=== PATIENT | male | born 1955 | race Caucasian/White ===

== ENCOUNTER → 2018-05-28 08:18 | Outpatient (BNVA) | payer OTHER, MEDICARE, SELFPAY | PROVIDERS: PCP Family Medicine; Visit Provider Urology | DX: N40.1 Benign prostatic hyperplasia with lower urinary tract symptoms (principal); I10 Essential (primary) hypertension; R35.0 Frequency of micturition; R39.15 Urgency of urination | CPT/HCPCS: 99213 ==

== ENCOUNTER → 2019-05-30 09:13 | Outpatient (BNVA) | payer OTHER, MEDICARE, SELFPAY | PROVIDERS: PCP Family Medicine; Referring Provider Family Medicine; Visit Provider Urology | DX: N40.1 Benign prostatic hyperplasia with lower urinary tract symptoms (principal); I10 Essential (primary) hypertension | CPT/HCPCS: 99213 ==

== ENCOUNTER 2024-08-01 15:19 | Outpatient (CLI) | payer OTHER, MEDICARE, SELFPAY ==
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
--- OUTSIDE RECORDS SUMMARY | 2024-08-01 15:24 | XMS_ITS | Clinical Summary ---
Author Organization [facility] Address [facility] Javier stephens [address] Care Team Providers Care Network Relations Consultant Name Role Phone Melvin Alarcon MD Primary Care Provider [phone] Allergies No known active allergies Medications Medication Sig Dispensed Refills Start Date End Date Status amlodipine-benazepr il (LOTREL) 5-10 mg per capsule Take 1 capsule by mouth daily. Active levothyroxine (Synthroid) 150 mcg tabletIndications:h ypothyroidism Take 150 mcg by mouth daily. Indications: hypothyroidism Active celecoxib (CELEBREX) 100 mg capsule Take 100 mg by mouth every other day. prn Active rosuvastatin (Crestor) 10 mg Tablet Take 10 mg by mouth daily. Active tamsulosin (FLOMAX) 0.4 mg Capsule, Sust. Release 24 hr Take 0.4 mg by mouth daily. Active betamethasone dipropionate (DIPROLENE) 0.05 % Ointment Apply topically 2 times daily. Prn Active tadalafiL (Cialis) 5 mg tablet Take 5 mg by mouth. Twice a week 03/28/2022 Active ixekizumab (Taltz Autoinjector, 3 Pack,) 80 mg/mL Auto-InjectorIndica tions:moderate to severe plaque psoriasis,psoriatic arthritis,L40.9, L40.50 Inject the contents of 2 pens (160mg) subcutaneously on week 0, then inject 1 pen (80mg) subcutaneously every 2 weeks on weeks 2, 4, 6, 8, 10, and 12, then inject 1 pen (80mg) subcutaneously every 28 days thereafter. Indications: moderate to severe plaque psoriasis, psoriasis associated with arthritis, L40.9, L40.50 3 mL 10/07/2023 Active ixekizumab (Taltz Autoinjector, 2 Pack,) 80 mg/mL Auto-InjectorIndica tions:moderate to severe plaque psoriasis,psoriatic arthritis,L40.9, L40.50 After first prescription, Inject 1 pen (80 mg) subcutaneously on weeks 4, 6, 8, 10 and 12, then move to prescription #3 for maintenance dosing. Indications: moderate to severe plaque psoriasis, psoriasis associated with arthritis, L40.9, L40.50 2 mL 1 10/07/2023 Active ixekizumab (Taltz Autoinjector) 80 mg/mL Auto-Injector INJECT 80 MG UNDER THE SKIN ON WEEK 12, THEN EVERY 4 WEEKS THEREAFTER 1 mL 12 07/20/2024 Active Hospital, Clinic, or Other Facility Administered Medication Ordered Dose Route Frequency Start Date End Date Status lidocaine (Xylocaine) 4 % (40 mg/mL) solution Top EVERY 4 HOURS PRN 06/19/2021 Active lidocaine (Xylocaine) 4 % (40 mg/mL) solution Top ONCE PRN 07/02/2022 Active lidocaine (Xylocaine) 4 % (40 mg/mL) solution Top EVERY 4 HOURS PRN 07/22/2023 Active Active Problems Problem Noted Date Diagnosed Date Benign prostatic hyperplasia with lower urinary tract symptoms 01/27/2019 Depression 01/27/2019 AAA (abdominal aortic aneurysm) without rupture 01/09/2017 Congenital nevus 02/25/2013 Dysphagia, unspecified(787.20) 02/03/2012 DIFFICULT AIRWAY 12/22/2011 Claustrophobia 12/17/2011 Overview (12/17/2011): Needs sedation for scans Ulnar neuropathy 12/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 1 PPD x 38 yrs. Quit 08/2011. Developed odynophagia early 11/2011, abx did not improve, . Referred to ENT. He does note some coughing in the morning ove the past year. Stagin12/09/11 CT H&N with contrast ([facility]): Mixed attenuation mass with lare low density areas suggesting necrotic change present deep to anterior aspect L SCM. Mass smoothly marginated, max 3.3 x 5.2 cm. 11/27/11 PET-[place] Despite premedication, severe claustrophobia allowed this can only to be performed from the lower chest to the mid thighs. The CT portion of the examination was performed from the top of the head to the mid thighs: This study is of limited diagnostic value. Due to claustrophobia no scanning of the head, neck or upper chest was performed. No distant metastases are identified in this study. 12/12/11 EUA with triple endoscopy and biospy: Findings: LPR changes to the mucosa. Difficult to visualize the larynx. Left tonsil is firm. Ulcerative area at the left tongue base also suspicious for primary. BOT and tonsil seem to be discontiguous. Path: A - Cyst, left vallecula: Benign squamous lined cyst B - Left tongue base: Invasive squamous cell carcinoma, intermediate grade C - Left tonsil: negative for malignancy Positive for HPV genotype p16 Therapy: Enrolled on RTOG 1016, randomized to cetuximab arm. Received 70 Gy completed 04/06/12 Resolved Problems Problem Noted Date Diagnosed Date Resolved Date Cigarette smoker 12/12/2011 12/16/2012 Thalassemia 12/12/2011 12/12/2011 Encounters Date Type Department Care Team Description 07/23/2024 [place] [phone] Tanner Frost MD 07/22/2024 9:30 AM EST Office [place] [address] Brandon Gregorio MD 07/22/2024 Travel 07/19/2024 [place] [address] Tanner Frost MD 07/12/2024 8:55 AM EST Ancillary Procedure Radiology Library at [facility] [place] [address] Unknown 07/12/2024 Interpretation Only Radiology Library at [facility] [place] [address] Unknown 06/16/2024 Specialty Pharmacy Pharmacy at [place] [phone] Yasmin Pedroza, JABIER 06/15/2024 Telephone Vascular Surgery at [place] [phone] Sky Beckman 06/10/2024 Orders [place] [address] Irene Iyer, [facility] Status post endovascular aneurysm repair (EVAR); Abdominal aortic aneurysm (AAA) without rupture, unspecified part 06/08/2024 Telephone [place] [address] Sky Beckman 06/07/2024 7:38 AM EST Anesthesia [place] [address] Marion Dunn MD 06/07/2024 7:30 AM EST - 06/07/2024 11:43 AM EST [place] [address] Brandon Gregorio MD VASCULAR EMBOLIZATION/OCCLUS ION,ARTERY,OTHER THAN [employer] S&I (WRVU 9.8) 06/07/2024 7:10 AM EST Ancillary Procedure Radiology Library at [facility] [place] [address] 06/07/2024 5:54 AM EST - 06/07/2024 3:45 PM EST Hospital Encounter [place] [address] Brandon Gregorio MD Status post endovascular aneurysm repair (EVAR); Abdominal aortic aneurysm (AAA) without rupture, unspecified part Discharge Disposition: Home 06/01/2024 10:00 AM EDT Office Visit Radiation Oncology at [address] [phone] Jesse Mcmahan MD Cancer of base of tongue 06/01/2024 Travel 05/16/2024 Tele[place] [address] Dianne Gilman 05/09/2024 Orders [place] [address] Lashawn Alves, RN Status post endovascular aneurysm repair (EVAR); Abdominal aortic aneurysm (AAA) without rupture, unspecified part from Last 3 Months Family History Medical History Relation Comments Diabetes Father Heart Failure Father Abdominal Aortic Aneurysm Maternal Grandfather Abdominal Aortic Aneurysm Maternal Uncle Diabetes Mother Heart Failure Mother Thyroid Disease Mother hypothyroidism Diabetes Other Thyroid Disease Sister 2 hypothyroidism Relation Status Comments Father Alive Maternal Grandfather Maternal Grandmother Maternal Uncle Mother Alive Other Paternal Grandfather Paternal Grandmother Sister 1 Alive Sister 2 Social History Tobacco Use Types Packs/Day Years Used Date Smoking Tobacco: Former Cigarettes 1 38 0 08/06/1973 - 08/06/2011 Smokeless Tobacco: Never Tobacco Cessation:Counseling Given: Not Answered Alcohol Use Standard Drinks/Week Comments Yes 2 (1 standard drink = 0.6 oz pure alcohol) rarely one glass of wine occasionally, one every other day [facility] Inpatient Questions Answer Date Recorded Does Anyone [...] on file Sexual Orientation Not on file Last Filed Vital Signs Vital Sign Reading Time Taken Comments Blood Pressure 140/91 07/22/2024 9:31 AM EST Pulse 73 07/22/2024 9:31 AM EST Temperature 37.5 ??C (99.5 ??F) 06/07/2024 12:[address] Respiratory Rate 14 06/07/2024 3:26 PM EST Oxygen Saturation 99% 06/07/2024 3:26 PM EST Inhaled Oxygen Concentration - - Weight 94.3 kg (208 lb) 07/22/2024 9:31 AM EST Height 175.3 cm (5' 9) 07/22/2024 9:31 AM EST Body Mass Index 30.72 07/22/2024 9:31 AM EST Plan of Treatment Upcoming Encounters Date Type Department Care Team (Late st Contact Info) Description 05/24/2025 11:00 AM EDT Office Visit Radiation Oncology at [address] [phone] Jesse Mcmahan MD [facility] [place] [address] Health Maintenance Due Date Last Done Comments CT Colonography 1956 Colonoscopy 1956 Colorectal Cancer Screening 1956 FIT DNA 1956 FIT 1956 Sigmoidoscopy (10 year) with FIT yearly 1956 Sigmoidoscopy 1956 Tetanus/Diphtheria/Pertussis Vaccines (1 - Tdap) 1975 Pneumoccocal Vaccine: 65+ (1 of 1 - PCV) 2006 Zoster vaccine (1 of 2) 2006 Advance Directive 2011 RSV Vaccine (1 - Risk 60-74 years 1-dose series) 2016 Covid-19 Vaccine (4 - 2023-2 5 season) 2024 03/26/2021, 09/14/2020, 08/17/2020 Influenza (Flu) vaccine (1 o f 1 - Influenza standard series) 2024 Diabetes Screening (HgbA1C o r Glucose) 01/02/2026 01/02/2023, 01/29/2019, 01/28/2019, Additional history exists AAA Screen Completed 03/04/2019, 12/21/2018 Hepatitis C Screening Completed 01/02/2023 Medical Devices Implanted Type Area Globe Cleaner Device Identifier Shelf Expiration Date Model / Serial / Lot Embold Fibered [id number] Implanted:Qty: 2 on 06/07/2024 by Brandon Gregorio MD at [facility] Coil N/A: Arterial [employer] 03/31/2026 [id number] / / [id number] Description:Lumbar Embold Fibered [id number] Implanted:Qty: 3 on 06/07/2024 by Brandon Gregorio MD at [facility] Coil N/A: Arterial [employer] 03/30/2026 [id number] / / [id number] Description:Lumbar Embold Fibered [id number] Implanted:Qty: 1 on 06/07/2024 by Brandon Gregorio MD at [facility] Coil N/A: Arterial [employer] 03/15/2026 [id number] / / [id number] Description:lumbar Fibered Embold Implanted:Qty: 1 on 06/07/2024 by Brandon Gregorio MD at [facility] Coil Arterial [employer] 03/18/2026 [id number] / / [id number] Description:lumbar Embold Fibered [id number] Implanted:Qty: 2 on 06/07/2024 by Brandon Gregorio MD at [facility] Coil Right: Arterial [employer] [id number] 03/31/2026 [id number] / / [id number] Description:RIGHT hypogastri c artery Graft,Endp,26m m,14.5mm,16cm ([id number]) ([employer]oreq) - [id number] Implanted:Qty: 1 on 01/28/2019 by Brandon Gregorio MD at [facility] IMPLANTS N/A: Aorta [employer] 09/26/2021 [id number] / Description:[place] Cap Pricing item Closu,Vsl,Prcl ,Prgld,Smc,6fr ([id number]) - [id number] Implanted:Qty: 3 on 01/28/2019 by Brandon Gregorio MD at [facility] IMPLANTS N/A: Aorta [employer] 09/30/2020 [id number] / [id number] / Description:2 left groin, 1 right groin Graft,Excl,14. [id number] ([id number]) ([employer]) - [id number] Implanted:Qty: 1 on 01/28/2019 by Brandon Gregorio MD at [facility] IMPLANTS N/A: Arterial [employer] 11/01/2021 [id number] / [id number] / Description:Right Iliac Dorina ry. [place] Cap Pricing item Graft,Excl,16m [id number] ([id number]) ([employer]) - [id number] Implanted:Qty: 1 on 01/28/2019 by Brandon Gregorio MD at [facility] IMPLANTS N/A: Arterial [employer] 06/17/2021 [id number] / [id number] / Description:Left Iliac Arter y. 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 [employer] Poly ([id number]) - [id number] Implanted:Qty: 1 on 06/07/2024 by Brandon Gregorio MD at [facility] IMPLANTS Right: Arterial [employer] [id number] 10/31/2025 [id number] / / [id number] Description:femoral artery Device Vascular Closure [id number] 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 [employer] ([id number]) - [id number] Implanted:Qty: 1 on 06/07/2024 by Brandon Gregorio MD at [facility] IMPLANTS Left: Arterial [employer] 10/31/2025 [id number] / / [id number] Description:femoral artery Procedures Procedure Name Priority Date/Time Associated Diagnosis Comments FILM LIBRARY STORAGE ONLY CT ABDOMEN AND PELVIS Routine 07/12/2024 8:[address] SCAN (SCAN) 07/12/2024 12:00 AM EST BLOOD GAS ARTERIAL POC Routine 06/07/2024 12:18 PM EST BLOOD GAS ARTERIAL POC Routine 06/07/2024 12:11 PM EST BLOOD GAS ARTERIAL POC Routine 06/07/2024 8:48 AM EST Vascular Embolization Or Occlusion Arterial Rad S&I(41340) 06/07/2024 7:37 AM EST Status post endovascular aneurysm repair (EVAR) Abdominal aortic aneurysm (AAA) without rupture, unspecified part IR OR VASC ANGIOGRAM IMAGE STORAGE ONLY Routine 06/07/2024 7:06 AM EST CREATININE STAT 06/07/2024 6:37 AM EST Status post endovascular aneurysm repair (EVAR) Abdominal aortic aneurysm (AAA) without rupture, unspecified part VASCULAR EMBOLIZATION/OCCLUSIO N,ARTERY,OTHER THAN HEMORRHAGE, INC. S&I Routine 06/07/2024 5:58 AM EST Status post endovascular aneurysm repair (EVAR) Abdominal aortic aneurysm (AAA) without rupture, unspecified part IMPLANTABLE DEVICES SCAN 06/07/2024 12:00 AM EST HEPATITIS C ANTIBODY Routine 01/02/2023 11:45 AM EDT Psoriasis with arthropathy COMPREHENSIVE METABOLIC PANEL Routine 01/02/2023 11:45 AM EDT Psoriasis with arthropathy CT ANGIOGRAM ABDOMEN AND PELVIS W CONTRAST Routine 03/04/2019 1:00 PM EDT AAA (abdominal aortic aneurysm) without rupture from Last 3 Months or Most Recently Relevant to Health Maintenance Results * Film Library- Storage Only CT Abdomen & Pelvis (07/12/2024 8:55 AM EST) 07/12/2024 10:2 6 AM EST Narrative [facility] - 07/12/2024 10:26 AM EST This exam is auto-finalizing. It's purpose is for storage only. Unknown IMG FILM LIBRARY ORD ERABLES ED Ferreira * Scan Doc: CT Scan (07/12/2024 12:00 AM EST) Anatomical Region Laterality Modality Other Narrative 07/12/2024 12:00 AM EST Ordered by an unspecified provider. Scanning Provider MEDIA MGR SCAN EXT O RDR/RSLT * (ABNORMAL) Blood Gas, Arterial POC (06/07/2024 12:18 PM EST) Only the most recent of3 resultswithin the time period is included. pH, Arterial 7.40 7.35 - 7.45 06/07/2024 12:19 PM [facility] PH Corrected, Arterial 7.41 7.35 - 7.45 06/07/2024 12:19 PM [facility] PCO2, Arterial 38 35 - 45 mmHg 06/07/2024 12:19 PM [facility] PCO2 Corrected, Arterial 38 35 - 45 mmHg 06/07/2024 12:19 PM [facility] PO2, Arterial 150(H) 85 - 104 mmHg 06/07/2024 12:19 PM [facility] PO2 Corrected, Arterial 148.5(H) 85 - 104 mmHg 06/07/2024 12:19 PM [facility] Bicarbonate, Arterial 23.2 20.0 - 26.0 mmol/L 06/07/2024 12:19 PM [facility] Base Excess, Arterial -1.5 -3.0 - 3.0 mmol/L 06/07/2024 12:19 PM [facility] Hemoglobin, Arterial 12.7(L) 13.7 - 16.5 g/dL 06/07/2024 12:19 PM [facility] Oxyhemoglobin, Arterial 97.9(H) 94.0 - 97.0 % 06/07/2024 12:19 PM [facility] Carboxyhemoglobin , Arterial 0.4 % 06/07/2024 12:19 PM [facility] Comment: Nonsmokers: 0.5-1.5% COHB ?? Smokers: Variable ??but usually less than 10% ?? Toxic: 20-30% COHB ?? Lethal: Greater than 60% COHB Methemoglobin, Arterial 0.5 <=1.5 % 06/07/2024 12:19 PM [facility] Sodium, Arterial 136 135 - 145 mmol/L 06/07/2024 12:19 PM [facility] Potassium, Arterial 4.4 3.5 - 5.0 mmol/L 06/07/2024 12:19 PM [facility] Chloride, Arterial 104 98 - 107 mmol/L 06/07/2024 12:19 PM [facility] Lactate, Arterial 3.0(H) 0.5 - 2.2 mmol/L 06/07/2024 12:19 PM [facility] Fraction of Inspired Oxygen 59 % 06/07/2024 12:19 PM [facility] Flow Rate 0.6 L/min 06/07/2024 12:19 PM [facility] PF Ratio 254 Ratio 06/07/2024 12:19 PM [facility] Comment:PF ratio calculated using the non-temperature corrected pO2 result. Patient Temperature 36.7 C 06/07/2024 12:19 PM [facility] IONIZED CALCIUM, ARTERIAL 1.15 1.15 - 1.33 mmol/L 06/07/2024 12:19 PM [facility] Glucose, Arterial 107 65 - 199 mg/dL 06/07/2024 12:19 PM [facility] Comment:Glucose Concentratio n >=200 mg/dL plus symptoms is consistent with Diabetes Mellitus. Blood ARTERIAL BLOOD / Unknown 06/07/2024 12:18 PM EST 06/07/2024 12:19 PM EST Brandon Gregorio MD POINT OF CARE TEST O RDERABLES Performing Organization Address City/[facility]/ZIP Co de Phone Number [facility] [place] [address] * IR OR VASC Aniogram Image Storage Only (06/07/2024 7:06 AM EST) Narrative [facility] - 06/07/2024 7:06 AM EST This exam is auto-finalizing. It's purpose is for storage only. Brandon Gregorio MD IMG FILM LIBRARY ORD ERABLES Performing Organization Address City/[facility]/ZIP Co de Phone Number [place], [place] * Creatinine (06/07/2024 6:37 AM EST) Creatinine 0.89 0.80 - 1.50 mg/dL 06/07/2024 7:14 AM EST [facility] Est Glomerular Filtration Rate - Male 93 mL/min/1. 73 m?? 06/07/2024 7:14 AM EST [facility] Comment: This patient's estimated GFR was calculated using the 2020 CKD-EPI equation. The estimated GFR can vary from the measured GFR by up to 30% in the absence of rapidly changing kidney function. Assessment of the estimated GFR is not appropriate when creatinine concentrations are rapidly changing. For clinical situations in which a more precise estimate of GFR is necessary, consider alternative methods of GFR estimation such as a 24-hour urine creatinine clearance. Assignment of CKD stage 1 - 5 for patients with an eGFR near the transition point between stages may be based on clinical assessment of muscle mass and symptoms in addition to eGFR. Link: eGFR Calculator [employer] Blood VENOUS BLOOD SPECIMEN / Unknown Venipuncture / Unknown 06/07/2024 6:37 AM EST 06/07/2024 6:43 AM EST Dhara Prabhakar [employer]DEL [employer]GRAPH[employer]' CHEMISTRY ORDERABLES Performing Organization Address [facility]/ZIP Co de Phone Number [facility] [place] [address] * Scan Doc: Implantable Devices (06/07/2024 12:00 AM EST) Narrative 06/07/2024 12:00 AM EST Ordered by an unspecified provider. Scanning Provider MEDIA MGR SCAN EXT O RDR/RSLT * Hepatitis C Antibody (01/02/2023 11:45 AM EDT) Hepatitis C Antibody Negative Negative [facility] Blood 01/02/2023 11:4 5 AM EDT 01/02/2023 12:05 PM EDT Narrative Resulting Agency Comment Spec In Lab Tanner Frost MD CHEMISTRY ORDERABLES [facility] [place] [address] * Comprehensive metabolic panel (non-fasting) (01/02/2023 11:45 AM EDT) Glucose 105 65 - 199 mg/dL [facility] Comment:Diabetes: >=200 mg/d L plus symptoms Blood Urea Nitrogen 15 10 - 20 mg/dL [facility] Creatinine 0.91 0.80 - 1.50 mg/dL [facility] Sodium 140 135 - 145 mmol/L [facility] Potassium 4.0 3.5 - 5.0 mmol/L [facility] Comment: Please note: ??Patients with WBC >100,000 may have falsely elevated Potassium levels. ??For accurate Potassium quantification in these patients send serum separator tube (gold top) for subsequent determinations. ??Contact the Clinical Chemistry Laboratory if there are any questions. Chloride 104 98 - 107 mmol/L [facility] Carbon Dioxide 26 22 - 31 mmol/L [facility] Anion Gap 10 5 - 15 mmol/L [facility] Calcium 9.6 8.5 - 10.5 mg/dL [facility] Protein, Total 6.8 6.1 - 8.0 g/dL [facility] Albumin 4.2 3.2 - 5.2 g/dL [facility] Aspartate Aminotransferase 19 0 - 39 unit/L [facility] Alanine Aminotransferase 14 0 - 55 unit/L [facility] Alkaline Phosphatase 90 40 - 130 unit/L [facility] Bilirubin, Total 0.6 0.2 - 1.3 mg/dL [facility] Est Glomerular Filtration Rate 93 >=60 mL/min/1. 73 m?? [facility] Comment: This patient's estimated GFR was calculated using the 2020 CKD-EPI equation. The estimated GFR can vary from the measured GFR by up to 30% in the absence of rapidly changing kidney function. Assessment of the estimated GFR is not appropriate when creatinine concentrations are rapidly changing. For clinical situations in which a more precise estimate of GFR is necessary, consider alternative methods of GFR estimation such as a 24-hour urine creatinine clearance. Assignment of CKD stage 1-5 for patients with an eGFR near the transition point between stages may be based on clinical assessment of muscle mass and symptoms in addition to eGFR. Blood 01/02/2023 11:4 5 AM EDT 01/02/2023 12:05 PM EDT Narrative Resulting Agency Comment Spec In Lab Tanner Frost MD CHEMISTRY ORDERABLES [facility] [place] [address] * CT Angiogram Abdomen & Pelvis w Contrast (Generic) (03/04/2019 1:00 PM EDT) Anatomical Region Laterality Modality Abdomen, Pelvis Computed Tomogra phy Impressions 03/04/2019 2:37 PM EDT Status post endovascular repair of infrarenal abdominal aortic aneurysm with bifurcated aortoiliac stent graft. Possible small endoleak (type II) noted as described above. ?? I have personally reviewed the image(s) and the residents interpretation and agree with the findings, Bernardino Roberts at 03/04/2019 2:37 PM Thank you for letting us participate in the care of this patient. For questions regarding this report, please contact the number below. ? Electronically signed by: Bernardino Roberts [facility] ([phone]), at 03/04/2019 2:37 PM Narrative 03/04/2019 2:37 PM EDT EXAMINATION: CT ANGIOGRAM ABDOMEN AND PELVIS W CONTRAST (GENERIC) CLINICAL HISTORY: AAA s/p EVAR, interval f/u TECHNIQUE: Helical CT angiogram of the abdomen and pelvis was performed following intravenous administration of contrast. Administered 76.0 ml of OMNIPAQUE 350.00 mg/ml. MPRs were performed. Multiplanar images were reviewed and 3-D images were generated on an independent workstation. COMPARISON: CTA abdomen and pelvis 12/21/2018. FINDINGS: VASCULAR FINDINGS Abdominal aorta: There has been previous endovascular repair of infrarenal abdominal aortic aneurysm with bifurcated aortoiliac stent graft. [place] sac now measures 58 x 50 mm in maximum dimension on centerline reformatted images (in the axial plane it measures 55 x 59 mm). On the arterial phase images a small blush of enhancement is seen external to the endograft in the [place] aneurysm sac in the location of the origin of the inferior mesenteric artery (series 4, image 267). This is not visualized on the delayed postcontrast images.. Celiac: Widely patent. SMA: Widely patent. Right renal artery: Widely patent. Left renal artery: Widely patent. Accessory left renal artery is present and is also widely patent. CHAU: Widely patent. Right: Common iliac artery: Widely patent. External iliac artery: Widely patent. Internal iliac artery: Widely patent. Common femoral artery: Widely patent. Superficial femoral artery: The visualized aspects are widely patent. Profundus femoral artery: The visualized aspects are widely patent. Left: Common iliac artery: Widely patent. External iliac artery: Widely patent. Internal iliac artery: Widely patent. Common femoral artery: Widely patent. Superficial femoral artery: The visualized aspects are widely patent. Profundus femoral artery: The visualized aspects are widely patent. NON-VASCULAR FINDINGS Lower chest: Normal. Liver: Enlarged with mild steatosis. Bile ducts: Nondilated. Gallbladder: No calcified gallstones. Normal caliber wall. Pancreas: Normal attenuation without ductal dilatation. Spleen: Normal. Kidneys/adrenals: 13 mm left upper pole renal cyst is unchanged. Urinary Bladder: Normal. Lymph Nodes: No enlarged lymph nodes. Bowel: Nondilated, no wall thickening. Sigmoid diverticulosis without evidence of diverticulitis. Peritoneum and mesentery: No ascites, free air, or loculated fluid collection. No mesenteric inflammation. Osseous structures: No suspicious findings. Procedure Note Bernardino Roberts MD - 03/04/2019 EXAMINATION: CT ANGIOGRAM ABDOMEN AND PELVIS W CONTRAST (GENERIC) CLINICAL HISTORY: AAA s/p EVAR, interval f/u TECHNIQUE: Helical CT angiogram of the abdomen and pelvis was performed following intravenous administration of contrast. Administered 76.0 mlof OMNIPAQUE 350.00 mg/ml. MPRs were performed. Multiplanar images werereviewed and 3-D images were generated on an independent workstation. COMPARISON: CTA abdomen and pelvis 12/21/2018. FINDINGS: VASCULAR FINDINGS Abdominal aorta: There has been previous endovascular repair ofinfrarenal abdominal aortic aneurysm with bifurcated aortoiliac stent graft. Nativesac now measures 58 x 50 mm in maximum dimension on centerline reformatted images(in the axial plane it measures 55 x 59 mm). On the arterial phase images asmall blush of enhancement is seen external to the endograft in the nativeaneurysm sac in the location of the origin of the inferior mesenteric artery(series 4, image 267). This is not visualized on the delayed postcontrast images.. Celiac: Widely patent. SMA: Widely patent. Right renal artery: Widely patent. Left renal artery: Widely patent. Accessory left renal artery is presentand is also widely patent. CHAU: Widely patent. Right: Common iliac artery: Widely patent. External iliac artery: Widely patent. Internal iliac artery: Widely patent. Common femoral artery: Widely patent. Superficial femoral artery: The visualized aspects are widely patent. Profundus femoral artery: The visualized aspects are widely patent. Left: Common iliac artery: Widely patent. External iliac artery: Widely patent. Internal iliac artery: Widely patent. Common femoral artery: Widely patent. Superficial femoral artery: The visualized aspects are widely patent. Profundus femoral artery: The visualized aspects are widely patent. NON-VASCULAR FINDINGS Lower chest: Normal. Liver: Enlarged with mild steatosis. Bile ducts: Nondilated. Gallbladder: No calcified gallstones. Normal caliber wall. Pancreas: Normal attenuation without ductal dilatation. Spleen: Normal. Kidneys/adrenals: 13 mm left upper pole renal cyst is unchanged. Urinary Bladder: Normal. Lymph Nodes: No enlarged lymph nodes. Bowel: Nondilated, no wall thickening. Sigmoid diverticulosis withoutevidence of diverticulitis. Peritoneum and mesentery: No ascites, free air, or loculated fluidcollection. No mesenteric inflammation. Osseous structures: No suspicious findings. IMPRESSION Status post endovascular repair of infrarenal abdominal aortic aneurysmwith bifurcated aortoiliac stent graft. Possible small endoleak (type II) notedas described above. I have personally reviewed the image(s) and the residents interpretationand agree with the findings, Bernardino Roberts at 03/04/2019 2:37 PM Thank you for letting us participate in the care of this patient. Forquestions regarding this report, please contact the number below. Electronically signed by: Beranrdino Roberts [facility]([phone]), at 03/04/2019 2:37 PM Brandon Gregorio MD IMG CT ORDERABLES from Last 3 Months or Most Recently Relevant to Health Maintenance Advance Directives Documents on File Type Date Recorded Patient It Quality Analyst Expl anation Personal It Quality Analyst 04/15/2024 10:42 AM Personal It Quality Analyst * Full Code (Latest Code Status on File) Date Activated Date Inactivated Comments 01/28/2019 7:55 AM 01/29/2019 2:53 PM Question Answer Comments Does patient have capacity to make decision: Yes Care Teams Network Relations Consultant Relationship Specialty Start Date End Date Melvin Alarcon MD [address] [place] [address] PCP - General Internal Medicine 07/22/23
--- OUTSIDE RECORDS SUMMARY | 2024-08-01 15:24 | XMS_ITS | Encounter Summary ---
Author Organization [facility] [place] [place] [address] Care Team Providers Care Stallion Keeper Name Role Phone Melvin Alarcon MD Primary Care Provider [phone] Reason for Visit * Reason Comments Medication Refill Encounter Details Date Type Department Care Team (Late st Contact Info) Description 07/19/2024 [place] [address] Tanner Frost MD [facility] [place] [address] Social History Tobacco Use Types Packs/Day Years Used Date Smoking Tobacco: Former Cigarettes 1 38 0 08/06/1973 - 08/06/2011 Smokeless Tobacco: Never Alcohol Use Standard Drinks/Week Comments Yes 2 (1 standard drink = 0.6 oz pure alcohol) rarely one glass of wine occasionally, one every other day [facility] Inpatient Questions Answer Date Recorded Does Anyone [...] on file documented as of this encounter Plan of Treatment Upcoming Encounters Date Type Department Care Team (Late Contact Info) Description 05/24/2025 11:00 AM EDT Office Visit Radiation Oncology at [address] [phone] Jesse Mcmahan MD [facility] [place] [address] documented as of this encounter Visit Diagnoses Not on filedocumented in this encounter Care Teams Stallion Keeper Relationship Specialty Start Date End Date Melvin Alarcon MD [address] [place] [address] PCP - General Internal Medicine 07/22/23 documented as of this encounter
--- OUTSIDE RECORDS SUMMARY | 2024-08-01 15:24 | XMS_ITS | Encounter Summary ---
Author Organization [facility] [place] [address] Care Team Providers Care Product Representative Name Role Phone Melvin Alarcon MD Primary Care Provider Encounter Details Date Type Department Care Team (Latest Contact Info) Description 07/22/2024 Travel Social History Tobacco Use Types Packs/Day Years Used Date Smoking Tobacco: Former Cigarettes 1 38 0 08/06/1973 - 08/06/2011 Smokeless Tobacco: Never Alcohol Use Standard Drinks/Week Comments Yes 2 (1 standard drink = 0.6 oz pure alcohol) rarely one glass of wine occasionally, one every other day [facility] Inpatient Questions Answer Date Recorded Does Anyone [...] AM EDT Office Visit Radiation Oncology at [address] [phone] Jesse Mcmahan MD [facility] [place] [address] documented as of this encounter Visit Diagnoses Not on filedocumented in this encounter Care Teams Product Representative Relationship Specialty Start Date End Date Melvin Alarcon MD [address] [place] [address] PCP - General Internal Medicine 07/22/23 documented as of this encounter
--- OUTSIDE RECORDS SUMMARY | 2024-08-01 15:24 | XMS_ITS | Encounter Summary ---
Author Organization [facility] [address] [place] [address] Care Team Providers Care Regional Tanker Truck Driver Name Role Phone Melvin Alarcon MD Primary Care Provider [phone] Reason for Visit * Reason Comments Medication Refill Encounter Details Date Type Department Care Team (Late st Contact Info) Description 07/23/2024 Refill [place] [address] Tanner Frost MD [facility] [place] [address] Social History Tobacco Use Types Packs/Day Years Used Date Smoking Tobacco: Former Cigarettes 1 38 0 08/06/1973 - 08/06/2011 Smokeless Tobacco: Never Alcohol Use Standard Drinks/Week Comments Yes 2 (1 standard drink = 0.6 oz pure alcohol) rarely one glass of wine occasionally, one every other day [facility] Inpatient Questions Answer Date Recorded [...] AM EDT Office Visit Radiation Oncology at [address] [address] Jesse Mcmahan MD [facility] [place] [address] documented as of this encounter Visit Diagnoses Not on filedocumented in this encounter Care Teams Regional Tanker Truck Driver Relationship Specialty Start Date End Date Melvin Alarcon MD [address] [place] [address] PCP - General Internal Medicine 07/22/23 documented as of this encounter
--- OUTSIDE RECORDS SUMMARY | 2024-08-01 15:25 | XMS_ITS | Encounter Summary ---
[place] [address] Care Team Providers Care Microsoft Dynamics Developer Name Role Phone Melvin Alarcon MD Primary Care Provider [phone] Encounter Details Date Type Department Care Team (Latest Contact Info) Description 12/25/2023 Specialty [place] [phone] Maxi Cartagena [facility] Intervention - Manual (ixekizumab) for Rheumatology Social History Tobacco Use Types Packs/Day Years Used Date Smoking Tobacco: Former Cigarettes 1 38 0 08/06/1973 - 08/06/2011 Smokeless Tobacco: Never Alcohol Use Standard Drinks/Week Comments Yes 1 (1 standard drink = 0.6 oz pure alcohol) rarely one glass of wine occasionally Sex and Gender Information Value Date Recorded Sex Assigned at Not on file Gender Identity Not on file Sexual Orientation Not on file documented as of this encounter Progress Notes * Maxi Cartagen[facility] - 12/25/2023 3:02 PM EDT Specialty Pharmacy Consultation; Maxi Cartagena RPH Comprehensive Medication Management (CMM): Specialty Consult, Intervention Sebastian Del Cidal 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 Sebastian Wyatt is a 68 y.o. (1955) male who was contacted in regard to specialty medication intervention. Spoke with Lula regarding Taltz. Recommendation: Clinic received a fax requesting new prescription for Taltz, however prescriptions to cover the whole year were sent to [facility] on 10/08/23. Outcome: Called [facility] and spoke with Lula. She was able to confirm that the pharmacy had received all 3 prescriptions to cover his loading and maintenance doses. No further action needed at this time. Specialty Pharmacy Intervention: Intervention Category (Nature of Intervention): Other Other Interventions: Coordinate non-financial specialty medication issues (eg, sites of care, discharge counseling, infusion coordination) Maxi Cartagena RPH 12/25/23 3:08 PM documented in this encounter Plan of Treatment Upcoming Encounters Date Type Department Care Team (Late st Contact Info) Description 05/24/2025 11:00 AM EDT Office Visit Radiation Oncology at [address] [phone] Jesse Mcmahan MD [facility] [place] [address] documented as of this encounter Visit Diagnoses Diagnosis Psoriasis with arthropathy Psoriatic arthropathy documented in this encounter Care Teams Microsoft Dynamics Developer Relationship Specialty Start Date End Date Melvin Alarcon MD [address] [place] [address] PCP - General Internal Medicine 07/22/23 documented as of this encounter
--- OUTSIDE RECORDS SUMMARY | 2024-08-01 15:25 | XMS_ITS | Encounter Summary ---
Author Organization [facility] [place] [address] Care Team Providers Care Research Compliance Specialist Name Role Phone Melvin Alarcon MD Primary Care Provider [phone] Encounter Details Date Type Department Care Team (Late st Contact Info) Description 06/15/2024 Telephone [place] [phone] Sky Beckman Social History Tobacco Use Types Packs/Day Years Used Date Smoking Tobacco: Former Cigarettes 1 38 0 08/06/1973 - 08/06/2011 Smokeless Tobacco: Never Alcohol Use Standard Drinks/Week Comments Yes 2 (1 standard drink = 0.6 oz pure alcohol) rarely one glass of wine occasionally, one every other day [facility] Inpatient Questions Answer Date Recorded Does [...] on file documented as of this encounter Miscellaneous Notes * Telephone Encounter - Sky Beckman - 06/15/2024 8:[address] order for prior authorization, patient would like this completed at [facility]. documented in this encounter Plan of Treatment Upcoming Encounters Date Type Department Care Team (Late st Contact Info) Description 05/24/2025 11:00 AM EDT Office Visit Radiation Oncology at [address] [address] Jesse Mcmahan MD [facility] [place] [address] documented as of this encounter Visit Diagnoses Not on filedocumented in this encounter Care Teams Research Compliance Specialist Relationship Specialty Start Date End Date Melvin Alarcon MD [address] [place] [address] PCP - General Internal Medicine 07/22/23 documented as of this encounter
--- OUTSIDE RECORDS SUMMARY | 2024-08-01 15:25 | XMS_ITS | Encounter Summary ---
Author Organization [facility] [address] [place] [address] Care Team Providers Care Security Rover Name Role Phone Melvin Alarcon MD Primary Care Provider [phone] Encounter Details Date Type Department Care Team (Late Contact Info) Description 03/02/2024 Interpretation Only Radiology Library at [facility] [place] [phone] Unknown None Social History Tobacco Use Types Packs/Day Years [...] AM EDT Office Visit Radiation Oncology at [address] [address] Jesse Mcmahan MD [facility] [place] [address] documented as of this encounter Procedures Procedure Name Priority Date/Time Associated Diagnosis Comments FILM LIBRARY STORAGE ONLY CT ABDOMEN Routine 03/02/2024 8:30 AM EDT documented in this encounter Results * Film Library- Storage Only CT Abdomen (03/02/2024 8:30 AM EDT) 03/02/2024 10:2 1 AM EDT Narrative RAD - 03/02/2024 10:21 AM EDT This exam is auto-finalizing. It's purpose is for storage only. Unknown IMG FILM LIBRARY ORD ERABLES [place], [place] documented in this encounter Visit Diagnoses Not on filedocumented in this encounter Care Teams Security Rover Relationship Specialty Start Date End Date Melvin Alarcon MD [address] [place] [address] PCP - General Internal Medicine 07/22/23 documented as of this encounter
--- OUTSIDE RECORDS SUMMARY | 2024-08-01 15:25 | XMS_ITS | Encounter Summary ---
[place] [address] Care Team Providers Care Publishing Systems Analyst Name Role Phone Melvin Alarcon MD Primary Care Provider [phone] Reason for Visit * Reason Comments Prior Authorization Taltz 80mg/ml SOAJ Encounter Details Date Type Department Care Team (Late st Contact Info) Description 10/07/2023 Specialty [place] [phone] Yasmin Pedroza, [facility] Social History Tobacco Use Types Packs/Day Years [...] as of this encounter Progress Notes * Yasmin Myers - 10/07/2023 11:58 AM EST [facility], Medication Prior Authorization Submission Patient: Sebastian Wyatt Patient : 1955 Patient Address: [address] [address] (home) Medication Name: TALTZ AUTOINJECTOR (3 PACK) 80 MG/ML SUBCUTANEOUS Medication ID: Subscriber Insurance: [employer] ([facility]) Subscriber Insurance Comment: Fax: Physician: KALLIE GIL Physician Comment: Sent Via: [facility] L[place]: [id number] Ref/Case/PA#: Medication Strength Frequency Requested: Taltz 80mg/ml SOAJ INJECT THE CONTENTS OF 2 PENS (160MG) SUBCUTANEOUSLY ON WEEK 0, THEN INJECT 1 PEN (80MG) SUBCUTANEOUSLY EVERY 2 WEEKS ON WEEKS 2, 4, 6, 8, 10, AND 12, THEN INJECT 1 PEN (80MG) SUBCUTANEOUSLY EVERY 28 DAYS THEREAFTER Qty/Day Supply: 10/28 New Start: New to Therapy Diagnosis & ICD-10 Code: Psorisis L40.9, Psoriatic Arthritis L40.50 Patient Notified: Yes Submission Notes: - New Medication Yasmin Myers 10/07/23 12:00 PM * Yasmin Myers - 10/07/2023 11:58 AM EST [facility], Prior Authorization Approval Medication Name: TALTZ AUTOINJECTOR (3 PACK) 80 MG/ML SUBCUTANEOUS Medication ID: Approval Dates: 09/07/2023 to 01/05/2024 Insurance requirements/notes: - Patient must fill with [facility]. Other Notes: - customer relations representative confirmed that all dosing schedules are covered under the prior authorization. Their plan has a maximum quantity limit of 3 pens per 28 days, so as long as the quantity is 3 or less, they do not require an additional prior authorization. Case/Reference #: [id number] Approval notification Received via: Fax Copay: Unknown - patient must fill with outside pharmacy Copay assistance: None Copay Notes: NA Insurance mandated Pharmacy: [facility] Fillable at [facility]: No Patient Notified: Left Voicemessage Pharmacy staff will be reaching out to the patient to inform them of their medication's approval bytheir insurance. If applicable, a pharmacist will speak with the patient to offer our specialty pharmacy services and to arrange delivery of their medication. Yasmin Myers 10/08/23 10:56 AM * Ama Martin [facility] - 10/07/2023 11:58 AM EST Specialty Pharmacy Consultation; Ama Martin [facility] Comprehensive Medication Management (CMM): Specialty Consult, Intervention Sebastian Wyatt Diagnosis: PsA Contact in person or via telephone: via telephone (LVM) Mr. Sebastian Wyatt is a 68 y.o. (1955) male who was contacted in regard to specialty medication intervention. LVM with patient regarding Taltz. Recommendation: Sebastian Wyatt was contacted to discuss Taltz and to make sure he signs up for the co-pay card. Outcome: I will follow up in a few days. Specialty Pharmacy Intervention: Intervention Category (Nature of Intervention): Other Other Interventions: Other Other: To discuss Taltz (new therapy) Prescriber accepted response (Prescriber accept Intervention): Accepted Ama Martin Brandan 10/08/23 2:46 PM documented in this encounter Plan of Treatment Upcoming Encounters Date Type Department Care Team (Late st Contact Info) Description 05/24/2025 11:00 AM EDT Office Visit Radiation Oncology at [address] [phone] Jesse Mcmahan MD [facility] [place] [address] documented as of this encounter Visit Diagnoses Not on filedocumented in this encounter Care Teams Publishing Systems Analyst Relationship Specialty Start Date End Date Melvin Alarcon MD [address] [place] [address] PCP - General Internal Medicine 07/22/23 documented as of this encounter
--- OUTSIDE RECORDS SUMMARY | 2024-08-01 15:25 | XMS_ITS | Encounter Summary ---
Author Organization [facility] [place] [address] Care Team Providers Care Cell Maker Name Role Phone Melvin Alarcon MD Primary Care Provider [phone] Encounter Details Date Type Department Care Team (Late Contact Info) Description 07/12/2024 Interpretation Only Radiology Library at [facility] [place] [phone] Unknown None Social History Tobacco Use Types Packs/Day Years Used Date Smoking Tobacco: Former Cigarettes 1 38 0 08/06/1973 - 08/06/2011 Smokeless Tobacco: Never Alcohol Use Standard Drinks/Week Comments Yes 2 (1 standard drink = 0.6 oz pure alcohol) rarely one glass of wine occasionally, one every other day [facility] Inpatient Questions Answer Date Recorded Does Anyone [...] AM EDT Office Visit Radiation Oncology at [address] [phone] Jesse Mcmahan MD [facility] [place] [address] documented as of this encounter Procedures Procedure Name Priority Date/Time Associated Diagnosis Comments FILM LIBRARY STORAGE ONLY CT ABDOMEN AND PELVIS Routine 07/12/2024 8:55 AM EST documented in this encounter Results * Film Library- Storage Only CT Abdomen & Pelvis (07/12/2024 8:55 AM EST) 07/12/2024 10:2 6 AM EST Narrative [facility] - 07/12/2024 10:26 AM EST This exam is auto-finalizing. It's purpose is for storage only. Unknown IMG FILM LIBRARY ORD ERABLES [place], [place] documented in this encounter Visit Diagnoses Not on filedocumented in this encounter Care Teams Cell Maker Relationship Specialty Start Date End Date Melvin Alarcon MD [address] [place] [address] PCP - General Internal Medicine 07/22/23 documented as of this encounter
--- OUTSIDE RECORDS SUMMARY | 2024-08-01 15:25 | XMS_ITS | Encounter Summary ---
Author Organization [facility] Address [facility] [place] [address] Care Team Providers Care Design Engineer Name Role Phone Melvin Alarcon MD Primary Care Provider [phone] Encounter Details Date Type Department Care Team (Latest Contact Info) Description 02/24/2024 Transcribe Orders eDH Incoming Referrals [phone] Melvin Alarcon MD [address] [place] [address] Screening for AAA (abdominal aortic aneurysm) (Primary Dx) Social History Tobacco Use Types Packs/Day Years [...] AM EDT Office Visit Radiation Oncology at [address] [phone] Jesse Mcmahan MD [facility] [place] [address] documented as of this encounter Visit Diagnoses Diagnosis Screening for AAA (abdominal aortic aneurysm)- Primary Screening for other and unspecified cardiovascular conditions documented in this encounter Care Teams Design Engineer Relationship Specialty Start Date End Date Melvin Alarcon MD [address] [place] [address] PCP - General Internal Medicine 07/22/23 documented as of this encounter
--- OUTSIDE RECORDS SUMMARY | 2024-08-01 15:25 | XMS_ITS | Encounter Summary ---
Author Organization [facility] [place] [address] Care Team Providers Care Medium Cycle Salesperson Name Role Phone Melvin Alarcon MD Primary Care Provider [phone] Encounter Details Date Type Department Care Team (Late Contact Info) Description 03/02/2024 8:30 AM EDT Ancillary Procedure Radiology Library at [place] [address] Unknown None Social History Tobacco Use Types [...] AM EDT Office Visit Radiation Oncology at [address] [phone] Jesse Mcmahan MD [facility] [place] [address] documented as of this encounter Procedures Procedure Name Priority Date/Time Associated Diagnosis Comments FILM LIBRARY STORAGE ONLY CT ABDOMEN Routine 03/02/2024 8:30 AM EDT documented in this encounter Results * Film Library- Storage Only CT Abdomen (03/02/2024 8:30 AM EDT) 03/02/2024 10:2 1 AM EDT Narrative [facility] - 03/02/2024 10:21 AM EDT This exam is auto-finalizing. It's purpose is for storage only. Unknown IMG FILM LIBRARY ORD ERABLES [place], [place] documented in this encounter Visit Diagnoses Not on filedocumented in this encounter Care Teams Medium Cycle Salesperson Relationship Specialty Start Date End Date Melvin Alarcon MD [address] [place] [address] PCP - General Internal Medicine 07/22/23 documented as of this encounter
--- OUTSIDE RECORDS SUMMARY | 2024-08-01 15:25 | XMS_ITS | Encounter Summary ---
[place] [address] Care Team Providers Care Field Associate Name Role Phone Melvin Alarcon MD Primary Care Provider [phone] Reason for Visit * Reason Onset Date Comments Medication Refill 08/28/2023 Encounter Details Date Type Department Care Team (Late Contact Info) Description 08/28/2023 [place] [id number] Trey David RN Psoriasis with arthropathy Social History Tobacco Use Types Packs/Day Years [...] encounter Miscellaneous Notes * Telephone Encounter - Trey David RN - 08/28/2023 10:37 AM EST Images from the original note were not included. Media Information Document Information Other: External Correspondence - non [facility] 08/27/2023 00:00 Attached To: scans only on 08/27/23 with Provider, Scanning Source Information Provider, Scanning documented in this encounter Plan of Treatment Upcoming Encounters Date Type Department Care Team (Late Contact Info) Description 05/24/2025 11:00 AM EDT Office Visit Radiation Oncology at [address] [phone] [facility] [place] [address] documented as of this encounter Visit Diagnoses Diagnosis Psoriasis with arthropathy Psoriatic arthropathy documented in this encounter Care Teams Field Associate Relationship Specialty Start Date End Date Melvin Alarcon MD [address] [place] [address] PCP - General Internal Medicine 07/22/23 documented as of this encounter
--- OUTSIDE RECORDS SUMMARY | 2024-08-01 15:25 | XMS_ITS | Encounter Summary ---
Author Organization [facility] Address [facility] [place] [address] Care Team Providers Care Thermal Engineer Name Role Phone Melvin Alarcon MD Primary Care Provider [phone] Reason for Visit * Consultation (Urgent) - Closed Specialty Diagnoses / Procedures Referred By Contac t Referred To Contact Vascular Surgery Diagnoses Abdominal aortic aneurysm (AAA) without rupture, unspecified part Procedures Triage 02/24 Melvin Alarcon MD [address] [place] [address] [facility] Vascular Surg [address] [place] [address] Referral ID Status Reason Start Date Expiration Date V isits Requested Visits Authorized [id number] Closed Consult, Test & Treat 02/25/2024 02/24/2025 1 1 Encounter Details Date Type Department Care Team (Late st Contact Info) Description 03/11/2024 10:45 AM EDT Office Visit [place] [address] Brandon Gregorio MD [facility] [place] [address] Abdominal aortic aneurysm (AAA) without rupture, unspecified part Social History Tobacco Use Types Packs/Day Years [...] Sign Reading Time Taken Comments Blood Pressure 154/80 03/11/2024 10:27 AM EDT Pulse 73 03/11/2024 10:27 AM EDT Temperature - - Respiratory Rate - - Oxygen Saturation 99% 03/11/2024 10:27 AM EDT Inhaled Oxygen Concentration - - Weight 95.3 kg (210 lb) 03/11/2024 10:27 AM EDT Height 177.8 cm (5' 10) 03/11/2024 10:27 AM EDT Body Mass Index 30.13 03/11/2024 10:27 AM EDT documented in this encounter Progress Notes * Brandon Gregorio MD - 03/11/2024 10:45 AM EDT The patient is status post an endovascular abdominal aortic aneurysm repair with a Ver[place] Excluder graft which was performed in January 2019. Following the procedure the patient is done well. It was performed percutaneously. The patient has return to his usual activities. He has not been seen in clinic since 2019 Current Outpatient Medications: ixekizumab (Taltz Autoinjector) 80 mg/mL Auto-Injector, Inject the contents of 1 pen (80mg) subcutaneously on week 12, then every 4 weeks thereafter. Indications: moderate to severe plaque psoriasis,psoriasis associated with arthritis, L40.50, L40.9, Disp: 1 mL, Rfl: 3 ixekizumab (Taltz Autoinjector, 3 Pack,) 80 mg/mL Auto-Injector, Inject the contents of 2 pens (160mg) subcutaneously on week 0, then inject 1 pen (80mg) subcutaneously every 2 weeks on weeks 2, 4, 6, 8, 10, and 12, then inject 1 pen (80mg) subcutaneously every 28 days thereafter. Indications: moderate to severe plaque psoriasis, psoriasis associated with arthritis, L40.9, L40.50, Disp: 3 mL, Rfl: 0 ixekizumab (Taltz Autoinjector, 2 Pack,) 80 mg/mL Auto-Injector, After first prescription, Inject 1pen (80 mg) subcutaneously on weeks 4, 6, 8, 10 and 12, then move to prescription #3 for maintenance dosing. Indications: moderate to severe plaque psoriasis, psoriasis associated with arthritis, L40.9, L40.50, Disp: 2 mL, Rfl: 1 abatacept (Orencia ClickJect) 125 mg/mL Auto-Injector, Inject 1 mL subcutaneously once a week. Indications: psoriasis associated with arthritis, L40.50, Disp: 4 mL, Rfl: 5 tadalafiL (Cialis) 5 mg tablet, Take 5 mg by mouth., Disp: , Rfl: rosuvastatin (Crestor) 10 mg Tablet, Take 10 mg by mouth daily., Disp: , Rfl: tamsulosin (FLOMAX) 0.4 mg Capsule, Sust. Release 24 hr, Take 0.4 mg by mouth daily., Disp: , Rfl: celecoxib (CELEBREX) 100 mg capsule, Take 100 mg by mouth every other day. prn, Disp: , Rfl: levothyroxine (Synthroid) 150 mcg tablet, Take 150 mcg by mouth daily. Indications: hypothyroidism,Disp: , Rfl: amlodipine-benazepril (LOTREL) 5-10 mg per capsule, Take 1 capsule by mouth daily. , Disp: , Rfl: methylPREDNISolone (MedroL) 4 mg tablet, Take 3 tablets by mouth daily (after breakfast)., Disp: 45tablet, Rfl: 2 betamethasone dipropionate (DIPROLENE) 0.05 % Ointment, Apply topically 2 times daily. Prn, Disp: ,Rfl: Current Facility-Administered Medications: lidocaine (Xylocaine) 4 % (40 mg/mL) solution, , Topical (Top), Q4H PRN, Scarlett Costa MD lidocaine (Xylocaine) 4 % (40 mg/mL) solution, , Topical (Top), Once PRN, Jesse Mcmahan MD lidocaine (Xylocaine) 4 % (40 mg/mL) solution, , Topical (Top), Q4H PRN, Scarlett Costa MD Patient Active Problem List Diagnosis Code Cancer of base of tongue C01 Obesity (BMI 30.0-34.9) E66.9 Hyperlipidemia E78.5 Hypertension I10 Glucose intolerance (impaired glucose tolerance) R73.02 Hypothyroidism E03.9 GERD (gastroesophageal reflux disease) K21.9 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 LIBERTY on CPAP G47.33 Anxiety F41.9 Back pain, chronic M54.9, G89.29 Thalassemia minor Claustrophobia F40.240 Ulnar neuropathy G56.20 DIFFICULT AIRWAY T88.4XXA Dysphagia, unspecified(787.20) R13.10 Congenital nevus Q82.5 AAA (abdominal aortic aneurysm) without rupture I71.40 Benign prostatic hyperplasia with lower urinary tract symptoms N40.1 Depression F32.A There were no vitals taken for this visit. Pt will need angio with attempt at coil embolization of type II leak. I discussed the risks and benefits with the patient for 30 min. He understands and would like to proceed. documented in this encounter Plan of Treatment Upcoming Encounters Date Type Department Care Team (Late st Contact Info) Description 05/24/2025 11:00 AM EDT Office Visit Radiation Oncology at [address] [address] Jesse Mcmahan MD [facility] [place] [address] Scheduled Referrals Name Type Priority Associated Diagnoses Orde r Schedule Referral to Vascular Surgery Outpatient Referral Urgent Abdominal aortic aneurysm (AAA) without rupture, unspecified part Ordered: 02/25/2024 documented as of this encounter Visit Diagnoses Diagnosis Abdominal aortic aneurysm (AAA) without rupture, unspecified part documented in this encounter Care Teams Thermal Engineer Relationship Specialty Start Date End Date Melvin Alarcon MD [address] [place] [address] PCP - General Internal Medicine 07/22/23 documented as of this encounter
--- OUTSIDE RECORDS SUMMARY | 2024-08-01 15:25 | XMS_ITS | Encounter Summary ---
Author Organization [facility] [place] [address] Care Team Providers Care Division Order Analyst Name Role Phone Melvin Alarcon MD Primary Care Provider [phone] Reason for Visit * Reason Comments Specialty Pharmacy Review Ixekizumab (Ta ltz) 80mg/mL Auto-Injector Encounter Details Date Type Department Care Team (Late st Contact Info) Description 10/07/2023 Specialty [place] [address] Xiomara Goodman, [facility] Social History Tobacco Use Types Packs/Day Years [...] as of this encounter Progress Notes * Xiomara Goodman - 10/07/2023 3:18 PM EST [facility] has completed a benefits investigation for Sebastian Wyatt to review their eligibility to fill at [facility]. Per patient's medication list they are prescribed Taltz and the medication is not able to be filled at the [facility]. At this time insurance mandates this medication must be filled through [facility]. documented in this encounter Plan of Treatment Upcoming Encounters Date Type Department Care Team (Late st Contact Info) Description 05/24/2025 11:00 AM EDT Office Visit Radiation Oncology at [address] [phone] [facility] [place] [address] documented as of this encounter Visit Diagnoses Not on filedocumented in this encounter Care Teams Division Order Analyst Relationship Specialty Start Date End Date Melvin Alarcon MD [address] [place] [address] PCP - General Internal Medicine 07/22/23 documented as of this encounter
--- OUTSIDE RECORDS SUMMARY | 2024-08-01 15:25 | XMS_ITS | Encounter Summary ---
Author Organization [facility] [place] [address] Care Team Providers Care Publishing Editor Name Role Phone Melvin Alarcon MD Primary Care Provider [phone] Encounter Details Date Type Department Care Team (Latest Contact Info) Description 07/22/2023 Travel Social History Tobacco Use Types Packs/Day [...] AM EDT Office Visit Radiation Oncology at [address] [phone] Jesse Mcmahan MD [facility] [place] [address] documented as of this encounter Visit Diagnoses Not on filedocumented in this encounter Care Teams Publishing Editor Relationship Specialty Start Date End Date Melvin Alarcon MD [address] [place] [address] PCP - General Internal Medicine 07/22/23 documented as of this encounter
--- OUTSIDE RECORDS SUMMARY | 2024-08-01 15:25 | XMS_ITS | Encounter Summary ---
Author Organization [facility] [place] [address] Care Team Providers Care Batch Analyst Name Role Phone Melvin Alarcon MD Primary Care Provider [phone] Encounter Details Date Type Department Care Team (Latest Contact Info) Description 06/01/2024 Travel Social History Tobacco Use Types Packs/Day [...] AM EDT Office Visit Radiation Oncology at [address] [phone] Jesse Mcmahan MD [facility] [place] [address] documented as of this encounter Visit Diagnoses Not on filedocumented in this encounter Care Teams Batch Analyst Relationship Specialty Start Date End Date Melvin Alarcon MD [address] [place] [address] PCP - General Internal Medicine 07/22/23 documented as of this encounter
--- OUTSIDE RECORDS SUMMARY | 2024-08-01 15:25 | XMS_ITS | Encounter Summary ---
Author Organization [facility] [place] [address] Care Team Providers Care Linker Up Name Role Phone Melvin Alarcon MD Primary Care Provider [phone] Reason for Visit * Reason Comments Follow-up Psoriatic Arthritis Encounter Details Date Type Department Care Team (Latest Contact Info) Description 04/29/2024 12:00 PM EDT TH Visit (TeleHealth) [place] [address] Tanner Frost MD [facility] [place] [address] Psoriasis with arthropathy Social History Tobacco Use [...] on file documented as of this encounter Patient Instructions * Patient Instructions* Tanner Frost MD - 04/29/2024 12:00 PM EDT Continue Toltz for psoriatic arthritis documented in this encounter Progress Notes * Tanner Frost MD - 04/29/2024 12:00 PM EDT Referred here for psoriatic arthritis.Reports bilat ankle pain,continuous flare.Keeps getting worse.unable to tolerate Otezla due to depressive symptoms. Tried MTX,not helping so stopped.Followed by oncology as recovering throat CA.Taking Celebrex with good results I originally saw him as a new patient evaluation at [facility] for evaluation of psoriatic arthritis. He had been referred by his Primary Care Provider Bj Alves for evaluation of possible psoriatic arthritis. He was being treated with Otezla as monotherapy. Articular painhad been treated with Celebrex and methotrexate which proved to be ineffective. Referral was in part to determine if he may be a candidate for a biologic agent. Previously cared for by Dr. Garcia. 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 Reason for referral was uncontrolled psoriatic arthritis on Otezla. This is a telemedicine visit that was performed with the originating site at that patients home address (please see electronic health record for applicable address) and the distant site at my [facility] office. Verbal consent to participate in video visit was obtained by Tanner Frost MD or the rooming animal assistant as documented in their note. I discussed with the patient the nature of our telemedicine visits, that: I would evaluate the patient and recommend diagnostics and treatments based on my assessment Our sessions are not being recorded and that personal health information is protected Our team would provide follow up care in person if/when the patient needs it The concept of ???Telemedicine?? has been described to the patient. Patient has been informed of the anticipated benefitsand possible risks. Patient understands the information provided regarding telemedicine, has had the opportunity to ask questions about this information, and all questions have been answered to patien t's satisfaction. Patient consents for the use of telemedicine in his/her medical care and authorizes the transmission of any relevant medical information to providers and their staff involved in patient's medical or mental health care. 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 He was diagnosed with psoriasis 15 to 20 years ago and for quite some time was type treated effectively with topical therapy alone. Diagnosis was made by his Primary Care Provider. He was evaluated by Dr. Lua in 2012 who confirmed the diagnosis of psoriasis. He was diagnosed with throat cancer 2011. He had radiation therapy and chemotherapy. He finished his last treatment in 2012. He is quite active in practicing [employer]. He attributed joint pains in ankles and feet to his martial art training. Flareups which appeared more inflammatory were attributed to gout. To my knowledge no crystal identification was made. He has had more severe flares in both ankles, heels, great toes and the MTPjoints. Rarely experiences similar inflammatory articular symptoms in his hands. He has noted some right hand proximal interphalangeal joint swelling. He was referred to Dr. Garcia in [place] and was seeing her approximately every 3 months. He was started on methotrexate and was up to 0.4 cc weekly. He was then switched to Otezla. This did okay with his skin yet not so great on his joints. He was treated with combination therapy with Otezla and methotrexate for approximately 6 months. Radiation Oncology recommended stopping methotrexate as the combination was not working. Biologic DMARD treatment was last discussed with Radiation Oncology last May. Current Outpatient Medications Medication amlodipine (NORVASC) 10 mg tablet apremilast (OTEZLA) 30 mg tablet betamethasone dipropionate (DIPROLENE) 0.05 % ointment celecoxib (CELEBREX) 100 mg capsule Fenofibrate 54 mg Tab fluticasone (FLONASE) 50 mcg/Actuation nasal spray Multivitamins with Minerals Tab Allergies include: Patient has no known allergies. 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 Tobacco use 1 pack/day for 38 years quit in August 2011. Developed pain with swallowingApril 2011. 12/09/[address] scan head and neck with contrast. Mixed attenuation mass with low-density areas suggesting necrotic change present deep to anterior aspect left sternocleidomastoid. Mass smoothly marginating maximum 3.3 x 5.2 cm. 11/27/[address] [facility]. Due to severe claustrophobia only performed from the lower chest to mid thighs. No distant metastases identified. 12/12/2011 EUA with triple endoscopy and biopsy. Enrolled on RTOG 1016 randomized to cetuximab arm. Received 70 Gy completed 04/06/2012. Follow-up with Dr. Mcmahan at [facility] 06/08/2019. Addressed the following ongoing symptoms: Dysphagia, rare or done aphasia, stable trismus, moderate dysgeusia and moderate xerostomia, painful neck and shoulder pain left more than right associated with activity, ulnar neuropathy, intermittent tinnitus. 02/21/2021 interval events: He states that he was on combination of Otezla/apremilast and methotrexate up until approximately 5weeks ago. I had recommended adding back methotrexate. He noted that after his subcutaneous injections of the methotrexate he developed flares in his feet and ankles he will great toe and the top of the feet. Would go away couple days after the injection but these joints are always felt painful. He states that he felt better with a combination of Otezla and Celebrex. These joints have been painful in the morning. He is found that Medrol can mitigate the flares. Everything else doing well. He does have some plaques on his elbows. 09-19-2021 Interval events: Stopped apremilast several months ago. Had run out and realized that apremilast was causing psychological issues-emotionality. He has not noticed any worsening of his psoriasis since stopping apremilast On MTX 0.8 mg SC. He finds that the psoriasis is doing fairly well on methotrexate monotherapy. He does note that he has some increasing arthritic symptoms that are moving into his right hand what sounds like the proximal interphalangeal joints. No interval health events. No new medications. 04-09-2022 Interval events: On MTX 1.0 mg SC. He finds that the psoriasis is doing fairly well on methotrexate monotherapy. Remission for the last 7 months. Celecoxib 200 mg QOD No interval health events. No new medications. No recent lab testing. Gets then at [facility]. Most recent labs 09-20-2021. Reviewed at the time of the appointment Problems with the 1 CC syringe. 01-02-2023 Interval events: Stopped MTX about 5 weeks ago. Post injection pain in the ankles and the feet and the knees and in the fingers of his right hand. Also noted swelling. Would last for about 5 days. Taking celecoxib 100 mg daily. Has used Medrol once since stopping MTX. Will use 12-16 mg up to 3 days. Constant pain in the ankles and in the knees. 10-02-2023 Interval events: Flare ups and plaque psoriasis. Taking prednisone every 3 weeks ago. MTX worked better than Humira. Better than Orencia. Depressive sxs on Otezla Achilles tendon pain bilateral. No interval health changes. 04-29-2024 Interval events: He is on Taltz and can tell the difference. Only one flare-up. Had to take prednisone for one day. Less AM stiffness. Skin is doing well. Very happy with his therapeutic response. Has a Type II aneurysmal leak after repair. He is considering his options. Coil embolization has been recommended. May need to go to open repair. He would like to avoid radiation exposure due to the amount that he has received so far No new medications. Has follow-up with Dr. Gregorio Review of Systems: Constitutional: No fevers. Good energy no night sweats. Weight is stable. HEENT: No previously diagnosed inflammatory eye condition. He does have eye dryness. No vision loss. No hearing loss. He does have tinnitus. He has dry mouth. Recent oral examination without evidenceof disease recurrence. He has had issues with dental extractions and gum recession and post radiation changes. Cardiovascular: No chest pain or palpitations. Pulmonary: No dyspnea cough or wheezing. Gastrointestinal: Occasional dysgeusia. Occasional dysphagia. Some difficulty with chunkier foods. He does have gastroesophageal reflux. No nausea or vomiting. No abdominal pain or cramping. No bloodin the stools. No diarrhea or constipation. Dermatologic: He has psoriasis. He has been treated with topical therapy and with Otezla and methotrexate. He has previously been evaluated by Dr. Lua. He does have fingernail changes. Vascular: No vasomotor changes in the distal upper or lower extremities in response to cold weather. No history of blood clots. No easy bruising. Musculoskeletal joint pain as in HPI. He does have myalgias as well. Morning stiffness can last throughout the day. No muscle weakness. Has had history of back pain. Having some increased inflammation in the PIPs of the right hand Neurologic: He does have trismus. No difficulty with cognition. 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 Genitourinary: No dysuria or hematuria. He has been diagnosed with BPH. Psychiatric: Denies anxiety or depression. He has insomnia. Quit smoking. 1 alcoholic beverage per week. No illicit or recreational drug use. Activities of daily living: He reports that he sometimes has difficulty walking, ascending or descending stairs, getting up from a chair. Family history: Mother age 90 has been diagnosed with psoriasis and spondylitis. Father 87. One sister. No rheumatologic issues. Social history: He is . He has a daughter who has psoriasis and is being treated with topical therapy. He lives in [place] with his who is a PA at the [employer]. 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 Hobbies and interests: Archery-traditional, competitive/shooting. Hiking. Likes to workout. Exercise: Very active. No recent travel. Toxic exposures: Radiation therapy and chemotherapy and prior tobacco use. No new medications. No known arthropod contact ECM rash. Physical Examination: No vital signs due to the telemedicine nature of this appointment. General: Alert. Oriented. No distress. Appropriate speech thought and content. Pleasant and interactive. Labs: 11/08/2019: TSH 15.30, previously 23.20 August 29, 2019 06/14/2019 WBC 7.4 hemoglobin 13.2 platelet count 260. MCV 66.3, MCH 20.3. Comprehensive metabolic profile creatinine 1.0. BUN 19. Calcium 9.9. Sodium 140. Potassium 4.0. Chloride 102. CO2 28.0. Total protein 7.4. Albumin 4.1. Total bilirubin 0.3 alkaline phosphatase 98 ALT 25 AST 35. 01/19/2019 prealbumin 25 normal 01/17/2019 hemoglobin A1c 5.5. 09/06/2018 ESR 6. Uric acid 8.9. CRP 0.61. Diagnostic imaging: Labs: Lab Requisition on 03/23/2020 Component Date Value COVID-19 Result 03/23/2020 NEGATIVE Performing Lab 03/23/2020 [facility] COVID-19 Result 03/23/2020 NEGATIVE Lab Requisition on 01/25/2020 Component Date Value COVID-19 Result 01/25/2020 NEGATIVE Performing Lab 01/25/2020 [facility] COVID-19 Result 01/25/2020 NEGATIVE Diagnosis / Assessment: 1. Psoriasis with arthropathy ([facility]) Psoriatic arthritis. He had been started on Orencia subcutaneously administered weekly yet this did not have a therapeutic response. He had recurrence of plaque psoriasis and i was having episodes of peripheral enthesial inflammation. He needed to use corticosteroid therapy up to every 3 weeks for control of symptoms.. He also uses Celebrex on occasion. He has been on 1 TNF alpha inhibitor which did not work at all. He had depressive symptoms with Otezla.He had a paradoxical increase in pain with methotrexate injections at 25 mg weekly. He interestingly had in addition to no clinical response on peripheral articular symptoms a paradoxical increase inpain after the Orencia injections. We discussed other potential options for peripheral psoriatic arthritis. Bio DMARD labs have been done and reviewed. He has been started on and continues to tolerate Taltz. No change in therapeutic plan. 32 minutes total spent on this visit including precharting, review of laboratory, imaging data, consulting other providers, telephone communication and documentation. documented in this encounter Plan of Treatment Upcoming Encounters Date Type Department Care Team (Late st Contact Info) Description 05/24/2025 11:00 AM EDT Office Visit Radiation Oncology at [address] [address] Jesse Mcmahan MD [facility] [place] [address] documented as of this encounter Visit Diagnoses Diagnosis Psoriasis with arthropathy Psoriatic arthropathy documented in this encounter Care Teams Linker Up Relationship Specialty Start Date End Date Melvin Alarcon MD [address] [place] [address] PCP - General Internal Medicine 07/22/23 documented as of this encounter
--- OUTSIDE RECORDS SUMMARY | 2024-08-01 15:25 | XMS_ITS | Encounter Summary ---
Author Organization [place] [address] Care Team Providers Care Commercial Credit Lead Name Role Phone Melvin Alarcon MD Primary Care Provider [phone] Encounter Details Date Type Department Care Team (Latest Contact Info) Description 03/10/2024 Travel Social History Tobacco Use Types Packs/Day [...] EDT Office Visit Radiation Oncology at [address] [address] Jesse Mcmahan MD [facility] DR RADIATION [place] [address] documented as of this encounter Visit Diagnoses Not on filedocumented in this encounter Care Teams Commercial Credit Lead Relationship Specialty Start Date End Date Melvin Alarcon MD [address] [place] [address] PCP - General Internal Medicine 07/22/23 documented as of this encounter
--- OUTSIDE RECORDS SUMMARY | 2024-08-01 15:25 | XMS_ITS | Encounter Summary ---
Author Organization [facility] [place] [address] Care Team Providers Care Manager Materials Management Name Role Phone Unknown Primary Care Provider Unavailabl e Reason for Visit * Reason Onset Date Comments Other 07/16/2023 Encounter Details Date Type Department Care Team (Late st Contact Info) Description 07/16/2023 Telephone [place] [phone] Bree Mantilla RN Other Social History Tobacco Use Types Packs/Day Years [...] encounter Miscellaneous Notes * Telephone Encounter - Bree Mantilla RN - 07/16/2023 2:01 PM EST Copied from [facility] #[id number]. Topic: Specialty Dept CRMs - Generic Call >> Jul 16, 2023 1:55 PM Martir Felder wrote: Specialist: Tanner Frost MD Relationship (if other than patient-full name): Sebastian Wyatt, self Reason for Call: Patient called to give an update regarding abatacept (Orencia ClickJect) 125 mg/mLAuto-Injector. He reports he was been taking for 2 months and has seen zero benefits. Please contact patient with any questions. documented in this encounter Plan of Treatment Upcoming Encounters Date Type Department Care Team (Late st Contact Info) Description 05/24/2025 11:00 AM EDT Office Visit Radiation Oncology at [address] [address] Jesse Mcmahan MD [facility] [place] [address] documented as of this encounter Visit Diagnoses Not on filedocumented in this encounter Care Teams Manager Materials Management Relationship Specialty Start Date End Date Unknown None PCP - General 04/03/23 07/21/23 documented as of this encounter
--- OUTSIDE RECORDS SUMMARY | 2024-08-01 15:25 | XMS_ITS | Encounter Summary ---
Author Organization [facility] [place] [address] Care Team Providers Care Marina Dry Dock Manager Name Role Phone Melvin Alarcon MD Primary Care Provider [phone] Encounter Details Date Type Department Care Team (Latest Contact Info) Description 10/02/2023 12:00 PM EST TH Visit (TeleHealth) [place] [address] Tanner Frost MD [facility] [place] [address] Psoriasis with arthropathy Social History Tobacco Use [...] * Patient Instructions* Tanner Frost MD - 10/02/2023 12:00 PM EST Stop Orencia. Start leflunomide 10 mg daily for 2 weeks and then increase to 20 mg daily. Laboratory tests with CBC and comprehensive metabolic panel 4 weeks after starting leflunomide documented in this encounter Progress Notes * Tanner Frost MD - 10/02/2023 12:00 PM EST Referred here for psoriatic arthritis.Reports bilat ankle pain,continuous flare.Keeps getting worse.Takes Otezla.Tried MTX,not helping so stopped.Followed by onco as recovering throat CA.Taking Celebrex with good results I originally saw him as a new patient evaluation at [facility] for evaluation of psoriatic arthritis. He had [...] address) and the distant site at my [facility] office. Verbal consent to participate in video visit was obtained by Tanner Frost MD or the rooming pathologist assistant as documented in their note. I [...] 2012. He is quite active in practicing [employer]. He attributed joint pains in ankles and [...] He was referred to Dr. Garcia in [place] and was seeing her approximately every 3 [...] allergies. Past Medical History: Diagnosis Date Cancer ([facility] 2012 Throat tx with chemo and radiation [...] 3.3 x 5.2 cm. 11/27/[address] [facility]. Due to severe claustrophobia only performed from the lower chest to mid thighs. No distant metastases identified. 12/12/2011 EUA with triple endoscopy and biopsy. Enrolled on RTOG 1016 randomized to cetuximab arm. Received 70 Gy completed 04/06/2012. Follow-up with Dr. Mcmahan at [facility] 06/08/2019. Addressed the following ongoing symptoms: Dysphagia, [...] No recent lab testing. Gets then at [facility]. Most recent labs 09-20-2021. Reviewed at the [...] tendon pain bilateral. No interval health changes. Review of Systems: Constitutional: No fevers. Good [...] treated with topical therapy. He lives in [place] with his who is a PA at the [employer]. 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 Hobbies and interests: Archery-traditional, competitive/shooting. Hiking. [...] Result 03/23/2020 NEGATIVE Performing Lab 03/23/2020 [facility] COVID-19 Result 03/23/2020 NEGATIVE Lab Requisition on 01/25/2020 Component Date Value COVID-19 Result 01/25/2020 NEGATIVE Performing Lab 01/25/2020 [facility] COVID-19 Result 01/25/2020 NEGATIVE Diagnosis / Assessment: 1. Psoriasis with arthropathy ([facility]) Psoriatic arthritis. He had been started on Orencia subcutaneously administered weekly yet this did not have a therapeutic response. He is having recurrence ofplaque psoriasis and is having episodes of peripheral enthesial inflammation. He is needing to use c orticosteroid therapy up to every 3 weeks. He also uses Celebrex on occasion. He has been on 1 TNF alpha inhibitor which did not work at all. He had depressive symptoms with Otezla. He had a paradoxical increase in pain with methotrexate injections at 25 mg weekly. He interestingly had in addition to no clinical response on peripheral articular symptoms a paradoxical increase in pain after the Orencia injections. We discussed other potential options for peripheral psoriatic arthritis. I would like to switch him to secukinumab self injections. I will be in contact with specialty pharmacy aboutthis. Bio DMARD labs have been done and reviewed. 41 minutes total spent on this visit including precharting, review of laboratory, imaging data, consulting other providers, telephone communication and documentation. documented in this encounter Plan of Treatment Upcoming Encounters Date Type Department Care Team ([facility] st Contact Info) Description 05/24/2025 11:00 AM EDT Office Visit Radiation Oncology at [address] [phone] Jesse Mcmahan MD [facility] [place] [address] Scheduled Orders Name Type Priority Associated Diagnoses Orde r Schedule CBC (with Diff) Lab Routine Psoriasis with arthropathy Every 3 months for 4 Occurrences starting 10/02/2023 until 10/01/2024 Comprehensive metabolic panel (non-fasting) Lab Routine Psoriasis with arthropathy Every 12 Weeks for 4 Occurrences starting 10/02/2023 until 10/01/2024 documented as of this encounter Visit Diagnoses Diagnosis Psoriasis with arthropathy Psoriatic arthropathy documented in this encounter Care Teams Marina Dry Dock Manager Relationship Specialty Start Date End Date Melvin Alarcon MD [address] [place] [address] PCP - General Internal Medicine 07/22/23 documented as of this encounter
--- OUTSIDE RECORDS SUMMARY | 2024-08-01 15:25 | XMS_ITS | Encounter Summary ---
Author Organization Formerly [facility] [place] [address] Care Team Providers Care Information Technology Data Analyst Name Role Phone Melvin Alarcon MD Primary Care Provider [phone] Encounter Details Date Type Department Care Team (Late st Contact Info) Description 04/12/2024 Telephone [place] [id number] Xavier Rizzo Social History Tobacco Use Types Packs/Day Years [...] encounter Miscellaneous Notes * Telephone Encounter - Shruthi Limon - 04/12/2024 9:22 AM EDT Patient called this morning stating had not received return call from yesterday. Looking to set up phone call with Dr. Gregorio on questions he has regarding upcoming surgery. Patient has been scheduled twice but has not received phone call on schedule day. Patient states has reached out to Patient Relations. Email sent to Dr. Gregorio, Jenni Espinosa and Khloe Tierney to see if can schedule phone call for April 15 at 9:15 a.m. documented in this encounter Plan of Treatment Upcoming Encounters Date Type Department Care Team (Late st Contact Info) Description 05/24/2025 11:00 AM EDT Office Visit Radiation Oncology at [address] [address] Jesse Mcmahan MD [facility] [place] [address] documented as of this encounter Visit Diagnoses Not on filedocumented in this encounter Care Teams Information Technology Data Analyst Relationship Specialty Start Date End Date Melvin Alarcon MD [address] [place] [address] PCP - General Internal Medicine 07/22/23 documented as of this encounter
--- OUTSIDE RECORDS SUMMARY | 2024-08-01 15:25 | XMS_ITS | Encounter Summary ---
Author Organization [facility] [place] [address] Care Team Providers Care Reiki Practitioner Name Role Phone Melvin Alarcon MD Primary Care Provider [phone] Encounter Details Date Type Department Care Team (Late Contact Info) Description 02/24/2024 8:30 AM EDT Ancillary Procedure Radiology Library at [place] [address] Unknown None Social History Tobacco Use Types [...] EDT Office Visit Radiation Oncology at [address] [phone] Jesse Mcmahan MD [facility] [place] [address] documented as of this encounter Procedures Procedure Name Priority Date/Time Associated Diagnosis Comments FILM LIBRARY STORAGE ONLY ULTRASOUND STUDY Routine 02/24/2024 8:30 AM EDT documented in this encounter Results * Film Library- Storage Only Ultrasound Study (02/24/2024 8:30 AM EDT) 02/25/2024 6:03 AM EDT Narrative RAD - 02/25/2024 6:03 AM EDT This exam is auto-finalizing. It's purpose is for storage only. Unknown IMG FILM LIBRARY ORD ERABLES [place], [place] documented in this encounter Visit Diagnoses Not on filedocumented in this encounter Care Teams Reiki Practitioner Relationship Specialty Start Date End Date Melvin Alarcon MD [address] [place] [address] PCP - General Internal Medicine 07/22/23 documented as of this encounter
--- OUTSIDE RECORDS SUMMARY | 2024-08-01 15:25 | XMS_ITS | Encounter Summary ---
[place] [address] Care Team Providers Care Air Grinder Name Role Phone Melvin Alarcon MD Primary Care Provider [phone] Reason for Visit * Reason Comments Prior Authorization Taltz 80mg/ml SOAJ Encounter Details Date Type Department Care Team (Late st Contact Info) Description 01/07/2024 Specialty [place] [phone] Yasmin Pedroza, JABIER Social History Tobacco Use Types Packs/Day Years Used Date Smoking Tobacco: Former Cigarettes 1 38 0 08/06/1973 - 08/06/2011 Smokeless Tobacco: Never Alcohol Use Standard Drinks/Week Comments Yes 1 (1 standard drink = 0.6 oz pure alcohol) rarely one glass of wine occasionally [facility] Inpatient Questions Answer Date Recorded Does [...] this encounter Progress Notes * Yasmin Myers CPHT - 01/07/2024 1:59 PM EDT [facility], Medication Prior Authorization Submission Patient: Sebastian Wyatt Patient : [id number] Patient Address: [address] [address] (home) Medication Name: TALTZ AUTOINJECTOR 80 MG/ML SUBCUTANEOUS Medication ID: Subscriber Insurance: [employer] ([facility]) Subscriber Insurance Comment: Phone: [phone] Fax: Physician: KALLIE GIL Physician Comment: Sent Via: [facility] Linares: Linares: [id number] Ref/Case/PA#: Medication Strength Frequency Requested: Inject the contents of two pens subcutaneously every 28 days Qty/Day Supply: 09/30 New Start: Renewal Diagnosis & ICD-10 Code: Psoriatic Arthritis L40.50 Patient Notified: Yes Submission Notes: - Reauthorization Yasmin Myers CPHT 01/07/24 2:03 PM * Yasmin Myers CPHT - 01/07/2024 1:59 PM EDT [facility], Prior Authorization Approval Medication Name: TALTZ AUTOINJECTOR 80 MG/ML SUBCUTANEOUS Medication ID: Approval Dates: 12/08/2023 to 07/05/2024 Insurance requirements/notes: - Patient fills with [facility] Other Notes: None Case/Reference #: [id number] Approval notification Received via: [facility] Copay: Unknown - must fill with outside pharmacy Copay assistance: None Copay Notes: NA Insurance mandated Pharmacy: [facility] Fillable at [facility]: Yes Patient Notified: Left Voicemessage Pharmacy staff will be reaching out to the patient to inform them of their medication's approval bytheir insurance. If applicable, a pharmacist will speak with the patient to offer our specialty pharmacy services and to arrange delivery of their medication. Yasmin Myers CPHT 01/08/24 8:53 AM documented in this encounter Plan of Treatment Upcoming Encounters Date Type Department Care Team (Late st Contact Info) Description 05/24/2025 11:00 AM EDT Office Visit Radiation Oncology at [address] [phone] Jesse Mcmahan MD [facility] [place] [address] documented as of this encounter Visit Diagnoses Not on filedocumented in this encounter Care Teams Air Grinder Relationship Specialty Start Date End Date Melvin Alarcon MD [address] [place] [address] PCP - General Internal Medicine 07/22/23 documented as of this encounter
--- OUTSIDE RECORDS SUMMARY | 2024-08-01 15:25 | XMS_ITS | Encounter Summary ---
Author Organization [facility] [place] [address] Care Team Providers Care Meter Attendant Name Role Phone Melvin Alarcon MD Primary Care Provider [phone] Reason for Visit * Auth/Cert (Routine) Specialty Diagnoses / Procedures Referred By Contstephanie t Referred To Contact Diagnoses Status post endovascular aneurysm repair (EVAR) Abdominal aortic aneurysm (AAA) without rupture, unspecified part Endo leak Procedures PRO VASCULAR EMBOLIZATION OR OCCLUSION ARTERIAL RAD S&I VASCULAR EMBOLIZATION/OCCLUSION,ARTER Y,OTHER THAN HEMORRHAGE[employer] INC. S&I (WRVU 9.8) Brandon Rojo MD [facility] [place] [address] [facility] Referral ID Status Reason Start Date Expiration Date Visits Re quested Visits Authorized [id number] 1 1 Encounter Details Date Type Department Care Team (Late st Contact Info) Description 06/07/2024 7:30 AM EST - 06/07/2024 11:43 AM EST Surgery [place] [address] Brandon Rojo MD [facility] [place] [address] VASCULAR EMBOLIZATION/OCCLUSION ,ARTERY,OTHER THAN HEMORRHAGE, INC. S&I (WRVU 9.8) Social History Tobacco Use Types Packs/Day Years [...] Sign Reading Time Taken Comments Blood Pressure 185/104 06/07/2024 6:09 AM EST Pulse 76 06/07/2024 6:09 AM EST Temperature 36.4 ??C (97.5 ??F) 06/07/2024 6:09 AM ES T Respiratory Rate 18 06/07/2024 6:09 AM EST Oxygen Saturation 99% 06/07/2024 6:09 AM EST Inhaled Oxygen Concentration - - Weight 95.2 kg (209 lb 14.4 oz) 06/07/2024 6:09 AM EST Height 177.8 cm (5' 10) 06/07/2024 6:09 AM EST Body Mass Index 30.12 06/07/2024 6:09 AM EST documented in this encounter Discharge Instructions * Patient Instructions* Amari Reilly MD - 06/07/2024 12:49 PM EST You underwent aortogram, bilateral hypogastric and SMA angiogram, and coil embolization of a lumbarartery in your via bilateral groin access. This procedure was uncomplicated and you recovered well. Wound: You may remove your dressings tomorrow Shower/Bath: OK to shower, wash with soap and water, and pat dry; avoid bathing or swimming for 1 week until incisions well healed Diet: resume regular diet Activity: As tolerated, OK to walk. No heavy lifting >10 lbs or deep bending for 1 week Driving: none while on narcotic pain meds; may resume when leg feeling well. Meds: continue your prior medications including aspirin and pletal We will see you in clinic in [address] Rojo with a CT angiogram of your abdomen and pelvisto evaluate your endo-graft; an appointment will be mailed to you but if you do not receive it, or have other questions please call [phone] as your followup is very important to us. documented in this encounter Medications at Time of Discharge Medication Sig Dispensed Refills Start Date End Date ixekizumab (Taltz Autoinjector, 3 Pack,) 80 mg/mL Auto-InjectorIndicatio ns:moderate to severe plaque psoriasis,psoriatic arthritis,L40.9, L40.50 Inject the contents of 2 pens (160mg) subcutaneously on week 0, then inject 1 pen (80mg) subcutaneously every 2 weeks on weeks 2, 4, 6, 8, 10, and 12, then inject 1 pen (80mg) subcutaneously every 28 days thereafter. Indications: moderate to severe plaque psoriasis, psoriasis associated with arthritis, L40.9, L40.50 3 mL 10/07/2023 ixekizumab (Taltz Autoinjector, 2 Pack,) 80 mg/mL Auto-InjectorIndicatio ns:moderate to severe plaque psoriasis,psoriatic arthritis,L40.9, L40.50 After first prescription, Inject 1 pen (80 mg) subcutaneously on weeks 4, 6, 8, 10 and 12, then move to prescription #3 for maintenance dosing. Indications: moderate to severe plaque psoriasis, psoriasis associated with arthritis, L40.9, L40.50 2 mL 1 10/07/2023 tadalafiL (Cialis) 5 mg tablet Take 5 mg by mouth. Twice a week 03/28/2022 rosuvastatin (Crestor) 10 mg Tablet Take 10 mg by mouth daily. tamsulosin (FLOMAX) 0.4 mg Capsule, Sust. Release 24 hr Take 0.4 mg by mouth daily. betamethasone dipropionate (DIPROLENE) 0.05 % Ointment Apply topically 2 times daily. Prn celecoxib (CELEBREX) 100 mg capsule Take 100 mg by mouth every other day. prn levothyroxine (Synthroid) 150 mcg tabletIndications:hypo thyroidism Take 150 mcg by mouth daily. Indications: hypothyroidism amlodipine-benazepril (LOTREL) 5-10 mg per capsule Take 1 capsule by mouth daily. ixekizumab (Taltz Autoinjector) 80 mg/mL Auto-InjectorIndicatio ns:moderate to severe plaque psoriasis,psoriatic arthritis,L40.50, L40.9 Inject the contents of 1 pen (80mg) subcutaneously on week 12, then every 4 weeks thereafter. Indications: moderate to severe plaque psoriasis, psoriasis associated with arthritis, L40.50, L40.9 1 mL 3 03/10/2024 07/20/2024 documented as of this encounter Progress Notes * Xavier Garcia RN - 06/07/2024 3:41 PM EST Sebastian was alert and oriented, vital signs stable. He was able to drink prior to discharge without signs of nausea. He was also able to void 680 ml prior to discharge. Reviewed discharge instructions; Sebastian and his Laura, both, verbalized understanding. Copy of instruction sheet with contact numbers for questions/concerns with them both. Pain assessment documented 0/10. Sebastian was escorted out of department via wheelchair with RN. documented in this encounter H&P Notes * Erich Pinzon MD - 06/07/2024 7:12 AM EST H&P 24hr interval update/Pre-operative note Please see Dr. Rojo's note from clinic on 03/11/24 for further information. ID: Sebastian Wyatt is a 69 y.o. male with a hx of infrarenal AAA s/p EVAR ( [place] excluder, 2019). He was been lost to follow up until recently. Surviellence CTA demonstrated interval growth of aneurysm sac from 5.4 cm to 6.8 cm. [place] [facility] [place] and attempted coil embolization of his type II endoleak S: Sebastian Wyatt endorses no recent change in health. Denies any fever, chills, cough, congestion, change in bowel habits. Prior to arrival today, Sebastian Wyatt was in a normal state of health. Past Medical History: Diagnosis Date Acid reflux Arthritis Injury of left knee 2014 fall at work Psoriasis Psoriatic arthritis Thyroid dysfunction Past Surgical History: Procedure Laterality Date CARPAL TUNNEL RELEASE rt PET SCAN (SCAN) 01/16/2012 PET SCAN performed by RESOURCE, ANESTHESIA-IRIS at [facility] PET SCAN (SCAN) 07/06/2012 PET SCAN performed by Anesthesia-Iris Resource at [facility] IRIS PRO ENDOVASC REPAIR DEPLOYMENT [id number] ENDOGRAFT N/A 01/28/2019 @EVG, AORTA/ILIAC ART RPR [id number] ENDOGRAFT; ANEURX performed by Brandon Rojo MD at [facility] MAIN OR PRO LARYNGOSCOPY, DIRCT, OP SCOP, EXC TUMR 12/12/2011 LARYNGOSCOPY, DIRECT, EXCISION OF TUMOR, CORD STRIPPING, MICRO performed by BECKY GANN at [facility] MAIN OR PRO LARYNGOSCOPY, DIRCT, OP SCOPE, BIOPSY 12/12/2011 LARYNGOSCOPY, MICROSCOPE, WITH BIOPSY performed by BECKY GANN at [facility] MAIN OR PRO PERQ ACCESS & CLOSURE FEM ART FOR DELIVERY NDGFT Bilateral 01/28/2019 PERC ACCESS & CLOSURE OF FEMORAL ARTER FOR DELIVERY OF ENDOGRAFT THROUGH LARGE SHEATH performedby Brandon Rojo MD at [facility] MAIN OR Social History Socioeconomic History Marital status: Spouse name: Not on file Number of children: Not on file Years of education: Not on file Highest education level: Not on file Occupational History Not on file Tobacco Use Smoking status: Former Current packs/day: 0.00 Average packs/day: 1 pack/day for 38.0 years (38.0 ttl pk-yrs) Types: Cigarettes Start date: 08/06/1973 Quit date: 08/06/2011 Years since quittin.8 Smokeless tobacco: Never Vaping Use Vaping status: Never Used Substance and Sexual Activity Alcohol use: Yes Alcohol/week: 2.0 standard drinks of alcohol Types: 1 Glasses of wine, 1 Cans of beer per week Comment: rarely one glass of wine occasionally, one every other day Drug use: Not Currently Sexual activity: Not on file Other Topics Concern Not on file Social History Narrative 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 Lives near [facility] with , 13yo daughter, 2 horses, 2 dogs. Social Determinants of Health Financial Resource Strain: Not on file Food Insecurity: Not on file Transportation Needs: Not on file Physical Activity: Not on file Intimate Partner Violence: Patient Unable To Answer (06/07/2024) [facility] Inpatient Questions Prevent Contact with Others: unable to answer (comment required) Feels Threatened by Someone: unable to answer (comment required) Feels Unsafe at Home: unable to answer (comment required) Physical Signs of Abuse Present: Not on file Housing Stability: Not on file Family History Problem Relation Age of Onset Heart Failure Mother Diabetes Mother Thyroid Disease Mother hypothyroidism Heart Failure Father Diabetes Father Abdominal Aortic Aneurysm Maternal Grandfather Diabetes Other Thyroid Disease Sister hypothyroidism Abdominal Aortic Aneurysm Maternal Uncle ROS: otherwise negative O: Physical Exam: Patient Vitals for the past 24 hrs: Temp Pulse Resp BP SpO2 O2 Device 06/07/24 0609 36.4 ??C (97.5 ??F) 76 18 (!) 185/104 99 % RA Gen: NAD, AOx3 HEENT: NC/AT CVS: RRR Pulm: Comfortable on RA Abd: soft, nt/nd Ext: WWP, palpable femoral pulses bilaterally A/P: Sebastian Wyatt is a 69 y.o. male who presents for planned procedure as above. Will proceedwith planned operation. Erich Pinzon MD 06/07/2024 Vascular Surgery p. [phone] documented in this encounter Miscellaneous Notes * Op Note - Erich Pinzon MD - 06/07/2024 8:42 AM EST [facility] [place] Patient Name: Sebastian Wyatt : [id number] MR#: [id number] Case Date: 06/07/2024 Surgeon: Surgeons and Role: * Brandon Rojo MD - Primary * Erich Pinzon MD - Resident - Assisting Preoperative diagnosis: Endo leak Postoperative diagnosis: Endo leak PROCEDURES: Bilateral percutaneous ultrasound and fluoroscopic femoral artery access Diagnostic aortogram Selective SMA angiogram Left and right hypogastric arteriogram Coil embolization of right hypogastric arterial branches Completion right hypogastric arteriogram Mynx closure Findings: Bilateral percutaneous 5 Fr sheath access in bilateral groins. Aortogram demonstrated no concern for Type I or Type III endoleak. Selective SMA arteriogram demonstrated no delayed sac filling concerning for SMA-CHAU retrograde filling Left hypogastric artery selected with no evidence of lumbar collaterals filling sac Right hypogastric artery selected with evidence of type II endoleak for lumbar collateral to right hypogastric. Coil embolization of distal right hypogastric arterial branches [employer] Embold coils 2x6 cm, 3mmx12 cm( x2), 3mm x16 cm (x2), [id number] (x2), 5 mx15 cm(x3), 5mmx8 cm. Completion right hypogastric angiogram without evidence of further type II endoleak Mynx closure, 15 minutes of pressure held on either groin. Anesthesia: General Estimated Blood Loss: 21 mL Heparin: none Protamine: none Fluoro time: 78 m mGy: 1103 Dye: 114 mL Specimens removed during surgery: None Drains: none Surgical Closure: Primary Closure - skin incision is completely closed without any wires, tova, drains or other devices Disposition: awakened from anesthesia, extubated and taken to the recovery room in a stable condition, having suffered no apparent untoward event. Condition: doing well without problems (Please see the Surgical Encounter Summary for any Implant and Specimen details pertinent to this patient.) HPI/Surgical Indications: Sebastian Wyatt is a 69 y.o. male with a hx of infrarenal AAA s/p EVAR ( [place] excluder, 2019). He was been lost to follow up until recently. Surviellence CTA demonstrated interval growth of aneurysm sac from 5.4 cm to 6.8 cm. He [place] [facility] [place] and attempted coil embolization of his type II endoleak Procedure Description: After informed consent was obtained, the patient was brought to the operating room, and placed on the operating room table in the supine position. General endotracheal anesthesia was induced. The patient's bilateral groins were prepped and draped in the usual sterile fashion. A timeout was performed. We began the operation by making percutaneous arterial access the bilateral femoral arteries using both ultrasound and fluoroscopic guidance via a micropuncture technique. These were then upsized to 5 [place] sheaths. A floppy glide catheter was advanced up to the level of the descending aorta over which a SOS catheter was advanced and reformed. Diagnostic aortogram demonstrated no evidence of a type I or type III endoleak. The sauce catheter was then attempted to cannulate the SMA, however thiswas unsuccessful. We were however able to cannulate the SMA using a Rinaldi catheter. Diagnostic SMA angiography demonstrated no delayed filling of the aneurysm sac consistent with SMA to CHAU perfusion. Next, the left hypogastric artery was then selected with a rim catheter over which a lio wire and 014 renegade catheter were advanced. Diagnostic left hypogastric angiogram demonstrated a robust collateral to a lumbar artery, however there was no evidence of blush consistent with a type II endoleak from this location. Next, we advanced a rim catheter over a floppy Glidewire up the right iliofemoral system, selectingthe right hypogastric artery. In a similar fashion, a lio and renegade catheter Were used to selectively cannulate the distal right hypogastric artery. Diagnostic right hypogastric arteriogram did not demonstrate a robust collateral to the lumbar artery which was indeed filling into the aneurysm sac, consistent with a type II endoleak. Next, using multiple [employer] and bold coils as designated above, the inflow branches supplying the lumbar artery were coil embolized back to the distal right hypogastric artery. A completion angiogram demonstrated no further filling or evidence of type II endoleak. Satisfied with the result, the wires and catheters were then removed and the 5 [place] sheaths were removed with the assistance of a Mynx closure devices. Pressure was held for over 20 minutes with excellent hemostasis and distal pulses intact. Dermabond glue and dry dressings were placed over the puncture wounds. At the end of the case, all needle, sponge, and instrument counts were correct. The patient was awakened from general anesthesia and taken to the postanesthesia care unit in good condition. Dr. Rojo was present for the entirety of the operation. Surgical Infection Prevention Bundle Used? N/A Erich Pinzon MD Associated attestation - Brandon Rojo MD - 06/27/2024 8:47 PM EST Attestation: Case Date: 06/07/2024 I was present and I participated during the entire procedure (does not need to include opening and closing). BRANDON ROJO MD 06/27/2024 documented in this encounter Plan of Treatment Upcoming Encounters Date Type Department Care Team (Late st Contact Info) Description 05/24/2025 11:00 AM EDT Office Visit Radiation Oncology at [address] [phone] Jesse Mcmahan MD [facility] [place] [address] Scheduled Orders Name Type Priority Associated Diagnoses Orde r Schedule CT Angiogram Abdomen & Pelvis w Contrast (Generic) Imaging Routine Abdominal aortic aneurysm (AAA) without rupture, unspecified part Expected: 07/07/2024, Expires: 08/07/2024 documented as of this encounter Procedures Procedure Name Priority Date/Time Associated Diagnosis Comments BLOOD GAS ARTERIAL POC Routine 06/07/2024 12:18 PM EST BLOOD GAS ARTERIAL POC Routine 06/07/2024 12:11 PM EST BLOOD GAS ARTERIAL POC Routine 06/07/2024 8:48 AM EST Vascular Embolization Or Occlusion Arterial Rad S&I([id number]) 06/07/2024 7:37 AM EST Status post endovascular [...] IMPLANTABLE DEVICES SCAN 06/07/2024 12:00 AM EST documented in this encounter Results * (ABNORMAL) Blood Gas, Arterial POC (06/07/2024 12:18 PM EST) pH, Arterial 7.40 7.35 - 7.45 06/07/2024 12:19 PM [facility] PH Corrected, Arterial 7.41 7.35 - 7.45 06/07/2024 12:19 PM [facility] PCO2, Arterial 38 35 - 45 mmHg 06/07/2024 12:19 PM [facility] PCO2 Corrected, Arterial 38 35 - 45 mmHg 06/07/2024 12:19 PM [facility] PO2, Arterial 150(H) 85 - 104 mmHg 06/07/2024 12:19 PM [facility] PO2 Corrected, Arterial 148.5(H) 85 - 104 mmHg 06/07/2024 12:19 PM [facility] Bicarbonate, Arterial 23.2 20.0 - 26.0 mmol/L 06/07/2024 12:19 PM [facility] Base Excess, Arterial -1.5 -3.0 - 3.0 mmol/L 06/07/2024 12:19 PM [facility] Hemoglobin, Arterial 12.7(L) 13.7 - 16.5 g/dL 06/07/2024 12:19 PM [facility] Oxyhemoglobin, Arterial 97.9(H) 94.0 - 97.0 % 06/07/2024 12:19 PM [facility] Carboxyhemoglobin , Arterial 0.4 % 06/07/2024 12:19 PM [facility] Comment: Nonsmokers: 0.5-1.5% COHB ?? Smokers: Variable ??but usually less than 10% ?? Toxic: 20-30% COHB ?? Lethal: Greater than 60% COHB Methemoglobin, Arterial 0.5 <=1.5 % 06/07/2024 12:19 PM [facility] Sodium, Arterial 136 135 - 145 mmol/L 06/07/2024 12:19 PM [facility] Potassium, Arterial 4.4 3.5 - 5.0 mmol/L 06/07/2024 12:19 PM [facility] Chloride, Arterial 104 98 - 107 mmol/L 06/07/2024 12:19 PM [facility] Lactate, Arterial 3.0(H) 0.5 - 2.2 mmol/L 06/07/2024 12:19 PM [facility] Fraction of Inspired Oxygen 59 % 06/07/2024 12:19 PM [facility] Flow Rate 0.6 L/min 06/07/2024 12:19 PM [facility] PF Ratio 254 Ratio 06/07/2024 12:19 PM [facility] Comment:PF ratio calculated using the non-temperature corrected pO2 result. Patient Temperature 36.7 C 06/07/2024 12:19 PM [facility] IONIZED CALCIUM, ARTERIAL 1.15 1.15 - 1.33 mmol/L 06/07/2024 12:19 PM [facility] Glucose, Arterial 107 65 - 199 mg/dL 06/07/2024 12:19 PM [facility] Comment:Glucose Concentratio n >=200 mg/dL plus symptoms is consistent with Diabetes Mellitus. Blood ARTERIAL BLOOD / Unknown 06/07/2024 12:18 PM EST 06/07/2024 12:19 PM EST Brandon Rojo MD POINT OF CARE TEST O RDERABLES [facility] [place] [address] * (ABNORMAL) Blood Gas, Arterial POC (06/07/2024 12:11 PM EST) pH, Arterial 7.40 7.35 - 7.45 06/07/2024 12:13 PM [facility] PH Corrected, Arterial 7.41 7.35 - 7.45 06/07/2024 12:13 PM [facility] PCO2, Arterial 38 35 - 45 mmHg 06/07/2024 12:13 PM [facility] PCO2 Corrected, Arterial 37 35 - 45 mmHg 06/07/2024 12:13 PM [facility] PO2, Arterial 169(H) 85 - 104 mmHg 06/07/2024 12:13 PM [facility] PO2 Corrected, Arterial 162.4(H) 85 - 104 mmHg 06/07/2024 12:13 PM [facility] Bicarbonate, Arterial 23.0 20.0 - 26.0 mmol/L 06/07/2024 12:13 PM [facility] Base Excess, Arterial -1.8 -3.0 - 3.0 mmol/L 06/07/2024 12:13 PM [facility] Hemoglobin, Arterial 12.3(L) 13.7 - 16.5 g/dL 06/07/2024 12:13 PM [facility] Oxyhemoglobin, Arterial 98.2(H) 94.0 - 97.0 % 06/07/2024 12:13 PM [facility] Carboxyhemoglobin , Arterial 0.4 % 06/07/2024 12:13 PM [facility] Comment: Nonsmokers: 0.5-1.5% COHB ?? Smokers: Variable ??but usually less than 10% ?? Toxic: 20-30% COHB ?? Lethal: Greater than 60% COHB Methemoglobin, Arterial 0.4 <=1.5 % 06/07/2024 12:13 PM [facility] Sodium, Arterial 138 135 - 145 mmol/L 06/07/2024 12:13 PM [facility] Potassium, Arterial 4.2 3.5 - 5.0 mmol/L 06/07/2024 12:13 PM [facility] Chloride, Arterial 106 98 - 107 mmol/L 06/07/2024 12:13 PM [facility] Lactate, Arterial 3.0(H) 0.5 - 2.2 mmol/L 06/07/2024 12:13 PM [facility] Fraction of Inspired Oxygen 59 % 06/07/2024 12:13 PM [facility] Flow Rate 0.5 L/min 06/07/2024 12:13 PM [facility] PF Ratio 286 Ratio 06/07/2024 12:13 PM [facility] Comment:PF ratio calculated using the non-temperature corrected pO2 result. Patient Temperature 35.9 C 06/07/2024 12:13 PM [facility] IONIZED CALCIUM, ARTERIAL 1.13(L) 1.15 - 1.33 mmol/L 06/07/2024 12:13 PM [facility] Glucose, Arterial 104 65 - 199 mg/dL 06/07/2024 12:13 PM [facility] Comment:Glucose Concentratio n >=200 mg/dL plus symptoms is consistent with Diabetes Mellitus. Blood ARTERIAL BLOOD / Unknown 06/07/2024 12:11 PM EST 06/07/2024 12:13 PM EST Brandon Rojo MD POINT OF CARE TEST O RDERABLES [facility] [place] [address] * (ABNORMAL) Blood Gas, Arterial POC (06/07/2024 8:48 AM EST) pH, Arterial 7.38 7.35 - 7.45 06/07/2024 8:49 AM [facility] PH Corrected, Arterial 7.43 7.35 - 7.45 06/07/2024 8:49 AM [facility] PCO2, Arterial 37 35 - 45 mmHg 06/07/2024 8:49 AM [facility] PCO2 Corrected, Arterial 32(L) 35 - 45 mmHg 06/07/2024 8:49 AM [facility] PO2, Arterial 199(H) 85 - 104 mmHg 06/07/2024 8:49 AM [facility] PO2 Corrected, Arterial 184.1(H) 85 - 104 mmHg 06/07/2024 8:49 AM [facility] Bicarbonate, Arterial 21.2 20.0 - 26.0 mmol/L 06/07/2024 8:49 AM [facility] Base Excess, Arterial -4.0(L) -3.0 - 3.0 mmol/L 06/07/2024 8:49 AM [facility] Hemoglobin, Arterial 13.1(L) 13.7 - 16.5 g/dL 06/07/2024 8:49 AM [facility] Oxyhemoglobin, Arterial 98.3(H) 94.0 - 97.0 % 06/07/2024 8:49 AM [facility] Carboxyhemoglobin , Arterial 0.4 % 06/07/2024 8:49 AM [facility] Comment: Nonsmokers: 0.5-1.5% COHB ?? Smokers: Variable ??but usually less than 10% ?? Toxic: 20-30% COHB ?? Lethal: Greater than 60% COHB Methemoglobin, Arterial 0.5 <=1.5 % 06/07/2024 8:49 AM [facility] Sodium, Arterial 139 135 - 145 mmol/L 06/07/2024 8:49 AM [facility] Potassium, Arterial 3.8 3.5 - 5.0 mmol/L 06/07/2024 8:49 AM [facility] Chloride, Arterial 103 98 - 107 mmol/L 06/07/2024 8:49 AM [facility] Lactate, Arterial 2.1 0.5 - 2.2 mmol/L 06/07/2024 8:49 AM [facility] Fraction of Inspired Oxygen 59 % 06/07/2024 8:49 AM [facility] Flow Rate 0.3 L/min 06/07/2024 8:49 AM [facility] PF Ratio 337 Ratio 06/07/2024 8:49 AM [facility] Comment:PF ratio calculated using the non-temperature corrected pO2 result. Patient Temperature 33.9 C 06/07/2024 8:49 AM EST [facility] IONIZED CALCIUM, ARTERIAL 1.18 1.15 - 1.33 mmol/L 06/07/2024 8:49 AM EST [facility] Glucose, Arterial 86 65 - 199 mg/dL 06/07/2024 8:49 AM EST [facility] Comment:Glucose Concentratio n >=200 mg/dL plus symptoms is consistent with Diabetes Mellitus. Blood ARTERIAL BLOOD / Unknown 06/07/2024 8:48 AM EST 06/07/2024 8:49 AM EST Brandon Rojo MD POINT OF CARE TEST O RDERABLES [facility] [place] [place] [address] * IR OR VASC Aniogram Image Storage Only (06/07/2024 7:06 AM EST) Narrative [facility] - 06/07/2024 7:06 AM EST This exam is auto-finalizing. It's purpose is for storage only. Brandon Rojo MD IMG FILM LIBRARY ORD ERABLES Performing Organization Address City/[facility]/ZIP Co de Phone Number [place], [place] * Creatinine (06/07/2024 6:37 AM EST) Creatinine 0.89 0.80 - 1.50 mg/dL 06/07/2024 7:14 AM EST [facility] Est Glomerular Filtration Rate - Male 93 mL/min/1. 73 m?? 06/07/2024 7:14 AM EST [facility] Comment: This patient's estimated [...] EST 06/07/2024 6:43 AM EST Dhara Prabhakar APRN CHEMISTRY ORDERABLES [facility] [place] [address] * Scan Doc: Implantable Devices (06/07/2024 12:00 AM EST) Narrative 06/07/2024 12:00 AM EST Ordered by an unspecified provider. Scanning Provider MEDIA MGR SCAN EXT O RDR/RSLT documented in this encounter Visit Diagnoses Diagnosis Status post endovascular aneurysm repair (EVAR) Abdominal aortic aneurysm (AAA) without rupture, unspecified part Status post endovascular aneurysm repair (EVAR) Abdominal aortic aneurysm (AAA) without rupture, unspecified part documented in this encounter Active and Recently Administered Medications Due to Daylight Saving Time, this section may contain times in both EDT and EST. Scheduled Medication Order 06/05/2024 06/06/2024 06/07/2024 ceFAZolin (Ancef) 2 g vial attach to sodium chloride 0.9% 100 mL Mini-Bag Plus (COMPLETED) 2 g, Intravenous, INFORMATION SECURITY SYSTEMS INSTRUCTOR TO O.R., 1 dose, On Thu06/07/24 at 0630, Administer over 30 Minutes, Redose after 4 hours., Day of Surgery (Day of Procedure), Indication for (Active or Suspected): Prophylaxis 0757 (New Bag - Prov ider: Nomi Ramos CRNA)1157 (Bolus - Provider: Nomi Ramos CRNA) documented in this encounter Care Teams Meter Attendant Relationship Specialty Start Date End Date Melvin Alarcon MD [address] [place] [address] PCP - General Internal Medicine 07/22/23 documented as of this encounter
--- OUTSIDE RECORDS SUMMARY | 2024-08-01 15:25 | XMS_ITS | Encounter Summary ---
Author Organization [facility] Address [facility] [place] [address] Care Team Providers Care Silk Screen Printer Machine Name Role Phone Melvin Alarcon MD Primary Care Provider [phone] Reason for Referral * Diagnostic Test (Routine) - Pending Review Specialty Diagnoses / Procedures Referred By Sheila colvin Referred To Contact Radiology Diagnoses Status post endovascular aneurysm repair (EVAR) Abdominal aortic aneurysm (AAA) without rupture, unspecified part Procedures CT Angiogram Abdomen & Pelvis w Contrast (Generic) Georgette Rocha APRN [facility] [place] [address] Referral ID Status Reason Start Date Expiration Date Visits Requested Visits Authorized [id number] Pending Review Specialty Service Requested 4 12/08/2025 1 1 Encounter Details Date Type Department Care Team (Late st Contact Info) Description 06/10/2024 Orders [place] [address] Irene Iyer, LIANA Status post endovascular aneurysm repair (EVAR); Abdominal aortic aneurysm (AAA) without rupture, unspecified part Social History Tobacco Use Types Packs/Day Years Used Date Smoking Tobacco: Former Cigarettes 1 38 0 08/06/1973 - 08/06/2011 Smokeless Tobacco: Never Alcohol Use Standard Drinks/Week Comments Yes 2 (1 standard drink = 0.6 oz pure alcohol) rarely one glass of wine occasionally, one every other day [facility] Inpatient Questions Answer Date Recorded Does Anyone [...] AM EDT Office Visit Radiation Oncology at [address] [phone] Jesse Mcmahan MD [facility] [place] [address] Scheduled Orders Name Type Priority Associated Diagnoses Orde r Schedule Creatinine Lab STAT Status post endovascular aneurysm repair (EVAR) Abdominal aortic aneurysm (AAA) without rupture, unspecified part Expected: 06/24/2024 (Approximate), Expires: 06/10/2025 CT Angiogram Abdomen & Pelvis w Contrast (Generic) Imaging Routine Status post endovascular aneurysm repair (EVAR) Abdominal aortic aneurysm (AAA) without rupture, unspecified part Expected: 06/17/2024 (Approximate), Expires: 06/10/2025 documented as of this encounter Visit Diagnoses Diagnosis Status post endovascular aneurysm repair (EVAR) Abdominal aortic aneurysm (AAA) without rupture, unspecified part documented in this encounter Care Teams Silk Screen Printer Machine Relationship Specialty Start Date End Date Melvin Alarcon MD [address] [place] [address] PCP - General Internal Medicine 07/22/23 documented as of this encounter
--- OUTSIDE RECORDS SUMMARY | 2024-08-01 15:25 | XMS_ITS | Encounter Summary ---
[place] [address] Care Team Providers Care Sawmilling Operator Name Role Phone Melvin Alarcon MD Primary Care Provider [phone] Reason for Visit * Reason Onset Date Comments Medication Refill 08/28/2023 Encounter Details Date Type Department Care Team (Late Contact Info) Description 08/28/2023 [place] [phone] Trey David, RN Social History Tobacco Use Types Packs/Day Years [...] Encounter - Trey David RN - 08/28/2023 10:34 AM EST Images from the original note were not included. Media Information Document Information Other: External Correspondence - non [facility] 08/27/2023 00:00 Attached To: scans only on 08/27/23 with Provider, Scanning Source Information Provider, Scanning documented in this encounter Plan of Treatment Upcoming Encounters Date Type Department Care Team (Late Contact Info) Description 05/24/2025 11:00 AM EDT Office Visit Radiation Oncology at [address] [phone] Jesse Mcmahan MD [facility] [place] [address] documented as of this encounter Visit Diagnoses Not on filedocumented in this encounter Care Teams Sawmilling Operator Relationship Specialty Start Date End Date Melvin Alarcon MD [address] [place] [address] PCP - General Internal Medicine 07/22/23 documented as of this encounter
--- OUTSIDE RECORDS SUMMARY | 2024-08-01 15:25 | XMS_ITS | Encounter Summary ---
Author [place] [address] Care Team Providers Care Nitrocellulose Operator Name Role Phone Melvin Alarcon MD Primary Care Provider Reason for Referral * Diagnostic Test (Routine) - Authorized Specialty Diagnoses / Procedures Referred By Sheila colvin Referred To Contact Radiology Diagnoses Abdominal aortic aneurysm (AAA) without rupture, unspecified part Procedures CT Angiogram Abdomen & Pelvis w Contrast (Generic) Amari Reilly MD [facility] [place] [address] [facility] [place] [address] Referral ID Status Reason Start Date Expiration Date Visits Requested Visits Authorized [id number] Authorized Specialty Service Requested 06/07/2024 12/05/2025 1 1 Reason for Visit * Auth/Cert (Routine) Specialty Diagnoses / Procedures Referred By Sheila colvin Referred To Contact Diagnoses Status post endovascular aneurysm repair (EVAR) Abdominal aortic aneurysm (AAA) without rupture, unspecified part Endo leak Procedures PRO VASCULAR EMBOLIZATION OR OCCLUSION ARTERIAL RAD S&I VASCULAR EMBOLIZATION/OCCLUSION,ARTER Y,OTHER [employer]AN [employer]. S&I (WRVU 9.8) Brandon Rojo MD [facility] [address] [facility] Referral ID Status Reason Start Date Expiration Date Visits Re quested Visits Authorized [id number] 1 1 Encounter Details Date Type Department Care Team (Latest Contact Info) Description 06/07/2024 5:54 AM EST - 06/07/2024 3:45 PM EST Hospital Encounter [place] [address] Brandon Rojo MD [facility] [place] [address] Status post endovascular aneurysm repair (EVAR); Abdominal aortic aneurysm (AAA) without rupture, unspecified part Discharge Disposition: Home Social History Tobacco Use Types Packs/Day Years [...] Sign Reading Time Taken Comments Blood Pressure 148/88 06/07/2024 3:26 PM EST Pulse 70 06/07/2024 3:26 PM EST Temperature 37.5 ??C (99.5 ??F) 06/07/2024 1 2:56 PM EST Respiratory Rate 14 06/07/2024 3:26 PM EST [...] it, or have other questions please call [phone] as your followup is very important to [...] questions/concerns with them both. Pain assessment documented . Sebastian was escorted out of department via wheelchair with RN. documented in this encounter H&P Notes * Erich Pinzon MD - 06/07/2024 7:12 AM EST H&P 24hr interval update/Pre-operative note Please see Dr. Rojo's note from clinic on 03/11/24 for further information. ID: Sebastian Wyatt is a 69 y.o. male with a hx of infrarenal AAA s/p EVAR ( Camp excluder, 2019). He was been lost to follow up until recently. Surviellence CTA demonstrated interval growth of aneurysm sac from 5.4 cm to 6.8 cm. He presents to [facility] for aortogram and attempted coil embolization of [...] PET SCAN performed by RESOURCE, ANESTHESIA-IRIS at [facility] IRIS PET SCAN (SCAN) 07/06/2012 PET SCAN performed by Anesthesia-Iris Resource at [facility] PRO ENDOVASC REPAIR DEPLOYMENT [id number] ENDOGRAFT N/A 01/28/2019 @EVG, AORTA/ILIAC ART RPR [id number] ENDOGRAFT; ANEURX performed by Brandon Rojo MD at [facility] MAIN OR PRO LARYNGOSCOPY, DIRCT, OP SCOP, EXC TUMR 12/12/2011 LARYNGOSCOPY, DIRECT, EXCISION OF TUMOR, CORD STRIPPING, MICRO performed by BECKY GANN at [facility] MAIN OR PRO LARYNGOSCOPY, DIRCT, OP SCOPE, BIOPSY 12/12/2011 LARYNGOSCOPY, MICROSCOPE, WITH BIOPSY performed by BECKY GANN at [facility] MAIN OR PRO PERQ ACCESS & CLOSURE FEM ART FOR DELIVERY NDGFT Bilateral 01/28/2019 PERC ACCESS & CLOSURE OF FEMORAL ARTER FOR DELIVERY OF ENDOGRAFT THROUGH LARGE SHEATH performedby Brandon Rojo MD at [facility] MAIN OR Social History Socioeconomic History Marital [...] Not on file Social History Narrative 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 Lives near [facility] with , 13yo daughter, 2 horses, 2 dogs. Social Determinants of Health Financial Resource Strain: Not on file Food Insecurity: Not on file Transportation Needs: Not on file Physical Activity: Not on file Intimate Partner Violence: Patient Unable To Answer (06/07/2024) IPV Inpatient Questions Prevent Contact with Others: unable [...] Pinzon MD - 06/07/2024 8:42 AM EST [facility] Operative Note Patient Name: Sebastian Wyatt : [id number] MR#: [id number] Case Date: 06/07/2024 Surgeon: Surgeons and Role: [...] embolization of distal right hypogastric arterial branches [employer] Embold coils 2x6 cm, 3mmx12 cm( x2), 3mm x16 cm (x2), [id number] (x2), 5 mx15 cm(x3), 5mmx8 cm. Completion [...] hx of infrarenal AAA s/p EVAR ( Camp excluder, 2019). He was been lost to follow up until recently. Surviellence CTA demonstrated interval growth of aneurysm sac from 5.4 cm to 6.8 cm. He presents to [facility] for aortogram and attempted coil embolization of [...] technique. These were then upsized to 5 [place] Islander sheaths. A floppy glide catheter was advanced [...] a type II endoleak. Next, using multiple [employer] and bold coils as designated above, the inflow branches supplying the lumbar artery were coil embolized back to the distal right hypogastric artery. A completion angiogram demonstrated no further filling or evidence of type II endoleak. Satisfied with the result, the wires and catheters were then removed and the 5 [place] Islander sheaths were removed with the assistance of [...] AM EDT Office Visit Radiation Oncology at [address] [phone] Jesse Mcmahan MD [facility] [place] [address] Scheduled Orders Name Type Priority Associated Diagnoses [...] EST Vascular Embolization Or Occlusion Arterial Rad S&I(73098) 06/07/2024 7:37 AM EST Status post endovascular [...] 7.40 7.35 - 7.45 06/07/2024 12:19 PM [facility] PH Corrected, Arterial 7.41 7.35 - 7.45 06/07/2024 12:19 PM [facility] PCO2, Arterial 38 35 - 45 mmHg 06/07/2024 12:19 PM [facility] PCO2 Corrected, Arterial 38 35 - 45 mmHg 06/07/2024 12:19 PM [facility] PO2, Arterial 150(H) 85 - 104 mmHg 06/07/2024 12:19 PM [facility] PO2 Corrected, Arterial 148.5(H) 85 - 104 mmHg 06/07/2024 12:19 PM [facility] Bicarbonate, Arterial 23.2 20.0 - 26.0 mmol/L 06/07/2024 12:19 PM [facility] Base Excess, Arterial -1.5 -3.0 - 3.0 mmol/L 06/07/2024 12:19 PM [facility] Hemoglobin, Arterial 12.7(L) 13.7 - 16.5 g/dL 06/07/2024 12:19 PM [facility] Oxyhemoglobin, Arterial 97.9(H) 94.0 - 97.0 % 06/07/2024 12:19 PM [facility] Carboxyhemoglobin , Arterial 0.4 % 06/07/2024 12:19 PM [facility] Comment: Nonsmokers: 0.5-1.5% COHB ?? Smokers: Variable ??but usually less than 10% ?? Toxic: 20-30% COHB ?? Lethal: Greater than 60% COHB Methemoglobin, Arterial 0.5 <=1.5 % 06/07/2024 12:19 PM [facility] Sodium, Arterial 136 135 - 145 mmol/L 06/07/2024 12:19 PM [facility] Potassium, Arterial 4.4 3.5 - 5.0 mmol/L 06/07/2024 12:19 PM [facility] Chloride, Arterial 104 98 - 107 mmol/L 06/07/2024 12:19 PM [facility] Lactate, Arterial 3.0(H) 0.5 - 2.2 mmol/L 06/07/2024 12:19 PM [facility] Fraction of Inspired Oxygen 59 % 06/07/2024 12:19 PM [facility] Flow Rate 0.6 L/min 06/07/2024 12:19 PM [facility] PF Ratio 254 Ratio 06/07/2024 12:19 PM [facility] Comment:PF ratio calculated using the non-temperature corrected pO2 result. Patient Temperature 36.7 C 06/07/2024 12:19 PM [facility] IONIZED CALCIUM, ARTERIAL 1.15 1.15 - 1.33 mmol/L 06/07/2024 12:19 PM [facility] Glucose, Arterial 107 65 - 199 mg/dL 06/07/2024 12:19 PM [facility] Comment:Glucose Concentratio n >=200 mg/dL plus symptoms is consistent with Diabetes Mellitus. Blood ARTERIAL BLOOD / Unknown 06/07/2024 12:18 PM EST 06/07/2024 12:19 PM EST Brandon Rojo MD POINT OF CARE TEST O RDERABLES [facility] [place] [address] * (ABNORMAL) Blood Gas, Arterial POC (06/07/2024 12:11 PM EST) pH, Arterial 7.40 7.35 - 7.45 06/07/2024 12:13 PM EST [facility] PH Corrected, Arterial 7.41 7.35 - 7.45 06/07/2024 12:13 PM EST [facility] PCO2, Arterial 38 35 - 45 mmHg 06/07/2024 12:13 PM [facility] PCO2 Corrected, Arterial 37 35 - 45 mmHg 06/07/2024 12:13 PM [facility] PO2, Arterial 169(H) 85 - 104 mmHg 06/07/2024 12:13 PM [facility] PO2 Corrected, Arterial 162.4(H) 85 - 104 mmHg 06/07/2024 12:13 PM [facility] Bicarbonate, Arterial 23.0 20.0 - 26.0 mmol/L 06/07/2024 12:13 PM [facility] Base Excess, Arterial -1.8 -3.0 - 3.0 mmol/L 06/07/2024 12:13 PM [facility] Hemoglobin, Arterial 12.3(L) 13.7 - 16.5 g/dL 06/07/2024 12:13 PM [facility] Oxyhemoglobin, Arterial 98.2(H) 94.0 - 97.0 % 06/07/2024 12:13 PM [facility] Carboxyhemoglobin , Arterial 0.4 % 06/07/2024 12:13 PM [facility] Comment: Nonsmokers: 0.5-1.5% COHB ?? Smokers: Variable ??but usually less than 10% ?? Toxic: 20-30% COHB ?? Lethal: Greater than 60% COHB Methemoglobin, Arterial 0.4 <=1.5 % 06/07/2024 12:13 PM [facility] Sodium, Arterial 138 135 - 145 mmol/L 06/07/2024 12:13 PM [facility] Potassium, Arterial 4.2 3.5 - 5.0 mmol/L 06/07/2024 12:13 PM [facility] Chloride, Arterial 106 98 - 107 mmol/L 06/07/2024 12:13 PM [facility] Lactate, Arterial 3.0(H) 0.5 - 2.2 mmol/L 06/07/2024 12:13 PM [facility] Fraction of Inspired Oxygen 59 % 06/07/2024 12:13 PM [facility] Flow Rate 0.5 L/min 06/07/2024 12:13 PM [facility] PF Ratio 286 Ratio 06/07/2024 12:13 PM [facility] Comment:PF ratio calculated using the non-temperature corrected pO2 result. Patient Temperature 35.9 C 06/07/2024 12:13 PM [facility] IONIZED CALCIUM, ARTERIAL 1.13(L) 1.15 - 1.33 mmol/L 06/07/2024 12:13 PM [facility] Glucose, Arterial 104 65 - 199 mg/dL 06/07/2024 12:13 PM [facility] Comment:Glucose Concentratio n >=200 mg/dL plus symptoms is consistent with Diabetes Mellitus. Blood ARTERIAL BLOOD / Unknown 06/07/2024 12:11 PM EST 06/07/2024 12:13 PM EST Brandon Rojo MD POINT OF CARE TEST O RDERABLES [facility] [place] [address] * (ABNORMAL) Blood Gas, Arterial POC (06/07/2024 8:48 AM EST) [facility] pH, Arterial 7.38 7.35 - 7.45 06/07/2024 8:49 AM [facility] PH Corrected, Arterial 7.43 7.35 - 7.45 06/07/2024 8:49 AM [facility] PCO2, Arterial 37 35 - 45 mmHg 06/07/2024 8:49 AM [facility] PCO2 Corrected, Arterial 32(L) 35 - 45 mmHg 06/07/2024 8:49 AM [facility] PO2, Arterial 199(H) 85 - 104 mmHg 06/07/2024 8:49 AM [facility] PO2 Corrected, Arterial 184.1(H) 85 - 104 mmHg 06/07/2024 8:49 AM [facility] Bicarbonate, Arterial 21.2 20.0 - 26.0 mmol/L 06/07/2024 8:49 AM [facility] Base Excess, Arterial -4.0(L) -3.0 - 3.0 mmol/L 06/07/2024 8:49 AM [facility] Hemoglobin, Arterial 13.1(L) 13.7 - 16.5 g/dL 06/07/2024 8:49 AM [facility] Oxyhemoglobin, Arterial 98.3(H) 94.0 - 97.0 % 06/07/2024 8:49 AM [facility] Carboxyhemoglobin , Arterial 0.4 % 06/07/2024 8:49 AM [facility] Comment: Nonsmokers: 0.5-1.5% COHB ?? Smokers: Variable ??but usually less than 10% ?? Toxic: 20-30% COHB ?? Lethal: Greater than 60% COHB Methemoglobin, Arterial 0.5 <=1.5 % 06/07/2024 8:49 AM [facility] Sodium, Arterial 139 135 - 145 mmol/L 06/07/2024 8:49 AM [facility] Potassium, Arterial 3.8 3.5 - 5.0 mmol/L 06/07/2024 8:49 AM [facility] Chloride, Arterial 103 98 - 107 mmol/L 06/07/2024 8:49 AM [facility] Lactate, Arterial 2.1 0.5 - 2.2 mmol/L 06/07/2024 8:49 AM [facility] Fraction of Inspired Oxygen 59 % 06/07/2024 8:49 AM [facility] Flow Rate 0.3 L/min 06/07/2024 8:49 AM [facility] PF Ratio 337 Ratio 06/07/2024 8:49 AM [facility] Comment:PF ratio calculated using the non-temperature corrected pO2 result. Patient Temperature 33.9 C 06/07/2024 8:49 AM [facility] IONIZED CALCIUM, ARTERIAL 1.18 1.15 - 1.33 mmol/L 06/07/2024 8:49 AM [facility] Glucose, Arterial 86 65 - 199 mg/dL 06/07/2024 8:49 AM [facility] Comment:Glucose Concentratio n >=200 mg/dL plus symptoms is consistent with Diabetes Mellitus. Blood ARTERIAL BLOOD / Unknown 06/07/2024 8:48 AM EST 06/07/2024 8:49 AM EST Brandon Rojo MD POINT OF CARE TEST O RDERABLES Performing Organization Address City/[facility]/ZIP Co de Phone Number [facility] [place] [address] * IR OR VASC Aniogram Image Storage Only (06/07/2024 7:06 AM EST) Narrative [facility] - 06/07/2024 7:06 AM EST This exam is auto-finalizing. It's purpose is for storage only. Brandon Rojo MD [facility] FILM LIBRARY ORD ERABLES [place], [place] * Creatinine (06/07/2024 6:37 AM EST) Creatinine 0.89 0.80 - 1.50 mg/dL 06/07/2024 7:14 AM EST [facility] Est Glomerular Filtration Rate - Male 93 mL/min/1. 73 m?? 06/07/2024 7:14 AM EST [facility] Comment: This patient's [...] AM EST Dhara Prabhakar APRN CHEMISTRY ORDERABLES [facility] [place] [address] * Scan Doc: Implantable Devices (06/07/2024 12:00 [...] mL Mini-Bag Plus (COMPLETED) 2 g, Intravenous, MOTOR COACH TOUR OPERATOR TO O.R., 1 dose, On Thu06/07/24 at 0630, Administer over 30 Minutes, Redose after 4 hours., Day of Surgery (Day of Procedure), Indication for (Active or Suspected): Prophylaxis 0757 (New Bag - Prov ider: Nomi Ramos CRNA)1157 (Bolus - Provider: Nomi Ramos CRNA) documented in this encounter Care Teams Nitrocellulose Operator Relationship Specialty Start Date End Date Melvin Alarcon MD [address] [place] [address] PCP - General Internal Medicine 07/22/23 documented as of this encounter
--- OUTSIDE RECORDS SUMMARY | 2024-08-01 15:25 | XMS_ITS | Encounter Summary ---
Author Organization [facility] [address] Care Team Providers Care Photographic Supervisor Name Role Phone Melvin Alarcon MD Primary Care Provider [phone] Reason for Referral * Consultation (Urgent) - Closed Specialty Diagnoses / Procedures Referred By Contstephanie t Referred To Contact Vascular Surgery Diagnoses Abdominal aortic aneurysm (AAA) without rupture, unspecified part Procedures Triage 02/24 Melvin Alarcon MD [address] [place] [address] [facility] [address] [place] [address] Referral ID Status Reason Start Date Expiration Date V isits Requested Visits Authorized [id number] Closed Consult, Test & Treat 02/25/2024 02/24/2025 1 1 Encounter Details Date Type Department Care Team (Latest Contact Info) Description 02/25/2024 Transcribe Orders eDH Incoming Referrals [phone] Melvin Alarcon MD [address] [place] [address] Abdominal aortic aneurysm (AAA) without rupture, unspecified [...] EDT Office Visit Radiation Oncology at [address] [phone] Jesse Mcmahan MD [facility] [place] [address] Scheduled Referrals Name Type Priority Associated Diagnoses Orde r Schedule Referral to Vascular Surgery Outpatient Referral Urgent Abdominal aortic aneurysm (AAA) without rupture, unspecified part Ordered: 02/25/2024 documented as of this encounter Visit Diagnoses Diagnosis Abdominal aortic aneurysm (AAA) without rupture, unspecified part documented in this encounter Care Teams Photographic Supervisor Relationship Specialty Start Date End Date Melvin Alarcon MD [address] [place] [address] PCP - General Internal Medicine 07/22/23 documented as of this encounter
--- OUTSIDE RECORDS SUMMARY | 2024-08-01 15:25 | XMS_ITS | Encounter Summary ---
Author Organization [facility] [place] [address] Care Team Providers Care Loading Dock Hand Name Role Phone Melvin Alarcon MD Primary Care Provider [phone] Encounter Details Date Type Department Care Team (Late st Contact Info) Description 07/22/2023 9:00 AM EST Office Visit Radiation Oncology at [address] [phone] Jesse Mcmahan MD [facility] [place] [address] Cancer of base of tongue Social History Tobacco Use Types Packs/Day Years [...] Sign Reading Time Taken Comments Blood Pressure 152/89 07/22/2023 9:08 AM EST Pulse 77 07/22/2023 9:08 AM EST Temperature 37.1 ??C (98.7 ??F) 07/22/2023 9 :08 AM EST Respiratory Rate 20 07/22/2023 9:08 AM EST Oxygen Saturation 98% 07/22/2023 9:0 8 AM EST Inhaled Oxygen Concentration - - Weight 97.2 kg (214 lb 3.2 oz) 07/22/20 9:08 AM EST with shoes Height - - Body Mass Index 30.73 07/11/2020 9:32 AM EST documented in this encounter Progress Notes * Scarlett Costa MD - 07/22/2023 9:00 AM EST Radiation Oncology Follow Up Note Patient Name: Sebastian Wyatt Primary MD: Melvin Alarcon MD Referring MD: Unknown Other Involved Physicians: Butch Catalan Oncologic History: Squamous cell carcinoma of L BOT, 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 1 PPD x 38 yrs. Quit 08/2011. Developed odynophagia early 11/2011, abx did not improve, . Referred to ENT. He does note some coughing in the morning ove the past year. Stagin12/09/11 CT H&N with contrast ([facility]): Mixed attenuation mass with lare low density areas suggesting necrotic change present deep to anterior aspect L SCM. Mass smoothly marginated, max 3.3 x 5.2 cm. 11/27/11 PET-CT ([facility] [place] [place]): Despite premedication, severe claustrophobia allowed this can only to be performed from the lower chest to the mid thighs. The CT portion of the examination was performed from the top of the head to the mid thighs: This study is of limited diagnostic value. Due to claustrophobia no scanning of the head, neck or upper chest was performed. No distant metastases are identifiedin this study. 12/12/11 EUA with triple endoscopy [...] cetuximab arm. Received 70 Gy completed 04/06/12 Interval History: Sebastian Wyatt returns for 11 year follow-up appointment. Pain: No pain in head and neck. 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 Neck sx: Continues to feels left neck tightness but he continues to work with ROM exercises. Deniesnew lumps or bumps. Mouth: Reports some numbness along his left lateral tongue for the past year with some increased difficulty with articulation. Saw ENT who believes it might be nerve damage. Scope normal 3 months ago. Xerostomia: Reports thick spit for the past year and xerostomia, needs to wash down with water. Denies dysgeusia. Swallowing: Occasionally has difficulty swallowing pills. Sensory deficits: Previously noted left hand numbness/tingling has improved but denies today. Dental: Had 4 mandibular teeth pulled since completing treatment, now has a dental plate. Physical Examination: Vitals: 07/22/23 0908 BP: 152/89 Patient Position: Sitting Pulse: 77 Resp: 20 Temp: 37.1 ??C (98.7 ??F) TempSrc: Temporal SpO2: 98% Weight: 97.2 kg (214 lb 3.2 oz) Physical Exam Constitutional: He is oriented to person, place, and time. He appears well- developed and well-nourished. HEENT: Visual inspection of OC and OP revealed no evidence of suspicious masses or lesions. Palpation reveals posterior aspect of oral tongue soft without masses or lesions. Oral tongue appears foreshortened and tethered posteriorly with limited mobility; some fullness and altered sensation left lateral tongue. No atrophy. Good dentition. Moisture moderate. Neck: No tracheal deviation present. Palpation reveals no adenopathy in cervical, SCLV, ICLV chance basins. He has fibrosis of the left neck that is significant, less so on the right neck. He has very mild tenderness to palpation along the SCLV on the left. Neurological: He is alert and oriented to person, place, and time. No cranial nerve deficit. Skin: Skin is warm and dry. Psychiatric: He has a normal mood and affect. His behavior is normal. Procedure: NPL: Deferred; per patient he had a normal scope [address] Parrish of [facility] ECO Interval Imaging/Labs: CT Neck performed at [place], we do not have these records. Assessment/Plan: Squamous cell carcinoma of the BOT. MARCO. He has developed left lateral tongue numbness, foreshortening of the tongue, increased difficulty with managing saliva and food over the past year, although he notes that symptoms have been stable over the past 3- months or so. He denies pain. Differential includes radiation neuritis, fibrosis, or potential second malignancy. He was evaluated by Dr. Parrish3 months ago with NPL and CT scan which did not demonstrate any evidence of disease. He continues to have stable fibrosis in his neck; his thyroid is followed by his PCP. He continues to see a dentist regularly and we encouraged use of supplemental fluoride. FU: Will obtain records from [facility] ENT and CT scan images and then consider role of MRI to explore his new symptoms (tongue numbness, foreshortening, etc). Scarlett Costa MD PGY5 Attending Statement: I saw the patient with Dr. Costa and agree with the history, physical, assessment, and plan as stated. -Jesse Mcmahan MD, PhD documented in this encounter Plan of Treatment Upcoming Encounters Date Type Department Care Team (Late st Contact Info) Description 05/24/2025 11:00 AM EDT Office Visit Radiation Oncology at [address] [phone] Jesse Mcmahan MD [facility] [place] [address] documented as of this encounter Visit Diagnoses Diagnosis Cancer of base of tongue Malignant neoplasm of base of tongue documented in this encounter Care Teams Loading Dock Hand Relationship Specialty Start Date End Date Melvin Alarcon MD [address] [place] [id number] PCP - General Internal Medicine 07/22/23 documented as of this encounter
--- OUTSIDE RECORDS SUMMARY | 2024-08-01 15:25 | XMS_ITS | Encounter Summary ---
Author Organization [facility] [place] [address] Care Team Providers Care Fiscal Economist Name Role Phone Melvin Alarcon MD Primary Care Provider [phone] Encounter Details Date Type Department Care Team (Late Contact Info) Description 07/12/2024 8:55 AM EST Ancillary Procedure Radiology Library at [facility] [place] [phone] Unknown None Social History Tobacco Use Types Packs/Day Years Used Date Smoking Tobacco: Former Cigarettes 1 38 0 08/06/1973 - 08/06/2011 Smokeless Tobacco: Never Alcohol Use Standard Drinks/Week Comments Yes 2 (1 standard drink = 0.6 oz pure alcohol) rarely one glass of wine occasionally, one every other day [facility] Inpatient Questions Answer Date Recorded Does [...] AM EDT Office Visit Radiation Oncology at [address] [phone] Jesse Mcmahan MD [facility] [address] documented as of this encounter Procedures Procedure Name Priority Date/Time Associated Diagnosis Comments FILM LIBRARY STORAGE ONLY CT ABDOMEN AND PELVIS Routine 07/12/2024 8:55 AM EST documented in this encounter Results * Film Library- Storage Only CT Abdomen & Pelvis (07/12/2024 8:55 AM EST) 07/12/2024 10:2 6 AM EST Narrative [facility] - 07/12/2024 10:26 AM EST This exam is auto-finalizing. It's purpose is for storage only. Unknown IMG FILM LIBRARY ORD ERABLES [place], [place] documented in this encounter Visit Diagnoses Not on filedocumented in this encounter Care Teams Fiscal Economist Relationship Specialty Start Date End Date Melvin Alarcon MD [address] [place] [address] PCP - General Internal Medicine 07/22/23 documented as of this encounter
--- OUTSIDE RECORDS SUMMARY | 2024-08-01 15:25 | XMS_ITS | Encounter Summary ---
Author Organization [facility] [place] [address] Care Team Providers Care [place] Marshal Name Role Phone Melvin Alarcon MD Primary Care Provider [phone] Reason for Visit * Auth/Cert (Routine) Specialty Diagnoses / Procedures Referred By Contac t Referred To Contact Diagnoses Status post endovascular aneurysm repair (EVAR) Abdominal aortic aneurysm (AAA) without rupture, unspecified part Endo leak Procedures PRO VASCULAR EMBOLIZATION OR OCCLUSION ARTERIAL RAD S&I VASCULAR EMBOLIZATION/OCCLUSION,ARTER Y,OTHER THAN HEMORRHAGE, INC. S&I (WRVU 9.8) Brandon Gregorio MD [facility] [place] [address] [facility] Referral ID Status Reason Start Date Expiration Date Visits Re quested Visits Authorized [id number] 1 1 Encounter Details Date Type Department Care Team (Late st Contact Info) Description 06/07/2024 7:38 AM EST Anesthesia Event [place] [address] Marion Dunn MD [facility] [place] [address] Anesthesia Record Procedure Summary Procedure Name Responsible Anesthesiologist Anesthesia Start Time Anesthesia Stop Time VASCULAR EMBOLIZATION/OCCLUS ION,ARTERY,OTHER THAN HEMORRHAGE, INC. S&I (WRVU 9.8) (Left: Trunk) Marion Dunn MD 06/07/24 0738 11/05/24 1300 Events Date Time Event Comment 06/07/2024 0720 0737 AN Verify 0738 Start 0738 An Start Data 0748 An Induction 0755 An Intubation 0808 Anesthesia Ready 0848 ABG Data Arterial Blood Gas result: pH 7.426 pCO2 31.9 pO2 184 %O2 Sat 99 FiO2 59 HCO3 21.2 BE -4.0 Hb 13.1 K 3.82 Glucose 86 Lactate 2.07 1020 Quick Note CO2 absorber ch anged - Inquired about heparin - No heparin- PSR 1104 Handoff Intra-procedure anesthesia care was transferred after review of the patient's history, current anesthetic/surgical status and procedural plan, anticipated issues and expected post-operative course (including disposition.) Marion Dunn MD 1116 Quick Note - Inquired abou t heparin - No heparin- PSR 1155 Handoff Intra-procedure anesthesia care was transferred after review of the patient's history, current anesthetic/surgical status and procedural plan, anticipated issues and expected post-operative course (including disposition.) Marion Dunn MD 1218 ABG Data Arterial Blood Gas result: pH 7.406 pCO2 37.7 pO2 148.5 %O2 Sat 99 FiO2- 59 HCO3 BE -1.5 Hb 12.7 K 4.43 Glucose 107 Lactate 2.95 1236 Extubation/LMA Out Extubatio n criteria met including SpO2 > 92%, spontaneous Vt > 5 mL/kg, spontaneous RR > 7 bpm, ETCO2 < 50 mmHg, ETCO2 downtrending towards baseline, full reversal of muscle relaxation, temperature > 35.5 C, and following verbal commands. Oropharynx suctioned and patient extubated to 8 L of oxygen via facemask. Hemodynamically stable and spontaneous ventilation maintained. 1253 an stop data 1259 Recovery or ICU Handoff Rachel ent care was transferred to the destination unit staff after review of the patient's medical history, current anesthetic/surgical status and plan, according to the Provider Handoff Checklist. 1300 Stop Meds Name Total midazolam 2 mg fentaNYL 100 mcg lidocaine IV 100 mg propofoL 220 mg propofol INF 960.28 mg rocuronium 110 mg sugammadex 200 mg PHENYLephrine 240 mcg dexAMETHasone 4 mg ondansetron 4 mg ceFAZolin (Ancef) 2 g vial a ttach to sodium chloride 0.9% 100 mL Mini-Bag Plus 4 g PHENYLephrine INF 5,875 mcg dexmedeTOMIDine 4 mcg/mL 8 mcg niCARdipine 0.6 mg lactated ringers 1,800 mL * Agents Name O2 Air N2O Sevoflurane (et) Isoflurane (et) O2 Auxiliary Flowmeter 2 * Blood No blood administrations on file. Lines, Drains, and Airways Type Details Placement Removal (RETIRED) Port A Cath 01/09/12; Chest 01/09/12 0 000 by Zaira Sheikh APRN (RETIRED) Power Port 01/09/12; 1035; Evelia st; Right; 8F LP D[address] CT Port lot# [id number] 01/09/12 1035 by Marion Huerta RN Urethral Catheter 06/07/24; 0800; Physician order; indwelling double lumen catheter; hydrophilic coated, latex; 14; 1; 10; none; drainage bag 06/07/24 0800 by Ingrid Kauffman RN Incision 06/07/24; 0859; Left , anterior; groin; non-laparascopic puncture 06/07/24 0859 by Ingrid Kauffman RN Incision 06/07/24; 1120; Righ t, anterior; groin; non-laparascopic puncture 06/07/24 1120 by Ingrid Kauffman RN PIV 06/07/24; 0632; 20 gauge; metacarpal vein (top of hand), right; PRASANTH Barrera; distraction, tolerated well, appears comfortable; 06/07/24; 1532 06/07/24 0632 by Khloe Chin RN 06/07/24 1532 by Xavier Garcia, RN ETT Mask Ventilation: Adjunct (2); ETT Type: Cuffed, Oral; ETT Size: 7.5 mm; Indirect: Video; Notes: Asleep, Pre-O2, Cricoid Pressure, Stylette; Attempts: 1; Laryngoscopy Grade: 1; ETT Placement Verified By: Auscultation, Capnometry, Visual; Secured at Teeth: 23 cm; Inserted by: WALI Sepulveda; Removal Date: 06/07/24; Removal Time: 1236 06/07/24 0755 by Nomi Ramos CRNA 06/07/24 1236 by Nomi Ramos CRNA PIV 06/07/24; 0806; [id number] catheter system; 18 gauge; cephalic vein (lateral side of arm), left; Anatomical Landmarks; MD Shaun; no longer indicated; 06/07/24; 1532 06/07/24 0806 by Nomi Ramos CRNA 06/07/24 1532 by Xavier Garcia, RN Arterial Line 06/07/24; 0808; radi al artery, right; 20 gauge; Anatomical Landmarks, Guidewire, Introducer Needle, Ultrasound Guidance; continuous blood pressure monitoring, frequent blood gas measurement; MD Shaun; Sterile Prep, Sterile Gloves; 1; radial artery, right; 06/07/24; 1246 06/07/24 0808 by Nomi Ramos CRNA 06/07/24 1246 by Nomi Ramos CRNA documented in this encounter Social History Tobacco Use Types Packs/Day Years [...] on file documented as of this encounter OR Notes * Anesthesia Postprocedure Evaluation - Marion Dunn MD - 06/07/2024 1:30 PM EST Department of Anesthesiology Post-procedure Note Patient: Sebastian Wyatt Procedure Summary Date: 06/07/24 Room / Location: [facility] OR [address] [place] [address] MAIN OR Anesthesia Start: 0738 Anesthesia Stop: 1300 Procedure: VASCULAR EMBOLIZATION/OCCLUSION,ARTERY,OTHER THAN HEMORRHAGE, INC. S&I (WRVU 9.8) (Left: Trunk) Diagnosis: Status post endovascular aneurysm repair (EVAR) Abdominal aortic aneurysm (AAA) without rupture, unspecified part (Endo leak) Surgeons: Brandon Gregorio MD Responsible Provider: Marion Dunn MD Anesthesia Type: general ASA Status: 3 All Anesthesia Providers: Anesthesiologist: Colin Waldrop MD; Marion Dunn MD SERVICE CAR DRIVER: Nomi Ramos CRNA Vitals Value Taken Time BP 148/88 06/07/24 1526 Temp 37.5 ??C (99.5 ??F) 06/07/24 1256 Pulse 70 06/07/24 1526 Resp 14 06/07/24 1526 SpO2 99 % 06/07/24 1526 Pain Level 0 06/07/24 1526 Patient Location: PACU/[facility] Level of Consciousness: Awake and Alert Pain Management: Satisfactory Analgesia PONV: None Cardiovascular Status: At Baseline and Hemodynamically Stable Respiratory Status: Supplemental O2 (NC or FM) and Stable Respiratory Status Postoperative Fluid Status: Intravascular EUvolemia Possible Anesthetic Complications: NONE apparent at time of evaluation Final Primary Anesthesia Type: General (The anesthetic type performed was the same as planned.) Comments: Marion Dunn MD * Anesthesia Preprocedure Evaluation - Marion Dunn MD - 06/06/2024 4:13 PM EST Pre-Anesthesia Evaluation for: Sebastian Wyatt a 69 y.o. male. Procedure(s): VASCULAR EMBOLIZATION/OCCLUSION,ARTERY,OTHER THAN HEMORRHAGE, INC. S&I (WRVU 9.8) Patient Active Problem List Diagnosis Date Noted ??? Cancer of base of tongue 12/04/2011 ??? Benign prostatic hyperplasia with lower urinary tract symptoms 01/27/2019 ??? Depression 01/27/2019 ??? AAA (abdominal aortic aneurysm) without rupture 01/09/2017 ??? 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 Dysphagia, unspecified(787.20) 02/03/2012 ??? DIFFICULT AIRWAY 12/22/2011 ??? Claustrophobia 12/17/2011 ??? 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 Obesity (BMI 30.0-34.9) 12/12/2011 ??? Hyperlipidemia 12/12/2011 ??? Hypertension 12/12/2011 ??? Glucose intolerance (impaired glucose tolerance) 12/12/2011 ??? Hypothyroidism 12/12/2011 ??? GERD (gastroesophageal reflux disease) 12/12/2011 ??? Psoriasis with arthropathy 12/12/2011 ??? LIBERTY on CPAP 12/12/2011 ??? Anxiety 12/12/2011 ??? Back pain, chronic 12/12/2011 ??? Thalassemia minor 12/12/2011 Past Medical History: Diagnosis Date ??? Acid reflux ??? Arthritis ??? Injury of left knee 2014 fall at work ??? Psoriasis ??? Psoriatic arthritis ??? Thyroid dysfunction Past Surgical History: Procedure Laterality Date ??? CARPAL TUNNEL RELEASE rt ??? PET SCAN (SCAN) 01/16/2012 PET SCAN performed by RESOURCE, ANESTHESIA-IRIS at [facility] ??? PET SCAN (SCAN) 07/06/2012 PET SCAN performed by Anesthesia-Iris Resource at [facility] ??? PRO ENDOVASC REPAIR DEPLOYMENT [id number] ENDOGRAFT N/A 01/28/2019 @EVG, AORTA/ILIAC ART RPR [id number] ENDOGRAFT; ANEURX performed by Brandon Gregorio MD at [facility] OR ??? PRO LARYNGOSCOPY, DIRCT, OP SCOP, EXC TUMR 12/12/2011 LARYNGOSCOPY, DIRECT, EXCISION OF TUMOR, CORD STRIPPING, MICRO performed by BECKY GANN at [facility] OR ??? PRO LARYNGOSCOPY, DIRCT, OP SCOPE, BIOPSY 12/12/2011 LARYNGOSCOPY, MICROSCOPE, WITH BIOPSY performed by BECKY GANN at [facility] OR ? ? PRO PERQ ACCESS & CLOSURE FEM ART FOR DELIVERY NDGFT Bilateral 01/28/2019 PERC ACCESS & CLOSURE OF FEMORAL ARTER FOR DELIVERY OF ENDOGRAFT THROUGH LARGE SHEATH performedby Brandon Gregorio MD at [facility] OR Social History Tobacco Use ??? Smoking status: Former Current packs/day: 0.00 Average packs/day: 1 pack/day for 38.0 years (38.0 ttl pk-yrs) Types: Cigarettes Start date: 08/06/1973 Quit date: 08/06/2011 Years since quittin.8 ??? Smokeless tobacco: Never Substance Use Topics ??? Alcohol use: Yes Alcohol/week: 1.0 standard drink of alcohol Types: 1 Glasses of wine per week Comment: rarely one glass of wine occasionally Social History Substance and Sexual Activity Drug Use Not Currently No Known Allergies Medications: MAR and/or home medications have been reviewed. Physical Exam: Preprocedure Vitals Current as of 06/06/24 1613 No BP, pulse, respiration, SpO2, or temperature recorded. Height: Weight: BMI: IBW: Airway Assessment: Mallampati: IV TM distance: >3 FB Neck ROM: limited Extremely limited mouth opening Cardiovascular Assessment: system normal Pulmonary Assessment: pulmonary exam normal Dental Assessment: - normal exam Misc Assessment: IV access: Peripheral line Last Filed Perioperative Cognitive Screening None Anesthesia Plan: ASA 3 general, with a(n) intravenous induction 69yoM with PMHx of HTN, HLD, hypothyroidism, GERD, thalassemia minor, anxiety/depression, former smoker, SCC/tongue cancer s/p chemotherapy/radiation, and AAA s/p prior endovascular repair, now with endo leak, currently s/f vascular embolization and repair of endo leak with Dr. Gregorio. AnesHx: Previous GA without complication. Difficult airway designation in problem list is without details. Most recent airway record 2019: MV with oral airway. It appears from most recent note: MAC 4gave grade 3 view, CMAC grade 1 view--bronchial isis was used. During recent Hem/onc visit 06/01/24 laryngoscopy was performed. Per note: Procedure: NPL: Flexible laryngoscopy was performed. The left naris was anesthetized with aerosolized lidocaine, and the laryngoscope was passed without difficulty. The nasopharynx was visualized and was without masses or lesions. The oropharynx, larynx, and piriform sinuses were visualized and notable for benign post radiation changes but were without masses or lesions. The vocal cords fully apposed. CVHx: None documented. Will discuss functional status. Plan: GA w/ ETT with CMAC and advance airway equipment available Standard ASA monitors + arterial line Adequate PIV access Phenylephrine/Nicardipine infusions Region - [facility] Informed Consent: Anesthetic plan and risks discussed with patient and spouse. Use of blood products discussed with patient who. Plan discussed with SERVICE CAR DRIVER and attending. Anesthesia Screening documented in this encounter Plan of Treatment Upcoming Encounters Date Type Department Care Team (Late st Contact Info) Description 05/24/2025 11:00 AM EDT Office Visit Radiation Oncology at [address] [phone] Jesse Mcmahan MD [facility] DR [place] [address] documented as of this encounter Visit Diagnoses Not on filedocumented in this encounter Administered Medications Inactive Administered Medications - up to 3 most recent administrations Medication Order MAR Action Action Date Dose Rate Site ceFAZolin (Ancef) 2 g vial attach to sodium chloride 0.9% 100 mL Mini-Bag Plus 2 g, Intravenous, FIRE BATTALION CHIEF TO O.R., 1 dose, On Thu06/07/24 at 0630, Administer over 30 Minutes, Redose after 4 hours., Day of Surgery (Day of Procedure), Indication for (Active or Suspected): Prophylaxis Bolus 06/07/2024 11:57 AM EST 2 g New Bag 06/07/2024 7:57 AM EST 2 g dexAMETHasone (Decadron) injection Intravenous, PRN, Starting on Thu06/07/24 at 0800, Until Thu06/07/24 at 1302, Anesthesia Intra-op, Routine Given 06/07/2024 8:00 AM EST 4 mg dexmedeTOMIDine (Precedex) (4 mcg/mL) bolus injection (Anesthsia) Intravenous, PRN, Starting on Thu06/07/24 at 1114, Until Thu06/07/24 at 1302, Anesthesia Intra-op, Routine Given 06/07/2024 11:32 AM EST 4 mcg Given 06/07/2024 11:14 AM EST 4 mcg fentaNYL (pf) (50 mcg/mL) multi-dose injection Intravenous, PRN, Starting on Thu06/07/24 at 0748, Until Thu06/07/24 at 1302, Anesthesia Intra-op, Routine Given 06/07/2024 7:48 AM EST 100 mcg lactated ringers infusion Intravenous, CONTINUOUS PRN, Starting on Thu06/07/24 at 0737, Until Thu06/07/24 at 1302, Anesthesia Intra-op New Bag 06/07/2024 10:22 AM EST New Bag 06/07/2024 7:37 AM EST lidocaine (pf) (Xylocaine) (20 mg/mL) 2% injection syringe Intravenous, PRN, Starting on Thu06/07/24 at 0748, Until Thu06/07/24 at 1302, Anesthesia Intra-op, Routine Given 06/07/2024 7:48 AM EST 100 mg midazolam (pf) (Versed) (1 mg/mL) multi-dose injection Intravenous, PRN, Starting on Thu06/07/24 at 0739, Until Thu06/07/24 at 1302, Anesthesia Intra-op, Routine Given 06/07/2024 7:39 AM EST 2 mg niCARdipine (Cardene) injection Intravenous, PRN, Starting on Thu06/07/24 at 1236, Until Thu06/07/24 at 1302, Anesthesia Intra-op, Routine Given 06/07/2024 12:47 PM EST 0.2 mg Given 06/07/2024 12:38 PM EST 0.2 mg Given 06/07/2024 12:36 PM EST 0.2 mg ondansetron (pf) (Zofran) (2 mg/mL) injection Intravenous, PRN, Starting on Thu06/07/24 at 1209, Until Thu06/07/24 at 1302, Anesthesia Intra-op, Routine Given 06/07/2024 12:09 PM EST 4 mg PHENYLephrine (Laurent-Synephrine) (80 mcg/mL) in sodium chloride 0.9% 250 mL infusion Intravenous, CONTINUOUS PRN, Starting on Thu06/07/24 at 0749, Until Thu06/07/24 at 1302, Anesthesia Intra-op, Routine Rate/Dose Change 06/07/2024 12:07 PM EST 20 mcg/min 15 mL/hr Rate/Dose Change 06/07/2024 11:55 AM EST 10 mcg/min 7.5 mL /hr Rate/Dose Change 06/07/2024 11:48 AM EST 15 mcg/min 11.25 mL/hr PHENYLephrine in NS (PF) (LAURENT-SYNEPHRINE) 0.8 mg/10 mL (80 mcg/mL) multi-dose injection Syringe Intravenous, PRN, Starting on Thu06/07/24 at 0820, Until Thu06/07/24 at 1302, Anesthesia Intra-op, Routine Given 06/07/2024 10:29 AM EST 80 mcg Given 06/07/2024 9:15 AM EST 80 mcg Given 06/07/2024 8:20 AM EST 80 mcg propofoL (Diprivan) (10 mg/mL) infusion Intravenous, CONTINUOUS PRN, Starting on Thu06/07/24 at 0749, Until Thu06/07/24 at 1302, Anesthesia Intra-op, Routine Rate/Dose Change 06/07/2024 11:32 AM EST 40 mcg/kg/min 19.656 mL/hr Rate/Dose Change 06/07/2024 11:07 AM EST 35 mcg/kg/min 17. 199 mL/hr Rate/Dose Change 06/07/2024 10:38 AM EST 40 mcg/kg/min 19. 656 mL/hr propofoL (Diprivan) 10 mg/mL bolus injection (Anesthesia) Intravenous, PRN, Starting on Thu06/07/24 at 0748, Until Thu06/07/24 at 1302, Anesthesia Intra-op Given 06/07/2024 11:40 AM EST 30 mg Given 06/07/2024 10:24 AM EST 20 mg Given 06/07/2024 10:21 AM EST 20 mg rocuronium (Zemuron) (10 mg/mL) multi-dose injection Intravenous, PRN, Starting on Thu06/07/24 at 0748, Until Thu06/07/24 at 1302, Anesthesia Intra-op, Routine Given 06/07/2024 11:09 AM EST 10 mg Given 06/07/2024 9:51 AM EST 20 mg Given 06/07/2024 8:39 AM EST 10 mg sugammadex (Bridion) 100 mg/mL injection Intravenous, PRN, Starting on Thu06/07/24 at 1231, Until Thu06/07/24 at 1302, Anesthesia Intra-op, Routine Given 06/07/2024 12:31 PM EST 200 mg documented in this encounter Care Teams United [place] Marshal Relationship Specialty Start Date End Date Melvin Alarcon MD [address] [place] [address] PCP - General Internal Medicine 07/22/23 documented as of this encounter
--- OUTSIDE RECORDS SUMMARY | 2024-08-01 15:25 | XMS_ITS | Encounter Summary ---
Author Organization [facility] [place] [address] Care Team Providers Care Artists' Booking Representative Name Role Phone Melvin Alarcon MD Primary Care Provider [phone] Encounter Details Date Type Department Care Team (Late st Contact Info) Description 02/25/2024 Orders Only [place] [address] Georgette Rocha APRN [facility] [place] [address] Abdominal aortic aneurysm (AAA) without rupture, unspecified part; Status post endovascular aneurysm repair (EVAR) Social History Tobacco Use Types Packs/Day Years [...] AM EDT Office Visit Radiation Oncology at [address] [phone] Jesse Mcmahan MD [facility] [place] [address] documented as of this encounter Visit Diagnoses Diagnosis Abdominal aortic aneurysm (AAA) without rupture, unspecified part Status post endovascular aneurysm repair (EVAR) documented in this encounter Care Teams Artists' Booking Representative Relationship Specialty Start Date End Date Melvin Alarcon MD [address] [place] [address] PCP - General Internal Medicine 07/22/23 documented as of this encounter
--- OUTSIDE RECORDS SUMMARY | 2024-08-01 15:25 | XMS_ITS | Encounter Summary ---
Author Organization [facility] [place] [address] Care Team Providers Care U.S. Revenue Officer Name Role Phone Melvin Alarcon MD Primary Care Provider [phone] Reason for Visit * Reason Onset Date Comments Questions 01/15/2024 Encounter Details Date Type Department Care Team (Late st Contact Info) Description 01/15/2024 Telephone [place] [address] Bree Mantilla RN Questions Social History Tobacco Use Types Packs/Day Years [...] Telephone Encounter - Bree Mantilla RN - 01/15/2024 3:43 PM EDT Call returned to pt regarding message left with the call center. Pt was informed that per Dr. Frost, Yes, he can stop as a trial. Please contact if flaring. Pt verbalized understanding and wanted to let Dr. Frost know that when he was just on leflunomide he did not notice any improvement in his symptoms. He has noticed improvement since starting Taltz. * Telephone Encounter - Bree Mantilla RN - 01/15/2024 3:28 PM EDT Copied from [facility] #[id number]. Topic: Specialty Dept CRMs - Generic Call >> Jan 15, 2024 3:10 PM Martir Felder wrote: Specialist: Tanner Frost MD Relationship (if other than patient-full name): Sebastian Wyatt, self Reason for Call: Patient called back to check on his request to stop Leflunamide (see signed Telephone encounter of 12/30/23). He reports his thinks it might be causing him stomach issues, diarrhea, and cough. Patient's cell is [phone] in case he does not answer his home phone. documented in this encounter Plan of Treatment Upcoming Encounters Date Type Department Care Team (Late st Contact Info) Description 05/24/2025 11:00 AM EDT Office Visit Radiation Oncology at [address] [phone] Jesse Mcmahan MD [facility] [place] [address] documented as of this encounter Visit Diagnoses Not on filedocumented in this encounter Care Teams U.S. Revenue Officer Relationship Specialty Start Date End Date Melvin Alarcon MD [address] [place] [address] PCP - General Internal Medicine 07/22/23 documented as of this encounter
--- OUTSIDE RECORDS SUMMARY | 2024-08-01 15:25 | XMS_ITS | Encounter Summary ---
Author Organization [facility] [place] [address] Care Team Providers Care Gun Club Manager Name Role Phone Melvin Alarcon MD Primary Care Provider [phone] Encounter Details Date Type Department Care Team (Late st Contact Info) Description 03/21/2024 Telephone [place] [phone] Sky Beckman Social History Tobacco Use Types [...] * Telephone Encounter - Sky Beckman - 03/21/2024 9:12 AM EDT Patient called with questions about upcoming plan for surgery, scheduled telehealth appointment forpatient. documented in this encounter Plan of Treatment Upcoming Encounters Date Type Department Care Team (Late st Contact Info) Description 05/24/2025 11:00 AM EDT Office Visit Radiation Oncology at [address] [phone] Jesse Mcmahan MD [facility] DR [place] [address] documented as of this encounter Visit Diagnoses Not on filedocumented in this encounter Care Teams Gun Club Manager Relationship Specialty Start Date End Date Melvin Alarcon MD [address] [place] [address] PCP - General Internal Medicine 07/22/23 documented as of this encounter
--- OUTSIDE RECORDS SUMMARY | 2024-08-01 15:25 | XMS_ITS | Encounter Summary ---
Author Organization [facility] [place] [address] Care Team Providers Care Owner Professional Engineer Name Role Phone Melvin Alarcon MD Primary Care Provider [phone] Encounter Details Date Type Department Care Team (Late st Contact Info) Description 12/30/2023 Tele[place] [address] Radha Reese RN Social History Tobacco Use Types Packs/Day [...] encounter Miscellaneous Notes * Telephone Encounter - Radha Reese RN - 12/30/2023 12:00 PM EDT RTC to the patient,spoke to spouse Laura. The message was for Dr Margot MD. To inform him that patient was advised by his Primary to stop the Leflunamide. This was due to Thyroid, increased BP. And not sure this was working. Ever since he has been on Taltz he is well, feels very successful. Message sent to the Provider to update. * Telephone Encounter - Radha Reese RN - 12/30/2023 11:55 AM EDT Copied from [facility] #[id number]. Topic: Specialty Dept CRMs - Generic Call >> December 30, 2023 9:36 AM Jamal Regalado wrote: Specialist: Tanner Frost MD Relationship (if other than patient-full name): Patient Reason for Call: Patient calling in regards to his leflunomide. He was advised by his other specialist to discuss stopping this medication due to issues with thyroid and blood pressure. Please call to advise documented in this encounter Plan of Treatment Upcoming Encounters Date Type Department Care Team (Late st Contact Info) Description 05/24/2025 11:00 AM EDT Office Visit Radiation Oncology at [address] [phone] Jesse Mcmahan MD [facility] [address] [place] [address] [place] [address] documented as of this encounter Visit Diagnoses Not on filedocumented in this encounter Care Teams Owner Professional Engineer Relationship Specialty Start Date End Date Melvin Alarcon MD [address] [place] [address] PCP - General Internal Medicine 07/22/23 documented as of this encounter
--- OUTSIDE RECORDS SUMMARY | 2024-08-01 15:25 | XMS_ITS | Encounter Summary ---
Author Organization [facility] [place] [address] Care Team Providers Care Reliability Technicians Name Role Phone Melvin Alarcon MD Primary Care Provider [phone] Reason for Visit * Reason Onset Date Comments Follow-up 10/21/2023 Encounter Details Date Type Department Care Team (Late st Contact Info) Description 10/21/2023 Telephone [place] [phone] Trey David, RN Follow-up Social History Tobacco Use Types Packs/Day Years [...] encounter Miscellaneous Notes * Telephone Encounter - Maxi Badillo - 10/30/2023 11:50 AM EDT Patient called in looking to speak with a nurse - stated that there was misscomunication when his called in for him. Patient stated that he wants to take the ixekizumab medication, but [facility] Patient stated that he just got the shipment for these m edications today, and would like to start taking them. Patient wanted to speak with a nurse first, as he has not had any medication for about a month while waiting for this delivery. Please call patient to assist I spoke with Salvador and he has received first part of Taltz loading dose. We discussed issue with [facility] and Salvador advised he called and threatened to marko [facility] and then he received a call right back from [facility]. Salvador will call [facility] back to make sure they get him the second part of the Taltz and then maintenance dose on time. He will start the Taltz today. * Telephone Encounter - Trey David RN - 10/23/2023 3:40 PM EDT Ama Martin, [facility] sent to Trey David RN; Tanner Frost MD Cc: Xiomara Goodman Caller: Unspecified (3 days ago, 4:47 PM) Laura is going to call on this! We haven't heard from Salvador about this issue, but we'll reach out to him when we get to the bottom of this. Ama Philippe * Telephone Encounter - Trey David RN - 10/23/2023 12:51 PM EDT Copied from [facility] #[id number]. Topic: Specialty Dept CRMs - Generic Call >> Oct 23, 2023 10:52 AM Paloma Regalado wrote: Specialist: Tanner Frost MD Relationship (if other than patient-full name): laura Reason for Call: Laura of patient calling to state that the patient no longer wants to take ixekizumab (Taltz Autoinjector, 3 Pack,) 80 mg/mL Auto- Injector or leflunomide (Arava) 10 mg tablet. Laura stated that the patient would like to go back on methotrexate. Please call to advise. ++++++++++++++++++++++++++++++++++++++++++++++++++++++++++++++++++++++++++++++++ ++++++++++++++++++++ ++++++++++++++++++++++++++++++++++++++++++++++++++++++++++++++++++++++++++++++++ ++++++++++++++++++++++++++++++++++ RTC to Sebastian, he reports that he has still not received the Taltz, states he has had multiple conversations with [facility] and he can no longer continue to fill Taltz there. States he spoke with Specialty Pharmacy and there is nothing they can do but offered to stay on phone with him when he called [facility]. States he is done with [facility]. Sebastian wants to go back to the Methotrexate and wonders if he can continue the Arava when taking the Methotrexate? Sebastian just started taking 2 tabs daily of the Arava today. I advised Sebastian that I will check with Specialty Pharmacy and his provider on moving forward with returning to MTX or see if Specialty pharmacy can help him any further? Advised I will call back when I know more. * Telephone Encounter - Trey David RN - 10/21/2023 8:34 AM EDT Copied from [facility] #[id number]. Topic: Specialty Dept CRMs - Generic Call >> Oct 20, 2023 4:47 PM Aneudy Regalado wrote: Specialist: Dr. Frost Relationship (if other than patient-full name): Rowena - [employer] Reason for Call: calling to verify the dispense quantity and the dosage for the Taltz injector. RefNumber [id number] documented in this encounter Plan of Treatment Upcoming Encounters Date Type Department Care Team (Late st Contact Info) Description 05/24/2025 11:00 AM EDT Office Visit Radiation Oncology at [address] [phone] [facility] [place] [address] documented as of this encounter Visit Diagnoses Not on filedocumented in this encounter Care Teams Reliability Technicians Relationship Specialty Start Date End Date Melvin Alarcon MD [address] [place] [address] PCP - General Internal Medicine 07/22/23 documented as of this encounter
--- OUTSIDE RECORDS SUMMARY | 2024-08-01 15:25 | XMS_ITS | Encounter Summary ---
Author Organization [facility] [place] [address] Care Team Providers Care Fruit Express Agent Name Role Phone Melvin Alarcon MD Primary Care Provider [phone] Encounter Details Date Type Department Care Team (Late Contact Info) Description 10/07/2023 [place] [address] Tanner Frost MD [facility] [address] Social History Tobacco Use Types Packs/Day Years [...] AM EDT Office Visit Radiation Oncology at [address] [phone] Jesse Mcmahan MD [facility] [place] [address] documented as of this encounter Visit Diagnoses Not on filedocumented in this encounter Care Teams Fruit Express Agent Relationship Specialty Start Date End Date Melvin Alarcon MD [address] [place] [address] PCP - General Internal Medicine 07/22/23 documented as of this encounter
--- OUTSIDE RECORDS SUMMARY | 2024-08-01 15:25 | XMS_ITS | Encounter Summary ---
Author Organization [facility] Address [facility] [place] [address] Care Team Providers Care Manager Of Applications Development Name Role Phone Melvin Alarcon MD Primary Care Provider Encounter Details Date Type Department Care Team (Late Contact Info) Description 08/12/2023 Telephone Radiation Oncology at [address] [phone] Jerrica López Social History Tobacco Use Types Packs/Day Years [...] encounter Miscellaneous Notes * Telephone Encounter - Jerrica López - 08/12/2023 11:36 AM EST I called [facility] to see if they could push the images of his ct/scan. I had to leave a message. The report is in the file documented in this encounter Plan of Treatment Upcoming Encounters Date Type Department Care Team (Late Contact Info) Description 05/24/2025 11:00 AM EDT Office Visit Radiation Oncology at [address] [phone] Jesse Mcmahan MD [facility] [place] [address] documented as of this encounter Visit Diagnoses Not on filedocumented in this encounter Care Teams Manager Of Applications Development Relationship Specialty Start Date End Date Melvin Alarcon MD [address] [place] [address] PCP - General Internal Medicine 07/22/23 documented as of this encounter
--- OUTSIDE RECORDS SUMMARY | 2024-08-01 15:25 | XMS_ITS | Encounter Summary ---
[place] [address] Care Team Providers Care Bight Maker Name Role Phone Melvin Alarcon MD Primary Care Provider [phone] Reason for Visit * Reason Comments Prior Authorization Taltz 80mg/ml Autoin jector Encounter Details Date Type Department Care Team (Late st Contact Info) Description 06/16/2024 Specialty [place] [phone] Yasmin Pedroza, JABIER Social History Tobacco Use Types Packs/Day Years Used Date Smoking Tobacco: Former Cigarettes 1 38 0 08/06/1973 - 08/06/2011 Smokeless Tobacco: Never Alcohol Use Standard Drinks/Week Comments Yes 2 (1 standard drink = 0.6 oz pure alcohol) rarely one glass of wine occasionally, one every other day [facility] Inpatient Questions Answer Date Recorded Does [...] of this encounter Progress Notes * Yasmin Pedroza CPHT - 06/16/2024 10:51 AM EST [facility], Medication Prior Authorization Submission Patient: Sebastian Wyatt Patient : [id number] Patient Address: [address] [address] (home) Medication Name: TALTZ AUTOINJECTOR 80 MG/ML SUBCUTANEOUS Medication ID: Subscriber Insurance: [id number] ([facility]) Subscriber Insurance Comment: Fax: Physician: KALLIE GIL Physician Comment: Sent Via: [facility] Linares: Linares: [id number] Ref/Case/PA#: Medication Strength Frequency Requested: Inject the contents of one pen subcutaneously every 28 days Qty/Day Supply: 08/30 New Start: Renewal Diagnosis & ICD-10 Code: Psoriatic Arthritis L40.50 Patient Notified: Yes Submission Notes: - Reauthorization Yasmin Pedroza CPHT 06/16/24 10:52 AM * Yasmin Pedroza CPHT - 06/16/2024 10:51 AM EST [facility], Prior Authorization Approval Medication Name: TALTZ AUTOINJECTOR 80 MG/ML SUBCUTANEOUS Medication ID: Approval Dates: 05/16/2024 to 06/16/2025 Insurance requirements/notes: - Patient fills with [facility]. Other Notes: None Case/Reference #: [id number] Approval notification Received via: [facility] Copay: Unknown - must fill with outside pharmacy Copay assistance: None Copay Notes: NA Insurance mandated Pharmacy: [facility] Fillable at D Specialty Pharmacy: No Patient Notified: Yes Pharmacy staff will be reaching out to the patient to inform them of their medication's approval bytheir insurance. If applicable, a pharmacist will speak with the patient to offer our specialty pharmacy services and to arrange delivery of their medication. Yasmin Pedroza CPHT 06/17/24 9:53 AM documented in this encounter Plan of Treatment Upcoming Encounters Date Type Department Care Team (Late st Contact Info) Description 05/24/2025 11:00 AM EDT Office Visit Radiation Oncology at [address] [phone] Jesse Mcmahan MD [facility] [place] [address] documented as of this encounter Visit Diagnoses Not on filedocumented in this encounter Care Teams Bight Maker Relationship Specialty Start Date End Date Melvin Alarcon MD [address] [place] [address] PCP - General Internal Medicine 07/22/23 documented as of this encounter
--- OUTSIDE RECORDS SUMMARY | 2024-08-01 15:25 | XMS_ITS | Encounter Summary ---
Author Organization [facility] [place] [address] Care Team Providers Care Office Bookkeeper Name Role Phone Melvin Alarcon MD Primary Care Provider [phone] Encounter Details Date Type Department Care Team (Late st Contact Info) Description 06/01/2024 10:00 AM EDT Office Visit Radiation Oncology at [address] [phone] Jesse Mcmahan MD [facility] [place] [address] Cancer of base of tongue Social History [...] Sign Reading Time Taken Comments Blood Pressure 136/86 06/01/2024 10:22 AM EDT Pulse 78 06/01/2024 10:22 AM EDT Temperature 37 ??C (98.6 ??F) 06/01/2024 10: 22 AM EDT Respiratory Rate 18 06/01/2024 10:2 2 AM EDT Oxygen Saturation 98% 06/01/2024 10: 22 AM EDT Inhaled Oxygen Concentration - - Weight 94.6 kg (208 lb 9.6 oz) 06/01/20 10:22 AM EDT with shoes Height - - Body Mass Index 29.93 03/11/2024 10:27 AM EDT documented in this encounter Progress Notes * Norma Duff MD - 06/01/2024 1:30 PM EDT Radiation Oncology Follow Up Note Patient Name: Sebastian Wyatt Primary MD: Melvin Alarcon MD Referring MD: Melvin Alarcon Other Involved Physicians: Butch Catalan Oncologic History: Squamous cell carcinoma of L BOT, 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 1 PPD x 38 yrs. Quit 08/2011. Developed odynophagia early 11/2011, abx did not improve, . Referred to ENT. He does note some coughing in the morning ove the past year. Stagin12/09/11 CT H&N with contrast ([facility]): Mixed attenuation mass with lare low density areas suggesting necrotic change present deep to anterior aspect L SCM. Mass smoothly marginated, max 3.3 x 5.2 cm. 11/27/11 PET-CT ([facility]): Despite premedication, severe claustrophobia allowed this can [...] 04/06/12 Interval History: Sebastian Wyatt returns for 12 year follow-up appointment. Pain: No pain in head and neck. 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 Neck sx: Continues to feels left neck tightness but he continues to work with ROM exercises. Deniesnew lymphadenopathy. Mouth: Reports numbness along his left lateral tongue, unchanged. Significant tethering of tongue, limiting mobility. Xerostomia: Over the last 6 month, improve saliva production. Denies dysgeusia. Swallowing: Worsening swallowing function, sometimes food gets stuck in throat. Worse when his mouth is dry. Sensory deficits: Previously noted left hand numbness/tingling has improved but denies today. Dental: denies changes Physical Examination: Vitals: 06/01/24 1022 BP: 136/86 Patient Position: Sitting Pulse: 78 Resp: 18 Temp: 37 ??C (98.6 ??F) SpO2: 98% Weight: 94.6 kg (208 lb 9.6 oz) Physical Exam Constitutional: He is oriented [...] affect. His behavior is normal. Procedure: NPL: Flexible laryngoscopy was performed. The left naris was anesthetized with aerosolized lidocaine, and the laryngoscope was passed without difficulty. The nasopharynx was visualized and was without masses or lesions. The oropharynx, larynx, and piriform sinuses were visualized and notable for benign post radiation changes but were without masses or lesions. The vocal cords fully apposed. ECO Interval Imaging/Labs: no new imaging. Assessment/Plan: Squamous cell carcinoma of the BOT. MARCO. No new symptoms. He is having slowly worsening swallowing function. We discussed possible swallowing study if it continues to worsen and/or becomes more bothersome. 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 He continues to seea dentist regularly and we encouraged use of supplemental fluoride. Sebastian quit smoking ~13 years ago. We discussed a lung cancer screening LDCT per screening recommendations. Sebastian would be interested in getting this scan, unless he would already get chest imaging in the setting if endovascular abdominal aortic aneurysm. We will reach out to Dr. Gregorio to determine if we should order a LDCT. FU: follow up with radiation oncology per [facility] algorithm Could consider swallowing study if swallowing continues to worsen Consider LDCT for lung cancer screening. Will discuss with Dr. Gregorio prior to ordering. Monse Duff MD, MS PGY5 Attending Statement: I saw the patient with Dr. Duff and agree with the history, physical, assessment, and plan as stated. -Jesse Mcmahan MD, PhD documented in this encounter Plan of Treatment Upcoming Encounters Date Type Department Care Team (Late st Contact Info) Description 05/24/2025 11:00 AM EDT Office Visit Radiation Oncology at [address] [phone] Jesse Mcmahan MD [facility] [place] [address] documented as of this encounter Visit Diagnoses Diagnosis Cancer of base of tongue Malignant neoplasm of base of tongue documented in this encounter Care Teams Office Bookkeeper Relationship Specialty Start Date End Date Melvin Alarcon MD [address] [place] [address] PCP - General Internal Medicine 07/22/23 documented as of this encounter
--- OUTSIDE RECORDS SUMMARY | 2024-08-01 15:25 | XMS_ITS | Encounter Summary ---
Author [facility] [address] Care Team Providers Care Glass Breaker Name Role Phone Melvin Alarcon MD Primary Care Provider [phone] Encounter Details Date Type Department Care Team (Late st Contact Info) Description 06/08/2024 Telephone [place] [phone] Sky Beckman Social History Tobacco Use Types Packs/Day Years Used Date Smoking Tobacco: Former Cigarettes 1 38 0 08/06/1973 - 08/06/2011 Smokeless Tobacco: Never Alcohol Use Standard Drinks/Week Comments Yes 2 (1 standard drink = 0.6 oz pure alcohol) rarely one glass of wine occasionally, one every other day [facility] Inpatient Questions Answer Date Recorded Does [...] * Telephone Encounter - Sky Beckman - 06/08/2024 11:03 AM EST LVM to schedule per [employer]: CTA A/P - 4 week f/u (DARREL) Needs CT screening questions answered. documented in this encounter Plan of Treatment Upcoming Encounters Date Type Department Care Team (Late st Contact Info) Description 05/24/2025 11:00 AM EDT Office Visit Radiation Oncology at [address] [phone] Jesse Mcmahan MD [facility] [place] [address] documented as of this encounter Visit Diagnoses Not on filedocumented in this encounter Care Teams Glass Breaker Relationship Specialty Start Date End Date Melvin Alarcon MD [address] [place] [address] PCP - General Internal Medicine 07/22/23 documented as of this encounter
--- OUTSIDE RECORDS SUMMARY | 2024-08-01 15:25 | XMS_ITS | Encounter Summary ---
Author Organization [facility] Address [facility] [place] [address] Care Team Providers Care Live In Housekeeper Name Role Phone Melvin Alarcon MD Primary Care Provider [phone] Encounter Details Date Type Department Care Team (Late Contact Info) Description 06/07/2024 7:10 AM EST Ancillary Procedure Radiology Library at [facility] [place] [phone] Social History Tobacco Use Types Packs/Day Years Used Date Smoking Tobacco: Former Cigarettes 1 38 0 08/06/1973 - 08/06/2011 Smokeless Tobacco: Never Alcohol Use Standard Drinks/Week Comments Yes 2 (1 standard drink = 0.6 oz pure alcohol) rarely one glass of wine occasionally, one every other day [facility] Inpatient Questions Answer Date Recorded Does [...] AM EDT Office Visit Radiation Oncology at [address] [phone] Jesse Mcmahan MD [facility] [place] [address] documented as of this encounter Procedures Procedure Name Priority Date/Time Associated Diagnosis Comments IR OR VASC ANGIOGRAM IMAGE STORAGE ONLY Routine 06/07/2024 7:06 AM EST documented in this encounter Results * IR OR VASC Aniogram Image Storage Only (06/07/2024 7:06 AM EST) Narrative [facility] - 06/07/2024 7:06 AM EST This exam is auto-finalizing. It's purpose is for storage only. Brandon Gregorio MD IM FILM LIBRARY ORD ERABLES [place], [place] documented in this encounter Visit Diagnoses Not on filedocumented in this encounter Care Teams Live In Housekeeper Relationship Specialty Start Date End Date Melvin Alarcon MD [address] [place] [address] PCP - General Internal Medicine 07/22/23 documented as of this encounter
--- OUTSIDE RECORDS SUMMARY | 2024-08-01 15:25 | XMS_ITS | Encounter Summary ---
Author Organization [facility] Javier [place]izabethм[address] [address] Care Team Providers Care Extra Hand Name Role Phone Melvin Alarcon MD Primary Care Provider [phone] Reason for Visit * Reason Comments Medication Refill Encounter Details Date Type Department Care Team (Late st Contact Info) Description 04/12/2024 Refill [place] [address] Tanner Frost MD [facility] [place] [address] Social History Tobacco Use Types Packs/Day Years [...] encounter Miscellaneous Notes * Telephone Encounter - Sydnee Kidd RN - 04/12/2024 10:59 AM EDT Refill request received for ixekizumab (Taltz autoinjector), 80mg/ml, last ordered 03/10/24 inj 1 pen(80mg) SC on week 12, then Q 4 weeks there after, disp 1ml, RF 3 Refill request denies d/t requested too soon, there are refills. documented in this encounter Plan of Treatment Upcoming Encounters Date Type Department Care Team (Late st Contact Info) Description 05/24/2025 11:00 AM EDT Office Visit Radiation Oncology at [address] [phone] Jesse Mcmahan MD [facility] DR [place] [address] documented as of this encounter Visit Diagnoses Not on filedocumented in this encounter Care Teams Extra Hand Relationship Specialty Start Date End Date Melvin Alarcon MD [address] [place] [address] PCP - General Internal Medicine 07/22/23 documented as of this encounter
--- OUTSIDE RECORDS SUMMARY | 2024-08-01 15:25 | XMS_ITS | Encounter Summary ---
Author Organization [facility] [place] [address] Care Team Providers Care Base Wad Operator Adjuster Name Role Phone Mlevin Alarcon MD Primary Care Provider [phone] Encounter Details Date Type Department Care Team (Late Contact Info) Description 04/12/2024 Telephone [place] [address] Xavier Rizzo Social History Tobacco Use Types [...] AM EDT Office Visit Radiation Oncology at [address] [phone] Jesse Mcmahan MD [facility] [place] [address] documented as of this encounter Visit Diagnoses Not on filedocumented in this encounter Care Teams Base Wad Operator Adjuster Relationship Specialty Start Date End Date Melvin Alarcon MD [address] [place], [place] [address] PCP - General Internal Medicine 12/20/23 documented as of this encounter
--- OUTSIDE RECORDS SUMMARY | 2024-08-01 15:25 | XMS_ITS | Encounter Summary ---
Author Organization [facility] [address]avier johnson[address] [place] [address] Care Team Providers Care Montessori Toddler Teacher Name Role Phone Melvin Alarcon MD Primary Care Provider [phone] Encounter Details Date Type Department Care Team (Late Contact Info) Description 02/24/2024 Interpretation Only Radiology Library at [facility] [place] [address] Unknown None Social History Tobacco Use Types [...] AM EDT Office Visit Radiation Oncology at [address] [phone] Jesse Mcmahan MD [facility] [place] [address] documented as of this encounter Procedures Procedure [...] only. Unknown IMG FILM LIBRARY ORD ERABLES [place], [place] documented in this encounter Visit Diagnoses Not on filedocumented in this encounter Care Teams Montessori Toddler Teacher Relationship Specialty Start Date End Date Melvin Alarcon MD [address] [place] [address] PCP - General Internal Medicine 07/22/23 documented as of this encounter
--- OUTSIDE RECORDS SUMMARY | 2024-08-01 15:25 | XMS_ITS | Encounter Summary ---
Author Organization [facility] [place] [address] Care Team Providers Care Packaging Operator Name Role Phone Melvin Alarcon MD Primary Care Provider [phone] Encounter Details Date Type Department Care Team (Late Contact Info) Description 05/09/2024 Orders [place] [phone] Lashawn Alves RN Status post endovascular aneurysm repair (EVAR); [...] EDT Office Visit Radiation Oncology at [address] [phone] Jesse Mcmahan MD [facility] [place] [address] documented as of this encounter Results * Creatinine (06/07/2024 6:37 AM EST) Creatinine 0.89 0.80 - 1.50 mg/dL 06/07/2024 7:14 AM EST [facility] Est Glomerular Filtration Rate - Male 93 mL/min/1. 73 m?? 06/07/2024 7:14 AM EST [facility] Comment: This patient's estimated GFR [...] AM EST Dhara Prabhakar APRN CHEMISTRY ORDERABLES [facility] [place] [address] documented in this encounter Visit Diagnoses Diagnosis Status post endovascular aneurysm repair (EVAR) Abdominal aortic aneurysm (AAA) without rupture, unspecified part documented in this encounter Care Teams Packaging Operator Relationship Specialty Start Date End Date Melvin Alarcon MD [address] [place] [address] PCP - General Internal Medicine 07/22/23 documented as of this encounter
--- OUTSIDE RECORDS SUMMARY | 2024-08-01 15:25 | XMS_ITS | Encounter Summary ---
Author Organization [facility] [place] [address] Care Team Providers Care Nuclear Plant Technical Advisor Name Role Phone Melvin Alarcon MD Primary Care Provider [phone] Reason for Visit * Reason Onset Date Comments Medication Refill 03/10/2024 Encounter Details Date Type Department Care Team (Late st Contact Info) Description 03/10/2024 [place] [phone] Tanner Frost MD [facility] [place] [address] Social History Tobacco Use Types Packs/Day Years [...] Telephone Encounter - Radha Reese RN - 03/10/2024 11:04 AM EDT Taltz refill pended to the provider. * Telephone Encounter - Patience Alvarado - 03/10/2024 9:39 AM EDT MEDICATION: ixekizumab (Taltz Autoinjector) 80 mg/mL Auto-Injector DOSE: nject the contents of 1 pen (80mg) subcutaneously on week 12, then every 4 weeks thereafter. PHARMACY: [address] PHONE: [phone] documented in this encounter Plan of Treatment Upcoming Encounters Date Type Department Care Team (Late st Contact Info) Description 05/24/2025 11:00 AM EDT Office Visit Radiation Oncology at [address] [phone] Jesse Mcmahan MD [facility] [place] [address] documented as of this encounter Visit Diagnoses Not on filedocumented in this encounter Care Teams Nuclear Plant Technical Advisor Relationship Specialty Start Date End Date Melvin Alarcon MD [address] [place] [phone] PCP - General Internal Medicine 07/22/23 documented as of this encounter
--- OUTSIDE RECORDS SUMMARY | 2024-08-01 15:25 | XMS_ITS | Encounter Summary ---
[place] [address] Care Team Providers Care Cinder Pitman Name Role Phone Melvin Alarcon MD Primary Care Provider [phone] Encounter Details Date Type Department Care Team (Late Contact Info) Description 12/25/2023 Telephone [place] [phone] Radha Reese RN Social History Tobacco Use [...] Telephone Encounter - Radha Reese RN - 12/25/2023 11:02 AM EDT Images from the original note were not included. Scanned Document from [facility] requesting a new prescription for Taltz. Will copy in the encounter and pend to the Provider to review. documented in this encounter Plan of Treatment Upcoming Encounters Date Type Department Care Team (Late st Contact Info) Description 05/24/2025 11:00 AM EDT Office Visit Radiation Oncology at [address] [phone] Jesse Mcmahan MD [facility] [place] [address] documented as of this encounter Visit Diagnoses Not on filedocumented in this encounter Care Teams Cinder Pitman Relationship Specialty Start Date End Date Melvin Alarcon MD [address] [place] [address] PCP - General Internal Medicine 07/22/23 documented as of this encounter
--- OUTSIDE RECORDS SUMMARY | 2024-08-01 15:25 | XMS_ITS | Encounter Summary ---
Author Organization [facility] Address [facility] [place] [address] Care Team Providers Care Metal Handler Name Role Phone Unknown Primary Care Provider Quinn e Encounter Details Date Type Department Care Team (Late Contact Info) Description 07/07/2023 Telephone Radiation Oncology at [address] [phone] Jerrica López Social History Tobacco Use Types [...] * Telephone Encounter - Jerrica López - 07/07/2023 3:52 PM EST Patient called and need to cancel appt for 07/08/23 as he is having transportation issue's. He alsoneeds a morning appt. He is changed to 07/22/23 at 9am documented in this encounter Plan of Treatment Upcoming Encounters Date Type Department Care Team (Late Contact Info) Description 05/24/2025 11:00 AM EDT Office Visit Radiation Oncology at [address] [phone] Jesse Mcmahan MD [facility] [place] [address] documented as of this encounter Visit Diagnoses Not on filedocumented in this encounter Care Teams Metal Handler Relationship Specialty Start Date End Date Unknown None PCP - General 04/03/23 07/21/23 documented as of this encounter
--- OUTSIDE RECORDS SUMMARY | 2024-08-01 15:25 | XMS_ITS | Encounter Summary ---
Author Organization [facility] [place] [address] Care Team Providers Care Zoology Technical Officer Name Role Phone Melvin Alarcon MD Primary Care Provider [phone] Encounter Details Date Type Department Care Team (Late Contact Info) Description 05/16/2024 Telephone [place] [phone] Dianne Gilman Social History Tobacco Use Types Packs/Day Years [...] encounter Miscellaneous Notes * Telephone Encounter - Dianne Gilman - 05/16/2024 9:30 AM EDT I spoke with Mr. Wyatt - we have scheduled his surgery with Dr. Gregorio to be on 06/07/24. Letter sent. documented in this encounter Plan of Treatment Upcoming Encounters Date Type Department Care Team (Late st Contact Info) Description 05/24/2025 11:00 AM EDT Office Visit Radiation Oncology at [address] [phone] Jesse Mcmahan MD [facility] [place] [address] documented as of this encounter Visit Diagnoses Not on filedocumented in this encounter Care Teams Zoology Technical Officer Relationship Specialty Start Date End Date Melvin Alarcon MD [address] [place] [address] PCP - General Internal Medicine 07/22/23 documented as of this encounter
--- OUTSIDE RECORDS SUMMARY | 2024-08-01 15:26 | XMS_ITS | Encounter Summary ---
Author Organization [facility] [place] [address] Care Team Providers Care Street Inspector Name Role Phone Unknown Primary Care Provider Quinn e Encounter Details Date Type Department Care Team (Late Contact Info) Description 05/29/2023 Notes [place] [phone] Brandon Gregorio MD [facility] [place] [place] [address] Social History Tobacco Use Types Packs/Day Years [...] AM EDT Office Visit Radiation Oncology at [address] [phone] Jesse Mcmahan MD [facility] [place] [address] documented as of this encounter Visit Diagnoses Not on filedocumented in this encounter Care Teams Street Inspector Relationship Specialty Start Date End Date Unknown None PCP - General 04/03/23 07/21/23 documented as of this encounter
--- OUTSIDE RECORDS SUMMARY | 2024-08-01 15:26 | XMS_ITS | Encounter Summary ---
Author Organization [facility] [place] [address] Care Team Providers Care Plasterer Spray Gun Name Role Phone Bj Alves MD Primary Care Provider Encounter Details Date Type Department Care Team (Late Contact Info) Description 04/12/2021 2:15 PM EDT Ancillary Procedure Radiology Library at [facility] [place] [phone] Bj Alves MD [address] [place] [phone] Social History Tobacco Use Types Packs/Day Years [...] AM EDT Office Visit Radiation Oncology at [address] [phone] Jesse Mcmahan MD [facility] [place] [address] documented as of this encounter Procedures Procedure Name Priority Date/Time Associated Diagnosis Comments FILM LIBRARY STORAGE ONLY ULTRASOUND STUDY Routine 04/12/2021 2:10 PM EDT documented in this encounter Results * Film Library- Storage Only Ultrasound Study (04/12/2021 2:10 PM EDT) Narrative DEXTER LEZAMA - 04/12/2021 2:10 PM EDT This exam is auto-finalizing. It's purpose is for storage only. Bj Alves MD [facility] FILM LIBRARY ORD ERABLES Performing Organization Address City/State/[facility] Co de Phone Number [place], [place] documented in this encounter Visit Diagnoses Not on filedocumented in this encounter Care Teams Plasterer Spray Gun Relationship Specialty Start Date End Date Bj Alves MD [address] [place] [phone] PCP - General 06/25/10 04/02/23 documented as of this encounter
--- OUTSIDE RECORDS SUMMARY | 2024-08-01 15:26 | XMS_ITS | Encounter Summary ---
Author Organization [facility] [place] [address] Care Team Providers Care Indirect Sales Representative Name Role Phone Bj Alves MD Primary Care Provider [phone] Reason for Visit * Reason Comments Follow-up Psoriatic Arthritis Encounter Details Date Type Department Care Team (Latest Contact Info) Description 04/10/2022 1:00 PM EDT TH Visit (TeleHealth) [place] [phone] Tanner Frost MD [facility] [place] [address] Psoriasis with arthropathy Social History Tobacco Use [...] * Patient Instructions* Tanner Frost MD - 04/10/2022 1:00 PM EDT Continue MTX SC 1.0 cc Folic acid 1 mg daily Labs [facility] Continue celebrex QOD documented in this encounter Progress Notes * Tanner Frost MD - 04/10/2022 1:00 PM EDT This is a telemedicine visit that was performed with the originating site at that patients home address (please see electronic health record for applicable address) and the distant site at my [facility] office. Verbal consent to participate in telephone visit was obtained by Tanner Frost MD or the edieingassistant as documented in their note. This visit occurred during the Coronavirus (COVID-19) PublicHealth Emergency. I discussed with the patient the nature of our telemedicine visits, that: ??? I would evaluate the patient and recommend diagnostics and treatments based on my assessment ??? Our sessions are not being recorded and that personal health information is protected ??? Our team would provide follow up care in person if/when the patient needs it The concept of ???Telemedicine?? has been described to the patient. Patient has been informed of the anticipated benefits and possible risks. Patient understands the information provided regarding telemedicine, has had the opportunity to ask questions about this information, and all questions have been answered to patient's satisfaction. Patient consents for the use of telemedicine in his/her medical care and authorizes the transmission of any relevant medical information to providers and their staff involved inpatient's medical or mental health care. Referred here for psoriatic arthritis.Reports bilat ankle pain,continuous flare.Keeps getting worse.Takes Otezla.Tried MTX,not helping so stopped.Followed by onco as recovering throat CA.Taking Celebrex with good results I originally saw him as a new patient evaluation at [facility] for evaluation of psoriatic arthritis. He [...] referral was uncontrolled psoriatic arthritis on Otezla. Chief complaint: Psoriatic arthritis HPI: Salvador is a 67-year-old with complex past medical history including malignant [...] 2012. He is quite active in practicing [employer]. He attributed joint pains in ankles and [...] He was referred to Dr. Garcia in [place] and was seeing her approximately every 3 [...] Oncology last May. Current Outpatient Medications Medication ??? amlodipine (NORVASC) 10 mg tablet ??? apremilast (OTEZLA) 30 mg tablet ??? betamethasone dipropionate (DIPROLENE) 0.05 % ointment ??? celecoxib (CELEBREX) 100 mg capsule ??? Fenofibrate 54 mg Tab ??? fluticasone (FLONASE) 50 mcg/Actuation nasal spray ??? Multivitamins with Minerals Tab Allergies include: Patient has no known allergies. Past Medical History: Diagnosis Date ??? Cancer ([facility]) 2012 Throat tx with chemo and radiation [...] 3.3 x 5.2 cm. 11/27/[address] [facility]. Due to severe claustrophobia only performed from the lower chest to mid thighs. No distant metastases identified. 12/12/2011 EUA with triple endoscopy and biopsy. Enrolled on RTOG 1016 randomized to cetuximab arm. Received 70 Gy completed 04/06/2012. Follow-up with Dr. Mcmahan at [facility] 06/08/2019. Addressed the following ongoing symptoms: Dysphagia, [...] No recent lab testing. Gets then at [facility]. Most recent labs 09-20-2021. Reviewed at the time of the appointment Problems with the 1 CC syringe. Review of Systems: Constitutional: No fevers. Good [...] treated with topical therapy. He lives in [place] with his who is a PA at the [employer]. 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 Hobbies and interests: Mod[employer]-traditional, competitive/shooting. Hiking. Likes to workout. Exercise: Very active. No recent travel. Toxic exposures: Radiation therapy and chemotherapy and prior tobacco use. No new medications. No known arthropod contact ECM rash. Physical Examination: No vital signs due to the telemedicine nature of this appointment. General: Alert. Oriented. Sounds very energetic and upbeat. No distress. Appropriate speech thought and content Labs: 11/08/2019: TSH 15.30, previously 23.20 August [...] Lab Requisition on 03/23/2020 Component Date Value ??? COVID-19 Result 03/23/2020 NEGATIVE ??? Performing Lab 03/23/2020 [facility] ??? COVID-19 Result 03/23/2020 NEGATIVE Lab Requisition on 01/25/2020 Component Date Value ??? COVID-19 Result 01/25/2020 NEGATIVE ??? Performing Lab 01/25/2020 [facility] ??? COVID-19 Result 01/25/2020 NEGATIVE Diagnosis / Assessment: 1. Psoriasis with arthropathy ([facility]) Psoriatic arthritis. He continues to do well off of apremilast. He is currently on methotrexate subcutaneously administered 25 mg. Methotrexate monitoring labsare due. I again placed standing lab orders to be sent to [facility]. He will be getting his laboratory test done tomorrow. Due to the fact that the methotrexate as monotherapy appears to be working fairly well yet he does have some what sound to be inflammatory manifestations in the right hand small joints in his second and third fingers I would like to increase him to 25 mg or 1.0 cc SC. he had been evaluated for possibility of gout given the location of the infl ammatory manifestations. He was treated acutely for gout without much response. He was additionallyon allopurinol for period of time. His uric acid at one point was 9.5. Most recently 8.9. I do not know the full history of his gout evaluation. Both Rheumatology and Radiation Oncology have been reluctant to consider augmenting therapy with a biologic DMARD. By his report Radiation Oncology has seemed to be more receptive to this idea. I have considered starting sulfasalazine. I contacted Dr. Mcmahan who did not have a problem with this step. Plan: Continue methotrexate 1.0 cc subcutaneously administered. Get methotrexate monitoring labs tomorrow. Then every 3 months. Check uric acid level locally 42 minutes total spent on this visit including precharting, review of laboratory, imaging data, consulting other providers, telephone communication and documentation. documented in this encounter Plan of Treatment Upcoming Encounters Date Type Department Care Team (Late st Contact Info) Description 05/24/2025 11:00 AM EDT Office Visit Radiation Oncology at [address] [phone] Jesse Mcmahan MD [facility] [place] [address] documented as of this encounter Results * CRP, acute inflammation (01/02/2023 11:45 AM EDT) C-Reactive Protein 4.7 <=4.9 mg/L [facility] Blood 01/02/2023 11:4 5 AM EDT 01/02/2023 12:05 PM EDT Narrative Resulting Agency Comment Spec In Lab Tanner Frost MD CHEMISTRY ORDERABLES [facility] [place] [address] documented in this encounter Visit Diagnoses Diagnosis Psoriasis with arthropathy Psoriatic arthropathy documented in this encounter Care Teams Indirect Sales Representative Relationship Specialty Start Date End Date Bj Alves MD [address] [place] [phone] PCP - General 06/25/10 04/02/23 documented as of this encounter
--- OUTSIDE RECORDS SUMMARY | 2024-08-01 15:26 | XMS_ITS | Encounter Summary ---
Author Organization [facility] [address] Care Team Providers Care Mine Safety Director Name Role Phone Unknown Primary Care Provider Unavailabl e Encounter Details Date Type Department Care Team (Late st Contact Info) Description 04/30/2023 Telephone Vascular Surgery at [facility] [place] [phone] Zoe Salcedo Social History Tobacco Use Types Packs/Day Years [...] encounter Miscellaneous Notes * Telephone Encounter - Zoe Salcedo - 04/30/2023 3:56 PM EDT Salvador Daly has called today and wanted to know when his next apt would be with some testing of an ultrasound, I told him that you had not seen him since 03-04-2019. I offered him an apt for consult with youand he declined didn't want to drive 2 hours with doing any testing on the same day. Please call or email [email or web address] 04-30-23 sg documented in this encounter Plan of Treatment Upcoming Encounters Date Type Department Care Team (Late st Contact Info) Description 05/24/2025 11:00 AM EDT Office Visit Radiation Oncology at [address] [phone] Jesse Mcmahan MD [facility] [place] [address] documented as of this encounter Visit Diagnoses Not on filedocumented in this encounter Care Teams Mine Safety Director Relationship Specialty Start Date End Date Unknown None PCP - General 04/03/23 07/21/23 documented as of this encounter
--- OUTSIDE RECORDS SUMMARY | 2024-08-01 15:26 | XMS_ITS | Encounter Summary ---
Author Organization [facility] [place] [address] Care Team Providers Care Fruit Bar Maker Name Role Phone Bj Alves MD Primary Care Provider Encounter Details Date Type Department Care Team (Late st Contact Info) Description 04/05/2021 Telephone [place] [phone] Salud Kenny, RN Social History Tobacco Use Types Packs/Day [...] encounter Miscellaneous Notes * Telephone Encounter - Salud Kenny RN - 04/05/2021 11:54 AM EDT This telegraphic typewriter operator chief fielded phone call from patient who is asking if it's acceptable to have an ultrasound done at [facility] (closer to where he lives) on 04/12/21. Last 3V appt was 03/04/19 with RTC in 6 months with repeat CTA (neither done). Patient states he does not want to have any more tests that involve radiation and prefers to have an ultrasound. Also does not feel there is a need at this time for a clinic appt with Dr. Gregorio. This telegraphic typewriter operator chief relayed info with Dr. Gregorio who states an ultrasound at [facility] will be fine. Patient informed of the above, and to make sure the ultrasound report and images are sent to [facility] for review by Dr. Gregorio. documented in this encounter Plan of Treatment Upcoming Encounters Date Type Department Care Team (Late st Contact Info) Description 05/24/2025 11:00 AM EDT Office Visit Radiation Oncology at [address] [phone] Jesse Mcmahan MD [facility] [place] [address] documented as of this encounter Visit Diagnoses Not on filedocumented in this encounter Care Teams Fruit Bar Maker Relationship Specialty Start Date End Date Bj Alves MD [address] [place] [phone] PCP - General 06/25/10 04/02/23 documented as of this encounter
--- OUTSIDE RECORDS SUMMARY | 2024-08-01 15:26 | XMS_ITS | Encounter Summary ---
Author Organization [facility] Address [facility] [place] [address] Care Team Providers Care Shot Blast Equipment Operator Name Role Phone Bj Alves MD Primary Care Provider [phone] Encounter Details Date Type Department Care Team (Late st Contact Info) Description 07/03/2020 Telephone Radiation Oncology at [address] [phone] Gayle Lara RN Social History Tobacco Use Types Packs/Day [...] encounter Miscellaneous Notes * Telephone Encounter - Gayle Lara RN - 07/03/2020 4:05 PM EST Background: Patient called and spoke with medical unit secretary reporting that he was having pain where the cancer was and requested appointment. Appointment made for 07/11/20. Telephone call to patient to assess pain. He reports that it is throat pain even with and just to the left of his quinones apple. It started about a week ago and was very mild. Today by the end of eating lunch it flared up to a 7/10. He describes it as sharp pain which is not typical of what it had been like prior. Since earlier afternoon it has settled down and he now rates it at level 2/10 with swallowing. He has not done anything to try to help this pain. I let him know that I will update with my note and will call back with any new recommendations prior to visit. In the meantime instructed him to call back with any worsening symptoms. He is in agreement with this plan and assures me that he will call back if anything changes. documented in this encounter Plan of Treatment Upcoming Encounters Date Type Department Care Team (Late st Contact Info) Description 05/24/2025 11:00 AM EDT Office Visit Radiation Oncology at [address] [phone] Jesse Mcmahan MD [facility] [place] [address] documented as of this encounter Visit Diagnoses Not on filedocumented in this encounter Care Teams Shot Blast Equipment Operator Relationship Specialty Start Date End Date Bj Alves MD [address] [place] [phone] PCP - General 06/25/10 04/02/23 documented as of this encounter
--- OUTSIDE RECORDS SUMMARY | 2024-08-01 15:26 | XMS_ITS | Encounter Summary ---
Author Organization [facility] [place] [address] Care Team Providers Care Perforator Typist Name Role Phone Bj Alves MD Primary Care Provider [phone] Encounter Details Date Type Department Care Team (Late Contact Info) Description 06/08/2020 Telephone [place] [phone] Samy Butler Social History Tobacco Use Types Packs/Day Years [...] encounter Miscellaneous Notes * Telephone Encounter - Samy Butler - 06/08/2020 8:28 AM EST Left a to schedule a new patient appointment. documented in this encounter Plan of Treatment Upcoming Encounters Date Type Department Care Team (Late st Contact Info) Description 05/24/2025 11:00 AM EDT Office Visit Radiation Oncology at [address] [phone] Jesse Mcmahan MD [facility] [place] [address] documented as of this encounter Visit Diagnoses Not on filedocumented in this encounter Care Teams Perforator Typist Relationship Specialty Start Date End Date Bj Alves MD [address] [place] [phone] PCP - General 06/25/10 04/02/23 documented as of this encounter
--- OUTSIDE RECORDS SUMMARY | 2024-08-01 15:26 | XMS_ITS | Encounter Summary ---
Author Organization [facility] [place] [address] Care Team Providers Care Manager Systems Name Role Phone Unknown Primary Care Provider Unavailabl e Encounter Details Date Type Department Care Team (Late st Contact Info) Description 06/02/2023 Refill [place] [address] Tanner Frost MD [facility] [place] [address] Social History Tobacco Use Types Packs/Day Years [...] as of this encounter Progress Notes * Ama Martin [facility] - 06/02/2023 8:40 AM EDT Clinical Management Plan: Transfer of Care Specialty Pharmacy Consultation; Ama Martin RPH Comprehensive Medication Management (CMM) Sebastian Wyatt [address] [facility] [address] Telephone Information: Work Phone Not on file. Is the patient transferring services to a different Specialty Pharmacy, discontinuing the medication, or modifying current Specialty services? Transferring Services (Optional) If modifying Specialty services, patient unenrolls from: Medication: Orencia Reason for discontinuation or transfer of services: Insurance mandate Approximate date of discontinuation, modification, or transfer of services: 06/02/2023 Patient's response to therapy: too soon to tell Summary of services provided by [facility]: Benefits investigation, medication access assistance, initial clinical assessment, follow up clinical assessment(s), refill management, care plan reviewprior to dispensing, and 23/02 access to an on-call specialty pharmacist Summary of on-going needs: None at this time Referral for additional services (if applicable): n/a Is patient aware of referral? no Instructions provided to patient about discharge/transfer: yes - patient aware he needs to fill with [facility] going forward Provider aware of discontinuation or transfer: Yes Patient understands no changes to current drug regimen were made at the appointment and that [facility] isproviding recommendations (summary located at top of note) for provider review and follow up. Of note, if transferring to another specialty pharmacy, a copy of patient's medication profile was offered to accepting pharmacy. Ama Martin RPH 06/02/23 8:41 AM documented in this encounter Miscellaneous Notes * Telephone Encounter - Tanner Frost MD - 06/02/2023 8:46 AM EDT Thank you! documented in this encounter Plan of Treatment Upcoming Encounters Date Type Department Care Team (Late st Contact Info) Description 05/24/2025 11:00 AM EDT Office Visit Radiation Oncology at [address] [phone] Jesse Mcmahan MD [facility] [place] [place] [address] documented as of this encounter Visit Diagnoses Not on filedocumented in this encounter Care Teams Manager Systems Relationship Specialty Start Date End Date Unknown None PCP - General 04/03/23 07/21/23 documented as of this encounter
--- OUTSIDE RECORDS SUMMARY | 2024-08-01 15:26 | XMS_ITS | Encounter Summary ---
Author Organization [facility] [place] [address] Care Team Providers Care Parts Counterperson Name Role Phone Unknown Primary Care Provider Juan Diegoabl e Encounter Details Date Type Department Care Team (Late st Contact Info) Description 05/29/2023 Refill [place] [address] Tanner Frost MD [facility] [place] [address] Social History Tobacco Use Types Packs/Day Years [...] EDT Office Visit Radiation Oncology at [address] [phone] Jesse Mcmahan MD [facility] [place] [address] documented as of this encounter Visit Diagnoses Not on filedocumented in this encounter Care Teams Parts Counterperson Relationship Specialty Start Date End Date Unknown None PCP - General 04/03/23 07/21/23 documented as of this encounter
--- OUTSIDE RECORDS SUMMARY | 2024-08-01 15:26 | XMS_ITS | Encounter Summary ---
Author Organization [facility] [place] [address] Care Team Providers Care Architectural Model Maker Name Role Phone Bj Alves MD Primary Care Provider [phone] Encounter Details Date Type Department Care Team (Late st Contact Info) Description 02/13/2022 [place] [phone] Radha Reese RN Social History Tobacco Use [...] Telephone Encounter - Radha Reese RN - 02/13/2022 9:10 AM EDT Patient calls to report needing a new prescription for the Methotrexate reflecting the current dose. Patient states Dr Frost has change him from 0.8 mL to 1.0 mL. This will need to go to the [facility] Last office note: Plan: ?? Continue off of apremilast ?? Continue methotrexate 0.8 cc subcutaneously administered. ?? Get methotrexate monitoring labs tomorrow. ?? Consider increasing to 1.0 cc methotrexate Message sent to the Provider to review. ?? documented in this encounter Plan of Treatment Upcoming Encounters Date Type Department Care Team (Late st Contact Info) Description 05/24/2025 11:00 AM EDT Office Visit Radiation Oncology at [address] [phone] Jesse Mcmahan MD [facility] [place] [address] documented as of this encounter Visit Diagnoses Not on filedocumented in this encounter Care Teams Architectural Model Maker Relationship Specialty Start Date End Date Bj Alves MD [address] [place] [phone] PCP - General 06/25/10 04/02/23 documented as of this encounter
--- OUTSIDE RECORDS SUMMARY | 2024-08-01 15:26 | XMS_ITS | Encounter Summary ---
Author Organization [facility] [place] [address] Care Team Providers Care Auto Detailer Name Role Phone Unknown Primary Care Provider Unavailabl e Reason for Visit * Reason Comments Specialty Pharmacy Review Adalimumab (Hu gloria) Pen 40mg/0.4mL Encounter Details Date Type Department Care Team (Late st Contact Info) Description 04/23/2023 Specialty [place] [phone] Xiomara Goodman, [facility] Social History Tobacco Use Types Packs/Day Years [...] encounter Progress Notes * Xiomara Goodman - 04/23/2023 9:43 AM EDT The - Specialty Pharmacy has completed a benefits investigation for Sebastian Wyatt to review their eligibility to fill at - Specialty Pharmacy. Per patient's medication list they are prescribed Humira and the medication is not able to be filled at the - Specialty Pharmacy. At this time insurance mandates this medication must be filled through [facility]. documented in this encounter Plan of Treatment Upcoming Encounters Date Type Department Care Team (Late st Contact Info) Description 05/24/2025 11:00 AM EDT Office Visit Radiation Oncology at [address] [phone] Jesse Mcmahan MD [facility] [place] [address] documented as of this encounter Visit Diagnoses Not on filedocumented in this encounter Care Teams Auto Detailer Relationship Specialty Start Date End Date Unknown None PCP - General 04/03/23 07/21/23 documented as of this encounter
--- OUTSIDE RECORDS SUMMARY | 2024-08-01 15:26 | XMS_ITS | Encounter Summary ---
Author Organization [facility] [address] Care Team Providers Care Fine Dining Server Name Role Phone Bj Alves MD Primary Care Provider [phone] Encounter Details Date Type Department Care Team (Late st Contact Info) Description 07/30/2020 Telephone [place] [phone] Sunita Chung Social History Tobacco Use Types Packs/Day Years [...] encounter Miscellaneous Notes * Telephone Encounter - Sunita Chung - 07/30/2020 2:34 PM EST Contacted [facility] to obtain authorization for patient to have a CTA at [facility]. This was approved: Authorization number # [id number] Valid 07/30-01/26/21 I have informed Laura, the Vascular corporate legal secretary who will work on scheduling. documented in this encounter Plan of Treatment Upcoming Encounters Date Type Department Care Team (Late st Contact Info) Description 05/24/2025 11:00 AM EDT Office Visit Radiation Oncology at [address] [phone] Jesse Mcmahan MD [facility] [place] [address] documented as of this encounter Visit Diagnoses Not on filedocumented in this encounter Care Teams Fine Dining Server Relationship Specialty Start Date End Date Bj Alves MD [address] [place] [phone] PCP - General 06/25/10 04/02/23 documented as of this encounter
--- OUTSIDE RECORDS SUMMARY | 2024-08-01 15:26 | XMS_ITS | Encounter Summary ---
Author Organization [facility] Javier johnsonмарина [place] [address] Care Team Providers Care Pipelayer Name Role Phone Bj Alves MD Primary Care Provider [phone] Encounter Details Date Type Department Care Team (Late Contact Info) Description 05/01/2021 Orders Only Radiation Oncology at [address] [phone] Marcelina Edwards RN Hypothyroidism, unspecified type; Psoriasis with arthropathy Social History Tobacco Use [...] EDT Office Visit Radiation Oncology at [address] [phone] Jesse Mcmahan MD [facility] [place] [address] documented as of this encounter Visit Diagnoses Diagnosis Hypothyroidism, unspecified type Psoriasis with arthropathy Psoriatic arthropathy documented in this encounter Care Teams Pipelayer Relationship Specialty Start Date End Date Bj Alves MD [address] [place] [phone] PCP - General 06/25/10 04/02/23 documented as of this encounter
--- OUTSIDE RECORDS SUMMARY | 2024-08-01 15:26 | XMS_ITS | Encounter Summary ---
Author Organization [facility] [place] [address] Care Team Providers Care Electrical Worker Name Role Phone Bj Alves MD Primary Care Provider [phone] Encounter Details Date Type Department Care Team (Late Contact Info) Description 09/05/2022 Ancillary Procedure Radiology Library at [facility] [place] [phone] Bj Alves MD [address] [place] [phone] Social History Tobacco Use Types Packs/Day Years [...] AM EDT Office Visit Radiation Oncology at [address] [phone] Jesse Mcmahan MD [facility] [place] [address] documented as of this encounter Procedures Procedure Name Priority Date/Time Associated Diagnosis Comments FILM LIBRARY STORAGE ONLY ULTRASOUND STUDY Routine 09/05/2022 12:00 AM EST documented in this encounter Results * Film Library- Storage Only Ultrasound Study (09/05/2022 12:00 AM EST) Narrative [facility] - 01/09/2023 5:50 AM EDT This exam is auto-finalizing. It's purpose is for storage only. Bj Alves MD [facility] FILM LIBRARY ORD ERABLES Performing Organization Address City/State/[facility] Co de Phone Number [place], [place] documented in this encounter Visit Diagnoses Not on filedocumented in this encounter Care Teams Electrical Worker Relationship Specialty Start Date End Date Bj Alves MD [address] [place] [phone] PCP - General 06/25/10 04/02/23 documented as of this encounter
--- OUTSIDE RECORDS SUMMARY | 2024-08-01 15:26 | XMS_ITS | Encounter Summary ---
Author Organization [facility] [place] [address] Care Team Providers Care Chair Car Driver Name Role Phone Unknown Primary Care Provider Unavailabl e Reason for Visit * Reason Comments Medication Management Patient Education Abatacept (Orencia) 125mg/mL SOAJ Encounter Details Date Type Department Care Team (Late st Contact Info) Description 05/29/2023 Specialty [place] [phone] Ama Martin, [facility] Social History Tobacco Use Types [...] this encounter Progress Notes * Ama Martin [facility] - 05/29/2023 3:30 PM EDT Specialty Pharmacy Consultation; Ama Martin [facility] Comprehensive Medication Management (CMM): Specialty Consult, Opt Out Sebastian Wyatt Diagnosis: PsA Therapy Start Date: TBD Contact in person or via telephone: via telephone Mr. Sebastian Wyatt is a 68 y.o. (1955) male who was contacted in regard to specialty medication. Spoke with patient regarding Orencia. A review of the medication therapy was performed. The medication was refilled as scheduled, and all medication related questions and concerns were addressed. The specialty pharmacy staff will pend a new prescription to be sent to [facility] since he can only fill with us once. Is the patient willing to proceed with the Clinical Assessment? No Summary and Recommendations: Sebastian Wyatt was contacted to fill a prescription for Orencia. Allannicole was not working for himand Dr. Frost would like to switch to Orencia. We discussed Orencia back in January before the insurance denial, so he did not have many questions. We discussed Orencia is injected once every 7 days. Itdoes take a little while to work (3 to 4 months). I advised the patient to keep a journal of how he's feeling on a daily basis. He can still take celebrex and tylenol as needed to take the edge off. He does not want to take prednisone. He is aware that he can only fill Orencia once with Specialty pharmacy and we will send a new prescription to [facility] once we mail this out to him. No other questions at this time. Economic Assessment: Patient is agreeable to medication copay: Yes Copay Amount: $0 Day Supply: 28 Date Needed: nilay Therapy Assessment: Appropriate Therapy: Yes Current Medication Dosing/Route/Frequency: Orencia Clickject 125mg/mL sOAJ inject the contents of 1pen subcutaneously every 7 days. Additional equipment/supplies required: no Care Plan Reviewed and Approved by Pharmacist : Yes Problem List: Patient Active Problem List Diagnosis Code Cancer [...] lower urinary tract symptoms N40.1 Depression F32.A Medications Reviewed: Yes Medications reconciled: No Allergies Reviewed:Yes Allergies reconciled: No Pharmacist follow-up needed: Yes Informed patient of specialty pharmacy services: Yes (Optional) Patient unenrolls from routine specialty pharmacy services (Y/N): No (Optional) If yes, services unenrolled from: Welcome Packet and Rights and Responsibilities: Patient provided welcome packet/rights and responsibilities: Yes -Patient is aware a licensed pharmacist is available 24 hours a day, 7 days a week to discuss medication-related questions or concerns: Yes -Patient verbalizes understanding of the common side effect profile of their medication. The patient is able to call 911 or seek urgent care if signs/symptoms of allergy or harmful adverse reactions occur: Yes Patient understands no changes to current drug regimen were made at the appointment and that the pharmacist is providing recommendations (summary located at top of note) for provider review and follow up. Ama Martin RPH 05/29/23 3:34 PM documented in this encounter Plan of Treatment Upcoming Encounters Date Type Department Care Team (Late st Contact Info) Description 05/24/2025 11:00 AM EDT Office Visit Radiation Oncology at [address] [phone] Jesse Mcmahan MD [facility] [place] [address] documented as of this encounter Visit Diagnoses Not on filedocumented in this encounter Care Teams Chair Car Driver Relationship Specialty Start Date End Date Unknown None PCP - General 04/03/23 07/21/23 documented as of this encounter
--- OUTSIDE RECORDS SUMMARY | 2024-08-01 15:26 | XMS_ITS | Encounter Summary ---
Author [facility] [place] [address] Care Team Providers Care Dry Kiln Feeder Name Role Phone Bj Alves MD Primary Care Provider [phone] Reason for Visit * Reason Comments Specialty Pharmacy Review Apremilast (Ot ezla) 30mg Tablet Encounter Details Date Type Department Care Team (Late st Contact Info) Description 12/17/2021 Specialty [place] [phone] Xiomara Goodman, [facility] Social History Tobacco Use Types Packs/Day Years [...] encounter Progress Notes * Xiomara Goodman - 12/17/2021 11:59 PM EDT The - Specialty Pharmacy has completed a benefits investigation for Sebastian Wyatt to review their eligibility to fill at - Specialty Pharmacy. Per patient's medication list they are prescribed Apremilast (Otezla) and the medication is not able to be filled at the [facility] Specialty Pharmacy. The patient is not currently on Otezla. documented in this encounter Plan of Treatment Upcoming Encounters Date Type Department Care Team (Late st Contact Info) Description 05/24/2025 11:00 AM EDT Office Visit Radiation Oncology at [address] [phone] Jesse Mcmahan MD [facility] [place] [address] documented as of this encounter Visit Diagnoses Not on filedocumented in this encounter Care Teams Dry Kiln Feeder Relationship Specialty Start Date End Date Bj Alves MD [address] [place] [phone] PCP - General 06/25/10 04/02/23 documented as of this encounter
--- OUTSIDE RECORDS SUMMARY | 2024-08-01 15:26 | XMS_ITS | Encounter Summary ---
Author Organization [facility] [place] [address] Care Team Providers Care Inspector Sheet Metal Parts Name Role Phone Unknown Primary Care Provider Unavailabl e Reason for Visit * Reason Onset Date Comments Triage 05/27/2023 Encounter Details Date Type Department Care Team (Late st Contact Info) Description 05/27/2023 Telephone [place] [phone] Bree Mantilla RN Triage Social History Tobacco Use Types Packs/Day Years [...] Telephone Encounter - Bree Mantilla RN - 05/28/2023 4:44 PM EDT Call returned to pt to inform him that per Dr. Frost, Prednisone 10 mg daily is an option. I will reach out to specialty pharmacy to see if we can try Orencia since Humira did not work. Pt verbalized understanding. Pt would not like to start prednisone at this time as he reacts poorlyto steroids (mood/behavior barrientos). Pt reported that he still has methylprednisolone left and if things become unbearable he will use the methylprednisolone he has on hand. * Telephone Encounter - Bree Mantilla RN - 05/28/2023 9:47 AM EDT Call returned to pt to inform him that per Dr. Frost, Please ask him to stop Humira. Not working. Orencia denied. Manny contraindicated with potential MACE. I would like to try him on Enbrel 50 mg weekly for PsA. Pt verbalized understanding. Pt would like to know if it would be possible to appeal his insurance's decision regarding Orencia now that he has tried Humira and it did not work for him.Pt does not want to do 3 months of Enbrel only for it also not to work. Pt is also wondering what he can do in the meantime while he is waiting for a new medication to be approved. PT is also requesting information regarding Enbrel. * Telephone Encounter - Bree Mantilla RN - 05/27/2023 3:39 PM EDT Call returned to pt regarding message left with the call center. Pt reported that he has been taking Humira Q2 weeks for about 3.5 months. Pt reported that he is having pain in the fingers and the knuckles of his right hand and it is spreading to his left hand a bit. Pt reported that he is also having pain in his heels, achilles tendons and a little bit in his knees. Pt reported that he has not gotten any relief from just Humira. Pt reported that to get any relief he also has to take Celebrex. Pt reported that his pain was bad enough last week that he had to take methylprednisolone as well. Pt is wondering if he should continue ion Humira for a bit longer or discontinue it? Pt was informed that his report will be forwarded to Dr. Frost for review and input. When this is available pt will be called back. Pt is agreeable to plan. * Telephone Encounter - Bree Mantilla RN - 05/27/2023 3:32 PM EDT Copied from [facility] #[id number]. Topic: Specialty Dept CRMs - Triage >> May 27, 2023 3:09 PM Mira Brandan wrote: Triage Message Specialist: Dr. Frost Relationship (if other than patient-full name): self Symptom: Pain in shoulder and fingers Has patient experienced symptom before yes If patient has experienced symptom before, when was the last time this occurred chronic conditiion Is patient currently having symptom yes When did symptom begin Additional Comments: patient states he's been taking humira in place of methotrexate to no effect. Patient states it is not helping his pain in his extremities and is now having pain in new locations. Please call to discuss. Patient calling back, please see encounter from 05/11/23 documented in this encounter Plan of Treatment Upcoming Encounters Date Type Department Care Team (Late st Contact Info) Description 05/24/2025 11:00 AM EDT Office Visit Radiation Oncology at [address] [phone] Jesse Mcmahan MD [facility] [place] [address] documented as of this encounter Visit Diagnoses Not on filedocumented in this encounter Care Teams Inspector Sheet Metal Parts Relationship Specialty Start Date End Date Unknown None PCP - General 04/03/23 07/21/23 documented as of this encounter
--- OUTSIDE RECORDS SUMMARY | 2024-08-01 15:26 | XMS_ITS | Encounter Summary ---
[place] [address] Care Team Providers Care Central Station Operator Name Role Phone Bj Alves MD Primary Care Provider [phone] Reason for Visit * Reason Comments Prior Authorization Orencia Clickject 12 5mg/ml SOAJ Encounter Details Date Type Department Care Team (Late st Contact Info) Description 01/05/2023 Specialty [place] [phone] Iman Banuelos, [facility] Social History Tobacco Use Types Packs/Day Years [...] as of this encounter Progress Notes * Iman Banuelos - 01/05/2023 10:03 AM EDT [facility], Medication Prior Authorization Submission Patient: Sebastian Wyatt Patient : [id number] Patient Address: [address] [address] (home) Medication Name: ORENCIA CLICKJECT 125 MG/ML SUBCUTANEOUS AUTO-INJECTOR Medication ID: [id number] Subscriber Insurance: [employer] ([facility]) Subscriber Insurance Comment: Phone: Fax: Physician: KALLIE GIL Physician Comment: Sent Via: [facility] L[place]res: Linares: [id number] Ref/Case/PA#: Medication Strength Frequency Requested: Inject the contents of one pen(125mg) subcutaneoulsy every7 days Qty/Day Supply: 11/28 New Start: New to Therapy Diagnosis & ICD-10 Code: 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 Adalimumab Product (Amjevita or Humira); B. Enbrel; C. Otezla; Javier. Rinvoq; Franky Porter SC; Betsy Lima [place]; Ana Wilson; Angelica Parada; I. Xeljanz/XR Abatacept (Orencia) subcutaneous is considered medically necessary for psoriatic arthritis when allthe following are met (A, B, C, and D): A. Individual is 18 years of age or older; B. Documentationof one of the following (i, ii, or ii): i. For non-axial disease, failure to one disease-modifying anti rheumatic drug (DMARD), unless contraindicated or intolerant; ii. For axial disease, failure to one disease-modifying anti-rheumatic drug (DMARD) or a nonsteroidal anti- inflammatory drug (NSAID),unless contraindicated or intolerant; or iii. Individual has already tried a biologic or targeted synthetic DMARD (tsDMARD) for psoriatic arthritis; C. Medication is being prescribed by, or in consult ation with a outsole tacker or reconditioner; and D. There is documentation the individual has had failure, contraindication, or intolerance to two of the following [all require prior authorization]:A. Adalimumab Product (Amjevita or Humira); B. Enbrel; C. Otezla; D. Rinvoq; E. Skyrizi SC; F. Stelara SC; G. Taltz; H. Tremfya; I. Xeljanz/XR. Continuation of abatacept (Orencia) subcutaneous is considered medically necessary for all covered diagnoses when initial criteria are met and beneficial response is demonstrated. Any other use is considered experimental, investigational or unproven, including the following (this list may not be all inclusive): 1. Ankylosing spondylitis; 2. Concurrent use with a biologic or with a targeted synthetic DMARD; 3.Inflammatory bowel disease (Crohn's disease, ulcerative colitis); and/or 4. Psoriasis. Patient Notified of Denial: Additional Information from insurance carrier. Please see below: None For any questions relating to this denial please reach out directly to your section's specialty pharmacist, or the specialty pharmacy team at [facility] Iman Banuelos 01/12/23 10:55 AM documented in this encounter Plan of Treatment Upcoming Encounters Date Type Department Care Team (Late st Contact Info) Description 05/24/2025 11:00 AM EDT Office Visit Radiation Oncology at [address] [phone] Jesse Mcmahan MD [facility] [place] [address] documented as of this encounter Visit Diagnoses Not on filedocumented in this encounter Care Teams Central Station Operator Relationship Specialty Start Date End Date Bj Alves MD [address] [place] [phone] PCP - General 06/25/10 04/02/23 documented as of this encounter
--- OUTSIDE RECORDS SUMMARY | 2024-08-01 15:26 | XMS_ITS | Encounter Summary ---
Author Organization [facility] [place] [address] Care Team Providers Care Telephone Clerk Name Role Phone Bj Alves MD Primary Care Provider [phone] Encounter Details Date Type Department Care Team (Late Contact Info) Description 09/01/2022 Orders [place] [address] Tamie Gordon LNA Abdominal aortic aneurysm (AAA) without rupture, unspecified [...] EDT Office Visit Radiation Oncology at [address] [phone] Jesse Mcmahan MD [facility] [place] [address] documented as of this encounter Visit Diagnoses Diagnosis Abdominal aortic aneurysm (AAA) without rupture, unspecified part Status post endovascular aneurysm repair (EVAR) documented in this encounter Care Teams Telephone Clerk Relationship Specialty Start Date End Date Bj Alves MD [address] [place] [phone] PCP - General 06/25/10 04/02/23 documented as of this encounter
--- OUTSIDE RECORDS SUMMARY | 2024-08-01 15:26 | XMS_ITS | Encounter Summary ---
Author Organization [facility] [address] Care Team Providers Care Punch Press Operator Helper Name Role Phone Bj Alves MD Primary Care Provider [phone] Encounter Details Date Type Department Care Team (Latest Contact Info) Description 01/02/2023 Travel Social History Tobacco Use Types Packs/Day [...] AM EDT Office Visit Radiation Oncology at [address] [phone] Jesse Mcmahan MD [facility] [place] [address] documented as of this encounter Visit Diagnoses Not on filedocumented in this encounter Care Teams Punch Press Operator Helper Relationship Specialty Start Date End Date Bj Alves MD [address] [place] [phone] PCP - General 06/25/10 04/02/23 documented as of this encounter
--- OUTSIDE RECORDS SUMMARY | 2024-08-01 15:26 | XMS_ITS | Encounter Summary ---
Author Organization [facility] [address] Care Team Providers Care Grey Goods Marker Name Role Phone Bj Alves MD Primary Care Provider [phone] Encounter Details Date Type Department Care Team (Late Contact Info) Description 07/10/2020 Orders Only [place] [address] Jesse Mcmahan MD [facility] [place] [address] Cancer of base of tongue Social History [...] AM EDT Office Visit Radiation Oncology at [address] [phone] Jesse Mcmahan MD [facility] [place] [address] documented as of this encounter Visit Diagnoses Diagnosis 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
--- OUTSIDE RECORDS SUMMARY | 2024-08-01 15:26 | XMS_ITS | Encounter Summary ---
Author Organization [facility] [place] [address] Care Team Providers Care Regulatory Affairs Internship Name Role Phone Unknown Primary Care Provider Unavailabl e Reason for Visit * Reason Comments Specialty Pharmacy Review Abatacept (Ore ncia) Clickject 125mg/mL Encounter Details Date Type Department Care Team (Late st Contact Info) Description 05/28/2023 Specialty [place] [phone] Xiomara Goodman, [facility] Social History Tobacco Use Types Packs/Day [...] encounter Progress Notes * Xiomara Goodman - 05/28/2023 2:18 PM EDT The [facility] has completed a benefits investigation for Sebastian Wyatt to review their eligibility to fill at [facility]. Per patient's medication list they are prescribed Orencia and the medication is limited to one time fill at the [facility]. documented in this encounter Plan of Treatment Upcoming Encounters Date Type Department Care Team (Late st Contact Info) Description 05/24/2025 11:00 AM EDT Office Visit Radiation Oncology at [address] [phone] [facility] [place] [address] documented as of this encounter Visit Diagnoses Not on filedocumented in this encounter Care Teams Regulatory Affairs Internship Relationship Specialty Start Date End Date Unknown None PCP - General 04/03/23 07/21/23 documented as of this encounter
--- OUTSIDE RECORDS SUMMARY | 2024-08-01 15:26 | XMS_ITS | Encounter Summary ---
Author Organization [facility] [place] [address] Care Team Providers Care Industrial Waste Treatment Technician Name Role Phone Bj Alves MD Primary Care Provider [phone] Reason for Visit * Reason Comments Specialty Pharmacy Review Apremilast (Ot ezla) 30 mg Tablet Encounter Details Date Type Department Care Team (Late st Contact Info) Description 04/10/2022 Specialty [place] [phone] Xiomara Goodman, [employer]AIL [employer] MERCHANDIS[employer] Social History Tobacco Use Types Packs/Day Years [...] encounter Progress Notes * Xiomara Goodman - 04/10/2022 10:20 AM EDT The - Specialty Pharmacy has completed a benefits investigation for Sebastian Wyatt to review their eligibility to fill at - Specialty Pharmacy. Per patient's medication list they are prescribed Apremilast (Otezla) and the medication is not able to be filled at the [facility]. Sebastian Wyatt is not currently on Otezla. documented in this encounter Plan of Treatment Upcoming Encounters Date Type Department Care Team (Late st Contact Info) Description 05/24/2025 11:00 AM EDT Office Visit Radiation Oncology at [address] [phone] Jesse Mcmahan MD [facility] [place] [address] documented as of this encounter Visit Diagnoses Not on filedocumented in this encounter Care Teams Industrial Waste Treatment Technician Relationship Specialty Start Date End Date Bj Alves MD [address] [place] [phone] PCP - General 06/25/10 04/02/23 documented as of this encounter
--- OUTSIDE RECORDS SUMMARY | 2024-08-01 15:26 | XMS_ITS | Encounter Summary ---
[place] [address] Care Team Providers Care Annual Greenhouse Manager Name Role Phone Bj Alves MD Primary Care Provider [phone] Reason for Visit * Reason Comments Medication Management Patient Education Abatacept (Orencia) 125mg/mL SOAJ Encounter Details Date Type Department Care Team (Late st Contact Info) Description 01/02/2023 Specialty Pharmacy [place] [address] Ama Martin, [facility] Social History Tobacco Use Types Packs/Day [...] this encounter Progress Notes * Ama Martin RPH - 01/02/2023 11:20 AM EDT Images from the original note were not included. Specialty Pharmacy Initial Consultation; Ama Martin RPH Comprehensive Medication Management (CMM) Sebastian Wyatt Diagnosis: Psoriatic Arthritis Therapy Start Date: TBD-pending insurance authorization Contact in person or via telephone: in person Mr. Sebastian Wyatt is a 67 y.o. (1955) male who was contacted in regard to specialty medication. Spoke with patient regarding Orencia. A review of the medication therapy was performed. The medication was pended to pursue prior authorization as scheduled, and all medication related questionsand concerns were addressed. We will send the prescription to the preferred pharmacy. Is the patient willing to proceed with the Clinical Assessment? Yes Summary and Recommendations: Sebastian Wyatt was seen in clinic for a review of Orencia for the treatment of psoriatic arthritis. Patient is aware of the prior authorization process and timeline and was given [facility] contact information for any questions. Patient was educated on the Orencia warnings and precautions including the risk of serious infections, hypersensitivity, and malignancy. Patient was educated on the importance of infection preventionincluding best practices for hand hygiene and the annual flu vaccine. Discussed the need to avoid live vaccines during treatment. Dose hold parameters were reviewed including suspected/known infection, prescribed antibiotic therapy, or scheduled surgery. Patient agrees to contact the clinic to review dose hold in these settings. Educated patient on the potential side effects of Orencia including injection site reaction, headache, nausea, rash, and infections such as URTI/sinusitis. Discussed with patient that it may take 3-4 months to experience the full benefit of Orencia. A review of dosing, storage, and administration was completed. Patient was educated on the dosing schedule, 125 mg subcutaneously once weekly. Patient was made aware that Orencia must be stored in the refrigerator and remains stable at room temperature for 8 hours. Demonstration of injection technique was performed using [facility] training kit. Patient was advised on proper site rotation, site sterilization, and allowing the medication to reach room temperature prior to injection. Patient was able to demonstrate appropriate injection technique and required no remedial counseling. Patient was encouraged to schedule an injection teaching appointment if they prefer to have first injection completed with medical oversight and was directed to view additional online video resources if needed. Patient will be provided with a sharps container and disposal of pens was discussed. I gave the patient the phone number to call [facility] to sign up for the co-pay card. Clinic follow-up needed: yes - in [address] Frost Allergies and Drug intolerance: No Known Allergies Problem List: Patient Active Problem List Diagnosis Code ??? Cancer of base of tongue C01 ??? Obesity (BMI 30.0-34.9) E66.9 ??? Hyperlipidemia E78.5 ??? Hypertension I10 ??? Glucose intolerance (impaired glucose tolerance) R73.02 ??? Hypothyroidism E03.9 ??? GERD (gastroesophageal reflux disease) K21.9 ??? 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 LIBERTY on CPAP G47.33, Z99.89 ??? Anxiety F41.9 ??? Back pain, chronic M54.9, G89.29 ??? Thalassemia minor ??? Claustrophobia F40.240 ??? 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 DIFFICULT AIRWAY T88.4XXA ??? Dysphagia, unspecified(787.20) R13.10 ??? 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 AAA (abdominal aortic aneurysm) without rupture I71.40 ??? Benign prostatic hyperplasia with lower urinary tract symptoms N40.1 ??? Depression F32.A Special Dietary or Hydration Requirements: no Medication Reconciliation Discrepancies (compared to [facility] med list) -none Medication List: Current Outpatient Medications Medication Sig Note Dispense Refill ??? docusate sodium (Colace) 100 mg capsule Take 1 capsule every day by oral route as needed. ??? tadalafiL (Cialis) 5 mg tablet Take 5 mg by mouth. ??? metHOTREXate 25 mg/mL Solution Inject 1 mL subcutaneously once a week for 90 days. (Patient nottaking: Reported on 01/02/2023) 10 mL 1 ??? methylPREDNISolone (MedroL) 4 mg tablet Take 3 tablets by mouth daily (after breakfast). 45 tablet 2 ??? Syringe-Needle, Safety,Disp Un 1 mL 27 gauge x 1/2 [address] [facility].(Non-Drug; Combo Route) route every 7 days. (Patient not taking: Reported on 01/02/2023) 25 each 1 ??? Syringe with Needle, Disp, 1 mL 27 x 1/2 Syringe Inject 1 Syringe subcutaneously once a week. (Patient not taking: Reported on 01/02/2023) 25 each 3 ??? apremilast (OTEZLA) 30 mg Tablet Take 30 mg by mouth 2 times daily. (Patient not taking: Reported on 04/10/2022) 60 tablet 0 ??? dextrose 5% SolP 500 mL with metHOTREXate (PF) 25 mg/mL Soln Inject into the vein once. 07/02/2022: Taking .10ml ??? rosuvastatin (Crestor) 10 mg Tablet Take 10 mg by mouth daily. 01/27/2019: Every other day ??? tamsulosin (FLOMAX) 0.4 mg Capsule, Sust. Release 24 hr Take 0.4 mg by mouth daily. ??? betamethasone dipropionate (DIPROLENE) 0.05 % Ointment Apply topically 2 times daily. 01/27/2019: daily ??? celecoxib (CELEBREX) 100 mg capsule Take 100 mg by mouth every other day. ??? levothyroxine (SYNTHROID) 100 mcg tablet Take 175 mcg by mouth daily. Indications: Hypothyroidism 06/19/2021: 175mcg x 5 days/week, 200 mcg 2x/week ??? amlodipine-benazepril (LOTREL) 5-10 mg per capsule Take 1 capsule by mouth daily. 02/22/2015: . Current Facility-Administered Medications Medication Dose Route Frequency Provider Last Rate Last Admin ??? lidocaine (Xylocaine) 4 % (40 mg/mL) solution Topical (Top) Once PRN Jesse Mcmahan MD ??? lidocaine (Xylocaine) 4 % (40 mg/mL) solution Topical (Top) Q4H PRN Scarlett Costa MD Most Recent Vitals: Ht Readings from Last 1 Encounters: 07/11/20 177.8 cm (5' 10) Wt Readings from Last 3 Encounters: 01/02/23 96.5 kg (212 lb 12.8 oz) 07/02/22 98.2 kg (216 lb 6.4 oz) 06/19/21 98 kg (216 lb) Temp Readings from Last 3 Encounters: 01/02/23 36.3 ??C (97.3 ??F) (Temporal) 07/02/22 36.7 ??C (98.1 ??F) (Temporal) 06/19/21 36.5 ??C (97.7 ??F) (Temporal) BP Readings from Last 3 Encounters: 01/02/23 143/88 07/02/22 141/88 06/19/21 132/75 Pulse Readings from Last 3 Encounters: 01/02/23 69 07/02/22 75 06/19/21 73 There is no height or weight on file to calculate BMI. Pertinent Lab values: Lab Results Component Value Date NA 141 01/29/2019 K 3.8 01/29/2019 CL 104 01/29/2019 CO2 24 01/29/2019 BUN 14 01/29/2019 CREATININE 0.96 01/29/2019 GLUCOSE 115 01/29/2019 CALCIUM 9.5 01/29/2019 Lab Results Component Value Date ALT 18 07/06/2012 AST 18 07/06/2012 ALKPHOS 88 07/06/2012 BILITOT 0.6 07/06/2012 BILIDIR 0.1 07/06/2012 ALBUMIN 4.5 07/06/2012 PROT 8.0 07/06/2012 Lab Results Component Value Date WBC 13.0 (H) 01/29/2019 HGB 12.5 (L) 01/29/2019 HCT 40.2 (L) 01/29/2019 MCV 65.5 (L) 01/29/2019 PLATELET 205 01/29/2019 No results found for: HA1C There is no immunization history on file for this patient. Assessment and Recommendations: Patient Counseling Patient informed of specialty services: Yes Patient accepted offer to high school guidance counselor: select all, adherence/missed doses, cost of medications/cost implications, doses and administration, possible drug/OTC drug and food interactions, possible adverse side effects and management, pharmacy contact information, lab monitoring/follow up, possible drug/Rx drug interactions, safe handling, storage, and disposal, therapeutic rationale Medication Management Summary Topics discussed: reviewed medication changes since last visit, medication safety precautions education provided, drug interaction education provided to patient, safe handling, storage, and disposal discussed, possible adverse effects and management discussed, lab monitoring and follow-up discussed, cost of medications and cost implications discussed, adherence and missed doses discussed, effects of medication in patients over 65 years of age discussed, health goals discussed, monitoring medication discussed, over the counter products discussed, preventative care discussed, recommendations to doctor discussed, reminder to refill or bean picker medication discussed, self-monitoring discussed, start medication discussed, stop medication discussed, timing of medications discussed, vaccination discussed, lifestyle modification education, referral needs discussed Time spent: 16-30 min Treatment Outcomes 01/02/2023 1124 Disease progression: Moderate Reviewed in detail with patient: Dose appropriateness based on recommended standard dosing Current medication list including OTC medications Medication and disease problems Allergies Comorbid conditions/ Problem List Past adverse events if any Special needs of the patient including physical and cognitive limitations Goals of therapy and management strategies Warnings, precautions, and contraindications Side effects Drug-drug and drug-food interactions Administration instructions including dose, frequency and method Handling, storage, and disposal Verifying expiration dates on products before use Rotating medication inventory to use oldest product first Relevant lab data Treatments impact on disease Dose appropriateness based on recommended standard dosing schedule, including any variations from FDA approved dosing Patient verbalizes understanding and is able to read-back instructions on self-administration/injection, proper storage, drug stability, importance of adherence and management strategies, side effect avoidance and mitigation strategies, and interruptions in therapy: Yes Patient is aware a licensed pharmacist is available 24 hours a day, 7 days a week to discuss medication-related questions or concerns: Yes Patient verbalizes understanding of the common side effect profile of their medication. The patient is able to call 911 or seek urgent care if signs/symptoms of allergy or harmful adverse reactions occur: Yes Additional care/services needed: Yes If yes, explain: Orencia co-pay card number given Additional equipment/supplies required: Yes If yes, explain: sharps container Patient satisfied with care/services provided: Yes Specialty Assessment: Physical and Cognitive Assessment: Functional limitations identified: No Cognitive limitations identified: No Concern regarding orientation/memory: No Concern with reasoning/judgement: No Is patient a fall risk: No Social Assessment: Does patient have a primary rn homecare: No Does patient have an emergency contact on file: Yes Does patient need referral to social media intern: No Does patient need referral to advocacy group: No Home Health Assessment: Is the patient in a safe home environment?: Yes Is the patient able to store their medication as directed?: Yes Does the patient have a support network at home?: Yes Reviewed potential home safety hazards with patient: Yes Economic Assessment: Patient is agreeable to medication copay: Yes Actual Copay: $: 5 Days Supply: 28 Welcome Packet and Rights and Responsibilities: Patient provided welcome packet/rights and responsibilities: Yes Specialty Med Adherence Therapy Assessment: View : No data to display. Current Medication Dosing/Route/Frequency: Orencia Clickject 125mg/mL SOAJ Inject the contents of 1pen subcutaneously every 7 days. Appropriate Therapy: Yes Current joints affected: ankles, feet Current pain rating (1-10): 4/10 Estimated duration of morning joint stiffness: 40 min Estimated number of recent flares: yes - 2-3 over the last month Recent systemic corticosteroid use: yes - for 1 day to help with flare Patient's Problems/Needs: PsA/controlling symptoms Expected Outcome: decrease in pain/increase mobility Treatment Outcome: Therapy initiated Patient's goals: Patient's specific desired goal: Sebastian Wyatt is hoping to see a decrease in pain levels by 50% and hopefully a decrease in morning stiffness as well. Measured by: pain scale, morning stiffness, # of flares per month Time-frame to meet goal: 3 to 6 months On a scale of 1-10, what is the patient's overall confidence level with administering this medication? 05/12 Monitoring requirements for prescribed medication: Signs and symptoms of infection, signs and symptoms of hypersensitivity reaction; hepatitis and TB screening prior to therapy initiation On a scale of 1-10 the patient rates their quality of life: not rated Care Plan Reviewed and Approved by both Pharmacist and Patient: Yes Interventions (if applicable): No Pharmacist follow-up needed: Yes Delivery Method: Delivery Patient understands no changes to current drug regimen were made at the appointment and that [facility] is[facility] recommendations (summary located at top of note) for provider review and follow up. Ama Martin RPH 01/02/23 11:24 AM documented in this encounter Plan of Treatment Upcoming Encounters Date Type Department Care Team (Late st Contact Info) Description 05/24/2025 11:00 AM EDT Office Visit Radiation Oncology at [address] [phone] Jesse Mcmahan MD [facility] [place] [address] documented as of this encounter Visit Diagnoses Not on filedocumented in this encounter Care Teams Annual Greenhouse Manager Relationship Specialty Start Date End Date Bj Alves MD [address] [place] [phone] PCP - General 06/25/10 04/02/23 documented as of this encounter
--- OUTSIDE RECORDS SUMMARY | 2024-08-01 15:26 | XMS_ITS | Encounter Summary ---
Author Organization [facility] [place] [address] Care Team Providers Care Electric Screw Driver Operator Name Role Phone Bj Alves MD Primary Care Provider [phone] Encounter Details Date Type Department Care Team (Late st Contact Info) Description 01/26/2023 [place]ill [place] [address] Tanner Frost MD [facility] [place] [address] Social History Tobacco Use Types Packs/Day Years [...] as of this encounter Miscellaneous Notes * Addendum Note - Ama Martini [facility] - 01/30/2023 11:07 AM EDTAddended by: AMA MARTINI on: 01/30/2023 11:07 AM Modules accepted: Orders documented in this encounter Plan of Treatment Upcoming Encounters Date Type Department Care Team (Late st Contact Info) Description 05/24/2025 11:00 AM EDT Office Visit Radiation Oncology at [address] [phone] Jesse Mcmahan MD [facility] [place] [address] documented as of this encounter Visit Diagnoses Not on filedocumented in this encounter Care Teams Electric Screw Driver Operator Relationship Specialty Start Date End Date Bj Alves MD [address] [place] [phone] PCP - General 06/25/10 04/02/23 documented as of this encounter
--- OUTSIDE RECORDS SUMMARY | 2024-08-01 15:26 | XMS_ITS | Encounter Summary ---
Author Organization [facility] Address [facility] [address] Care Team Providers Care Road Consultant Name Role Phone Bj Alves MD Primary Care Provider [phone] Reason for Visit * Reason Onset Date Comments Appointment 03/18/2023 CT Angio Abd/Pel vis ordered 09/01/22 Encounter Details Date Type Department Care Team ([facility] Contact Info) Description 03/18/2023 [place] [phone] Cade Flores, RN Appointment (CT Angio Abd/Pelvis ordered 09/01/22) Social History Tobacco Use Types Packs/Day Years [...] encounter Miscellaneous Notes * Telephone Encounter - Cade Flores RN - 03/18/2023 3:14 PM EDT Left message for pt to call Dr. Gregorio's clinic to schedule CT Angio Abd/Pelvis ordered 09/01/22 along with a follow up appointment documented in this encounter Plan of Treatment Upcoming Encounters Date Type Department Care Team ([facility] Contact Info) Description 05/24/2025 11:00 AM EDT Office Visit Radiation Oncology at [address] [phone] Jesse Mcmahan MD [facility] [place] [address] documented as of this encounter Visit Diagnoses Not on filedocumented in this encounter Care Teams Road Consultant Relationship Specialty Start Date End Date Bj Alves MD [address] [place] [phone] PCP - General 06/25/10 04/02/23 documented as of this encounter
--- OUTSIDE RECORDS SUMMARY | 2024-08-01 15:26 | XMS_ITS | Encounter Summary ---
Author Organization [facility] [place] [address] Care Team Providers Care Animal Husbandman Name Role Phone Bj Alves MD Primary Care Provider [phone] Reason for Visit * Reason Comments Specialty Pharmacy Review Adalimumab (Hu gloria) Pen 40mg/0.4mL Encounter Details Date Type Department Care Team (Late st Contact Info) Description 02/17/2023 Specialty [place] [address] Xiomara Goodman, MANAGER PUBLISHING Social History Tobacco Use Types Packs/Day Years [...] encounter Progress Notes * Xiomara Goodman - 02/17/2023 3:57 PM EDT The - Specialty Pharmacy has completed a benefits investigation for Sebastian Wyatt to review their eligibility to fill at - Specialty Pharmacy. Per patient's medication list they are prescribed Humira and the medication is not able to be filled at the [facility]. Sebastian Wyatt must fill with [facility] under current insurance plan's mandate. documented in this encounter Plan of Treatment Upcoming Encounters Date Type Department Care Team (Late st Contact Info) Description 05/24/2025 11:00 AM EDT Office Visit Radiation Oncology at [address] [phone] Jesse Mcmahan MD [facility] [place] [address] documented as of this encounter Visit Diagnoses Not on filedocumented in this encounter Care Teams Animal Husbandman Relationship Specialty Start Date End Date Bj Alves MD [address] [place] [phone] PCP - General 06/25/10 04/02/23 documented as of this encounter
--- OUTSIDE RECORDS SUMMARY | 2024-08-01 15:26 | XMS_ITS | Encounter Summary ---
Author Organization [facility] [place] [address] Care Team Providers Care Property Custodian Name Role Phone Bj Alves MD Primary Care Provider [phone] Encounter Details Date Type Department Care Team (Late Contact Info) Description 07/25/2020 Orders [place] [address] Irene Iyer CMA AAA (abdominal aortic aneurysm) without rupture Social History Tobacco Use Types Packs/Day Years [...] AM EDT Office Visit Radiation Oncology at [address] [phone] Jesse Mcmahan MD [facility] [place] [address] documented as of this encounter Visit Diagnoses Diagnosis AAA (abdominal aortic aneurysm) without rupture Abdominal aneurysm without mention of rupture documented in this encounter Care Teams Property Custodian Relationship Specialty Start Date End Date Bj Alves MD [address] [place] [phone] PCP - General 06/25/10 04/02/23 documented as of this encounter
--- OUTSIDE RECORDS SUMMARY | 2024-08-01 15:26 | XMS_ITS | Encounter Summary ---
Author Organization [facility] [place] [address] Care Team Providers Care Server Cashier Name Role Phone Bj Alves MD Primary Care Provider [phone] Encounter Details Date Type Department Care Team (Late Contact Info) Description 08/18/2022 Ancillary Procedure Radiology Library at [facility] [place] [phone] Melvin Alarcon MD [address] [place] [phone] Social History Tobacco Use Types Packs/Day Years [...] EDT Office Visit Radiation Oncology at [address] [phone] Jesse Mcmahan MD [facility] [place] [address] documented as of this encounter Procedures Procedure Name Priority Date/Time Associated Diagnosis Comments FILM LIBRARY - STORAGE ONLY CT NECK Routine 08/18/2022 12:00 AM EST documented in this encounter Results * Film Library- Storage Only CT Neck (08/18/2022 12:00 AM EST) Narrative [facility] - 07/23/2023 8:47 AM EST This exam is auto-finalizing. It's purpose is for storage only. Melvin Alarcon MD IMG FILM LIBRARY ORD ERABLES Performing Organization Address City/State/[facility] Co de Phone Number [place], [place] documented in this encounter Visit Diagnoses Not on filedocumented in this encounter Care Teams Server Cashier Relationship Specialty Start Date End Date Bj Alves MD [address] [place] [phone] PCP - General 06/25/10 04/02/23 documented as of this encounter
--- OUTSIDE RECORDS SUMMARY | 2024-08-01 15:26 | XMS_ITS | Encounter Summary ---
Author Organization [facility] Address [facility] [place] [address] Care Team Providers Care Navy Diver Name Role Phone Bj Alves MD Primary Care Provider [phone] Encounter Details Date Type Department Care Team (Latest Contact Info) Description 07/02/2022 Travel Social History Tobacco Use Types Packs/Day [...] AM EDT Office Visit Radiation Oncology at [address] [phone] Jesse Mcmahan MD [facility] [place] [address] documented as of this encounter Visit Diagnoses Not on filedocumented in this encounter Care Teams Navy Diver Relationship Specialty Start Date End Date Bj Alves MD [address] [place] [phone] PCP - General 06/25/10 04/02/23 documented as of this encounter
--- OUTSIDE RECORDS SUMMARY | 2024-08-01 15:26 | XMS_ITS | Encounter Summary ---
Author Organization [facility] [place] [address] Care Team Providers Care Exhibitions And Collections Manager Name Role Phone Bj Alves MD Primary Care Provider [phone] Encounter Details Date Type Department Care Team (Late Contact Info) Description 06/12/2020 Telephone [place] [phone] Selina Bell Social History Tobacco Use Types Packs/Day Years [...] EDT Office Visit Radiation Oncology at [address] [phone] Jesse Mcmahan MD [facility] [place] [address] documented as of this encounter Visit Diagnoses Not on filedocumented in this encounter Care Teams Exhibitions And Collections Manager Relationship Specialty Start Date End Date Bj Alves MD [address] [place] [phone] PCP - General 06/25/10 04/02/23 documented as of this encounter
--- OUTSIDE RECORDS SUMMARY | 2024-08-01 15:26 | XMS_ITS | Encounter Summary ---
[place] [address] Care Team Providers Care Fork Lift Mechanic Name Role Phone Bj Alves MD Primary Care Provider [phone] Reason for Visit * Reason Comments Specialty Pharmacy Review Adalimumab (Hu gloria) 40mg/0.4mL PNKT Encounter Details Date Type Department Care Team (Late st Contact Info) Description 01/02/2023 Specialty [place] [phone] Xiomara [place], [facility] Social History Tobacco Use Types Packs/Day Years [...] this encounter Progress Notes * Ama Martin RP - 01/02/2023 10:55 AM EDT The [facility] has completed a benefits investigation for Sebastian Wyatt to review their eligibility to fill at [facility]. Per patient's medication list they are prescribed Humira and the medication is not able to be filled at the [facility]. Sebastian Wyatt can fill Humira once with Specialty Pharmacy and then must fill with [facility] going forward. documented in this encounter Plan of Treatment Upcoming Encounters Date Type Department Care Team (Late st Contact Info) Description 05/24/2025 11:00 AM EDT Office Visit Radiation Oncology at [address] [phone] Jesse Mcmahan MD [facility] [place] [address] documented as of this encounter Visit Diagnoses Not on filedocumented in this encounter Care Teams Fork Lift Mechanic Relationship Specialty Start Date End Date Bj Alves MD [address] [place] [phone] PCP - General 06/25/10 04/02/23 documented as of this encounter
--- OUTSIDE RECORDS SUMMARY | 2024-08-01 15:26 | XMS_ITS | Encounter Summary ---
[place] [address] Care Team Providers Care Licensed Club Manager Name Role Phone Bj Alves MD Primary Care Provider [phone] Reason for Visit * Reason Comments Prior Authorization Humira Pen 40mg/0.4m l PNKT Encounter Details Date Type Department Care Team (Late st Contact Info) Description 01/27/2023 Specialty [place] [phone] Iman Banuelos, [facility] Social History Tobacco Use Types Packs/Day Years [...] encounter Progress Notes * Iman Banuelos - 01/27/2023 10:50 AM EDT [facility], Medication Prior Authorization Submission Patient: Sebastian Wyatt Patient : 1955 Patient Address: [address] [address] (home) Medication Name: HUMIRA(CF) PEN 40 MG/0.4 ML SUBCUTANEOUS KIT Medication ID: [id number] Subscriber Insurance: B-Obvious ([facility]) Subscriber Insurance Comment: Phone: Fax: Physician: KALLIE GIL Physician Comment: Sent Via: [facility] Linares: Linares: [id number] Ref/Case/PA#: Medication Strength Frequency Requested: Inject the contents of one pen(40mg) subcutaneously every 14 days Qty/Day Supply: 09/30 New Start: New to Therapy Diagnosis & ICD-10 Code: 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 Patient Notified: Yes Submission Notes: None Iman Banuelos 01/27/23 10:54 AM * Iman Banuelos - 01/27/2023 10:50 AM EDT [facility], Prior Authorization Approval Medication Name: HUMIRA(CF) PEN 40 MG/0.4 ML SUBCUTANEOUS KIT Medication ID: [id number] Approval Dates: 01/27/2023 to 01/27/2024 Insurance requirements/notes: None Other Notes: None Case/Reference #: [id number] Approval notification Received via: Telephone Copay: $5.00 Copay assistance: None Copay Notes: Insurance mandated Pharmacy: [facility] Fillable at [facility]: One time Fill Patient Notified: To be contacted by [facility] for consult Pharmacy staff will be reaching out to the patient to inform them of their medication[facility]. If applicable, a pharmacist will speak with the patient to offer our specialty pharmacy services and to arrange delivery of their medication. Iman Banuelos 01/27/23 12:18 PM documented in this encounter Plan of Treatment Upcoming Encounters Date Type Department Care Team (Late st Contact Info) Description 05/24/2025 11:00 AM EDT Office Visit Radiation Oncology at [address] [phone] Jesse Mcmahan MD [facility] [place] [address] documented as of this encounter Visit Diagnoses Not on filedocumented in this encounter Care Teams Licensed Club Manager Relationship Specialty Start Date End Date Bj Alves MD [address] [place] [phone] PCP - General 06/25/10 04/02/23 documented as of this encounter
--- OUTSIDE RECORDS SUMMARY | 2024-08-01 15:26 | XMS_ITS | Encounter Summary ---
Author Organization [facility] [place] [address] Care Team Providers Care Solaris Administrator Name Role Phone Bj Alves MD Primary Care Provider [phone] Reason for Visit * Reason Onset Date Comments Medication Problem 05/03/2021 Encounter Details Date Type Department Care Team (Late st Contact Info) Description 05/03/2021 [place] [phone] Trey David, retail management trainee Problem Social History Tobacco Use Types Packs/Day Years [...] Telephone Encounter - Trey David RN - 05/03/2021 10:54 AM EDT Salvador calls today to discuss the SSZ. RTC and Salvador states he has had no relief of his flares while on the SSZ for the last 2 months and wishes to stop the Sulfasalazine. Reports about 3 weeks after starting the Sulfasalazine he started having blurred vision that clearsduring the day but returns with next dose. Salvador would like to know if Dr. Frost thinks he should restart the Methotrexate at a higher dose (was at 12.5 mg) or should he just move onto a Biologic at this time. Regardless Salvador advises he wants to stop the Sulfasalazine. Tanner Frost MD sent to Trey David RN Caller: Unspecified (Today, ??8:40 AM) I think we should restart the methotrexate at a higher dose. 15 mg to start. And increase by 2.5 mgweekly until at 20 mg. ??I will write for 20 mg weekly. Order placed for MTX and folic acid. ?? Called Salvador to advise of POC from Dr. Margot LM on VM at his request and asked for a RTC to state he understands the directions. Salvador calls back to confirm and we went over the directions together and he verbalizes understanding. Will call if not noticing a slip box changer the next few weeks. documented in this encounter Plan of Treatment Upcoming Encounters Date Type Department Care Team (Late st Contact Info) Description 05/24/2025 11:00 AM EDT Office Visit Radiation Oncology at [address] [phone] Jesse Mcmahan MD [facility] [place] [address] documented as of this encounter Visit Diagnoses Not on filedocumented in this encounter Care Teams Solaris Administrator Relationship Specialty Start Date End Date Bj Alves MD [address] [place] [phone] PCP - General 06/25/10 04/02/23 documented as of this encounter
--- OUTSIDE RECORDS SUMMARY | 2024-08-01 15:26 | XMS_ITS | Encounter Summary ---
Author Organization [facility] [place] [address] Care Team Providers Care Client Retention Specialist Name Role Phone Bj Alves MD Primary Care Provider [phone] Encounter Details Date Type Department Care Team (Late st Contact Info) Description 07/11/2020 9:30 AM EST Office Visit Radiation Oncology at [address] [phone] Jesse Mcmahan MD [facility] [place] [address] Cancer of base of tongue Social History [...] Sign Reading Time Taken Comments Blood Pressure 126/67 07/11/2020 9:32 AM EST Pulse 71 07/11/2020 9:32 AM EST Temperature 36.6 ??C (97.9 ??F) 07/11/2020 9:32 AM ES T Respiratory Rate 20 07/11/2020 9:32 AM EST Oxygen Saturation 98% 07/11/2020 9:32 AM EST Inhaled Oxygen Concentration - - Weight 96.9 kg (213 lb 9.6 oz) 07/11/2020 9:32 A M EST Height 177.8 cm (5' 10) 07/11/2020 9:32 AM EST Body Mass Index 30.65 07/11/2020 9:32 AM EST documented in this encounter Progress Notes * Jesse Mcmahan MD - 07/11/2020 9:30 AM EST Radiation Oncology Follow Up Note Patient Name: Sebastian Wyatt Primary MD: Bj Alves MD Referring MD: Bj Alves Other Involved Physicians: Butch Catalan Patient Active Problem List Diagnoses Code ? 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 Presentation: ?? Hx. 1 PPD x 38 yrs. Quit 08/2011. Developed odynophagia early 11/2011, abx did not improve, . Referred to ENT. He does note some coughing in the morning ove the past year. ?? Staging: ?? 12/09/11 CT H&N with contrast ([facility]): Mixed attenuation mass with lare low density areas suggesting necrotic change present deep to anterior aspect L SCM. Mass smoothly marginated, max 3.3 x 5.2 cm. ?? 11/27/11 PET-CT ([facility]): Despite premedication, severe claustrophobia allowed this can [...] distant metastases are identified in this study. ?? 12/12/11 EUA with triple endoscopy and biospy: ?? Findings: LPR changes to the mucosa. Difficult to visualize the larynx. Left tonsil is firm. Ulcerative area at the left tongue base also suspicious for primary. BOT and tonsil seem to be discontiguous. ?? Path: ?? A - Cyst, left vallecula: Benign squamous lined cyst ?? B - Left tongue base: Invasive squamous cell carcinoma, intermediate grade ?? C - Left tonsil: negative for malignancy ?? Positive for HPV genotype p16 ?? Therapy: ?? Enrolled on RTOG 1016, randomized to cetuximab arm. Received 70 Gy completed 04/06/12 141.0 ??? Obesity 278.00 ??? Hyperlipidemia 272.4 ??? Hypertension 401.9 ??? Glucose intolerance (impaired glucose tolerance) 790.22 ??? Cigarette smoker 305.1 ??? Hypothyroidism 244.9 ??? GERD (gastroesophageal reflux disease) 530.81 ??? Psoriasis 696.1 ??? Sleep apnea 780.57 ??? Anxiety 300.00 ??? Back pain, chronic 724.5 ??? Thalassemia minor 282.49 ??? Claustrophobia 300.29 ??? 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 DIFFICULT AIRWAY [id number] ??? Dysphagia, unspecified 787.20 Interval History: Sebastian Wyatt returns for an off grid follow up having completed radiotherapy approximately 8 years 2 months prior. He had an episode of severe pain after he ate a cracker, localized to the left, which persisted. He grew concerned and called us to be evaluated. The pain grew to encompass the right side. However, it resolved over the course of the next two days. He also notes an allergy to almond flower that has developed over the past few days. Currently he has no pain ornew symptoms relative to his visit last month. Physical Examination: Vitals: 07/11/20 0932 BP: 126/67 Patient Position: Sitting Pulse: 71 Resp: 20 Temp: 36.6 ??C (97.9 ??F) TempSrc: Temporal SpO2: 98% Weight: 96.9 kg (213 lb 9.6 oz) Height: 177.8 cm (5' 10) Physical Exam Constitutional: He is oriented to person, place, and time. He appears well- developed and well-nourished. HENT: Visual inspection of OC and OP revealed no evidence of suspicious masses or lesions. Palpation reveals posterior aspect of oral tongue soft without masses or lesions. Oral tongue slightly deviates mildly to left on extrusion; altered sensation left lateral tongue. Good dentition. Moisture moderate.No thrush. Eyes: Pupils are equal, round, and reactive to light. EOM are normal. Neck: No tracheal deviation present. Palpation reveals no adenopathy in cervical, SCLV, ICLV chance basins. He has fibrosis of the left neck that is significant, less so on the right neck. He has tenderness to palpation along the SCLV onthe left. Neurological: He is alert and oriented to person, place, and time. No cranial nerve deficit. Skin: Skin is warm and dry. Psychiatric: He has a normal mood and affect. His behavior is normal. Procedure: Interval Imaging/Labs: Assessment/Plan: Squamous cell carcinoma of the BOT. His symptoms have resolved and there was no need to see him today, likely minor irritation or trauma, DL last month with MARCO. No concerning findings. He knows to call if his symptoms return. ?? FU: follow up with radiation oncology per [facility] algorithm documented in this encounter Plan of Treatment Upcoming Encounters Date Type Department Care Team (Late st Contact Info) Description 05/24/2025 11:00 AM EDT Office Visit Radiation Oncology at [address] [phone] Jesse Mcmahan MD [facility] [place] [address] documented as of this encounter Visit Diagnoses Diagnosis Cancer of base of tongue Malignant neoplasm of base of tongue documented in this encounter Care Teams Client Retention Specialist Relationship Specialty Start Date End Date Bj Alves MD [address] [place] [phone] PCP - General 06/25/10 04/02/23 documented as of this encounter
--- OUTSIDE RECORDS SUMMARY | 2024-08-01 15:26 | XMS_ITS | Encounter Summary ---
Author Organization [facility] [place] [address] Care Team Providers Care Email Administrator Name Role Phone Bj Alves MD Primary Care Provider [phone] Reason for Visit * Reason Onset Date Comments Other 01/02/2023 CT Angio Abd/Pel vis ordered 09/22/22 Encounter Details Date Type Department Care Team ([facility] Contact Info) Description 01/02/2023 [place] [phone] Cade Flores RN Other (CT Angio Abd/Pelvis ordered 09/22/22) Social History Tobacco Use Types Packs/Day Years [...] Telephone Encounter - Cade Flores RN - 01/02/2023 10:08 AM EDT LM for pt to call CT to schedule imaging or contact Dr. Gregorio's clinic with any questions. documented in this encounter Plan of Treatment Upcoming Encounters Date Type Department Care Team ([facility] Contact Info) Description 05/24/2025 11:00 AM EDT Office Visit Radiation Oncology at [address] [phone] Jesse Mcmahan MD [facility] [place] [address] documented as of this encounter Visit Diagnoses Not on filedocumented in this encounter Care Teams Email Administrator Relationship Specialty Start Date End Date Bj Alves MD [address] [place] [phone] PCP - General 06/25/10 04/02/23 documented as of this encounter
--- OUTSIDE RECORDS SUMMARY | 2024-08-01 15:26 | XMS_ITS | Encounter Summary ---
Author [facility] [address] Care Team Providers Care Home Theater Specialist Name Role Phone Bj Alves MD Primary Care Provider Reason for Visit * Reason Onset Date Comments Other 02/22/2021 Encounter Details Date Type Department Care Team (Late st Contact Info) Description 02/22/2021 [place] [phone] Jefry Mcclellan RN Other Social History Tobacco Use Types [...] encounter Miscellaneous Notes * Telephone Encounter - Jefry Mcclellan RN - 02/22/2021 9:29 AM EDT Patient updated on response from provider. Lab order faxed to [facility]. * Telephone Encounter - Jefry Mcclellan RN - 02/22/2021 9:27 AM EDT ----- Message from Tnaner Frost MD sent at 02/21/2021 6:56 PM EDT ----- Regarding: Starting new medication Please let Ama know that I spoke with radiation oncology. Dr. Mcmahan did not have any problem with starting sulfasalazine. I would like to have him start 1 tablet daily for 7 days and then increase to 1 tablet twice daily. Each tablet is 500 mg. He should also continue to take Otezla.Also I wanted to have him get uric acid testing locally up at [facility]. Can we please have this order set up to [facility], thank you documented in this encounter Plan of Treatment Upcoming Encounters Date Type Department Care Team (Late st Contact Info) Description 05/24/2025 11:00 AM EDT Office Visit Radiation Oncology at [address] [phone] Jesse Mcmahan MD [facility] [place] [address] documented as of this encounter Visit Diagnoses Not on filedocumented in this encounter Care Teams Home Theater Specialist Relationship Specialty Start Date End Date Bj Alves MD [address] [place] [phone] PCP - General 06/25/10 04/02/23 documented as of this encounter
--- OUTSIDE RECORDS SUMMARY | 2024-08-01 15:26 | XMS_ITS | Encounter Summary ---
Author Organization [facility] [place] [address] Care Team Providers Care Curb Supervisor Name Role Phone Bj Alves MD Primary Care Provider [phone] Encounter Details Date Type Department Care Team (Late st Contact Info) Description 06/19/2021 3:00 PM EST Office Visit Radiation Oncology at [address] [phone] Jesse Mcmahan MD [facility] [place] [address] Cancer of base of tongue Social History [...] Sign Reading Time Taken Comments Blood Pressure 132/75 06/19/2021 3:20 PM EST Pulse 73 06/19/2021 3:20 PM EST Temperature 36.5 ??C (97.7 ??F) 06/19/2021 3:20 PM ES T Respiratory Rate 20 06/19/2021 3:20 PM EST Oxygen Saturation 99% 06/19/2021 3:20 PM EST Inhaled Oxygen Concentration - - Weight 98 kg (216 lb) 06/19/2021 3:20 PM EST wit h shoes Height - - Body Mass Index 30.99 07/11/2020 9:32 AM EST documented in this encounter Progress Notes * Scarlett Costa MD - 06/19/2021 3:00 PM EST Radiation Oncology Follow Up Note Patient [...] Staging: ?? 12/09/11 CT H&N with contrast ([facility]): Mixed attenuation mass with lare low density areas suggesting necrotic change present deep to anterior aspect L SCM. Mass smoothly marginated, max 3.3 x 5.2 cm. ?? 11/27/11 PET-CT ([facility]): Despite premedication, severe claustrophobia allowed this can [...] ??? 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 DIFFICULT AIRWAY [address] ??? Dysphagia, unspecified 787.20 Interval History: Sebastian Wyatt returns for an off grid follow up having completed radiotherapy approximately 9 years 2 months prior. Pain: Occasional painful/sore throat which occurs several times a year but resolves after a few days. This has been present for some time. He has recently had progression of his psoriatic arthritis in achilles tendon and knuckles. Had a cortisone shot in first toe this morning. He is taking methotrexate, Otezla, and celebrex. Neck sx: Occasionally feels neck tightness but he continues to work with ROM exercises and sharp scarring pain. Xerostomia: Mild xerostomia, needs to wash down with water. Sensory deficits: Previously noted left hand numbness/tingling has improved but still occurs very rarely. Left anterior tongue numbness has progressed from sporadic to constant. Physical Examination: Vitals: 06/19/21 1520 BP: 132/75 Pulse: 73 Resp: 20 Temp: 36.5 ??C (97.7 ??F) TempSrc: Temporal SpO2: 99% Weight: 98 kg (216 lb) Physical Exam Constitutional: He is oriented to [...] Procedure: NPL: Flexible laryngoscopy was performed. The right naris was anesthetized with aerosolized lidocaine, and the laryngoscope was passed without difficulty. The nasopharynx was visualized and was without masses or lesions. The oropharynx, larynx, and piriform sinuses were visualized and notable for benign post radiation changes but were without masses or lesions. The vocal cords fully apposed. ECO Interval Imaging/Labs: n/a Assessment/Plan: Squamous cell carcinoma of the BOT. MARCO. 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 These symptoms are likely related to long term care administrator changes associated with radiotherapy. He knows to call if his symptoms progress, but at this time wishes to observe as opposed to further investigations. He continues tohave stable fibrosis; his thyroid is followed by his PCP. He continues to see a dentist regularly and uses supplemental fluoride. ?? FU: follow up with radiation oncology per [facility] algorithm Attending Statement: I saw the patient with Dr. Costa and agree with the history, physical, assessment, and plan as stated. -Jesse Mcmahan MD, PhD documented in this encounter Plan of Treatment Upcoming Encounters Date Type Department Care Team (Late st Contact Info) Description 05/24/2025 11:00 AM EDT Office Visit Radiation Oncology at [address] [phone] Jesse Mcmahan MD [facility] [place] [address] documented as of this encounter Visit Diagnoses Diagnosis Cancer of base of tongue Malignant neoplasm of base of tongue documented in this encounter Care Teams Curb Supervisor Relationship Specialty Start Date End Date Bj Alves MD [address] [place] [phone] PCP - General 06/25/10 04/02/23 documented as of this encounter
--- OUTSIDE RECORDS SUMMARY | 2024-08-01 15:26 | XMS_ITS | Encounter Summary ---
Author Organization [facility] [place] [address] Care Team Providers Care Steam Cleaner Name Role Phone Bj Alves MD Primary Care Provider [phone] Reason for Visit * Reason Onset Date Comments Medication Refill 11/10/2022 Encounter Details Date Type Department Care Team (Late Contact Info) Description 11/10/2022 [place] [phone] Radha Reese RN Psoriasis with arthropathy Social History Tobacco [...] Telephone Encounter - Radha Reese RN - 11/10/2022 9:33 AM EDT Methylprednisolone and Methotrexate documented in this encounter Plan of Treatment Upcoming Encounters Date Type Department Care Team (Late Contact Info) Description 05/24/2025 11:00 AM EDT Office Visit Radiation Oncology at [address] [phone] Jesse Mcmahan MD [facility] [place] [address] documented as of this encounter Visit Diagnoses Diagnosis Psoriasis with arthropathy Psoriatic arthropathy documented in this encounter Care Teams Steam Cleaner Relationship Specialty Start Date End Date Bj Alves MD [address] [place] [phone] PCP - General 06/25/10 04/02/23 documented as of this encounter
--- OUTSIDE RECORDS SUMMARY | 2024-08-01 15:26 | XMS_ITS | Encounter Summary ---
[place] [address] Care Team Providers Care Flight Crew Scheduler Name Role Phone Bj Alves MD Primary Care Provider [phone] Reason for Visit * Reason Comments Medication Management Patient Education Adalimumab (Humira) 40mg/0.4mL PNKT Encounter Details Date Type Department Care Team (Late st Contact Info) Description 01/30/2023 Specialty [place] [address] Ama Martin, [facility] Social History Tobacco Use Types Packs/Day Years [...] Progress Notes * Ama Martin RPH - 01/30/2023 11:10 AM EDT Images from the original note were not included. Specialty Pharmacy Initial Consultation; Ama Martin RPH Comprehensive Medication Management (CMM) Sebastian Wyatt Diagnosis: Psoriatic Arthritis Therapy Start Date: TBD Contact in person or via telephone: via telephone Mr. Sebastian Wyatt is a 67 y.o. (1955) male who was contacted in regard to specialty medication. Spoke with patient regarding Humira . A review of the medication therapy was performed. The medication was Filled as scheduled, and all medication related questions and concerns were addressed. The specialty pharmacy staff will follow up with the patient 5-7 days prior to next refill. Is the patient willing to proceed with the Clinical Assessment? Yes Summary and Recommendations: Sebastian Wyatt was contacted via telephone for a review of Humira for the treatment of psoriatic arthritis. Patient is aware of the prior authorization process and timeline and was given [facility] contact information for any questions. Patient was educated on the Humira labeled black box warnings regarding the risk of serious infections including tuberculosis and malignancies. Discussed other precautions with Humira including anaphylaxis/hypersensitivity and hepatitis B reactivation. Patient denies personal history of demyelinating disease or heart failure and was made aware of these precautions as well. Patient was educated on the importance of infection prevention including best practices for hand hygiene and the annual fluvaccine. Discussed the need to avoid live vaccines during treatment. Dose hold parameters were reviewed including suspected/known infection, prescribed antibiotic therapy, or scheduled surgery. Patient agrees to contact the clinic to review dose hold in these settings. Educated patient on the potential side effects of Humira including injection site reaction, headache, rash, and infections such as URTI/sinusitis. Discussed with patient that it may take 3-4 months to experience the full benefit of Humira. A review of dosing, storage, and administration was completed. Patient was educated on the dosing schedule, 40 mg subcutaneously every 2 weeks. Patient was made aware that Humira must be stored in the refrigerator and remains stable at room temperature for 14 days. Demonstration of injection technique was performed using Humira training kit. Patient was advised on proper site rotation, site sterilization, and allowing the medication to reach room temperature prior to injection. Patient was ableto demonstrate appropriate injection technique and required no remedial counseling. Patient was encouraged to schedule an injection teaching appointment if they prefer to have first injection completed with medical oversight and was directed to view additional online video resources if needed. Patient will be provided with a sharps container and disposal of pens was discussed. Clinic follow-up needed: yes - with Dr. Frost in a few months Allergies and Drug intolerance: No Known Allergies Problem List: Patient Active Problem List Diagnosis Code Cancer of base of tongue C01 Obesity (BMI 30.0-34.9) E66.9 Hyperlipidemia E78.5 Hypertension I10 Glucose intolerance (impaired glucose tolerance) R73.02 Hypothyroidism E03.9 GERD (gastroesophageal reflux disease) K21.9 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 LIBERTY on CPAP G47.33, Z99.89 Anxiety F41.9 Back pain, chronic M54.9, G89.29 Thalassemia minor Claustrophobia F40.240 Ulnar neuropathy G56.20 DIFFICULT AIRWAY T88.4XXA Dysphagia, unspecified(787.20) R13.10 Congenital nevus Q82.5 AAA (abdominal aortic aneurysm) without rupture I71.40 Benign prostatic hyperplasia with lower urinary tract symptoms N40.1 Depression F32.A Special Dietary or Hydration Requirements: no Medication Reconciliation Discrepancies (compared to [facility] med list) -none Medication List: Current Outpatient Medications Medication Sig Note Dispense Refill adalimumab (Humira,CF, Pen) 40 mg/0.4 mL Pen Injector Kit Inject 0.4 mLs subcutaneously every 14 days. Indications: psoriasis associated with arthritis, L40.50 1 kit 5 docusate sodium (Colace) 100 mg capsule Take 1 capsule every day by oral route as needed. tadalafiL (Cialis) 5 mg tablet Take 5 mg by mouth. metHOTREXate 25 mg/mL Solution Inject 1 mL subcutaneously once a week for 90 days. (Patient not taking: Reported on 01/02/2023) 10 mL 1 methylPREDNISolone (MedroL) 4 mg tablet Take 3 tablets by mouth daily (after breakfast). 45 tablet 2 Syringe-Needle, Safety,Disp Un 1 mL 27 gauge x 1/2 Syringe 1 each by [facility].(Non- Drug; Combo Route) route every 7 days. (Patient not taking: Reported on 01/02/2023) 25 each 1 Syringe with Needle, Disp, 1 mL 27 x 1/2 Syringe Inject 1 Syringe subcutaneously once a week. (Patient not taking: Reported on 01/02/2023) 25 each 3 dextrose 5% SolP 500 mL with metHOTREXate (PF) 25 mg/mL Soln Inject into the vein once. 07/02/2022:Taking .10ml rosuvastatin (Crestor) 10 mg Tablet Take 10 mg by mouth daily. 01/27/2019: Every other day tamsulosin (FLOMAX) 0.4 mg Capsule, Sust. Release 24 hr Take 0.4 mg by mouth daily. betamethasone dipropionate (DIPROLENE) 0.05 % Ointment Apply topically 2 times daily. 01/27/2019: daily celecoxib (CELEBREX) 100 mg capsule Take 100 mg by mouth every other day. levothyroxine (SYNTHROID) 100 mcg tablet Take 175 mcg by mouth daily. Indications: Hypothyroidism 06/19/2021: 175mcg x 5 days/week, 200 mcg 2x/week amlodipine-benazepril (LOTREL) 5-10 mg per capsule Take 1 capsule by mouth daily. 02/22/2015: . Current Facility-Administered Medications Medication Dose Route Frequency Provider Last Rate Last Admin lidocaine (Xylocaine) 4 % (40 mg/mL) solution Topical (Top) Once PRN Jesse Mcmahan MD lidocaine (Xylocaine) 4 % (40 mg/mL) solution [...] values: Lab Results Component Value Date NA 140 01/02/2023 K 4.0 01/02/2023 CL 104 01/02/2023 CO2 26 01/02/2023 BUN 15 01/02/2023 CREATININE 0.91 01/02/2023 GLUCOSE 105 01/02/2023 CALCIUM 9.6 01/02/2023 Lab Results Component Value Date ALT 14 01/02/2023 AST 19 01/02/2023 ALKPHOS 90 01/02/2023 BILITOT 0.6 01/02/2023 BILIDIR 0.1 07/06/2012 ALBUMIN 4.2 01/02/2023 PROT 6.8 01/02/2023 Lab Results Component Value Date WBC 8.7 01/02/2023 HGB 13.3 (L) 01/02/2023 HCT 41.8 01/02/2023 MCV 65.6 (L) 01/02/2023 PLATELET 185 01/02/2023 No results found for: HA1C There is no immunization history on file for this patient. Assessment and Recommendations: Patient Counseling Patient informed of specialty services: Yes Patient accepted offer to pastoral counselor: select all, adherence/missed doses, cost of [...] discussed, health goals discussed, monitoring medication discussed, preventative care discussed, recommendations to doctor discussed, reminder to refill or nut picker medication discussed, self-monitoring discussed, start medication discussed, stop medication discussed, timing of medications discussed, vaccination discussed, lifestyle modification education, referral needs discussed Time spent: 16-30 min Treatment Outcomes 01/30/2023 1112 Disease progression: Moderate Reviewed in detail with [...] Additional care/services needed: Yes If yes, explain: will need to fill with [facility] going forward Additional equipment/supplies required: Yes If yes, explain: sharps container Patient satisfied with care/services provided: Yes Specialty Assessment: Physical and Cognitive Assessment: Social Assessment: Does patient have a primary career development specialist: No Does patient have an emergency contact on file: Yes Does patient need referral to social worker assistant: No Does patient need referral to advocacy [...] responsibilities: Yes Specialty Med Adherence Therapy Assessment: No data to display Current Medication Dosing/Route/Frequency: Humira 40mg/0.4mL PNkT Inject the contents of 1 pen subcutaneously every 14 days. Appropriate Therapy: Yes Current joints affected: ankles, feet Current pain rating (1-10): 4/10 Estimated duration of morning joint stiffness: 40 min Estimated number of recent flares: yes - 2 to 3 Recent systemic corticosteroid use: no Patient's Problems/Needs: PsA/ controlling symptoms Expected Outcome: decr Treatment Outcome: Therapy initiated Patient's goals: Patient's specific desired goal: Sebastian Wyatt is hoping to have a decrease in joint pain by 50% and morning stiffness. Measured by: pain scale, morning stiffness Time-frame to meet goal: 3 to 6 months On a scale of 1-10, what is the patient's overall confidence level with administering this medication? 05/12 Monitoring requirements for prescribed medication: Improvement of symptoms,TB screening, HBV screening, CBC, signs/symptoms of active infections, heart failure, hypersensitivity, and malignancy On a scale of 1-10 the patient rates their quality of life: not rated Care Plan Reviewed and Approved by both Pharmacist and Patient: Yes Interventions (if applicable): No Pharmacist follow-up needed: Yes Delivery Method: Delivery (patient will need to fill with [facility] going forward) Patient understands no changes to current drug regimen were made at the appointment and that [facility] is[facility] recommendations (summary located at top of note) for provider review and follow up. Ama Martin RPH 01/30/23 11:12 AM documented in this encounter Plan of Treatment Upcoming Encounters Date Type Department Care Team (Late st Contact Info) Description 05/24/2025 11:00 AM EDT Office Visit Radiation Oncology at [address] [phone] Jesse Mcmahan MD [facility] [place] [address] documented as of this encounter Visit Diagnoses Not on filedocumented in this encounter Care Teams Flight Crew Scheduler Relationship Specialty Start Date End Date Bj Alves MD [address] [place] [phone] PCP - General 06/25/10 04/02/23 documented as of this encounter
--- OUTSIDE RECORDS SUMMARY | 2024-08-01 15:26 | XMS_ITS | Encounter Summary ---
[place] [address] Care Team Providers Care Manager Infusion Name Role Phone Bj Alves MD Primary Care Provider [phone] Reason for Visit * Reason Comments Medication Management Encounter Details Date Type Department Care Team (Late st Contact Info) Description 01/27/2023 Specialty [place] [phone] Ama Martin, [facility] Social History Tobacco Use Types [...] this encounter Progress Notes * Ama Martin [facility] - 01/27/2023 3:20 PM EDT Clinical Management Plan: Specialty Pharmacy Phone Call Specialty Pharmacy Consultation; Ama Martin [facility] Comprehensive Medication Management (CMM) Sebastian J Yoselin Mr. Sebastian Wyatt is a 67 y.o. (1955) male who was [facility] in medication from Orencia to Humira. Summary: Medication Currently On: methotrexate (not currently on biologic therapy) Questions for the pharmacy/provider?: would like to address any questions the patient may have in regards to Humira LVM for patient on 01/27/23 at 1520. Follow up needed? yes - set follow up to call him tomorrow 01/28. Ama Martin RPH 01/27/23 3:20 PM * Ama Martin [facility] - 01/27/2023 3:20 PM EDT Lvm to go over Jennifer (01/29/23 @1031) documented in this encounter Plan of Treatment Upcoming Encounters Date Type Department Care Team (Late st Contact Info) Description 05/24/2025 11:00 AM EDT Office Visit Radiation Oncology at [address] [phone] Jesse Mcmahan MD [facility] [place] [address] documented as of this encounter Visit Diagnoses Not on filedocumented in this encounter Care Teams Manager Infusion Relationship Specialty Start Date End Date Bj Alves MD [address] [place] [phone] PCP - General 06/25/10 04/02/23 documented as of this encounter
--- OUTSIDE RECORDS SUMMARY | 2024-08-01 15:26 | XMS_ITS | Encounter Summary ---
[place] [address] Care Team Providers Care Consolidation Accountant Name Role Phone Melvin Alarcon MD Primary Care Provider [phone] Reason for Visit * Reason Comments Prior Authorization Orencia Clickject 12 5mg/ml SOAJ Encounter Details Date Type Department Care Team (Late st Contact Info) Description 05/29/2023 Specialty [place] [phone] Iman Banuelos, [facility] Social History Tobacco Use Types Packs/Day Years [...] encounter Progress Notes * Iman Banuelos - 05/29/2023 9:48 AM EDT [facility], Medication Prior Authorization Submission Patient: Sebastian Wyatt Patient : 1955 Patient Address: [address] [address] (home) Medication Name: ORENCIA CLICKJECT 125 MG/ML SUBCUTANEOUS AUTO-INJECTOR Medication ID: Subscriber Insurance: [employer]via [employer] ([facility]) Subscriber Insurance Comment: Phone: Fax: Physician: KALLIE GIL Physician Comment: Sent Via: [facility] Linares: Linares: [id number] Ref/Case/PA#: Medication Strength Frequency Requested: Inject the contents of one pen(125mg) subcutaneously every7 days Qty/Day Supply: 11/28 New Start: New to Therapy Diagnosis & ICD-10 Code: psoriatic arthritis L40.50 Patient Notified: Yes Submission Notes: None Iman Banuelos 05/29/23 9:50 AM * Iman Banuelos - 05/29/2023 9:48 AM EDT [facility], Prior Authorization Approval Medication Name: ORENCIA CLICKJECT 125 MG/ML SUBCUTANEOUS AUTO-INJECTOR Medication ID: Approval Dates: 05/29/2023 to 05/28/2024 Insurance requirements/notes: None Other Notes: None Case/Reference #: [id number] Approval notification Received via: [facility] Copay: $0.00 Copay assistance: None Copay Notes: Insurance mandated Pharmacy: [facility] Fillable at [facility] Specialty Pharmacy: Yes One time fill Patient Notified: To be contacted by [facility] for consult Pharmacy staff will be reaching out to the patient to inform them of their medication's approval [facility] insurance. If applicable, a pharmacist will speak with the patient to offer our specialty pharmacy services and to arrange delivery of their medication. Iman Banuelos 05/29/23 2:05 PM documented in this encounter Plan of Treatment Upcoming Encounters Date Type Department Care Team (Late st Contact Info) Description 05/24/2025 11:00 AM EDT Office Visit Radiation Oncology at [address] [phone] Jesse Mcmahan MD [facility] [address] [place] [address] documented as of this encounter Visit Diagnoses Not on filedocumented in this encounter Care Teams Consolidation Accountant Relationship Specialty Start Date End Date Melvin Alarcon MD [address] [place] [address] PCP - General Internal Medicine 07/22/23 documented as of this encounter
--- OUTSIDE RECORDS SUMMARY | 2024-08-01 15:26 | XMS_ITS | Encounter Summary ---
Author Organization [facility] [place] [address] Care Team Providers Care Reading Efficiency Course Director Name Role Phone Bj Alves MD Primary Care Provider [phone] Reason for Visit * Reason Comments Specialty Pharmacy Review apremilast (OT EZLA) 30 mg Tablet Encounter Details Date Type Department Care Team (Late st Contact Info) Description 02/21/2021 Specialty [place] [phone] Shun Pollack Social History Tobacco Use Types Packs/Day Years [...] as of this encounter Progress Notes * Shun Pollack - 02/21/2021 11:59 PM EDT The [facility] has completed a benefits investigation for Sebastian Wyatt to review their eligibility to fill at [facility]. Per patient's medication list they are prescribed apremilast (OTEZLA) 30 mg Tablet and the medication is not able to be filled at the [facility]; patient must fill with [facility] under current insurance plan's mandate. documented in this encounter Plan of Treatment Upcoming Encounters Date Type Department Care Team (Late st Contact Info) Description 05/24/2025 11:00 AM EDT Office Visit Radiation Oncology at [address] [phone] Jesse Mcmahan MD [facility] [place] [address] documented as of this encounter Visit Diagnoses Not on filedocumented in this encounter Care Teams Reading Efficiency Course Director Relationship Specialty Start Date End Date Bj Alves MD [address] [place] [phone] PCP - General 06/25/10 04/02/23 documented as of this encounter
--- OUTSIDE RECORDS SUMMARY | 2024-08-01 15:26 | XMS_ITS | Encounter Summary ---
Author Organization [facility] [place] [address] Care Team Providers Care Towel Sewer Name Role Phone Bj Alves MD Primary Care Provider [phone] Encounter Details Date Type Department Care Team (Late st Contact Info) Description 02/05/2023 [place]ill [place] [address] Tanner Frost MD [facility] [place] [address] Social History Tobacco Use Types Packs/Day Years [...] this encounter Progress Notes * Ama Martin [facility] - 02/05/2023 8:04 AM EDT Clinical Management Plan: Transfer of Care Specialty Pharmacy Consultation; Ama Martin RPH Comprehensive Medication Management (CMM) Sebastian Wyatt [address] [facility] [address] Telephone Information: Work Phone Not on file. Is the patient transferring services to a different Specialty Pharmacy, discontinuing the medication, or modifying current Specialty services? Transferring Services (Optional) If modifying Specialty services, patient unenrolls from: Medication: Humira 40mg/0.4mL PNKT Reason for discontinuation or transfer of services: Insurance mandate Approximate date of discontinuation, modification, or transfer of services: 02/05/23 Patient's response to therapy: unknown yet Summary of services provided by [facility]: Benefits investigation, medication access assistance, initial clinical assessment, follow up clinical assessment(s), refill management, care plan reviewprior to dispensing, and 23/02 access to an on-call specialty pharmacist Summary of on-going needs: None at this time Referral for additional services (if applicable): n/a Is patient aware of referral? no Instructions provided to patient about discharge/transfer: yes - pt aware he needs to fill with [facility] specialty pharmacy going forward Provider aware of discontinuation or transfer: Yes Patient understands no changes to current drug regimen were made at the appointment and that [facility] isproviding recommendations (summary located at top of note) for provider review and follow up. Of note, if transferring to another specialty pharmacy, a copy of patient's medication profile was offered to accepting pharmacy. Ama Martin RPH 02/05/23 8:04 AM documented in this encounter Plan of Treatment Upcoming Encounters Date Type Department Care Team (Late st Contact Info) Description 05/24/2025 11:00 AM EDT Office Visit Radiation Oncology at [address] [phone] Jesse Mcmahan MD [facility] [place] [address] documented as of this encounter Visit Diagnoses Not on filedocumented in this encounter Care Teams Towel Sewer Relationship Specialty Start Date End Date Bj Alves MD [address] [place] [phone] PCP - General 06/25/10 04/02/23 documented as of this encounter
--- OUTSIDE RECORDS SUMMARY | 2024-08-01 15:26 | XMS_ITS | Encounter Summary ---
Author Organization [facility] [place] [address] Care Team Providers Care Linen Supply Load Builder Name Role Phone Bj Alves MD Primary Care Provider [phone] Encounter Details Date Type Department Care Team (Late Contact Info) Description 08/10/2020 11:40 AM EST Ancillary Procedure Radiology Library [place] [phone] Bj Alves MD [address] [place] [phone] Social History Tobacco Use Types Packs/Day Years [...] EDT Office Visit Radiation Oncology at [address] [phone] Jesse Mcmahan MD [facility] [place] [address] documented as of this encounter Procedures Procedure Name Priority Date/Time Associated Diagnosis Comments FILM LIBRARY STORAGE ONLY CT ABDOMEN AND PELVIS Routine 08/10/2020 11:35 AM EST documented in this encounter Results * Film Library- Storage Only CT Abdomen & Pelvis (08/10/2020 11:35 AM EST) Narrative DEXTER LEZAMA - 08/10/2020 11:35 AM EST This exam is auto-finalizing. It's purpose is for storage only. Bj Alves MD [facility] FILM LIBRARY ORD ERABLES Performing Organization Address City/State/[facility] Co de Phone Number [place], [place] documented in this encounter Visit Diagnoses Not on filedocumented in this encounter Care Teams Linen Supply Load Builder Relationship Specialty Start Date End Date Bj Alves MD [address] [place] [phone] PCP - General 06/25/10 04/02/23 documented as of this encounter
--- OUTSIDE RECORDS SUMMARY | 2024-08-01 15:26 | XMS_ITS | Encounter Summary ---
Author Organization [facility], Located Within [facility] [place] [address] Care Team Providers Care Bioinformaticist Name Role Phone Bj Alves MD Primary Care Provider [phone] Encounter Details Date Type Department Care Team (Late st Contact Info) Description 01/02/2023 10:00 AM EDT Office [place] [address] Tanner Frost MD [facility] [place] [address] Psoriasis with arthropathy Social History Tobacco Use [...] Sign Reading Time Taken Comments Blood Pressure 143/88 01/02/2023 9:40 AM EDT Pulse 69 01/02/2023 9:40 AM EDT Temperature 36.3 ??C (97.3 ??F) 01/02/2023 9:40 AM ED T Respiratory Rate 20 01/02/2023 9:40 AM EDT Oxygen Saturation 98% 01/02/2023 9:40 AM EDT Inhaled Oxygen Concentration - - Weight 96.5 kg (212 lb 12.8 oz) 01/02/2023 9:40 AM EDT Height - - Body Mass Index 30.53 07/11/2020 9:32 AM EST documented in this encounter Patient Instructions * Patient Instructions* Tanner Frost MD - 01/02/2023 10:00 AM EDT BioDMARD labs today at 3L Discuss Orencia/abatacept with Dr. 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 He [...] 2012. He is quite active in practicing [employer]. He attributed joint pains in ankles and [...] He was referred to Dr. Garcia in [place] and was seeing her approximately every 3 [...] Past Medical History: Diagnosis Date ??? Cancer ([facility]) 2013 Throat tx with chemo and radiation He [...] 3.3 x 5.2 cm. 11/27/[address] [facility]. Due to severe claustrophobia only performed from the lower chest to mid thighs. No distant metastases identified. 12/12/2011 EUA with triple endoscopy and biopsy. Enrolled on RTOG 1016 randomized to cetuximab arm. Received 70 Gy completed 04/06/2012. Follow-up with Dr. Mcmahan at [facility] 06/08/2019. Addressed the [...] No recent lab testing. Gets then at [facility]. Most recent labs 09-20-2021. Reviewed at [...] in the ankles and in the knees. Review of Systems: Constitutional: No fevers. Good [...] treated with topical therapy. He lives in [place] with his who is a PA at the [employer]. 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 Hobbies and interests: Archery-traditional, competitive/shooting. Hiking. Likes to workout. Exercise: Very active. No recent travel. Toxic exposures: Radiation therapy and chemotherapy and prior tobacco use. No new medications. No known arthropod contact ECM rash. Physical Examination: No vital signs due to the telemedicine nature of this appointment. Physical exam: General appearance and movement: alert, nontoxic, no distress, healthy appearing. Gets out of chaireasily without stiffness or pain. Accompanied by HEENT: anicteric sclerae, conjunctivae clear Heart: regular rate and rhythm no extra sounds, no rubs Lungs: clear to auscultation, no rales, rubs, or wheezes Skin: Psoriatic plaques over elbows and left upper leg Vascular: 2+ pulses in all 4 extremities Neurologic: Normal mental status, speech fluent, comprehension and language intact, alert and oriented Normal muscle bulk No abnormal movements, tremors, or fasciculations 5/5 strength in B/L UE/LE Normal Gait. Musculoskeletal: Posture: erect posture Hands: No nail pitting yet there is onycholysis of several nails especially thumbs, OA changes in the PIPs and DIPs no synovial swelling or tenderness in MCPs or PIPs, neurovascular intact, no thenaratrophy; no dactylitis; no triggering of flexor tendons; no tendon friction rubs; good claw and fist Wrists: no synovial swelling or tenderness, normal flexion and extension Elbows: no effusions or nodules, full flexion/extension, pronation and supination Shoulders: full range of motion in flexion, extension, internal and external rotation Knees: Knees without inflammation Ankles: Both ankles slightly swollen and uncomfortable with palpation of the left more than the right Feet: tenderness to palpation along MTP rows bilaterally Labs: 11/08/2019: TSH 15.30, previously 23.20 August [...] 03/23/2020 NEGATIVE ??? Performing Lab 03/23/2020 [facility] ??? COVID-19 Result 03/23/2020 NEGATIVE Lab Requisition on 01/25/2020 Component Date Value ??? COVID-19 Result 01/25/2020 NEGATIVE ??? Performing Lab 01/25/2020 [facility] ??? COVID-19 Result 01/25/2020 NEGATIVE Diagnosis / Assessment: 1. Psoriasis with arthropathy ([facility]) Psoriatic arthritis. He has stopped methotrexate which was being taken at 25 mg weekly. He was having atypical inflammatory reactions after his injections. We had a long discussion about the risks of solid tumor recurrence with biologic therapies. After review with specialty pharmacy and reviewing package inserts decision was made to start abatacept 125 mg weekly self injection. Laboratory tests will be done today to look for hepatitis B and hepatitis C serologies as well as QuantiFERON TB testing. BioDMARD labs today at 3L Discuss Orencia/abatacept with Dr. Bravo 42 minutes total spent on this visit including precharting, review of laboratory, imaging data, consulting other providers, telephone communication and documentation. documented in this encounter Plan of Treatment Upcoming Encounters Date Type Department Care Team (Late st Contact Info) Description 05/24/2025 11:00 AM EDT Office Visit Radiation Oncology at [address] [phone] Jesse Mcmahan MD [facility] [place] [address] documented as of this encounter Procedures Procedure Name Priority Date/Time Associated Diagnosis Comments CRP, ACUTE INFLAMMATION Routine 01/02/2023 11:45 AM EDT Psoriasis with arthropathy SCAN, PERIPHERAL BLOOD Routine 3 11:45 AM EDT QUANTIFERON-TB GOLD Routine 01/02/2023 1 1:45 AM EDT Psoriasis with arthropathy HEMOGRAM Routine 01/02/2023 11:45 AM EDT Psoriasis with arthropathy DIFFERENTIAL, AUTOMATED Routine 01/02/2023 11:45 AM EDT Psoriasis with arthropathy HEPATITIS C ANTIBODY Routine 01/02/2023 11:45 AM EDT Psoriasis with arthropathy HEPATITIS B CORE ANTIBODY, TOTAL Routine 01/02/2023 11:45 AM EDT Psoriasis with arthropathy HEPATITIS B SURFACE ANTIBODY Routine 01/02/2023 11:45 AM EDT Psoriasis with arthropathy HEPATITIS B SURFACE ANTIGEN Routine 01/02/2023 11:45 AM EDT Psoriasis with arthropathy CBC (WITH DIFF) Routine 01/02/2023 11:45 AM EDT Psoriasis with arthropathy COMPREHENSIVE METABOLIC PANEL Routine 01/02/2023 11:45 AM EDT Psoriasis with arthropathy documented in this encounter Results * Scan, Peripheral Blood (01/02/2023 11:45 AM EDT) Pathologist [facility] Plat estimate Normal [facility] RBC Morphology Abnormal [facility] Microcyte 6-10 /HPF [facility] Ovalocytes 6-10 /HPF [facility] Tear Cell 1-5 /HPF [facility] Blood 01/02/2023 11:4 5 AM EDT 01/02/2023 12:05 PM EDT Narrative Resulting Agency Comment Spec In Lab Tanner Frost MD HEMATOLOGY ORDERABLE S [facility] [place] [address] * Differential, Automated (01/02/2023 11:45 AM EDT) Neutrophil % 67.3 % [facility] Neutrophil Absolute 5.88 1.70 - 6.10 x10(3)/[facility] Lymph % 22.2 % [facility] Lymphocytes Abs 1.9 0.9 - 3.2 x10(3)/[facility] Monocyte % 7.4 % [facility] Monocyte Abs 0.6 0.3 - 0.9 x10(3)/[facility] Eos % 1.5 % [facility] Eosinophils Abs 0.1 0.0 - 0.4 x10(3)/[facility] Basophil % 1.3 % [facility] Baso Absolute 0.1 0.0 - 0.1 x10(3)/[facility] Immature Gran % 0.30 % [facility] Comment: Immature granulocytes(IG's)percentage and absolute count will include metamyelocytes, myelocytes, and promyelocytes. Blood smears from CBCs yielding IG's will be scanned manually for concordance. If this scan disagrees with the automated IG or if promyelocytes are noted, a manual differential will be performed. Immature Gran Absolute 0.03 0.00 - 0.04 x10(3)/[facility] Blood 01/02/2023 11:4 5 AM EDT 01/02/2023 12:05 PM EDT Narrative Resulting Agency Comment Spec In Lab Tanner Frost MD HEMATOLOGY ORDERABLE S Performing Organization Address City/State/[facility] Co de Phone Number [facility] [place] [address] * (ABNORMAL) Hemogram (01/02/2023 11:45 AM EDT) White Blood Cell 8.7 4.0 - 9.5 x10(3)/mc L [facility] Red Blood Cell 6.37(H) 4.58 - 5.54 x10(6)/mc L [facility] Hemoglobin 13.3(L) 13.7 - 16.5 g/dL [facility] Hematocrit 41.8 40.5 - 48.5 % [facility] Mean Cell Volume 65.6(L) 82.9 - 93.1 fL [facility] Mean Cell Hemoglobin 20.9(L) 27.5 - 32.1 pg [facility] Mean Cell Hemoglobin Concentration 31.8(L) 32.0 - 35.7 g/dL [facility] Platelet 185 145 - 357 x10(3)/mc L [facility] RDW Standard Deviation 33.6(L) 36.0 - 45.0 fL [facility] RDW coefficient of variation 15.4(H) 11.4 - 13.8 % [facility] Mean Platelet Volume 10.0 7.6 - 12.9 fL [facility] NRBC% auto 0.0 % [facility] NRBC Absolute 0.000 0.000 - 0.000 x10(3)/mc L [facility] Blood 01/02/2023 11:4 5 AM EDT 01/02/2023 12:05 PM EDT Narrative Resulting Agency Comment Spec In Lab Tanner Frost MD HEMATOLOGY ORDERABLE S [facility] [place] [address] * Comprehensive metabolic panel (non-fasting) (01/02/2023 11:45 AM EDT) Glucose 105 65 - 199 mg/dL [facility] Comment:Diabetes: >=200 mg/d L plus symptoms Blood Urea Nitrogen 15 10 - 20 mg/dL [facility] Creatinine 0.91 0.80 - 1.50 mg/dL [facility] Sodium 140 135 - 145 mmol/L [facility] Potassium 4.0 3.5 - 5.0 mmol/L [facility] Comment: Please note: ??Patients with WBC >100,000 may have falsely elevated Potassium levels. ??For accurate Potassium quantification in these patients send serum separator tube (gold top) for subsequent determinations. ??Contact the Clinical Chemistry Laboratory if there are any questions. Chloride 104 98 - 107 mmol/L [facility] Carbon Dioxide 26 22 - 31 mmol/L [facility] Anion Gap 10 5 - 15 mmol/L [facility] Calcium 9.6 8.5 - 10.5 mg/dL [facility] Protein, Total 6.8 6.1 - 8.0 g/dL [facility] Albumin 4.2 3.2 - 5.2 g/dL [facility] Aspartate Aminotransferase 19 0 - 39 unit/L [facility] Alanine Aminotransferase 14 0 - 55 unit/L [facility] Alkaline Phosphatase 90 40 - 130 unit/L [facility] Bilirubin, Total 0.6 0.2 - 1.3 mg/dL [facility] Est Glomerular Filtration Rate 93 >=60 mL/min/1. 73 m?? [facility] Comment: This patient's estimated GFR [...] In Lab Tanner Frost MD CHEMISTRY ORDERABLES Performing Organization Address [facility] Co de Phone Number [facility] [place] [address] * CRP, acute inflammation (01/02/2023 11:45 AM EDT) C-Reactive Protein 4.7 <=4.9 mg/L [facility] Blood 01/02/2023 11:4 5 AM EDT 01/02/2023 12:05 PM EDT Narrative Resulting Agency Comment Spec In Lab Tanner Frost MD CHEMISTRY ORDERABLES Performing Organization Address City/[facility] Co de Phone Number [facility] [place] [address] * QuantiFERON-TB Gold (01/02/2023 11:45 AM EDT) Quantiferon Nil 0.145 IU/mL [facility] QFT TB Ag1-Nil -0.079 IU/mL [facility] QFT TB Ag2-Nil -0.029 IU/mL [facility] Quantiferon Mitogen-Nil 9.855 IU/mL [facility] Quantiferon-TB Gold Negative Negative [facility] Quantiferon Tb Interp M. tuberculosis infection NOT likely A negative specimen should have a TB1 Ag minus Nil value and TB2 Ag minus Nil value of less than 0.35 IU/mL OR a TB1 Ag minus Nil or TB2 Ag minus Nil value greater than or equal to 0.35 IU/mL AND a TB Ag minus Nil value from the same tube of less than 25% of the Nil value. A negative specimen must also have a mitogen minus Nil value greater than or equal to 0.5 IU/mL. A negative QFT-Plus result does not preclude the possibility of M. tuberculosis infection. False negative results can occur due to stage of infection (specimen obtained prior to the development of immune response), co-morbid conditions which affect immune function, or other immunological factors. [facility] Blood 01/02/2023 11:4 5 AM EDT 01/05/2023 7:36 AM EDT Narrative Resulting Agency Comment Spec In Lab Tanner Frost MD CHEMISTRY ORDERABLES Performing Organization Address [facility] Co de Phone Number [facility] [place] [address] * Hepatitis C Antibody (01/02/2023 11:45 AM EDT) Hepatitis C Antibody Negative Negative [facility] Blood 01/02/2023 11:4 5 AM EDT 01/02/2023 12:05 PM EDT Narrative Resulting Agency Comment Spec In Lab Tanner Frost MD CHEMISTRY ORDERABLES Performing Organization Address [facility] Co de Phone Number [facility] [place] [address] * Hepatitis B Surface Antibody (01/02/2023 11:45 AM EDT) Hepatitis B Surface Antibody, Quantitative <3.5 IU/L [facility] Comment: HepB Surface Ab Quant: Unvaccinated: < 8.5 IU/L Vaccinated: >= 11.5 IU/L Hepatitis B Surface Antibody Negative [facility] Comment: Patient is presumed to be not vaccinated or immune to HBV infection. Expected Results: Vaccinated: Positive Unvaccinated: Negative Blood 01/02/2023 11:4 5 AM EDT 01/02/2023 12:05 PM EDT Narrative Resulting Agency Comment Spec In Lab Tanner Frost MD CHEMISTRY ORDERABLES [facility] [place] [address] * Hepatitis B Surface Antigen (01/02/2023 11:45 AM EDT) Hepatitis B Surface Antigen Negative Negative [facility] Blood 01/02/2023 11:4 5 AM EDT 01/02/2023 12:05 PM EDT Narrative Resulting Agency Comment Spec In Lab Tanner Frost MD CHEMISTRY ORDERABLES Performing Organization Address City/[facility] Co de Phone Number [facility] [place] [address] * Hepatitis B Core Antibody, Total (01/02/2023 11:45 AM EDT) Hepatitis B Core Antibody Negative Negative [facility] Blood 01/02/2023 11:4 5 AM EDT 01/02/2023 12:05 PM EDT Narrative Resulting Agency Comment Spec In Lab Tanner Frost MD CHEMISTRY ORDERABLES Performing Organization Address City/[facility] Co de Phone Number [facility] [place] [address] documented in this encounter Visit Diagnoses Diagnosis Psoriasis with arthropathy Psoriatic arthropathy documented in this encounter Care Teams Bioinformaticist Relationship Specialty Start Date End Date Bj Alves MD [address] [place] [phone] PCP - General 06/25/10 04/02/23 documented as of this encounter
--- OUTSIDE RECORDS SUMMARY | 2024-08-01 15:26 | XMS_ITS | Encounter Summary ---
Author Organization [facility] [place] [address] Care Team Providers Care Contact Acid Plant Operator Helper Name Role Phone Bj Alves MD Primary Care Provider [phone] Encounter Details Date Type Department Care Team (Late st Contact Info) Description 07/03/2022 Telephone Radiation Oncology at [address] [phone] Marcelina Edwards RN Social History Tobacco Use Types Packs/Day [...] encounter Miscellaneous Notes * Telephone Encounter - Marcelina Edwards RN - 07/03/2022 1:53 PM EST Research Nurse Telephone Note [facility] [place] [place] RTOG 1016 : Phase III 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 Randomized to arm 2 with cetuximab Telephone call to patient to review plan for his 10 year dental evaluation required for the study. He states that he recently had 1 tooth removed, front right side. He is wearing a temporary partialplate for this. He plans to go back soon for cement casting for this. His dentist is Dr Jonathan Randle at [facility]. He gave me permission to contact them to arrange for this. I called this office at [phone]. The call went to voice mail stating they are closed and to leave a message. I left message stating I wish to speak to them regarding a pt that needs a dental evaluation and I need their fax number or email address to send the evaluation sheet to them that needs to be filled out. * Telephone Encounter - Marcelina Edwards RN - 07/03/2022 1:36 PM EST documented in this encounter Plan of Treatment Upcoming Encounters Date Type Department Care Team (Late st Contact Info) Description 05/24/2025 11:00 AM EDT Office Visit Radiation Oncology at [address] [phone] Jesse Mcmahan MD [facility] [place] [address] documented as of this encounter Visit Diagnoses Not on filedocumented in this encounter Care Teams Contact Acid Plant Operator Helper Relationship Specialty Start Date End Date Bj Alves MD [address] [place] [phone] PCP - General 06/25/10 04/02/23 documented as of this encounter
--- OUTSIDE RECORDS SUMMARY | 2024-08-01 15:26 | XMS_ITS | Encounter Summary ---
Author Organization [facility] [place] [address] Care Team Providers Care Piece Marker Small Arms Name Role Phone Bj Alves MD Primary Care Provider [phone] Encounter Details Date Type Department Care Team (Late st Contact Info) Description 07/02/2022 10:00 AM EST Office Visit Radiation Oncology at [address] [phone] Jesse Mcmahan MD [facility] [address] Cancer of base of tongue Social History [...] Sign Reading Time Taken Comments Blood Pressure 141/88 07/02/2022 10:05 AM EST Pulse 75 07/02/2022 10:05 AM EST Temperature 36.7 ??C (98.1 ??F) 07/02/2022 10:[address] Respiratory Rate 18 07/02/2022 10:05 AM EST Oxygen Saturation 99% 07/02/2022 10:05 AM EST Inhaled Oxygen Concentration - - Weight 98.2 kg (216 lb 6.4 oz) 07/02/2022 10:05 AM EST Height - - Body Mass Index 31.05 07/11/2020 9:32 AM EST documented in this encounter Progress Notes * Norma Duff MD - 07/02/2022 10:00 AM EST Radiation Oncology Follow Up Note [...] Staging: ?? 12/09/11 CT H&N with contrast ([facility]): Mixed attenuation mass with lare low density areas suggesting necrotic change present deep to anterior aspect L SCM. Mass smoothly marginated, max 3.3 x 5.2 cm. ?? 11/27/11 PET-CT ([facility]): Despite premedication, severe claustrophobia allowed [...] ??? 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 DIFFICULT [employer]WAY [address] ??? Dysphagia, unspecified 787.20 Interval History: Sebastian Wyatt returns for 10 year follow-up appointment. Pain: No pain in head and neck. Some shooting pain from left neck to hand, noted occasionally. He discussed possible surgical intervention for concern for impinged nerve, but declined at that time. Psoriatic arthritis in achilles tendon and knuckles, on methotrexate. Consider changing to biologic agent. Neck sx: Continues to feels left neck tightness but he continues to work with ROM exercises. Deniesnew lumps or bumps. Mouth: Recent thrush in the last month- almost completely resolved with nystatin and fluconazole. Xerostomia: Mild xerostomia, needs to wash down with water. Denies dysgeusia/ Sensory deficits: Previously noted left hand numbness/tingling has improved but denies today. Dental: Notes requiring tooth extraction 3 months ago- post currently in place. Physical Examination: Vitals: 07/02/22 1005 BP: 141/88 Patient Position: Sitting Pulse: 75 Resp: 18 Temp: 36.7 ??C (98.1 ??F) TempSrc: Temporal SpO2: 99% Weight: 98.2 kg (216 lb 6.4 oz) Physical Exam Constitutional: He is oriented to person, place, and time. He appears well- developed and well-nourished. HENT: Visual inspection of OC and OP revealed no evidence of suspicious masses or lesions. Palpation reveals posterior aspect of oral tongue soft without masses or lesions. Oral tongue slightly deviates mildly to left on extrusion; altered sensation left lateral tongue. Good dentition. Moisture moderate. Neck: No tracheal [...] carcinoma of the BOT. MARCO. No new symptoms or changes noted. 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 He continues to see a dentist regularly and we encouraged use of supplemental fluoride. ?? FU: follow up with radiation oncology per [facility] algorithm Monse Duff MD PGY3 Attending Statement: I saw the patient with Dr. Duff and agree with the history, physical, assessment, and plan as stated. 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
--- OUTSIDE RECORDS SUMMARY | 2024-08-01 15:26 | XMS_ITS | Encounter Summary ---
Author Organization [facility] [place] [address] Care Team Providers Care Director Of People Name Role Phone Bj Alves MD Primary Care Provider [phone] Reason for Visit * Reason Comments Follow-up Psoriatic arthritis * Consultation (Routine) - Closed Specialty Diagnoses / Procedures Referred By Contac t Referred To Contact Rheumatology Diagnoses arthritis Procedures consult and treat Jes Brown APRN [address] [place] [phone] [facility] Rheumatology [address] [place] [phone] Referral ID Status Reason Start Date Expiration Date Visits Re quested Visits Authorized [id number] Closed 02/06/2021 02/06/2022 1 1 Encounter Details Date Type Department Care Team (Latest Contact Info) Description 02/21/2021 1:00 PM EDT TH Visit (TeleHealth) [place] [phone] Tanner Frost MD [facility] [place] [address] Psoriasis with arthropathy Social History Tobacco Use [...] * Patient Instructions* Tanner Frost MD - 02/21/2021 1:00 PM EDT Start sulfasalazine 500 mg daily for 1 week and then increase to 500 mg twice daily Laboratory monitoring tests in 1 month. documented in this encounter Progress Notes * Tanenr Frost MD - 02/21/2021 1:00 PM EDT This is a telemedicine visit that was performed with the originating site at that patients home address (please see electronic health record for applicable address) and the distant site at my [facility] office. Verbal consent to participate in telephone visit was obtained by Tanner Frost MD or the roomingassistant as documented in their note. This visit [...] recovering throat CA.Taking Celebrex with good results This is Salvador's first visit to [facility] Rheumatology. I saw him as a new patient evaluation at [facility] for evaluation of psoriatic arthritis. He had been referred by his Primary Care Provider Bj Alves for evaluation of possible psoriatic arthritis. He was being treated with Otezla as monotherapy. Articular pain has been treated with Celebrex and methotrexate which provedto be ineffective. Referral is in part to determine if he may be a candidate for a biologic agent. Previously cared for by Dr. Garcia. 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 Reason for referral is uncontrolled psoriatic arthritis on Otezla. 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 He was diagnosed with psoriasis 15 [...] 2012. He is quite active in practicing [employer]. He attributed joint pains in ankles and [...] He was referred to Dr. Garcia in [place] and was seeing her approximately every 3 [...] Past Medical History: Diagnosis Date ??? Cancer ([facility]) 2012 Throat tx with chemo and radiation [...] 3.3 x 5.2 cm. 11/27/[address] [facility]. Due to severe claustrophobia only performed from the lower chest to mid thighs. No distant metastases identified. 12/12/2011 EUA with triple endoscopy and biopsy. Enrolled on RTOG 1016 randomized to cetuximab arm. Received 70 Gy completed 04/06/2012. Follow-up with Dr. Mcmahan at [facility] 06/08/2019. Addressed the following ongoing symptoms: Dysphagia, [...] does have some plaques on his elbows. Review of Systems: Constitutional: No fevers. Good [...] He has previously been evaluated by Dr. Lau. He does have fingernail changes. Vascular: No vasomotor changes in the distal upper or lower extremities in response to cold weather. No history of blood clots. No easy bruising. Musculoskeletal joint pain as in HPI. He does have myalgias as well. Morning stiffness can last throughout the day. No muscle weakness. Has had history of back pain. Neurologic: He does have trismus. No difficulty [...] treated with topical therapy. He lives in [place] with his who is a PA at the [employer] access hospital. 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 Hobbies and interests: Archery-traditional, competitive/shooting. Hiking. [...] 03/23/2020 NEGATIVE ??? Performing Lab 03/23/2020 [facility] ??? COVID-19 Result 03/23/2020 NEGATIVE Lab Requisition on 01/25/2020 Component Date Value ??? COVID-19 Result 01/25/2020 NEGATIVE ??? Performing Lab 01/25/2020 [facility] ??? COVID-19 Result 01/25/2020 NEGATIVE Diagnosis / Assessment: 1. Psoriasis with arthropathy ([facility]) Clinical presentation is consistent with psoriatic arthritis. He initially presented to me on Otezla which was not addressing his plaque psoriasis on the elbows or the left upper leg and is not really doing anything for the inflammation he is experiencing in both ankles and MTPs. I opted to try a combination therapy with Otezla and methotrexate at a higher dose to try to improve therapeutic effect on psoriatic arthritis.. He had been evaluated for possibility of gout given the location of the inflammatory manifestations. He was treated acutely for gout without much response. He was additionally on allopurinol for period of time. His uric [...] a problem with this step. Plan: Continue Otezla. Start sulfasalazine 500 mg daily for 1 week and then increase to 500 mg twice daily Check uric acid level locally Please note that this note was completed with the assistance of voice recognition software. As result unintentional escrow officer errors and/or typographical mistakes are possible. If you notice errors please bring them to my attention. If any area requires explanation or clarification please do not hesitate to contact me. 45 minutes total spent on this visit including precharting, review of laboratory, imaging data, consulting other providers, telephone communication and documentation. documented in this encounter Plan of Treatment Upcoming Encounters Date Type Department Care Team (Late st Contact Info) Description 05/24/2025 11:00 AM EDT Office Visit Radiation Oncology at [address] [phone] Jesse Mcmahan MD [facility] [place] [address] documented as of this encounter Visit Diagnoses Diagnosis Psoriasis with arthropathy Psoriatic arthropathy documented in this encounter Care Teams Director Of People Relationship Specialty Start Date End Date Bj Alves MD [address] [place] [phone] PCP - General 06/25/10 04/02/23 documented as of this encounter
--- OUTSIDE RECORDS SUMMARY | 2024-08-01 15:26 | XMS_ITS | Encounter Summary ---
Author Organization [facility] [place] [address] Care Team Providers Care Ux Design Manager Name Role Phone Bj Alves MD Primary Care Provider [phone] Encounter Details Date Type Department Care Team (Late st Contact Info) Description 02/25/2023 Telephone [place] [phone] Radha Reese RN Social History Tobacco Use [...] Telephone Encounter - Radha Reese RN - 02/25/2023 2:45 PM EDT RTC to the [facility],Spoke to the pharmacist regarding Humira, talked to Kerri to verify the Provider is aware/actively monitoring. * Telephone Encounter - Chapis Pang - 02/25/2023 2:26 PM EDT [facility] calling stating that there is a drug disease interaction with the Humira and is requesting to speak to a nurse and to chava this as urgent. Please call to assist. Thank you * Telephone Encounter - Radha Reese RN - 02/25/2023 10:27 AM EDT Copied from CRM #[id number]. Topic: Specialty Dept CRMs - Generic Call >> Feb 25, 2023 9:59 AM Natividad Neal wrote: Specialist: Tanner Frost Relationship (if other than patient-full name): Reason for Call: Patient is calling regarding his Rx adalimumab (Humira,CF, Pen) 40 mg/0.4 mL Pen Injector Kit, patient stated the pharmacy had sent a fax requesting additional information. Patient stated he is due for his medication on 03/05/2023 and is asking if we can get the information to the pharmacy [address] Sent to specialty pharmacy Ama Martin RPh/Laura Goodman CPhT. documented in this encounter Plan of Treatment Upcoming Encounters Date Type Department Care Team (Late st Contact Info) Description 05/24/2025 11:00 AM EDT Office Visit Radiation Oncology at [address] [phone] Jesse Mcmahan MD [facility] [place] [address] documented as of this encounter Visit Diagnoses Not on filedocumented in this encounter Care Teams Ux Design Manager Relationship Specialty Start Date End Date Bj Alves MD [address] [place] [phone] PCP - General 06/25/10 04/02/23 documented as of this encounter
--- OUTSIDE RECORDS SUMMARY | 2024-08-01 15:26 | XMS_ITS | Encounter Summary ---
Author Organization [facility] [address] Care Team Providers Care Copy Manager Name Role Phone Unknown Primary Care Provider Unavailabl e Encounter Details Date Type Department Care Team (Late st Contact Info) Description 05/11/2023 Telephone [place] [address] Radha Reese RN Social History Tobacco Use [...] Telephone Encounter - Radha Reese RN - 05/11/2023 5:36 PM EDT RTC to patient, no answer. Left message on secure voicemail asking patient to call nurse back to discuss his concerns/pain. * Telephone Encounter - Radha Reese RN - 05/11/2023 5:27 PM EDT Copied from [facility] #[id number]. Topic: Specialty Dept CRMs - Triage >> May 11, 2023 4:33 PM Jabari Sebastian wrote: Triage Message Specialist: Dr. Frost Relationship [...] in new locations. Please call to discuss. documented in this encounter Plan of Treatment Upcoming Encounters Date Type Department Care Team (Late st Contact Info) Description 05/24/2025 11:00 AM EDT Office Visit Radiation Oncology at [address] [phone] Jesse Mcmahan MD [facility] [place] [address] documented as of this encounter Visit Diagnoses Not on filedocumented in this encounter Care Teams Copy Manager Relationship Specialty Start Date End Date Unknown None PCP - General 04/03/23 07/21/23 documented as of this encounter
--- OUTSIDE RECORDS SUMMARY | 2024-08-01 15:26 | XMS_ITS | Encounter Summary ---
Author Organization [facility] [place] [address] Care Team Providers Care Ceramic Worker Name Role Phone Unknown Primary Care Provider Quinn e Encounter Details Date Type Department Care Team (Late st Contact Info) Description 04/22/2023 [place] [address] Tanner Frost MD [facility] [place] [address] Social History Tobacco Use Types Packs/Day Years [...] Telephone Encounter - Tanner Frost MD - 04/23/2023 12:46 PM EDT Thank you. documented in this encounter Plan of Treatment Upcoming Encounters Date Type Department Care Team (Late st Contact Info) Description 05/24/2025 11:00 AM EDT Office Visit Radiation Oncology at [address] [phone] Jesse Mcmahan MD [facility] [address] documented as of this encounter Visit Diagnoses Not on filedocumented in this encounter Care Teams Ceramic Worker Relationship Specialty Start Date End Date Unknown None PCP - General 04/03/23 07/21/23 documented as of this encounter
--- OUTSIDE RECORDS SUMMARY | 2024-08-01 15:26 | XMS_ITS | Encounter Summary ---
Author Organization [facility] [place] [address] Care Team Providers Care Production Dispatcher Name Role Phone Unknown Primary Care Provider Unavailabl e Reason for Visit * Reason Onset Date Comments Prior Authorization 05/29/2023 Encounter Details Date Type Department Care Team (Late st Contact Info) Description 05/29/2023 Telephone Rheumatology at [facility] [place] [phone] Bree Mantilla RNmolder wax ball Social History Tobacco Use Types Packs/Day Years [...] Telephone Encounter - Bree Mantilla RN - 05/29/2023 11:20 AM EDT Copied from [facility] #[id number]. Topic: Specialty Dept CRMs - Generic Call >> May 29, 2023 11:03 AM Paloma Regalado wrote: Specialist: Tanner Frost MD Relationship (if other than patient-full name): self Reason for Call: Patient calling to state that the insurance called and stated that the Orencia is approved and would like to know when it will be called in. Please call to advise. documented in this encounter Plan of Treatment Upcoming Encounters Date Type Department Care Team (Late st Contact Info) Description 05/24/2025 11:00 AM EDT Office Visit Radiation Oncology at [address] [phone] Jesse Mcmahan MD [facility] [address] documented as of this encounter Visit Diagnoses Not on filedocumented in this encounter Care Teams Production Dispatcher Relationship Specialty Start Date End Date Unknown None PCP - General 04/03/23 07/21/23 documented as of this encounter
--- OUTSIDE RECORDS SUMMARY | 2024-08-01 15:26 | XMS_ITS | Encounter Summary ---
Author Organization [facility] [place] [address] Care Team Providers Care Dependency Program Director Name Role Phone Bj Alves MD Primary Care Provider [phone] Reason for Visit * Reason Comments Follow-up Psoriatic arthritis Encounter Details Date Type Department Care Team (Latest Contact Info) Description 09/19/2021 2:30 PM EST TH Visit (TeleHealth) [place] [phone] Tanner Frost MD [facility] [place] [address] Psoriasis with arthropathy Social History Tobacco Use [...] * Patient Instructions* Tanner Frost MD - 09/19/2021 3:03 PM EST Methotrexate monitoring labs to be done today. Standing lab orders to be sent to [facility] in [facility]. Next appointment to be in person in 3 months. If methotrexate monitoring labs are normal will plan on increasing subcutaneously administered methotrexate to 1.0 or 25 mg weekly. documented in this encounter Progress Notes * Tanner Frost MD - 09/19/2021 2:30 PM EST This is a telemedicine visit that was performed with the originating site at that patients home address (please see electronic health record for applicable address) and the distant site at my [facility] office. Verbal consent to participate in telephone [...] results This is Salvador's first visit to [facility] Rheumatology. I saw him as a new patient evaluation at [facility] for evaluation of psoriatic arthritis. He [...] 2012. He is quite active in practicing [employer]. He attributed joint pains in ankles and [...] He was referred to Dr. Garcia in [place] and was seeing her approximately every 3 [...] Past Medical History: Diagnosis Date ??? Cancer ([facility]) 2012 Throat tx with chemo and [...] 5.2 cm. 11/27/[address] [facility]. Due to severe claustrophobia only performed from the lower chest to mid thighs. No distant metastases identified. 12/12/2011 EUA with triple endoscopy and biopsy. Enrolled on RTOG 1016 randomized to cetuximab arm. Received 70 Gy completed 04/06/2012. Follow-up with Dr. Mcmahan at [facility] 06/08/2019. Addressed the following ongoing symptoms: Dysphagia, [...] No interval health events. No new medications. Review of Systems: Constitutional: No fevers. Good [...] treated with topical therapy. He lives in [place] with his who is a PA at the [employer]. 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 Hobbies and interests: Archery-traditional, competitive/shooting. Hiking. [...] 03/23/2020 NEGATIVE ??? Performing Lab 03/23/2020 [facility] ??? COVID-19 Result 03/23/2020 NEGATIVE Lab Requisition on 01/25/2020 Component Date Value ??? COVID-19 Result 01/25/2020 NEGATIVE ??? Performing Lab 01/25/2020 [facility] ??? COVID-19 Result 01/25/2020 NEGATIVE Diagnosis / Assessment: 1. Psoriasis with arthropathy ([facility]) Clinical presentation is consistent with psoriatic arthritis. He has stopped Otezla and has not noted any worsening of his psoriasis. He is currently on methotrexate subcutaneously administered 20 mg. He has not had methotrexate monitoring labs for quite sometime. I placed standing lab orders to be sent to [facility] in [facility]. He willbe getting his laboratory test done tomorrow. Due to the fact that the methotrexate as monotherapy appears to be working fairly well yet he does have some what sound to be inflammatory manifestationsin the right hand small joints in his second and third fingers I would like to increase him to 25 mg or 1.0 cc SC. he had been evaluated for possibility of gout given the location of the inflammatorymanifestations. He was treated acutely for gout without [...] considered starting sulfasalazine. I contacted Dr. Mcmahan whodid not have a problem with this step. Plan: Continue off of apremilast Continue methotrexate 0.8 cc subcutaneously administered. Get methotrexate monitoring labs tomorrow. Consider increasing to 1.0 cc methotrexate Check uric acid level locally Please note that this note was completed with the assistance of voice recognition software. As result unintentional software engineer web services errors and/or typographical mistakes are possible. If you notice errors please bring them to my attention. If any area requires explanation or clarification please do not hesitate to contact me. 38 minutes total spent on this visit including precharting, review of laboratory, imaging data, consulting other providers, telephone communication and documentation. documented in this encounter Plan of Treatment Upcoming Encounters Date Type Department Care Team (Late st Contact Info) Description 05/24/2025 11:00 AM EDT Office Visit Radiation Oncology at [address] [phone] Jesse Mcmahan MD [facility] [place] [address] documented as of this encounter Visit Diagnoses Diagnosis Psoriasis with arthropathy Psoriatic arthropathy documented in this encounter Care Teams Dependency Program Director Relationship Specialty Start Date End Date Bj Alves MD [address] [place] [phone] PCP - General 06/25/10 04/02/23 documented as of this encounter
--- OUTSIDE RECORDS SUMMARY | 2024-08-01 15:27 | XMS_ITS | Encounter Summary ---
Author Organization [facility] [place] [address] Care Team Providers Care Lead Software Test Engineer Name Role Phone Bj Alves MD Primary Care Provider [phone] Encounter Details Date Type Department Care Team (Late Contact Info) Description 04/21/2019 Specialty [place] [phone] Vasyl Poole Social History Tobacco Use Types Packs/Day Years [...] as of this encounter Progress Notes * Vasyl Poole - 04/21/2019 12:57 PM EDT A user error has taken place: encounter opened in error, closed for administrative reasons. documented in this encounter Plan of Treatment Upcoming Encounters Date Type Department Care Team (Late st Contact Info) Description 05/24/2025 11:00 AM EDT Office Visit Radiation Oncology at [address] [phone] Jesse Mcmahan MD [facility] [place] [address] documented as of this encounter Visit Diagnoses Not on filedocumented in this encounter Care Teams Lead Software Test Engineer Relationship Specialty Start Date End Date Bj Alves MD [address] [place] [phone] PCP - General 06/25/10 04/02/23 documented as of this encounter
--- OUTSIDE RECORDS SUMMARY | 2024-08-01 15:27 | XMS_ITS | Encounter Summary ---
[place] [address] Care Team Providers Care Hvac Technician Residential Name Role Phone Bj Alves MD Primary Care Provider [phone] Reason for Visit * Auth/Cert Specialty Diagnoses / Procedures Referred By Sheila colvin Referred To Contact Diagnoses AAA Procedures PRO ENDOVASC REPAIR DEPLOYMENT [id number] ENDOGRAFT @EVG, AORTA/ILIAC ART RPR [id number] ENDOGRAFT; ANEURX Referral ID Status Reason Start Date Expiration Date Visits Re quested Visits Authorized [id number] 1 1 Encounter Details Date Type Department Care Team (Late st Contact Info) Description 01/28/2019 8:26 AM EDT Anesthesia [place] [id number] Elia Jacobo MD Cobb, Janet L, CLAIMS SERVICE REPRESENTATIVE [address] [facility], -1 [place] [address] Anesthesia Record Procedure Summary Procedure Name Responsible Anesthesiologist Anesthesia Start Time Anesthesia Stop Time @EVG, AORTA/ILIAC ART RPR [id number] ENDOGRAFT; ANEURX (WRVU 29.58) (Abdomen) Elia Jacobo MD 01/28/19 0826 01/28/19 1107 Events Date Time Event Comment 01/28/2019 0758 0826 AN Verify 0826 Start 0826 An Start Data 0830 An Induction 0835 An Intubation 0843 Anesthesia Ready 0858 ABG Data Arterial Blood Gas result: pH 7.357 pCO2 42 pO2 214.6 %O2 Sat 100 FiO2 55 HCO3 23 BE -2.5 Hb 12.6 K 3.82 Glucose 126 Lactate 2.76 0917 Procedure Start 1054 Extubation/LMA Out 1058 an stop data 1102 Recovery or ICU Handoff Rachel ent care was transferred to the destination unit staff after review of the patient's medical history, current anesthetic/surgical status and plan, according to the Provider Handoff Checklist. 1107 Stop Meds Name Total Midazolam 2 mg fentaNYL 200 mcg IV Lidocaine 180 mg Propofol 270 mg Rocuronium 50 mg Heparin 13,000 Units Protamine 50 mg Dexamethasone 4 mg Ondansetron 4 mg clindamycin (CLEOCIN) 900mg in dextrose 5% 50mL 900 mg PHENYLephrine INF 1,860 mcg Esmolol 10 mg Labetalol 20 mg lactated ringers infusion 500 mL Sodium Chloride 0.9% 1,000 mL * Agents Name O2 Air N2O Sevoflurane (et) * Blood No blood administrations on file. Lines, Drains, and Airways Type Details Placement Removal (RETIRED) Port A Cath 01/09/12; Chest 01/09/12 0 000 by Zaira Sheikh APRN (RETIRED) Power Port 01/09/12; 1035; [facility] st; Right; 8F LP D[address] CT Port lot# [id number] 01/09/12 1035 by Marion Huerta RN Incision 12/12/11; other (see comments) (oropharynx - biopsies); 03/31/22 ([employer] cleanup utility RA#[id number]); 1715 ([employer] cleanup utility RA#[id number]) 12/12/11 0000 by Tara Cabrera RN 03/31/22 1715 by Sathish Burkett (RETIRED) Peripheral IV Line - Single Lumen 01/28/19; 0745; metacarpal vein (top of hand), left; wjob-rry-bdsarc catheter system; 18 gauge; 05/08/21 ([employer] Cleanup utility RA#[id number]); 1650 ([employer] Cleanup utility RA#[id number]) 01/28/19 0745 by Jennifer Gordon RN 05/08/21 1650 by Cade Brown ETT Mask Ventilation: Adjunct (2); ETT Type: Cuffed, Oral; ETT Size: 7.5 mm; Bronchial Karishma: 7 Fr; Mac Blade: 4; Indirect: Video; Notes: Asleep, Pre-O2, Stylette; Attempts: 1; Laryngoscopy Grade: 1; ETT Placement Verified By: Auscultation, Capnometry; Secured at Teeth: 23 cm; Inserted by: Ree; Removal Date: 01/28/19; Removal Time: 1054 01/28/19 0840 by Tyson Keenan MD 01/28/19 1054 by Tyson Keenan MD Urethral Catheter 01/28/19; 0840; Surg adrián longer than 2 hours, Physician order; indwelling double lumen catheter; hydrophilic coated, latex; 14; inserted at this facility; 1; 5; 10; none; drainage bag to dependent drainage; 01/28/19; 1821 01/28/19 0840 by Unique Santana RN 01/28/19 1821 by Pat Robertson LNA (RETIRED) Peripheral IV Line - Single Lumen 01/28/19; 0851; metacarpal vein (top of hand), right; 18 gauge; 01/29/19; 0559 01/28/19 0851 by Tyson Keenan MD 01/29/19 0559 by Ivis Meeks RN Arterial Line 01/28/19; 0851; radi al artery, left; 20 gauge; Ree; Sterile Prep, Sterile Gloves; 01/28/19; 1540 01/28/19 0851 by Tyson Keenan MD 01/28/19 1540 by Sapna Valadez RN Incision 01/28/19; 0917; groi n; other (see comments) (puncture sites); 03/31/22 ([employer] cleanup utility RA#[id number]); 1715 ([employer] cleanup utility RA#[id number]) 01/28/19 0917 by Unique Santana RN 03/31/22 1715 by Sathish Burkett documented in this encounter Social History Tobacco [...] OR Notes * Anesthesia Postprocedure Evaluation - Tyson Keenan MD - 01/28/2019 11:07 AM EDT Department of Anesthesiology Post-procedure Note Patient: Sebastian Wyatt Procedure Summary Date: 01/28/19 Room / Location: [address] MAIN OR Anesthesia Start: 825 Anesthesia Stop: 1106 Procedures: @EVG, AORTA/ILIAC ART RPR [id number] ENDOGRAFT; ANEURX (N/A Abdomen) PERC ACCESS & CLOSURE OF FEMORAL ARTER FOR DELIVERY OF ENDOGRAFT THROUGH LARGE SHEATH (Bilateral Groin) Diagnosis: (AAA) Surgeon: Brandon Gregorio MD Responsible Provider: Elia Jacobo MD Anesthesia Type: general ASA Status: 3 All Anesthesia Providers: Anesthesiologist: Elia Jacobo MD [place] Singer: Tyson Keenan MD Vitals Value Taken Time BP 149/87 01/28/2019 11:02 AM Temp Pulse 68 01/28/2019 11:06 AM Resp 19 01/28/2019 11:06 AM SpO2 98 % 01/28/2019 11:06 AM Pain Level Vitals shown include unvalidated device data. Patient Location: PACU/[facility] Level of Consciousness: Awake and Alert Pain Management: Satisfactory Analgesia PONV: None Cardiovascular Status: Hemodynamically Stable Respiratory Status: Stable Respiratory Status Postoperative Fluid Status: Intravascular EUvolemia Possible Anesthetic Complications: NONE apparent at time of evaluation Final Primary Anesthesia Type: General (The anesthetic type performed was the same as planned.) Comments: * Anesthesia Preprocedure Evaluation - Elia Jacobo MD - 01/27/2019 1:21 PM EDT Pre-Anesthesia Evaluation for: Sebastian Wyatt a 63 y.o. male. Procedure(s): @EVG, AORTA/ILIAC ART RPR [id number] ENDOGRAFT; ANEURX Patient Active Problem List Diagnosis ??? Benign prostatic hyperplasia with lower urinary tract symptoms ??? Depression ??? AAA (abdominal aortic aneurysm) without rupture ??? Congenital nevus ??? Dysphagia, unspecified(787.20) ??? DIFFICULT AIRWAY ??? Claustrophobia Needs sedation for scans ??? 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 Obesity (BMI 30.0-34.9) ??? Hyperlipidemia ??? Hypertension ??? Glucose intolerance (impaired glucose tolerance) ??? Hypothyroidism ??? GERD (gastroesophageal reflux disease) ??? Psoriasis with arthropathy ??? LIBERTY on CPAP ??? Anxiety ??? Back pain, chronic ??? Thalassemia minor ??? 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 1 PPD x 38 yrs. Quit 08/2011. Developed odynophagia early 11/2011, abx did not improve, . Referred to ENT. He does note some coughing in the morning ove the past year. Stagin12/09/11 CT H&N with contrast (NCH): Mixed attenuation mass with lare low density areas suggesting necrotic change present deep to anterior aspect L SCM. Mass smoothly marginated, max 3.3 x 5.2 cm. 11/27/11 [place] Despite premedication, severe claustrophobia allowed this can [...] cetuximab arm. Received 70 Gy completed 04/06/12 Past Medical History: Diagnosis Date ??? Acid reflux ??? Arthritis ??? Injury of left knee 2014 fall at work ??? Psoriasis ??? Psoriatic arthritis ??? Thyroid dysfunction Past Surgical History: Procedure Laterality Date ??? CARPAL TUNNEL RELEASE rt ??? PET SCAN (SCAN) 01/16/2012 PET SCAN performed by RESOURCE, ANESTHESIA-IRIS at [facility] ??? PET SCAN (SCAN) 07/06/2012 PET SCAN performed by Anesthesia-Iris Resource at [facility] ??? PRO LARYNGOSCOPY, DIRCT, OP SCOP, EXC TUMR 12/12/2011 LARYNGOSCOPY, DIRECT, EXCISION OF TUMOR, CORD STRIPPING, MICRO performed by BECKY GANN at [facility] MAIN OR ??? PRO LARYNGOSCOPY, DIRCT, OP SCOPE, BIOPSY 12/12/2011 LARYNGOSCOPY, MICROSCOPE, WITH BIOPSY performed by BECKY GANN at [facility] MAIN OR Social History Tobacco Use ??? Smoking status: Former Smoker Packs/day: 1.00 Years: 38.00 Pack years: 38.00 Last attempt to quit: 08/06/2011 Years since quittin.4 ??? Smokeless tobacco: Never Used Substance Use Topics ??? Alcohol use: Yes Alcohol/week: 0.6 oz Types: 1 Glasses of wine per week Comment: rarely one glass of wine occasionally Social History Substance and Sexual Activity Drug Use Not on file No Known Allergies Medications: MAR and/or home medications have been reviewed. Physical Exam: There were no vitals filed for this visit. There is no height or weight on file to calculate BMI. Airway Assessment: Mallampati: IV TM distance: >3 FB Neck ROM: full Cardiovascular Assessment: cardiovascular exam normal Pulmonary Assessment: pulmonary exam normal Dental Assessment: - normal exam Misc Assessment: Anesthesia Plan: ASA 3 general, with a(n) intravenous induction PRELIMINARY NOTE PER CHART REVIEW (Prior to Patient Exam): Sebastian Wyatt is a 63 y.o. male with a 5.2 x 5.5 cm infrarenal AAA presenting for the following procedure(s): Procedure(s): @EVG, AORTA/ILIAC ART RPR [id number] ENDOGRAFT; ANEURX Allergies: No Known Allergies NPO status: adequate Pt activity level prior to surgery/admission to hospital: METs > 4 EKG 01/18/19: NSR No ECHO on file in [facility] Labs: No results for input(s): WBC, HGB, HCT, PLATELET in the last 7068 hours. No results for input(s): NA, K, CL, CO2, BUN, CREATININE in the last 7068 hours. No results for input(s): AST, ALT, ALKPHOS, BILITOT, BILIDIR in the last 7068 hours. No results for input(s): PT, INR, PTT in the last 168 hours. No results found for: ABORH Plan is for GA with ETT, cmac with fiberoptic in room, arterial line, T&S, standard ASA monitors, and adequate IV access. Tyson Keenan MD PGY4 (CA-3), Screen Making Technician Pager #[phone] Pt seen chart reviewed Agree with above NPO -URI Airway: Marked scarring and fullness in left Swallows easily Good bedside FVC Likely impaired visualization with direct laryngoscopy Plan look to confirm Video blade and FOB backup Region - [facility] Informed Consent: Anesthetic plan and risks discussed with patient and spouse. Use of blood products discussed with patient who consented to blood products. Plan discussed with resident. DEXTER BORJAS PAT Clinic Note: Date and Time of Entry: 01/27/2019 10:00 AM Entered By: Georgina Yost APRN Reason for Evaluation: Decision Support/Risk Assessment Hx of Anesthesia Problem: Difficult airway 2011 ([facility]). PAT Visit Type: Workup Review Only (NO interview) Additional/Outside Records Requested? Did not request medical information from outside organization. Findings, Assessment and Plan: Mr. Wyatt is a 63 y.o. year old male whose pertinent medical records were reviewed prior to vascular surgery with Dr. Brandon Gregorio. Relevant PMH includes: tongue cancer (s/p chemo/XRT 2011); HTN (treated); GERD; LIBERTY (?CPAP now); hypothyroidism; obesity (BMI 33); psoriasis with arthropathy; depression/anxiety. Per recent Radiation Oncology note: stable trismus; fibrosis of neck. Anesthesia record 12/12/2011: Gr 4 view with Mac 4, 6.5 mm, #2 attempts, MV with OA. DL x 1 with noview with Mac 4 for attempted nasal intubation. DL x 2 with passage of Bougie and grade 4 view. Slight chip to left front incisor. Georgina L. Yost, CLAIMS SERVICE REPRESENTATIVE Pre-Admission Testing [phone] documented in this encounter Plan of Treatment Upcoming Encounters Date Type Department Care Team (Late st Contact Info) Description 05/24/2025 11:00 AM EDT Office Visit Radiation Oncology at [address] [phone] Jesse Mcmahan MD [facility] [place] [address] documented as of this encounter Visit Diagnoses Not on filedocumented in this encounter Administered Medications Inactive Administered Medications - up to 3 most recent administrations Medication Order MAR Action Action Date Dose Rate Site clindamycin (CLEOCIN) 900mg in dextrose 5% 50mL 900 mg, Intravenous, ONCE, 1 dose, On Thu01/28/19 at 0800, Administer over 30 Minutes, Give over 30-60 minutes. Do not exceed 30mg/minute. Redose every 6 hours if CrCl is greater than 20. Redose every 6 hours if CrCl is less than 20., Day of Surgery (Day of Procedure), Indication for (Active or Suspected): Prophylaxis Given 01/28/2019 8:45 AM EDT 900 mg dexamethasone (DECADRON) injection PRN, Starting on Thu01/28/19 at 0901, Until Thu01/28/19 at 1107, Anesthesia Intra-op, Routine Given 01/28/2019 9:01 AM EDT 4 mg esmolol (BREVIBLOC) injection PRN, Starting on Thu01/28/19 at 1049, Until Thu01/28/19 at 1107, Anesthesia Intra-op, Routine Given 01/28/2019 10:49 AM EDT 10 mg fentaNYL 50 mcg/mL multi-dose injection PRN, Starting on Thu01/28/19 at 0849, Until Thu01/28/19 at 1107, Anesthesia Intra-op, Routine Given 01/28/2019 10:50 AM EDT 25 mcg Given 01/28/2019 10:49 AM EDT 25 mcg Given 01/28/2019 10:34 AM EDT 50 mcg heparin (porcine) injection PRN, Starting on Thu01/28/19 at 0927, Until Thu01/28/19 at 1107, Anesthesia Intra-op, Routine Given 01/28/2019 9:59 AM EDT 1,000 Units Given 01/28/2019 9:48 AM EDT 2,000 Units Given 01/28/2019 9:35 AM EDT 3,000 Units labetalol (NORMODYNE,TRANDATE) multi-dose injection PRN, Starting on Thu01/28/19 at 1051, Until Thu01/28/19 at 1107, Anesthesia Intra-op, Routine Given 01/28/2019 11:05 AM EDT 5 mg Given 01/28/2019 10:58 AM EDT 5 mg Given 01/28/2019 10:55 AM EDT 5 mg lactated ringers infusion 1,000 mL, at 100 mL/hr, Intravenous, CONTINUOUS, Starting on Thu01/28/19 at 0800, Until Thu01/28/19 at 1701, Day of Surgery (Day of Procedure) New Bag 01/28/2019 8:26 AM EDT New Bag 01/28/2019 8:00 AM EDT 1,000 mLs 100 mL/hr lidocaine (PF) (XYLOCAINE) 100 mg/5 mL (2 %) injection PRN, Starting on Thu01/28/19 at 0830, Until Thu01/28/19 at 1107, Anesthesia Intra-op, Routine Given 01/28/2019 10:47 AM EDT 80 mg Given 01/28/2019 8:30 AM EDT 100 mg midazolam (PF) (VERSED) multi-dose injection PRN, Starting on Thu01/28/19 at 0826, Until Thu01/28/19 at 1107, Anesthesia Intra-op, Routine Given 01/28/2019 8:26 AM EDT 2 mg ondansetron (ZOFRAN) injection PRN, Starting on Thu01/28/19 at 1033, Until Thu01/28/19 at 1107, Anesthesia Intra-op, Routine Given 01/28/2019 10:33 AM EDT 4 mg PHENYLephrine (BRENDA-SYNEPHRINE) 20 mg in sodium chloride 250 mL (standard ADULT & Pedi greater than 20kg) infusion CONTINUOUS PRN, Starting on Thu01/28/19 at 0858, Until Thu01/28/19 at 1107, Anesthesia Intra-op, Routine Rate/Dose Change 01/28/2019 10:10 AM EDT 15 mcg/min 11.3 mL/hr Rate/Dose Change 01/28/2019 9:22 AM EDT 20 mcg/min 15 mL/h r Rate/Dose Change 01/28/2019 9:18 AM EDT 30 mcg/min 22.5 mL /hr propofol (DIPRIVAN) 10 mg/mL bolus injection (Anesthesia) PRN, Starting on Thu01/28/19 at 0845, Until Thu01/28/19 at 1107, Anesthesia Intra-op Given 01/28/2019 10:33 AM EDT 20 mg Given 01/28/2019 8:45 AM EDT 50 mg Given 01/28/2019 8:30 AM EDT 200 mg protamine injection PRN, Starting on Thu01/28/19 at 1035, Until Thu01/28/19 at 1107, Anesthesia Intra-op, Routine Given 01/28/2019 10:35 AM EDT 50 mg rocuronium (ZEMURON) multi-dose injection PRN, Starting on Thu01/28/19 at 0830, Until Thu01/28/19 at 1107, Anesthesia Intra-op, Routine Given 01/28/2019 8:30 AM EDT 50 mg sodium chloride 0.9% infusion CONTINUOUS PRN, Starting on Thu01/28/19 at 0843, Until Thu01/28/19 at 1107, Anesthesia Intra-op New Bag 01/28/2019 8:43 AM EDT documented in this encounter Care Teams Hvac Technician Residential Relationship Specialty Start Date End Date Bj Alves MD [address] [place] [phone] PCP - General 06/25/10 04/02/23 documented as of this encounter
--- OUTSIDE RECORDS SUMMARY | 2024-08-01 15:27 | XMS_ITS | Encounter Summary ---
[place] [address] Care Team Providers Care Paper Machine Tender Name Role Phone Bj Alves MD Primary Care Provider [phone] Reason for Referral * Diagnostic Test (Routine) - Specialty Diagnoses / Procedures Referred By Contac t Referred To Contact Radiology Diagnoses AAA (abdominal aortic aneurysm) without rupture Procedures CT Angiogram Abdomen & Pelvis w Contrast (Generic) CT Angiogram Abdomen & Pelvis w Contrast (Generic) Angel Gordillo MD [facility] VASCULAR SURGERY [address] [place] [address] Referral ID Status Reason Start Date Expiration Date Visits Requested Visits Authorized [id number] Specialty Service Requested 01/29/2019 01/29/2020 1 1 Reason for Visit * Diagnostic Test (Routine) - Specialty Diagnoses / Procedures Referred By Contac t Referred To Contact Radiology Diagnoses AAA (abdominal aortic aneurysm) without rupture Procedures CT Angiogram Abdomen & Pelvis w Contrast (Generic) CT Angiogram Abdomen & Pelvis w Contrast (Generic) Angel Gordillo MD [facility] [place] [address] [facility] [place] [address] Referral ID Status Reason Start Date Expiration Date Visits Requested Visits Authorized [id number] Specialty Service Requested 01/29/2019 01/29/2020 1 1 Encounter Details Date Type Department Care Team (Latest Contact Info) Description 03/04/2019 11:30 AM EDT - 03/04/2019 11:59 PM EDT Hospital [place] [address] Brandon Gregorio MD [facility] [place] [address] AAA (abdominal aortic aneurysm) without rupture Discharge Disposition: Home Social History Tobacco Use [...] on file documented as of this encounter Medications at Time of Discharge Medication Sig Dispensed Refills Start Date End Date rosuvastatin (Crestor) 10 mg Tablet Take 10 [...] capsule Take 1 capsule by mouth daily. metHOTREXate 2.5 mg Tablet Take by mouth once a week. 06/08/2019 apremilast (OTEZLA) 30 mg Tablet Take 30 mg by mouth 2 times daily. 04/12/2019 folic acid (FOLVITE) 1 mg Tablet Take 5 mg by mouth daily. 06/19/2021 dextrose 5% SolP 500 mL with metHOTREXate (PF) 25 mg/mL Soln Inject into the vein once. 07/22/2023 documented as of this encounter Plan of Treatment Upcoming Encounters Date Type Department Care Team (Late st Contact Info) Description 05/24/2025 11:00 AM EDT Office Visit Radiation Oncology at [address] [phone] Jesse Mcmahan MD [facility] [place] [address] documented as of this encounter Procedures Procedure Name Priority Date/Time Associated Diagnosis Comments CT ANGIOGRAM ABDOMEN AND PELVIS W CONTRAST Routine 03/04/2019 1:00 PM EDT AAA (abdominal aortic aneurysm) without rupture documented in this encounter Results * CT Angiogram Abdomen & Pelvis w [...] report, please contact the number below. ? Narrative 03/04/2019 2:37 PM EDT EXAMINATION: CT [...] aortic aneurysm with bifurcated aortoiliac stent graft. [place] sac now measures 58 x 50 mm in maximum dimension on centerline reformatted images (in the axial plane it measures 55 x 59 mm). On the arterial phase images a small blush of enhancement is seen external to the endograft in the [place] aneurysm sac in the location of the [...] this report, please contact the number below. Brandon Gregorio MD IMG CT ORDERABLES documented in this encounter Visit Diagnoses Diagnosis AAA (abdominal aortic aneurysm) without rupture Abdominal aneurysm without mention of rupture documented in this encounter Administered Medications Inactive Administered Medications - up to 3 most recent administrations Medication Order MAR Action Action Date Dose Rate Site iohexol (OMNIPAQUE) 350 mg/mL solution 0-200 mL 0-200 mL, Intravenous, ONCE PRN, 1 dose, Starting on Thu03/04/19 at 1302, Until Thu03/04/19 at 1302, Per Protocol, Warning Vesicant/Irritant Medication , Radiology Contrast, Routine Given 03/04/2019 1:02 PM EDT 76 mLs documented in this encounter Care Teams Paper Machine Tender Relationship Specialty Start Date End Date Bj Alves MD [address] [place] [phone] PCP - General 06/25/10 04/02/23 documented as of this encounter
--- OUTSIDE RECORDS SUMMARY | 2024-08-01 15:27 | XMS_ITS | Encounter Summary ---
Author Organization [facility] [place] [address] Care Team Providers Care Facepiece Line Supervisor Name Role Phone Bj Alves MD Primary Care Provider [phone] Encounter Details Date Type Department Care Team (Late st Contact Info) Description 11/26/2018 2:30 PM EDT Office Visit Radiation Oncology at [address] [phone] Jesse Mcmahan MD [facility] [place] [address] Cancer of base of tongue Social History [...] Sign Reading Time Taken Comments Blood Pressure 137/71 11/26/2018 2:00 PM EDT Pulse 76 11/26/2018 2:00 PM EDT Temperature 36.7 ??C (98.1 ??F) 11/26/2018 2:00 PM ED T Respiratory Rate 16 11/26/2018 2:00 PM EDT Oxygen Saturation 98% 11/26/2018 2:00 PM EDT Inhaled Oxygen Concentration - - Weight 104.1 kg (229 lb 6.4 oz) 11/26/2018 2:00 PM EDT Height - - Body Mass Index 33.86 04/17/2017 2:16 PM EDT documented in this encounter Progress Notes * Jesse Mcmahan MD - 11/26/2018 2:30 PM EDT Radiation Oncology Follow Up Note [...] Staging: ?? 12/09/11 CT H&N with contrast ([facility]): Mixed attenuation mass with lare low density areas suggesting necrotic change present deep to anterior aspect L SCM. Mass smoothly marginated, max 3.3 x 5.2 cm. ?? 11/27/11 PET-[place] ([facility] Despite premedication, severe claustrophobia allowed this can [...] ??? 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 DIFFICULT AIRWAY 139294 ??? Dysphagia, unspecified 787.20 Interval History: Sebastian Wyatt returns for an off grid follow up having completed radiotherapy approximately 6 years 6 months prior. He had an episode of rapid neck swelling and severe pain on the left about three weeks prior, at which time he contacted our office and we made an appointment. However, his symptoms spontaneously resolved over the course of the next week. In retrospect he may have been doing some heavy physical labor in the day prior to his symptoms, when he noticed a tearing sound he associated with breaking up scar tissue. Currently he notes the following symptoms: Symptom Description Ongoing Intervention Dysphagia Most foods tolerable, difficulty with chunkier foods, soap drier tender foods. However, food tends tofeel as though it is stuck in the mid-chest. Stable. Not seeing SUPERVISOR DATA PROCESSING at this time. Odynophagia Rare Trismus Stable limitation, doing exercises. PT exercises Weight Loss Gain weight secondary to hypothyroidism, now resolved Diet Modifications Eating most foods, with moderate dysgeusia and moderate xerostomia Neck Symptoms Stable, painful neck & shoulder pain, L > R, stabbing sensation, associated with activity. No improvement. Exacerbated by activity such as driving. He also has stable mild weakness of his left hand, sensation of ulnar nerve numbness, waxing/waning. Neurosurgical evaluation and MRI indicated no good surgical options. Neurology: EMG indicates neuropathy. He had nerve block of right / left neck with minor improvement. Altered strength/sensation In early 2018 that he had developed weakness of the lateral left tongue associated with altered sensation. CT 12/2017 showed no concerning findings. His symptoms are stable. Dental Issues Good dental care. He had has some dental extractions without difficulty. Following with dentistry, using [place] toothpaste Otalgia/Referred Pain Intermittent tinnitus. Xerostomia Moderate to severe xerostomia, dysgeusia still moderate. Other Pain Pain associated knees, ankles and shoulders due to psoriatic arthritis. Stable. Otezla, MTX No Known Allergies Current Outpatient Medications on File Prior to Visit Medication Sig Dispense Refill ??? LORazepam (ATIVAN) 1 mg Tablet Take 1 mg by mouth every 6 hours as needed (insomnia). ??? aspirin 81 mg Tablet, Delayed Release (E.C.) Take 81 mg by mouth daily. ??? apremilast (OTEZLA ORAL) Take by mouth 2 times daily. ??? rosuvastatin (CRESTOR) 10 mg Tablet Take 10 mg by mouth daily. ??? tamsulosin (FLOMAX) 0.4 mg Capsule, Sust. Release 24 hr Take 0.4 mg by mouth daily. ??? betamethasone dipropionate (DIPROLENE) 0.05 % Ointment Apply topically 2 times daily. ??? Calcitriol 3 mcg/gram Ointment Apply 1 Film topically 2 times daily. ??? celecoxib (CELEBREX) 100 mg capsule Take 100 mg by mouth daily as needed. ??? levothyroxine (SYNTHROID) 100 mcg tablet Take 175 mcg by mouth daily. Indications: Hypothyroidism ??? amlodipine-benazepril (LOTREL) 5-10 mg per capsule Take 1 capsule by mouth daily. No current facility-administered medications on file prior to visit. Past Medical History: Diagnosis Date ??? Acid reflux ??? Arthritis ??? Injury of left knee 2014 fall at work ??? Psoriasis ??? Psoriatic arthritis ??? Thyroid dysfunction Past Surgical History: Procedure Laterality Date ??? CARPAL TUNNEL RELEASE rt ??? PET SCAN (SCAN) 01/16/2012 PET SCAN performed by RESOURCE, ANESTHESIA-IRIS at [facility] ??? PET SCAN (SCAN) 07/06/2012 PET SCAN performed by Anesthesia-Iris Resource at [facility] ??? PRO LARYNGOSCOPY, DIRCT, OP SCOP, EXC TUMR 12/12/2011 LARYNGOSCOPY, DIRECT, EXCISION OF TUMOR, CORD STRIPPING, MICRO performed by BECKY GANN at [facility] ??? PRO LARYNGOSCOPY, DIRCT, OP SCOPE, BIOPSY 12/12/2011 LARYNGOSCOPY, MICROSCOPE, WITH BIOPSY performed by BECKY GANN at [facility] Physical Examination: Vitals: 11/26/18 1400 BP: 137/71 Pulse: 76 Resp: 16 Temp: 36.7 ??C (98.1 ??F) SpO2: 98% Weight: 104.1 kg (229 lb 6.4 oz) Physical Exam Constitutional: He is oriented to person, place, and time. He appears well- developed and well-nourished. HENT: Visual inspection of OC and OP revealed no evidence of suspicious masses or lesions. Palpation reveals posterior aspect of oral tongue soft without masses or lesions. Oral tongue deviates to left on extrusion; altered sensation left lateral tongue. Good dentition. Moisture moderate. No thrush. Eyes: Pupils are equal, round, and [...] and affect. His behavior is normal. Procedure: Flexible laryngoscopy deferred as no concerning clinical findins are noted. Interval Imaging: None Assessment/Plan: ?? Squamous cell carcinoma of the BOT ?? Disease Status: MARCO ?? KPS: 80% ?? Radiation toxicity: no changes - his acute symptoms have resolved ?? Xerostomia: Moderate, using water/biotene to assist ?? Dysphagia: denies gary dysphagia. Tolerating most foods, primary limitation is xerostomia. ?? Pain: Resolved ?? Fibrosis/Edema: significant and bothersome along left neck and now right neck. Right neck pain severe, minimal benefit with nerve block. Still doing exercises, has had PT to modest effect. Pent/Vit E not helpful. Discussed Botox with ENT, wants to defer at this time. ?? Shoulder pain/arm parethesias/LUE weakness: Stable. He has a prior injury of that shoulder that was associated with weakness and altered sensation, and has been evaluated by Neurology/Neurosurgeryand EMG demonstrated neuropathy ?? 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 ?? Thyroid: TSH checked and managed by Dr. Alves. ?? Dental: RTOG dental Grade 1, good dental care, using Fluoride ?? Summary: at this point he is MARCO. He likely had some acute trauma to his left neck, resulting inhis symptoms, that have now resolved. 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 I will see him in 6 months. ?? Arthritis: psoriatic arthritis, managed by Rheumatology. ?? Left Knee Pain: continuing PT and steroid injections ?? FU: follow up with radiation oncology per [facility] algorithm Botox ENT documented in this encounter Plan of Treatment Upcoming Encounters Date Type Department Care Team (Late st Contact Info) Description 05/24/2025 11:00 AM EDT Office Visit Radiation Oncology at [address] [phone] Jesse Mcmahan MD [facility] [place] [address] documented as of this encounter Visit Diagnoses Diagnosis Cancer of base of tongue Malignant neoplasm of base of tongue documented in this encounter Care Teams Facepiece Line Supervisor Relationship Specialty Start Date End Date Bj Alves MD [address] [place] [phone] PCP - General 06/25/10 04/02/23 documented as of this encounter
--- OUTSIDE RECORDS SUMMARY | 2024-08-01 15:27 | XMS_ITS | Encounter Summary ---
Author Organization [facility] [place] [address] Care Team Providers Care Senior Dentist Name Role Phone Bj Alves MD Primary Care Provider [phone] Encounter Details Date Type Department Care Team (Late st Contact Info) Description 07/28/2018 [place] [phone] Brianda Huynh Social History Tobacco Use Types Packs/Day Years [...] encounter Miscellaneous Notes * Telephone Encounter - Brianda Huynh - 07/07/2018 5:32 PM EST Happy to try it. ??Brianda, can you get him an appointment in my clinic for botox injection. ----- Message ----- From: Jesse Mcmahan MD Sent: 06/20/2018 ?? 7:30 PM To: [place] Graves MD Do you think it is worth trying? He would be game, it's very bothersome to him. ----- Message ----- From: [place] Graves MD Sent: 06/17/2018 ?? 6:52 PM To: Jesse Mcmahan MD Never used botox for this but have considered it. ??Are the spasms in the SCM? ----- Message ----- From: Jesse Mcmahan MD Sent: 06/08/2018 ??10:40 AM To: MD Mian Antoine/Roldan - I have a patient with severe neck spasm ~ 6 years after radiotherapy. Have you ever treated these with Botox and if so has it been useful? Thanks. OTONIEL - please have him see me in 6 months for follow up documented in this encounter Plan of Treatment Upcoming Encounters Date Type Department Care Team (Late st Contact Info) Description 05/24/2025 11:00 AM EDT Office Visit Radiation Oncology at [address] [phone] Jesse Mcmahan MD [facility] [place] [address] documented as of this encounter Visit Diagnoses Not on filedocumented in this encounter Care Teams Senior Dentist Relationship Specialty Start Date End Date Bj Alves MD [address] [place] [phone] PCP - General 06/25/10 04/02/23 documented as of this encounter
--- OUTSIDE RECORDS SUMMARY | 2024-08-01 15:27 | XMS_ITS | Encounter Summary ---
Author Organization [facility] [place] [address] Care Team Providers Care Cloth Bleaching Range Operator Chief Name Role Phone Bj Alves MD Primary Care Provider [phone] Encounter Details Date Type Department Care Team (Late Contact Info) Description 12/29/2018 Orders [place] [phone] Galilea Perez RN AAA (abdominal aortic aneurysm) without rupture Social [...] encounter Miscellaneous Notes * Addendum Note - Galilea Perez RN - 12/29/2018 4:05 PM EDTAddended by: GALILEA PEREZ on: 12/30/2018 08:18 AM Modules accepted: Orders, SmartSet documented in this encounter Plan of Treatment Upcoming Encounters Date Type Department Care Team (Late st Contact Info) Description 05/24/2025 11:00 AM EDT Office Visit Radiation Oncology at [address] [phone] Jesse Mcmahan MD [facility] [place] [address] Scheduled Orders Name Type Priority Associated Diagnoses Orde r Schedule EVG, AORTA/ILIAC ART RPR [id number] ENDOGRAFT; ANEURX Procedures Routine One Time for 1 Occurrences starting 12/29/2018 until 12/29/2018 documented as of this encounter Visit Diagnoses Diagnosis AAA (abdominal aortic aneurysm) without rupture Abdominal aneurysm without mention of rupture documented in this encounter Care Teams Cloth Bleaching Range Operator Chief Relationship Specialty Start Date End Date Bj Alves MD [address] [place] [phone] PCP - General 06/25/10 04/02/23 documented as of this encounter
--- OUTSIDE RECORDS SUMMARY | 2024-08-01 15:27 | XMS_ITS | Encounter Summary ---
Author Organization [facility] [place] [address] Care Team Providers Care Intelligence Chief Name Role Phone Bj Alves MD Primary Care Provider [phone] Encounter Details Date Type Department Care Team (Late Contact Info) Description 06/20/2019 Ancillary Procedure Radiology Library at [facility] [place] [phone] Bj Alves MD [address] [place] [phone] Social History Tobacco Use Types Packs/Day Years [...] EDT Office Visit Radiation Oncology at [address] [phone] Jesse Mcmahan MD [facility] RAD[place] [address] documented as of this encounter Procedures Procedure Name Priority Date/Time Associated Diagnosis Comments FILM LIBRARY STORAGE ONLY DX UPPER EXTREMITY Routine 06/20/2019 12:00 AM EST documented in this encounter Results * Film Library- Storage Only DX Upper Extremity (06/20/2019 12:00 AM EST) Narrative [facility] - 06/21/2019 10:56 AM EST This exam is auto-finalizing. It's purpose is for storage only. Bj Alves MD [facility] FILM LIBRARY ORD ERABLES Performing Organization Address City/State/[facility] Co de Phone Number [place], [place] documented in this encounter Visit Diagnoses Not on filedocumented in this encounter Care Teams Intelligence Chief Relationship Specialty Start Date End Date Bj Alves MD [address] [place] [phone] PCP - General 06/25/10 04/02/23 documented as of this encounter
--- OUTSIDE RECORDS SUMMARY | 2024-08-01 15:27 | XMS_ITS | Encounter Summary ---
Author Organization [facility] [place] [address] Care Team Providers Care Scientific Publications Editor Name Role Phone Bj Alves MD Primary Care Provider [phone] Reason for Referral * Diagnostic Test (Routine) - Specialty Diagnoses / Procedures Referred By Sheila colvin Referred To Contact Radiology Diagnoses AAA (abdominal aortic aneurysm) without rupture Procedures CT Angiogram Abdomen & Pelvis w Contrast (Generic) CT Angiogram Abdomen & Pelvis w Contrast (Generic) Angel Gordillo MD [facility] [place] [address] [facility] [place] [address] Referral ID Status Reason Start Date Expiration Date Visits Requested Visits Authorized [id number] Specialty Service Requested 01/29/2019 01/29/2020 1 1 Reason for Visit * Auth/Cert Specialty Diagnoses / Procedures Referred By Sheila colvin Referred To Contact Diagnoses AAA Procedures PRO ENDOVASC REPAIR DEPLOYMENT [id number] ENDOGRAFT @EVG, AORTA/ILIAC ART RPR [id number] ENDOGRAFT; ANEURX Referral ID Status Reason Start Date Expiration Date Visits Re quested Visits Authorized [id number] 1 1 Encounter Details Date Type Department Care Team (Latest Contact Info) Description 01/28/2019 6:53 AM EDT - 01/29/2019 12:48 PM EDT Hospital Encounter [address] [place] [address] Brandon Gregorio MD [facility] [place] [address] AAA (abdominal aortic aneurysm) without rupture Discharge [...] Sign Reading Time Taken Comments Blood Pressure 158/86 01/29/2019 7:35 AM EDT BP medications give this AM Pulse 78 01/28/2019 8:30 PM EDT Temperature 37.1 ??C (98.8 ??F) 01/29/2019 7 :35 AM EDT Respiratory Rate 16 01/29/2019 7:35 AM EDT Oxygen Saturation 97% 01/29/2019 7:3 5 AM EDT Inhaled Oxygen Concentration - - Weight 100.7 kg (222 lb) 01/28/2019 7:3 4 AM EDT Height 175.3 cm (5' 9) 01/28/2019 7:34 AM EDT Body Mass Index 32.78 01/28/2019 7:34 AM EDT documented in this encounter Discharge Summaries * Angel Gordillo MD - 01/29/2019 11:13 AM EDT Inpatient - Discharge Summary Patient Name: Sebastian Wyatt Patient Age: 63 y.o. Birthdate: 1955 Admit date: 01/28/2019 Discharge date and time: 01/29/19 Attending Physician: Brandon Gregorio MD Discharge Diagnoses (Hospital Problems) and Secondary Diagnoses (Chronic Problems): Active Hospital Problems Diagnosis ??? AAA (abdominal aortic aneurysm) without rupture Resolved Hospital Problems No resolved problems to display. Active Non-Hospital Problems Diagnosis ??? 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 1 PPD x 38 yrs. Quit 08/2011. Developed odynophagia early 11/2011, abx did not improve, . Referred to ENT. He does note some coughing in the morning ove the past year. Stagin12/09/11 CT H&N with contrast ([facility]): Mixed attenuation mass with lare low density areas suggesting necrotic change present deep to anterior aspect L SCM. Mass smoothly marginated, max 3.3 x 5.2 cm. 11/27/11 PET-CT ([facility]): Despite premedication, severe claustrophobia allowed this can [...] cetuximab arm. Received 70 Gy completed 04/06/12 ??? Benign prostatic hyperplasia with lower urinary tract symptoms ??? Depression ??? Congenital nevus ??? Dysphagia, unspecified(787.20) ??? DIFFICULT AIRWAY ??? Claustrophobia Needs sedation for scans ??? 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 Obesity (BMI 30.0-34.9) ??? Hyperlipidemia ??? Hypertension ??? Glucose intolerance (impaired glucose tolerance) ??? Hypothyroidism ??? GERD (gastroesophageal reflux disease) ??? Psoriasis with arthropathy ??? LIBERTY on CPAP ??? Anxiety ??? Back pain, chronic ??? Thalassemia minor Operations/Major Procedures: 01/28: EVAR History of Presentation: Mr. Wyatt is a 63 year-old man with a 5.7cm infrarenal AAA who presents today for endovascular repair. Hospital Course: In OR, anatomy consistent with pre-operative imaging. Bilateral percutaneous femoral arterial access (16Fr left, 12Fr right).??Successful repair of infrarenal abdominal aortic??aneurysm with Monroe Excluder bifurcated device, main body via left side (26x14.5o086an), contralateral right limb (14.8v927vu) and ipsilateral iliac extension (14.7x70mm). All devices had excellent endpoints,??deployed in desired location. Initial completion angiogram with type IA endoleak, angioplasty of the proximal main body was performed with resolution of the endoleak. Completion angiogram demonstrated good position of stent grafts, no??attachment or junction endoleak, stenosis or other problems. Internal iliacs preserved bilaterally. Good hemostasis with bilateral pre- close technique (1 R, 2 L). 2+ palpable pedal pulses (DP bilaterally). Neuro intact at completion. Patient admitted to floor post-operatively for monitoring. Patient's post-op course was unremarkable. On POD1 he was afebrile, ambulatory, and voiding spontaneously. He was deemed medically appropriate for discharge to home. Important Studies and Lab Data: Labs: Lab Results Component Value Date Sodium 141 01/29/2019 Potassium 3.8 01/29/2019 Chloride 104 01/29/2019 CO2 24 01/29/2019 BUN 14 01/29/2019 Creatinine 0.96 01/29/2019 Glucose Lvl 115 01/29/2019 Day of Discharge Physical Exam NAD NC/AT Regular rate nonlabored resp on RA Groin access sites c/d/i bilaterally, no hematoma 2+ pedal pulses bilaterally Nonfocal Discharge Conditions/Prognosis: Good Discharge to: Home Discharge Medications: Your Medications Continued medications, unchanged Dose Details amLODIPine-benazepril 5-10 mg Cap Commonly known as: LOTREL Take 1 capsule by mouth daily. 1 capsule Refills: 0 betamethasone dipropionate 0.05 % Oint Commonly known as: DIPROLENE Apply topically 2 times daily. Refills: 0 celecoxib 100 mg Cap Commonly known as: CeleBREX Take 100 mg by mouth daily as needed. 100 mg Refills: 0 CRESTOR 10 mg Tab Take 10 mg by mouth daily. Generic drug: rosuvastatin 10 mg Refills: 0 dextrose 5% SolP 500 mL with metHOTREXate (PF) 25 mg/mL Soln Inject into the vein once. Refills: 0 folic acid 1 mg Tab Commonly known as: FOLVITE Take 5 mg by mouth daily. 5 mg Refills: 0 levothyroxine 100 mcg Tab Commonly known as: SYNTHROID Take 175 mcg by mouth daily. Indications: Hypothyroidism 175 mcg Refills: 0 metoprolol succinate 25 mg Tablet sr Commonly known as: TOPROL-XL Take 25 mg by mouth daily. 25 mg Refills: 0 OTEZLA 30 mg Tab Take 30 mg by mouth 2 times daily. Generic drug: apremilast 30 mg Refills: 0 tamsulosin 0.4 mg Cap Commonly known as: FLOMAX Take 0.4 mg by mouth daily. 0.4 mg Refills: 0 Updated Allergies/ADRs: No Known Allergies Follow-up Recommendations for Providers: N/A Instructions Given to Patient at Discharge: Patient Instructions You were admitted to [facility] after having your aortic aneurysm repaired with an endograft. This all went very well and your postoperative course was uncomplicated. Dr. Gregorio will want you to be seen inapproximately one month with a CT scan. This will be scheduled and sent to you in the mail. Please call our office at the number below if you don't receive this appointment in a week as your follow up is very important. Call your doctor if: Any abdominal or back pain, any issue of redness, swelling or separation of the puncture sites in your groin, any nausea or vomiting or any fever. Activity level: up as tolerated but take it easy for a week or so. Diet: regular Driving: ok in a week or so if driving before and you feel perfect. NONE if requiring any pain medication Shower/Bath: showering is fine Wound Care: wash in a shower with soap and water, pat dry. Remove any dressings if they remain 1-2 days after your operation, then no need to cover. For any problems or questions please call [phone] MAXIM ChavezN, traveling storekeeper Nurse Clinician For issues on weeknights after 5pm and weekends please call [phone] and ask for the Vascular Fellow salesperson books. General Instructions None Future Appointments and Orders Future Appointments and Orders Future Appointments Provider Department Dept Phone 04/22/2019 10:00 AM Galilea Dominique, DO Rheumatology at [place] Arrive at: Er[facility] Project Manager Area [phone] Future Orders Complete By Expires CT Angiogram Abdomen & Pelvis w Contrast (Generic) [PFX271 Custom] 02/28/2019 (Approximate) 08/30/2019 Process Instructions: Scheduling Instructions: Questions: Where will study be performed?: [facility] Radiology Reason for exam and clinical history: AAA s/p EVAR interval f/u Other pertinent information: Stat read required?: Does patient require sedation?: GA rationale: Date of injury if applicable: Requested Time: Discharge References/Attachments: Discharge References/Attachments None Electronically Signed By: Angel Gordillo MD 01/29/2019 documented in this encounter Discharge Instructions * Patient Instructions* Georgette Rocha RN - 01/28/2019 8:41 PM EDT You were admitted to [facility] after having your aortic aneurysm repaired with an endograft. This all went very well and your postoperative course was uncomplicated. Dr. Gregorio will want you to be seen inapproximately one month with a CT scan. This will be scheduled and sent to you in the mail. Please call our office at the number below if you don't receive this appointment in a week as your follow up is very important. Call your doctor if: Any abdominal or back pain, any issue of redness, swelling or separation of the puncture sites in your groin, any nausea or vomiting or any fever. Activity level: up as tolerated but take it easy for a week or so. Diet: regular Driving: ok in a week or so if driving before and you feel perfect. NONE if requiring any pain medication Shower/Bath: showering is fine Wound Care: wash in a shower with soap and water, pat dry. Remove any dressings if they remain 1-2 days after your operation, then no need to cover. For any problems or questions please call [phone] RAJNI Chavez, traveling storekeeper Nurse Clinician For issues on weeknights after 5pm and weekends please call [phone] and ask for the Vascular Fellow salesperson books. documented in this encounter Medications at Time [...] capsule Take 1 capsule by mouth daily. apremilast (OTEZLA) 30 mg Tablet Take 30 mg by mouth 2 times daily. 04/12/2019 folic acid (FOLVITE) 1 mg Tablet Take 5 mg by mouth daily. 06/19/2021 dextrose 5% SolP 500 mL with metHOTREXate (PF) 25 mg/mL Soln Inject into the vein once. 07/22/2023 documented as of this encounter Progress Notes * Sabina Sharma RN - 01/29/2019 12:48 PM EDT Pt discharged at this time. Discharge instructions given with verbal understanding. IV removed. No further questions. Pt left the unit with . R/f wheelchair. * Sabina Sharma RN - 01/28/2019 5:36 PM EDT Pt arrived to [facility] at 1715 from the PACU. Report received from Alexandra RADER. Pt has no c/o pain, sob, orchest pain. Palpable pedal pulses, denies numbness and tingling. Pt ordering dinner at this time. * Leslie Mike RN - 01/28/2019 12:56 PM EDT Break coverage, VSS, no c/o pain. Pt flat, no groin bleeding. Palpable pedal pulses documented in this encounter H&P Notes * Sunita Arellano MD - 01/28/2019 7:51 AM EDT Vascular Surgery History and Physical HPI: Mr. Wyatt is a 63 year-old man with a 5.7cm infrarenal AAA who presents today for endovascular repair. Denies any changes to health history since he was seen in clinic. Denies chest pain/shortness of breath. Denies fevers/chills. Review of Systems: A full review encompassing at least 10 organ systems including general, neuro, pulm, cardiac, GI, , MSK, Endo, and psych was negative other than that listed in the HPI Past Medical History: Past Medical History: Diagnosis Date ??? Acid reflux ??? Arthritis ??? Injury of left knee 2014 fall at work ??? Psoriasis ??? Psoriatic arthritis ??? Thyroid dysfunction Past Surgical History: Past Surgical History: Procedure Laterality Date ??? [...] STRIPPING, MICRO performed by BECKY GANN at [facility] MAIN OR ??? PRO LARYNGOSCOPY, DIRCT, OP SCOPE, BIOPSY 12/12/2011 LARYNGOSCOPY, MICROSCOPE, WITH BIOPSY performed by BECKY GANN at [facility] MAIN OR Functional Status/Social Hx: Social History Socioeconomic History ??? Marital status: Spouse name: Not on file ??? Number of children: Not on file ??? Years of education: Not on file ??? Highest education level: Not on file Occupational History ??? Not on file Social Needs ??? Financial resource strain: Not on file ??? Food insecurity: Worry: Not on file Inability: Not on file ??? Transportation needs: Medical: Not on file Non-medical: Not on file Tobacco Use ??? Smoking status: Former Smoker Packs/day: 1.00 Years: 38.00 Pack years: 38.00 Last attempt to quit: 08/06/2011 Years since quittin.4 ??? Smokeless tobacco: Never Used Substance and Sexual Activity ??? Alcohol use: Yes Alcohol/week: 0.6 oz Types: 1 Glasses of wine per week Comment: rarely one glass of wine occasionally ??? Drug use: Not on file ??? Sexual activity: Not on file Lifestyle ??? Physical activity: Days per week: Not on file Minutes per session: Not on file ??? Stress: Not on file Relationships ??? Social connections: Talks on phone: Not on file Gets together: Not on file Attends pentecostal service: Not on file Active member of club or organization: Not on file Attends meetings of clubs or organizations: Not on file Relationship status: Not on file ??? Intimate partner violence: Fear of current or ex partner: Not on file Emotionally abused: Not on file Physically abused: Not on file Forced sexual activity: Not on file Other Topics Concern ??? 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 Lives near [facility] with , 13yo daughter, 2 horses, 2 dogs. Medications: No current facility-administered medications on file prior to encounter. Current Outpatient Medications on File Prior to Encounter Medication Sig Dispense Refill ??? apremilast (OTEZLA) 30 mg Tablet Take 30 mg by mouth 2 times daily. ??? folic acid (FOLVITE) 1 mg Tablet Take 5 mg by mouth daily. ??? dextrose 5% SolP 500 mL with metHOTREXate (PF) 25 mg/mL Soln Inject into the vein once. ??? metoprolol succinate (TOPROL-XL) 25 mg Tablet Sustained Release 24 hr Take 25 mg by mouth daily. ??? rosuvastatin (CRESTOR) 10 mg Tablet Take 10 mg by mouth daily. ??? tamsulosin (FLOMAX) 0.4 mg Capsule, Sust. Release 24 hr Take 0.4 mg by mouth daily. ??? betamethasone dipropionate (DIPROLENE) 0.05 % Ointment Apply topically 2 times daily. ??? levothyroxine (SYNTHROID) 100 mcg tablet Take 175 mcg by mouth daily. Indications: Hypothyroidism ??? amlodipine-benazepril (LOTREL) 5-10 mg per capsule Take 1 capsule by mouth daily. ??? celecoxib (CELEBREX) 100 mg capsule Take 100 mg by mouth daily as needed. Allergies: Patient has no known allergies. Physical Exam: Temp: [36.4 ??C (97.5 ??F)] Heart Rate: [64] Resp: [14] BP: (155)/(80) SpO2: [99 %] Heart Rate from SpO2: -- General: NAD, resting comfortably HEENT: PERRL, anicteric sclerae CVS: regular rate Pulm: non-labored breathing Abd: soft, non tender, non distended Ext: Groins free of rashes, no LE ulcerations RLE: No edema. Skin warm and pink. No tissue loss. Brisk capillary refill LLE: No edema. Skin warm and pink. No tissue loss. Brisk capillary refill Neuro: Grossly nonfocal, moving all extremities. Labs: Last 3 wbc, hgb, hct plt No results for input(s): WBC, HGB, HCT, PLATELET in the last 7068 hours. Last 3 Lytes Recent Labs 01/28/19 0721 NA 140 K 4.7 CL 103 CO2 27 BUN 19 CREATININE 1.08 Assessment and Plan: 63 y.o. man with a 5.7cm AAA who presents for EVAR. Risks of surgery reviewed with patient who agrees to proceed. [facility] Vascular Fellow, [id number] documented in this encounter Nursing Notes * Alexandra Hernandez RN - 01/28/2019 11:07 AM EDT Pt arrived to PACU. Alert and appropriate. Benitez in place and draining, bilateral groin sites cleanand dry. Pt denies pain/nausea. 12:39 Resident paged for PRN BP med as SBP sustaining 150-160, PRN labetalol given. documented in this encounter Miscellaneous Notes * Med Student Progress Note - AnuelcolinEzekield S - 01/29/2019 8:00 AM EDT INPATIENT DAILY PROGRESS NOTE Patient Name: Sebastian Wyatt Patient Age: 63 y.o. Birthdate: 1955 Admit date: 01/28/2019 Attending Physician: Lisseth att. providers found ID: Sebastian Wyatt is a 63 y.o. male with h/o HTN, HLD, SCC of tongue, and a 5.7 cm asymptomatic infrarenal AAA POD1 s/p EVAR with Monroe Excluder graft. Recent events/symptoms: - ONE: 0545 - Elevated SBP at 154/90, given labetalol per protocol (if SBP >150). BP continued to increase to BP 177, hydralazine given. - Tolerating regular diet well overnight - Patient denies nausea, CP, SOB, or abdominal pain - Voiding freely into bedpan; insists on ambulating and using restroom O: Last value Range last 24hrs Temperature Temp: 37.1 ??C (98.8 ??F) Temp: [36.8 ??C (98.2 ??F)-37.1 ??C (98.8 ??F)] Heart Rate Heart Rate: 78 Heart Rate: -- Blood Pressure BP: 158/86(BP medications give this AM) BP: (144-178)/(62-92) Respiratory Rate Resp: 16 Resp: [16] SpO2 SpO2: 97 % SpO2: [96 %-97 %] Body mass index is 32.78 kg/m??. 01/28 0701 - 01/29 0700 In: 3343.7 [P.O.:540; I.V.:2603.7] Out: 3435 [Urine:3385] No diet orders on file Intake/Output Summary (Last 24 hours) at 01/29/20192034 Last data filed at 01/29/2019 0730 Gross per 24 hour Intake 3243 ml Output 3235 ml Net 8.7 ml Physical Exam: General: NAD, A&Ox3, resting in bed, pleasant, cooperative HEENT: NC/AT CVS: RRR, no m/r/g Pulm: CTAB, no wheezes or rhonchi, breathing comfortably on RA Abd: soft, non-tender, non-distended, no guarding, bilateral groin sites c/d/i, no hematoma Ext: warm and well perfused, no edema. 2+ DP and PT palpable bilaterally Neuro: Grossly intact, nonfocal, moving all four extremities spontaneously. Wiggles toes b/l and sensation intact. Recent Labs 01/29/19 0645 01/28/19 1525 01/28/19 1125 01/28/19 0721 WBC 13.0* 11.0* 8.0 9.9* HGB 12.5* 11.8* 11.5* 12.8* HCT 40.2* 38.5* 38.6* 42.6 PLATELET 205 194 190 227 Recent Labs 01/29/19 0645 01/28/19 1125 01/28/19 0721 NA 141 140 140 K 3.8 4.5 4.7 CL 104 105 103 CO2 24 24 27 BUN 14 16 19 CREATININE 0.96 0.89 1.08 GLUCOSE 115 183 112 CALCIUM 9.5 8.7 9.5 ASSESSMENT: Sebastian Wyatt is a 63 y.o. male with h/o HTN, GERD, and a 5.7 cm asymptomatic infrarenal AAA 1 Day Post-Op s/p EVAR with Monroe Excluder graft. Absence of hematoma and clean groin dressings confirms hemostasis, and ability to wiggle toes and retained sensation argues against spinal cord ischemia. At this time, his urine output is >3L in the past 24 hours and there is no concern for urinary retention. He is tolerating oral intake and his pain is also controlled without need foroxycodone. Problem List: - HTN - HLD - Impaired glucose tolerance - Hypothyroidism - GERD - LIBERTY on CPAP PLAN BY SYSTEM N: Continue pain control with acetaminophen q6h prn and oxycodone 5-15 mg q4h prn CV: Continue amlodipine 5 mg qd, lisinopril 10 mg qd, metoprolol 25 mg qd, and rosuvastatin 10 mg qhs Pulm: ROSA GI: Regular diet as tolerated /FE: Patient can now ambulate to bathroom ID: ROSA Heme: SCDs Endo: Continue levothyroxine 175 mcg qam DISPO: Plan to discharge home today before noon. Encourage OOB as tolerated Code status: Full Amari Reilly 01/29/2019 Vascular Surgery * Plan of Care - Ivis Meeks RN - 01/29/2019 5:59 AM EDT Problem: Patient Care Overview Goal: Plan of Care Review Outcome: Ongoing (Interventions Implemented as Appropriate) 01/29/19 0549 Coping/Psychosocial Plan Of Care Reviewed With patient Plan of Care Review Progress progress toward functional goals as expected OUTCOME EVALUATION NOTE: OUTCOME SUMMARY: He had an okay night. Pt slept in between care. AAOx4. SBP elevated 154, PRN labetalol given. BP recheck 164, paged and assessed pt and requested to recheck BP in half hour. SBP recheck 177, hydralazine given. Afebrile. Pt denies nausea. Pt c/o back pain, tylenol given. Pt voiding adequate amounts with low PVR's. No BMs this shift. Incisions CDI. Pulses dopperable. IV antibiotics given. Pt remains on bedrest and very anxious to be able to move around and go home. Will continue to monitor. PLAN MOVING FORWARD: Ambulation Control BP D/C to home INDIVIDUALIZED FALL PREVENTION INTERVENTIONS: Patient-specific fall risk factors per assessment: [current deficits]: IV pole Assistance [level of assistance required for transfers and ambulation]: indep Supervision [direct monitoring required during toileting and ADLs]: Arms reach Surveillance [continuous indirect monitoring]: Ta, purposeful rounding, call santizo in reach Patient-specific fall prevention interventions for sensory deficits provided, if applicable: [X] Yes, environmental modifications, lights adjusted to task, non- skid socks CPG GOAL OUTCOME EVALUATION: Ongoing Goal: Fall Prevention-Safe Patient Handling Outcome: Ongoing (Interventions Implemented as Appropriate) 01/28/19 1628 01/28/19 1945 01/29/19 0400 Zuñiga Fall Risk History of Falling -- 0 -- Secondary Diagnosis -- 15 -- Ambulatory Aids -- 0 -- Intravenous Therapy/Heparin/Saline Lock -- 20 -- Gait/Transferring -- 0 -- Mental Status -- 0 -- Score -- 35 -- OTHER Zuñiga Fall Risk -- Med -- Restraint Interventions Safety Promotion/Fall Prevention -- -- safety round/check completed Positioning Body Position -- independent -- Activity Activity Type -- bedrest -- Assistive Device Utilized none -- -- Goal: Infection Control Outcome: Ongoing (Interventions Implemented as Appropriate) 01/28/19194401/28/192199 Safety Interventions Isolation Precautions -- standard precautions maintained Infection Prevention -- equipment surfaces disinfected;environmental surveillance performed;personal protective equipment utilized;rest/sleep promoted;single patient room provided Coping Strategies Supportive Measures active listening utilized;verbalization of feelings encouraged -- Goal: Discharge Needs Assessment Outcome: Ongoing (Interventions Implemented as Appropriate) 01/29/19 0549 Discharge Needs Assessment Readmission Within The Last 30 Days no previous admission in last 30 days Discharge Disposition still a patient Living Environment Transportation Available family or friend will provide Goal: Interdisciplinary Rounds/Family Conf Outcome: Ongoing (Interventions Implemented as Appropriate) 01/29/19 0549 Interdisciplinary Rounds/Family Conf Participants nursing;physician;patient * Op Note - Sunita Arellano MD - 01/28/2019 11:01 AM EDT [facility] Operative Note Patient Name: Sebastian Wyatt : [id number] MR#: [id number] Case Date: 01/28/2019 Surgeon: Surgeon(s) and Role: * Brandon Gregorio MD - Primary * Sunita Arellano MD - Fellow Preoperative diagnosis: asymptomatic infrarenal AAA Postoperative diagnosis: asymptomatic infrarenal AAA Procedure: endovascular repair of abdominal aortic aneurysm (Monroe Excluder), bilateral percutaneousfemoral artery access Findings: Anatomy consistent with pre-operative imaging. Bilateral percutaneous femoral arterial access (16Fr left, 12Fr right).??Successful repair of infrarenal abdominal aortic aneurysm with Monroe Excluder bifurcated device, main body via left side (26x14.1x115ip), contralateral right limb (14.3e863yo) and ipsilateral iliac extension (14.7x70mm). All devices had excellent endpoints,??deployed indesired location. Initial completion angiogram with type IA endoleak, angioplasty of the proximal main body was performed with resolution of the endoleak. Completion angiogram demonstrated good position of stent grafts, no attachment or junction endoleak, stenosis or other problems. Internal iliacspreserved bilaterally. Good hemostasis with bilateral pre-close technique (1 R, 2 L). 2+ palpablepedal pulses (DP bilaterally). Neuro intact at completion Anesthesia: General IV fluids: 1400cc Blood products: none Urine output: 750cc Estimated blood loss: 50cc Heparin: 13,000 units Protamine: 50mg Fluoro time: 21.8cc Contrast dye: 77cc Specimens removed during surgery: None Drains: None Surgical Closure: Primary Closure - skin incision is completely closed without any wires, tova, drains or other devices Disposition: awakened from anesthesia, extubated and taken to the recovery room in a stable condition, having suffered no apparent untoward event. Condition: doing well without problems (Please see the Surgical Encounter Summary for any Implant and Specimen details pertinent to this patient.) HPI/Surgical Indications: Mr. Wyatt is a 63 year-old man with an asymptomatic 5.7cm infrarenal AAA who presents today for endovascular repair. Risks of surgery reviewed with patient who agrees to proceed. Procedure Description: After informed consent was obtained the patient was brought back to the operating room and placed supine on the OR table. General anesthesia was induced and the patient was intubated with an ETT. Additional support lines (benitez, arterial line, PIVs) were placed. Preoperative antibiotics were given. A timeout was performed. Attention was then turned to the patient's bilateral groins which were prepped and draped in the standard sterile fashion. Retrograde percutanoues access of bilateral common femoral arteries was achieved using micropuncture technique under ultrasound and fluoroscopic guidance. Each micropuncture sheath was upsized to 10cm 5Fr sheaths over jwires. Onthe left, two Perclose devices were placed and secured to the drapes for use at the end of the case. One the right, a single Perclose was placed in a similar pre-close fashion. Following Perclose placement bilateral 10cm 8Fr sheaths were placed. Next, from the left, a KMP catheter was advanced over the jwire into the descending aorta. The jwire was exchanged for an Amplatz and the 8Fr sheath was exchanged for a 16Fr Dryseal, advanced to the level of the renal arteries. Systemic heparin was given. On the right, a pigtail catheter was placed over the jwire, to the level of the renal arteries.Next, the main body of the device (Monroe Excluder C3 [id number]) was advanced over the Amplatz tothe level of the renals. Arteriography was performed and the renal arteries were marked. The Dryseal sheath was backed out to uncover the Monroe Excluder which was then partially deployed until the contralateral gate was opened. From the right groin, a glidewire and KMP catheter were used to attempt to cannulate the contralateral limb, but we were unsuccessful due to the contralateral gate position. The wire was exchanged for an Amplatz wire and the sheath was exchanged for a Tourguide sheath. The contralateral gate was cannulated with the Tourguide, KMP and glidewire. The KMP was then advancedto the top of the endograft spun and injected with contrast to confirm position. Satisfied with ourcannulation, the glidewire was exchanged from an Amplatz through the KMP and the Tourguide sheath in the right groin was exchanged for a 12Fr Dryseal sheath. We advanced the contralateral limb ([id number]) from the right and positioned with adequate overlap into the main body proximally. Angiogram was performed to localize the right iliac bifurcation, after which the device was deployed. Next, wecompleted deployment of the main body and the ipsilateral limb. A MOB balloon was then used to gently appose the stentgrafts at the the proximal, distal and overlap positions. From the left, using a pigtail catheter, completion angiogram was performed. This showed evidence of a type IA endoleak. The MOB balloon was advanced from the right and used to angioplasty the proximal aspect of the main body. Repeat angiogram demonstrated resolution of the type IB endoleak. Angiogram of the left iliac bifurcation was then performed. The decision was made to extend the left iliac limb. A 14.5x70mm iliacextender was advanced from the left, positioned with adequate proximal overlap and deployed proximal to the iliac bifurcation. ?? Satisfied with our results the decision was made to close. The Dryseal sheaths were removed from each groin, leaving the wire in place. Perclose sutures were cinched down with satisfactory hemostasisbilaterally. Wires were then removed and the Perclose devices were secured. Direct pressure was held on each groin for 15 minutes. Protamine was given. Hemostasis was satisfactory following this. Thestab incisions in each groin were close with dermabond and dressed with gauze and tegaderm. ?? The patient was awoken, extubated and taken to PACU in stable condition. All counts were correct. Dr. Gregorio was present and scrubbed for the entire procedure. Associated attestation - Brandon Gregorio MD - 01/28/2019 4:17 PM EDT Attestation: Case Date: 01/28/2019 I was present and I participated during the entire procedure (does not need to include opening and closing). BRANDON GREGORIO MD 01/28/2019 documented in this encounter Plan of Treatment Upcoming Encounters Date Type Department Care Team (Late st Contact Info) Description 05/24/2025 11:00 AM EDT Office Visit Radiation Oncology at [address] [phone] Jesse Mcmahan MD [facility] [place] [address] Scheduled Orders Name Type Priority Associated Diagnoses Orde r Schedule IR OR VASC Aniogram Image Storage Only Imaging Storage Only Routine Once PRN (for Radian t use) for 1 Occurrences starting 01/28/2019 until 01/28/2019, 1 completed documented as of this encounter Procedures Procedure Name Priority Date/Time Associated Diagnosis Comments IMPLANTABLE DEVICES SCAN 01/31/2019 12:00 AM EDT HEMOGRAM Routine 01/29/2019 6:45 AM EDT DIFFERENTIAL, AUTOMATED Routine 01/29/2019 6:45 AM EDT CBC (WITH DIFF) Routine 01/29/2019 6:45 AM EDT BASIC METABOLIC PANEL Routine 01/29/2019 6:45 AM EDT HEMOGRAM Routine 01/28/2019 3:25 PM EDT DIFFERENTIAL, AUTOMATED Routine 01/28/2019 3:25 PM EDT CBC (WITH DIFF) Routine 01/28/2019 3:25 PM EDT HEMOGRAM Routine 01/28/2019 11:25 AM EDT DIFFERENTIAL, AUTOMATED Routine 01/28/2019 11:25 AM EDT CBC (WITH DIFF) Routine 01/28/2019 11:25 AM EDT BASIC METABOLIC PANEL Routine 01/28/2019 11:25 AM EDT IR OR VASC ANGIOGRAM IMAGE STORAGE ONLY Routine 01/28/2019 11:05 AM EDT BLOOD GAS ARTERIAL POC Routine 01/28/2019 9:00 AM EDT PERC ACCESS & CLOSURE OF FEMORAL ARTER FOR DELIVERY OF ENDOGRAFT THROUGH LARGE SHEATH (WRVU 2.5) Yes 01/28/2019 8:26 AM EDT AAA @EVG, AORTA/ILIAC ART RPR [id number] ENDOGRAFT; ANEURX (WRVU 29.58) Yes 01/28/2019 8:26 AM EDT AAA ABORH RECHECK STATUS STAT 01/28/2019 7:21 AM EDT SCAN, PERIPHERAL BLOOD STAT 01/28/2019 7:21 AM EDT HEMOGRAM STAT 01/28/2019 7:21 AM EDT DIFFERENTIAL, AUTOMATED STAT 01/28/2019 7:21 AM EDT ABO/RH TYPING STAT 01/28/2019 7:21 AM EDT CBC (WITH DIFF) STAT 01/28/2019 7:21 AM EDT ANTIBODY SCREEN STAT 01/28/2019 7:21 AM EDT TYPE AND SCREEN ([facility] [place]KELVIN) STAT 01/28/2019 7:21 AM EDT BASIC METABOLIC PANEL STAT 01/28/2019 7:21 AM EDT EVG, AORTA/ILIAC ART RPR [id number] ENDOGRAFT; ANEURX Routine 01/28/2019 6:52 AM EDT documented in this encounter Results * CT [...] number below. ? Electronically signed by: Bernardino Roberts, [facility] ([phone]), at 03/04/2019 2:37 PM Narrative 03/04/2019 2:37 [...] aortic aneurysm with bifurcated aortoiliac stent graft. [place] sac now measures 58 x 50 mm in maximum dimension on centerline reformatted images (in the axial plane it measures 55 x 59 mm). On the arterial phase images a small blush of enhancement is seen external to the endograft in the yurok aneurysm sac in the location of the [...] contact the number below. Electronically signed by: Bernardino Roberts [facility]([phone]), at 03/04/2019 2:37 PM Brandon Gregorio MD IMG CT ORDERABLES * SCAN DOC: IMPLANTABLE DEVICES (01/31/2019 12:00 AM EDT) Narrative 01/31/2019 12:00 AM EDT Ordered by an unspecified provider. Scanning Provider MEDIA MGR SCAN EXT O RDR/RSLT * (ABNORMAL) Differential, Automated (01/29/2019 6:45 AM EDT) Neutrophil % 79.7 % [facility] Neutrophil Absolute 10.34(H) 1.70 - 6.10 x10(3)/mc L [facility] Lymph % 11.3 % [facility] Lymphocytes Abs 1.5 0.9 - 3.2 x10(3)/mc L [facility] Monocyte % 7.2 % [facility] Monocyte Abs 0.9 0.3 - 0.9 x10(3)/mc L [facility] Eos % 0.3 % [facility] Eosinophils Abs 0.0 0.0 - 0.4 x10(3)/mc L [facility] Basophil % 0.4 % [facility] Baso Absolute 0.0 0.0 - 0.1 x10(3)/mc L [facility] Immature Gran % 1.10 % [facility] Comment: Immature granulocytes(IG's)percentage and absolute count will include metamyelocytes, myelocytes, and promyelocytes. Blood smears from CBCs yielding IG's will be scanned manually for concordance. If this scan disagrees with the automated IG or if promyelocytes are noted, a manual differential will be performed. Immature Gran Absolute 0.14(H) 0.00 - 0.04 x10(3)/[facility] Blood specimen (specimen) 01/29/2019 6:45 AM EDT 01/29/2019 7:04 AM EDT Narrative Resulting Agency Comment Spec In Lab Ysabel Santana MD HEMATOLOGY ORDERABL ES [facility] [place] [address] * (ABNORMAL) Hemogram (01/29/2019 6:45 AM EDT) White Blood Cell 13.0(H) 4.0 - 9.5 x10(3)/[facility] Red Blood Cell 6.14(H) 4.58 - 5.54 x10(6)/[facility] Hemoglobin 12.5(L) 13.7 - 16.5 gm/dL [facility] Hematocrit 40.2(L) 40.5 - 48.5 % [facility] Mean Cell Volume 65.5(L) 82.9 - 93.1 [facility] Mean Cell Hemoglobin 20.4(L) 27.5 - 32.1 pg [facility] Mean Cell Hemoglobin Concentration 31.1(L) 32.0 - 35.7 gm/dL [facility] Platelet 205 145 - 357 x10(3)/[facility] RDW Standard Deviation 33.8(L) 36.0 - 45.0 [facility] RDW coefficient of variation 15.9(H) 11.4 - 13.8 % [facility] Mean Platelet Volume 10.4 7.6 - 12.9 [facility] NRBC% auto 0.0 % [facility] NRBC Absolute 0.000 0.000 - 0.000 x10(3)/[facility] Blood specimen (specimen) 01/29/2019 6:45 AM EDT 01/29/2019 7:04 AM EDT Narrative Resulting Agency Comment Spec In Lab Ysabel Santana MD HEMATOLOGY ORDERABL ES [facility] [place] [address] * Basic Metabolic Panel (non-fasting) (01/29/2019 6:45 AM EDT) Glucose 115 65 - 199 mg/dL [facility] Comment:Diabetes: >=200 mg/d L plus symptoms Blood Urea Nitrogen 14 10 - 20 mg/dL [facility] Creatinine 0.96 0.80 - 1.50 mg/dL [facility] Sodium 141 135 - 145 mmol/L [facility] Potassium 3.8 3.5 - 5.0 mmol/L [facility] Comment: Please note: ??Patients with WBC >100,000 may have falsely elevated Potassium levels. ??For accurate Potassium quantification in these patients send serum separator tube (gold top) for subsequent determinations. ??Contact the Clinical Chemistry Laboratory if there are any questions. Chloride 104 98 - 107 mmol/L [facility] Carbon Dioxide 24 22 - 31 mmol/L [facility] Anion Gap 13 5 - 15 mmol/L [facility] Calcium 9.5 8.5 - 10.5 mg/dL [facility] Est Glomerular Filtration Rate 84 >=60 mL/min/1. 73 m?? [facility] Comment: The eGFR was calculated using the CKD-EPI equation. As with all creatinine based estimates of kidney function, eGFR values calculated with the CKD-EPI equation are not accurate in patients with acute kidney failure, extremes of body mass or the acutely ill. [email or web address] eGFR 98 >=60 mL/min/1. 73 m?? [facility] Comment: The eGFR was calculated using the CKD-EPI equation. As with all creatinine based estimates of kidney function, eGFR values calculated with the CKD-EPI equation are not accurate in patients with acute kidney failure, extremes of body mass or the acutely ill. [email or web address] Blood specimen (specimen) 01/29/2019 6:45 AM EDT 01/29/2019 7:04 AM EDT Narrative Resulting Agency Comment Spec In Lab Brandon Gregorio MD CHEMISTRY ORDERABLES [facility] [place] [address] * (ABNORMAL) Differential, Automated (01/28/2019 3:25 PM EDT) Neutrophil % 90.3 % [facility] Neutrophil Absolute 9.90(H) 1.70 - 6.10 x10(3)/mc L [facility] Lymph % 4.7 % [facility] Lymphocytes Abs 0.5(L) 0.9 - 3.2 x10(3)/ L [facility] Monocyte % 2.8 % [facility] Monocyte Abs 0.3 0.3 - 0.9 x10(3)/mc L [facility] Eos % 0.1 % [facility] Eosinophils Abs 0.0 0.0 - 0.4 x10(3)/ L [facility] Basophil % 0.5 % [facility] Baso Absolute 0.0 0.0 - 0.1 x10(3)/ L [facility] Immature Gran % 1.60 % [facility] Comment: Immature granulocytes(IG's)percentage and absolute count will include metamyelocytes, myelocytes, and promyelocytes. Blood smears from CBCs yielding IG's will be scanned manually for concordance. If this scan disagrees with the automated IG or if promyelocytes are noted, a manual differential will be performed. Immature Gran Absolute 0.18(H) 0.00 - 0.04 x10(3)/mc L [facility] Blood specimen (specimen) 01/28/2019 3:25 PM EDT 01/28/2019 3:52 PM EDT Narrative Resulting Agency Comment Spec In Lab Sunita Arellano MD HEMATOLOGY O RDERABLES [facility] [place] [address] * (ABNORMAL) Hemogram (01/28/2019 3:25 PM EDT) White Blood Cell 11.0(H) 4.0 - 9.5 x10(3)/[facility] Red Blood Cell 5.85(H) 4.58 - 5.54 x10(6)/[facility] Hemoglobin 11.8(L) 13.7 - 16.5 gm/dL [facility] Hematocrit 38.5(L) 40.5 - 48.5 % [facility] Mean Cell Volume 65.8(L) 82.9 - 93.1 [facility] Mean Cell Hemoglobin 20.2(L) 27.5 - 32.1 pg [facility] Mean Cell Hemoglobin Concentration 30.6(L) 32.0 - 35.7 gm/dL [facility] Platelet 194 145 - 357 x10(3)/[facility] RDW Standard Deviation 34.1(L) 36.0 - 45.0 [facility] RDW coefficient of variation 14.8(H) 11.4 - 13.8 % [facility] Mean Platelet Volume 9.5 7.6 - 12.9 [facility] NRBC% auto 0.0 % [facility] NRBC Absolute 0.000 0.000 - 0.000 x10(3)/[facility] Blood specimen (specimen) 01/28/2019 3:25 PM EDT 01/28/2019 3:52 PM EDT Narrative Resulting Agency Comment Spec In Lab Sunita Arellano MD HEMATOLOGY O RDERABLES Performing Organization Address City/[facility]/ZIP Co de Phone Number [facility] [address] * (ABNORMAL) Differential, Automated (01/28/2019 11:25 AM EDT) Neutrophil % 73.4 % [facility] Neutrophil Absolute 5.87 1.70 - 6.10 x10(3)/mc L [facility] Lymph % 17.9 % [facility] Lymphocytes Abs 1.4 0.9 - 3.2 x10(3)/ L [facility] Monocyte % 4.0 % [facility] Monocyte Abs 0.3 0.3 - 0.9 x10(3)/ L [facility] Eos % 1.1 % [facility] Eosinophils Abs 0.1 0.0 - 0.4 x10(3)/[facility] Basophil % 1.0 % [facility] Baso Absolute 0.1 0.0 - 0.1 x10(3)/ L [facility] Immature Gran % 2.60 % [facility] Comment: Immature granulocytes(IG's)percentage and absolute count will include metamyelocytes, myelocytes, and promyelocytes. Blood smears from CBCs yielding IG's will be scanned manually for concordance. If this scan disagrees with the automated IG or if promyelocytes are noted, a manual differential will be performed. Immature Gran Absolute 0.21(H) 0.00 - 0.04 x10(3)/mc L [facility] Blood specimen (specimen) 01/28/2019 11:25 AM EDT 01/28/2019 12:00 PM EDT Narrative Resulting Agency Comment Spec In Lab Sunita Arellano MD HEMATOLOGY O RDERABLES Performing Organization Address City/[facility]/ZIP Co de Phone Number [facility] [address] * (ABNORMAL) Hemogram (01/28/2019 11:25 AM EDT) Pathologist [facility] White Blood Cell 8.0 4.0 - 9.5 x10(3)/[facility] Red Blood Cell 5.76(H) 4.58 - 5.54 x10(6)/[facility] Hemoglobin 11.5(L) 13.7 - 16.5 gm/dL [facility] Hematocrit 38.6(L) 40.5 - 48.5 % [facility] Mean Cell Volume 67.0(L) 82.9 - 93.1 [facility] Mean Cell Hemoglobin 20.0(L) 27.5 - 32.1 pg [facility] Mean Cell Hemoglobin Concentration 29.8(L) 32.0 - 35.7 gm/dL [facility] Platelet 190 145 - 357 x10(3)/[facility] RDW Standard Deviation 34.6(L) 36.0 - 45.0 [facility] RDW coefficient of variation 14.9(H) 11.4 - 13.8 % [facility] Mean Platelet Volume 10.4 7.6 - 12.9 [facility] NRBC% auto 0.0 % [facility] NRBC Absolute 0.000 0.000 - 0.000 x10(3)/[facility] Blood specimen (specimen) 01/28/2019 11:25 AM EDT 01/28/2019 12:00 PM EDT Narrative Resulting Agency Comment Spec In Lab Sunita Arellano MD HEMATOLOGY O RDERABLES [facility] [place] [address] * Basic Metabolic Panel (non-fasting) (01/28/2019 11:25 AM EDT) Glucose 183 65 - 199 mg/dL [facility] Comment:Diabetes: >=200 mg/d L plus symptoms Blood Urea Nitrogen 16 10 - 20 mg/dL [facility] Creatinine 0.89 0.80 - 1.50 mg/dL [facility] Sodium 140 135 - 145 mmol/L [facility] Potassium 4.5 3.5 - 5.0 mmol/L [facility] Comment: Please note: ??Patients with WBC >100,000 may have falsely elevated Potassium levels. ??For accurate Potassium quantification in these patients send serum separator tube (gold top) for subsequent determinations. ??Contact the Clinical Chemistry Laboratory if there are any questions. Chloride 105 98 - 107 mmol/L [facility] Carbon Dioxide 24 22 - 31 mmol/L [facility] Anion Gap 11 5 - 15 mmol/L [facility] Calcium 8.7 8.5 - 10.5 mg/dL [facility] Est Glomerular Filtration Rate 92 >=60 mL/min/1. 73 m?? [facility] Comment: The eGFR was calculated using the CKD-EPI equation. As with all creatinine based estimates of kidney function, eGFR values calculated with the CKD-EPI equation are not accurate in patients with acute kidney failure, extremes of body mass or the acutely ill. [email or web address] eGFR 106 >=60 mL/min/1. 73 m?? [facility] Comment: The eGFR was calculated using the CKD-EPI equation. As with all creatinine based estimates of kidney function, eGFR values calculated with the CKD-EPI equation are not accurate in patients with acute kidney failure, extremes of body mass or the acutely ill. [email or web address] Blood specimen (specimen) 01/28/2019 11:25 AM EDT 01/28/2019 12:00 PM EDT Narrative Resulting Agency Comment Spec In Lab Brandon Gregorio MD CHEMISTRY ORDERABLES [facility] [place] [address] * IR OR VASC Aniogram Image Storage Only (01/28/2019 11:05 AM EDT) Narrative DEXTER LEZAMA - 01/28/2019 11:05 AM EDT This exam is auto-finalizing. It's purpose is for storage only. Brandon Gregorio MD IMG FILM LIBRARY ORD ERABLES [place], [place] * (ABNORMAL) BLOOD GAS 2 ARTERIAL (01/28/2019 9:00 AM EDT) pH, Arterial 7.39 7.35 - 7.45 [facility] PCO2, Arterial 38 35 - 45 mmHg [facility] PO2, Arterial 204(H) 85 - 104 mmHg [facility] Bicarbonate, Arterial 23.0 20.0 - 26.0 mmol/L [facility] Base Excess, Arterial -2.5 -3.0 - 3.0 mmol/L [facility] Hgb Blood Gas 12.6(L) 13.7 - 16.5 gm/dL [facility] Oxyhemoglobin, Arterial 98.3(H) 94.0 - 97.0 % [facility] Carboxyhemoglob in, Arterial 0.7 % [facility] Comment: Nonsmokers: 0.5-1.5% COHB Smokers: Variable, but usually less than 10% Toxic: 20-30% COHB Lethal: Greater than 60% COHB Methemoglobin, Arterial 0.3 <=1.5 % [facility] Na Whole Blood 136 135 - 145 mmol/L [facility] K Whole Blood 3.8 3.5 - 5.0 mmol/L [facility] Comment: Please note: Patients with WBC >100,000 may have falsely elevated Potassium levels. Contact the Clinical Chemistry Laboratory if there are any questions. ICa Whole Blood 1.18 1.15 - 1.33 mmol/L [facility] Comment: Note: ??Total bilirubin higher than 20 mg/dL may lead to falsely low ionized calcium. CL Whole Blood 103 98 - 107 mmol/L [facility] Gluc Whole Bld 126 65 - 199 mg/dL [facility] Comment:Diabetes: >=200 mg/d L plus symptoms. Lactate WB 2.8(H) 0.5 - 2.2 mmol/L [facility] FIO2 Art 59 % [facility] PF Ratio Art 346 [facility] Temp Art 34.8 Celsius [facility] Blood specimen (specimen) 01/28/2019 9:00 AM EDT 01/28/2019 9:00 AM EDT Brandon Gregorio MD POINT OF CARE TEST O RDERAKRYSTLE Performing Organization Address City/[facility]/ZIP Co de Phone Number [facility] [address] * Scan, Peripheral Blood (01/28/2019 7:21 AM EDT) Plat estimate Normal [facility] RBC Morphology Abnormal [facility] Microcyte 6-10 /HPF [facility] Ovalocytes 1-5 /HPF [facility] Tear Cell 1-5 /HPF [facility] Plat, Giant Less than 1 /HPF [facility] Blood specimen (specimen) 01/28/2019 7:21 AM EDT 01/28/2019 7:28 AM EDT Narrative Resulting Agency Comment Spec In Lab Sunita Arellano MD HEMATOLOGY O RDERABLES [facility] [place] [address] * ABORH Recheck Status (01/28/2019 7:21 AM EDT) ABORH Recheck Order Order Placed [facility] ABORH Type Recheck Complete [facility] Blood specimen (specimen) 01/28/2019 7:21 AM EDT 01/28/2019 7:27 AM EDT Narrative Resulting Agency Comment Spec In Lab Sunita Arellano MD BLOOD BANK L AB ORDERABLES [facility] [place] [address] * Antibody screen (01/28/2019 7:21 AM EDT) Ab Screen Interp Negative [facility] Expires at [id number] on: 01/31/2019 [facility] Blood specimen (specimen) 01/28/2019 7:21 AM EDT 01/28/2019 7:27 AM EDT Narrative Resulting Agency Comment Spec In Lab Sunita Arellano MD BLOOD BANK L AB ORDERABLES Performing Organization Address City/[facility]/ZIP Co de Phone Number [facility] [place] [address] * ABO/Rh Typing (01/28/2019 7:21 AM EDT) ABORH Type O Pos [facility] Blood specimen (specimen) 01/28/2019 7:21 AM EDT 01/28/2019 7:27 AM EDT Narrative Resulting Agency Comment Spec In Lab Sunita Arellano MD BLOOD BANK L AB ORDERABLES Performing Organization Address City/[facility]/ZIP Co de Phone Number [facility] [place] [address] * (ABNORMAL) Differential, Automated (01/28/2019 7:21 AM EDT) Neutrophil % 68.6 % [facility] Neutrophil Absolute 6.80(H) 1.70 - 6.10 x10(3)/mc L [facility] Lymph % 18.6 % [facility] Lymphocytes Abs 1.8 0.9 - 3.2 x10(3)/ L [facility] Monocyte % 7.9 % [facility] Monocyte Abs 0.8 0.3 - 0.9 x10(3)/[facility] Eos % 1.7 % [facility] Eosinophils Abs 0.2 0.0 - 0.4 x10(3)/[facility] Basophil % 1.3 % [facility] Baso Absolute 0.1 0.0 - 0.1 x10(3)/[facility] Immature Gran % 1.90 % [facility] Comment: Immature granulocytes(IG's)percentage and absolute count will include metamyelocytes, myelocytes, and promyelocytes. Blood smears from CBCs yielding IG's will be scanned manually for concordance. If this scan disagrees with the automated IG or if promyelocytes are noted, a manual differential will be performed. Immature Gran Absolute 0.19(H) 0.00 - 0.04 x10(3)/[facility] Blood specimen (specimen) 01/28/2019 7:21 AM EDT 01/28/2019 7:28 AM EDT Narrative Resulting Agency Comment Spec In Lab Sunita Arellano MD HEMATOLOGY O RDERABLES Performing Organization Address City/State/[facility] Co de Phone Number [facility] [place] [address] * (ABNORMAL) Hemogram (01/28/2019 7:21 AM EDT) White Blood Cell 9.9(H) 4.0 - 9.5 x10(3)/[facility] Red Blood Cell 6.33(H) 4.58 - 5.54 x10(6)/[facility] Hemoglobin 12.8(L) 13.7 - 16.5 gm/dL [facility] Hematocrit 42.6 40.5 - 48.5 % [facility] Mean Cell Volume 67.3(L) 82.9 - 93.1 fL [facility] Mean Cell Hemoglobin 20.2(L) 27.5 - 32.1 pg [facility] Mean Cell Hemoglobin Concentration 30.0(L) 32.0 - 35.7 gm/dL [facility] Platelet 227 145 - 357 x10(3)/mc L [facility] RDW Standard Deviation 34.1(L) 36.0 - 45.0 fL [facility] RDW coefficient of variation 15.5(H) 11.4 - 13.8 % [facility] Mean Platelet Volume 10.2 7.6 - 12.9 fL [facility] NRBC% auto 0.0 % [facility] NRBC Absolute 0.000 0.000 - 0.000 x10(3)/mc L [facility] Blood specimen (specimen) 01/28/2019 7:21 AM EDT 01/28/2019 7:28 AM EDT Narrative Resulting Agency Comment Spec In Lab Sunita Arellano MD HEMATOLOGY O RDERABLES [facility] [place] [address] * Basic Metabolic Panel (non-fasting) (01/28/2019 7:21 AM EDT) Glucose 112 65 - 199 mg/dL [facility] Comment:Diabetes: >=200 mg/d L plus symptoms Blood Urea Nitrogen 19 10 - 20 mg/dL [facility] Creatinine 1.08 0.80 - 1.50 mg/dL [facility] Sodium 140 135 - 145 mmol/L [facility] Potassium 4.7 3.5 - 5.0 mmol/L [facility] Comment: Please note: ??Patients with WBC >100,000 may have falsely elevated Potassium levels. ??For accurate Potassium quantification in these patients send serum separator tube (gold top) for subsequent determinations. ??Contact the Clinical Chemistry Laboratory if there are any questions. Chloride 103 98 - 107 mmol/L [facility] Carbon Dioxide 27 22 - 31 mmol/L [facility] Anion Gap 10 5 - 15 mmol/L [facility] Calcium 9.5 8.5 - 10.5 mg/dL [facility] Est Glomerular Filtration Rate 73 >=60 mL/min/1. 73 m?? [facility] Comment: The eGFR was calculated using the CKD-EPI equation. As with all creatinine based estimates of kidney function, eGFR values calculated with the CKD-EPI equation are not accurate in patients with acute kidney failure, extremes of body mass or the acutely ill. [email or web address] eGFR 85 >=60 mL/min/1. 73 m?? [facility] Comment: The eGFR was calculated using the CKD-EPI equation. As with all creatinine based estimates of kidney function, eGFR values calculated with the CKD-EPI equation are not accurate in patients with acute kidney failure, extremes of body mass or the acutely ill. [email or web address] Blood specimen (specimen) 01/28/2019 7:21 AM EDT 01/28/2019 7:28 AM EDT Narrative Resulting Agency Comment Spec In Lab Brandon Gregorio MD CHEMISTRY ORDERABLES [facility] [place] [address] documented in this encounter Visit Diagnoses Diagnosis AAA (abdominal aortic aneurysm) without rupture Abdominal aneurysm without mention of rupture AAA (abdominal aortic aneurysm) without rupture Abdominal aneurysm without mention of rupture AAA (abdominal aortic aneurysm) without rupture Abdominal aneurysm without mention of rupture documented in this encounter Administered Medications Inactive Administered Medications - up to 3 most recent administrations Medication Order MAR Action Action Date Dose Rate Site acetaminophen (TYLENOL) tablet 1,000 mg 1,000 mg, Oral, ONCE, 1 dose, On Thu01/28/19 at 0800, Administer with SIP of H2O only., Day of Surgery (Day of Procedure), Routine Given 01/28/2019 8:00 AM EDT 1,000 mg acetaminophen (TYLENOL) tablet 650 mg 650 mg, Oral, EVERY 6 HOURS PRN, Starting on Thu01/28/19 at 1154, Until 01/29/19 at 1448, Pain, Fever, Administer for temperature greater than or equal to 38.2 degrees celsius. Maximum daily dose of acetaminophen from all sources not to exceed 4,000 mg., Routine Given 01/29/2019 12:06 AM EDT 650 mg amLODIPine (NORVASC) tablet 5 mg 5 mg, Oral, DAILY, First dose on 01/29/19 at 0900, Until Discontinued, Therapeutic interchange to formulary alternative, Routine Given 01/29/2019 8:08 AM EDT 5 mg ceFAZolin (ANCEF) 2g in dextrose 5% 100 mL 2 g, Intravenous, EVERY 8 HOURS, 3 doses, First dose on Thu01/28/19 at 1215, Last dose on Thu01/29/19 at 0415, Administer over 30 Minutes, Indication for (Active or Suspected): Prophylaxis New Bag 01/29/2019 3:24 AM EDT 2 g 200 mL/hr New Bag 01/28/2019 8:08 PM EDT 2 g 200 mL/hr New Bag 01/28/2019 12:02 PM EDT 2 g 200 mL/hr docusate sodium (COLACE) capsule 100 mg 100 mg, Oral, 2 TIMES DAILY, First dose on Thu01/28/19 at 2100, Until Discontinued, Routine Given 01/29/2019 8:12 AM EDT 100 mg Given 01/28/2019 8:04 PM EDT 100 mg folic acid (FOLVITE) tablet 5,000 mcg 5,000 mcg (5 mg), Oral, DAILY, First dose on 01/29/19 at 0900, Until Discontinued, Routine Given 01/29/2019 8:09 AM EDT 2,000 mcg hydrALAZINE (APRESOLINE) injection 10 mg 10 mg, Intravenous, EVERY 6 HOURS PRN, Starting on Thu01/28/19 at 1203, Until Thu01/29/19 at 1448, High Blood Pressure, SBP>160 and HR<90 Given 01/29/2019 5:26 AM EDT 10 mg Given 01/28/2019 1:55 PM EDT 10 mg labetalol (NORMODYNE,TRANDATE) injection 10 mg 10 mg, Intravenous, EVERY 4 HOURS PRN, Starting on Thu01/28/19 at 1202, Until Thu01/29/19 at 1448, High Blood Pressure, SBP>150, Hold for HR<60, Routine Given 01/29/2019 3:33 AM EDT 10 mg Given 01/28/2019 12:33 PM EDT 10 mg lactated ringers infusion 1,000 mL, at 100 mL/hr, Intravenous, CONTINUOUS, Starting on Thu01/28/19 at 0800, Until Thu01/28/19 at 1701, Day of Surgery (Day of Procedure) New Bag 01/28/2019 8:26 AM EDT New Bag 01/28/2019 8:00 AM EDT 1,000 mLs 100 mL/hr levothyroxine (SYNTHROID) tablet 175 mcg 175 mcg, Oral, EVERY MORNING, First dose on Thu01/29/19 at 0600, Until Discontinued, Routine Given 01/29/2019 5:29 AM EDT 175 mcg lisinopril (PRINIVIL;ZESTRIL) tablet 10 mg 10 mg, Oral, DAILY, First dose on Thu01/29/19 at 0900, Until Discontinued, Therapeutic interchange to formulary alternative, Routine Given 01/29/2019 8:09 AM EDT 10 mg metoprolol succinate (TOPROL-XL) XL tablet 25 mg 25 mg, Oral, DAILY, First dose on Thu01/29/19 at 0900, Until Discontinued, DO NOT CRUSH OR OPEN, Routine Given 01/29/2019 8:09 AM EDT 25 mg rosuvastatin (CRESTOR) tablet 10 mg 10 mg, Oral, EVERY EVENING, First dose on Thu01/28/19 at 1900, Until Discontinued, Routine Given 01/28/2019 8:08 PM EDT 10 mg sodium chloride 0.9 % (flush) flush 5 mL 5 mL, Intravenous, 2 TIMES DAILY, First dose on Thu01/28/19 at 2100, Until Discontinued, Recovery (Recovery-Hospital Unit), Routine Given 01/29/2019 8:14 AM EDT 5 mLs Given 01/28/2019 8:11 PM EDT 5 mLs sodium chloride 0.9% infusion 1,000 mL, at 100 mL/hr, Intravenous, CONTINUOUS, Starting on Thu01/28/19 at 1215, Until Thu01/28/19 at 1814, Recovery (Recovery-Hospital Unit) New Bag 01/28/2019 12:02 PM EDT 1,000 mLs 100 m L/hr tamsulosin (FLOMAX) ER capsule 0.4 mg 0.4 mg, Oral, DAILY, First dose on Thu01/28/19 at 1915, Until Discontinued, DO NOT CRUSH OR OPEN, Routine Given 01/29/2019 8:08 AM EDT 0.4 mg documented in this encounter Active and Recently Administered Medications Times are shown in EDT. Scheduled Medication Order 01/27/2019 01/28/2019 01/29/2019 acetaminophen (TYLENOL) tablet 1,000 mg (COMPLETED) 1,000 mg, Oral, ONCE, 1 dose, On Thu01/28/19 at 0800, Administer with SIP of H2O only., Day of Surgery (Day of Procedure), Routine 0800 (Given - Provider: Jennifer Gordon RN) amLODIPine (NORVASC) tablet 5 mg(Linked Group 1) 5 mg, Oral, DAILY, First dose on Thu01/29/19 at 0900, Until Discontinued, Therapeutic interchange to formulary alternative, Routine 08 (Given - Provid er: Sabina Sharma RN) apremilast Tab 30 mg 30 mg, Oral, 2 TIMES DAILY, First dose on Thu01/28/19 at 2100, Until Discontinued 2099 (Not Given - Provider: Ivis Meeks RN - Reason: See comment - Comment: pharmacy does not carry this med, pt will bring from home) 0900 (Not Given - Provider: Sabina Sharma RN - Reason: See comment - Comment: not available in our pharmacy) betamethasone dipropionate (DIPROLENE) 0.05 % ointment Topical (Top), 2 TIMES DAILY, First dose on Thu01/28/19 at 2100, Until Discontinued 2099 (Not Given - Provider: Ivis Meeks RN - Reason: Patient/family refused - Comment: pt only takes in morning) 0813 (Not Given - Provider: Sabina Sharma RN - Reason: Patient/family refused) ceFAZolin (ANCEF) 2g in dextrose 5% 100 mL (COMPLETED) 2 g, Intravenous, EVERY 8 HOURS, 3 doses, First dose on Thu01/28/19 at 1215, Last dose on Thu01/29/19 at 0415, Administer over 30 Minutes, Indication for (Active or Suspected): Prophylaxis 1202 (New Bag - Provider: Alexandra Hernandez RN)1232 (Stopped - Provider: Alexandra Hernandez RN)2007 (New Bag - Provider: Ivis Meeks RN)2037 (Stopped - Provider: Ivis Meeks, PRASANTH) 323 (New Bag - Provider: Ivis Meeks RN)035 (Stopped - Provider: Ivis Meeks RN) clindamycin (CLEOCIN) 900mg in dextrose 5% 50mL (COMPLETED) 900 mg, Intravenous, ONCE, 1 dose, On Thu01/28/19 at 0800, Administer over 30 Minutes, Give over 30-60 minutes. Do not exceed 30mg/minute. Redose every 6 hours if CrCl is greater than 20. Redose every 6 hours if CrCl is less than 20., Day of Surgery (Day of Procedure), Indication for (Active or Suspected): Prophylaxis 844 (Given - Provider: Tyson Keenan MD) docusate sodium (COLACE) capsule 100 mg 100 mg, Oral, 2 TIMES DAILY, First dose on Thu01/28/19 at 2100, Until Discontinued, Routine 2003 (Given - Provider: Ivis Meeks RN) 811 (Given - Provider: Sabina Sharma RN) folic acid (FOLVITE) tablet 5,000 mcg 5,000 mcg (5 mg), Oral, DAILY, First dose on Thu01/29/19 at 0900, Until Discontinued, Routine 808 (Given - Provid er: Sabina Sharma RN) levothyroxine (SYNTHROID) tablet 175 mcg 175 mcg, Oral, EVERY MORNING, First dose on Thu01/29/19 at 0600, Until Discontinued, Routine 528 (Given - Provid er: Ivis Meeks RN) lisinopril (PRINIVIL;ZESTRIL) tablet 10 mg(Linked Group 1) 10 mg, Oral, DAILY, First dose on Thu01/29/19 at 0900, Until Discontinued, Therapeutic interchange to formulary alternative, Routine 808 (Given - Provid er: Sabina Sharma RN) metoprolol succinate (TOPROL-XL) XL tablet 25 mg 25 mg, Oral, DAILY, First dose on Thu01/29/19 at 0900, Until Discontinued, DO NOT CRUSH OR OPEN, Routine 0809 (Given - Provid er: Sabina Sharma RN) rosuvastatin (CRESTOR) tablet 10 mg 10 mg, Oral, EVERY EVENING, First dose on Thu01/28/19 at 1900, Until Discontinued, Routine 2007 (Given - Provider: Ivis Meeks RN) sodium chloride 0.9 % (flush) flush 5 mL 5 mL, Intravenous, 2 TIMES DAILY, First dose on Thu01/28/19 at 2100, Until Discontinued, Recovery (Recovery-Hospital Unit), Routine 2010 (Given - Provider: Ivis Meeks RN) 0814 (Given - Provider: Sabina Sharma RN) tamsulosin (FLOMAX) ER capsule 0.4 mg 0.4 mg, Oral, DAILY, First dose on Thu01/28/19 at 1915, Until Discontinued, DO NOT CRUSH OR OPEN, Routine 2006 (Not Given - Provider: Ivis Meeks RN - Reason: Patient/family refused - Comment: pt already took daily dose at home this AM) 0808 (Given - Provider: Sabina Sharma RN) Continuous Medication Order 01/27/2019 01/28/2019 01/29/2019 lactated ringers infusion (CANCELED) 1,000 mL, at 100 mL/hr, Intravenous, CONTINUOUS, Starting on Thu01/28/19 at 0800, Until Thu01/28/19 at 1701, Day of Surgery (Day of Procedure) 0800 (New Bag - Provider: Do familia Gordon RN)0826 (New Bag - Provider: Tyson Keenan MD)1038 (Anesthesia Volume Adjustment - Provider: Tyson Keenan MD)1202 (Stopped - Provider: Alexandra Hernandez RN) sodium chloride 0.9% infusion () 1,000 mL, at 100 mL/hr, Intravenous, CONTINUOUS, Starting on Thu01/28/19 at 1215, Until Thu01/28/19 at 1814, Recovery (Recovery-Hospital Unit) 1202 (New Bag - Provider: Clifford Hernandez RN)1800 (Stopped - Provider: Ivis Meeks RN) PRN Medication Order 01/27/2019 01/28/2019 01/29/2019 acetaminophen (TYLENOL) tablet 650 mg 650 mg, Oral, EVERY 6 HOURS PRN, Starting on Thu01/28/19 at 1154, Until 01/29/19 at 1448, Pain, Fever, Administer for temperature greater than or equal to 38.2 degrees celsius. Maximum daily dose of acetaminophen from all sources not to exceed 4,000 mg., Routine 0006 (Given - Provid er: Ivis Meeks RN) bisacodyl (DULCOLAX) suppository 10 mg 10 mg, Rectal, DAILY PRN, Starting on Thu01/28/19 at 1720, Until 01/29/19 at 1448, Constipation, Administer if needed per patient's routine or if no bowel movement within 48 hours to achieve: (1) One bowel movement every 48 hours, AND (2) Without straining. If multiple PRN bowel medications ordered, start with magnesium hydroxide, then bisacodyl. Multiple medications may be given concomitantly for constipation., Routine hydrALAZINE (APRESOLINE) injection 10 mg 10 mg, Intravenous, EVERY 6 HOURS PRN, Starting on Thu01/28/19 at 1203, Until 01/29/19 at 1448, High Blood Pressure, SBP>160 and HR<90 1355 (Given - Provider: Alexandra Hernandez RN) 0526 (Given - Provider: Ivis Meeks RN) labetalol (NORMODYNE,TRANDATE) injection 10 mg 10 mg, Intravenous, EVERY 4 HOURS PRN, Starting on Thu01/28/19 at 1202, Until 01/29/19 at 1448, High Blood Pressure, SBP>150, Hold for HR<60, Routine 1233 (Given - Provider: Alexandra Hernandez RN) 0333 (Given - Provider: Ivis Meeks RN) lidocaine (XYLOCAINE) 10 mg/mL (1 %) injection 3 mg 3 mg (0.3 mL), Subcutaneous, ONCE PRN, 1 dose, Starting on Thu01/28/19 at 1720, Until 01/29/19 at 1448, for discomfort with PIV insertion, Recovery (Recovery-Hospital Unit), Routine oxyCODONE (ROXICODONE) immediate release tablet 5 mg 5 mg, Oral, EVERY 4 HOURS PRN, Starting on Thu01/28/19 at 1154, Until 01/29/19 at 1448, Pain, May give an additional 5 mg in 30 minutes once if pain not relieved., Routine sodium chloride 0.9 % (flush) flush 5-20 mL 5-20 mL, Intravenous, EVERY 1 MIN PRN, Starting on Thu01/28/19 at 1720, Until 01/29/19 at 1448, flush, Flush pertains to all indwelling lines. Flush per protocol found in the job aid using the link provided on this medication record., Recovery (Recovery-Hospital Unit), Routine Linked Groups Order Group 1: amLODIPine (NORVASC) tablet 5 mgJump to med 5 mg, Oral, DAILY, First dose on 01/29/19 at 0900, Until Discontinued, Therapeutic interchange to formulary alternative, Routine And lisinopril (PRINIVIL;ZESTRIL) tablet 10 mgJump to med 10 mg, Oral, DAILY, First dose on 01/29/19 at 0900, Until Discontinued, Therapeutic interchange to formulary alternative, Routine documented in this encounter Care Teams Scientific Publications Editor Relationship Specialty Start Date End Date Bj Alves MD [address] [place] [phone] PCP - General 06/25/10 04/02/23 documented as of this encounter
--- OUTSIDE RECORDS SUMMARY | 2024-08-01 15:27 | XMS_ITS | Encounter Summary ---
[facility] [place] [address] Care Team Providers Care Enterprise Analyst Name Role Phone Bj Alves MD Primary Care Provider [phone] Reason for Visit * Auth/Cert Specialty Diagnoses / Procedures Referred By Sheila colvin Referred To Contact Diagnoses AAA Procedures PRO ENDOVASC REPAIR DEPLOYMENT [id number] ENDOGRAFT @EVG, AORTA/ILIAC ART RPR [id number] ENDOGRAFT; ANEURX Referral ID Status Reason Start Date Expiration Date Visits Re quested Visits Authorized [id number] 1 1 Encounter Details Date Type Department Care Team (Late st Contact Info) Description 01/28/2019 8:30 AM EDT - 01/28/2019 11:50 AM EDT Surgery [place] [address] Brandon Gregorio MD [facility] [place] [address] @EVG, AORTA/ILIAC ART RPR [id number] ENDOGRAFT; ANEURX (WRVU 29.58) Social History Tobacco Use Types Packs/Day Years [...] Sign Reading Time Taken Comments Blood Pressure 132/66 01/28/2019 11:45 AM EDT Pulse 64 01/28/2019 11:45 AM EDT Temperature 36.3 ??C (97.3 ??F) 01/28/2019 11:07 AM E DT Respiratory Rate 17 01/28/2019 11:45 AM EDT Oxygen Saturation 96% 01/28/2019 11:45 AM EDT Inhaled Oxygen Concentration - - Weight 100.7 kg (222 lb) 01/28/2019 7:34 AM EDT Height 175.3 cm (5' 9) [...] max 3.3 x 5.2 cm. 11/27/11 PET-CT ([facility] Despite premedication, severe claustrophobia allowed this can [...] right).??Successful repair of infrarenal abdominal aortic??aneurysm with Pitkin Excluder bifurcated device, main body via left side (26x14.1f045ac), contralateral right limb (14.0x482bc) and ipsilateral iliac extension (14.7x70mm). All devices [...] Discharge: Patient Instructions You were admitted to [facility] after having your aortic aneurysm repaired with [...] For any problems or questions please call [phone] MAXIM ChavezN, metal expediter Nurse Clinician For issues on weeknights after 5pm and weekends please call [phone] and ask for the Vascular Fellow professional tutor. 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 [phone] Future Orders Complete By Expires CT Angiogram Abdomen & Pelvis w Contrast (Generic) [RRS352 Custom] 02/28/2019 (Approximate) 08/30/2019 Process Instructions: Scheduling Instructions: Questions: Where will study be performed?: [facility] Radiology Reason for exam and clinical history: [...] 8:41 PM EDT You were admitted to [facility] after having your aortic aneurysm repaired with [...] For any problems or questions please call [phone] RAJNI Chavez, metal expediter Nurse Clinician For issues on weeknights after 5pm and weekends please call [phone] and ask for the Vascular Fellow professional tutor. documented in this encounter Medications at Time [...] 01/28/2019 5:36 PM EDT Pt arrived to 413 at 1715 from the PACU. Report received [...] PET SCAN performed by RESOURCE, ANESTHESIA-IRIS at [facility] ??? PET SCAN (SCAN) 07/06/2012 PET SCAN performed by Anesthesia-Iris Resource at [facility] ??? PRO LARYNGOSCOPY, DIRCT, OP SCOP, EXC TUMR 12/12/2011 LARYNGOSCOPY, DIRECT, EXCISION OF TUMOR, CORD STRIPPING, MICRO performed by BECKY GANN at [facility] MAIN OR ??? 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 Lives near [facility] with , 13yo daughter, 2 horses, [...] reviewed with patient who agrees to proceed. [facility] Vascular Fellow, PGY7 [id number] documented in [...] Notes * Med Student Progress Note - Amari Reilly - 01/29/2019 8:00 AM EDT INPATIENT DAILY PROGRESS NOTE Patient Name: Sebastian Wyatt Patient Age: 63 y.o. Birthdate: 1955 Admit date: 01/28/2019 Attending Physician: No att. providers found ID: Sebastian Wyatt is a 63 y.o. male with h/o HTN, HLD, SCC of tongue, and a 5.7 cm asymptomatic infrarenal AAA POD1 s/p EVAR with Pitkin Excluder graft. Recent events/symptoms: - ONE: 0545 [...] AAA 1 Day Post-Op s/p EVAR with Pitkin Excluder graft. Absence of hematoma and clean [...] Outcome: Ongoing (Interventions Implemented as Appropriate) 01/29/19 0520 Coping/Psychosocial Plan Of Care Reviewed With patient [...] ADLs]: Arms reach Surveillance [continuous indirect monitoring]: Ta purposeful rounding, call santizo in reach Patient-specific fall prevention interventions for sensory deficits provided, if applicable: [X] Yes, environmental modifications, lights adjusted to task, non- skid socks CPG GOAL OUTCOME EVALUATION: Ongoing Goal: Fall Prevention-Safe Patient Handling Outcome: Ongoing (Interventions Implemented as Appropriate) 01/28/19 16201/28/19194401/29/19 0400 Zuñiga Fall Risk History of Falling [...] Control Outcome: Ongoing (Interventions Implemented as Appropriate) 01/28/19194401/28/19 2200 Safety Interventions Isolation Precautions -- standard precautions [...] Arellano MD - 01/28/2019 11:01 AM EDT [facility] Operative Note Patient Name: Sebastian Wyatt : [id number] MR#: [id number] Case Date: 01/28/2019 Surgeon: Surgeon(s) and Role: * Brandon Gregorio MD - Primary * Sunita Arellano MD - Fellow Preoperative diagnosis: asymptomatic infrarenal AAA Postoperative diagnosis: asymptomatic infrarenal AAA Procedure: endovascular repair of abdominal aortic aneurysm (Pitkin Excluder), bilateral percutaneousfemoral artery access Findings: Anatomy consistent with pre-operative imaging. Bilateral percutaneous femoral arterial access (16Fr left, 12Fr right).??Successful repair of infrarenal abdominal aortic aneurysm with Pitkin Excluder bifurcated device, main body via left side (26x14.2r168jo), contralateral right limb (14.0i107cw) and ipsilateral iliac extension (14.7x70mm). All devices [...] arteries.Next, the main body of the device (Pitkin Excluder C3 26x14.5h151da) was advanced over the Amplatz tothe level of the renals. Arteriography was performed and the renal arteries were marked. The Dryseal sheath was backed out to uncover the Pitkin Excluder which was then partially deployed until [...] Dryseal sheath. We advanced the contralateral limb (14.1y081ud) from the right and positioned with adequate [...] AM EDT Office Visit Radiation Oncology at [address] [address] Jesse Mcmahan MD [facility] [place] [address] Scheduled Orders Name Type Priority Associated Diagnoses [...] AM EDT AAA @EVG, AORTA/ILIAC ART RPR [id number] ENDOGRAFT; ANEURX (WRVU 29.58) Yes 01/28/2019 8:26 [...] 01/28/2019 7:21 AM EDT TYPE AND SCREEN (MC/CGP/KELVIN) STAT 01/28/2019 7:21 AM EDT BASIC METABOLIC PANEL STAT 01/28/2019 7:21 AM EDT EVG, AORTA/ILIAC ART RPR [id number] ENDOGRAFT; ANEURX Routine 01/28/2019 6:52 AM EDT [...] below. ? Electronically signed by: Bernardino Roberts [facility] ([phone]), at 03/04/2019 2:37 PM Narrative 03/04/2019 2:37 [...] aortic aneurysm with bifurcated aortoiliac stent graft. [place] sac now measures 58 x 50 mm in maximum dimension on centerline reformatted images (in the axial plane it measures 55 x 59 mm). On the arterial phase images a small blush of enhancement is seen external to the endograft in the little traverse aneurysm sac in the location of the [...] contact the number below. Brandon Gregorio MD [facility] CT ORDERABLES * SCAN DOC: IMPLANTABLE DEVICES (01/31/2019 12:00 AM EDT) Narrative 01/31/2019 12:00 AM EDT Ordered by an unspecified provider. Scanning Provider MEDIA MGR SCAN EXT O RDR/RSLT * (ABNORMAL) Differential, Automated (01/29/2019 6:45 AM EDT) Neutrophil % 79.7 % [facility] Neutrophil Absolute 10.34(H) 1.70 - 6.10 x10(3)/ L [facility] Lymph % 11.3 % [facility] Lymphocytes Abs 1.5 0.9 - 3.2 x10(3)/ L [facility] Monocyte % 7.2 % [facility] Monocyte Abs 0.9 0.3 - 0.9 x10(3)/[facility] Eos % 0.3 % [facility] Eosinophils Abs 0.0 0.0 - 0.4 x10(3)/[facility] Basophil % 0.4 % [facility] Baso Absolute 0.0 0.0 - 0.1 x10(3)/[facility] Immature Gran % 1.10 % [facility] Comment: Immature granulocytes(IG's)percentage and absolute count will include metamyelocytes, myelocytes, and promyelocytes. Blood smears from CBCs yielding IG's will be scanned manually for concordance. If this scan disagrees with the automated IG or if promyelocytes are noted, a manual differential will be performed. Immature Gran Absolute 0.14(H) 0.00 - 0.04 x10(3)/ L [facility] Blood specimen (specimen) 01/29/2019 6:45 AM EDT 01/29/2019 7:04 AM EDT Narrative Resulting Agency Comment Spec In Lab Ysabel Santana MD HEMATOLOGY ORDERABL ES [facility] [place] [address] * (ABNORMAL) Hemogram (01/29/2019 6:45 AM EDT) White Blood Cell 13.0(H) 4.0 - 9.5 x10(3)/[facility] Red Blood Cell 6.14(H) 4.58 - 5.54 x10(6)/ L [facility] Hemoglobin 12.5(L) 13.7 - 16.5 gm/dL [facility] Hematocrit 40.2(L) 40.5 - 48.5 % [facility] Mean Cell Volume 65.5(L) 82.9 - 93.1 fL [facility] Mean Cell Hemoglobin 20.4(L) 27.5 - 32.1 pg [facility] Mean Cell Hemoglobin Concentration 31.1(L) 32.0 - 35.7 gm/dL [facility] Platelet 205 145 - 357 x10(3)/[facility] RDW Standard Deviation 33.8(L) 36.0 - 45.0 [facility] RDW coefficient of variation 15.9(H) 11.4 - 13.8 % [facility] Mean Platelet Volume 10.4 7.6 - 12.9 fL [facility] NRBC% auto 0.0 % [facility] NRBC Absolute 0.000 0.000 - 0.000 x10(3)/[facility] Blood specimen (specimen) 01/29/2019 6:45 AM EDT 01/29/2019 7:04 AM EDT Narrative Resulting Agency Comment Spec In Lab Ysabel Santana MD HEMATOLOGY ORDERABL ES [facility] [place] [address] * Basic Metabolic Panel (non-fasting) (01/29/2019 6:45 AM EDT) Glucose 115 65 - 199 mg/dL [facility] Comment:Diabetes: >=200 mg/d L plus symptoms Blood Urea Nitrogen 14 10 - 20 mg/dL [facility] Creatinine 0.96 0.80 - 1.50 mg/dL [facility] Sodium 141 135 - 145 mmol/L [facility] Potassium 3.8 3.5 - 5.0 mmol/L [facility] Comment: Please note: ??Patients with WBC >100,000 may have falsely elevated Potassium levels. ??For accurate Potassium quantification in these patients send serum separator tube (gold top) for subsequent determinations. ??Contact the Clinical Chemistry Laboratory if there are any questions. Chloride 104 98 - 107 mmol/L [facility] Carbon Dioxide 24 22 - 31 mmol/L [facility] Anion Gap 13 5 - 15 mmol/L [facility] Calcium 9.5 8.5 - 10.5 mg/dL [facility] Est Glomerular Filtration Rate 84 >=60 mL/min/1. 73 m?? [facility] Comment: The eGFR was calculated using the CKD-EPI equation. As with all creatinine based estimates of kidney function, eGFR values calculated with the CKD-EPI equation are not accurate in patients with acute kidney failure, extremes of body mass or the acutely ill. http://[employer]/[facility] eGFR 98 >=60 mL/min/1. 73 m?? [facility] Comment: The eGFR was calculated using the CKD-EPI equation. As with all creatinine based estimates of kidney function, eGFR values calculated with the CKD-EPI equation are not accurate in patients with acute kidney failure, extremes of body mass or the acutely ill. [email or web address]/[facility]nkf Blood specimen (specimen) 01/29/2019 6:45 AM EDT 01/29/2019 7:04 AM EDT Narrative Resulting Agency Comment Spec In Lab Brandon Gregorio MD CHEMISTRY ORDERABLES [facility] [address] * (ABNORMAL) Differential, Automated (01/28/2019 3:25 PM EDT) Neutrophil % 90.3 % [facility] Neutrophil Absolute 9.90(H) 1.70 - 6.10 x10(3)/ L [facility] Lymph % 4.7 % [facility] Lymphocytes Abs 0.5(L) 0.9 - 3.2 x10(3)/ L [facility] Monocyte % 2.8 % [facility] Monocyte Abs 0.3 0.3 - 0.9 x10(3)/ L [facility] Eos % 0.1 % [facility] Eosinophils Abs 0.0 0.0 - 0.4 x10(3)/[facility] Basophil % 0.5 % [facility] Baso Absolute 0.0 0.0 - 0.1 x10(3)/[facility] Immature Gran % 1.60 % [facility] Comment: Immature granulocytes(IG's)percentage and absolute count will include metamyelocytes, myelocytes, and promyelocytes. Blood smears from CBCs yielding IG's will be scanned manually for concordance. If this scan disagrees with the automated IG or if promyelocytes are noted, a manual differential will be performed. Immature Gran Absolute 0.18(H) 0.00 - 0.04 x10(3)/ L [facility] Blood specimen (specimen) 01/28/2019 3:25 PM EDT 01/28/2019 3:52 PM EDT Narrative Resulting Agency Comment Spec In Lab Sunita Arellano MD HEMATOLOGY O RDERABLES [facility] [place] [address] * (ABNORMAL) Hemogram (01/28/2019 3:25 PM EDT) White Blood Cell 11.0(H) 4.0 - 9.5 x10(3)/ L [facility] Red Blood Cell 5.85(H) 4.58 - 5.54 x10(6)/mc L [facility] Hemoglobin 11.8(L) 13.7 - 16.5 gm/dL [facility] Hematocrit 38.5(L) 40.5 - 48.5 % [facility] Mean Cell Volume 65.8(L) 82.9 - 93.1 fL [facility] Mean Cell Hemoglobin 20.2(L) 27.5 - 32.1 pg [facility] Mean Cell Hemoglobin Concentration 30.6(L) 32.0 - 35.7 gm/dL [facility] Platelet 194 145 - 357 x10(3)/mc L [facility] RDW Standard Deviation 34.1(L) 36.0 - 45.0 [facility] RDW coefficient of variation 14.8(H) 11.4 - 13.8 % [facility] Mean Platelet Volume 9.5 7.6 - 12.9 [facility] NRBC% auto 0.0 % [facility] NRBC Absolute 0.000 0.000 - 0.000 x10(3)/mc L [facility] Blood specimen (specimen) 01/28/2019 3:25 PM EDT 01/28/2019 3:52 PM EDT Narrative Resulting Agency Comment Spec In Lab Sunita Arellano MD HEMATOLOGY O RDERABLES [facility] [address] * (ABNORMAL) Differential, Automated (01/28/2019 11:25 AM EDT) Neutrophil % 73.4 % [facility] Neutrophil Absolute 5.87 1.70 - 6.10 x10(3)/mc L [facility] Lymph % 17.9 % [facility] Lymphocytes Abs 1.4 0.9 - 3.2 x10(3)/mc L [facility] Monocyte % 4.0 % [facility] Monocyte Abs 0.3 0.3 - 0.9 x10(3)/[facility] Eos % 1.1 % [facility] Eosinophils Abs 0.1 0.0 - 0.4 x10(3)/[facility] Basophil % 1.0 % [facility] Baso Absolute 0.1 0.0 - 0.1 x10(3)/[facility] Immature Gran % 2.60 % [facility] Comment: Immature granulocytes(IG's)percentage and absolute count will include metamyelocytes, myelocytes, and promyelocytes. Blood smears from CBCs yielding IG's will be scanned manually for concordance. If this scan disagrees with the automated IG or if promyelocytes are noted, a manual differential will be performed. Immature Gran Absolute 0.21(H) 0.00 - 0.04 x10(3)/[facility] Blood specimen (specimen) 01/28/2019 11:25 AM EDT 01/28/2019 12:00 PM EDT Narrative Resulting Agency Comment Spec In Lab Sunita Arellano MD HEMATOLOGY O RDERABLES Performing Organization Address City/State/[facility] Co de Phone Number [facility] [address] * (ABNORMAL) Hemogram (01/28/2019 11:25 AM EDT) White Blood Cell 8.0 4.0 - 9.5 x10(3)/[facility] Red Blood Cell 5.76(H) 4.58 - 5.54 x10(6)/[facility] Hemoglobin 11.5(L) 13.7 - 16.5 gm/dL [facility] Hematocrit 38.6(L) 40.5 - 48.5 % [facility] Mean Cell Volume 67.0(L) 82.9 - 93.1 fL [facility] Mean Cell Hemoglobin 20.0(L) 27.5 - 32.1 pg [facility] Mean Cell Hemoglobin Concentration 29.8(L) 32.0 - 35.7 gm/dL [facility] Platelet 190 145 - 357 x10(3)/mc L [facility] RDW Standard Deviation 34.6(L) 36.0 - 45.0 fL [facility] RDW coefficient of variation 14.9(H) 11.4 - 13.8 % [facility] Mean Platelet Volume 10.4 7.6 - 12.9 fL [facility] NRBC% auto 0.0 % [facility] NRBC Absolute 0.000 0.000 - 0.000 x10(3)/mc L [facility] Blood specimen (specimen) 01/28/2019 11:25 AM EDT 01/28/2019 12:00 PM EDT Narrative Resulting Agency Comment Spec In Lab Sunita Arellano MD HEMATOLOGY O RDERABLES [facility] [place] [address] * Basic Metabolic Panel (non-fasting) (01/28/2019 11:25 AM EDT) Glucose 183 65 - 199 mg/dL [facility] Comment:Diabetes: >=200 mg/d L plus symptoms Blood Urea Nitrogen 16 10 - 20 mg/dL [facility] Creatinine 0.89 0.80 - 1.50 mg/dL [facility] Sodium 140 135 - 145 mmol/L [facility] Potassium 4.5 3.5 - 5.0 mmol/L [facility] Comment: Please note: ??Patients with WBC >100,000 may have falsely elevated Potassium levels. ??For accurate Potassium quantification in these patients send serum separator tube (gold top) for subsequent determinations. ??Contact the Clinical Chemistry Laboratory if there are any questions. Chloride 105 98 - 107 mmol/L [facility] Carbon Dioxide 24 22 - 31 mmol/L [facility] Anion Gap 11 5 - 15 mmol/L [facility] Calcium 8.7 8.5 - 10.5 mg/dL [facility] Est Glomerular Filtration Rate 92 >=60 mL/min/1. 73 m?? [facility] Comment: The eGFR was calculated using the CKD-EPI equation. As with all creatinine based estimates of kidney function, eGFR values calculated with the CKD-EPI equation are not accurate in patients with acute kidney failure, extremes of body mass or the acutely ill. http://[employer]/[facility] eGFR 106 >=60 mL/min/1. 73 m?? [facility] Comment: The eGFR was calculated using the CKD-EPI equation. As with all creatinine based estimates of kidney function, eGFR values calculated with the CKD-EPI equation are not accurate in patients with acute kidney failure, extremes of body mass or the acutely ill. http://[employer]/[facility]nk[facility] Blood specimen (specimen) 01/28/2019 11:25 AM EDT 01/28/2019 12:00 PM EDT Narrative Resulting Agency Comment Spec In Lab Brandon Gregorio MD CHEMISTRY ORDERABLES Performing Organization Address City/[facility] Co de Phone Number [facility] [address] * IR OR VASC Aniogram Image Storage Only (01/28/2019 11:05 AM EDT) Narrative [facility] - 01/28/2019 11:05 AM EDT This exam is auto-finalizing. It's purpose is for storage only. Brandon Gregorio MD [facility] FILM LIBRARY ORD ERABLES [place], [place] * (ABNORMAL) BLOOD GAS 2 ARTERIAL (01/28/2019 9:00 AM EDT) pH, Arterial 7.39 7.35 - 7.45 [facility] PCO2, Arterial 38 35 - 45 mmHg [facility] PO2, Arterial 204(H) 85 - 104 mmHg [facility] Bicarbonate, Arterial 23.0 20.0 - 26.0 mmol/L [facility] Base Excess, Arterial -2.5 -3.0 - 3.0 mmol/L [facility] Hgb Blood Gas 12.6(L) 13.7 - 16.5 gm/dL [facility] Oxyhemoglobin, Arterial 98.3(H) 94.0 - 97.0 % [facility] Carboxyhemoglob in, Arterial 0.7 % [facility] Comment: Nonsmokers: 0.5-1.5% COHB Smokers: Variable, but usually less than 10% Toxic: 20-30% COHB Lethal: Greater than 60% COHB Methemoglobin, Arterial 0.3 <=1.5 % [facility] Na Whole Blood 136 135 - 145 mmol/L [facility] K Whole Blood 3.8 3.5 - 5.0 mmol/L [facility] Comment: Please note: Patients with WBC >100,000 may have falsely elevated Potassium levels. Contact the Clinical Chemistry Laboratory if there are any questions. ICa Whole Blood 1.18 1.15 - 1.33 mmol/L [facility] Comment: Note: ??Total bilirubin higher than 20 mg/dL may lead to falsely low ionized calcium. CL Whole Blood 103 98 - 107 mmol/L [facility] Gluc Whole Bld 126 65 - 199 mg/dL [facility] Comment:Diabetes: >=200 mg/d L plus symptoms. Lactate WB 2.8(H) 0.5 - 2.2 mmol/L [facility] FIO2 Art 59 % [facility] PF Ratio Art 346 [facility] Temp Art 34.8 Celsius [facility] Blood specimen (specimen) 01/28/2019 9:00 AM EDT 01/28/2019 9:00 AM EDT Brandon Gregorio MD POINT OF CARE TEST O RDERABLES Performing Organization Address City/[facility]/ZIP Co de Phone Number [facility] [address] * Scan, Peripheral Blood (01/28/2019 7:21 AM EDT) Plat estimate Normal [facility] RBC Morphology Abnormal [facility] Microcyte 6-10 /HPF [facility] Ovalocytes 1-5 /HPF [facility] Tear Cell 1-5 /HPF [facility] Plat, Giant Less than 1 /HPF [facility] Blood specimen (specimen) 01/28/2019 7:21 AM EDT 01/28/2019 7:28 AM EDT Narrative Resulting Agency Comment Spec In Lab Sunita Arellano MD HEMATOLOGY O RDERABLES Performing Organization Address City/[facility]/ZIP Co de Phone Number [facility] [address] * ABORH Recheck Status (01/28/2019 7:21 AM EDT) ABORH Recheck Order Order Placed [facility] ABORH Type Recheck Complete [facility] Blood specimen (specimen) 01/28/2019 7:21 AM EDT 01/28/2019 7:27 AM EDT Narrative Resulting Agency Comment Spec In Lab Sunita Arellano MD BLOOD BANK L AB ORDERABLES Performing Organization Address City/[facility]/ZIP Co de Phone Number [facility] [address] * Antibody screen (01/28/2019 7:21 AM EDT) Ab Screen Interp Negative [facility] Expires at [id number] on: 01/31/2019 [facility] Blood specimen (specimen) 01/28/2019 7:21 AM EDT 01/28/2019 7:27 AM EDT Narrative Resulting Agency Comment Spec In Lab Sunita Arellano MD BLOOD BANK L AB ORDERABLES Performing Organization Address City/[facility]/ZIP Co de Phone Number [facility] [address] * ABO/Rh Typing (01/28/2019 7:21 AM EDT) ABORH Type O Pos [facility] Blood specimen (specimen) 01/28/2019 7:21 AM EDT 01/28/2019 7:27 AM EDT Narrative Resulting Agency Comment Spec In Lab Sunita Arellano MD BLOOD BANK L AB ORDERABLES Performing Organization Address City/[facility] Co de Phone Number [facility] [place] [address] * (ABNORMAL) Differential, Automated (01/28/2019 7:21 AM EDT) Neutrophil % 68.6 % [facility] Neutrophil Absolute 6.80(H) 1.70 - 6.10 x10(3)/mc L [facility] Lymph % 18.6 % [facility] Lymphocytes Abs 1.8 0.9 - 3.2 x10(3)/mc L [facility] Monocyte % 7.9 % [facility] Monocyte Abs 0.8 0.3 - 0.9 x10(3)/mc L [facility] Eos % 1.7 % [facility] Eosinophils Abs 0.2 0.0 - 0.4 x10(3)/mc L [facility] Basophil % 1.3 % [facility] Baso Absolute 0.1 0.0 - 0.1 x10(3)/mc L [facility] Immature Gran % 1.90 % [facility] Comment: Immature granulocytes(IG's)percentage and absolute count will include metamyelocytes, myelocytes, and promyelocytes. Blood smears from CBCs yielding IG's will be scanned manually for concordance. If this scan disagrees with the automated IG or if promyelocytes are noted, a manual differential will be performed. Immature Gran Absolute 0.19(H) 0.00 - 0.04 x10(3)/mc L [facility] Blood specimen (specimen) 01/28/2019 7:21 AM EDT 01/28/2019 7:28 AM EDT Narrative Resulting Agency Comment Spec In Lab Sunita Arellano MD HEMATOLOGY O RDERABLES [facility] [place] [address] * (ABNORMAL) Hemogram (01/28/2019 7:21 AM EDT) White Blood Cell 9.9(H) 4.0 - 9.5 x10(3)/mc L [facility] Red Blood Cell 6.33(H) 4.58 - 5.54 x10(6)/mc L [facility] Hemoglobin 12.8(L) 13.7 - 16.5 gm/dL [facility] Hematocrit 42.6 40.5 - 48.5 % [facility] Mean Cell Volume 67.3(L) 82.9 - 93.1 fL [facility] Mean Cell Hemoglobin 20.2(L) 27.5 - 32.1 pg [facility] Mean Cell Hemoglobin Concentration 30.0(L) 32.0 - 35.7 gm/dL [facility] Platelet 227 145 - 357 x10(3)/mc L [facility] RDW Standard Deviation 34.1(L) 36.0 - 45.0 fL [facility] RDW coefficient of variation 15.5(H) 11.4 - 13.8 % [facility] Mean Platelet Volume 10.2 7.6 - 12.9 fL [facility] NRBC% auto 0.0 % [facility] NRBC Absolute 0.000 0.000 - 0.000 x10(3)/mc L [facility] Blood specimen (specimen) 01/28/2019 7:21 AM EDT 01/28/2019 7:28 AM EDT Narrative Resulting Agency Comment Spec In Lab Sunita Arellano MD HEMATOLOGY O RDERABLES [facility] [place] [address] * Basic Metabolic Panel (non-fasting) (01/28/2019 7:21 AM EDT) Glucose 112 65 - 199 mg/dL [facility] Comment:Diabetes: >=200 mg/d L plus symptoms Blood Urea Nitrogen 19 10 - 20 mg/dL [facility] Creatinine 1.08 0.80 - 1.50 mg/dL [facility] Sodium 140 135 - 145 mmol/L [facility] Potassium 4.7 3.5 - 5.0 mmol/L [facility] Comment: Please note: ??Patients with WBC >100,000 may have falsely elevated Potassium levels. ??For accurate Potassium quantification in these patients send serum separator tube (gold top) for subsequent determinations. ??Contact the Clinical Chemistry Laboratory if there are any questions. Chloride 103 98 - 107 mmol/L [facility] Carbon Dioxide 27 22 - 31 mmol/L [facility] Anion Gap 10 5 - 15 mmol/L [facility] Calcium 9.5 8.5 - 10.5 mg/dL [facility] Est Glomerular Filtration Rate 73 >=60 mL/min/1. 73 m?? [facility] Comment: The eGFR was calculated using the CKD-EPI equation. As with all creatinine based estimates of kidney function, eGFR values calculated with the CKD-EPI equation are not accurate in patients with acute kidney failure, extremes of body mass or the acutely ill. http://[employer]/DHMCnkf eGFR 85 >=60 mL/min/1. 73 m?? [facility] Comment: The eGFR was calculated using the CKD-EPI equation. As with all creatinine based estimates of kidney function, eGFR values calculated with the CKD-EPI equation are not accurate in patients with acute kidney failure, extremes of body mass or the acutely ill. [email or web address]/DHnkf Blood specimen (specimen) 01/28/2019 7:21 AM EDT 01/28/2019 7:28 AM EDT Narrative Resulting Agency Comment Spec In Lab Brandon Gregorio MD CHEMISTRY ORDERABLES [facility] [place] [phone] documented in this encounter Visit Diagnoses Not on filedocumented in this encounter Administered Medications Inactive Administered Medications - up to 3 most recent administrations Medication Order MAR Action Action Date Dose Rate Site acetaminophen (TYLENOL) tablet 650 mg 650 mg, Oral, EVERY 6 HOURS PRN, Starting on Thu01/28/19 at 1154, Until Thu01/29/19 at 1448, Pain, Fever, Administer for temperature [...] Given 01/29/2019 8:08 AM EDT 5 mg docusate sodium (COLACE) capsule 100 mg 100 mg, Oral, 2 TIMES DAILY, First dose on Thu01/28/19 at 2100, Until Discontinued, Routine Given 01/29/2019 8:12 AM EDT 100 mg Given 01/28/2019 8:04 PM EDT 100 mg folic acid (FOLVITE) tablet 5,000 mcg 5,000 mcg (5 mg), Oral, DAILY, First dose on Sat 19 at 0900, Until Discontinued, Routine Given 01/29/2019 [...] Given 01/28/2019 12:33 PM EDT 10 mg levothyroxine (SYNTHROID) tablet 175 mcg 175 mcg, [...] Given 01/28/2019 8:11 PM EDT 5 mLs tamsulosin (FLOMAX) ER capsule 0.4 mg 0.4 [...] on Thu01/28/19 at 1215, Last dose on 01/29/19 at 0415, Administer over 30 Minutes, Indication for (Active or Suspected): Prophylaxis 1202 (New Bag - Provider: Alexandra Hernandez RN)1232 (Stopped - Provider: Alexandra Hernandez RN)2007 (New Bag - Provider: Ivis Meeks RN)2037 (Stopped - Provider: Ivis Meeks RN) 323 (New Bag - Provider: Ivis Meeks [...] on Thu01/29/19 at 0600, Until Discontinued, Routine 05 (Given - Provid er: Ivis Meeks RN) [...] Discontinued, Routine 2007 (Given - Provider: Ivis Meeks, PRASANTH) sodium chloride 0.9 % (flush) flush 5 mL 5 mL, Intravenous, 2 TIMES DAILY, First dose on Thu01/28/19 at 2100, Until Discontinued, Recovery (Recovery-Hospital Unit), Routine 2010 (Given - Provider: Ivis Meeks, PRASANTH) 0814 (Given - Provider: Sabina Sharma, PRASANTH) tamsulosin (FLOMAX) ER capsule 0.4 mg 0.4 [...] 0800 (New Bag - Provider: Do familia oGrdon RN)0826 (New Bag - Provider: Tyson Keenan MD)1038 (Anesthesia Volume Adjustment - Provider: Tyson Keenan MD)1202 (Stopped - Provider: Alexandra Hernandez RN) sodium chloride 0.9% infusion () 1,000 mL, at 100 mL/hr, Intravenous, CONTINUOUS, Starting on Thu01/28/19 at 1215, Until Thu01/28/19 at 1814, Recovery (Recovery-Hospital Unit) 1202 (New Bag - Provider: Clifford Hernandez, PRASANTH)1800 (Stopped - Provider: Ivis Meeks RN) PRN [...] Routine documented in this encounter Care Teams Enterprise Analyst Relationship Specialty Start Date End Date Bj Alves MD [address] [place] [phone] PCP - General 06/25/10 04/02/23 documented as of this encounter
--- OUTSIDE RECORDS SUMMARY | 2024-08-01 15:27 | XMS_ITS | Encounter Summary ---
Author Organization Formerly [facility] [place] [address] Care Team Providers Care Presentation Manager Name Role Phone Bj Alves MD Primary Care Provider Encounter Details Date Type Department Care Team (Late Contact Info) Description 06/28/2018 [place] [phone] Brianda Huynh Social History Tobacco Use Types [...] * Telephone Encounter - Brianda Huynh - 06/28/2018 2:44 PM EST Left message to schedule follow up appointment BOTOX w/JULIETA first available. documented in this encounter Plan of Treatment Upcoming Encounters Date Type Department Care Team (Late Contact Info) Description 05/24/2025 11:00 AM EDT Office Visit Radiation Oncology at [address] [phone] Jesse Mcmahan MD [facility] DR [place] [address] documented as of this encounter Visit Diagnoses Not on filedocumented in this encounter Care Teams Presentation Manager Relationship Specialty Start Date End Date Bj Alves MD [address] [place] [phone] PCP - General 06/25/10 04/02/23 documented as of this encounter
--- OUTSIDE RECORDS SUMMARY | 2024-08-01 15:27 | XMS_ITS | Encounter Summary ---
Author Organization [facility] [place] [address] Care Team Providers Care Bulb Filler Name Role Phone Bj Alves MD Primary Care Provider [phone] Encounter Details Date Type Department Care Team (Late Contact Info) Description 12/17/2018 Orders [place] [phone] Irene Iyer CMA AAA (abdominal aortic aneurysm) [...] EDT Office Visit Radiation Oncology at [address] [phone] Jesse Mcmahan MD [facility] [place] [address] documented as of this encounter Visit Diagnoses Diagnosis AAA (abdominal aortic aneurysm) without rupture Abdominal aneurysm without mention of rupture documented in this encounter Care Teams Bulb Filler Relationship Specialty Start Date End Date Bj Alves MD [address] [place] [phone] PCP - General 06/25/10 04/02/23 documented as of this encounter
--- OUTSIDE RECORDS SUMMARY | 2024-08-01 15:27 | XMS_ITS | Encounter Summary ---
[place] [address] Care Team Providers Care Manager Express Name Role Phone Bj Alves MD Primary Care Provider [phone] Reason for Referral * Diagnostic Test (Routine) - Closed Specialty Diagnoses / Procedures Referred By Contac t Referred To Contact Radiology Diagnoses AAA (abdominal aortic aneurysm) without rupture Procedures CT Angiogram Abdomen & Pelvis w Contrast (Generic) [facility] [address] [place] [phone] [facility] [place] [address] Referral ID Status Reason Start Date Expiration Date V isits Requested Visits Authorized [id number] Closed Specialty Service Requested 12/17/2018 03/17/2019 1 1 Reason for Visit * Diagnostic Test (Routine) - Closed Specialty Diagnoses / Procedures Referred By Contac t Referred To Contact Radiology Diagnoses AAA (abdominal aortic aneurysm) without rupture Procedures CT Angiogram Abdomen & Pelvis w Contrast (Generic) [facility] [address] [place] [phone] [facility] [place] [address] Referral ID Status Reason Start Date Expiration Date V isits Requested Visits Authorized [id number] Closed Specialty Service Requested 12/17/2018 03/17/2019 1 1 Encounter Details Date Type Department Care Team (Latest Contact Info) Description 12/21/2018 7:47 AM EDT - 12/21/2018 11:59 PM EDT Hospital [place] [phone] Aisha Roman MD [facility] [place] [address] AAA (abdominal aortic aneurysm) without rupture Discharge [...] other day. prn levothyroxine (Synthroid) 150 mcg tabletIndications:hypot hyroidism Take 150 mcg by mouth daily. Indications: hypothyroidism amlodipine-benazepril (LOTREL) 5-10 mg per capsule Take 1 capsule by mouth daily. documented as of this encounter Plan of Treatment Upcoming Encounters Date Type Department Care Team (Late st Contact Info) Description 05/24/2025 11:00 AM EDT Office Visit Radiation Oncology at [address] [phone] Jesse Mcmahan MD [facility] [place] [address] documented as of this encounter Procedures Procedure Name Priority Date/Time Associated Diagnosis Comments CT ANGIOGRAM ABDOMEN AND PELVIS W CONTRAST Routine 12/21/2018 8:06 AM EDT AAA (abdominal aortic aneurysm) without rupture documented in this encounter Results * CT Angiogram Abdomen & Pelvis w Contrast (Generic) (12/21/2018 8:06 AM EDT) Anatomical Region Laterality Modality Abdomen, Pelvis Computed Tomogra phy Impressions 12/21/2018 10:01 AM EDT Infrarenal abdominal aortic aneurysm. Thank you for letting us participate in the care of this patient. For questions regarding this report, please contact the number below. ? Narrative 12/21/2018 10:01 AM EDT EXAMINATION: CT ANGIOGRAM ABDOMEN AND PELVIS W CONTRAST (GENERIC) CLINICAL HISTORY: AAA TECHNIQUE: Helical CT angiogram of the abdomen and pelvis was performed following intravenous administration of contrast. Administered 70.0 ml of OMNIPAQUE 350.00 mg/ml. MPRs were performed. Multiplanar images were reviewed and 3-D images were generated on an independent workstation. COMPARISON: None FINDINGS: VASCULAR FINDINGS Abdominal aorta: A 5.2 x 5.5 cm infrarenal abdominal aortic aneurysm is noted, as measured from center line reformatted images. Celiac: Widely patent. SMA: Widely patent. Right renal artery: Widely patent. Left renal artery: Widely patent. CHAU: Widely patent. Right: Common iliac [...] patent. NON-VASCULAR FINDINGS Lower chest: Normal. Liver: Normal. Bile ducts: Nondilated. Gallbladder: No calcified gallstones. Normal caliber wall. Pancreas: Normal attenuation without ductal dilatation. Spleen: Normal. Kidneys/adrenals: Normal. Urinary Bladder: Normal. Lymph Nodes: No enlarged lymph nodes. Bowel: Nondilated, no wall thickening. ?? Peritoneum and mesentery: No ascites, free air, or loculated fluid collection. No mesenteric inflammation. Osseous structures: No suspicious findings. Procedure Note Bernardino Roberts MD - 12/21/2018 EXAMINATION: CT ANGIOGRAM ABDOMEN AND PELVIS W CONTRAST (GENERIC) CLINICAL HISTORY: AAA TECHNIQUE: Helical CT angiogram of the abdomen and pelvis was performed following intravenous administration of contrast. Administered 70.0 mlof OMNIPAQUE 350.00 mg/ml. MPRs were performed. Multiplanar images werereviewed and 3-D images were generated on an independent workstation. COMPARISON: None FINDINGS: VASCULAR FINDINGS Abdominal aorta: A 5.2 x 5.5 cm infrarenal abdominal aortic aneurysm isnoted, as measured from center line reformatted images. Celiac: Widely patent. SMA: Widely patent. Right renal artery: Widely patent. Left renal artery: Widely patent. CHAU: Widely patent. Right: Common iliac [...] patent. NON-VASCULAR FINDINGS Lower chest: Normal. Liver: Normal. Bile ducts: Nondilated. Gallbladder: No calcified gallstones. Normal caliber wall. Pancreas: Normal attenuation without ductal dilatation. Spleen: Normal. Kidneys/adrenals: Normal. Urinary Bladder: Normal. Lymph Nodes: No enlarged lymph nodes. Bowel: Nondilated, no wall thickening. Peritoneum and mesentery: No ascites, free air, or loculated fluidcollection. No mesenteric inflammation. Osseous structures: No suspicious findings. IMPRESSION Infrarenal abdominal aortic aneurysm. Thank you for letting us participate in the care of this patient. Forquestions regarding this report, please contact the number below. Aisha Roman MD IMG CT ORDERABL ES documented in this encounter Visit Diagnoses Diagnosis AAA (abdominal aortic aneurysm) without rupture Abdominal aneurysm without mention of rupture documented in this encounter Administered Medications Inactive Administered Medications - up to 3 most recent administrations Medication Order MAR Action Action Date Dose Rate Site iohexol (OMNIPAQUE) 350 mg/mL solution 0-200 mL 0-200 mL, Intravenous, ONCE PRN, 1 dose, Starting on Thu12/21/18 at 0807, Until Thu12/21/18 at 0807, Per Protocol, Warning Vesicant/Irritant Medication , Radiology Contrast, Routine Given 12/21/2018 8:07 AM EDT 70 mLs documented in this encounter Care Teams Manager Express Relationship Specialty Start Date End Date Bj Alves MD [address] [place] [phone] PCP - General 06/25/10 04/02/23 documented as of this encounter
--- OUTSIDE RECORDS SUMMARY | 2024-08-01 15:27 | XMS_ITS | Encounter Summary ---
Author Organization [facility] [place] [address] Care Team Providers Care Student Support Advisor Name Role Phone Bj Alves MD Primary Care Provider [phone] Encounter Details Date Type Department Care Team (Late Contact Info) Description 12/17/2018 Orders [place] [address] Salud Ayers Social History Tobacco Use Types Packs/Day Years [...] EDT Office Visit Radiation Oncology at [address] [phone] [facility] [place] [address] documented as of this encounter Visit Diagnoses Not on filedocumented in this encounter Care Teams Student Support Advisor Relationship Specialty Start Date End Date Bj Alves MD [address] [place] [phone] PCP - General 06/25/10 04/02/23 documented as of this encounter
--- OUTSIDE RECORDS SUMMARY | 2024-08-01 15:27 | XMS_ITS | Encounter Summary ---
Author Organization [facility] [address] Care Team Providers Care High School Biology Teacher Name Role Phone Bj Alves MD Primary Care Provider [phone] Reason for Visit * Consultation (Routine) - Specialty Diagnoses / Procedures Referred By Sheila t Referred To Contact Vascular Surgery Diagnoses AAA Procedures AAA Bj Alves MD [address] [place] [phone] [facility] [address] [place] [address] Referral ID Status Reason Start Date Expiration Date V isits Requested Visits Authorized [id number] Consult, Test & Treat 12/13/2018 12/13/2019 2 2 Encounter Details Date Type Department Care Team (Late st Contact Info) Description 12/21/2018 11:45 AM EDT Office [place] [phone] Brandon Gregorio MD [facility] [place] [address] AAA (abdominal aortic aneurysm) without rupture Social [...] Sign Reading Time Taken Comments Blood Pressure 120/66 12/21/2018 11:44 AM EDT Pulse 69 12/21/2018 11:44 AM EDT Temperature - - Respiratory Rate - - Oxygen Saturation - - Inhaled Oxygen Concentration - - Weight 102.1 kg (225 lb) 12/21/2018 11:44 AM EDT reported Height 175.3 cm (5' 9) 12/21/2018 11:44 AM EDT reported Body Mass Index 33.23 12/21/2018 11:44 AM EDT documented in this encounter Progress Notes * Marion Henry - 12/21/2018 11:45 AM EDT Sebastian Wyatt is a 63 y.o. male with hx of AAA and squamous cell carcinoma, presenting to clinic today for f/u CTA abdomen/pelvis to assess degree of aneurysmal degeneration. Denies any abdominal pain, SOB, CP, n/v. Patient Active Problem List Diagnosis Code ??? Cancer of base of tongue C01 ??? Obesity E66.9 ??? Hyperlipidemia E78.5 ??? Hypertension I10 ??? Glucose intolerance (impaired glucose tolerance) R73.02 ??? Hypothyroidism E03.9 ??? GERD (gastroesophageal reflux disease) K21.9 ??? Psoriasis L40.9 ??? Sleep apnea G47.30 ??? Anxiety F41.9 ??? Back pain, chronic M54.9, G89.29 ??? Thalassemia minor ??? Claustrophobia F40.240 ??? 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 DIFFICULT AIRWAY T88.4XXA ??? Dysphagia, unspecified(787.20) R13.10 ??? 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 AAA (abdominal aortic aneurysm) without rupture I71.4 Current Outpatient Medications on File Prior to Visit Medication Sig Dispense Refill ??? metoprolol succinate (TOPROL-XL) 25 mg Tablet Sustained Release 24 hr Take 25 mg by mouth daily. ??? rosuvastatin (CRESTOR) 10 mg Tablet Take 10 mg by mouth daily. ??? tamsulosin (FLOMAX) 0.4 mg Capsule, Sust. Release 24 hr Take 0.4 mg by mouth daily. ??? betamethasone dipropionate (DIPROLENE) 0.05 % Ointment Apply topically 2 times daily. ??? celecoxib (CELEBREX) 100 mg capsule Take 100 mg by mouth daily as needed. ??? levothyroxine (SYNTHROID) 100 mcg tablet Take 175 mcg by mouth daily. Indications: Hypothyroidism ??? amlodipine-benazepril (LOTREL) 5-10 mg per capsule Take 1 capsule by mouth daily. ??? [DISCONTINUED] LORazepam (ATIVAN) 1 mg Tablet Take 1 mg by mouth every 6 hours as needed (insomnia). ??? [DISCONTINUED] aspirin 81 mg Tablet, Delayed Release (E.C.) Take 81 mg by mouth daily. ??? [DISCONTINUED] apremilast (OTEZLA ORAL) Take by mouth 2 times daily. ??? [DISCONTINUED] Calcitriol 3 mcg/gram Ointment Apply 1 Film topically 2 times daily. No current facility-administered medications on file prior to visit. Review of Systems Constitutional: Negative for fever and chills. Respiratory: Negative for cough, shortness of breath and chest discomfort. Genitourinary: Negative for urge incontinence. Gastrointestinal: Negative for abdominal discomfort, vomiting and nausea. HENT: Negative for sinus pressure. Hematologic/Lymphatic: Negative for adenopathy. Allergic/Immunologic: Negative. Musculoskeletal: Negative for joint pain. Endocrine: Negative for polydipsia. Cardiovascular: Negative for palpitations. Neurological: Negative for headaches. Skin: Negative for raised rash. Vitals: BP 120/66 (BP Location (NBP): Left arm, Patient Position: Sitting, BP Cuff Sizes: Adult (25-34 cm)) Pulse 69 Ht 175.3 cm (5' 9) Comment: reported Wt 102.1 kg (225 lb) Comment: reported BMI 33.23 kg/m?? Physical Exam Constitutional: He is oriented to person, place, and time. He appears well- developed and well-nourished. No distress. HENT: Head: Normocephalic and atraumatic. Eyes: Pupils are equal, round, and reactive to light. Conjunctivae and EOM are normal. No scleral icterus. Neck: Normal range of motion. Cardiovascular: Normal rate and regular rhythm. Pulmonary/Chest: Effort normal. No respiratory distress. Abdominal: He exhibits no distension. There is no tenderness. Musculoskeletal: Normal range of motion. Neurological: He is alert and oriented to person, place, and time. No cranial nerve deficit. Skin: Skin is warm and dry. He is not diaphoretic. Psychiatric: He has a normal mood and affect. Imagin12/21/18 CTA Abdomen and Pelvis with Contrast VASCULAR FINDINGS Abdominal aorta: A 5.2 x 5.5 cm infrarenal abdominal aortic aneurysm is noted, as measured from center line reformatted images. Celiac: Widely patent. SMA: Widely patent. Right renal artery: Widely patent. Left renal artery: Widely patent. CHAU: Widely patent. Assessment and Plan: Sebastian Wyatt is a 63 y.o. male with hx of AAA and squamous cell carcinoma, presenting to clinic today for f/u CTA abdomen/pelvis to assess degree of aneurysmal degeneration. CTA today demonstrates a 5.2 x 5.5 cm infrarenal AAA, with anatomy agreeable for endovascular repair. Pt counseled as to risks and benefits of open vs endovascular surgical repair, and wishes to proceed with endovascular treatment. Will call patient to schedule procedure. Pt seen and discussed with Dr. Gregorio. Marion Henry, MS3 I interviewed and examined patient, reviewed CTA. Pt with known AAA. Now 5.7 cm. Discussed risks and benefits of open vs EVAR vs f/u. He would like to proceed with EVAR. documented in this encounter Plan of Treatment Upcoming Encounters Date Type Department Care Team (Late st Contact Info) Description 05/24/2025 11:00 AM EDT Office Visit Radiation Oncology at [address] [phone] Jesse Mcmahan MD [facility] [place] [address] documented as of this encounter Visit Diagnoses Diagnosis AAA (abdominal aortic aneurysm) without rupture Abdominal aneurysm without mention of rupture documented in this encounter Care Teams [employer] Biology Teacher Relationship Specialty Start Date End Date Bj Alves MD [address] [place] [phone] PCP - General 06/25/10 04/02/23 documented as of this encounter
--- OUTSIDE RECORDS SUMMARY | 2024-08-01 15:27 | XMS_ITS | Encounter Summary ---
Author Organization [facility] [place] [address] Care Team Providers Care Proposal Manager Writer Name Role Phone Bj Alves MD Primary Care Provider [phone] Encounter Details Date Type Department Care Team (Late Contact Info) Description 04/21/2019 Specialty [place] [phone] Vasyl Poole Social History Tobacco Use Types [...] EDT Office Visit Radiation Oncology at [address] [phone] Jesse Mcmahan MD [facility] [place] [address] documented as of this encounter Visit Diagnoses Not on filedocumented in this encounter Care Teams Proposal Manager Writer Relationship Specialty Start Date End Date Bj Alves MD [address] [place] [phone] PCP - General 06/25/10 04/02/23 documented as of this encounter
--- OUTSIDE RECORDS SUMMARY | 2024-08-01 15:27 | XMS_ITS | Encounter Summary ---
Author Organization [facility] [place] [address] Care Team Providers Care Button Machine Operator Name Role Phone Bj Alves MD Primary Care Provider [phone] Encounter Details Date Type Department Care Team (Late Contact Info) Description 02/07/2019 Telephone [place] [phone] Brianda Huynh Social History Tobacco Use Types [...] * Telephone Encounter - Brianda Huynh - 02/07/2019 12:41 PM EDT Left message to schedule Recall. documented in this encounter Plan of Treatment Upcoming Encounters Date Type Department Care Team (Late Contact Info) Description 05/24/2025 11:00 AM EDT Office Visit Radiation Oncology at [address] [phone] Jesse Mcmahan MD [facility] [place] [address] documented as of this encounter Visit Diagnoses Not on filedocumented in this encounter Care Teams Button Machine Operator Relationship Specialty Start Date End Date Bj Alves MD [address] [place] [phone] PCP - General 06/25/10 04/02/23 documented as of this encounter
--- OUTSIDE RECORDS SUMMARY | 2024-08-01 15:27 | XMS_ITS | Encounter Summary ---
Author Organization [facility] [place] [address] Care Team Providers Care Shaker Out Name Role Phone Bj Alves MD Primary Care Provider [phone] Encounter Details Date Type Department Care Team (Late Contact Info) Description 06/14/2018 Ancillary Procedure Radiology Library at [facility] [place] [address] Brandon Gregorio MD [facility] [place] [address] Social History Tobacco Use Types Packs/Day Years [...] EDT Office Visit Radiation Oncology at [address] [phone] Jesse Mcmahan MD [facility] [place] [address] documented as of this encounter Procedures Procedure Name Priority Date/Time Associated Diagnosis Comments FILM LIBRARY STORAGE ONLY ULTRASOUND STUDY Routine 06/14/2018 12:00 AM EST documented in this encounter Results * Film Library- Storage Only Ultrasound Study (06/14/2018 12:00 AM EST) Narrative TEJA - 12/13/2018 1:56 PM EDT This exam is auto-finalizing. It's purpose is for storage only. Brandon Gregorio MD IMG FILM LIBRARY ORD ERABLES [place], [place] documented in this encounter Visit Diagnoses Not on filedocumented in this encounter Care Teams Shaker Out Relationship Specialty Start Date End Date Bj Alves MD [address] [place] [phone] PCP - General 06/25/10 04/02/23 documented as of this encounter
--- OUTSIDE RECORDS SUMMARY | 2024-08-01 15:27 | XMS_ITS | Encounter Summary ---
Author Organization [facility] [place] [address] Care Team Providers Care Commissary Steward Name Role Phone Bj Alves MD Primary Care Provider [phone] Encounter Details Date Type Department Care Team (Late Contact Info) Description 12/13/2018 2:00 PM EDT Ancillary Procedure Radiology Library at [facility] [place] [address] Brandon Gregorio MD [facility] [place] [address] Social History Tobacco Use Types Packs/Day Years [...] EDT Office Visit Radiation Oncology at [address] [phone] Jesse Mcmahan MD [facility] [place] [address] documented as of this encounter Procedures Procedure Name Priority Date/Time Associated Diagnosis Comments FILM LIBRARY STORAGE ONLY ULTRASOUND STUDY Routine 12/13/2018 1:55 PM EDT documented in this encounter Results * Film Library- Storage Only Ultrasound Study (12/13/2018 1:55 PM EDT) Narrative DEXTER LEZAMA - 12/13/2018 1:55 PM EDT This exam is auto-finalizing. It's purpose is for storage only. Brandon Gregorio MD G FILM LIBRARY ORD ERABLES Performing Organization Address City/State/[facility] Co de Phone Number [place], [place] documented in this encounter Visit Diagnoses Not on filedocumented in this encounter Care Teams Commissary Steward Relationship Specialty Start Date End Date Bj Alves MD [address] [place] [phone] PCP - General 06/25/10 04/02/23 documented as of this encounter
--- OUTSIDE RECORDS SUMMARY | 2024-08-01 15:27 | XMS_ITS | Encounter Summary ---
[place] [address] Care Team Providers Care Take Away Man Name Role Phone Bj Alves MD Primary Care Provider [phone] Reason for Referral * Diagnostic Test (Routine) - Closed Specialty Diagnoses / Procedures Referred By Sheila colvin Referred To Contact Radiology Diagnoses AAA (abdominal aortic aneurysm) without rupture Procedures CT Angiogram Abdomen & Pelvis w Contrast (Generic) [facility] Surg [address] [place] [address] [facility] [place] [address] Referral ID Status Reason Start Date Expiration Date V isits Requested Visits Authorized [id number] Closed Specialty Service Requested 12/17/2018 03/17/2019 1 1 Encounter Details Date Type Department Care Team (Late st Contact Info) Description 12/14/2018 Orders [place] [address] Irene Iyer, SHELLFISH PROCESSING MACHINE TENDER AAA (abdominal aortic aneurysm) without rupture Social [...] EDT Office Visit Radiation Oncology at [address] [phone] Jesse Mcmahan MD [facility] [place] [address] documented as of this encounter Results * CT Angiogram Abdomen [...] number below. Electronically signed by: Bernardino Roberts [facility]([phone]), at 12/21/2018 10:01 AM Aisha Roman MD IMG CT ORDERABL ES documented in this encounter Visit Diagnoses Diagnosis AAA (abdominal aortic aneurysm) without rupture Abdominal aneurysm without mention of rupture AAA (abdominal aortic aneurysm) without rupture Abdominal aneurysm without mention of rupture documented in this encounter Care Teams Take Away Man Relationship Specialty Start Date End Date Bj Alves MD [address] [place] [phone] PCP - General 06/25/10 04/02/23 documented as of this encounter
--- OUTSIDE RECORDS SUMMARY | 2024-08-01 15:27 | XMS_ITS | Encounter Summary ---
Author Organization [facility] [place] john[place] [place] [address] Care Team Providers Care Pulp Plant Supervisor Name Role Phone Bj Alves MD Primary Care Provider [phone] Encounter Details Date Type Department Care Team (Late Contact Info) Description 01/28/2019 11:10 AM EDT Ancillary Procedure Radiology Library at [facility] [place] [address] Social History Tobacco Use Types Packs/Day Years [...] EDT Office Visit Radiation Oncology at [address] [phone] Jesse Mcmahan MD [facility] [place] [address] documented as of this encounter Procedures Procedure Name Priority Date/Time Associated Diagnosis Comments IR OR VASC ANGIOGRAM IMAGE STORAGE ONLY Routine 01/28/2019 11:05 AM EDT documented in this encounter Results * IR OR VASC Aniogram Image Storage Only (01/28/2019 11:05 AM EDT) Narrative DEXTER RAD - 01/28/2019 11:05 AM EDT This exam is auto-finalizing. It's purpose is for storage only. Brandon Gregoiro MD [facility] FILM LIBRARY ORD ERABLES TE[place], [place] documented in this encounter Visit Diagnoses Not on filedocumented in this encounter Care Teams Pulp Plant Supervisor Relationship Specialty Start Date End Date Bj Alves MD [address] [place] [phone] PCP - General 06/25/10 04/02/23 documented as of this encounter
--- OUTSIDE RECORDS SUMMARY | 2024-08-01 15:27 | XMS_ITS | Encounter Summary ---
[place] [address] Care Team Providers Care Bilingual Teacher Name Role Phone Bj Alves MD Primary Care Provider [phone] Reason for Visit * Reason Onset Date Comments Medication Refill 04/12/2019 Encounter Details Date Type Department Care Team (Late Contact Info) Description 04/12/2019 Ref[place] [phone] Trey David RN Social History Tobacco Use Types Packs/Day [...] Telephone Encounter - Trey David RN - 04/12/2019 10:38 AM EDT Has not been seen by [facility] Rheumatology yet. Can we give a 1 month supply until seen. Has appointment scheduled on 04/22/19. documented in this encounter Plan of Treatment Upcoming Encounters Date Type Department Care Team (Late st Contact Info) Description 05/24/2025 11:00 AM EDT Office Visit Radiation Oncology at [address] [phone] Jesse Mmcahan MD [facility] [place] [address] documented as of this encounter Visit Diagnoses Not on filedocumented in this encounter Care Teams Bilingual Teacher Relationship Specialty Start Date End Date Bj Alves MD [address] [place] [phone] PCP - General 06/25/10 04/02/23 documented as of this encounter
--- OUTSIDE RECORDS SUMMARY | 2024-08-01 15:27 | XMS_ITS | Encounter Summary ---
Author Organization [facility] [place] [address] Care Team Providers Care Presser And Shaper Knitted Goods Name Role Phone Bj Alves MD Primary Care Provider [phone] Encounter Details Date Type Department Care Team (Late Contact Info) Description 05/14/2020 Orders [place] [address] Jesse Mcmahan MD [facility] [place] [address] Cancer of base of tongue Social History [...] EDT Office Visit Radiation Oncology at [address] [phone] Jesse Mcmahan MD [facility] [place] [address] documented as of this encounter Visit Diagnoses Diagnosis 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
--- OUTSIDE RECORDS SUMMARY | 2024-08-01 15:27 | XMS_ITS | Encounter Summary ---
Author Organization [facility] [place] [address] Care Team Providers Care Snowsport Instructor Name Role Phone Bj Alves MD Primary Care Provider [phone] Encounter Details Date Type Department Care Team (Late Contact Info) Description 12/17/2018 Orders Only [place] [address] Salud Ayers Social History Tobacco Use Types [...] EDT Office Visit Radiation Oncology at [address] [phone] Jesse Mcmahan MD [facility] [place] [address] documented as of this encounter Visit Diagnoses Not on filedocumented in this encounter Care Teams Snowsport Instructor Relationship Specialty Start Date End Date Bj Alves MD [address] [place] [phone] PCP - General 06/25/10 04/02/23 documented as of this encounter
--- OUTSIDE RECORDS SUMMARY | 2024-08-01 15:27 | XMS_ITS | Encounter Summary ---
Author Organization [facility] [place] [address] Care Team Providers Care County Treasurer Name Role Phone Bj Alves MD Primary Care Provider [phone] Reason for Visit * Reason Onset Date Comments Other 12/24/2018 Encounter Details Date Type Department Care Team (Late st Contact Info) Description 12/24/2018 Telephone [place] [phone] Salud Ayers Other Social History Tobacco Use Types Packs/Day [...] Miscellaneous Notes * Telephone Encounter - Salud Ayers - 12/28/2018 2:07 PM EDT Patient called for status on surgery date. Printed office notes to give to nurses for surgery orders. * Telephone Encounter - Salud Ayers - 12/24/2018 9:59 AM EDT Patient called for surgery date. Emailed Dr. Gregorio. documented in this encounter Plan of Treatment Upcoming Encounters Date Type Department Care Team (Late st Contact Info) Description 05/24/2025 11:00 AM EDT Office Visit Radiation Oncology at [address] [phone] Jesse Mcmahan MD [facility] [address] documented as of this encounter Visit Diagnoses Not on filedocumented in this encounter Care Teams County Treasurer Relationship Specialty Start Date End Date Bj Alves MD [address] [place] [phone] PCP - General 06/25/10 04/02/23 documented as of this encounter
--- OUTSIDE RECORDS SUMMARY | 2024-08-01 15:27 | XMS_ITS | Encounter Summary ---
Author Organization [facility] [place] [address] Care Team Providers Care Quality Engineer Name Role Phone Bj Alves MD Primary Care Provider [phone] Encounter Details Date Type Department Care Team (Late Contact Info) Description 01/27/2019 11:15 AM EDT [place] [phone] Social History Tobacco Use Types Packs/Day Years [...] EDT Office Visit Radiation Oncology at [address] [phone] Jesse Mcmahan MD [facility] [place] [address] documented as of this encounter Visit Diagnoses Not on filedocumented in this encounter Care Teams Quality Engineer Relationship Specialty Start Date End Date Bj Alves MD [address] [place] [phone] PCP - General 06/25/10 04/02/23 documented as of this encounter
--- OUTSIDE RECORDS SUMMARY | 2024-08-01 15:27 | XMS_ITS | Encounter Summary ---
Author Organization [facility] [place] [address] Care Team Providers Care Mica Plate Layer Name Role Phone Bj Alves MD Primary Care Provider [phone] Reason for Visit * Reason Comments Aneurysm (Aortic) AAA 1 MOS RECHECK Encounter Details Date Type Department Care Team (Late st Contact Info) Description 03/04/2019 3:15 PM EDT Office [place] [address] Brandon Gregorio MD [facility] [place] [address] AAA (abdominal aortic aneurysm) without rupture Social [...] Sign Reading Time Taken Comments Blood Pressure 131/66 03/04/2019 2:23 PM EDT Pulse 69 03/04/2019 2:23 PM EDT Temperature - - Respiratory Rate 18 03/04/2019 2:23 PM EDT Oxygen Saturation - - Inhaled Oxygen Concentration - - Weight 102.1 kg (225 lb) 03/04/2019 2:23 PM EDT Height 175.3 cm (5' 9) 03/04/2019 2:23 PM EDT Body Mass Index 33.23 03/04/2019 2:23 PM EDT documented in this encounter Progress Notes * Brandon Gregorio MD - 03/04/2019 3:15 PM EDT The patient is status post an endovascular abdominal aortic aneurysm repair with a [place] Excluder graft which was performed in January 2019. Following the procedure the patient is done well. It was performed percutaneously. The patient is return to his usual activities. CT arteriogram today demonstrates intact stent graft architecture with a small type II endoleak. Our plan will be to have the patient return to the office in 6 months for a repeat CT arteriogram. documented in this encounter Plan of Treatment Upcoming Encounters Date Type Department Care Team (Late st Contact Info) Description 05/24/2025 11:00 AM EDT Office Visit Radiation Oncology at [address] [phone] Jesse Mcmahan MD [facility] [place] [address] documented as of this encounter Visit Diagnoses Diagnosis AAA (abdominal aortic aneurysm) without rupture Abdominal aneurysm without mention of rupture documented in this encounter Care Teams Mica Plate Layer Relationship Specialty Start Date End Date Bj Alves MD [address] [place] [phone] PCP - General 06/25/10 04/02/23 documented as of this encounter
--- OUTSIDE RECORDS SUMMARY | 2024-08-01 15:27 | XMS_ITS | Encounter Summary ---
Author Organization [facility] [place] [address] Care Team Providers Care Frozen Yogurt Maker Name Role Phone Bj Alves MD Primary Care Provider [phone] Encounter Details Date Type Department Care Team (Late st Contact Info) Description 06/08/2019 9:30 AM EST Office Visit Radiation Oncology at [address] [phone] Jesse Mcmahan MD [facility] [place] [address] Cancer of base of tongue Social History [...] Sign Reading Time Taken Comments Blood Pressure 120/78 06/08/2019 9:26 AM EST Pulse 73 06/08/2019 9:26 AM EST Temperature - - Respiratory Rate - - Oxygen Saturation 97% 06/08/2019 9:26 AM EST Inhaled Oxygen Concentration - - Weight - - Height - - Body Mass Index - - documented in this encounter Progress Notes * Jesse Mcmahan MD - 06/08/2019 9:30 AM EST Radiation Oncology Follow Up [...] ?? 12/09/11 CT H&N with contrast ([facility]): Mixed attenuation mass with lare low density areas suggesting necrotic change present deep to anterior aspect L SCM. Mass smoothly marginated, max 3.3 x 5.2 cm. ?? 11/27/11 PET-CT ([facility]): Despite premedication, severe claustrophobia allowed this can [...] ??? 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 DIFFICULT AIRWAY 650011 ??? Dysphagia, unspecified 787.20 Interval History: Sebastian Wyatt returns for an off grid follow up having completed radiotherapy approximately 7 years 2 months prior. Currently he notes the following symptoms: Symptom Description Ongoing Intervention Dysphagia Most foods tolerable, difficulty with chunkier foods, sock drier foods. He continues to note that he has food sticking in his mid-chest, although this has improved because he is compensating with smaller bites. Not seeing MEDICAL ADVISOR at this time. Odynophagia Rare Trismus Stable limitation, doing exercises. PT exercises Weight Loss No issues Diet Modifications Eating most foods, with moderate dysgeusia and moderate xerostomia Neck Symptoms Painful neck & shoulder pain, L > R, stabbing sensation, associated with activity. Slightly worse on left but stable on right. Exacerbated by activity such as driving. He [...] to Visit Medication Sig Dispense Refill ??? apremilast (OTEZLA) 30 mg Tablet Take 30 mg by mouth 2 times daily. 60 tablet 0 ??? folic acid (FOLVITE) 1 mg Tablet [...] 1 capsule by mouth daily. ??? [DISCONTINUED] metHOTREXate 2.5 mg Tablet Take by mouth once a week. No current facility-administered medications on file prior to visit. Past Medical History: Diagnosis Date ??? Acid reflux ??? Arthritis ??? Injury of left knee 2014 fall at work ??? Psoriasis ??? Psoriatic arthritis ??? Thyroid dysfunction Past Surgical History: Procedure Laterality Date ??? CARPAL TUNNEL RELEASE rt ??? PET SCAN (SCAN) 01/16/2012 PET SCAN performed by RESOURCE, ANESTHESIA-IRIS at [facility] ??? PET SCAN (SCAN) 07/06/2012 PET SCAN performed by Anesthesia-Iris Resource at [facility] ??? PRO ENDOVASC REPAIR DEPLOYMENT [id number] ENDOGRAFT N/A 01/28/2019 @EVG, AORTA/ILIAC ART RPR [id number] ENDOGRAFT; ANEURX performed by Brandon Gregorio MD at [facility] OR ??? PRO LARYNGOSCOPY, DIRCT, OP SCOP, EXC TUMR 12/12/2011 LARYNGOSCOPY, DIRECT, EXCISION OF TUMOR, CORD STRIPPING, MICRO performed by BECKY GANN at [facility] OR ??? PRO LARYNGOSCOPY, DIRCT, OP SCOPE, BIOPSY 12/12/2011 LARYNGOSCOPY, MICROSCOPE, WITH BIOPSY performed by BECKY GANN at [facility] OR ? ? PRO PERQ ACCESS & CLOSURE FEM ART FOR DELIVERY NDGFT Bilateral 01/28/2019 PERC ACCESS & CLOSURE OF FEMORAL ARTER FOR DELIVERY OF ENDOGRAFT THROUGH LARGE SHEATH performedby Brandon Gregorio MD at [facility] MAIN OR Physical Examination: Vitals: 06/08/19 0926 BP: 120/78 Patient Position: Sitting Pulse: 73 SpO2: 97% Physical Exam Constitutional: He is oriented to person, place, and time. He appears well- developed and well-nourished. HENT: Visual inspection of OC and OP revealed no evidence of suspicious masses or lesions. Palpation reveals posterior aspect of oral tongue soft without masses or lesions. Oral tongue slightly deviates toleft on extrusion; altered sensation left lateral tongue. [...] affect. His behavior is normal. Procedure: Interval Imaging: None Assessment/Plan: ?? Squamous cell carcinoma of the BOT ?? Disease Status: MARCO ?? KPS: 80% ?? Radiation toxicity: stable ?? Xerostomia: Moderate, using water/biotene to assist ?? Dysphagia: dysphagia mid-chest still present, uncertain etiology. We discussed an MBS to evaluate and he was amenable. ?? Fibrosis/Edema: significant fibrosis of bilateral neck, L > R. Pent/Vit E not helpful. Tolerating currently, has had nerve block in the past to ome effect. ?? Shoulder pain/arm parethesias/LUE weakness: Stable. He [...] Fluoride ?? Summary: at this point he has MARCO. We will continue routine follow up. . ?? Arthritis: psoriatic arthritis, managed by Rheumatology. ?? Left Knee Pain: continuing PT and steroid injections ?? 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
--- OUTSIDE RECORDS SUMMARY | 2024-08-01 15:27 | XMS_ITS | Encounter Summary ---
[place] [address] Care Team Providers Care Hadoop Infrastructure Architect Name Role Phone Bj Alves MD Primary Care Provider Reason for Referral * Consultation (Routine) - Closed Specialty Diagnoses / Procedures Referred By Sheila colvin Referred To Contact Endocrinology Diagnoses Cancer of base of tongue Jesse Mcmahan MD [facility] [place] [address] [facility] Endocrinology [address] [place] [phone] Referral ID Status Reason Start Date Expiration Date V isits Requested Visits Authorized [id number] Closed Consult, Test & Treat 06/07/2020 06/07/2021 1 1 Encounter Details Date Type Department Care Team (Late st Contact Info) Description 06/06/2020 3:00 PM EST Office Visit Radiation Oncology at [address] [phone] Jesse Mcmahan MD [facility] [place] [address] Cancer of base of tongue Social History [...] Sign Reading Time Taken Comments Blood Pressure 120/69 06/06/2020 3:09 PM EST Pulse 68 06/06/2020 3:09 PM EST Temperature 37 ??C (98.6 ??F) 06/06/2020 3:09 PM EST Respiratory Rate 18 06/06/2020 3:09 PM EST Oxygen Saturation 100% 06/06/2020 3:09 PM EST Inhaled Oxygen Concentration - - Weight 97.1 kg (214 lb) 06/06/2020 3:09 PM EST Height - - Body Mass Index 31.6 03/04/2019 2:23 PM EDT documented in this encounter Progress Notes * Jesse Mcmahan MD - 06/06/2020 3:00 PM EST Radiation Oncology Follow Up [...] Staging: ?? 12/09/11 CT H&N with contrast ([facility]): Mixed attenuation mass with lare low density areas suggesting necrotic change present deep to anterior aspect L SCM. Mass smoothly marginated, max 3.3 x 5.2 cm. ?? 11/27/11 PET-CT ([facility]): Despite premedication, severe claustrophobia allowed this can [...] ??? 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 DIFFICULT AIRWAY [id number] ??? Dysphagia, unspecified 787.20 Interval History: Sebastian Wyatt returns for an off grid follow up having completed radiotherapy approximately 8 years 2 months prior. Currently he notes the following symptoms: Symptom Description Ongoing Intervention Dysphagia Stable. Most foods tolerable, difficulty with chunkier foods, steam drier operator foods. He continues to note that he has food sticking in his mid-chest, although this has improved because he is compensating with smaller bites. Not seeing DICTATING MACHINE TRANSCRIBER at this time. MBS unremarkable 2018. Odynophagia Rare Trismus Stable limitation, doing exercises. PT exercises Weight Loss No issues Diet Modifications Eating most foods, with moderate dysgeusia and moderate xerostomia Neck Symptoms Painful neck & shoulder pain, L > R, stabbing sensation, associated with activity. Slightly worse on left but diminished on right. Exacerbated by activity such as driving. He also has stable mild weakness of his left hand, sensation of ulnar nerve numbness, waxing/waning but infrequent. Neurosurgical evaluation and MRI indicated no good [...] had has some dental extractions without difficulty. He has had some dental cracking Following with dentistry, using [place] toothpaste Otalgia/Referred [...] PET SCAN performed by RESOURCE, ANESTHESIA-IRIS at [facility] IRIS ??? PET SCAN (SCAN) 07/06/2012 PET SCAN performed by Anesthesia-Iris Resource at [facility] IRIS ??? PRO ENDOVASC REPAIR DEPLOYMENT [id number] ENDOGRAFT N/A 01/28/2019 @EVG, AORTA/ILIAC ART RPR [id number] ENDOGRAFT; ANEURX performed by Brandon Gregorio MD at [facility] MAIN OR ??? PRO LARYNGOSCOPY, DIRCT, OP SCOP, EXC TUMR 12/12/2011 LARYNGOSCOPY, DIRECT, EXCISION OF TUMOR, CORD STRIPPING, MICRO performed by BECKY GANN at [facility] MAIN OR ??? PRO LARYNGOSCOPY, DIRCT, OP SCOPE, BIOPSY 12/12/2011 LARYNGOSCOPY, MICROSCOPE, WITH BIOPSY performed by BECKY GANN at [facility] MAIN OR ? ? PRO PERQ ACCESS & CLOSURE FEM ART FOR DELIVERY NDGFT Bilateral 01/28/2019 PERC ACCESS & CLOSURE OF FEMORAL ARTER FOR DELIVERY OF ENDOGRAFT THROUGH LARGE SHEATH performedby Brandon Gregorio MD at [facility] MAIN OR Physical Examination: Vitals: 06/06/20 1509 BP: 120/69 Patient Position: Sitting Pulse: 68 Resp: 18 Temp: 37 ??C (98.6 ??F) SpO2: 100% Weight: 97.1 kg (214 lb) Physical Exam Constitutional: He is oriented [...] His behavior is normal. Procedure: Flexible laryngoscopy was performed. The right naris was anesthetized with aerosolized lidocaine, and the laryngoscope was passed without difficulty. The nasopharynx was visualized and waswithout masses or lesions. The oropharynx, larynx, and piriform sinuses were visualized and were without masses or lesions. The vocal cords apposed without difficulty. Interval Imaging/Labs: CXR 06/04/20: MARCO, no acute processes TSH: 34.6 Assessment/Plan: ?? Squamous cell carcinoma of the BOT ?? Disease Status: MARCO ?? KPS: 80% ?? Radiation toxicity: stable ?? Xerostomia: Moderate, using water/biotene to assist ?? Dysphagia: dysphagia mid-chest still present, occasional. MBS unremarkable 2018. ?? Fibrosis/Edema: significant fibrosis of bilateral neck, L > R. Pent/Vit E not helpful. Tolerating currently, has had nerve block in the past to some effect. ?? Shoulder pain/arm parethesias/LUE weakness: Stable. He has a prior injury of that shoulder that was associated with weakness and altered sensation, and has been evaluated by Neurology/Neurosurgeryand EMG demonstrated neuropathy ?? 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 Stable. ?? Thyroid: TSH checked and managed by Dr. Alves, but it has been poorly controlled over the past year despite increasing levothyroxine. At this point I will refer him to Endocrinology. ?? Dental: RTOG dental Grade 1, good dental care, using Fluoride ?? Summary: at this point he has MARCO. We will continue routine follow up. . ?? Arthritis: psoriatic arthritis, managed by Rheumatology. ?? FU: follow up with radiation oncology per [facility] algorithm documented in this encounter Plan of Treatment Upcoming Encounters Date Type Department Care Team (Late st Contact Info) Description 05/24/2025 11:00 AM EDT Office Visit Radiation Oncology at [address] [phone] Jesse Mcmahan MD [facility] [place] [address] Scheduled Referrals Name Type Priority Associated Diagnoses Order Schedule Referral to Endocrinology Outpatient Referral Routine Cancer of base of tongue Ordered: 06/07/2020 documented as of this encounter Visit Diagnoses Diagnosis 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
--- OUTSIDE RECORDS SUMMARY | 2024-08-01 15:27 | XMS_ITS | Encounter Summary ---
Author Organization [facility] [place] [address] Care Team Providers Care Modern Languages Professor Name Role Phone Bj Alves MD Primary Care Provider [phone] Encounter Details Date Type Department Care Team (Late Contact Info) Description 02/02/2019 Orders Only [place] [phone] Ethel Fuller Social History Tobacco Use Types Packs/Day Years [...] EDT Office Visit Radiation Oncology at [address] [phone] Jesse Mcmahan MD [facility] [place] [address] documented as of this encounter Visit Diagnoses Not on filedocumented in this encounter Care Teams Modern Languages Professor Relationship Specialty Start Date End Date Bj Alves MD [address] [place] [phone] PCP - General 06/25/10 04/02/23 documented as of this encounter
--- OUTSIDE RECORDS SUMMARY | 2024-08-01 15:27 | XMS_ITS | Encounter Summary ---
Author Organization [facility] [place] [address] Care Team Providers Care Oven Drier Tender Name Role Phone Bj Alves MD Primary Care Provider [phone] Encounter Details Date Type Department Care Team (Late st Contact Info) Description 10/22/2018 Telephone Radiation Oncology at [address] [phone] Marcelina Edwards RN Social History Tobacco Use [...] Telephone Encounter - Marcelina Edwards RN - 10/22/2018 2:41 PM EDT Radiation Oncology Nurse Telephone Note [facility] [place], [place] Patient calls stating on Thursday , 4 days ago, he developed some neck swelling on the left side of his neck around the incision and down to his left upper shoulder. The swelling has improved some, butit is quite painful to touch and to lay on his left side, grading it a 8/10. The pain will wake himup if he moves to his left side while sleeping. He has done lymphedema massage in the past, but currently it is too painful to touch this area to attempts this. He describes it as a sharp stabbing pain. He is taking Celebrex 200 mg daily and Tylenol PRN with some relief. He denies any difficulty with breathing or swallowing. He recently returned from [place] 10 days ago. He denies getting a sunburn, but he has tanned easily. He has an appointment to see Martir here in [facility] in 2 weeks on 11/05. He plans to ask Dr Mcmahan ifhe should have some surgery to release some scar tissue in this area. In the mean time, he plans toinform his PCP of this pain to see if he can be seen by a provider sooner. Instructions: he was instructed to continue taking the Celebrex and tylenol for pain. He is to report to this clinic or go to his local ER if he develops any difficulty in swallowing or problems withbreathing or increased pain that is no longer helped by his meds.. I reassured pt that Dr Mcmahan will be informed of this via this note. Patient verbalized understanding of these instructions. documented in this encounter Plan of Treatment Upcoming Encounters Date Type Department Care Team (Late st Contact Info) Description 05/24/2025 11:00 AM EDT Office Visit Radiation Oncology at [address] [phone] Jesse Mcmahan MD [facility] [place] [address] documented as of this encounter Visit Diagnoses Not on filedocumented in this encounter Care Teams Oven Drier Tender Relationship Specialty Start Date End Date Bj Alves MD [address] [place] [phone] PCP - General 06/25/10 04/02/23 documented as of this encounter
--- OUTSIDE RECORDS SUMMARY | 2024-08-01 15:28 | XMS_ITS | Encounter Summary ---
Author Organization [facility] [place] [address] Care Team Providers Care Engineering Test Mechanic Name Role Phone Bj Alves MD Primary Care Provider [phone] Reason for Visit * Reason Comments Radiation Follow-up cancer of the tongue Encounter Details Date Type Department Care Team (Late st Contact Info) Description 02/24/2013 3:00 PM EDT Follow-Up Radiation Oncology at [address] [phone] Shannan Johnson APRN Tongue cancer (Primary Dx); Hypothyroidism (acquired) Discharge Disposition: Home Social History Tobacco Use [...] Sign Reading Time Taken Comments Blood Pressure 134/81 02/24/2013 2:47 PM EDT Pulse 80 02/24/2013 2:47 PM EDT Temperature 36.2 ??C (97.1 ??F) 02/24/2013 2:47 PM ED T Respiratory Rate 18 02/24/2013 2:47 PM EDT Oxygen Saturation 98% 02/24/2013 2:47 PM EDT Inhaled Oxygen Concentration - - Weight 88.5 kg (195 lb) 02/24/2013 2:47 PM EDT Height - - Body Mass Index 26.45 10/18/2012 3:08 PM EDT documented in this encounter Progress Notes * Shannan Johnson, FLAT SORTER PROCESSOR - 02/24/2013 3:13 PM EDT Subjective: Patient ID: Sebastian Wyatt is a 57 y.o. 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 1 PPD x 38 yrs. Quit 08/2011. Developed odynophagia early 11/2011, abx did not improve, . Referred to ENT. He does note some coughing in the morning ove the past year. Stagin12/09/11 CT H&N with contrast ([facility]): Mixed attenuation mass with lare low density areas suggesting necrotic change present deep to anterior aspect L SCM. Mass smoothly marginated, max 3.3 x 5.2 cm. 11/27/11 PET-CT ([facility]): Despite premedication, severe claustrophobia allowed this can [...] cetuximab arm. Received 70 Gy completed 04/06/12 Patient Active Problem List Diagnoses Code ??? Cancer of base of tongue 141.0 ??? Obesity 278.00 ??? Hyperlipidemia 272.4 ??? Hypertension 401.9 ??? Glucose intolerance (impaired glucose tolerance) 790.22 ??? Hypothyroidism 244.9 ??? GERD (gastroesophageal reflux disease) 530.81 ??? Psoriasis 696.1 ??? Sleep apnea 780.57 ??? Anxiety 300.00 ??? Back pain, chronic 724.5 ??? Thalassemia minor 282.49 ??? Claustrophobia 300.29 ??? 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 DIFFICULT AIRWAY [id number] ??? Dysphagia, unspecified 787.20 Past Surgical History Procedure Date ??? Carpal tunnel release rt ??? Laryngoscopy, dirct, op scope, biopsy 12/12/2011 LARYNGOSCOPY, MICROSCOPE, WITH BIOPSY performed by BECKY GANN at [facility] OR ??? Laryngoscopy, dirct, op scop, exc tumr 12/12/2011 LARYNGOSCOPY, DIRECT, EXCISION OF TUMOR, CORD STRIPPING, MICRO performed by BECKY GANN at [facility] OR ??? Scan doc: pet scan 01/16/2012 PET SCAN performed by LES REYNOLDS at [facility] ??? Scan doc: pet scan 07/06/2012 PET SCAN performed by Anesthesia-Iris Reynolds at [facility] No Known Allergies Current Outpatient Prescriptions on File Prior to Visit Medication Sig Dispense Refill ??? celecoxib (CELEBREX) 100 mg capsule Take 100 mg by mouth daily as needed. ??? levothyroxine (SYNTHROID) 100 mcg tablet Take 175 mcg by mouth daily. Indications: Hypothyroidism ??? methotrexate 2.5 mg tablet Take by mouth once a week. Can take without regard to food. Call clinic before/prior to starting medication/script. ??? amlodipine-benazepril (LOTREL) 5-10 mg per capsule Take 2 capsules by mouth daily. ??? B Complex-Vitamin C-Folic Acid (NEPHROCAP) 1 mg capsule Take 1 capsule by mouth daily. ??? cholecalciferol, Vitamin D3, 400 unit tablet Take 400 Units by mouth daily. ??? ascorbic acid (VITAMIN C) 500 mg tablet Take 500 mg by mouth daily. ??? metoprolol succinate (TOPROL-XL) 100 mg XL tablet Take 50 mg by mouth daily. ??? rosuvastatin (CRESTOR) 10 mg tablet Take 10 mg by mouth daily. ??? DISCONTD: white petrolatum ophthalmic ointment Place 1 drop into the right eye daily. 3.5 g 12 ??? DISCONTD: acetaminophen (TYLENOL) 160 mg/5 mL liquid Take 15 mg/kg/dose by mouth every 4 hours as needed. History Social History ??? Marital Status: Spouse Name: N/A Number of Children: N/A ??? Years of Education: N/A Occupational History ??? Not on file. Social History Main Topics ??? Smoking status: Former Smoker -- 1.0 packs/day for 38 years Quit date: 08/06/2011 ??? Smokeless tobacco: Never Used ??? Alcohol Use: 0.6 oz/week 1 Glasses of wine per week rarely one glass of wine occasionally ??? Drug Use: Not on file ??? Sexually Active: Not on file Other Topics Concern ??? 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 Lives near [facility] with , 10yo daughter, 2 horses, 2 dogs. Advance Directive: Not on file. See advance care planning note Interval History: Sebastian Wyatt returns for routine follow up. He completed radiotherapy approximately nearly 11 months prior. Diagnosed with psoriatic arthritis by Hogshead Stripper recently, now on MTX but no longer on prednisone. He will be seeing his bus starter again tomorrow. Currently he notes the following symptoms: Symptom Description Ongoing Intervention Dysphagia No choking or coughing unless eating large volumes quickly Referral was made for swallow study to be done at [facility] Odynophagia Chronic pain associated with eating, often intense, using minimal pain medication as hedoes not feel that it is necessary Not using oxycodone only celebrex Trismus Improving, doing exercises. PT exercises --STILL GOING TO [facility] Weight Loss 185 => 194.5 today --loss from previous visit Diet Modifications Eating most foods unchanged Neck Symptoms L shoulder pain, no change. Chronic at some level, intermittent flares. He cannot lift his left arm above the level of his shoulder. He has completed PT Stopped the gabapentin. Continue monitoring taste Fluctuates. 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 MTX, --prednisone is done He continues to have difficulty with fatigue, insomnia. Fatigue is often profound, unable to stay awake in the afternoons. He has sleep apnea as well and does not use CPAP which can also contribute to his fatigue but he has not been able to tolerate the masks. 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 He does not want to be on disability. He had labs done today TSH was in the normal range. His levothyroxine is 175 mcg a day. Review of Systems Constitutional: Positive for fatigue. Negative for fever, diaphoresis, appetite change and unexpected weight change. HENT: Positive for tinnitus. Negative for sore throat, mouth sores and dental problem. Swelling under chin is much less since starting PT with Korin Craig. Eyes: Negative. Reports annoying dry eye on the right for several days which is worse in am Respiratory: Negative. Negative for cough, chest tightness, shortness of breath and wheezing. Cardiovascular: Negative. Negative for chest pain and leg swelling. Musculoskeletal: Positive for joint swelling and arthralgias. Left shoulder very painful and not able to lift arm above shoulder level. Skin: Negative. Neurological: Negative for tremors. Balance is difficult when walking on uneven surfaces and it creates pain involving his legs Hematological: Negative. Psychiatric/Behavioral: Positive for sleep disturbance. Negative for dysphoric mood. The patient isnot nervous/anxious. Some short term memory changes Filed Vitals: 02/24/13 1447 BP: 134/81 Pulse: 80 Temp: 36.2 ??C (97.1 ??F) TempSrc: Oral Resp: 18 Weight: 88.451 kg (195 lb) SpO2: 98% KPS: 90 Objective: Physical Exam Constitutional: He is oriented to person, place, and time. He appears well- developed and well-nourished. No distress. HENT: Head: Normocephalic. Mouth/Throat: Oropharynx is clear and moist. No oropharyngeal exudate. Saliva is thick Tongue is midline and mobile No mucositis Decreasing lymphedema under chin--neck with some fibrosis but limited lymphedema Eyes: Conjunctivae normal are normal. No scleral icterus. Neck: Normal range of motion. Neck supple. Cardiovascular: Normal rate, regular rhythm and normal heart sounds. Exam reveals no gallop and no friction rub. No murmur heard. Pulmonary/Chest: Effort normal and breath sounds normal. No respiratory distress. He has no wheezes. He has no rales. He exhibits no tenderness. Musculoskeletal: He exhibits no edema and no tenderness. Not able to lift left arm above shoulder level. Lymphadenopathy: Head (right side): No submental, no submandibular, no tonsillar, no preauricular, no posterior auricular and no occipital adenopathy present. Head (left side): No submental, no submandibular, no tonsillar, no preauricular, no posterior auricular and no occipital adenopathy present. He has no cervical adenopathy. He has no axillary adenopathy. Right: No supraclavicular adenopathy present. Left: No supraclavicular adenopathy present. Neurological: He is alert and oriented to person, place, and time. He exhibits normal muscle tone. Coordination normal. Skin: Skin is warm and dry. No rash noted. He is not diaphoretic. No erythema. No pallor. Psychiatric: He has a normal mood and affect. His behavior is normal. Judgment and thought content normal. Laboratory: 12/10/2012 02/21/2013 TSH 55.4 3.05 WBC 7.6 6.3 RBC 5.69 5.55 HGB 12.2 11.9 HCT 37.6 36.3 MCV 66.1 65.4 MCH 21.4 21.4 RDW 17.8 15 PLAT 215 200 BASO 1.2 1.3 NEUT 74.4 72.8 LYMP 14.5 17.4 BUN 16 16 CREAT 0.90 0.90 GLU 111 87 CA 9.2 9.3 NA 142 139 K+ 3.6 4.2 CO2 26.9 29.1 PROT 7.0 7.7 ALB 4.0 4.1 BILI 0.5 0.7 ALK P 80 69 ALT 17 18 AST 30 35 CRP 0.38 0.95 SED -R 4 Assessment and Plan: Cancer base of tongue: MARCO. He has decreasing under the chin fullness. [facility]. He is also doing MLD. Referral for SCORE CALLER Patient will be seeing dr Gann in March and is to have a CT of the head/neck/chest prior to that appointment Pain: pain is unchanged. He has been started on methotrexate for his psoriatic arthritis pain. He prefers to not use pain medication. Pain with swallowing is less--ongoing monitoring. Hypothyroidism: TSH is now in normal range with levothyroxine 175 mcg a day. Repeat TSH in two months Fatigue continues and limits the amount of time he can work. 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 Support provided to continue. Swallowing: We will arrange for a swallow study to be done at [facility] Dry eye: Resolved We will see patient again in two Months in [facility] Onc. H. He is scheduled to have an appointment with Dr Gann 03/[address] scan at [facility] documented in this encounter Procedure Notes * Provider, Scanning - 02/24/2013 4:28 PM EDTAssociated Order(s): SCAN DOC: LAB documented in this encounter Consult Notes * Provider, Scanning - 03/02/2013 9:19 AM EDT * Provider, Scanning - 03/01/2013 2:56 PM EDT documented in this encounter Plan of Treatment Upcoming Encounters Date Type Department Care Team (Late st Contact Info) Description 05/24/2025 11:00 AM EDT Office Visit Radiation Oncology at [address] [phone] Jesse Mcmahan MD [facility] [place] [address] documented as of this encounter Procedures Procedure Name Priority Date/Time Associated Diagnosis Comments LAB SCAN 02/24/2013 4:28 PM EDT documented in this encounter Results * SCAN DOC: LAB (02/24/2013 4:28 PM EDT) Narrative 02/24/2013 4:28 PM EDT Procedure Note Provider, Scanning - 02/24/2013 4:28 PM EDT Scanning Provider MEDIA MGR SCAN EXT O RDR/RSLT documented in this encounter Visit Diagnoses Diagnosis Tongue cancer- Primary Malignant neoplasm of tongue, unspecified site Hypothyroidism (acquired) Unspecified hypothyroidism documented in this encounter Care Teams Engineering Test Mechanic Relationship Specialty Start Date End Date Bj Alves MD [address] [place] [phone] PCP - General 06/25/10 04/02/23 documented as of this encounter
--- OUTSIDE RECORDS SUMMARY | 2024-08-01 15:28 | XMS_ITS | Encounter Summary ---
Author Organization [facility] [place] [address] Care Team Providers Care Salicylic Acid Blender Name Role Phone Bj Alves MD Primary Care Provider [phone] Reason for Visit * Reason Comments Radiation Follow-up head and neck cancer Encounter Details Date Type Department Care Team (Late st Contact Info) Description 02/22/2015 9:00 AM EDT Follow-Up Radiation Oncology at [address] [phone] Shannan Johnson, ONLINE CONTENT COORDINATOR Cancer of base of tongue Discharge Disposition: Home Social History Tobacco Use [...] Sign Reading Time Taken Comments Blood Pressure 140/85 02/22/2015 9:09 AM EDT Pulse 62 02/22/2015 9:09 AM EDT Temperature 36.4 ??C (97.5 ??F) 02/22/2015 9:09 AM ED T Respiratory Rate 16 02/22/2015 9:09 AM EDT Oxygen Saturation 98% 02/22/2015 9:09 AM EDT Inhaled Oxygen Concentration - - Weight 100.9 kg (222 lb 8 oz) 02/22/2015 9:09 AM EDT Height - - Body Mass Index 32.95 05/12/2013 2:49 PM EDT documented in this encounter Progress Notes * Shannan Johnson, ONLINE CONTENT COORDINATOR - 02/22/2015 8:51 AM EDT Subjective: Patient ID: Sebastian Wyatt is a 59 y.o. 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 He was treated under clinical trial RTOG 1016 and completed treatment on 04/06/2012. 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 1 PPD x 38 yrs. Quit 08/2011. Developed odynophagia early 11/2011, abx did not improve, . Referred to ENT. He does note some coughing in the morning ove the past year. Stagin12/09/11 CT H&N with contrast ([facility]): Mixed attenuation mass with lare low density areas suggesting necrotic change present deep to anterior aspect L SCM. Mass smoothly marginated, max 3.3 x 5.2 cm. 11/27/11 [place] Despite premedication, severe claustrophobia allowed this can [...] cetuximab arm. Received 70 Gy completed 04/06/12 ONCN ONCOLOGY (AMB) 02/17/2012 02/24/2012 03/02/2012 03/09/2012 cetuximab (ERBITUX) IV 900 mg 563 mg 563 mg 563 mg ONCBCN ONCOLOGY (AMB) 03/17/2012 03/23/2012 03/30/2012 04/06/2012 cetuximab (ERBITUX) IV 563 mg 563 mg 563 mg 563 mg Treatment summary: Head and Neck Cancer Notes 08/24/2014 Current disease status Observation/MARCO Presenting symptoms: odynophagia Local specialist evaluation evaluation by ENT at Diagnostic method CT of neck 11/27/2011 Diagnostic biopsy [place] [facility] Dr Rio Gann Date of Cancer Diagnosis: 12/12/2011 Date of EUA: 12/12/2011 EUA [place] [facility] [place] date: 11/27/2011 PET/CT date: 11/27/2011--limited study due to claustrophobia Primary Site: oropharynx Oropharynx tongue base Laterality left T stage cT2 N Stage cN2a M Stage cM0 Histology Squamous cell Radiation Yes under the care of Dr Jesse Mcmahan Radiation intent definitive Start date 02/24/2012 Stop date 04/06/2012 Tumor dose, Gy 70 Gy Technique IMRT Chemotherapy concurrent Chemotherapy regimen Cetuximab Chemotherapy Frequency Weekly Swallowing function minor diet modifications/restrictions Surveillance: 03/10/2013--CT of chest--no evidence of recurrence. 03/07/2014--CT chest--no evidence of disease recurrence. 05/25/2014 --CT chest--no abnormality 06/01/2014 CT of neck--no evidence of recurrence Patient Active Problem List Diagnosis Code ??? Cancer of base of tongue 141.0 ??? Obesity 278.00 ??? Hyperlipidemia 272.4 ??? Hypertension 401.9 ??? Glucose intolerance (impaired glucose tolerance) 790.22 ??? Hypothyroidism 244.9 ??? GERD (gastroesophageal reflux disease) 530.81 ??? Psoriasis 696.1 ??? Sleep apnea 780.57 ??? Anxiety 300.00 ??? Back pain, chronic 724.5, 338.29 ??? Thalassemia minor 282.49 ??? Claustrophobia 300.29 ??? 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 DIFFICULT AIRWAY ??? Dysphagia, unspecified 787.20 ??? 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 Carpal tunnel release rt ??? Laryngoscopy, dirct, op scope, biopsy 12/12/2011 LARYNGOSCOPY, MICROSCOPE, WITH BIOPSY performed by RIO GANN at [facility] MAIN OR ??? Laryngoscopy, dirct, op scop, exc tumr 12/12/2011 LARYNGOSCOPY, DIRECT, EXCISION OF TUMOR, CORD STRIPPING, MICRO performed by RIO GANN at [facility] MAIN OR ??? Scan doc: pet scan 01/16/2012 PET SCAN performed by LES REYNOLDS at [facility] ??? Scan doc: pet scan 07/06/2012 PET SCAN performed by Anesthesia-Iris Reynolds at [facility] No Known Allergies Current Outpatient Prescriptions on File Prior to Visit Medication Sig Dispense Refill ??? cholecalciferol, Vitamin D3, 400 unit tablet Take 400 Units by mouth daily. ??? METHOTREXATE SODIUM, PF, INJ Inject 0.4 mg as directed once a week. Self injects in thigh. For arthritits ??? celecoxib (CELEBREX) 100 mg capsule Take 100 mg by mouth daily as needed. ??? levothyroxine (SYNTHROID) 100 mcg tablet Take 175 mcg by mouth daily. Indications: Hypothyroidism ??? amlodipine-benazepril (LOTREL) 5-10 mg per capsule Take 2 capsules by mouth daily. ??? B Complex-Vitamin C-Folic Acid (NEPHROCAP) 1 mg capsule Take 1 capsule by mouth daily. ??? ascorbic acid (VITAMIN C) 500 mg tablet Take 500 mg by mouth daily. ??? metoprolol succinate (TOPROL-XL) 100 mg XL tablet Take 50 mg by mouth daily. ??? rosuvastatin (CRESTOR) 10 mg tablet Take 10 mg by mouth daily. No current facility-administered medications on file prior to visit. History Social History ??? Marital Status: Spouse Name: N/A Number of Children: N/A ??? Years of Education: N/A Occupational History ??? Not on file. Social History Main Topics ??? Smoking status: Former Smoker -- 1.00 packs/day for 38 years Quit date: 08/06/2011 ??? Smokeless tobacco: Never Used ??? Alcohol Use: 0.6 oz/week 1 Glasses of wine per week Comment: rarely one glass of wine occasionally ??? Drug Use: Not on file ??? Sexual Activity: Not on file Other Topics Concern ??? 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 Lives near [facility] with , 13yo daughter, 2 horses, 2 dogs. Advance Directive: Not on file. See advance care planning note Interval History: Sebastian Wyatt is being seen in clinic for scheduled follow up. He completed radiotherapy 04/2012. He also has been diagnosed with psoriatic arthritis And is being followed by Utility Division Project Manager every three months. He continues on MTX but no longer on prednisone. Currently he notesthe following symptoms: Symptom Description Ongoing Intervention Dysphagia He reports stable choking when swallowing if he is not careful. Beef is especially difficult but otherwise doing satisfactorily LEAD MACHINIST evaluation was done--see scanned documents No new intervention Odynophagia Chronic pain associated with mainly his joints, using no pain medication as he does notfeel that it is necessary Opening his mouth wide causes TMJ pain L>R F/U with rheumatology for Psoriatic arthritis Trismus Improving, doing exercises. PT exercises --ongoing Weight Loss 185 at end of treatment=> 222 today -- Not a problem Diet Modifications Eating most foods unchanged Neck Symptoms L shoulder pain and left neck pain with associated spasms that last about one minute and occur daily. . Chronic at some level, intermittent flares. He cannot lift his left arm above thelevel of his shoulder. He has completed PT Stopped the gabapentin. Patient does not want any change in plan. Continue monitoring taste Fluctuates. At times improved and normal but not sustained Continue to monitor Dental Issues Some tenderness when flossing, using dental trays . Rgular dental follow up with no issues. Last dental exam about 6 weeks ago--no caries. Following with dentistry --he sees his dentistevery six months. He had no cavities at his last visit. Otalgia/Referred Pain No complaints fatigue Ongoing Dry eye resolved Xerostomia Improving over time --Increased dryness at night Other Pain Pain associated knees, ankles and shoulders due to psoriatic arthritis and left knee dueto injury MTX--sees apricot washer every three months. Uses MTX daily and celebrex only with flaresof pain.--affected areas ankles, heels, toes, lower back, wrists, fingers hypothyroid Patient on levothyroxine PCP is monitoring Patient is currently not working. He is on leave after having a fall at work that caused major trauma to his left leg > 6 months ago. His in the process of applying for medical usp. He continues to have Pain currently 6/10 to his knee and multiple joints. He does not take any painmedication and does not want to start. He continues to have difficulty with fatigue, insomnia. He has sleep apnea as well and does not use CPAP. Review of Systems Constitutional: Positive for fatigue. Negative for fever, diaphoresis, activity change, appetite change and unexpected weight change. HENT: Positive for tinnitus and trouble swallowing. Negative for dental problem, hearing loss, mouth sores, sore throat and voice change. Neck stiffness and intermittent increase in swelling left side of neck associated with pain and spasm that lasts about one minute and occurs at least once a day. Eyes: Negative. Tearing of eyes--dryness resolved Respiratory: Negative. Negative for cough, chest tightness, shortness of breath and wheezing. Cardiovascular: Negative. Negative for chest pain and leg swelling. Gastrointestinal: Negative. Genitourinary: Negative. Musculoskeletal: Positive for joint swelling and arthralgias. Left shoulder very painful and not able to lift arm above shoulder level. Left knee pain due to injury several months ago. Patient has been trying to exercise on his stair climber . Skin: Positive for rash. +Psoriasis Neurological: Negative for tremors and weakness. Balance is difficult when walking on uneven surfaces and it creates pain involving his legs Psychiatric/Behavioral: Positive for sleep disturbance. Negative for dysphoric mood. The patient isnot nervous/anxious. Vitals Follow-Up from 02/22/2015 in [facility] Radiation Oncology Weight - Scale (!) 100.925 kg (222 lb 8 oz) Temp 36.4 ??C (97.5 ??F) Temp Source Oral Heart Rate 62 Heart Rate Source Right, NIBP Resp 16 BP 140/85 mmHg BP Location Right arm Patient Position Sitting SpO2 98 % Objective: Physical Exam Constitutional: He is oriented to person, place, and time. He appears well- developed and well-nourished. No distress. HENT: Head: Normocephalic. Mouth/Throat: Oropharynx is clear and moist. No oropharyngeal exudate. Tongue is midline and mobile No mucositis No lymphedema under chin--left neck fibrosis Restricted ROM to the left Eyes: Conjunctivae and EOM are normal. Right eye exhibits no discharge. Left eye exhibits no discharge. No scleral icterus. Neck: Trachea normal. No tracheal tenderness present. Carotid bruit is not present. Decreased rangeof motion present. No thyroid mass and no thyromegaly present. Cardiovascular: Normal rate, regular rhythm and normal heart sounds. Exam reveals no gallop and no friction rub. No murmur heard. Pulmonary/Chest: Effort normal and breath sounds normal. No stridor. No respiratory distress. He has no wheezes. He has no rales. He exhibits no tenderness. Musculoskeletal: He exhibits no edema or tenderness. Not able to lift left arm [...] normal. Skin: Skin is warm and dry. Rash noted. He is not diaphoretic. No erythema. No pallor. Large area Psoriasis right elbow area Psychiatric: He has a normal mood and affect. His behavior is normal. Judgment and thought content normal. Vitals reviewed. Laboratory: PCP monitoring TSH and apricot washer evaluates CBC and CMP every three months Assessment and Plan: Mr Wyatt is a pleasant 59 year old man treated with chemoradiation for cancer base of tongue: Hissymptoms are stable at this time. He did have PT to try to reduce his left neck fibrosis and tightness. He indicates that this had limited benefit. He was taught exercises which he continues at home.CT scan of neck/chest will be repeated. Pain: pain involving his neck, leg and from psoriatic arthritis. He continues on methotrexate for his psoriatic arthritis pain. He prefers to not use pain medication. Pain with swallowing stable-ongoing monitoring. Hypothyroidism: PCP is now managing his hypothyroidism We will see patient again as per RTOG follow up. documented in this encounter Plan of Treatment Upcoming Encounters Date Type Department Care Team (Late st Contact Info) Description 05/24/2025 11:00 AM EDT Office Visit Radiation Oncology at [address] [phone] Jesse Mcmahan MD [facility] RADIATION [place] [address] documented as of this encounter Procedures Procedure Name Priority Date/Time Associated Diagnosis Comments CT SCAN (SCAN) 03/22/2015 12:[address] SCAN (SCAN) 03/22/2015 12:00 AM EDT documented in this encounter Results * SCAN DOC: CT SCAN (03/22/2015 12:00 AM EDT) Anatomical Region Laterality Modality Other Scanning Provider MEDIA MGR SCAN EXT O RDR/RSLT * SCAN DOC: CT SCAN (03/22/2015 12:00 AM EDT) Anatomical Region Laterality Modality Other Scanning Provider MEDIA MGR SCAN EXT O RDR/RSLT documented in this encounter Visit Diagnoses Diagnosis Cancer of base of tongue Malignant neoplasm of base of tongue documented in this encounter Care Teams Salicylic Acid Blender Relationship Specialty Start Date End Date Bj Alves MD [address] [place] [phone] PCP - General 06/25/10 04/02/23 documented as of this encounter
--- OUTSIDE RECORDS SUMMARY | 2024-08-01 15:28 | XMS_ITS | Encounter Summary ---
Author Organization [facility] [place] [address] Care Team Providers Care Delivery Assistant Name Role Phone Bj Alves MD Primary Care Provider [phone] Encounter Details Date Type Department Care Team (Late st Contact Info) Description 04/17/2017 2:00 PM EDT Office Visit Radiation Oncology at [address] [phone] Jesse Mcmahan MD [facility] [place] [address] Cancer of base of tongue Social History [...] Sign Reading Time Taken Comments Blood Pressure 135/76 04/17/2017 2:16 PM EDT Pulse 81 04/17/2017 2:16 PM EDT Temperature 36.5 ??C (97.7 ??F) 04/17/2017 2:16 PM ED T Respiratory Rate 18 04/17/2017 2:16 PM EDT Oxygen Saturation 98% 04/17/2017 2:16 PM EDT Inhaled Oxygen Concentration - - Weight 103.1 kg (227 lb 3.2 oz) 04/17/2017 2:16 PM EDT Height 175.3 cm (5' 9.02) 04/17/2017 2:16 PM ED T copied Body Mass Index 33.54 04/17/2017 2:16 PM EDT documented in this encounter Progress Notes * Jesse Mcmahan MD - 04/17/2017 2:00 PM EDT Radiation Oncology Follow Up Note [...] Staging: ?? 12/09/11 CT H&N with contrast ([facility]): Mixed attenuation mass with lare low density areas suggesting necrotic change present deep to anterior aspect L SCM. Mass smoothly marginated, max 3.3 x 5.2 cm. ?? 11/27/11 PET-CT ([facility]): Despite premedication, severe claustrophobia allowed this can [...] ??? 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 DIFFICULT AIRWAY [id number] ??? Dysphagia, unspecified 787.20 Interval History: Sebastian Wyatt returns for routine follow up having completed radiotherapy approximately 5 years prior. Currently he notes the following symptoms: Symptom Description Ongoing Intervention Dysphagia Most foods tolerable, difficulty with chunkier foods, sugar drier foods. Not seeing RESTAURANT HOSTESS at thistime. Odynophagia Rare Trismus Stable limitation, doing exercises. PT exercises Weight Loss Gain weight secondary to hypothyroidism, now resolved Diet Modifications Eating most foods, with moderate dysgeusia and moderate xerostomia Neck Symptoms ?? Stable, bothersome L shoulder pain and numbness associated with the ulnar nerve. No improvement. Exacerbated by activity such as driving. Neurosurgical evaluation and MRI indicated no good surgical options. Neurology: EMG indicates neuropathy. ?? He had severe right posterior neck pain, episodic in nature, could last for days. He continues to have left sided neck pain that is more episodic. He rates it as 3-4/10 with turning his head. Mildpain when looking ahead. He had nerve block of right neck with significant improvement. Dental Issues Good dental care Following with dentistry, using [place] toothpaste Otalgia/Referred Pain Intermittent tinnitus. Xerostomia Moderate to severe xerostomia, dysgeusia still moderate. Other Pain Pain associated knees, ankles and shoulders due to psoriatic arthritis. Stable. Otesla, MTX, dexamethasone No Known Allergies Current Outpatient Prescriptions on File Prior to Visit Medication Sig Dispense Refill ??? rosuvastatin (CRESTOR) 10 mg Tablet Take 10 mg by mouth daily. ??? tamsulosin (FLOMAX) 0.4 mg Capsule, Sust. Release 24 hr Take 0.4 mg by mouth daily. ??? acyclovir (ZOVIRAX) 400 mg Tablet Take 400 mg by mouth 3 times daily. Use for 5 days with acuteflare ??? betamethasone dipropionate (DIPROLENE) 0.05 % Ointment Apply topically 2 times daily. ??? Calcitriol 3 mcg/gram Ointment Apply 1 Film topically 2 times daily. ??? FOLIC ACID ORAL Take by mouth daily. ??? METHOTREXATE SODIUM, PF, INJ Inject 0.4 mg as directed once a week. Self injects in thigh. For arthritits ??? celecoxib (CELEBREX) 100 mg capsule Take 100 mg by mouth daily as needed. ??? levothyroxine (SYNTHROID) 100 mcg tablet Take 175 mcg by mouth daily. Indications: Hypothyroidism ??? amlodipine-benazepril (LOTREL) 5-10 mg per capsule Take 2 capsules by mouth daily. No current facility-administered medications on file prior to visit. Past Medical History: Diagnosis Date ??? Acid reflux ??? Arthritis ??? Injury of left knee 2014 fall at work ??? Psoriasis ??? Psoriatic arthritis ??? Thyroid dysfunction Past Surgical History: Procedure Laterality Date ??? CARPAL TUNNEL RELEASE rt ??? PET SCAN (SCAN) 01/16/2012 PET SCAN performed by RESOURCE, ANESTHESIA-IRIS at [facility] ??? PET SCAN (SCAN) 07/06/2012 PET SCAN performed by Anesthesia-Iris Resource at [facility] ??? PRO LARYNGOSCOPY, DIRCT, OP SCOP, EXC TUMR 12/12/2011 LARYNGOSCOPY, DIRECT, EXCISION OF TUMOR, CORD STRIPPING, MICRO performed by BECKY GANN at [facility] MAIN OR ??? PRO LARYNGOSCOPY, DIRCT, OP SCOPE, BIOPSY 12/12/2011 LARYNGOSCOPY, MICROSCOPE, WITH BIOPSY performed by BECKY GANN at [facility] MA[facility] OR Physical Examination: Vitals: 04/17/17 1416 BP: 135/76 Patient Position: Sitting Pulse: 81 Resp: 18 Temp: 36.5 ??C (97.7 ??F) TempSrc: Oral SpO2: 98% Weight: (!) 103.1 kg (227 lb 3.2 oz) Height: 175.3 cm (5' 9.02) Physical Exam Constitutional: He is oriented to person, place, and time. He appears well- developed and well-nourished. HENT: Visual inspection of OC and OP revealed no evidence of suspicious masses or lesions. Palpation reveals posterior aspect of oral tongue soft without masses or lesions. Dentition in moderate. Moisture moderate. No thrush. Eyes: EOM are normal. Pupils are equal, round, and reactive to light. Neck: No tracheal deviation present. Palpation reveals no adenopathy in cervical, SCLV, ICLV chance basins. He has fibrosis of the left neck that is moderate, less so on the right neck. He has no tenderness to palpation along the SCLV basin and up to level II of the left neck. Neurological: He is alert and oriented to person, place, and time. No cranial nerve deficit. Skin: Skin is warm and dry. Psychiatric: He has a normal mood and affect. His behavior is normal. Procedure: Flexible laryngoscopy was performed. The right naris was anesthetized with aerosolized lidocaine, and the laryngoscope was passed without difficulty. The nasopharynx examination revealed no suspicious masses or lesions. The oropharynx, larynx, and piriform sinuses were visualized and were without masses or lesions. The vocal cords apposed without difficulty. There was was mild edema ofthe supraglottic larynx. Interval Imaging: none Assessment/Plan: ?? Squamous cell carcinoma of the BOT ?? Disease Status: MARCO ?? KPS: 80% ?? Radiation toxicity: ?? Xerostomia: Moderate, using water/biotene to assist ?? Dysphagia: denies gary dysphagia. Tolerating most foods, primary limitation is xerostomia. ?? Pain: Resolved ?? Fibrosis/Edema: significant and bothersome along left neck and now right neck. Right neck pain severe, but now after nerve block tolerable. Still doing exercises, has had PT to modest effect. Pent/Vit E not helpful. ?? Shoulder pain/arm parethesias/LUE weakness: Stable. He has a prior injury of that shoulder that was associated with weakness and altered sensation, and has been evaluated by Neurology/Neurosurgeryand EMG demonstrated neuropathy ?? Thyroid: TSH checked and managed by Dr. Alves. ?? Dental: RTOG dental Grade 1, good dental care, using Fluoride ?? Summary: at this point he is MARCO. 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 ?? Arthritis: psoriatic arthritis, managed by Rheumatology. ?? Left Knee Pain: continuing PT and steroid injections ?? FU: follow up with radiation oncology per [facility] algorithm documented in this encounter Plan of Treatment Upcoming Encounters Date Type Department Care Team (Late st Contact Info) Description 05/24/2025 11:00 AM EDT Office Visit Radiation Oncology at [address] [phone] Jesse Mcmahan MD [facility] [place] [address] documented as of this encounter Visit Diagnoses Diagnosis Cancer of base of tongue Malignant neoplasm of base of tongue documented in this encounter Administered Medications Inactive Administered Medications - up to 3 most recent administrations Medication Order MAR Action Action Date Dose Rate Site lidocaine (XYLOCAINE) 2 % jelly Topical (Top), ONCE, On Thu04/17/17 at 0915, 1 dose, Prior to flexible nasopharyngoscopy. Given 04/17/2017 2:35 PM EDT lidocaine (XYLOCAINE) 4 % (40 mg/mL) external solution 10 mL 10 mL, Nasal, ONCE, On Thu04/17/17 at 0915, 1 dose, Premedication prior to flexible nasopharyngoscopy. Given 04/17/2017 2:30 PM EDT 10 mLs documented in this encounter Care Teams Delivery Assistant Relationship Specialty Start Date End Date Bj Alves MD [address] [place] [phone] PCP - General 06/25/10 04/02/23 documented as of this encounter
--- OUTSIDE RECORDS SUMMARY | 2024-08-01 15:28 | XMS_ITS | Encounter Summary ---
Author Organization [facility] [place] [address] Care Team Providers Care Supervisor Polishing Name Role Phone Bj Alves MD Primary Care Provider [phone] Encounter Details Date Type Department Care Team (Late Contact Info) Description 03/20/2015 Orders Only [place] [phone] Shannan Johnson APRN Head and neck cancer Social History Tobacco Use Types Packs/Day Years [...] AM EDT Office Visit Radiation Oncology at [address] [phone] Jesse Mcmahan MD [facility] [place] [address] documented as of this encounter Visit Diagnoses Diagnosis Head and neck cancer Malignant neoplasm of head, face, and neck documented in this encounter Care Teams Supervisor Polishing Relationship Specialty Start Date End Date Bj Alves MD [address] [place] [phone] PCP - General 06/25/10 04/02/23 documented as of this encounter
--- OUTSIDE RECORDS SUMMARY | 2024-08-01 15:28 | XMS_ITS | Encounter Summary ---
Author Organization Formerly [facility] [address] Care Team Providers Care Intelligence Chief Name Role Phone Bj Alves MD Primary Care Provider [phone] Encounter Details Date Type Department Care Team (Late st Contact Info) Description 07/21/2016 Telephone [place] [phone] Shannan Johnson APRN Social History Tobacco Use Types Packs/Day Years [...] encounter Miscellaneous Notes * Telephone Encounter - Shannan Johnson APRN - 07/21/2016 1:43 PM EST Patient returning provider's call to him to inquire regarding his sore throat. He indicates that itis improving but there is persistent discomfort. We will arrange for Dr Mcmahan to do an endoscopic exam whenever he is in [facility]. He is not wanting imaging currently due to not wanting more than necessary XR exposure and since the symptom is mild. Patient is in agreement with the plan to see Dr Mcmahan. documented in this encounter Plan of Treatment Upcoming Encounters Date Type Department Care Team (Late st Contact Info) Description 05/24/2025 11:00 AM EDT Office Visit Radiation Oncology at [address] [phone] Jesse Mcmahan MD [facility] [place] [address] documented as of this encounter Visit Diagnoses Not on filedocumented in this encounter Care Teams Intelligence Chief Relationship Specialty Start Date End Date Bj Alves MD [address] [place] [phone] PCP - General 06/25/10 04/02/23 documented as of this encounter
--- OUTSIDE RECORDS SUMMARY | 2024-08-01 15:28 | XMS_ITS | Encounter Summary ---
Author Organization [facility] [place] [address] Care Team Providers Care Almond Pan Finisher Name Role Phone Bj Alves MD Primary Care Provider [phone] Reason for Visit * Reason Comments Other Encounter Details Date Type Department Care Team (Late st Contact Info) Description 06/02/2014 Telephone Radiation Oncology at [address] [phone] Khoi Edwards, RN Social History Tobacco Use Types Packs/Day [...] encounter Miscellaneous Notes * Telephone Encounter - Khoi Soto RN - 06/02/2014 5:05 PM EDT Message copied by KHOI SOTO on ThuJun 02, 2014 5:05 PM ------ Message from: MARIA GUADALUPE JALLOH Created: ThuJun 02, 2014 2:13 PM Regarding: Please Call Salvador Hewitt would like someone to call him back, and read his CT results to him. He can be reached at [phone] Maria Guadalupe Toussaint I spoke to patient and he was able to get the CT report from his PCP. He is relieved to know that there is no evidence of caner in his throat. I informed him that Shannan CHEUNG is away this week and I will make her aware of this. Her note mentions a PT referral if the CT scan is negative. He confirms this understanding and will wait to hear back from us on this arrangement. documented in this encounter Plan of Treatment Upcoming Encounters Date Type Department Care Team (Late st Contact Info) Description 05/24/2025 11:00 AM EDT Office Visit Radiation Oncology at [address] [phone] Jesse Mcmahan MD [facility] [place] [address] documented as of this encounter Visit Diagnoses Not on filedocumented in this encounter Care Teams Almond Pan Finisher Relationship Specialty Start Date End Date Bj Alves MD [address] [place] [phone] PCP - General 06/25/10 04/02/23 documented as of this encounter
--- OUTSIDE RECORDS SUMMARY | 2024-08-01 15:28 | XMS_ITS | Encounter Summary ---
Author Organization [facility] Javier [place] [address] Care Team Providers Care Professor Of Business Administration Name Role Phone Bj Alves MD Primary Care Provider [phone] Encounter Details Date Type Department Care Team (Late st Contact Info) Description 08/22/2016 9:30 AM EST Office Visit Radiation Oncology at [address] [phone] Jesse Mcmahan MD [facility] DR [place] [address] Cancer of base of tongue Social History [...] Sign Reading Time Taken Comments Blood Pressure 163/97 08/22/2016 9:29 AM EST Pulse 70 08/22/2016 9:29 AM EST Temperature 36.4 ??C (97.5 ??F) 08/22/2016 9:29 AM ES T Respiratory Rate 18 08/22/2016 9:29 AM EST Oxygen Saturation 99% 08/22/2016 9:29 AM EST Inhaled Oxygen Concentration - - Weight 103 kg (227 lb) 08/22/2016 9:29 AM EST Height - - Body Mass Index 33.62 05/12/2013 2:49 PM EDT documented in this encounter Progress Notes * Jesse Mcmahan MD - 08/22/2016 9:30 AM EST Radiation Oncology Follow Up [...] Staging: ?? 12/09/11 CT H&N with contrast ([facility]): Mixed attenuation mass with lare low density areas suggesting necrotic change present deep to anterior aspect L SCM. Mass smoothly marginated, max 3.3 x 5.2 cm. ?? 11/27/11 PET-CT ([facility]): Despite premedication, severe claustrophobia allowed this can [...] ??? 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 DIFFICULT AIRWAY [id number] ??? Dysphagia, unspecified 787.20 Interval History: Sebastian Wyatt returns for routine follow up having completed radiotherapy approximately 4 years 3 months prior. Currently he notes the following symptoms: Symptom Description Ongoing Intervention Dysphagia Most foods tolerable, difficulty with chunkier foods, sock drier foods. Not seeing INVESTIGATIONS CHIEF at thistime. Odynophagia Currently no pain, pain resolved from prior visit with CP 07/2016. Uses Celebrex minimally Trismus Stable limitation, doing exercises. PT exercises Weight Loss Stable weight Diet Modifications Eating most foods, limited by pain associated with moderate dysgeusia and significant xerostomia Neck Symptoms ?? Stable, bothersome L shoulder pain and numbness associated with the ulnar nerve. No improvement. Exacerbated by activity such as driving. Neurosurgical evaluation and MRI indicated no good surgical options. Neurology: EMG indicates neuropathy. ?? Increased stiffness of left neck present, constant, limiting motion, associated with sharp severe left sided neck pain, typically lasting a few minutes but increased in frequency. Physical therapyhas not helped significantly but does PT at home. Dental Issues Tooth recently cracked, may require extraction. Following with dentistry, using [place] toothpaste Otalgia/Referred Pain Intermittent tinnitus. Xerostomia Moderate to severe xerostomia, dysgeusia still moderate. Other Pain Pain associated knees, ankles and shoulders due to psoriatic arthritis. Stable. MTX, prednisone Energy modest. Knee surgery on left knee due to work related injury, continued difficulty with walking. He retired last June. No Known Allergies Current Outpatient Prescriptions on File Prior to Visit Medication Sig Dispense Refill ??? pentoxifylline (TRENTAL) 400 mg Tablet Sustained Release Take 1 tablet by mouth 3 times daily (with meals). 270 tablet 2 ??? FOLIC ACID ORAL Take by mouth daily. ??? VITAMIN K2 ORAL Take by mouth. ??? cholecalciferol, Vitamin D3, 400 unit tablet [...] Take 1 capsule by mouth daily. ??? B Complex-Vitamin C-Folic Acid (NEPHROCAP) 1 mg capsule Take 1 capsule by mouth daily. ??? ascorbic acid (VITAMIN C) 500 mg tablet Take 500 mg by mouth daily. No current facility-administered medications on file prior to visit. Past Medical History Diagnosis Date ??? Acid reflux ??? Arthritis ??? Injury of left knee 2014 fall at work ??? Psoriasis ??? Psoriatic arthritis ??? Thyroid dysfunction Past Surgical History Procedure Laterality Date ??? Carpal tunnel release rt ??? Pro laryngoscopy, dirct, op scope, biopsy 12/12/2011 LARYNGOSCOPY, MICROSCOPE, WITH BIOPSY performed by BECKY GANN at [facility] OR ??? Pro laryngoscopy, dirct, op scop, exc tumr 12/12/2011 LARYNGOSCOPY, DIRECT, EXCISION OF TUMOR, CORD STRIPPING, MICRO performed by BECKY GANN at [facility] OR ??? Scan doc: pet scan 01/16/2012 PET SCAN performed by LES REYNOLDS at [facility] ??? Scan doc: pet scan 07/06/2012 PET SCAN performed by Anesthesia-Iris Reynolds at [facility] Physical Examination: There were no vitals filed for this visit. Physical Exam Constitutional: He is oriented to person, place, and time. He appears well- developed and well-nourished. HENT: Visual inspection of OC and OP revealed no evidence of suspicious masses or lesions. Palpation reveals posterior aspect of oral tongue soft without masses or lesions. Dentition in moderate repair with one cracked tooth. Moisture moderate. No thrush. Eyes: EOM are [...] were visualized and were without masses or lesionThe vocal cords apposed without difficulty. There was was mild edema of the supraglottic larynx. Interval Imaging: none Assessment/Plan: ?? Squamous cell carcinoma of the BOT ?? Disease Status: MARCO ?? KPS: 80% ?? Radiation toxicity: ?? Xerostomia: Moderate, using water/biotene to assist ?? Dysphagia: denies gary dysphagia. Tolerating most foods, primary limitation is xerostomia. ?? Pain: Resolved ?? Fibrosis/Edema: significant and bothersome along left neck, still doing exercises, has had PT tomodest effect. Pent/Vit E not helpful. ?? Fatigue: still significant, compounded by poor sleep ?? Shoulder pain/arm parethesias/LUE weakness: Stable. 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 ?? Arthritis: psoriatic arthritis, managed by Rheumatology. Continuing on MTX and prednisone ?? Left Knee Pain: continuing PT and steroid injections ?? 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 Given 08/22/2016 9:45 AM EST lidocaine (XYLOCAINE) 4 % (40 mg/mL) external solution 10 mL 10 mL, Nasal, ONCE, On Thu08/22/16 at 1000, 1 dose, Premedication prior to flexible nasopharyngoscopy. Given 08/22/2016 9:40 AM EST 10 mLs documented in this encounter Care Teams Professor Of Business Administration Relationship Specialty Start Date End Date Bj Alves MD [address] [place] [phone] PCP - General 06/25/10 04/02/23 documented as of this encounter
--- OUTSIDE RECORDS SUMMARY | 2024-08-01 15:28 | XMS_ITS | Encounter Summary ---
Author Organization Formerly [facility] Javier stephens [place] [address] Care Team Providers Care Watch Inspector Final Movement Name Role Phone Ash Hernandez MD Primary Care Provider [phone] Reason for Visit * Reason Comments Radiation Follow-up Encounter Details Date Type Department Care Team (Late st Contact Info) Description 12/16/2013 11:00 AM EDT Follow-Up Radiation Oncology at [address] [phone] Jesse Mcmahan MD [facility] [place] [address] Cancer of base of tongue (Primary Dx) Discharge Disposition: Home Social History Tobacco Use [...] Sign Reading Time Taken Comments Blood Pressure 124/87 12/16/2013 10:00 AM EDT Pulse - - Temperature 36.6 ??C (97.9 ??F) 12/16/2013 10:00 AM E DT Respiratory Rate 18 12/16/2013 10:00 AM EDT Oxygen Saturation 100% 12/16/2013 10:00 AM EDT Inhaled Oxygen Concentration - - Weight 93 kg (205 lb) 12/16/2013 10:00 AM EDT Height - - Body Mass Index 30.36 05/12/2013 2:49 PM EDT documented in this encounter Progress Notes * Provider, Scanning - 02/27/2014 4:40 PM EDT * Jesse Mcmahan MD - 12/16/2013 11:16 AM EDT Radiation Oncology Follow Up Note Patient Name: Sebastian Wyatt Primary MD: ASH HERNANDEZ MD Referring MD: Ash Hernandez Other Involved Physicians: Butch Catalan Patient Active [...] Staging: ?? 12/09/11 CT H&N with contrast ([facility]): Mixed attenuation mass with lare low density areas suggesting necrotic change present deep to anterior aspect L SCM. Mass smoothly marginated, max 3.3 x 5.2 cm. ?? 11/27/11 PET-CT ([facility]): Despite premedication, severe claustrophobia allowed this can [...] ??? 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 DIFFICULT AIRWAY [id number] ??? Dysphagia, unspecified 787.20 Interval History: Sebastian Wyatt returns for routine follow up having completed radiotherapy approximately 1 year 9 months prior. Currently he notes the following symptoms: Symptom Description Ongoing Intervention Dysphagia Most foods tolerable, difficulty with chunkier foods, snuff drier foods. Not seeing GROWTH HACKER at thistime. Odynophagia Pain occurs primarily with swallowing, especially with dry foods; he does get frequent and significant irritation due to food hanging up accompanied by pain. Pain Using minimal pain medication as he does not feel that it is very helpful. Celebrex, not using narcotics as the side effectsare not worth the modest benefit. Trismus Stable, doing exercises. . PT exercises Weight Loss Stable weight Diet Modifications Eating most foods, limited by pain associated with spicy foods as well as dysgeusia and xerostomia Neck Symptoms L shoulder pain and numbness associated with the ulnar nerve continued progressive. Exacerbated by activity such as driving. Physical therapy has not helped significantly. Recent evaluation by neurosurgery and MRI indicate no good surgical options. Neurology: EMG indicates neuropathy.Increased stiffness of left neck also present, now constant, limiting motion, associated with pain 3-6/10. Dental Issues None Following with dentistry Otalgia/Referred Pain Right ear pain present occasionally Xerostomia Moderate to severe xerostomia, dysgeusia moderate. Other Pain Pain associated knees, ankles and shoulders due to psoriatic arthritis. Progressive. MTX, prednisone He continues to have stable high level fatigue, progressive towards the end of the week, which eventually limits his activities. Recent knee surgery on left knee due to work related injury. Continueddifficulty with sleep, unable to tolerate CPAP due to xerostomia and associated pain. No Known Allergies Current Outpatient Prescriptions on [...] Take 10 mg by mouth daily. ??? [DISCONTINUED] ergocalciferol (VITAMIN D) 50,000 unit capsule Take 50,000 Units by mouth daily. ??? [DISCONTINUED] ergocalciferol (ERGOCALCIFEROL) 50,000 unit capsule Take 50,000 Units by mouth once a week. No current facility-administered medications on file prior to visit. Past Medical History Diagnosis Date ??? Acid reflux ??? Thyroid dysfunction ??? Arthritis ??? Psoriasis Past Surgical History Procedure Date ??? Carpal tunnel release rt ??? Laryngoscopy, dirct, op scope, biopsy 12/12/2011 LARYNGOSCOPY, MICROSCOPE, WITH BIOPSY performed by BECKY GANN at [facility] OR ??? Laryngoscopy, dirct, op scop, exc tumr 12/12/2011 LARYNGOSCOPY, DIRECT, EXCISION OF TUMOR, CORD STRIPPING, MICRO performed by BECKY GANN at [facility] OR ??? Scan doc: pet scan 01/16/2012 PET SCAN performed by RODOLFO, ANESTHESIA-IRIS at [facility] ??? Scan doc: pet scan 07/06/2012 PET SCAN performed by Anesthesia-Iris Resource at [facility] Physical Examination: Filed Vitals: 12/16/13 1000 BP: 124/87 Temp: 36.6 ??C (97.9 ??F) Resp: 18 Weight: 92.987 kg (205 lb) SpO2: 100% Physical Exam Constitutional: He is oriented to person, place, and time. He appears well- developed and well-nourished. HENT: Visual inspection of OC and OP revealed no evidence of suspicious masses or lesions. Palpation reveals posterior aspect of oral tongue soft without masses or lesions. Dentition in good repair. Moisture moderate. No thrush. Eyes: EOM are normal. Pupils are equal, round, and reactive to light. Neck: No tracheal deviation present. Palpation reveals no adenopathy in cervical, SCLV, ICLV chance basins. He has fibrosis of the left neck that is moderate, less so on the right neck. He has significant tenderness to palpation along the SCLV basin and up to level II of the left neck, without suspicious masses or lesions. Musculoskeletal: Left shoulder droops at baseline. Left secretarial stenographer < right secretarial stenographer. Flex/ex right elbow and shoulder 5/5 left 4-/5. Neurological: He is alert and oriented to [...] visualized and were without masses or lesions. No gary mucositis. The vocal cords apposed without difficulty. There was was mild edema of the supraglottic larynx. Interval Imaging: No interval imaging Assessment/Plan: Sebastian Wyatt is now ~ 1 year 9 months out from definitive RT + cetuximab on RTOG 1016: His KPS is 90% ?? Squamous cell carcinoma of the BOT ?? Clinically: clinically he has MARCO. ?? Radiographically: no interval imaging ?? Radiation toxicity: ?? Xerostomia: Moderate, using water/biotene to assist ?? Dysphagia: denies gary dysphagia. Tolerating most foods, primary limitation is pain and xerostomia. ?? Pain: associated with swallowing, is not interested in pain medication at this time, tolerating.Pain increasing associated with left neck, and now limited motion despite doing home PT. Using celebrex. ?? Fibrosis/Edema: worsening along left neck, still doing exercises, now limiting motion => [facility] ?? Fatigue: still significant, compounded by poor sleep ?? Shoulder pain/arm parethesias/LUE weakness: slightly worse. He has a prior injury of that shoulder that was associated with weakness and altered sensation. 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 He has now seen neurology and neurosurgery, and undergone PT, and at this point he has been offered a procedure to decompress that area but is not interested. ?? Dental: RTOG dental Grade 1 ?? Hypothyroid: managed by PCP at this time ?? Arthritis: psoriatic arthritis, managed by Rheumatology. Continuing on MTX and prednisone ?? FU: follow up with radiation oncology per [facility] algorithm documented in this encounter Miscellaneous Notes * Miscellaneous - Provider, Valerie - 12/16/2013 11:41 AM EDT documented in this encounter Plan of Treatment Upcoming Encounters Date Type Department Care Team (Late st Contact Info) Description 05/24/2025 11:00 AM EDT Office Visit Radiation Oncology at [address] [phone] Jesse Mcmahan MD [facility] [place] [address] documented as of this encounter Visit Diagnoses Diagnosis Cancer of base of tongue- Primary Malignant neoplasm of base of tongue documented in this encounter Administered Medications Inactive Administered Medications - up to 3 most recent administrations Medication Order MAR Action Action Date Dose Rate Site lidocaine (XYLOCAINE) 2 % jelly Topical, ONCE, On Thu12/16/13 at 1100, 1 dose, Prior to flexible nasopharyngoscopy. Given 12/16/2013 11:25 AM EDT lidocaine (XYLOCAINE) 4 % external solution 10 mL 10 mL, INTRANASAL, ONCE, On Thu12/16/13 at 1100, 1 dose, Premedication prior to flexible nasopharyngoscopy. Given 12/16/2013 11:20 AM EDT 10 mLs documented in this encounter Care Teams Watch Inspector Final Movement Relationship Specialty Start Date End Date Ash Hernandez MD [address] [place] [phone] PCP - General 06/25/10 04/02/23 documented as of this encounter
--- OUTSIDE RECORDS SUMMARY | 2024-08-01 15:28 | XMS_ITS | Encounter Summary ---
Author Organization Formerly [facility] [place] [address] Care Team Providers Care Data Coder Operator Name Role Phone Bj Alves MD Primary Care Provider [phone] Reason for Visit * Reason Comments Radiation Follow-up cancer base of tongu e Encounter Details Date Type Department Care Team (Late st Contact Info) Description 08/24/2014 9:45 AM EST Follow-Up Radiation Oncology at [address] [phone] Shannan Johnson, WEB DEVELOPER Cancer of base of tongue Discharge Disposition: [...] Sign Reading Time Taken Comments Blood Pressure 152/103 08/24/2014 9:33 AM EST Pulse 76 08/24/2014 9:33 AM EST Temperature 36.6 ??C (97.9 ??F) 08/24/2014 9:33 AM ES T Respiratory Rate 18 08/24/2014 9:33 AM EST Oxygen Saturation 97% 08/24/2014 9:33 AM EST Inhaled Oxygen Concentration - - Weight 97.1 kg (214 lb) 08/24/2014 9:33 AM EST Height - - Body Mass Index 31.7 05/12/2013 2:49 PM EDT documented in this encounter Progress Notes * Shannan Johnson, WEB DEVELOPER - 08/24/2014 10:00 AM EST Subjective: Patient ID: Sebastian Wyatt is a [...] past year. Stagin12/09/11 CT H&N with contrast ([facility]): Mixed attenuation mass with lare low density areas suggesting necrotic change present deep to anterior aspect L SCM. Mass smoothly marginated, max 3.3 x 5.2 cm. 11/27/11 PET-CT ([facility]): Despite premedication, severe [...] cetuximab arm. Received 70 Gy completed 04/06/12 ONCBCN ONCOLOGY (AMB) 02/17/2012 02/24/2012 03/02/2012 03/09/2012 cetuximab (ERBITUX) IV 900 mg 563 mg 563 mg 563 mg ONCBCN ONCOLOGY (AMB) 03/17/2012 03/23/2012 03/30/2012 04/06/2012 cetuximab (ERBITUX) IV 563 mg 563 mg 563 mg 563 mg Treatment summary: Head and Neck Cancer Notes 08/24/2014 Current disease status Observation/MARCO Presenting symptoms: odynophagia Local specialist evaluation evaluation by ENT at [facility] Diagnostic method CT of neck 11/27/2011 Diagnostic biopsy location: [facility]/Leb by Dr Rio Gann Date of Cancer Diagnosis: 12/12/2011 Date of EUA: 12/12/2011 EUA location: [facility] CT date: 11/27/2011 PET/CT date: 11/27/2011--limited study [...] ??? Dysphagia, unspecified 787.20 ??? 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 Carpal tunnel release rt ??? Laryngoscopy, dirct, op scope, biopsy 12/12/2011 LARYNGOSCOPY, MICROSCOPE, WITH BIOPSY performed by RIO GANN at [facility] MAIN OR ??? Laryngoscopy, dirct, op scop, exc tumr 12/12/2011 LARYNGOSCOPY, DIRECT, EXCISION OF TUMOR, CORD STRIPPING, MICRO performed by RIO GANN at [facility] MAIN OR ??? Scan doc: pet scan 01/16/2012 PET SCAN performed by LES REYNOLDS at [facility] ??? 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 Lives near [facility] with , 13yo daughter, 2 horses, 2 dogs. Advance Directive: Not on file. See advance care planning note Interval History: Sebastian Wyatt is being seen in clinic for scheduled follow up. He completed radiotherapy two years and four months ago. He also has been diagnosed with psoriatic arthritis And is being followed by Aircraft Detail Draftsperson every three months. He continues on MTX but no longer on prednisone. Currently he notes the following symptoms: Symptom Description Ongoing Intervention Dysphagia He reports stable choking when swallowing if he is not careful PART MAKER evaluation was done--see scanned documents No new intervention Odynophagia Chronic pain associated with eating, using no pain medication as he does not feel that it is necessary Not taking any medication for pain Trismus Improving, doing exercises. PT exercises --Still going to [facility] Weight Loss 185 => 214 today -- Diet Modifications Eating most foods unchanged Neck [...] . Rgular dental follow up with no issues Following with dentistry --he sees his dentist every six months. He had no cavities at his last visit. 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 He is on leave after having a fall at work that caused major trauma to his left leg. He continues to have severe pain 8/10 to his knee. He will be seeing his surgeonnext week for follow up of this. He does not take any pain medication and does not want to start. He continues to have difficulty with fatigue, insomnia. He has sleep apnea as well and does not use CPAP. His PCP has referred him back to the sleep clinic for evaluation. His PCP has been monitoring his TSH. He reports occ lightheadedness. He does indicate that a carotid duplex has been done in the past. Review of Systems Constitutional: Positive for fatigue. [...] Eyes: Negative. Tearing of eyes--dryness resolved Respiratory: Positive for shortness of breath. Negative for cough, chest tightness and wheezing. Cardiovascular: Negative. Negative for chest pain and leg swelling. Gastrointestinal: Negative. Genitourinary: Negative. Musculoskeletal: Positive for joint swelling and arthralgias. Left shoulder very painful and not able to lift arm above shoulder level. Left knee pain due to injury several months ago. Skin: Negative. Neurological: Negative for tremors and weakness. Balance is difficult when walking on uneven surfaces and it creates pain involving his legs Psychiatric/Behavioral: Positive for sleep disturbance. Negative for dysphoric mood. The patient isnot nervous/anxious. Filed Vitals: 08/24/14 0933 BP: 152/103 Pulse: 76 Temp: 36.6 ??C (97.9 ??F) TempSrc: Oral Resp: 18 Weight: 97.07 kg (214 lb) SpO2: 97% Objective: Physical Exam Constitutional: He is oriented [...] exhibits no discharge. No scleral icterus. Neck: No tracheal tenderness present. Carotid bruit is not present. Decreased range of motion present. No thyroid mass present. Cardiovascular: Normal rate, regular rhythm and [...] Vitals reviewed. Laboratory: PCP monitoring TSH and specimen boss evaluates CBC and CMP every three months [...] which he continues at home.CT scan of neck 06/01/2014 did not show any disease progression. Patient will call if symptoms worsen. Pain: pain involving his neck, leg and from psoriatic arthritis. He has been started on methotrexate for his psoriatic arthritis pain. He prefers to not use pain medication. Pain with swallowing mildly increased-ongoing monitoring. Hypothyroidism: PCP is now managing his hypothyroidism We will see patient again as per RTOG follow up. 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
--- OUTSIDE RECORDS SUMMARY | 2024-08-01 15:28 | XMS_ITS | Encounter Summary ---
Author Organization Formerly [facility] [address] Care Team Providers Care Chain Builder Loom Control Name Role Phone Bj Alves MD Primary Care Provider [phone] Encounter Details Date Type Department Care Team (Late Contact Info) Description 01/11/2014 Orders Only [place]ology [place] [phone] Butch Catalan MD [address] [place] [address] [place] [address] Head and neck cancer (Primary Dx) Social History Tobacco Use Types [...] EDT Office Visit Radiation Oncology at [address] [phone] Jesse Mcmahan MD [facility] [place] [address] documented as of this encounter Visit Diagnoses Diagnosis Head and neck cancer- Primary Malignant neoplasm of head, face, and neck documented in this encounter Care Teams Chain Builder Loom Control Relationship Specialty Start Date End Date Bj Alves MD [address] [place] [phone] PCP - General 06/25/10 04/02/23 documented as of this encounter
--- OUTSIDE RECORDS SUMMARY | 2024-08-01 15:28 | XMS_ITS | Encounter Summary ---
Author Organization [facility] [place] [address] Care Team Providers Care Group Managing Director Name Role Phone Bj Alves MD Primary Care Provider [phone] Encounter Details Date Type Department Care Team (Late st Contact Info) Description 06/04/2018 9:30 AM EDT Office Visit Radiation Oncology at [address] [phone] Jesse Mcmahan MD [facility] [place] [address] Cancer of base of tongue Social History [...] Sign Reading Time Taken Comments Blood Pressure 145/78 06/04/2018 9:00 AM EDT Pulse 72 06/04/2018 9:00 AM EDT Temperature 36.5 ??C (97.7 ??F) 06/04/2018 9:00 AM ED T Respiratory Rate 16 06/04/2018 9:00 AM EDT Oxygen Saturation 98% 06/04/2018 9:00 AM EDT Inhaled Oxygen Concentration - - Weight 103.1 kg (227 lb 6.4 oz) 06/04/2018 9:00 AM EDT shoes on Height - - Body Mass Index 33.57 04/17/2017 2:16 PM EDT documented in this encounter Progress Notes * Jesse Mcmahan MD - 06/04/2018 9:30 AM EDT Radiation Oncology Follow Up Note [...] ?? 12/09/11 CT H&N with contrast ([facility]): Mixed attenuation mass with lare low density areas suggesting necrotic change present deep to anterior aspect L SCM. Mass smoothly marginated, max 3.3 x 5.2 cm. ?? 11/27/11 PET-CT ([facility] Despite premedication, severe claustrophobia allowed this can [...] ??? 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 DIFFICULT AIRWAY [id number] ??? Dysphagia, unspecified 787.20 Interval History: Sebastian Wyatt returns for routine follow up having completed radiotherapy approximately 6 years prior. Currently he notes the following symptoms: Symptom Description Ongoing Intervention Dysphagia Most foods tolerable, difficulty with chunkier foods, bobbin drier foods. However, food tends tofeel as though it is stuck in the mid-chest. Not seeing NEWS WIRE PHOTO OPERATOR at this time. Odynophagia Rare Trismus Stable limitation, doing exercises. PT exercises Weight Loss Gain weight secondary to hypothyroidism, now resolved Diet Modifications Eating most foods, with moderate dysgeusia and moderate xerostomia Neck Symptoms Stable, very painful neck & shoulder pain, L > R, stabbing sensation, associated with activity. No improvement. Exacerbated by activity such as driving. He also has mild weaknessof his left hand, sensation of ulnar nerve numbness, waxing/waning. Neurosurgical evaluation and MRI indicated no good surgical options. Neurology: EMG indicates neuropathy. He had nerve block of right / left neck with minor improvement. Altered strength/sensation He early 2018 that he had developed weakness [...] to Visit Medication Sig Dispense Refill ??? aspirin 81 mg Tablet, Delayed Release [...] 1 Film topically 2 times daily. ??? levothyroxine (SYNTHROID) 100 mcg tablet Take 175 mcg by mouth daily. Indications: Hypothyroidism ??? amlodipine-benazepril (LOTREL) 5-10 mg per capsule Take 1 capsule by mouth daily. ??? LORazepam (ATIVAN) 1 mg Tablet Take 1 mg by mouth every 6 hours as needed (insomnia). ??? [DISCONTINUED] amLODIPine (NORVASC) 10 mg Tablet Take 10 mg by mouth. ??? celecoxib (CELEBREX) 100 mg capsule Take 100 mg by mouth daily as needed. No current facility-administered medications on file prior to visit. Past Medical History: Diagnosis Date ??? Acid reflux ??? Arthritis ??? Injury of left knee 2014 fall at work ??? Psoriasis ??? Psoriatic arthritis ??? Thyroid dysfunction Past Surgical History: Procedure Laterality Date ??? CARPAL TUNNEL RELEASE rt ??? LARYNGOSCOPY, DIRECT, EXCISION OF TUMOR, CORD STRIPPING, MICRO (WRVU 4.52) N/A 12/12/2011 Performed by Rio Gann MD at [facility] OR ??? LARYNGOSCOPY, MICROSCOPE, WITH BIOPSY (WRVU 3.55) N/A 12/12/2011 Performed by Rio Gann MD at [facility] OR ??? PERCUTANEOUS GASTROSTOMY N/A 01/09/2012 Performed by Maxi Saavedra MD at [facility] ??? PET SCAN N/A 07/06/2012 Performed by LES REYNOLDS at [facility] ??? PET SCAN N/A 01/16/2012 Performed by LES REYNOLDS at [facility] ??? PET SCAN (SCAN) 01/16/2012 PET SCAN performed by LES REYNOLDS at [facility] ??? PET SCAN (SCAN) 07/06/2012 PET SCAN performed by Anesthesia-Iris Resource at [facility] ??? PRO LARYNGOSCOPY, DIRCT, OP SCOP, EXC TUMR 12/12/2011 LARYNGOSCOPY, DIRECT, EXCISION OF TUMOR, CORD STRIPPING, MICRO performed by RIO GANN at [facility] MAIN OR ??? PRO LARYNGOSCOPY, DIRCT, OP SCOPE, BIOPSY 12/12/2011 LARYNGOSCOPY, MICROSCOPE, WITH BIOPSY performed by RIO GANN at [facility] MAIN OR ??? VENOUS ACCESS PLACEMENT N/A 01/09/2012 Performed by Maxi Saaevdra MD at [facility] Physical Examination: Vitals: 06/04/18 0900 BP: 145/78 Pulse: 72 Resp: 16 Temp: 36.5 ??C (97.7 ??F) SpO2: 98% Weight: 103.1 kg (227 lb 6.4 oz) Physical Exam Constitutional: He [...] Good dentition. Moisture moderate. No thrush. Eyes: EOM are [...] mild edema ofthe supraglottic larynx. Interval Imaging: CT HN w/ contrast 12/25/17: no evidence of recurrence Assessment/Plan: ?? Squamous cell carcinoma of the [...] modest effect. Pent/Vit E not helpful. Discussed possibility of Botox for spasm, will discus with ENT. ?? Shoulder pain/arm parethesias/LUE weakness: Stable. 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 I will investigate the possibility of Botox injections for his neck. We discussed an MRI to further evaluate the CNXII palsy, but as his symptoms have been stable, he has no other concerning findings on imaging and exam, and his severe claustrophobia it was elected to defer. I will see him in 6 months to re-evaluate this finding for continued stability without evidence of other findings concerning for malignancy. ?? Arthritis: psoriatic arthritis, managed by Rheumatology. ?? Left Knee Pain: continuing PT and steroid injections ?? 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 Given 06/04/2018 10:05 AM EDT lidocaine (XYLOCAINE) 4 % (40 mg/mL) external solution 10 mL 10 mL, Nasal, ONCE, On Thu06/04/18 at 1000, 1 dose, Premedication prior to flexible nasopharyngoscopy. Given 06/04/2018 10:00 AM EDT 10 mLs documented in this encounter Care Teams Group Managing Director Relationship Specialty Start Date End Date Bj Alves MD [address] [place] [phone] PCP - General 06/25/10 04/02/23 documented as of this encounter
--- OUTSIDE RECORDS SUMMARY | 2024-08-01 15:28 | XMS_ITS | Encounter Summary ---
Author Organization [facility] [place] [address] Care Team Providers Care Wharfmaster Name Role Phone Bj Alves MD Primary Care Provider Encounter Details Date Type Department Care Team (Late st Contact Info) Description 01/06/2018 Telephone [place] [phone] Shannan Johnson APRN Social History Tobacco Use [...] Telephone Encounter - Shannan Johnson APRN - 01/06/2018 9:27 AM EDT Call from patient wanting to discuss recent imaging. Patient questions were answered to his satisfaction documented in this encounter Plan of Treatment Upcoming Encounters Date Type Department Care Team (Late st Contact Info) Description 05/24/2025 11:00 AM EDT Office Visit Radiation Oncology at [address] [phone] Jesse Mcmahan MD [facility] [place] [address] documented as of this encounter Visit Diagnoses Not on filedocumented in this encounter Care Teams Wharfmaster Relationship Specialty Start Date End Date Bj Alves MD [address] [place] [phone] PCP - General 06/25/10 04/02/23 documented as of this encounter
--- OUTSIDE RECORDS SUMMARY | 2024-08-01 15:28 | XMS_ITS | Encounter Summary ---
Author Organization [facility] [place] [address] Care Team Providers Care Document Review Attorney Name Role Phone Ash Hernandez MD Primary Care Provider [phone] Reason for Visit * Reason Comments Radiation Follow-up Encounter Details Date Type Department Care Team (Late st Contact Info) Description 06/17/2013 1:30 PM EST Follow-Up Radiation Oncology at [address] [phone] Jesse Mcmahan MD [facility] [place] [address] Cancer of base of tongue (Primary Dx) [...] Sign Reading Time Taken Comments Blood Pressure 146/87 06/17/2013 1:00 PM EST Pulse 66 06/17/2013 1:00 PM EST Temperature - - Respiratory Rate - - Oxygen Saturation 97% 06/17/2013 1:00 PM EST Inhaled Oxygen Concentration - - Weight 88.9 kg (196 lb) 06/17/2013 1:00 PM EST Height - - Body Mass Index 29.03 05/12/2013 2:49 PM EDT documented in this encounter Progress Notes * Jesse Mcmahan MD - 06/17/2013 1:16 PM EST Radiation Oncology Follow Up Note [...] 12/09/11 CT H&N with contrast ([facility]): Mixed attenuation mass with lare low density areas suggesting necrotic change present deep to anterior aspect L SCM. Mass smoothly marginated, max 3.3 x 5.2 cm. ?? 11/27/11 PET-CT ([facility]): Despite premedication, severe claustrophobia allowed this can [...] ??? 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 DIFFICULT AIRWAY [id number] ??? Dysphagia, unspecified 787.20 Interval History: Sebastian Wyatt returns for routine follow up having completed radiotherapy approximately 1 year 2 months prior. Currently he notes the following symptoms: Symptom Description Ongoing Intervention Dysphagia Most foods some difficulty, but able to tolerate with liquids, softer foods. Not seeing BENCH MOLDER APPRENTICE at this time. Odynophagia Moderate pain/discomfort associated with mid-neck, ~ 3/10, especially when swallowing. Using minimal pain medication as he does not feel that it is necessary Not using Trismus Improving, doing exercises. PT exercises Weight Loss Stable Diet Modifications Eating most foods, limited by pain associated with spicy foods as well as dysgeusia and xerostomia Neck Symptoms L shoulder pain, slightly worse. This pain extends from the medial SCLV out to the humeral head, is constant, exacerbated by pressure and certain movements. He has intermittent associated paresthesias of the left arm and hand. He also notes increased weakness of that arm, modest, still able to use for activities. Dental Issues None Following with dentistry Otalgia/Referred Pain Right ear pain on a daily basis, escalating from minimal to severe rapidly but then resolving quickly. Intermittent tinnitus. These symptoms are stable since the last visit. Xerostomia Moderate xerostomia, dysgeusia moderate Other Pain Pain associated knees, ankles and shoulders due to psoriatic arthritis. MTX, prednisone He continues to have fatigue, progressive towards the end of the week, which eventually limits his activities. No Known Allergies Current Outpatient Prescriptions on [...] tablet Take 10 mg by mouth daily. Past Medical History Diagnosis Date ??? Acid reflux ??? Thyroid dysfunction ??? Arthritis ??? Psoriasis Past Surgical History Procedure Date ??? Carpal tunnel release rt ??? Laryngoscopy, dirct, op scope, biopsy 12/12/2011 LARYNGOSCOPY, MICROSCOPE, WITH BIOPSY performed by BECKY GANN at [facility] OR ??? Laryngoscopy, dirct, op scop, exc tumr 12/12/2011 LARYNGOSCOPY, DIRECT, EXCISION OF TUMOR, CORD STRIPPING, MICRO performed by BECKY GANN at [facility] OR ??? Scan doc: pet scan 01/16/2012 PET SCAN performed by LES REYNOLDS at [facility] ??? Scan doc: pet scan 07/06/2012 PET SCAN performed by AnesthesiaRay Reynolds at [facility] Physical Examination: There were no vitals filed for this visit. Physical Exam Constitutional: He is oriented to person, place, and time. He appears well- developed and well-nourished. HENT: Visual inspection of OC and OP revealed no evidence of suspicious masses or lesions. Palpation reveals posterior aspect of oral tongue soft without masses or lesions.. Dentition in good repair. Moisture moderate. No thrush. Eyes: EOM are normal. Pupils are equal, round, and reactive to light. Neck: No tracheal deviation present. Palpation reveals no adenopathy in cervical, SCLV, ICLV chance basins. He has fibrosis of the left neck that is moderate, less so on the right neck. He has mild tenderness to palpation along the SCLV basin and up to level II of the left neck, without suspicious masses or lesions. Musculoskeletal: Left tower hand < right tower hand. Flex/ex right elbow and shoulder 5/5 left 4/5. Neurological: He is alert and oriented to [...] supraglottic larynx. Interval Imaging: No interval imaging Assessment: Sebastian Wyatt is now ~ 1 year 2 months out from definitive RT + cetuximab [...] interested in pain medication at this time, tolerating. ?? Fibrosis/Edema: Increasing, most prominent on left neck. He is doing PT exercises at home on a daily basis. ?? Fatigue: Improved, but still significant. ?? Shoulder pain/arm parethesias/LUE weakness: concerning for brachial plexopathy. He did have a large LN in level III of the neck that received full dose RT, and the superior portion of his BP was thus at risk. Other possibilities are related to structural spinal problems. Low suspicion for recurrent malignancy given imaging from 04/2013 and physical exam. Discussed utility of MRI in that if these difficulties are structural there may be options to improve outcomes, although if these are related to BP there are few helpful options. He did not wish an MRI at this time, but if sx progress he will consider. ?? Hypothyroid: managed by PCP at this time ?? Arthritis: psoriatic arthritis, now managed by Rheumatology. Continuing on MTX and prednisone Plan: ?? FU: follow up with radiation oncology per NCC algorithm documented in this encounter Plan of Treatment Upcoming Encounters Date Type Department Care Team (Late st Contact Info) Description 05/24/2025 11:00 AM EDT Office Visit Radiation Oncology at [address] [phone] Jesse Mcmahan MD [facility] [place] [address] documented as of this encounter Visit Diagnoses Diagnosis Cancer of base of tongue- Primary Malignant neoplasm of base of tongue documented in this encounter Care Teams Document Review Attorney Relationship Specialty Start Date End Date Ash Hernandez MD [address] [place] [phone] PCP - General 06/25/10 04/02/23 documented as of this encounter
--- OUTSIDE RECORDS SUMMARY | 2024-08-01 15:28 | XMS_ITS | Encounter Summary ---
Author Organization [facility] [place] [place] [address] Care Team Providers Care Cat Cracker Operator Name Role Phone Bj Alves MD Primary Care Provider Encounter Details Date Type Department Care Team (Late st Contact Info) Description 12/30/2017 Telephone [place] [phone] Shannan Johnson APRN Social History Tobacco Use [...] Telephone Encounter - Shannan Johnson APRN - 12/30/2017 10:33 AM EDT Call to patient to report on his recent CT of the neck The CT does not have any concerning findings. documented in this encounter Plan of Treatment Upcoming Encounters Date Type Department Care Team (Late st Contact Info) Description 05/24/2025 11:00 AM EDT Office Visit Radiation Oncology at [address] [phone] Jesse Mcmahan MD [facility] [address] RADIATION ONCOLOGY [place], [place] [phone] documented as of this encounter Visit Diagnoses Not on filedocumented in this encounter Care Teams Cat Cracker Operator Relationship Specialty Start Date End Date Bj Alves MD [address] [place] [phone] PCP - General 06/25/10 04/02/23 documented as of this encounter
--- OUTSIDE RECORDS SUMMARY | 2024-08-01 15:28 | XMS_ITS | Encounter Summary ---
Author Organization [facility] [place] [address] Care Team Providers Care Production Underwriter Name Role Phone Bj Alves MD Primary Care Provider [phone] Reason for Visit * Reason Comments Radiation Follow-up cancer [facility] Encounter Details Date Type Department Care Team (Late st Contact Info) Description 01/20/2013 1:30 PM EDT Follow-Up Radiation Oncology at [address] [phone] Shannan Johnson, MACHINE CHOCOLATE MOLDER Hypothyroidism (Primary Dx); Dryness of eye; Cancer of base of tongue; Dysphagia Discharge Disposition: Home Social History Tobacco Use [...] Sign Reading Time Taken Comments Blood Pressure 140/90 01/20/2013 1:31 PM EDT Pulse 77 01/20/2013 1:31 PM EDT Temperature 36.4 ??C (97.5 ??F) 01/20/2013 1:31 PM ED T Respiratory Rate 16 01/20/2013 1:31 PM EDT Oxygen Saturation 98% 01/20/2013 1:31 PM EDT Inhaled Oxygen Concentration - - Weight 91.4 kg (201 lb 8 oz) 01/20/2013 1:31 PM EDT Height - - Body Mass Index 27.33 10/18/2012 3:08 PM EDT documented in this encounter Progress Notes * Provider, Scanning - 02/02/2013 7:20 AM EDT * Shannan Johnson, HERBERT - 01/20/2013 1:43 PM EDT Subjective: Patient ID: Sebastian Wyatt [...] past year. Stagin12/09/11 CT H&N with contrast ([facility]): Mixed attenuation mass with lare low density areas suggesting necrotic change present deep to anterior aspect L SCM. Mass smoothly marginated, max 3.3 x 5.2 cm. 11/27/11 PET-CT ([facility] Despite premedication, severe claustrophobia allowed this can [...] ??? 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 DIFFICULT AIRWAY [id number] ??? Dysphagia, unspecified 787.20 Past Surgical History Procedure Date ??? Carpal tunnel release rt ??? Laryngoscopy, dirct, op scope, biopsy 12/12/2011 LARYNGOSCOPY, MICROSCOPE, WITH BIOPSY performed by BECKY GANN at [facility] OR ??? Laryngoscopy, dirct, op scop, exc tumr 12/12/2011 LARYNGOSCOPY, DIRECT, EXCISION OF TUMOR, CORD STRIPPING, MICRO performed by BECKY GANN at [facility] OR ??? Scan doc: pet scan 01/16/2012 PET SCAN performed by LES REYNOLDS at [facility] ??? Scan doc: pet scan 07/06/2012 PET SCAN performed by Anesthesia-Iris Reynolds at [facility] No Known Allergies Current Outpatient Prescriptions on File Prior to Visit Medication Sig Dispense Refill ??? levothyroxine (SYNTHROID) 100 mcg tablet Take 175 mcg by mouth daily. Indications: Hypothyroidism ??? methotrexate 2.5 mg tablet Take by mouth once a week. Can take without regard to food. Call clinic before/prior to starting medication/script. ??? amlodipine-benazepril (LOTREL) 5-10 mg per capsule Take 2 capsules by mouth daily. ??? acetaminophen (TYLENOL) 160 mg/5 mL liquid Take 15 mg/kg/dose by mouth every 4 hours as needed. ??? B Complex-Vitamin C-Folic Acid (NEPHROCAP) 1 [...] Take 10 mg by mouth daily. ??? GLYCERIN (OASIS MOISTURIZING MOUTH MM) by Mucous Membrane route as needed. History Social History ??? 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 Lives near [facility] with , 10yo daughter, 2 horses, 2 dogs. Advance Directive: Not on file Interval History: Sebastian Wyatt returns for routine follow up. He is in clinic with his daughter. He completed radiotherapy approximately 9 months prior. Diagnosed with psoriatic arthritis by Mandrel Maker recently, now on MTX but no longer on prednisone. Currently he notes the following symptoms: Symptom Description Ongoing Intervention Dysphagia No choking or coughing unless eating large volumes quickly Not seeing MIRROR DEPARTMENT SUPERVISOR at this time.but agreeable to swallow study to be done at [facility] Odynophagia Chronic pain associated with eating, often intense, using minimal pain medication as hedoes not feel that it is necessary Oxycodone prn Trismus Improving, doing exercises. PT exercises Weight Loss 185 => 201 today Diet Modifications Eating most foods, limited by pain. Neck Symptoms L shoulder pain, no change. Chronic at some level, intermittent flares. He cannot lift his left arm above the level of his shoulder. He has completed PT Stopped the gabapentin. taste Fluctuates. At times improved and normal but not sustained Dental Issues Some tenderness when flossing, using dental trays Following with dentistry Otalgia/Referred Pain No complaints Xerostomia Improving over time Other Pain Pain associated knees, ankles and shoulders due to psoriatic arthritis. MTX, --prednisone is done He continues to have difficulty with fatigue, insomnia. Fatigue is often profound, unable to stay awake in the afternoons. 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 He does not want to be on disability. He had labs done 12/10 and TSH was increased to 55. His levothyroxine was increased to 175 mcg a bettina couple of days ago. He has not had repeat labs since that time. Review of Systems Constitutional: Positive for fatigue. [...] Some short term memory changes Filed Vitals: 01/20/13 1331 BP: 140/90 Pulse: 77 Temp: 36.4 ??C (97.5 ??F) TempSrc: Oral Resp: 16 Weight: 91.4 kg (201 lb 8 oz) SpO2: 98% KPS: 90 Objective: Physical Exam [...] Judgment and thought content normal. Laboratory: 12/10/2012 TSH 55.4 WBC 7.6 RBC 5.69 HGB 12.2 HCT 37.6 MCV 66.1 MCH 21.4 RDW 17.8 PLAT 215 BASO 1.2 NEUT 74.4 LYMP 14.5 BUN 16 CREAT 0.90 GLU 111 CA 9.2 NA 142 K+ 3.6 CO2 26.9 PROT 7.0 ALB 4.0 BILI 0.5 ALK P 80 ALT 17 AST 30 CRP 0.38 SED -R 4 Assessment and Plan: Cancer base of tongue: MARCO. He has decreasing under the chin fullness. [facility] He is also doing [facility]. Pain: pain is unchanged. He has been started on methotrexate for his psoriatic arthritis pain. He prefers to not use pain medication. Pain with swallowing is less--ongoing monitoring. Hypothyroidism: TSH was elevated at 55.4 in December and levothyroxine was increased to 175 mcg a day. 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 He feels that he is improving. Swallowing: We will arrange for a swallow study to be done at [facility] Dry eye: Rx for lacrilube We will see patient again in one month. He is scheduled to have an appointment with Dr Gann 02/17 and wonders if this could be moved to March after his CT scan. We will discuss with team. documented in this encounter Procedure Notes * Provider, Scanning - 02/21/2013 6:49 PM EDTAssociated Order(s): SCAN DOC: LAB documented in this encounter Plan of Treatment Upcoming Encounters Date Type Department Care Team (Late st Contact Info) Description 05/24/2025 11:00 AM EDT Office Visit Radiation Oncology at [address] [phone] Jesse Mcmahan MD [facility] [place] [address] documented as of this encounter Procedures Procedure Name Priority Date/Time Associated Diagnosis Comments LAB SCAN 02/21/2013 6:49 PM EDT documented in this encounter Results * SCAN DOC: LAB (02/21/2013 6:49 PM EDT) Narrative 02/21/2013 6:49 PM EDT Procedure Note Provider, Scanning - 02/21/2013 6:49 PM EDT Scanning Provider MEDIA MGR SCAN EXT O RDR/RSLT documented in this encounter Visit Diagnoses Diagnosis Hypothyroidism- Primary Unspecified hypothyroidism Dryness of eye Tear film insufficiency, unspecified Cancer of base of tongue Malignant neoplasm of base of tongue Dysphagia Dysphagia, unspecified documented in this encounter Care Teams Production Underwriter Relationship Specialty Start Date End Date Bj Alves MD [address] [place] [phone] PCP - General 06/25/10 04/02/23 documented as of this encounter
--- OUTSIDE RECORDS SUMMARY | 2024-08-01 15:28 | XMS_ITS | Encounter Summary ---
Author Organization [facility] Address [facility] [place] [address] Care Team Providers Care Tire Changer Aircraft Name Role Phone Bj Alves MD Primary Care Provider [phone] Encounter Details Date Type Department Care Team (Late Contact Info) Description 03/08/2015 Orders Only Radiation Oncology at [address] [phone] Shannan Johnson APRN Cancer of head and neck Social History Tobacco Use Types Packs/Day Years [...] EDT Office Visit Radiation Oncology at [address] [phone] Jesse Mcmahan MD [facility] [place] [address] documented as of this encounter Visit Diagnoses Diagnosis Cancer of head and neck documented in this encounter Care Teams Tire Changer Aircraft Relationship Specialty Start Date End Date Bj Alves MD [address] [place] [phone] PCP - General 06/25/10 04/02/23 documented as of this encounter
--- OUTSIDE RECORDS SUMMARY | 2024-08-01 15:28 | XMS_ITS | Encounter Summary ---
[place] [address] Care Team Providers Care Corporate Technical Recruiter Name Role Phone Bj Alves MD Primary Care Provider [phone] Reason for Visit * Reason Comments Skin Check Encounter Details Date Type Department Care Team (Late st Contact Info) Description 02/25/2013 4:00 PM EDT Office Visit Dermatology [address] [facility] [address] [place] [address] Saurav Lua MD [address], [place] [address] Congenital nevus (Primary Dx); Psoriasis Social History Tobacco Use Types Packs/Day Years [...] as of this encounter Progress Notes * Saurav Lua MD - 02/25/2013 4:36 PM EDT Problem: Congenital nevus, right shoulder. 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 His last treatment was about a year ago. At the time, he recalls that the hair of both shoulders, upper chest and back was lost, but it has grown back. He has not noticed any change in the color of the mole itself. It is difficult for him to see, however, being largely on his back. Physical examination reveals a pleasant 57-year-old gentleman who has a large congenital nevus over the right upper back, extending onto his shoulder, but with regular dark brown to black pigmentation and a regular margination and regular texture noted over the entire surface. There are no papules or nodules that are developing, either peripherally or within this, or pigmentary changes, induration, or erythema that would at this point raise suspicion for malignant degeneration. There are no areas that are sore, symptomatic, or pruritic. He does have psoriasis on his elbows in small patch plaques, and also on his back. This has been a longstanding problem. The patient has type IV/V Kendrick pigmentation. Assessment and Plan: 1. Benign congenital nevus, back. a. Reassured patient about the benign appearance of this today. b. Recommend that I see him again in another six months for repeat check and six months again after that, then would likely recommend just p.r.n. followup. 2. Psoriasis. a. Recommend the patient begin clobetasol cream applying on a q. day b.i.d. basis to affected areas, tapering and stopping as psoriasis is controlled, 50 grams dispensed with two refills. Treatment in the past has included DermaZinc spray and betamethasone dipropionate ointment. COPY: Bj Alves M.D. DISHA Salmeron documented in this encounter Plan of Treatment Upcoming Encounters Date Type Department Care Team (Late st Contact Info) Description 05/24/2025 11:00 AM EDT Office Visit Radiation Oncology at [address] [phone] Jesse Mcmahan MD [facility] [place] [address] documented as of this encounter Visit Diagnoses Diagnosis Congenital nevus- Primary Benign neoplasm of skin, site unspecified Psoriasis Other psoriasis documented in this encounter Care Teams Corporate Technical Recruiter Relationship Specialty Start Date End Date Bj Alves MD [address] [place] [phone] PCP - General 06/25/10 04/02/23 documented as of this encounter
--- OUTSIDE RECORDS SUMMARY | 2024-08-01 15:28 | XMS_ITS | Encounter Summary ---
Author Organization [facility] [place] [address] Care Team Providers Care Industrial Hire Sales Assistant Name Role Phone Bj Alves MD Primary Care Provider [phone] Encounter Details Date Type Department Care Team (Late Contact Info) Description 03/10/2013 Orders Only Hematology [place] [phone] Butch Catalan MD [address] [place] [address] [place] [address] Social History Tobacco Use Types Packs/Day Years [...] EDT Office Visit Radiation Oncology at [address] [phone] Jesse Mcmahan MD [facility] [place] [address] documented as of this encounter Procedures Procedure Name Priority Date/Time Associated Diagnosis Comments FILM LIBRARY STORAGE ONLY CT CHEST Routine 03/10/2013 11:33 AM EDT documented in this encounter Results * Film Library- Storage only CT Chest (03/10/2013 11:33 AM EDT) 03/10/2013 11:3 3 AM EDT Narrative RAD - 03/20/2014 7:02 PM EDT This is a non-reportable exam. Procedure Note Deven Alcantar - 03/20/2014 This is a non-reportable exam. Butch Catalan MD [facility] FILM LIBRARY ORD ERABLES [facility] [address] [place] [address] documented in this encounter Visit Diagnoses Not on filedocumented in this encounter Care Teams Industrial Hire Sales Assistant Relationship Specialty Start Date End Date Bj Alves MD [address] [place] [phone] PCP - General 06/25/10 04/02/23 documented as of this encounter
--- OUTSIDE RECORDS SUMMARY | 2024-08-01 15:28 | XMS_ITS | Encounter Summary ---
Author Organization [facility] [place] [address] Care Team Providers Care Procurement Buyer Name Role Phone Ash Hernandez MD Primary Care Provider [phone] Reason for Visit * Reason Comments Radiation Follow-up Encounter Details Date Type Department Care Team (Late st Contact Info) Description 03/17/2014 1:00 PM EDT Follow-Up Radiation Oncology at [address] [phone] Jesse Mcmahan MD [facility] [place] [address] Cancer of base of tongue (Primary Dx) [...] Sign Reading Time Taken Comments Blood Pressure 150/105 03/17/2014 1:18 PM EDT Pulse 66 03/17/2014 1:00 PM EDT Temperature 37 ??C (98.6 ??F) 03/17/2014 1:00 PM EDT Respiratory Rate 20 03/17/2014 1:00 PM EDT Oxygen Saturation 96% 03/17/2014 1:00 PM EDT Inhaled Oxygen Concentration - - Weight - - Height - - Body Mass Index - - documented in this encounter Progress Notes * Jesse Mcmahan MD - 03/17/2014 1:20 PM EDT Radiation Oncology Follow Up Note [...] ?? 12/09/11 CT H&N with contrast ([facility]): Mixed attenuation mass with lare low density areas suggesting necrotic change present deep to anterior aspect L SCM. Mass smoothly marginated, max 3.3 x 5.2 cm. ?? 11/27/11 [place] Despite premedication, severe claustrophobia allowed this can [...] ??? 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 DIFFICULT AIRWAY 422455 ??? Dysphagia, unspecified 787.20 Interval History: Sebastian Wyatt returns for routine follow up having completed radiotherapy approximately 2 years prior. Currently he notes the following symptoms: Symptom Description Ongoing Intervention Dysphagia Most foods tolerable, difficulty with chunkier foods, pearl glue drier foods. Not seeing CRANE ASSEMBLER at thistime. Odynophagia Stable pain occurs primarily with swallowing, especially with dry foods; he does get frequent irritation due to food hanging up accompanied by pain. Using minimal pain medication as he does not feel that it is very helpful. Uses Celebrex minimally Trismus Stable, doing exercises. PT exercises Weight Loss Stable weight Diet Modifications Eating most foods, limited by pain associated with spicy foods as well as dysgeusia and xerostomia Neck Symptoms ?? Slightly progressive L shoulder pain and numbness associated with the ulnar nerve.Exacerbated by activity such as driving. Neurosurgical evaluation and MRI indicate no good surgicaloptions. Neurology: EMG indicates neuropathy. ?? Stable stiffness of left neck still present, now constant, limiting motion, associated with new sharp severe left sided neck pain, typically lasting a minute. This pain started a few months ago. Physical therapy has not helped significantly but does PT at home. Dental Issues None Following with dentistry Otalgia/Referred Pain Left ear pain present occasionally. Intermittent tinnitus. Xerostomia Moderate to severe xerostomia, dysgeusia still moderate. Other Pain Pain associated knees, ankles and shoulders due to psoriatic arthritis. Progressive. MTX, prednisone He continues to have stable high level fatigue, progressive towards the end of the week, which eventually limits his activities. Knee surgery on left knee due to work related injury, continued difficulty with walking. Continued difficulty with sleep, unable to tolerate CPAP due [...] 10 mg by mouth daily. ??? [DISCONTINUED] cholecalciferol, Vitamin D3, 400 unit tablet Take 400 Units by mouth daily. Past Medical History Diagnosis Date ??? Acid reflux ??? Thyroid dysfunction ??? Arthritis ??? Psoriasis Past Surgical History Procedure Date ??? Carpal tunnel release rt ??? Laryngoscopy, dirct, op scope, biopsy 12/12/2011 LARYNGOSCOPY, MICROSCOPE, WITH BIOPSY performed by BECKY GANN at [facility] OR ??? Laryngoscopy, dirct, op scop, exc tumr 12/12/2011 LARYNGOSCOPY, DIRECT, EXCISION OF TUMOR, CORD STRIPPING, MICRO performed by BECKY GANN at [facility] OR ??? Scan doc: pet scan 01/16/2012 PET SCAN performed by RODOLFO ANESTHESIA-IRIS at [facility] ??? Scan doc: pet scan 07/06/2012 PET SCAN performed by Anesthesia-Iris Borden at [facility] Physical Examination: Filed Vitals: 03/17/14 1300 03/17/14 1318 BP: 137/101 150/105 Pulse: 66 Temp: 37 ??C (98.6 ??F) TempSrc: Oral Resp: 20 SpO2: 96% Physical Exam Constitutional: He is oriented to [...] Musculoskeletal: Left shoulder droops at baseline. Left cuffing machine operator < right cuffing machine operator. Flex/ex right elbow and shoulder 5/5 left [...] edema of the supraglottic larynx. Interval Imaging: I have viewed the imaging, the report is not currently available 03/07/14 CT chest: MARCO Assessment/Plan: Sebastian Wyatt is now ~2 years out from definitive RT + cetuximab on RTOG 1016: His KPS is 80% ?? Squamous cell carcinoma of the BOT ?? Clinically: clinically he has new onset of pain in his left neck associated with evolving fibrosis. The pain is sharp, very brief, and occurs occasionally. His exam reveals fibrotic changes without any discrete masses. ?? Radiographically: Chest CT MARCO ?? Radiation toxicity: ?? Xerostomia: Moderate, using water/biotene to assist ?? Dysphagia: denies gary dysphagia. Tolerating most foods, primary limitation is pain and xerostomia. ?? Pain: associated with swallowing, is not interested in pain medication at this time, tolerating.Pain increasing associated with left neck, and now limited motion despite doing home PT. Using celebrex. ?? Fibrosis/Edema: worsening along left neck, still doing exercises, has had PT to modest effect ?? Fatigue: still significant, compounded by poor sleep ?? Shoulder pain/arm parethesias/LUE weakness: again slightly worse. He has a prior injury of that shoulder that was associated with weakness and altered sensation. 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 He has now seen neurology and neurosurgery, and undergone PT, and atthis point he has been offered a procedure to decompress that area but is not interested. ?? Dental: RTOG dental Grade 1 ?? Summary: at this point his clinical exam reveals MARCO. 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 We discussed a CT of the H&N given his development of new, sharp but brief pain, but as it is likely related to fibrosis he was not interested at this time. If his pain worsens he is contact us prior to his next appointment. ?? Hypothyroid: managed by PCP at this time ?? Arthritis: psoriatic arthritis, managed by Rheumatology. Continuing on MTX and prednisone ?? Left Knee Pain: continuing PT and steroid injections ?? FU: follow up with radiation oncology per NCC algorithm documented in this encounter Miscellaneous Notes * Miscellaneous - Provider, Valerie - 03/17/2014 3:26 PM EDT documented in this encounter Plan of Treatment Upcoming Encounters Date Type Department Care Team (Late st Contact Info) Description 05/24/2025 11:00 AM EDT Office Visit Radiation Oncology at [address] [phone] Jesse Mcmahan MD [facility] [place] [address] documented as of this encounter Visit Diagnoses Diagnosis Cancer of base of tongue- Primary Malignant neoplasm of base of tongue documented in this encounter Administered Medications Inactive Administered Medications - up to 3 most recent administrations Medication Order MAR Action Action Date Dose Rate Site lidocaine (XYLOCAINE) 2 % jelly Topical, ONCE, On Thu03/17/14 at 1400, 1 dose, Prior to flexible nasopharyngoscopy. Given 03/17/2014 4:42 PM EDT lidocaine (XYLOCAINE) 4 % external solution 10 mL 10 mL, INTRANASAL, ONCE, On Thu03/17/14 at 1400, 1 dose, Premedication prior to flexible nasopharyngoscopy. Given 03/17/2014 4:43 PM EDT 10 mLs documented in this encounter Care Teams Procurement Buyer Relationship Specialty Start Date End Date Ash Hernandez MD [address] [place] [phone] PCP - General 06/25/10 04/02/23 documented as of this encounter
--- OUTSIDE RECORDS SUMMARY | 2024-08-01 15:28 | XMS_ITS | Encounter Summary ---
Author Organization [facility] [place] [address] Care Team Providers Care Product Design Specialist Name Role Phone Bj Alves MD Primary Care Provider [phone] Reason for Visit * Reason Comments Follow-up Pt. not good about t aking his medications does so off and on Pain Having back pain Encounter Details Date Type Department Care Team (Late st Contact Info) Description 03/21/2013 2:30 PM EDT Follow-Up Hematology [place] [address] Butch Catalan MD [address] [place] [address] [place] [address] Cancer of base of tongue (Primary Dx); Thalassemia minor Discharge Disposition: Home Social History Tobacco Use [...] Sign Reading Time Taken Comments Blood Pressure 114/70 03/21/2013 3:02 PM EDT Pulse 62 03/21/2013 3:02 PM EDT Temperature 36.6 ??C (97.9 ??F) 03/21/2013 3:02 PM ED T Respiratory Rate 16 03/21/2013 3:02 PM EDT Oxygen Saturation 100% 03/21/2013 3:02 PM EDT Inhaled Oxygen Concentration - - Weight 87.6 kg (193 lb 2 oz) 03/21/2013 3:02 PM EDT Height 175 cm (5' 8.9) 03/21/2013 3:02 PM EDT Body Mass Index 28.6 03/21/2013 3:02 PM EDT documented in this encounter Progress Notes * Butch Catalan MD - 03/21/2013 3:29 PM EDT Head and Neck Cancer Medical Oncology Follow-Up Note Patient Active Problem List Diagnosis ??? 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 1 PPD x 38 yrs. Quit 08/2011. Developed odynophagia early 11/2011, abx did not improve, . Referred to ENT. He does note some coughing in the morning ove the past year. Stagin12/09/11 CT H&N with contrast ([facility]): Mixed attenuation mass with lare low density areas suggesting necrotic change present deep to anterior aspect L SCM. Mass smoothly marginated, max 3.3 x 5.2 cm. 11/27/11 PET-CT ([facility]): Despite premedication, severe claustrophobia allowed this can [...] arm. Received 70 Gy completed 04/06/12 ??? Congenital nevus ??? Dysphagia, unspecified ??? DIFFICULT AIRWAY ??? Claustrophobia Needs sedation for scans ??? 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 Obesity ??? Hyperlipidemia ??? Hypertension ??? Glucose intolerance (impaired glucose tolerance) ??? Hypothyroidism On replacement ??? GERD (gastroesophageal reflux disease) ??? Psoriasis ??? Sleep apnea On CPAP ??? Anxiety ??? Back pain, chronic ??? Thalassemia minor Chief Complaint: followup for head/neck cancer. Interval History: Now 11 months from completion of chemoRT. Nasal, oral, pharyngeal, neck issues: ongoing speech therapy. Recent MBS showed ongoing dysphagia. Tase Diet and nutrition problems: taste sensation still off, but continues to evolve. Sweets OK. Chocolate off; strawberries not interesting. Metastatic symptoms: None Functional status: PFS 1, improving steadily. Insomnia + daytime fatigue still troublesome. Thinks it may be dry air from CPAP machine. Interval medical problems: New mid-back pain, onset last week, without specific activity or other associations. Deep, initially moderate in severity, but getting better. Trial of short-term H2 isis not helpful, nor antacid. Throbs along with pulse. Worse with deep breath. Worse supine, better leaning forward. MTX has helped the psoriasis and psoriatic arthritis in ankles. Pain control: adequate Outpatient Prescriptions Marked as Taking for the 03/21/13 encounter (Follow-Up) with Butch Catalan MD Medication Status Sig Dispense Refill ??? celecoxib (CELEBREX) 100 mg capsule Active Take 100 mg by mouth daily as needed. ??? levothyroxine (SYNTHROID) 100 mcg tablet Active Take 175 mcg by mouth daily. Indications: Hypothyroidism ??? methotrexate 2.5 mg tablet Active Take by mouth once a week. Can take without regard to food. Call clinic before/prior to starting medication/script. ??? amlodipine-benazepril (LOTREL) 5-10 mg per capsule Active Take 2 capsules by mouth daily. ??? B Complex-Vitamin C-Folic Acid (NEPHROCAP) 1 mg capsule Active Take 1 capsule by mouth daily. ??? cholecalciferol, Vitamin D3, 400 unit tablet Active Take 400 Units by mouth daily. ??? ascorbic acid (VITAMIN C) 500 mg tablet Active Take 500 mg by mouth daily. ??? metoprolol succinate (TOPROL-XL) 100 mg XL tablet Active Take 50 mg by mouth daily. ??? rosuvastatin (CRESTOR) 10 mg tablet Active Take 10 mg by mouth daily. Social History: Reviewed; no changes from last visit. Family History: Reviewed; no new developments. Review of Systems: Review of systems is negative for other FUR PLUCKER, bone, pulmonary, cardiac, GI, , extremity, neurologic, endocrine, skin, constitutional, emotional, or functional problems. Wt Readings from Last 3 Encounters: 03/21/13 87.6 kg (193 lb 2 oz) 02/24/13 88.451 kg (195 lb) 01/20/13 91.4 kg (201 lb 8 oz) Vitals 03/21/13 Weight - Scale 87.6 kg (193 lb 2 oz) Height 175 cm (5' 8.9) BSA (Calculated - sq m) 2.06 sq meters BMI (Calculated) 28.7 Temp 36.6 ??C (97.9 ??F) Temp Source Oral Heart Rate 62 Heart Rate Source NIBP Resp 16 BP 114/70 mmHg BP Location Right arm Patient Position Sitting SpO2 100 % Pain Level 8 [pain in middle of back last few days] FACES Pain Rating: Rest 8 - hurts whole lot Karnofsky Score 90 Exam: General appearance: NAD Nutritional status: Stable, ample Skin: clear Oral: benign Dentition: stable Neck: No fibrosis; grade 1 lymphedema Right: no adenopathy Left: no adenopathy Nasal: clear Ear: Clear TMs Peripheral nodes: nil Chest: clear Heart: RRR, normal tones; no rub Abdomen: benign, no HSM Extremties: no clubbing or edema Neurologic: Cranial nerves: Normal Reflexes: 1 + Laryngoscopy: No results found for this or any previous visit (from the past 72 hour(s)). Radiology: I personally reviewed images from local CT neck and chest 03/10/2013: I see no signs of recurrence or mets or PNA. Impressions and Plans: 1. Cancer of base of tongue : clinically MARCO. Chest symptoms do not sound cardiac, but do suggest GERD. Plan: ?? Trial of daily omeprazole 40 mg/day. If no response, re-image chest, consider EGD. ?? Unless ongoing problems, f/u per [facility] H/N standard plan. 2. Thalassemia minor: clinically stable Butch Catalan MD, FACP news copy editor Hematology/[place] [address] documented in this encounter Plan of Treatment Upcoming Encounters Date Type Department Care Team (Late st Contact Info) Description 05/24/2025 11:00 AM EDT Office Visit Radiation Oncology at [address] [phone] Jesse Mcmahan MD [facility] [place] [address] documented as of this encounter Visit Diagnoses Diagnosis Cancer of base of tongue- Primary Malignant neoplasm of base of tongue Thalassemia minor Other thalassemia documented in this encounter Care Teams Product Design Specialist Relationship Specialty Start Date End Date Bj Alves MD [address] [place] [phone] PCP - General 06/25/10 04/02/23 documented as of this encounter
--- OUTSIDE RECORDS SUMMARY | 2024-08-01 15:28 | XMS_ITS | Encounter Summary ---
Author Organization [facility] [place] [address] Care Team Providers Care Research And Development Technician Name Role Phone Bj Alves MD Primary Care Provider [phone] Encounter Details Date Type Department Care Team (Late Contact Info) Description 05/29/2014 Orders [place] [phone] Shannan Johnson APRN Head and neck cancer (Primary Dx) Social [...] AM EDT Office Visit Radiation Oncology at [address] [phone] Jesse Mcmahan MD [facility] [place] [address] documented as of this encounter Visit Diagnoses Diagnosis Head and neck cancer- Primary Malignant neoplasm of head, face, and neck documented in this encounter Care Teams Research And Development Technician Relationship Specialty Start Date End Date Bj Alves MD [address] [place] [phone] PCP - General 06/25/10 04/02/23 documented as of this encounter
--- OUTSIDE RECORDS SUMMARY | 2024-08-01 15:28 | XMS_ITS | Encounter Summary ---
Author Organization [facility] [place] [address] Care Team Providers Care Fitting Room Inspector Name Role Phone Bj Alves MD Primary Care Provider [phone] Reason for Visit * Reason Comments Radiation Follow-up tongue cancer Encounter Details Date Type Department Care Team (Late st Contact Info) Description 05/12/2013 3:00 PM EDT Follow-Up Radiation Oncology at [address] [phone] Shannan Johnson APRN Tongue cancer; Hypothyroidism Discharge Disposition: Home Social History Tobacco Use [...] Sign Reading Time Taken Comments Blood Pressure 140/97 05/12/2013 2:49 PM EDT Pulse 70 05/12/2013 2:49 PM EDT Temperature 36.5 ??C (97.7 ??F) 05/12/2013 2:49 PM ED T Respiratory Rate 16 05/12/2013 2:49 PM EDT Oxygen Saturation 99% 05/12/2013 2:49 PM EDT Inhaled Oxygen Concentration - - Weight 88 kg (194 lb) 05/12/2013 2:49 PM EDT Height 175 cm (5' 8.9) 05/12/2013 2:49 PM EDT Body Mass Index 28.73 05/12/2013 2:49 PM EDT documented in this encounter Progress Notes * Shannan Johnson Arnie, NEW CAR INSPECTOR - 05/12/2013 3:16 PM EDT Subjective: Patient ID: Sebastian Wyatt is a 58 y.o. male.who was treated for cancer of [...] past year. Stagin12/09/11 CT H&N with contrast ([facility]): Mixed attenuation mass with lare low density areas suggesting necrotic change present deep to anterior aspect L SCM. Mass smoothly marginated, max 3.3 x 5.2 cm. 11/27/11 PET-CT ([facility] Despite premedication, severe claustrophobia allowed this can [...] cetuximab arm. Received 70 Gy completed 04/06/12 Surveillance: 03/10/2013--CT of chest--no evidence of recurrence. Patient Active Problem List Diagnosis Code ??? [...] Congenital nevus 216.9 Past Surgical History Procedure Date ??? Carpal tunnel release rt ??? Laryngoscopy, dirct, op scope, biopsy 12/12/2011 LARYNGOSCOPY, MICROSCOPE, WITH BIOPSY performed by BECKY GANN at [facility] OR ??? Laryngoscopy, dirct, op scop, exc tumr 12/12/2011 LARYNGOSCOPY, DIRECT, EXCISION OF TUMOR, CORD STRIPPING, MICRO performed by BECKY GANN at [facility] OR ??? Scan doc: pet scan 01/16/2012 PET SCAN performed by LES REYNOLDS at [facility] ??? Scan doc: pet scan 07/06/2012 PET SCAN performed by Anesthesia-Iris Reynolds at [facility] No Known Allergies Current Outpatient Prescriptions on [...] Take 400 Units by mouth daily. ??? metoprolol succinate (TOPROL-XL) 100 mg XL tablet Take 50 mg by mouth daily. ??? rosuvastatin (CRESTOR) 10 mg tablet Take 10 mg by mouth daily. ??? ascorbic acid (VITAMIN C) 500 mg tablet Take 500 mg by mouth daily. History Social History ??? 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 Lives near [facility] with , 10yo daughter, 2 horses, 2 dogs. Advance Directive: Not on file. See advance care planning note Interval History: Sebastian Wyatt returns for routine follow up. He completed radiotherapy approximately nearly 11 months prior. Diagnosed with psoriatic arthritis by Jail Keeper recently, now on MTX but no longer on prednisone. 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 Currently he notes the following symptoms: Symptom Description Ongoing Intervention Dysphagia No choking or coughing unless eating large volumes quickly IUSS ACOUSTIC ANALYST evaluation was done--see scanned documents Odynophagia Chronic pain associated with eating, using minimal pain medication as he does not feel that it is necessary Not using oxycodone only celebrex Trismus Improving, doing exercises. PT exercises --Still going to [facility] Weight Loss 185 => 194. today --stable from last visit Diet Modifications Eating most foods unchanged [...] flossing, using dental trays Following with dentistry --he sees his dentist every six months. He had no cavities at his last visit. 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 MTX, --prednisone is done He continues to have difficulty with fatigue, insomnia. He has sleep apnea as well and does not useCPAP which can also contribute to his fatigue but he has not been able to tolerate the masks. 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 He indicates that he needs to push himself. By he finds that he is very tired. 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 He does not want to be on disability. His PCP has been monitoring his TSH and he continues at 175 mcg a day. Nutrition is good. He has found that he cannot eat chicken now due to the taste. He is other meats. Review of Systems Constitutional: Positive for fatigue. Negative for fever, diaphoresis, appetite change and unexpected weight change. HENT: Positive for tinnitus. Negative for sore throat, mouth sores and dental problem. Swelling under chin is much less since starting PT with Korin Craig. Eyes: Negative. Tearing of eyes--dryness resolved Respiratory: Negative. Negative for cough, chest tightness, shortness of breath and wheezing. Cardiovascular: Negative. Negative for chest pain and leg swelling. Gastrointestinal: Negative. Genitourinary: Negative. Musculoskeletal: Positive for joint swelling and arthralgias. Left shoulder very painful and not able to lift arm above shoulder level. Hands now hurt Skin: Negative. Neurological: Negative for tremors. Balance is difficult when walking on uneven surfaces and it creates pain involving his legs Hematological: Negative. Psychiatric/Behavioral: Positive for sleep disturbance. Negative for dysphoric mood. The patient isnot nervous/anxious. Some short term memory changes Filed Vitals: 05/12/13 1449 BP: 140/97 Pulse: 70 Temp: 36.5 ??C (97.7 ??F) TempSrc: Oral Resp: 16 Height: 175 cm (5' 8.9) Weight: 87.998 kg (194 lb) SpO2: 99% KPS: 90 Objective: Physical Exam Constitutional: He [...] chin fullness. [facility] He is also doing MLD. Pain: pain is unchanged. He has been started on methotrexate for his psoriatic arthritis pain. He prefers to not use pain medication. Pain with swallowing is less--ongoing monitoring. Hypothyroidism: TSH is now in normal range with levothyroxine 175 mcg a day. PCP is now managing his hypothyroidism Fatigue continues and limits the amount of time he can work. 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 Support provided to continue. Swallowing: stable Dry eye: Resolved We will see patient again in three Months in Rad Onc for ongoing clinical evaluation. documented in this encounter Plan of Treatment Upcoming Encounters Date Type Department Care Team (Late st Contact Info) Description 05/24/2025 11:00 AM EDT Office Visit Radiation Oncology at [address] [phone] Jesse Mcmahan MD [facility] [address] [place] [address] documented as of this encounter Visit Diagnoses Diagnosis Tongue cancer Malignant neoplasm of tongue, unspecified site Hypothyroidism Unspecified hypothyroidism documented in this encounter Care Teams Fitting Room Inspector Relationship Specialty Start Date End Date Bj Alves MD [address] [place] [phone] PCP - General 06/25/10 04/02/23 documented as of this encounter
--- OUTSIDE RECORDS SUMMARY | 2024-08-01 15:28 | XMS_ITS | Encounter Summary ---
Author Organization [facility] [place] [address] Care Team Providers Care Helper Steel Fabrication Name Role Phone Bj Alves MD Primary Care Provider [phone] Reason for Visit * Reason Comments Radiation Follow-up head and neck cancer Encounter Details Date Type Department Care Team (Late st Contact Info) Description 10/18/2015 10:30 AM EDT Office Visit Radiation Oncology at [address] [phone] Shannan Johnson APRN Cancer of head and [...] Sign Reading Time Taken Comments Blood Pressure 155/93 10/18/2015 10:30 AM EDT Pulse 71 10/18/2015 10:30 AM EDT Temperature 36.6 ??C (97.9 ??F) 10/18/2015 10:30 AM E DT Respiratory Rate 18 10/18/2015 10:30 AM EDT Oxygen Saturation 98% 10/18/2015 10:30 AM EDT Inhaled Oxygen Concentration - - Weight 102.3 kg (225 lb 8 oz) 10/18/2015 10:30 A M EDT Height - - Body Mass Index 33.4 05/12/2013 2:49 PM EDT documented in this encounter Progress Notes * Shannan Johnson, FOREIGN LAW CONSULTANT - 10/18/2015 10:49 AM EDT Patient ID: Sebastian Wyatt is a 60 y.o. male.who was treated for cancer of [...] past year. Stagin12/09/11 CT H&N with contrast ([facility]): Mixed attenuation mass with lare low density areas suggesting necrotic change present deep to anterior aspect L SCM. Mass smoothly marginated, max 3.3 x 5.2 cm. 11/27/11 PET-CT ([facility]): Despite premedication, severe claustrophobia allowed this can [...] Local specialist evaluation evaluation by ENT at [facility] Diagnostic method CT of neck 11/27/2011 Diagnostic biopsy location: [facility]/b by Dr Rio Gann Date of Cancer Diagnosis: 12/12/2011 Date of EUA: 12/12/2011 EUA location: [facility] CT date: 11/27/2011 PET/CT date: 11/27/2011--limited study [...] 06/01/2014 CT of neck--no evidence of recurrence 03/22/2015--CT of neck--no evidence of recurrence 03/22/2015-- CT of chest --no evidence of recurrence. Patient Active Problem List [...] G56.20 ??? DIFFICULT AIRWAY T88.4XXA ??? Dysphagia, unspecified R13.10 ??? 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 Carpal tunnel release rt ??? Pro laryngoscopy, dirct, op scope, biopsy 12/12/2011 LARYNGOSCOPY, MICROSCOPE, WITH BIOPSY performed by RIO GANN at [facility] OR ??? Pro laryngoscopy, dirct, op scop, exc tumr 12/12/2011 LARYNGOSCOPY, DIRECT, EXCISION OF TUMOR, CORD STRIPPING, MICRO performed by RIO GANN at [facility] OR ??? Scan doc: pet scan 01/16/2012 PET SCAN performed by RODOLFO, ANESTHESIA-IRIS at [facility] ??? Scan doc: pet scan 07/06/2012 PET SCAN performed by Anesthesia-Iris Resource at [facility] No Known Allergies Current Outpatient Prescriptions on File Prior to Visit Medication Sig Dispense Refill ??? cholecalciferol, Vitamin D3, 400 unit tablet Take 400 Units by mouth daily. ??? METHOTREXATE SODIUM, PF, INJ Inject 0.4 mg as directed once a week. Self injects in thigh. For arthritits ??? levothyroxine (SYNTHROID) 100 mcg tablet Take 175 mcg by mouth daily. Indications: Hypothyroidism ??? amlodipine-benazepril (LOTREL) 5-10 mg per capsule Take 1 capsule by mouth daily. ??? B Complex-Vitamin C-Folic Acid (NEPHROCAP) 1 mg capsule Take 1 capsule by mouth daily. ??? ascorbic acid (VITAMIN C) 500 mg tablet Take 500 mg by mouth daily. ??? celecoxib (CELEBREX) 100 mg capsule Take 100 mg by mouth daily as needed. ??? [DISCONTINUED] rosuvastatin (CRESTOR) 10 mg tablet Take 5 mg by mouth daily. 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 Lives near [facility] with , 13yo daughter, 2 horses, 2 dogs. Advance Directive: Not on file. See advance care planning note Interval History: Sebastian Wyatt is being seen in clinic for scheduled follow up. He completed radiotherapy 04/2012. He also has been diagnosed with psoriatic arthritis And is being followed by Technical Coordinator everythree months. He continues on MTX but no longer on prednisone. Currently he notes the following symptoms: He has pain involving his neck that radiates from the left side of his neck to the right side. This pain is sharp and shooting and lasts less than a minute. Massage and relaxation helps the pain to stop. The pain can be triggered by a sudden movement. He is stretching his neck regularly. He hears a lot of clicking with moving his neck. He has beenusing bengay which has helped with muscle ache. Symptom Description Ongoing Intervention Dysphagia He reports stable choking when swallowing if he is not careful. Beef is especially difficult but otherwise doing satisfactorily GREY GOODS EXAMINER evaluation was done--see scanned documents No new intervention Odynophagia Opening his mouth wide causes TMJ pain L>R F/U with rheumatology for Psoriatic arthritis Trismus Improving, doing exercises. exercises --ongoing Weight Loss 185 at end of treatment=> 225 today -- Patient plans to start watching calories and to increase exercise. Diet Modifications Eating most foods unchanged Neck Symptoms L shoulder pain and left neck pain radiating to the right with associated spasms thatlast about one minute and occur daily. . Chronic at some level, intermittent flares. He cannot lifthis left arm above the level of his shoulder. He has completed PT Stopped the gabapentin. Patient does not want any change in plan. Continue monitoring taste Fluctuates. At times improved and normal but not sustained Continue to monitor Dental Issues Some tenderness when flossing, using dental trays . Regular dental follow up with no issues. -no caries. Following with dentistry --he sees his dentist every six months. He had no cavities at his last visit. Otalgia/Referred Pain No complaints fatigue Ongoing Dry eye resolved Xerostomia Improving over time --Increased dryness at night Other Pain Pain associated knees, ankles and shoulders due to psoriatic arthritis and left knee dueto injury MTX--sees engagement mgr every three months. Uses MTX daily and celebrex only with flaresof pain.--affected areas ankles, heels, toes, lower back, wrists, fingers hypothyroid Patient on levothyroxine PCP is monitoring Patient is now on permanent disability (received medical long term) since June 2015. He has recently applied for SS disability as well. He has sleep apnea as well and does not use CPAP. Review of Systems Constitutional: Negative. Negative for fever, diaphoresis, activity change, appetite change, fatigue and unexpected weight change. HENT: Positive for [...] Musculoskeletal: Positive for joint swelling and arthralgias. Ongoing MTX for psoriatic arthritis. F/U with rheumatology every three to four months. Skin: Positive for rash. +Psoriasis Neurological: Negative for tremors and weakness. Balance is difficult when walking on uneven surfaces and it creates pain involving his legs Hematological: Negative. Psychiatric/Behavioral: Positive for sleep disturbance. Negative for dysphoric mood. The patient isnot nervous/anxious. Vitals Office Visit from 10/18/2015 in [facility] Radiation Oncology Weight - Scale (!) 102.286 kg (225 lb 8 oz) Temp 36.6 ??C (97.9 ??F) Temp Source Oral Heart Rate 71 Heart Rate Source Right Resp 18 BP (!) 155/93 mmHg SpO2 98 % Objective: Physical Exam Constitutional: [...] has no rales. He exhibits no tenderness. Abdominal: Soft. Musculoskeletal: He exhibits no edema or tenderness. [...] Vitals reviewed. Laboratory: PCP monitoring TSH and engagement mgr evaluates CBC and CMP every three months Assessment and Plan: Mr Wyatt is a pleasant 60 year old man treated with chemoradiation for cancer base of tongue: Hissymptoms are stable at this time. He did have PT to try to reduce his left neck fibrosis and tightness. He indicates that this had limited benefit. He was taught exercises which he continues at home.CT scan of neck/chest were repeated in March 2015 and showed no evidence of recurrence. Pain: pain involving his neck, leg and from psoriatic arthritis. He continues on methotrexate for his psoriatic arthritis pain. He prefers to not use pain medication. Pain with swallowing stable-ongoing monitoring. Neck pain--massage to be continued and gentle stretching exercises of the neck Hypothyroidism: PCP is now managing his hypothyroidism We will see patient again as per RTOG follow up. He will have repeat imaging ie CT of the chest at the end of followed by clinic evaluation in six months. Patient is to call with any questions or concerns in the interim. documented in this encounter Plan of Treatment Upcoming Encounters Date Type Department Care Team (Late st Contact Info) Description 05/24/2025 11:00 AM EDT Office Visit Radiation Oncology at [address] [phone] Jesse Mcmahan MD [facility] [place] [address] documented as of this encounter Visit Diagnoses Diagnosis Cancer of head and neck documented in this encounter Care Teams Helper Steel Fabrication Relationship Specialty Start Date End Date Bj Alves MD [address] [place] [phone] PCP - General 06/25/10 04/02/23 documented as of this encounter
--- OUTSIDE RECORDS SUMMARY | 2024-08-01 15:28 | XMS_ITS | Encounter Summary ---
Author Organization [facility] Address [facility] [place] [address] Care Team Providers Care Thread Spooler Name Role Phone Bj Alves MD Primary Care Provider [phone] Encounter Details Date Type Department Care Team (Latest Contact Info) Description 12/15/2016 - 12/15/2016 11:59 PM EDT Hospital Encounter Radiology Library at [facility] [place] [phone] Brandon Gregorio MD [facility] [place] [address] Pain Discharge Disposition: Home Social History Tobacco Use [...] Sig Dispensed Refills Start Date End Date celecoxib (CELEBREX) 100 mg capsule Take 100 mg by mouth every other day. prn levothyroxine (Synthroid) 150 mcg tabletIndications:hyp othyroidism Take 150 mcg by mouth daily. Indications: hypothyroidism amlodipine-benazepril (LOTREL) 5-10 mg per capsule Take 1 capsule by mouth daily. FOLIC ACID ORAL Take by mouth daily. 10/2017 VITAMIN K2 ORAL Take by mouth. 01/09/2017 cholecalciferol, Vitamin D3, 400 unit tablet Take 400 Units by mouth daily. 01/09/2017 METHOTREXATE SODIUM, PF, INJ Inject 0.4 mg as directed once a week. Self injects in thigh. For arthritits 12/07/2017 ascorbic acid (VITAMIN C) 500 mg tablet Take 500 mg by mouth daily. 01/09/2017 documented as of this encounter Plan of Treatment Upcoming Encounters Date Type Department Care Team (Late st Contact Info) Description 05/24/2025 11:00 AM EDT Office Visit Radiation Oncology at [address] [phone] Jesse Mcmahan MD [facility] [address] [place] [address] documented as of this encounter Procedures Procedure Name Priority Date/Time Associated Diagnosis Comments FILM LIBRARY STORAGE ONLY ULTRASOUND STUDY Routine 12/15/2016 12:00 AM EDT Pain documented in this encounter Results * Film Library- Storage Only Ultrasound Study (12/15/2016 12:00 AM EDT) Narrative [facility] - 12/17/2016 4:36 PM EDT This exam is for storage only and is auto-finalizing. Brandon Gregorio MD IMG FILM LIBRARY ORD ERABLES [place], [place] documented in this encounter Visit Diagnoses Diagnosis Pain Generalized pain documented in this encounter Care Teams Thread Spooler Relationship Specialty Start Date End Date Bj Alves MD [address] [place] [phone] PCP - General 06/25/10 04/02/23 documented as of this encounter
--- OUTSIDE RECORDS SUMMARY | 2024-08-01 15:28 | XMS_ITS | Encounter Summary ---
Author Organization [facility] [place] [address] Care Team Providers Care Real Estate Analyst Name Role Phone Bj Avles MD Primary Care Provider [phone] Encounter Details Date Type Department Care Team (Late Contact Info) Description 02/21/2014 Orders Only Radiation Oncology at [address] [phone] Jesse Mcmahan MD [facility] [place] [address] Head and neck cancer (Primary Dx) Social [...] EDT Office Visit Radiation Oncology at [address] [phone] Jesse Mcmahan MD [facility] [place] [address] documented as of this encounter Visit Diagnoses Diagnosis Head and neck cancer- Primary Malignant neoplasm of head, face, and neck documented in this encounter Care Teams Real Estate Analyst Relationship Specialty Start Date End Date Bj Alves MD [address] [place] [phone] PCP - General 06/25/10 04/02/23 documented as of this encounter
--- OUTSIDE RECORDS SUMMARY | 2024-08-01 15:28 | XMS_ITS | Encounter Summary ---
Author Organization [facility] [place] [address] Care Team Providers Care Purchase Request Editor Name Role Phone Bj Alves MD Primary Care Provider [phone] Reason for Visit * Reason Comments Radiation Follow-up Encounter Details Date Type Department Care Team (Late st Contact Info) Description 09/01/2013 3:00 PM EST Follow-Up Radiation Oncology at [address] [phone] Shannan Johnson, HERBERT Cancer of base of tongue (Primary Dx) [...] Sign Reading Time Taken Comments Blood Pressure 125/81 09/01/2013 2:58 PM EST Pulse 69 09/01/2013 2:58 PM EST Temperature 36.3 ??C (97.3 ??F) 09/01/2013 2:58 PM ES T Respiratory Rate 18 09/01/2013 2:58 PM EST Oxygen Saturation 98% 09/01/2013 2:58 PM EST Inhaled Oxygen Concentration - - Weight 89.8 kg (198 lb) 09/01/2013 2:58 PM EST Height - - Body Mass Index 29.33 05/12/2013 2:49 PM EDT documented in this encounter Progress Notes * Shannan Johnson, CHRISTIAN SCIENCE READER - 09/01/2013 3:30 PM EST Subjective: Patient ID: Sebastian Wyatt is [...] year. Stagin12/09/11 CT H&N with contrast ([facility]): Mixed attenuation mass with lare low density areas suggesting necrotic change present deep to anterior aspect L SCM. Mass smoothly marginated, max 3.3 x 5.2 cm. 11/27/11 PET-CT ([facility]): Despite premedication, severe [...] WITH BIOPSY performed by BECKY GANN at [facility] OR ??? Laryngoscopy, dirct, op scop, exc tumr 12/12/2011 LARYNGOSCOPY, DIRECT, EXCISION OF TUMOR, CORD STRIPPING, MICRO performed by BECKY GANN at [facility] OR ??? Scan doc: pet scan 01/16/2012 PET SCAN performed by RODOLFO, ANESTHESIA-IRIS at [facility] ??? Scan doc: pet scan 07/06/2012 PET SCAN performed by Anesthesia-Iris Resource at [facility] No Known Allergies Current Outpatient Prescriptions on File Prior to Visit Medication Sig Dispense Refill ??? METHOTREXATE SODIUM, PF, INJ Inject 0.4 [...] Take 500 mg by mouth daily. ??? [DISCONTINUED] cholecalciferol, Vitamin D3, 400 unit tablet Take 400 Units by mouth daily. ??? metoprolol succinate (TOPROL-XL) 100 mg XL tablet Take 50 mg by mouth daily. ??? rosuvastatin (CRESTOR) 10 mg tablet Take 10 mg by mouth daily. 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 Lives near [facility] with , 10yo daughter, 2 horses, 2 dogs. Advance Directive: Not on file. See advance care planning note Interval History: Sebastian Wyatt returns for routine follow up. He completed radiotherapy approximately 1 year and five months ago. Diagnosed with psoriatic arthritis by Patternmaker Helper And he continues on MTX but no longer on prednisone. Currently he notes the following symptoms: Symptom Description Ongoing Intervention Dysphagia No choking or coughing unless eating large volumes quickly Symptoms are slightly improved. He reports occasional spasm to the left side of his neck. This in intermittent and lasts at most 30 seconds and occurs three to four times a week PLY SPLICER evaluation was done--see scanned documents No new intervention Odynophagia Chronic pain associated with eating, using no pain medication as he does not feel that it is necessary Not using oxycodone only celebrex Trismus Improving, doing exercises. PT exercises --Still going to [facility] Weight Loss 185 => 197. today --stable from last visit Diet Modifications Eating most foods unchanged Neck Symptoms L shoulder pain, no change. Chronic at some level, intermittent flares. He cannot lift his left arm above the level of his shoulder. He has completed PT He does not want repeat MRI Stopped the gabapentin. Continue monitoring taste Fluctuates. At times improved and normal but not sustained Continue to monitor Dental Issues Some tenderness when flossing, using dental trays Following with dentistry --he sees his dentist every six months. He had no cavities at his last visit. 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 MTX, He continues to have difficulty with fatigue, insomnia. He has sleep apnea as well and does not useCPAP which can also contribute to his fatigue but he has not been able to tolerate the masks. 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 He indicates that he needs to push himself. By he finds that he is very tired. He can drive for about a 1/2 hour before his shoulder pain flares His PCP has been monitoring his TSH [...] Some short term memory changes Filed Vitals: 09/01/13 1458 BP: 125/81 Pulse: 69 Temp: 36.3 ??C (97.3 ??F) TempSrc: Oral Resp: 18 Weight: 89.812 kg (198 lb) SpO2: 98% KPS: 90 Objective: Physical [...] decreasing under the chin fullness. He continues doing MLD. Pain: pain is unchanged. 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 Support provided to continue. Swallowing: stable Dry eye: Resolved We will see patient again in three Months in Rad Onc for ongoing clinical evaluation. As per RTOG grid * Shannan Johnson APRN - 09/01/2013 3:29 PM EST documented in this encounter Plan of Treatment Upcoming Encounters Date Type Department Care Team (Late st Contact Info) Description 05/24/2025 11:00 AM EDT Office Visit Radiation Oncology at [address] [phone] Jesse Mcmahan MD [facility] [place] [address] documented as of this encounter Visit Diagnoses Diagnosis Cancer of base of tongue- Primary Malignant neoplasm of base of tongue documented in this encounter Care Teams Purchase Request Editor Relationship Specialty Start Date End Date Bj Alves MD [address] [place] [phone] PCP - General 06/25/10 04/02/23 documented as of this encounter
--- OUTSIDE RECORDS SUMMARY | 2024-08-01 15:28 | XMS_ITS | Encounter Summary ---
Author Organization [facility] [place] [address] Care Team Providers Care Fine Patcher Name Role Phone Bj Alves MD Primary Care Provider [phone] Encounter Details Date Type Department Care Team (Late Contact Info) Description 03/05/2017 Orders Only [place] [phone] Suly Lamb, PAGE MAKEUP SYSTEM OPERATOR Social History Tobacco Use Types Packs/Day Years [...] AM EDT Office Visit Radiation Oncology at [address] [phone] Jesse Mcmahan MD [facility] [place] [address] documented as of this encounter Visit Diagnoses Not on filedocumented in this encounter Care Teams Fine Patcher Relationship Specialty Start Date End Date Bj Alves MD [address] [place] [phone] PCP - General 06/25/10 04/02/23 documented as of this encounter
--- OUTSIDE RECORDS SUMMARY | 2024-08-01 15:28 | XMS_ITS | Encounter Summary ---
Author Organization [facility] [place] [address] Care Team Providers Care Human Resources Technician Name Role Phone Bj Alves MD Primary Care Provider Encounter Details Date Type Department Care Team (Late st Contact Info) Description 09/14/2017 Telephone Radiation Oncology at [address] [phone] Gayle Lara RN Social History Tobacco Use [...] Telephone Encounter - Gayle Lara RN - 09/14/2017 3:[address] Mcmahan responded This is fine. Telephone call to Aurora at [facility] pain [facility] to advise that Dr. Mcmahan said that it is fine for patient to receive trigger point injection. She thanked us for response. * Telephone Encounter - Gayle Lara RN - 09/14/2017 2:47 PM EST Telephone call from Aurora at [facility] pain [facility] regarding patient. He is scheduled to come in on 09/17 for a trigger point injection in scapular region. They previously have had to have oncologic approval prior to having this injection given and that is what she is calling to inquire about. I let her know that patient was last seen by Dr. Mcmahan, that I will route this request to him andcall her back with his response. She thanked me for this and is hopeful that we can get back to arsh tomorrow at [phone]. documented in this encounter Plan of Treatment Upcoming Encounters Date Type Department Care Team (Late st Contact Info) Description 05/24/2025 11:00 AM EDT Office Visit Radiation Oncology at [address] [phone] Jesse Mcmahan MD [facility] [place] [address] documented as of this encounter Visit Diagnoses Not on filedocumented in this encounter Care Teams Human Resources Technician Relationship Specialty Start Date End Date Bj Alves MD [address] [place] [phone] PCP - General 06/25/10 04/02/23 documented as of this encounter
--- OUTSIDE RECORDS SUMMARY | 2024-08-01 15:28 | XMS_ITS | Encounter Summary ---
Author Organization [facility] [place] [address] Care Team Providers Care Diesel Fleet Mechanic Name Role Phone Ash Hernandez MD Primary Care Provider [phone] Encounter Details Date Type Department Care Team (Late st Contact Info) Description 01/18/2016 9:30 AM EDT Office Visit Radiation Oncology at [address] [phone] Jesse Mcmahan MD [facility] [place] [address] Cancer of base of tongue Social History [...] Sign Reading Time Taken Comments Blood Pressure 141/85 01/18/2016 9:53 AM EDT Pulse 87 01/18/2016 9:53 AM EDT Temperature 36.6 ??C (97.9 ??F) 01/18/2016 9:53 AM ED T Respiratory Rate 18 01/18/2016 9:53 AM EDT Oxygen Saturation 100% 01/18/2016 9:53 AM EDT Inhaled Oxygen Concentration - - Weight 99.6 kg (219 lb 8 oz) 01/18/2016 9:53 AM EDT Height - - Body Mass Index 32.51 05/12/2013 2:49 PM EDT documented in this encounter Progress Notes * Jesse Mcmahan MD - 01/18/2016 9:58 AM EDT Radiation Oncology Follow Up Note [...] Staging: ?? 12/09/11 CT H&N with contrast ([facility]): Mixed attenuation mass with lare low density areas suggesting necrotic change present deep to anterior aspect L SCM. Mass smoothly marginated, max 3.3 x 5.2 cm. ?? 11/27/11 PET-CT ([facility]): Despite premedication, severe claustrophobia allowed this can [...] ??? 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 DIFFICULT AIRWAY 404250 ??? Dysphagia, unspecified 787.20 Interval History: Sebastian Wyatt returns for routine follow up having completed radiotherapy approximately 4 years 9 months prior. 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 Odynophagia Intermittent pain left neck almost always with swallowing (rarely without), recedes over hours to days. Pain is not sharp, described as aching, ~3/10. Uses Celebrex minimally Trismus Stable limitation, doing [...] recently cracked, may require extraction. Following with dentistry Otalgia/Referred Pain Intermittent tinnitus. Xerostomia Moderate to severe xerostomia, dysgeusia still moderate. Other Pain Pain associated knees, ankles and shoulders due to psoriatic arthritis. Stable. MTX, prednisone He continues to have stable high level fatigue, progressive towards the end of the week, which eventually limits his activities. Knee surgery on left knee due to work related injury, continued difficulty with walking. He retired last June. No Known Allergies Current Outpatient Prescriptions on File Prior to Visit Medication Sig Dispense Refill ??? FOLIC ACID ORAL Take by mouth [...] WITH BIOPSY performed by BECKY GANN at [facility] OR ??? Pro laryngoscopy, dirct, op scop, exc tumr 12/12/2011 LARYNGOSCOPY, DIRECT, EXCISION OF TUMOR, CORD STRIPPING, MICRO performed by BECKY GANN at [facility] OR ??? Scan doc: pet scan 01/16/2012 PET SCAN performed by LES REYNOLDS at [facility] ??? Scan doc: pet scan 07/06/2012 PET SCAN performed by Anesthesia-Iris Reynolds at [facility] Physical Examination: There were no vitals [...] larynx. Interval Imaging: I have viewed the report, imaging not available. 03/2015 CT chest: MARCO Assessment/Plan: Sebastian Wyatt is now ~4 years 9 months out from definitive RT + cetuximab on RTOG 1016: His KPS is 80% ?? Squamous cell carcinoma of the BOT ?? Disease Status: MARCO clinically and radiographically. ?? Radiation toxicity: ?? Xerostomia: Moderate, using water/biotene to assist ?? Dysphagia: denies gary dysphagia. Tolerating most foods, primary limitation is pain and xerostomia. ?? Pain: associated with swallowing, is not interested in pain medication at this time, tolerating. ?? Fibrosis/Edema: significant and bothersome along left neck, still doing exercises, has had PT tomodest effect. Will ADD pentoxifylline. ?? Fatigue: still significant, compounded by poor sleep ?? Shoulder pain/arm parethesias/LUE weakness: Stable. He has a prior injury of that shoulder that was associated with weakness and altered sensation, and has been evaluated by Neurology/Neurosurgeryand EMG demonstrated neuropathy. ?? Dental: RTOG dental Grade 1 ?? Summary: at this point he is MARCO. 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 We will start pentoxifylline (he is already on Vit E) x 6 months and evaluate him then. ?? 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 Given 01/18/2016 10:00 AM EDT 10 mLs documented in this encounter Care Teams Diesel Fleet Mechanic Relationship Specialty Start Date End Date Ash Hernandez MD [address] [place] [phone] PCP - General 06/25/10 04/02/23 documented as of this encounter
--- OUTSIDE RECORDS SUMMARY | 2024-08-01 15:28 | XMS_ITS | Encounter Summary ---
Author Organization [facility] Address [facility] [place] [address] Care Team Providers Care Global Marketing Manager Name Role Phone Bj Alves MD Primary Care Provider [phone] Reason for Referral * Physical Therapy (Routine) - Closed by system - Referral Specialty Diagnoses / Procedures Referred By Contac t Referred To Contact Physical Therapy Diagnoses Malignant neoplasm of base of tongue Shannan Johnson, JIGGER CROWN POUNCING MACHINE OPERATOR [facility] [place] [address] Referral ID Status Reason Start Date Expiration Date Visits Requested Visits Authorized [id number] Closed by system - Referral Evaluate and Treat 06/08/2014 12/05/2014 1 1 Encounter Details Date Type Department Care Team (Late st Contact Info) Description 06/08/2014 Orders Only Radiation Oncology at [address] [phone] Marcelina Edwards RN Malignant neoplasm of base of tongue (Primary Dx) Social History Tobacco Use Types [...] as of this encounter Progress Notes * Marcelina Rizvi RN - 06/08/2014 11:29 AM EST Radiation Oncology Nurse Note Phone call to patient regarding plan for physical therapy. ( see 06/02/[address] report and plan) I called patient's mobile number. His voice mail clearly states his name with his voice. I left brief message that Shannan Johnson has ordered the physical therapy and he should be hearing from a secretary specialist soon in regards to specific date and time. We will arrange for this to be done at [facility] ( in [place], [place]) I asked that he call us back if he has any questions concerning this. documented in this encounter Plan of Treatment Upcoming Encounters Date Type Department Care Team (Late st Contact Info) Description 05/24/2025 11:00 AM EDT Office Visit Radiation Oncology at [address] [phone] Jesse Mcmahan MD [facility] [place] [address] Scheduled Referrals Name Type Priority Associated Diagnoses Orde r Schedule Referral to Physical Therapy Outpatient Referral Routine Malignant neoplasm of base of tongue Ordered: 06/08/2014 documented as of this encounter Visit Diagnoses Diagnosis Malignant neoplasm of base of tongue- Primary documented in this encounter Care Teams Global Marketing Manager Relationship Specialty Start Date End Date Bj Alves MD [address] [place] [phone] PCP - General 06/25/10 04/02/23 documented as of this encounter
--- OUTSIDE RECORDS SUMMARY | 2024-08-01 15:28 | XMS_ITS | Encounter Summary ---
Author Organization [facility] [place] [address] Care Team Providers Care Radar Systems Engineer Name Role Phone Bj Alves MD Primary Care Provider [phone] Reason for Visit * Reason Comments Radiation Follow-up head and neck cancer Encounter Details Date Type Department Care Team (Late st Contact Info) Description 07/03/2016 4:00 PM EST Office Visit Radiation Oncology at [address] [phone] Shannan Johnson APRN Head and neck cancer [...] as of this encounter Progress Notes * Shannan Johnson APRN - 07/03/2016 4:00 PM EST S: Patient called clinic to report that he had pain involving the left side of his palate. He came into clinic for brief evaluation because he was not sure if he had thrush or infection. He has not had any fever, no chills, no cough, no cold. 0: No fever, no thrush, no erythema of OP, palate intact, no leukplakia in oral cavity. Tongue is mobile. Teeth in good repair. + mild trismus A; no evidence of thrush/infection. P- Patient is to call if symptom persists and we will arrange of endoscopic exam documented in this encounter Plan of Treatment Upcoming Encounters Date Type Department Care Team (Late st Contact Info) Description 05/24/2025 11:00 AM EDT Office Visit Radiation Oncology at [address] [phone] Jesse Mcmahan MD [facility] [place] [address] documented as of this encounter Visit Diagnoses Diagnosis Head and neck cancer Malignant neoplasm of head, face, and neck documented in this encounter Care Teams Radar Systems Engineer Relationship Specialty Start Date End Date Bj Alves MD [address] [place] [phone] PCP - General 06/25/10 04/02/23 documented as of this encounter
--- OUTSIDE RECORDS SUMMARY | 2024-08-01 15:28 | XMS_ITS | Encounter Summary ---
Author Organization [facility] [place] [address] Care Team Providers Care Offset Assistant Press Operator Name Role Phone Bj Alves MD Primary Care Provider Reason for Referral * Physical Therapy (Routine) - Closed by system - Referral Specialty Diagnoses / Procedures Referred By Contac t Referred To Contact Physical Therapy Diagnoses Cancer of tongue Shannan Johnson APRN [facility] [place] [address] Referral ID Status Reason Start Date Expiration Date Visits Requested Visits Authorized [id number] Closed by system - Referral Evaluate and Treat 4 11/22/2014 1 1 Reason for Visit * Reason Comments Radiation Follow-up head and neck/tongue primary Encounter Details Date Type Department Care Team (Late st Contact Info) Description 05/25/2014 9:00 AM EDT Follow-Up Radiation Oncology at [address] [phone] Shannan Johnson APRN Cancer of tongue (Primary Dx) Discharge Disposition: Home [...] Reading Time Taken Comments Blood Pressure 140/85 05/25/2014 8:55 AM EDT Pulse 65 05/25/2014 8:55 AM EDT Temperature 36.6 ??C (97.9 ??F) 05/25/2014 8:55 AM ED T Respiratory Rate 18 05/25/2014 8:55 AM EDT Oxygen Saturation 98% 05/25/2014 8:55 AM EDT Inhaled Oxygen Concentration - - Weight 93.9 kg (207 lb) 05/25/2014 8:55 AM EDT Height - - Body Mass Index 30.66 05/12/2013 2:49 PM EDT documented in this encounter Progress Notes * Shannan Johnson, DIVISION DIRECTOR - 05/25/2014 8:12 AM EDT Subjective: Patient ID: Sebastian Wyatt is a 59 y.o. male.who was treated for cancer of the left base of tongue who is in clinic per his request due to complaints related to his neck. 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 1 PPD x 38 yrs. Quit 08/2011. Developed odynophagia early 11/2011, abx did not improve, . Referred to ENT. He does note some coughing in the morning ove the past year. Stagin12/09/11 CT H&N with contrast ([facility]): Mixed attenuation mass with lare low density areas suggesting necrotic change present deep to anterior aspect L SCM. Mass smoothly marginated, max 3.3 x 5.2 cm. 11/27/11 PET-CT ([facility]): Despite premedication, severe claustrophobia [...] recurrence. 03/07/2014--CT chest--no evidence of disease recurrence. Patient Active Problem List Diagnosis Code [...] WITH BIOPSY performed by BECKY GANN at [facility] OR ??? Laryngoscopy, dirct, op scop, exc tumr 12/12/2011 LARYNGOSCOPY, DIRECT, EXCISION OF TUMOR, CORD STRIPPING, MICRO performed by BECKY GANN at [facility] OR ??? Scan doc: pet scan 01/16/2012 PET SCAN performed by BECKY REYNOLDS-IRIS at [facility] ??? 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 Lives near [facility] with , 10yo daughter, 2 horses, 2 dogs. Advance Directive: Not on file. See advance care planning note Interval History: Sebastian Wyatt is being seen in clinic due to complaint of increase pain/swelling involving the left side of his neck. He completed radiotherapy two years ago. Diagnosed with psoriatic arthritis And is being followed by Arcade Technician. He continues on MTX but no longer on prednisone. Currently he notes the following symptoms: Symptom Description Ongoing Intervention Dysphagia He reports some increase in chocking when swallowing. RESEARCH MECHANIC evaluation was done--see scanned documents No new intervention Odynophagia Chronic pain associated with eating, using no pain medication as he does not feel that it is necessary Not taking any medication for pain Trismus Improving, doing exercises. PT exercises --Still going to [facility] Weight Loss 185 => 207 today -- Diet Modifications Eating most foods unchanged Neck Symptoms L shoulder pain and increase in left neck pain. . Chronic at some level, intermittentflares. 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 MTX, Patient is currently not working. He is on leave after having a fall at work that caused major trauma to his left leg. He continues to have difficulty with fatigue, insomnia. He has sleep apnea as well and does not use CPAP which can also contribute to his fatigue but he has not been able to tolerate the masks. His PCP has been monitoring his TSH. He reports occ lightheadedness. He does indicate that a carotid duplex has been done in the past. Review of Systems Constitutional: Positive for fatigue. Negative for fever, diaphoresis, appetite change and unexpected weight change. HENT: Positive for trouble swallowing and tinnitus. Negative for sore throat, mouth sores and dental problem. Neck stiffness and intermittent increase in swelling left side of neck associated with increased pain. Eyes: Negative. Tearing of eyes--dryness resolved Respiratory: [...] months ago. Skin: Negative. Neurological: Negative for tremors. Balance is difficult when walking on uneven surfaces and it creates pain involving his legs Hematological: Negative. Psychiatric/Behavioral: Positive for sleep disturbance. Negative for dysphoric mood. The patient isnot nervous/anxious. Filed Vitals: 05/25/14 0855 BP: 140/85 Pulse: 65 Temp: 36.6 ??C (97.9 ??F) TempSrc: Oral Resp: 18 Weight: 93.895 kg (207 lb) SpO2: 98% Objective: Physical Exam Vitals reviewed. Constitutional: He is oriented to person, place, and time. He appears well- developed and well-nourished. No distress. HENT: Head: Normocephalic. Mouth/Throat: Oropharynx is clear and moist. No oropharyngeal exudate. Tongue is midline and mobile No mucositis No lymphedema under chin--left neck fibrosis Restricted ROM to the left Eyes: Conjunctivae normal are normal. No scleral icterus. Neck: Carotid bruit is present. Decreased range of motion present. Cardiovascular: Normal rate, regular rhythm and [...] 0.95 SED -R 4 Assessment and Plan: Mr Wyatt is a 59 year old man treated with chemoradiation for cancer base of tongue: He is havingincreased discomfort involving the left side of his neck. We will arrange for a CT scan of his neckfor further evaluation. If results are benign we will arrange for PT for management of fibrosis involving his neck--patient prefers [facility] in [place] Pain: pain involving his neck, leg and from psoriatic arthritis. He has been started on methotrexate for his psoriatic arthritis pain. He prefers to not use pain medication. Pain with swallowing mildly increased-ongoing monitoring. Hypothyroidism: PCP is now managing his hypothyroidism documented in this encounter Procedure Notes * Provider, Scanning - 06/01/2014 12:00 AM EDTAssociated Order(s): SCAN DOC: CT SCAN * Provider, Scanning - 05/25/2014 1:46 PM EDTAssociated Order(s): SCAN DOC: CT SCAN documented in this encounter Plan of Treatment Upcoming Encounters Date Type Department Care Team (Late st Contact Info) Description 05/24/2025 11:00 AM EDT Office Visit Radiation Oncology at [address] [phone] Jesse Mcmahan MD [facility] [place] [address] Scheduled Referrals Name Type Priority Associated Diagnoses Orde r Schedule Referral to Physical Therapy Outpatient Referral Routine Cancer of tongue Ordered: 05/26/2014 documented as of this encounter Procedures Procedure Name Priority Date/Time Associated Diagnosis Comments CT SCAN (SCAN) 06/01/2014 12:[address] SCAN (SCAN) 05/25/2014 1:46 PM EDT documented in this encounter Results * SCAN DOC: CT SCAN (06/01/2014 12:00 AM EDT) Anatomical Region Laterality Modality Other Narrative 06/01/2014 2:20 PM EDT Procedure Note Provider, Scanning - 06/01/2014 12:00 AM EDT Scanning Provider MEDIA MGR SCAN EXT O RDR/RSLT * SCAN DOC: CT SCAN (05/25/2014 1:46 PM EDT) Anatomical Region Laterality Modality Other Narrative 05/25/2014 2:10 PM EDT Procedure Note Provider, Scanning - 05/25/2014 1:46 PM EDT Scanning Provider MEDIA MGR SCAN EXT O RDR/RSLT documented in this encounter Visit Diagnoses Diagnosis Cancer of tongue- Primary Malignant neoplasm of tongue, unspecified site documented in this encounter Care Teams Offset Assistant Press Operator Relationship Specialty Start Date End Date Bj Alves MD [address] [place] [phone] PCP - General 06/25/10 04/02/23 documented as of this encounter
--- OUTSIDE RECORDS SUMMARY | 2024-08-01 15:28 | XMS_ITS | Encounter Summary ---
Author Organization [facility] [place] [address] Care Team Providers Care Telesales Representative Name Role Phone Bj Alves MD Primary Care Provider [phone] Encounter Details Date Type Department Care Team (Late Contact Info) Description 03/10/2017 Telephone Radiation Oncology at [address] [phone] Gayle Lara RN Social History Tobacco Use [...] Telephone Encounter - Gayle Lara RN - 03/10/2017 9:05 AM EDT Response from Shannan Johnson APRN regarding trigger point injections at pain clinic. I already called his doctor to let them know that it was ok for him to have the treatment. Can you let Salvador know please. Thank you Shannan Telephone call to patient to let him know that Shannan has provided approval for trigger point injections and that she has contacted the pain clinic with this information. He states: thanks. documented in this encounter Plan of Treatment Upcoming Encounters Date Type Department Care Team (Late st Contact Info) Description 05/24/2025 11:00 AM EDT Office Visit Radiation Oncology at [address] [phone] Jesse Mcmahan MD [facility] [place] [address] documented as of this encounter Visit Diagnoses Not on filedocumented in this encounter Care Teams Telesales Representative Relationship Specialty Start Date End Date Bj Alves MD [address] [place] [phone] PCP - General 06/25/10 04/02/23 documented as of this encounter
--- OUTSIDE RECORDS SUMMARY | 2024-08-01 15:28 | XMS_ITS | Encounter Summary ---
Author Organization [facility] Address [facility] [place] [address] Care Team Providers Care Chocolate Packer Name Role Phone Bj Alves MD Primary Care Provider Encounter Details Date Type Department Care Team (Latest Contact Info) Description 12/24/2017 - 12/24/2017 11:59 PM EDT Hospital Encounter Radiology Library at [facility] [place] [phone] Shannan Johnson, HOSPICE EXECUTIVE DIRECTOR Discharge Disposition: Home Social History Tobacco Use [...] capsule Take 1 capsule by mouth daily. aspirin 81 mg Tablet, Delayed Release (E.C.) Take 81 mg by mouth daily. 12/21/2018 apremilast (OTEZLA ORAL) Take by mouth 2 times daily. 12/21/2018 amLODIPine (NORVASC) 10 mg Tablet Take 10 mg by mouth. 018 Calcitriol 3 mcg/gram Ointment Apply 1 Film topically 2 times daily. 12/21/2018 documented as of this encounter Plan of Treatment Upcoming Encounters Date Type Department Care Team (Late st Contact Info) Description 05/24/2025 11:00 AM EDT Office Visit Radiation Oncology at [address] [phone] Jesse Mcmahan MD [facility] [place] [address] documented as of this encounter Procedures Procedure Name Priority Date/Time Associated Diagnosis Comments FILM LIBRARY STORAGE ONLY CT SPINE Routine 12/24/2017 12:00 AM EDT documented in this encounter Results * Film Library- Storage Only CT Spine (12/24/2017 12:00 AM EDT) Narrative TEJA - 01/01/2018 4:15 PM EDT This exam is for storage only and is auto-finalizing. Shannan Johnson APRN IMG FILM LIBRARY ORD ERABLES [place], [place] documented in this encounter Visit Diagnoses Not on filedocumented in this encounter Care Teams Chocolate Packer Relationship Specialty Start Date End Date Bj Alves MD [address] [place] [phone] PCP - General 06/25/10 04/02/23 documented as of this encounter
--- OUTSIDE RECORDS SUMMARY | 2024-08-01 15:28 | XMS_ITS | Encounter Summary ---
Author Organization [facility] [place] [address] Care Team Providers Care Mr Teacher Name Role Phone Bj Alves MD Primary Care Provider [phone] Encounter Details Date Type Department Care Team (Late Contact Info) Description 03/07/2014 Orders [place] [phone] Jesse Mcmahan MD [facility] [place] [address] Social History Tobacco Use Types Packs/Day Years [...] EDT Office Visit Radiation Oncology at [address] [phone] Jesse Mcmahan MD [facility] [place] [address] documented as of this encounter Procedures Procedure Name Priority Date/Time Associated Diagnosis Comments FILM LIBRARY STORAGE ONLY CT CHEST Routine 03/07/2014 2:45 PM EDT documented in this encounter Results * Film Library- Storage only CT Chest (03/07/2014 2:45 PM EDT) Anatomical Region Laterality Modality Chest Other 03/07/2014 2:45 PM EDT Narrative 03/16/2014 2:50 PM EDT This is a Non-reportable exam Procedure Note 03/16/2014 This is a Non-reportable exam Jesse Mcmahan MD [facility] FILM LIBRARY ORD ERABLES documented in this encounter Visit Diagnoses Not on filedocumented in this encounter Care Teams Mr Teacher Relationship Specialty Start Date End Date Bj Alves MD [address] [place] [phone] PCP - General 06/25/10 04/02/23 documented as of this encounter
--- OUTSIDE RECORDS SUMMARY | 2024-08-01 15:28 | XMS_ITS | Encounter Summary ---
Author Organization Formerly [facility] [place] [address] Care Team Providers Care Area Plant Manager Name Role Phone Bj Alves MD Primary Care Provider [phone] Encounter Details Date Type Department Care Team (Late Contact Info) Description 03/09/2017 Telephone Radiation Oncology at [address] [phone] Gayle Lara RN Social History Tobacco Use [...] Telephone Encounter - Gayle Lara RN - 03/09/2017 5:06 PM EDT Telephone call from Leonor at [facility] pain clinic stating that they plan to see patient tomorrow, 03/10/17for trigger point injections to the levator scapulae muscles bilaterally. She is calling as they need to obtain oncology provider approval/clearance to give patient trigger point injections. I let her know that I will forward this to provider and return call with response. They can be reached back at [phone]. documented in this encounter Plan of Treatment Upcoming Encounters Date Type Department Care Team (Late st Contact Info) Description 05/24/2025 11:00 AM EDT Office Visit Radiation Oncology at [address] [phone] Jesse Mcmahan MD [facility] [address] RADIATION [place] [address] documented as of this encounter Visit Diagnoses Not on filedocumented in this encounter Care Teams Area Plant Manager Relationship Specialty Start Date End Date Bj Alves MD [address] [place] [phone] PCP - General 06/25/10 04/02/23 documented as of this encounter
--- OUTSIDE RECORDS SUMMARY | 2024-08-01 15:28 | XMS_ITS | Encounter Summary ---
Author Organization [facility] [place] [address] Care Team Providers Care Restaurant Hourly Team Member Name Role Phone Bj Alves MD Primary Care Provider [phone] Reason for Referral * Consultation (Routine) - Closed Specialty Diagnoses / Procedures Referred By Sheila colvin Referred To Contact Rheumatology Diagnoses Psoriatic arthritis Shannan Johnson APRN [facility] RADIATION ONCOLOGY [address] Rheumatology [address] [place] [phone] Referral ID Status Reason Start Date Expiration Date V isits Requested Visits Authorized [id number] Closed Consult, Test & Treat 12/07/2017 12/07/2018 1 1 Reason for Visit * Reason Comments Radiation Follow-up head and neck cancer Encounter Details Date Type Department Care Team (Late st Contact Info) Description 12/03/2017 3:15 PM EDT Office Visit Radiation Oncology at [address] [phone] Shannan Johnson APRN Head and neck cancer; Psoriatic arthritis Social History Tobacco Use Types Packs/Day Years [...] Sign Reading Time Taken Comments Blood Pressure 133/79 12/03/2017 3:27 PM EDT Pulse 89 12/03/2017 3:27 PM EDT Temperature 36.9 ??C (98.4 ??F) 12/03/2017 3:27 PM ED T Respiratory Rate 18 12/03/2017 3:27 PM EDT Oxygen Saturation 97% 12/03/2017 3:27 PM EDT Inhaled Oxygen Concentration - - Weight 104 kg (229 lb 3.2 oz) 12/03/2017 3:27 PM EDT Height - - Body Mass Index 33.83 04/17/2017 2:16 PM EDT documented in this encounter Progress Notes * Shannan Johnson, BARREL LINER - 12/03/2017 3:15 PM EDT Radiation Oncology Follow Up Note Patient Name: Sebastian Wyatt Primary MD: Bj Alves MD Referring MD: jB Alves Other Involved Physicians: Butch Catalan Patient [...] Staging: ?? 12/09/11 CT H&N with contrast ([facility]): Mixed attenuation mass with lare low density areas suggesting necrotic change present deep to anterior aspect L SCM. Mass smoothly marginated, max 3.3 x 5.2 cm. ?? 11/27/11 PET-CT ([facility]): Despite premedication, severe claustrophobia allowed this can [...] ??? 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 DIFFICULT AIRWAY 411054 ??? Dysphagia, unspecified 787.20 No Known Allergies Medications 12/07/17 1105 Medication Sig Taking? aspirin 81 mg Tablet, Delayed Release (E.C.) Take 81 mg by mouth daily. Yes apremilast (OTEZLA ORAL) Take by mouth. Yes amLODIPine (NORVASC) 10 mg Tablet Take 10 mg by mouth. Yes rosuvastatin (CRESTOR) 10 mg Tablet Take 10 mg by mouth daily. Yes tamsulosin (FLOMAX) 0.4 mg Capsule, Sust. Release 24 hr Take 0.4 mg by mouth daily. Yes betamethasone dipropionate (DIPROLENE) 0.05 % Ointment Apply topically 2 times daily. Yes celecoxib (CELEBREX) 100 mg capsule Take 100 mg by mouth daily as needed. Yes levothyroxine (SYNTHROID) 100 mcg tablet Take 175 mcg by mouth daily. Indications: Hypothyroidism Yes amlodipine-benazepril (LOTREL) 5-10 mg per capsule Take 2 capsules by mouth daily. Yes Calcitriol 3 mcg/gram Ointment Apply 1 Film topically 2 times daily. Past Medical History: Diagnosis Date ??? Acid reflux ??? Arthritis ??? Injury of left knee 2014 fall at work ??? Psoriasis ??? Psoriatic arthritis ??? Thyroid dysfunction Past Surgical History: Procedure Laterality Date ??? CARPAL TUNNEL RELEASE rt ??? PET SCAN (SCAN) 01/16/2012 PET SCAN performed by RESOURCE, ANESTHESIA-IRIS at [facility] ??? PET SCAN (SCAN) 07/06/2012 PET SCAN performed by Anesthesia-Iris Resource at [facility] ??? PRO LARYNGOSCOPY, DIRCT, OP SCOP, EXC TUMR 12/12/2011 LARYNGOSCOPY, DIRECT, EXCISION OF TUMOR, CORD STRIPPING, MICRO performed by BECKY GANN at [facility] ??? PRO LARYNGOSCOPY, DIRCT, OP SCOPE, BIOPSY 12/12/2011 LARYNGOSCOPY, MICROSCOPE, WITH BIOPSY performed by BECKY GANN at [facility] OR ROS nterval History: Sebastian Wyatt returns for routine follow up having completed radiotherapy approximately 5.5 years prior. Currently he notes the following symptoms: Symptom Description Ongoing Intervention Dysphagia Most foods tolerable, difficulty with chunkier foods, tubing drier foods. Not seeing HARNESS BRUSHER at thistime. Odynophagia Rare Trismus Stable limitation, doing exercises. PT exercises Weight Loss Weight stable Diet Modifications Eating most foods, with moderate dysgeusia and moderate xerostomia Neck Symptoms ?? Increased tightness of left side of neck extending to jaw. Left shoulder pain is minimal at this time. Neurology: EMG indicates neuropathy. ?? When he tries to manipulate his neck there are spasms He had nerve block of right neck with significant improvement of previous pain Dental Issues Good dental care every six months. He had a recent tooth on the right side that fell out Following with dentistry, using [place] toothpaste Otalgia/Referred Pain Intermittent tinnitus. Xerostomia Moderate to severe xerostomia, dysgeusia still moderate. Other Pain Pain associated knees, ankles and shoulders due to psoriatic arthritis. Stable. F/U rheumatology constitutional well Lungs/chest--no shortness of breath, no persistent cough GI--negative --negative Skin-- psoriasis Neuro--+ neuropathy, ambulatory. Psych--mood positive Physical Examination: Oncology Vitals 12/03/2017 Weight (kg) 103.964 kg Weight (lb) 229 lb 3.2 oz Height BSA (Calculated - sq m) BMI (Calculated) Temp 98.4 Temp src 1 Pulse 89 Heart Rate Source Right Resp 18 BP 133/79 BP Location Left arm Patient Position Sitting SpO2 97 Pain Level 0 Karnofsky Score [place] Physical Exam Constitutional: He is oriented to person, place, and time. He appears well- developed and well-nourished. HENT: Visual inspection of OC and OP revealed no evidence of suspicious masses or lesions. Palpation reveals posterior aspect of oral tongue soft without masses or lesions. Dentition in good repair Moisture moderate. No thrush. Eyes: Conjunctivae and EOM are normal. Pupils are equal, round, and reactive to light. No scleral icterus. Neck: No tracheal deviation present. Palpation reveals no adenopathy in cervical, SCLV, ICLV chance basins. He has fibrosis of the left neck that is moderate, less so on the right neck. He has no tenderness to palpation along the SCLV basin and up to level II of the left neck. Cardiovascular: Normal rate, regular rhythm and normal heart sounds. Exam reveals no gallop and no friction rub. No murmur heard. Pulmonary/Chest: Effort normal and breath sounds normal. No respiratory distress. He has no wheezes. He has no rales. He exhibits no tenderness. Musculoskeletal: He exhibits no edema. Ambulatory with no difficulty Neurological: He is alert and oriented to person, place, and time. No cranial nerve deficit. Coordination normal. Skin: Skin is warm and dry. Rash noted. psoriasis Psychiatric: He has a normal mood and affect. His behavior is normal. Judgment and thought content normal. Vitals reviewed. Interval Imaging: none Assessment/Plan: ?? Squamous cell carcinoma of the BOT ?? Disease Status: MARCO ?? KPS: 80% ?? Radiation late effects ?? Xerostomia: Moderate, using water/biotene to assist ?? Dysphagia: denies gary dysphagia. Tolerating most foods, primary limitation is xerostomia. ?? Pain: Resolved ?? 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 At this point the fibrosis appears to be increasing and there is left tongue numbness. We will do CT of neck to evaluate further ?? Arthritis: psoriatic arthritis, managed by Rheumatology and patient requests consult with [facility] rheumatology ?? FU: follow up with radiation oncology per [facility] algorithm CT of neck Get rheumatology consult-- seen every three month on otezla --coordinate with cardiovascular documented in this encounter Plan of Treatment Upcoming Encounters Date Type Department Care Team (Late st Contact Info) Description 05/24/2025 11:00 AM EDT Office Visit Radiation Oncology at [address] [phone] Jesse Mcmahan MD [facility] [place] [address] Scheduled Referrals Name Type Priority Associated Diagnoses Order Schedule Referral to Rheumatology Outpatient Referral Routine Psoriatic arthritis Ordered: 12/07/2017 documented as of this encounter Procedures Procedure Name Priority Date/Time Associated Diagnosis Comments CT SCAN (SCAN) 12/24/2017 12:00 AM EDT documented in this encounter Results * SCAN DOC: CT SCAN (12/24/2017 12:00 AM EDT) Anatomical Region Laterality Modality Other Narrative 12/24/2017 12:00 AM EDT Ordered by an unspecified provider. Scanning Provider MEDIA MGR SCAN EXT O RDR/RSLT documented in this encounter Visit Diagnoses Diagnosis Head and neck cancer Malignant neoplasm of head, face, and neck Psoriatic arthritis Psoriatic arthropathy documented in this encounter Care Teams Restaurant Hourly Team Member Relationship Specialty Start Date End Date Bj Alves MD [address] [place] [phone] PCP - General 06/25/10 04/02/23 documented as of this encounter
--- OUTSIDE RECORDS SUMMARY | 2024-08-01 15:28 | XMS_ITS | Encounter Summary ---
Author Organization [facility] [place] [address] Care Team Providers Care Validation Consultant Name Role Phone Bj Alves MD Primary Care Provider [phone] Reason for Visit * Reason Comments Follow-up Encounter Details Date Type Department Care Team (Late st Contact Info) Description 03/21/2013 3:00 PM EDT [place] [address] Rio Gann MD [facility] [place] [address] Cancer of base of tongue (Primary Dx) [...] as of this encounter Progress Notes * Rio Gann MD - 03/21/2013 4:58 PM EDT [facility] Follow up note Sebastian Wyatt is a 57 y.o. male seen in follow-up for head and neck review. Primary: Left base of tongue Stage: [id number] Treatments: Enrolled on RTOG 1016, randomized to cetuximab arm. Received 70 Gy completed 04/06/12 New issues since last visit: Some reflux, recently restarted omeprazole. CT neck and chest was donewith no evidence of local/regional/distant mets. Swallowing stable. Still with xerostomia but improving. Trouble with dry mouth when using his CPAP. PROBLEM LIST: Patient Active Problem List Diagnosis Code ??? [...] ??? 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 DIFFICULT AIRWAY 064738 ??? Dysphagia, unspecified 787.20 ??? 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 Acid reflux ??? Thyroid dysfunction ??? Arthritis ??? Psoriasis SOCIAL HISTORY: History Substance Use Topics ??? Smoking status: Former Smoker -- 1.0 packs/day for 38 years Quit date: 08/06/2011 ??? Smokeless tobacco: Never Used ??? Alcohol Use: 0.6 oz/week 1 Glasses of wine per week rarely one glass of wine occasionally MEDICATIONS: Current Outpatient Prescriptions on File Prior to Visit Medication Status Sig Dispense Refill ??? celecoxib [...] Active Take 10 mg by mouth daily. ALLERGIES: No Known Allergies ROS: Pertinent positive findings discussed above. No other findings on review of constitutional visual, cardiovascular, respiratory, gastrointestinal, genitourinary, musculoskeletal, dermatologic, neurological, psychiatric, endocrine, hematologic or immunologic systems. PHYSICAL EXAMINATION: There were no vitals filed for this visit. Wt Readings from Last 3 Encounters: 03/21/13 87.6 kg (193 lb 2 oz) 02/24/13 88.451 kg (195 lb) 01/20/13 91.4 kg (201 lb 8 oz) General: Well developed, no distress Head/face: Normocephalic, atraumatic Oral cavity: Normal exam of the lips, teeth/gums, floor of mouth, tongue. Normal oral mucosa. Normal palate. Oropharynx: Normal soft palate, tonsils, lateral pharyngeal wall, posterior pharynx. Neck: No adenopathy, no masses, normal thyroid, normal salivary gland exam. Trachea midline. Resp: Normal speech, no stridor, normal respirations. Skin: Normal skin survey of the head and neck. MSK: No trismus, normal neck range of motion Neuro: AxOx3; CN II-XII is grossly intact Psych: Normal mood and affect. Responds appropriately to questions. PROCEDURES: Flexible Fiberoptic Laryngoscopy: Topical anesthetic and decongestant applied to the nasal cavity. Patient tolerated the procedure well without any complications. Nasal Cavity: Normal Nasopharynx: Normal Oropharynx: Normal with no recurrence Larynx: Normal Hypopharynx: Normal REVIEW OF IMAGES: CT neck reviewed - no evidence of recurrence. ASSESSMENT/RECOMMENDATIONS: MARCO RTC per grid I appreciate the opportunity to be involved in Mr. Wyatt's care. Please do not hesitate to contact me at [email or web address] (office), (page drum dyeing machine operator) or [phone] (mobile) if you have any questions. RIO GANN MD 03/21/2013 documented in this encounter Plan of Treatment Upcoming Encounters Date Type Department Care Team (Late st Contact Info) Description 05/24/2025 11:00 AM EDT Office Visit Radiation Oncology at [address] [phone] Jesse Mcmahan MD [facility] [place] [address] documented as of this encounter Visit Diagnoses Diagnosis Cancer of base of tongue- Primary Malignant neoplasm of base of tongue documented in this encounter Care Teams Validation Consultant Relationship Specialty Start Date End Date Bj Alves MD [address] [place] [phone] PCP - General 06/25/10 04/02/23 documented as of this encounter
--- OUTSIDE RECORDS SUMMARY | 2024-08-01 15:28 | XMS_ITS | Encounter Summary ---
Author Organization Formerly [facility] [place] [address] Care Team Providers Care Piece Worker Name Role Phone Bj Alves MD Primary Care Provider [phone] Encounter Details Date Type Department Care Team (Late Contact Info) Description 03/02/2017 Orders Only [place] [address] Shannan Johnson APRN Cancer of head and [...] EDT Office Visit Radiation Oncology at [address] [phone] Jesse Mcmahan MD [facility] [place] [address] documented as of this encounter Visit Diagnoses Diagnosis Cancer of head and neck documented in this encounter Care Teams Piece Worker Relationship Specialty Start Date End Date Bj Alves MD [address] [place] [phone] PCP - General 11/23/10 8/31/23 documented as of this encounter
--- OUTSIDE RECORDS SUMMARY | 2024-08-01 15:28 | XMS_ITS | Encounter Summary ---
Author Organization [facility] [address] Care Team Providers Care Negative Spotter Name Role Phone Bj Alves MD Primary Care Provider [phone] Encounter Details Date Type Department Care Team (Late Contact Info) Description 03/10/2013 Orders Only [place] [address] Butch Catalan MD [address] [place] [address] [place] [address] Social History Tobacco Use Types Packs/Day Years [...] EDT Office Visit Radiation Oncology at [address] [phone] Jesse Mcmahan MD [facility] [place] [address] documented as of this encounter Procedures Procedure Name Priority Date/Time Associated Diagnosis Comments FILM LIBRARY STORAGE ONLY CT SPINE Routine 03/10/2013 11:33 AM EDT documented in this encounter Results * Film Library- Storage only CT Spine (03/10/2013 11:33 AM EDT) 03/10/2013 11:3 3 AM EDT Narrative RAD - 03/20/2014 7:02 PM EDT This is a non-reportable exam. Procedure Note Deven Alcantar - 03/20/2014 This is a non-reportable exam. Butch Catalan MD [facility] FILM LIBRARY ORD ERABLES [facility] [address] [facility] [place] [address] documented in this encounter Visit Diagnoses Not on filedocumented in this encounter Care Teams Negative Spotter Relationship Specialty Start Date End Date Bj Alves MD [address] [place] [phone] PCP - General 06/25/10 04/02/23 documented as of this encounter
--- OUTSIDE RECORDS SUMMARY | 2024-08-01 15:28 | XMS_ITS | Encounter Summary ---
Author Organization Formerly [facility] [place] [address] Care Team Providers Care Rehabilitation Services Counselor Name Role Phone Bj Alves MD Primary Care Provider [phone] Encounter Details Date Type Department Care Team (Late st Contact Info) Description 03/04/2017 Telephone [place] [phone] Shannan Johnson, HERBERT Social History Tobacco Use Types Packs/Day Years [...] Telephone Encounter - Shannan Johnson APRN - 03/04/2017 3:52 PM EDT Return call to patient due to recurrent right neck pain. Patient indicates that the pain is gone right now. In January he had a sudden very sharp pain to the right side of his neck which was present for severaldays. The pain was aggravated by any movements of his neck.. He had his usual left neck pain but the right was more severe. The second episode followed his doing archery. Again for several days he had severe pain to the right side of his neck and over time it abated. The third episode which was recent the pain was also severe. He had a few oxycodone that was left over from his cancer treatment and he took one at night to sleep and used a neck brace. This helped only briefly. He then tried gabapentin but the side effect of unsteadiness, dizziness and fatigue were bothersome so he only took it at night for a total dose of 200 mg with some relief. His PCP has referred him to the pain clinic at [facility] and he has an appointment 04/08 He does not want imaging unless it is necessary. We discussed that he is due for his rad onc followup and will ask vascular ultrasound technologist to schedule him as soonas possible with either myself of Dr Mcmahan. documented in this encounter Plan of Treatment Upcoming Encounters Date Type Department Care Team (Late st Contact Info) Description 05/24/2025 11:00 AM EDT Office Visit Radiation Oncology at [address] [phone] Jesse Mcmahan MD [facility] [place] [address] documented as of this encounter Visit Diagnoses Not on filedocumented in this encounter Care Teams Rehabilitation Services Counselor Relationship Specialty Start Date End Date Bj Alves MD [address] [place] [phone] PCP - General 06/25/10 04/02/23 documented as of this encounter
--- OUTSIDE RECORDS SUMMARY | 2024-08-01 15:28 | XMS_ITS | Encounter Summary ---
Author Organization Formerly [facility] [place] [address] Care Team Providers Care Arabic Teacher Name Role Phone Bj Alves MD Primary Care Provider [phone] Encounter Details Date Type Department Care Team (Late st Contact Info) Description 03/02/2017 Telephone Radiation Oncology at [address] [phone] Marcelina Edwards RN Social History Tobacco Use [...] Miscellaneous Notes * Telephone Encounter - Marcelina Rizvi RN - 03/02/2017 4:02 PM EDT Radiation Oncology Nurse Telephone Note [facility], [place] ----- Message from Maria Guadalupe Rucker sent at 03/02/2017 8:13 AM EDT ----- Regarding: Please Call Contact: Salvaodr called with some question about pain. He has been in more pain with his scarring lately. Thanks, Maria Guadalupe 03/02/17 3:55 PM Telephone call to patient . He states that he has been experiencing pain on his left side of neck for a long time. He has a new pain that started about a month ago on his right side of his neck that comes and goes and is quite painful. The last episode lasted him the entire weekend that kept him in the house. He bought a neck brace at the drug store to help support his neck because he finds that moving his neck makes it worse.He has been taking his gabapentin and some oxycodone that he still had from an old prescription that is helping some . He takes it more at night. The pain is more on the outside of his neck and he can feel that it is thicker under his skin. The sharp pain radiaites down to his right shoulder. He states that he is eating OK because the pain is not inside his throat. He hasn't done any home PT exercised recently because he is afraid it will cause pain. Currently he is not having the pain but he feels that it is important to address since this this new pain has been coming and going with 3 episodes since January. He asked for a referral to the [facility] pain clinic. He states that Tuesday 03/13 he will be leaving the area and away for 4- 5 days. Intervention: I informed pt that Dr Mcmahan will be notified of his pain ( via this note) and he will be informed as to what course of action Dr Mcmahan feels is necessary. Patient verbalized understanding of these instructions and agrees with this plan. Amendment: upon routing this note to Dr Mcmahan, I received alert via in basket that he in on vacation. Therefore this note was routed to Shannan Johnson APRN and cc'd to Dr Mcmahan. Shannan replied that she recommends CT of the neck on this patient to further evaluate his pain. 17:45 I called pt back with Shannan's recommendation. He pleasantly voiced concern of having a CT scan and the addition radiation exposure he will get. He states, I don't let them do dental x-rays either, I've had enough radiation. He asked that Shannan call him so that they can discuss this. He is very sure that this new pain is the same pain that he has on the left side of his neck from scarring but just more intense. He wants a referral to the pain clinic. I reassured him that his concern will be communicated to Shannan. Pt expressed appreciation for this call. documented in this encounter Plan of Treatment Upcoming Encounters Date Type Department Care Team (Late st Contact Info) Description 05/24/2025 11:00 AM EDT Office Visit Radiation Oncology at [address] [phone] Jesse Mcmahan MD [facility] [place] [address] documented as of this encounter Visit Diagnoses Not on filedocumented in this encounter Care Teams Arabic Teacher Relationship Specialty Start Date End Date Bj Alves MD [address] [place] [phone] PCP - General 06/25/10 04/02/23 documented as of this encounter
--- OUTSIDE RECORDS SUMMARY | 2024-08-01 15:28 | XMS_ITS | Encounter Summary ---
Author Organization [facility] [place] [address] Care Team Providers Care Beamer Operator Name Role Phone Bj Alves MD Primary Care Provider [phone] Encounter Details Date Type Department Care Team (Late st Contact Info) Description 03/03/2017 Telephone [place] [phone] Shannan Johnson APRN Social History Tobacco Use [...] Telephone Encounter - Shannan Johnson APRN - 03/03/2017 9:07 AM EDT Call to patient to discuss his neck pain. Message left for patient to return the call documented in this encounter Plan of Treatment Upcoming Encounters Date Type Department Care Team (Late st Contact Info) Description 05/24/2025 11:00 AM EDT Office Visit Radiation Oncology at [address] [phone] Jesse Mcmahan MD [facility] [place] [address] documented as of this encounter Visit Diagnoses Not on filedocumented in this encounter Care Teams Beamer Operator Relationship Specialty Start Date End Date Bj Alves MD [address] [place] [phone] PCP - General 06/25/10 04/02/23 documented as of this encounter
--- OUTSIDE RECORDS SUMMARY | 2024-08-01 15:28 | XMS_ITS | Encounter Summary ---
Author Organization [facility] [place] [address] Care Team Providers Care Direct Service Provider Name Role Phone Bj Alves MD Primary Care Provider [phone] Encounter Details Date Type Department Care Team (Late Contact Info) Description 02/20/2014 Orders Only Radiation Oncology at [address] [phone] Jesse Mcmahan MD [facility] [place] [address] Cancer of tongue Social History Tobacco Use Types [...] EDT Office Visit Radiation Oncology at [address] [phone] Jesse Mcmahan MD [facility] [place] [address] documented as of this encounter Visit Diagnoses Diagnosis Cancer of tongue Malignant neoplasm of tongue, unspecified site documented in this encounter Care Teams Direct Service Provider Relationship Specialty Start Date End Date Bj Alves MD [address] [place] [phone] PCP - General 06/25/10 04/02/23 documented as of this encounter
--- OUTSIDE RECORDS SUMMARY | 2024-08-01 15:28 | XMS_ITS | Encounter Summary ---
Author Organization Formerly [facility] [place] [address] Care Team Providers Care Bacteriologist Pharmaceutical Name Role Phone Ash Hernandez MD Primary Care Provider [phone] Reason for Visit * Reason Comments Radiation Follow-up Encounter Details Date Type Department Care Team (Late st Contact Info) Description 09/23/2013 1:30 PM EST Follow-Up Radiation Oncology at [address] [phone] Jesse Mcmahan MD [facility] [place] [address] Cancer of base of tongue (Primary Dx) [...] Sign Reading Time Taken Comments Blood Pressure 129/83 09/23/2013 1:28 PM EST Pulse 60 09/23/2013 1:28 PM EST Temperature 36.6 ??C (97.9 ??F) 09/23/2013 1:28 PM ES T Respiratory Rate 20 09/23/2013 1:28 PM EST Oxygen Saturation 97% 09/23/2013 1:28 PM EST Inhaled Oxygen Concentration - - Weight 90.5 kg (199 lb 8 oz) 09/23/2013 1:28 PM EST Height - - Body Mass Index 29.55 05/12/2013 2:49 PM EDT documented in this encounter Progress Notes * Jesse Mcmahan MD - 09/23/2013 1:46 PM EST Radiation Oncology Follow Up Note [...] 3.3 x 5.2 cm. ?? 11/27/11 [place] Despite premedication, severe claustrophobia allowed this can [...] ??? 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 DIFFICULT AIRWAY 300305 ??? Dysphagia, unspecified 787.20 Interval History: Sebastian Wyatt returns for routine follow up having completed radiotherapy approximately 1 year 6 months prior. Currently he notes the following symptoms: Symptom Description Ongoing Intervention Dysphagia Most foods tolerable, difficulty with chunkier foods, drier and pulverizer tender foods. Not seeing TOWEL SEWER at thistime. Odynophagia Moderate pain/discomfort associated with mid-neck, ~ 2/10, especially when swallowing. Using minimal pain medication as he does not feel that it is necessary. Stable. Not using Trismus Stable, doing exercises. PT exercises Weight Loss Stable weight Diet Modifications Eating most foods, limited by pain associated with spicy foods as well as dysgeusia and xerostomia Neck Symptoms Stable L shoulder pain. Extends from medial SCLV out to the humeral head exacerbated by pressure and certain movements. He has intermittent associated paresthesias of the left arm and hand, stable. He also notes continued stable weakness of that arm, modest, still able to use for activities. Dental Issues None Following with dentistry Otalgia/Referred Pain Right ear pain present but minimal Xerostomia Moderate xerostomia, dysgeusia moderate Other Pain Pain associated knees, ankles and shoulders due to psoriatic arthritis. MTX, prednisone He continues to have fatigue, progressive towards the end of the week, which eventually limits his activities. No Known Allergies Current Outpatient Prescriptions on File Prior to Visit Medication Sig Dispense Refill ??? ergocalciferol (VITAMIN D) 50,000 unit capsule Take 50,000 Units by mouth once a week. ??? cholecalciferol, Vitamin D3, 400 unit tablet Take 400 Units by mouth daily. ??? ergocalciferol (ERGOCALCIFEROL) 50,000 unit capsule Take 50,000 Units by mouth once a week. ??? METHOTREXATE SODIUM, PF, INJ Inject 0.4 [...] WITH BIOPSY performed by BECKY GANN at [facility] OR ??? Laryngoscopy, dirct, op scop, exc tumr 12/12/2011 LARYNGOSCOPY, DIRECT, EXCISION OF TUMOR, CORD STRIPPING, MICRO performed by BECKY GANN at [facility] OR ??? Scan doc: pet scan 01/16/2012 PET SCAN performed by LES REYNOLDS at [facility] ??? Scan doc: pet scan 07/06/2012 PET SCAN performed by Anesthesia-Iris Reynolds at [facility] Physical Examination: Filed Vitals: 09/23/13 1328 BP: 129/83 Pulse: 60 Temp: 36.6 ??C (97.9 ??F) TempSrc: Oral Resp: 20 Weight: 90.493 kg (199 lb 8 oz) SpO2: 97% Physical Exam Constitutional: He is [...] without suspicious masses or lesions. Musculoskeletal: Left friend of the court < right friend of the court. Flex/ex right elbow and shoulder 5/5 left [...] Sebastian Wyatt is now ~ 1 year 6 months out from definitive RT + cetuximab [...] medication at this time, tolerating. ?? Fibrosis/Edema: stable, most prominent on left neck. ?? Fatigue: Improved, but still significant. ?? Shoulder pain/arm parethesias/LUE weakness: unchanged. He has a prior injury of that shoulder that was associated with weakness and altered sensation. 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 We discussed MRI to evaluate but he would again like to hold off given his severe claustrophobia, and will continue to follow with ortho. ?? Dental: RTOG dental Grade 1 ?? Hypothyroid: managed by PCP at this time ?? Arthritis: psoriatic arthritis, managed by Rheumatology. Continuing on MTX and prednisone Plan: ?? 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
--- OUTSIDE RECORDS SUMMARY | 2024-08-01 15:28 | XMS_ITS | Encounter Summary ---
[place] [address] Care Team Providers Care Ladle Repairer Name Role Phone Bj Alves MD Primary Care Provider [phone] Encounter Details Date Type Department Care Team (Late st Contact Info) Description 03/26/2015 Telephone [place] [phone] Shannan Johnson APRN Social History Tobacco Use [...] Telephone Encounter - Shannan Johnson APRN - 03/26/2015 1:52 PM EDT Call to patient to report that his CT scan of the neck and chest were fine. He reports he is having a flare up of his arthritis and is achy all over He is resting and hydrating well. Will follow up as per head and neck grid and he will follow up with his kettle operator head documented in this encounter Plan of Treatment Upcoming Encounters Date Type Department Care Team (Late st Contact Info) Description 05/24/2025 11:00 AM EDT Office Visit Radiation Oncology at [address] [phone] Jesse Mcmahan MD [facility] [place] [address] documented as of this encounter Visit Diagnoses Not on filedocumented in this encounter Care Teams Ladle Repairer Relationship Specialty Start Date End Date Bj Alves MD [address] [place] [phone] PCP - General 06/25/10 04/02/23 documented as of this encounter
--- OUTSIDE RECORDS SUMMARY | 2024-08-01 15:28 | XMS_ITS | Encounter Summary ---
Author Organization Formerly [facility] [place] [address] Care Team Providers Care Magnetic Tape Composer Operator Name Role Phone Bj Alves MD Primary Care Provider [phone] Encounter Details Date Type Department Care Team (Late Contact Info) Description 02/20/2014 Orders [place] [phone] Jesse Mcmahan MD [facility] [place] [address] Cancer of base of tongue (Primary Dx) Social [...] EDT Office Visit Radiation Oncology at [address] [phone] Jesse Mcmahan MD [facility] [place] [address] documented as of this encounter Visit Diagnoses Diagnosis 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
--- OUTSIDE RECORDS SUMMARY | 2024-08-01 15:28 | XMS_ITS | Encounter Summary ---
[place] [address] Care Team Providers Care Branch Director Name Role Phone Bj Alves MD Primary Care Provider [phone] Reason for Visit * Reason Comments Aneurysm (Aortic) I have an aneurysm * Consultation (Routine) - Specialty Diagnoses / Procedures Referred By Contac t Referred To Contact Vascular Surgery Diagnoses Abdominal aortic aneurysm, 4.9 cm Jes Brown APRN [address] [place] [address] [facility] Vascular Surg [address] [place] [address] Referral ID Status Reason Start Date Expiration Date V isits Requested Visits Authorized Consult, Test & Treat 12/17/2016 12/17/2017 2 2 Encounter Details Date Type Department Care Team (Late st Contact Info) Description 01/09/2017 3:00 PM EDT Office Visit [place] [address] Iman Argueta PA [address] [facility] [facility] TO [facility] [place] [address] AAA (abdominal aortic aneurysm) without rupture Social [...] Sign Reading Time Taken Comments Blood Pressure 138/86 01/09/2017 3:17 PM EDT Pulse 70 01/09/2017 3:17 PM EDT Temperature - - Respiratory Rate - - Oxygen Saturation - - Inhaled Oxygen Concentration - - Weight 104.3 kg (230 lb) 01/09/2017 3:16 PM EDT Height 175.3 cm (5' 9) 01/09/2017 3:16 PM EDT Body Mass Index 33.97 01/09/2017 3:16 PM EDT documented in this encounter Patient Instructions * Patient Instructions* Iman Argueta PA - 01/09/2017 3:00 PM EDT Mr. Wyatt has an abdominal aneurysm which is gradually reaching a threshold to consider repair. Because of this he will eventually require a CTA of the abd/pelvis to assess his candidacy for endovascular repair. He and his did consider returning for the CTA however this would require contrast and radiation. They are concerned that he has already had multiple exposures to radiation because of his prior CTs and PET scans to evaluate his cancer. Instead, he would like to continue duplex follow up until the aneurysm broaches a size that will be considered for repair. He understands this and we will plan to repeat his aortic duplex in 6 months and reevaluate him in clinic at that time. Hewould like his duplex to be performed at [facility] because it is closer to his home and convenient for him to fast for/travel to. He will then come here to reevaluate in the office. I have recommended that he take a baby aspirin and a statin daily and he should continue to monitorhis blood pressure to ensure adequate control. His statin should be dosed/monitored by his PCP. He should also continue regular exercise and manage his weight. He understands the signs/symptoms of aneurysm rupture (sudden increase or severe back/abdominal/pelvic pain) and will call 911 if this occurs. If he begins to develop vague unprovoked pain otherwise then he should contact us. AAA screening for family members: Aneurysms do have a pattern of familial inheritance meaning that they can run in families. Please encourage your first degree relatives (siblings/children/parents) to be screened for aneurysmal disease. This could be completed with an aortic duplex (ultrasound) and should be done at age 55 and if normal it can be repeated again in 5 years. Please do not hesitate to call with questions/concerns. documented in this encounter Progress Notes * Iman Argueta PA - 01/09/2017 3:00 PM EDT This is a new patient to the practice who is being evaluated for AAA and was referred by Bj Alves MD. Mr. Wyatt is a 61 year old man who has a known history of AAA which was found several years ago on a PET scan done for evaluation of throat cancer. It has been sequentially followed since that timeand we were asked him to provide further recommendations for care. He denies back/pel/abdominal pain recently. His most recently duplex was performed at [facility]. He has a (+) family history of AAA. He states his blood pressure is typically better controlled buthe was anxious about today. He is not taking aspirin or a statin regularly and does not smoke. He quit several years ago when he was diagnosed with cancer. PMHx: Past Medical History: Diagnosis Date ??? Acid reflux ??? Arthritis ??? Injury of left knee 2014 fall at work ??? Psoriasis ??? Psoriatic arthritis ??? Thyroid dysfunction PSxHx: Past Surgical History: Procedure Laterality Date ??? CARPAL TUNNEL RELEASE rt ??? PET SCAN (SCAN) 01/16/2012 PET SCAN performed by RESOURCE, ANESTHESIA-IRIS at [facility] ??? PET SCAN (SCAN) 07/06/2012 PET SCAN performed by Anesthesia-Iris Resource at [facility] ??? PRO LARYNGOSCOPY, DIRCT, OP SCOP, EXC TUMR 12/12/2011 LARYNGOSCOPY, DIRECT, EXCISION OF TUMOR, CORD STRIPPING, MICRO performed by BECKY GANN at [facility] OR ??? PRO LARYNGOSCOPY, DIRCT, OP SCOPE, BIOPSY 12/12/2011 LARYNGOSCOPY, MICROSCOPE, WITH BIOPSY performed by BECKY GANN at [facility] OR Family Hx: Family History Problem Relation Age of Onset ??? Heart Failure Mother ??? Diabetes Mother ??? Thyroid Disease Mother hypothyroidism ??? Heart Failure Father ??? Diabetes Father ??? Abdominal Aortic Aneurysm Maternal Grandfather ??? Diabetes Other ??? Thyroid Disease Sister hypothyroidism ??? Abdominal Aortic Aneurysm Maternal Uncle Social Hx: Social History Substance Use Topics ??? Smoking status: Former Smoker Packs/day: 1.00 Years: 38.00 Quit date: 08/06/2011 ??? Smokeless tobacco: Never Used ??? Alcohol use 0.6 oz/week 1 Glasses of wine per week Comment: rarely one glass of wine occasionally Medications: Medications 01/09/17 1522 Medication Sig Taking? rosuvastatin (CRESTOR) 10 mg Tablet Take 10 mg by mouth daily. Yes tamsulosin (FLOMAX) 0.4 mg Capsule, Sust. Release 24 hr Take 0.4 mg by mouth daily. Yes acyclovir (ZOVIRAX) 400 mg Tablet Take 400 mg by mouth 3 times daily. Use for 5 days with acute flare Yes betamethasone dipropionate (DIPROLENE) 0.05 % Ointment Apply topically 2 times daily. Yes predniSONE (DELTASONE) 10 mg Tablet Take 10 mg by mouth daily. Yes Calcitriol 3 mcg/gram Ointment Apply 1 Film topically 2 times daily. Yes oxyCODONE (ROXICODONE) 5 mg Tablet Take 5 mg by mouth every 4 hours as needed for Pain. Yes FOLIC ACID ORAL Take by mouth daily. Yes METHOTREXATE SODIUM, PF, INJ Inject 0.4 mg as directed once a week. Self injects in thigh. For arthritits Yes celecoxib (CELEBREX) 100 mg capsule Take 100 mg by mouth daily as needed. Yes levothyroxine (SYNTHROID) 100 mcg tablet Take 175 mcg by mouth daily. Indications: Hypothyroidism Yes amlodipine-benazepril (LOTREL) 5-10 mg per capsule Take 2 capsules by mouth daily. Yes Allergies: No Known Allergies Review of Systems: Constitutional (weight change, fever) - Denies Neuro (dizziness, seizures, numbness, tingling) - Denies Eyes (vision) - Denies Ears, nose, throat (hearing) - Denies Cardiovascular (CP) - Denies Respiratory (SOB) - Denies GI (abd pain, nausea, emesis, blood in stool) - Denies (hematuria, dysuria, frequency) - Denies Muscoloskeletal (extremity pain, weakness) - Denies Skin (ulcers, rashes) - Denies All other ROS negative Physical Exam: Vitals: Vitals: 01/09/17 1517 BP: 138/86 Pulse: 70 Gen: No acute distress. HEENT: Normocephalic, atraumatic. PERR, EOMs intact bilaterally. No scleral icterus. Normal dentition Neck: Supple, no JVD. Heart: Regular rate and rhythm. (+) S1/S2. No snaps, clicks, rubs, or murmurs. No lifts/heaves Lungs: Regular respiratory rate with no increased work of breathing. Clear to auscultation bilaterally. Abd: Soft, obese, nontender, not distended. Audible bowel sounds. No bruits on exam. No hepato/splenomegaly. Aortic pulsation unable to be appreciated due to abdominal girth. Vascular Exam: R L Carotid 2/2 bruit (-) 2/2 bruit (-) Radial 2/2 2/2 Femoral 2/2 2/2 Popliteal 2/2 2/2 DP 2/2 2/2 PT 2/2 2/2 <3 sec cap refill bilateral feet Skin: Warm, pink, no tissue loss. Digits/Nails: No evidence of clubbing, cyanosis, ischemia, or tissue loss. Musculoskeletal: Gait - stable, no notable motor sensory deficits on gross examination. Psych: AAOx3, mood/affect congruent Labs/Studies: AAA duplex: [facility] Enlarging distal AAA, now measuring up to 4.9 cm and with moderate contained mural thrombus. 4.2 cm on prior study performed at same location on 06/12/15 Impression: AAA Recommendations: Mr. Wyatt has an abdominal aneurysm which is gradually reaching a threshold to consider repair. Because of this he will eventually require a CTA of the abd/pelvis to assess his candidacy for endovascular repair. He and his did consider returning for the CTA however this would require contrast and radiation. They are concerned that he has already had multiple exposures to radiation because of his prior CTs and PET scans to evaluate his cancer. Instead, he would like to continue duplex follow up until the aneurysm broaches a size that will be considered for repair. He understands this and we will plan to repeat his aortic duplex in 6 months and reevaluate him in clinicat that time. He would like his duplex to be performed at [facility] because it is closer to his home and convenient for him to fast for/travel to. He will then come here to reevaluate in theoffice. I have recommended that he take a baby aspirin and a statin daily and he should continue to monitorhis blood pressure to ensure adequate control. His statin should be dosed/monitored by his PCP. He should also continue regular exercise and manage his weight. He understands the signs/symptoms of aneurysm rupture (sudden increase or severe back/abdominal/pelvic pain) and will call 911 if this occurs. If he begins to develop vague unprovoked pain otherwise then he should contact us. AAA screening for family members: Aneurysms do have a pattern of familial inheritance meaning that they can run in families. Please encourage your first degree relatives (siblings/children/parents) to be screened for aneurysmal disease. This could be completed with an aortic duplex (ultrasound) and should be done at age 55 and if normal it can be repeated again in 5 years. Please do not hesitate to call with questions/concerns. documented in this encounter Plan of Treatment Upcoming Encounters Date Type Department Care Team (Late st Contact Info) Description 05/24/2025 11:00 AM EDT Office Visit Radiation Oncology at [address] [phone] Jesse Mcmahan MD [facility] [place] [address] documented as of this encounter Visit Diagnoses Diagnosis AAA (abdominal aortic aneurysm) without rupture Abdominal aneurysm without mention of rupture documented in this encounter Care Teams Branch Director Relationship Specialty Start Date End Date Bj Alves MD [address] [place] [phone] PCP - General 06/25/10 04/02/23 documented as of this encounter
--- OUTSIDE RECORDS SUMMARY | 2024-08-01 15:28 | XMS_ITS | Encounter Summary ---
Author Organization [facility] [place] [address] Care Team Providers Care Card Hanger Name Role Phone Bj Alves MD Primary Care Provider [phone] Encounter Details Date Type Department Care Team (Late Contact Info) Description 05/11/2013 Telephone Hematology Oncology at [address] [phone] Megha Bello RN Social History Tobacco Use Types Packs/Day [...] encounter Miscellaneous Notes * Telephone Encounter - Megha Bello RN - 05/11/2013 8:28 AM EDT Salvador called this morning stating he has gradually noticed swelling from the left side of his ear down to his left shoulder. Not painful, but does have a mild sore throat. Added he is a year out of treatment and wanted to know if this was normal. Has an appointment with Shannan Johnson tomorrow. Will inform Shannan of this phone conversation. Salvador verbally agreed with this plan. documented in this encounter Plan of Treatment Upcoming Encounters Date Type Department Care Team (Late Contact Info) Description 05/24/2025 11:00 AM EDT Office Visit Radiation Oncology at [address] [phone] Jesse Mcmahan MD [facility] [place] [address] documented as of this encounter Visit Diagnoses Not on filedocumented in this encounter Care Teams Card Hanger Relationship Specialty Start Date End Date Bj Alves MD [address] [place] [phone] PCP - General 06/25/10 04/02/23 documented as of this encounter
--- OUTSIDE RECORDS SUMMARY | 2024-08-01 15:29 | XMS_ITS | Encounter Summary ---
Author Organization [facility] [place] [address] Care Team Providers Care Medical Technologist Name Role Phone Bj Alves MD Primary Care Provider [phone] Reason for Referral * Consultation (Routine) - Closed by system - unspecified Specialty Diagnoses / Procedures Referred By Contac t Referred To Contact Diagnoses Cancer of base of tongue Sierra Santos APRN [facility] [place] [address] Referral ID Status Reason Start Date Expiration Date Visits Requested Visits Authorized [id number] Closed by system - unspecified Consult, Test & Treat 08/06/2012 02/02/2013 1 1 Encounter Details Date Type Department Care Team (Late st Contact Info) Description 08/06/2012 10:30 AM EST Follow-Up Hematology Oncology at [address] [phone] Sierra Santos APRN Cancer of base of tongue (Primary Dx) [...] Sign Reading Time Taken Comments Blood Pressure 143/92 08/06/2012 11:30 AM EST Pulse 71 08/06/2012 11:30 AM EST Temperature 36.5 ??C (97.7 ??F) 08/06/2012 11:[address] Respiratory Rate 18 08/06/2012 11:30 AM EST Oxygen Saturation 99% 08/06/2012 11:30 AM EST Inhaled Oxygen Concentration - - Weight 88 kg (194 lb) 08/06/2012 11:30 AM EST Height 175.4 cm (5' 9.06) 08/06/2012 11:[address] Body Mass Index 28.6 08/06/2012 11:30 AM EST documented in this encounter Progress Notes * Sierra Santos, WARDROBE MISTRESS - 08/10/2012 12:29 PM EST Head and Neck Cancer Medical Oncology Follow-Up Note Patient Active Problem List Diagnoses ??? Cancer of base of tongue Squamous [...] arm. Received 70 Gy completed 04/06/12 ??? Dysphagia, unspecified ??? DIFFICULT AIRWAY ??? Claustrophobia Needs sedation for scans ??? 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 Obesity ??? Hyperlipidemia ??? Hypertension ??? Glucose intolerance (impaired glucose tolerance) ??? Cigarette smoker ??? Hypothyroidism On replacement ??? GERD (gastroesophageal reflux disease) ??? Psoriasis ??? Sleep apnea On CPAP ??? Anxiety ??? Back pain, chronic ??? Thalassemia minor CC: followup visit for base of tongue cancer. Interval History: Now 4 full months from completion of chemoradiation. Mouth/throat problems: xerostomia, aleksey at night; some pain with swallowing.. Taste sensation returning, far from normal however. Occasional swallow-related cough, no major aspiration problems. Diet and nutrition problems: G-tube, 3-4 cans per day, via pump. Motivated to revert to PO, but post-prandial throat pain hinders this effort. Metastatic symptoms: None Functional status:Still fatigues very easily but is trying to do more.. Sleeps poorly, Interval medical problems: None new; he continues with rash on soles of feet.Skin is dry cracked painful to walk on- bleeds at times. It continues to be an issue. He continues to use his tube feeds for at least half of his oral intake due to pain when he swallows. He is taking some soft foods, yogurt shakes.His weight is up which is good. Otherwise ROS is negative Pain control: adequate, needs occasional oxycodone; off fentanyl. Hearing function intact. Outpatient Prescriptions Marked as Taking for the 08/06/12 encounter (Follow-Up) with Sierra Santos APRN Medication Sig Dispense Refill ??? OXYcodone (ROXICODONE) 5 mg immediate release tablet Take 1 tablet by mouth every 4 hours as needed for Pain. 100 tablet 0 ??? amlodipine-benazepril (LOTREL) 5-10 mg per capsule Take 2 capsules by mouth daily. ??? fluconazole (DIFLUCAN) 100 mg tablet Take by mouth. 200 mg day 1 and the 100 mg for 9 days. 11 tablet 0 ??? DISCONTD: OXYcodone (ROXICODONE) 5 mg immediate release tablet Take 1 tablet by mouth every 4 hours as needed for Pain. 100 tablet 0 ??? SALIVA STIMULANT AGENTS COMB.3 (BIOTENE MOISTURIZING MOUTH MM) by Mucous Membrane route as needed. ??? FLUoxetine (PROZAC) 20 mg capsule Take by mouth daily. ??? cholecalciferol, Vitamin D3, 400 unit tablet Take 400 Units by mouth daily. ??? metoprolol succinate (TOPROL-XL) 100 mg XL tablet Take 50 mg by mouth daily. ??? rosuvastatin (CRESTOR) 10 mg tablet Take 10 mg by mouth daily. ??? levothyroxine (SYNTHROID) 137 mcg tablet Take 137 mcg by mouth daily. Social History: Reviewed; no changes from last visit. Family History: Reviewed; no new developments. Review of Systems: Review of systems is negative for other WEEKDAY BABYSITTER, bone, pulmonary, cardiac, GI, , extremity, neurologic, endocrine, skin, constitutional, emotional, or functional problems. Vital signs reviewed. Exam: General appearance: NAD, in good spirits Nutritional status: Weight up to 194 lb! Skin: Excellent in-field recovery; no residual cetux rash over h/n or torso Palms < soles: punctate palpable red areas with scaling-dry cracking skin- on larger ones, up to2 cm.some bleeding. Has some psoriasis on his lower extremities painful Oral: Scant palate and posterior phar wall edema Dentition: healthy Neck: No fibrosis; grade 1 diffuse lymphedema Right: no adenopathy Left: no adenopathy Nasal: clear Ear: clear Peripheral nodes: nil Chest: clear Heart: RRR, normal tones Abdomen: benign, no HSM; G-tube healthy and clean Extremties: no clubbing or edema; tender at posterior shoulder joint but no palpable masses or skinfindings there. Neurologic: L-mullen neck rotation exacerbates L deltoid region parasthesias Cranial nerves: Normal Reflexes: 1 + Laryngoscopy: Not done today. No results found for this or any previous visit (from the past 72 hour(s)). Radiographs: I personally reviewed today's PET/CT: I agree with the findings as noted in report: Comparison PET-CT 01/16/2012, 11/27/2011 Head/Neck Normal metabolic activity throughout the brain. Interval metabolic and resolution of necrotic left zone 2 lymph node. Interval metabolic and comment resolution of left zone 5 new hypermetabolic lymph node. Interval metabolic resolution by activity seen in the left base of tongue. Persistent increased metabolic activity in the thyroid gland compatible with thyroiditis. Chest Normal metabolic activity throughout the chest. Right-sided central venous catheter with tip terminating at the cavoatrial junction. Abdomen/Pelvis Normal metabolic activity of the abdomen. Gastrostomy tube is unchanged in position with tip directed towards the fundus. Stable infrarenal abdominal aortic aneurysm measuring 3.7 cm without chance since 11/27/11. Small hypodensity in the right kidney is too small to characterize but unchanged from the prior study. Skeleton/Extremities Decreased metabolic activity in the region of the cervical spine compatible with prior radiation. Normal metabolic activity throughout the remainder of the axial and appendicular skeleton. Impression 1. No evidence of residual disease. 2. No regional or distant metastases. 3. Incidental thyroiditis, unchanged. Impression: 1. BOT cancer, clinically MARCO. 2. Persistent post-treatment mucosal sensitivity without overt mucositis or active infection. This is not unexpected. 3. G-tube dependence. Should be ready to transition more fully to PO intake. Pain is limiting. 4. Fatigue + poor sleep: multifactorial. Xerostomia contributing. Sleep apnea may be a big factor since mask mis-fit has halted use of CPAP machine.He has a new chin strap now 5. Skin rash: unusual.-dry cracking skin- Cetuximab is more likely; irritation of the thick skin ofpalms, soles, paronychia is common with prolonged administration. Timing is not terribly consistent, Plan: 1. Taper feedings by 1 can/day on a weekly titration schedule. Celebrex for throat pain; oxycodone if severe. He continues to take atleast half of his intake through the tube due to pain when he swallows. Once he is G-tube independent X 2 weeks and maintaining weight, G-tube can be removed. The diet ician will continue to follow weekly and help with oral intake. 2. Rash has worsened on on his feet making it very difficult for him to walk much. I will make a referral to dermatology in [facility] for him. 3. May be better to wait until the end of August for returning to work. 4. He will return for followup as scheduled with Dr Mcmahan. Sierra Santos MS WARDROBE MISTRESS [facility] Hematology/ Oncology [address] [place] [address] documented in this encounter Plan of Treatment Upcoming Encounters Date Type Department Care Team (Late st Contact Info) Description 05/24/2025 11:00 AM EDT Office Visit Radiation Oncology at [address] [phone] Jesse Mcmahan MD [facility] [address] Scheduled Referrals Name Type Priority Associated Diagnoses Order Schedule Referral to Dermatology Outpatient Referral Routine Cancer of base of tongue Ordered: 08/06/2012 documented as of this encounter Visit Diagnoses Diagnosis Cancer of base of tongue- Primary Malignant neoplasm of base of tongue documented in this encounter Care Teams Medical Technologist Relationship Specialty Start Date End Date Bj Alves MD [address] [place] [phone] PCP - General 06/25/10 04/02/23 documented as of this encounter
--- OUTSIDE RECORDS SUMMARY | 2024-08-01 15:29 | XMS_ITS | Encounter Summary ---
Author Organization [facility] [place] [address] Care Team Providers Care Senior Underwriter Name Role Phone Bj Alves MD Primary Care Provider Encounter Details Date Type Department Care Team (Late Contact Info) Description 12/23/2012 Orders Only [place]ematology [place] [phone] Leslie Guzman APRN Cancer of base of tongue (Primary [...] EDT Office Visit Radiation Oncology at [address] [phone] Jesse Mcmahan MD [facility] [place] [address] documented as of this encounter Visit Diagnoses Diagnosis Cancer of base of tongue- Primary Malignant neoplasm of base of tongue documented in this encounter Care Teams Senior Underwriter Relationship Specialty Start Date End Date Bj Alves MD [address] [place] [phone] PCP - General 06/25/10 04/02/23 documented as of this encounter
--- OUTSIDE RECORDS SUMMARY | 2024-08-01 15:29 | XMS_ITS | Encounter Summary ---
[place] [address] Care Team Providers Care Juvenile Detention Officer Name Role Phone Bj Alves MD Primary Care Provider [phone] Encounter Details Date Type Department Care Team (Late st Contact Info) Description 07/06/2012 1:55 PM EST - 07/06/2012 3:08 [place] [phone] RESOURCE, ANESTHESIA-VISALIA None PET SCAN Social History Tobacco Use Types Packs/Day Years [...] Sign Reading Time Taken Comments Blood Pressure 117/84 07/06/2012 4:00 PM EST Pulse 73 07/06/2012 4:00 PM EST Temperature 36.8 ??C (98.2 ??F) 07/06/2012 3:44 PM ES T Respiratory Rate 16 07/06/2012 4:00 PM EST Oxygen Saturation 98% 07/06/2012 4:00 PM EST Inhaled Oxygen Concentration - - Weight 84.5 kg (186 lb 4.8 oz) 07/06/2012 12:04 PM EST Height 175.3 cm (5' 9) 07/06/2012 12:04 PM EST Body Mass Index 27.51 07/06/2012 12:04 PM EST documented in this encounter Discharge Instructions * Discharge Instructions* Corinna Vega RN - 07/06/2012 3:56 PM EST 1. You may have received medication before and/or during your procedure, which affects judgment andreaction time. 2. Do not drive, operate machinery, drink alchololic beverages, or make important decisions for 24 hours. 3. Be careful on stairs, as you may be unsteady on your feet. 4. You may eat a regular diet as tolerated. 5. Do not smoke if you are alone. 6. IV site- slight redness or tenderness is normal, you can use warm compresses. If tenderness and redness increases or foul drainage occours, please contact your M.D. documented in this encounter Medications at Time of Discharge Medication Sig Dispensed Refills Start Date End Date fluconazole (DIFLUCAN) 100 mg tabletIndications:Head and neck cancer,Thrush Take by mouth. 200 mg day 1 and the 100 mg for 9 days. 11 tablet 0 06/08/2012 09/10/2012 FLUoxetine (PROZAC) 10 mg capsule Take 1 capsule by mouth daily. Take with the 20mg tab so 30mg total. 30 capsule 12 06/04/2012 09/10/2012 OXYcodone (ROXICODONE) 5 mg immediate release tablet Take 1 tablet by mouth every 4 hours as needed for Pain. 100 tablet 0 04/16/2012 08/06/2012 LORazepam (ATIVAN) 1 mg tablet Take 2 tablets by mouth. Take prior to bed to assist with sleep. 30 tablet 0 04/16/2012 09/10/2012 ondansetron (ZOFRAN) 8 mg tablet Take 1 tablet by mouth every 8 hours as needed for Nausea. 30 tablet 4 04/09/2012 09/10/2012 SALIVA STIMULANT AGENTS COMB.3 (BIOTENE MOISTURIZING MOUTH MM) by Mucous Membrane route as needed. 09/24/2012 acetaminophen (TYLENOL) 160 mg/5 mL liquid Take 15 mg/kg/dose by mouth every 4 hours as needed. 02/24/2013 FLUoxetine (PROZAC) 20 mg capsule Take by mouth daily. 09/10/2012 B Complex-Vitamin C-Folic Acid (NEPHROCAP) 1 mg capsule Take 1 capsule by mouth daily. 08/22/2016 cholecalciferol, Vitamin D3, 400 unit tablet Take 400 Units by mouth daily. 09/01/2013 ascorbic acid (VITAMIN C) 500 mg tablet Take 500 mg by mouth daily. 01/09/2017 metoprolol succinate (TOPROL-XL) 100 mg XL tablet Take 50 mg by mouth daily. 10/18/2015 rosuvastatin (CRESTOR) 10 mg tablet Take 5 mg by mouth daily. 10/18/2015 levothyroxine (SYNTHROID) 137 mcg tablet Take 175 mcg by mouth daily. 12/16/2012 documented as of this encounter Progress Notes * Corinna Vega RN - 07/06/2012 4:08 PM EST I/Brittany Patiño RN flushed patient's port with 20 mls of normal saline and 500 units of heparin. Bandaid placed. Pt. Tolerated well./ANEESH RN documented in this encounter Miscellaneous Notes * Miscellaneous - Provider, Scanning - 07/06/2012 8:09 PM EST * Miscellaneous - Provider, Scanning - 07/06/2012 12:53 PM EST documented in this encounter Plan of Treatment Upcoming Encounters Date Type Department Care Team (Late st Contact Info) Description 05/24/2025 11:00 AM EDT Office Visit Radiation Oncology at [address] [phone] Jesse Mcmahan MD [facility] [place] [address] documented as of this encounter Procedures Procedure Name Priority Date/Time Associated Diagnosis Comments PET SCAN 07/06/2012 9:55 PM EST base of tongue cancer NM PET CT SKULL BASE TO MID-THIGH ([facility]) Routine 07/06/2012 3:37 PM EST Cancer of base of tongue Hypothyroidism POCT GLUCOSE Routine 07/06/2012 1:42 PM EST documented in this encounter Results * PET-CT skull base to mid thigh (07/06/2012 3:37 PM EST) Anatomical Region Laterality Modality Other 07/06/2012 3:37 PM EST Narrative 07/07/2012 8:23 AM EST Examination PET/CT SKULL BASE TO MID-THIGH Technique Procedure: Following IV injection of 09-iyrlaf-7-deoxyglucose (FDG) and a standard uptake period, a non-contrast CT scan followed by a PET scan were acquired from the top of head to the mid thighs. The non-contrast CT was used for anatomic localization and photon attenuation correction of the PET scan. Blood Glucose Level (mg/dL):103 FDG Dose:12.6mCi (0.15 mCi/kg to maximum of 18 mCi). Pre-medication: ?? Clinical History history of head/neck Ca, s/p chemoRT. Restage cancer base of tongue Comparison PET-CT 01/16/2012, 11/27/2011 Head/Neck Normal metabolic activity throughout the brain. Interval metabolic resolution of necrotic left zone 2 lymph node. Interval metabolic resolution of left zone 5 new hypermetabolic lymph node. Interval metabolic resolution by activity seen in the left base of tongue. Persistent increased metabolic activity in the thyroid gland compatible with thyroiditis. ?? Chest Normal metabolic activity throughout the chest. [...] characterize but unchanged from the prior study. ?? Skeleton/Extremities Decreased metabolic activity in the region of the cervical spine compatible with prior radiation. Normal metabolic activity throughout the remainder of the axial and appendicular skeleton. ?? Impression 1. No evidence of residual disease. 2. No regional or distant metastases. ?? 3. Incidental thyroiditis, unchanged. ?? Thank you for referring this patient to the [facility] Film and interpretation reviewed by the attending Procedure Note Abhi Gao MD - 07/07/2012 Examination PET/CT SKULL BASE TO MID-THIGH Technique Procedure: Following IV injection of 21-hytxot-7-deoxyglucose (FDG) and a standard uptake period, a non-contrast CT scan followed by a PET scan were acquired from the top of head to the mid thighs. The non-contrast CT wasused for anatomic localization and photon attenuation correction of the PETscan. Blood Glucose Level (mg/dL):103 FDG Dose:12.6mCi (0.15 mCi/kg to maximum of 18 mCi). Pre-medication: Clinical History history of head/neck Ca, s/p chemoRT. Restage cancer base of tongue Comparison PET-CT 01/16/2012, 11/27/2011 Head/Neck Normal metabolic activity throughout the brain. Interval metabolicresolution of necrotic left zone 2 lymph node. Interval metabolic resolution of leftzone 5 new hypermetabolic lymph node. Interval metabolic resolution by activityseen in the left base of tongue. Persistent [...] kidney is too small to characterize but unchangedfrom the prior study. Skeleton/Extremities Decreased metabolic activity in the region of the cervical spinecompatible with prior radiation. Normal metabolic activity throughout the remainderof the axial and appendicular skeleton. Impression 1. No evidence of residual disease. 2. No regional or distant metastases. 3. Incidental thyroiditis, unchanged. Thank you for referring this patient to the [facility] PET Center Film and interpretation reviewed by the attending Butch Catalan MD IM PET ORDERABLES * POCT Glucose (07/06/2012 1:42 PM EST) [facility] Glucose, POC 103 60 - 199 mg/dL [facility] Comment: Supplemental ranges: <110 mg/dL before meals <200 mg/dL all other times of the day Blood specimen (specimen) 07/06/2012 1:42 PM EST 07/06/2012 1:42 PM EST Mamadou Connolly MD POINT OF CARE TEST O RDERABLES Performing Organization Address City/State/[facility] Co mt Phone Number [facility] documented in this encounter Visit Diagnoses Not on filedocumented in this encounter Active and Recently Administered Medications Care Teams Juvenile Detention Officer Relationship Specialty Start Date End Date Bj Alves MD [address] [place] [phone] PCP - General 06/25/10 04/02/23 documented as of this encounter
--- OUTSIDE RECORDS SUMMARY | 2024-08-01 15:29 | XMS_ITS | Encounter Summary ---
Author Organization [facility] Address [facility] [address] Care Team Providers Care Linux Unix Administrator Name Role Phone Bj Alves MD Primary Care Provider [phone] Reason for Referral * Physical Therapy (Routine) - Closed by system - unspecified Specialty Diagnoses / Procedures Referred By Contac t Referred To Contact Physical Therapy Diagnoses Cancer of base of tongue Leslie Guzman APRN [facility] DR HEMATOLOGY/[place] [address] Referral ID Status Reason Start Date Expiration Date Visits Requested Visits Authorized [id number] Closed by system - unspecified Evaluate and Treat 09/10/2012 03/09/2013 1 1 Encounter Details Date Type Department Care Team (Late st Contact Info) Description 09/10/2012 10:30 AM EST Follow-Up Hematology Oncology at [address] [phone] Leslie Guzman APRN Cancer of base of [...] Sign Reading Time Taken Comments Blood Pressure 151/103 09/10/2012 9:33 AM EST 157 105 at the end of visit Pulse 70 09/10/2012 9:33 AM EST Temperature 36.3 ??C (97.3 ??F) 09/10/2012 9 :33 AM EST Respiratory Rate 18 09/10/2012 9:33 AM EST Oxygen Saturation 100% 09/10/2012 9:3 3 AM EST Inhaled Oxygen Concentration - - Weight 89.8 kg (198 lb) 09/10/2012 9:33 AM EST Height 175.3 cm (5' 9.02) 09/10/2012 9 :33 AM EST Body Mass Index 29.23 09/10/2012 9:33 AM EST documented in this encounter Progress Notes * Thomas Leslie A, CARDIAC SURGEON - 09/10/2012 10:18 AM EST Subjective: Patient ID: Sebastian Wyatt is a 57 y.o. male. HPI Comments: Salvador is here today to have his G-tube removed. He is not been using the tube for thepast 2 weeks. He has gained kilo. 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 1 PPD x 38 yrs. Quit 08/2011. Developed odynophagia early 11/2011, abx did not improve, . Referred to ENT. He does note some coughing in the morning ove the past year. Stagin12/09/11 CT H&N with contrast ([facility] Mixed attenuation mass with lare low density areas suggesting necrotic change present deep to anterior aspect L SCM. Mass smoothly marginated, max 3.3 x 5.2 cm. 11/27/11 PET-CT ([facility]): Despite premedication, severe claustrophobia allowed this can [...] cetuximab arm. 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 Obesity Hyperlipidemia Hypertension Glucose intolerance (impaired glucose tolerance) Cigarette smoker Hypothyroidism On replacement GERD (gastroesophageal reflux disease) Psoriasis Sleep apnea On CPAP Anxiety Back pain, chronic Thalassemia minor Dysphagia: mild; this is likely due to lymphedema and should resolve with therapy Odynophagia: none Weight loss/ nutrition: stable Xerostomia: moderate; plan to trial Salagen today Diet modifications : as directed by dietitian Neck symptoms: lymphedema Pain: occasionally at night for which he takes one Percocet Metastatic symptoms: none Functional problems: none Coping/emotional issues: baseline anxiety Dental care: Medical issues: Neuropathy: none Hearing problems: no new issues Geographic issues: lives close to [place] G-tube removed today [facility] plan to remove a soon as possible Speech-language pathology ongoing therapy in progress Filed Vitals: 09/10/12 0933 BP: 151/103 Pulse: 70 Temp: 36.3 ??C (97.3 ??F) Resp: 18 Current outpatient prescriptions:OXYcodone (ROXICODONE) 5 mg immediate release tablet, Take 1 tablet by mouth every 4 hours as needed for Pain., Disp: 100 tablet, Rfl: 0; amlodipine-benazepril (LOTREL) 5-10 mg per capsule, Take 2 capsules by mouth daily. , Disp: , Rfl: ; SALIVA STIMULANT AGENTS COMB.3 (BIOTENE MOISTURIZING MOUTH MM), by Mucous Membrane route as needed., Disp: , Rfl: acetaminophen (TYLENOL) 160 mg/5 mL liquid, Take 15 mg/kg/dose by mouth every 4 hours as needed., Disp: , Rfl: ; B Complex-Vitamin C-Folic Acid (NEPHROCAP) 1 mg capsule, Take 1 capsule by mouth daily., Disp: , Rfl: ; cholecalciferol, Vitamin D3, 400 unit tablet, Take 400 Units by mouth daily., Disp: , Rfl: ; metoprolol succinate (TOPROL-XL) 100 mg XL tablet, Take 50 mg by mouth daily., Disp: , Rfl: rosuvastatin (CRESTOR) 10 mg tablet, Take 10 mg by mouth daily., Disp: , Rfl: ; levothyroxine (SYNTHROID) 137 mcg tablet, Take 137 mcg by mouth daily., Disp: , Rfl: ; pilocarpine (SALAGEN) 5 mg tablet, Take 1 tablet by mouth 3 times daily for 30 doses., Disp: 30 tablet, Rfl: 0; DISCONTD: FLUoxetine(PROZAC) 10 mg capsule, Take 1 capsule by mouth daily. Take with the 20mg tab so 30mg total., Disp:30 capsule, Rfl: 12 DISCONTD: LORazepam (ATIVAN) 1 mg tablet, Take 2 tablets by mouth. Take prior to bed to assist withsleep., Disp: 30 tablet, Rfl: 0; DISCONTD: FLUoxetine (PROZAC) 20 mg capsule, Take by mouth daily.,Disp: , Rfl: ; ascorbic acid (VITAMIN C) 500 mg tablet, Take 500 mg by mouth daily., Disp: , Rfl: Review of Systems HENT: Positive for neck stiffness (Neck is somewhat stiff with edema). Musculoskeletal: Positive for myalgias (Chronic left-sided shoulder pain). Psychiatric/Behavioral: Positive for sleep disturbance (Chronic insomnia. He is not able to use hisCPAP at this time due to the dry effect to the mouth.). The patient is nervous/anxious (Not new forhim). Objective: Physical Exam Constitutional: He is oriented to person, place, and time. He appears well- developed and well-nourished. HENT: Mouth/Throat: No oropharyngeal exudate. He is able to open his mouth approximately 1.5 cm. Moderate trismus. Eyes: Conjunctivae and EOM are normal. Pupils are equal, round, and reactive to light. Neck: Normal range of motion. Neck supple. Moderate lymphedema from treatment Cardiovascular: Normal rate, regular rhythm and normal heart sounds. Elevated blood pressure today. He states he forgot to take his blood pressure medication. Pulmonary/Chest: Effort normal and breath sounds normal. Abdominal: Soft. Bowel sounds are normal. G-tube is without evidence of infection. I removed it today. Musculoskeletal: Normal range of motion. He exhibits no edema. Lymphadenopathy: He has no cervical adenopathy. Neurological: He is alert and oriented to person, place, and time. He has normal reflexes. Skin: Skin is warm and dry. Assessment and Plan: 1. Squamous cell cancer left base of tongue; No evidence of disease at this time. We will follow him on a monthly basis until one year and then every other month thereafter according to the grid schedule per [facility] protocol. I will see him back here in one month's time. He should see Dr. Mcmahan the next time he is here in [facility] in order to be scoped. 2. he is being followed by speech in [place], and they will work as well on his lymphedema. Physical therapy referral completed today. 3. xerostomia: Trial of Salagen, particularly at night for dry mouth so that he can use his CPAP machine and decrease his insomnia. 4. encourage him to take his blood pressure medication as directed to avoid potential stroke or other ill effects 5. Trismus: Exercises reviewed to assist in helping him regain his former control; he will continueworking on this with speech as well. 6. he can have his Mediport removed at his leisure. He believes that a surgeon in [place] may do this for him. I will put in a port removal order today. documented in this encounter Plan of Treatment Upcoming Encounters Date Type Department Care Team (Late st Contact Info) Description 05/24/2025 11:00 AM EDT Office Visit Radiation Oncology at [address] [phone] Jesse Mcmahan MD [facility] [place] [address] Scheduled Referrals Name Type Priority Associated Diagnoses Orde r Schedule Referral to Physical Therapy Outpatient Referral Routine Cancer of base of tongue Ordered: 09/10/2012 documented as of this encounter Visit Diagnoses Diagnosis Cancer of base of tongue- Primary Malignant neoplasm of base of tongue documented in this encounter Care Teams Linux Unix Administrator Relationship Specialty Start Date End Date Bj Alves MD [address] [place] [phone] PCP - General 06/25/10 04/02/23 documented as of this encounter
--- OUTSIDE RECORDS SUMMARY | 2024-08-01 15:29 | XMS_ITS | Encounter Summary ---
Author Organization [facility] [place] [address] Care Team Providers Care B2B Outside Sales Representative Name Role Phone Bj Alves MD Primary Care Provider [phone] Encounter Details Date Type Department Care Team (Late st Contact Info) Description 08/17/2012 Telephone Hematology Oncology at [address] [phone] Sabine Nash, MANJU [facility] [place] [address] Social History Tobacco Use Types Packs/Day Years [...] encounter Miscellaneous Notes * Telephone Encounter - Sabine Nash RD - 08/17/2012 11:38 AM EST Tc to pt for nutrition follow up. Throat is still very sore. Scheduled to see Dr. Mcmahan on 08/26. Taking 10 mg oxycodone at night, on most nights, but not every night. [facility] ALUMINUM WELDER would like him to get scoped. He is scheduled to see ENT at [facility] on 08/20. ALUMINUM WELDER has noted improvements. Intake: soft crust pizza, toast, spaghetti, and meatballs. Avoids leafy greens. B: scrambled eggs with cheese L: pumpkin soup with gouda and newton D: Pasta with sausage and 2 glasses of milk shake ( german yogurt, IC, berries/banana) TF: nocturnally, 3 cans via pump. Weight: 191 on home scale. He claims this is stable. However, he has lost 3 lbs in one week according to previous note. Energy: feels good, but still fatigued. Feeding horses, daily house chores. Running errands. Feet are still painful. A/P: Continue with 3 cans nocturnally via pump. P.O. As tolerated. Will follow up in one week. documented in this encounter Plan of Treatment Upcoming Encounters Date Type Department Care Team (Late st Contact Info) Description 05/24/2025 11:00 AM EDT Office Visit Radiation Oncology at [address] [phone] Jesse Mcmahan MD [facility] [place] [address] documented as of this encounter Visit Diagnoses Not on filedocumented in this encounter Care Teams B2B Outside Sales Representative Relationship Specialty Start Date End Date Bj Alves MD [address] [place] [phone] PCP - General 06/25/10 04/02/23 documented as of this encounter
--- OUTSIDE RECORDS SUMMARY | 2024-08-01 15:29 | XMS_ITS | Encounter Summary ---
Author Organization [facility] [place] [address] Care Team Providers Care Newspaper Publisher Name Role Phone Bj Alves MD Primary Care Provider [phone] Reason for Visit * Reason Comments Radiation Follow-up Encounter Details Date Type Department Care Team (Late st Contact Info) Description 09/24/2012 3:30 PM EST Follow-Up Radiation Oncology at [address] [phone] Jesse Mcmahan MD [facility] [place] [address] Cancer of base of tongue (Primary Dx) [...] Sign Reading Time Taken Comments Blood Pressure 133/88 09/24/2012 3:00 PM EST Pulse 82 09/24/2012 3:00 PM EST Temperature 36.4 ??C (97.5 ??F) 09/24/2012 3:00 PM ES T Respiratory Rate 16 09/24/2012 3:00 PM EST Oxygen Saturation 98% 09/24/2012 3:00 PM EST Inhaled Oxygen Concentration - - Weight 89.8 kg (198 lb) 09/24/2012 3:00 PM EST Height - - Body Mass Index 29.23 09/10/2012 9:33 AM EST documented in this encounter Progress Notes * Jesse Mcmahan MD - 09/24/2012 3:43 PM EST Radiation Oncology Follow Up Note [...] 3.3 x 5.2 cm. ?? 11/27/11 PET-CT ([facility]): Despite premedication, severe claustrophobia allowed [...] to cetuximab arm. Received 70 Gy completed 9/4/12 141.0 ??? Obesity 278.00 ??? Hyperlipidemia 272.4 ??? Hypertension 401.9 ??? Glucose intolerance (impaired glucose tolerance) 790.22 ??? Cigarette smoker 305.1 ??? Hypothyroidism 244.9 ??? GERD (gastroesophageal reflux disease) 530.81 ??? Psoriasis 696.1 ??? Sleep apnea 780.57 ??? Anxiety 300.00 ??? Back pain, chronic 724.5 ??? Thalassemia minor 282.49 ??? Claustrophobia 300.29 ??? 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 DIFFICULT AIRWAY [id number] ??? Dysphagia, unspecified 787.20 Interval History: Sebastian Wyatt returns for routine follow up having completed radiotherapy approximately 5 months prior. Currently he notes the following symptoms: Symptom Description Ongoing Intervention Dysphagia Tolerating most foods, limited primarily by pain. Occasionally choking or coughing. Seeing [employer] SUPERINTENDENT three times weekly. [employer]ENDENT Odynophagia Pain associated with middle of throat, typically at low level, but severe pain with swallowing. Oxycodone prn Trismus Difficulty with opening mouth, somewhat limited. PT Weight Loss 185 => 198 lbs Diet Modifications Eating most foods, limited by pain. Neck Symptoms L shoulder pain, associated with turning head and driving, posterior aspect. Described as burning/sharp pain. More intense over past month. Also neuropathy associated with right ear, new over past year. Dental Issues Some tenderness when flossing, using dental trays Otalgia/Referred Pain Denies Other Pain Denies He continues to have difficulty with fatigue, insomnia. Attributes to dry mouth. No Known Allergies Current Outpatient Prescriptions on File Prior to Visit Medication Sig Dispense Refill ??? OXYcodone (ROXICODONE) 5 mg immediate release tablet Take 1 tablet by mouth every 4 hours as needed for Pain. 100 tablet 0 ??? amlodipine-benazepril (LOTREL) 5-10 mg per capsule Take 2 capsules by mouth daily. ??? SALIVA STIMULANT AGENTS COMB.3 (BIOTENE MOISTURIZING MOUTH MM) by Mucous Membrane route as needed. ??? acetaminophen (TYLENOL) 160 mg/5 mL liquid [...] tablet Take 137 mcg by mouth daily. Past Medical History Diagnosis [...] scan 01/16/2012 PET SCAN performed by RODOLFO ANESTHESIASHON at [facility] ??? Scan doc: pet scan 07/06/2012 PET SCAN performed by Anesthesia-Iris Borden at [facility] Physical Examination: Filed Vitals: 09/24/12 1500 BP: 133/88 Pulse: 82 Temp: 36.4 ??C (97.5 ??F) Resp: 16 Weight: 89.812 kg (198 lb) SpO2: 98% Physical Exam Constitutional: He is oriented to person, place, and time. He appears well- developed and well-nourished. HENT: Visual inspection of OC and OP revealed no evidence of suspicious masses or lesions. Mild edema posterior oropharynx. Dentition in good repair. Moisture moderate. No thrush. Eyes: EOM are normal. Pupils are equal, round, and reactive to light. Neck: No tracheal deviation present. Palpation reveals no adenopathy in cervical, SCLV, ICLV chance basins. Small area of hypopigmentation L neck. Moderate lymphedema in submental area. Neurological: He is alert and oriented to person, place, and time. No cranial nerve deficit. Procedure: Flexible laryngoscopy was performed. The right naris was anesthetized with aerosolized lidocaine, and the laryngoscope was passed without difficulty. The nasopharynx examination revealed no suspicious masses or lesions. The oropharynx, larynx, and piriform sinuses were visualized and were without masses or lesions. No gary mucositis. There were small, punctate plaques in the oropharynx c/w thrush. The vocal cords apposed without difficulty. There was was edema of the supraglottic larynx. Interval Imaging: No interval imaging Assessment: Sebastian Wyatt is now ~ 5 months out from definitive RT + cetuximab on RTOG 1016: ?? Squamous cell carcinoma of the BOT ?? Clinically: clinically he has MARCO. ?? Radiographically: no interval imaging ?? Radiation toxicity: ?? Xerostomia: Moderate, using water/biotene to assist ?? Dysphagia: denies significant dysphagia. Tolerating most foods, primary limitation is pain. ?? Pain: associated with swallowing, using pain medication to some effect. Increased recently, may be related to thrush. ?? Fibrosis/Edema: minimal. He does have some L neck pain of unclear etiology. Unlikely to be biological sequela of RT, but possibly represents mechanical issue secondary to mask or osteoarthritis. Ongoing PT. ?? Fatigue: Improved, but still significant. ?? Thyroiditis: TSH to be re-evaluated at next visit. ?? Arthritis, possible psoriatic arthritis: he is to contact rheumatology and schedule a follow up appointment at [facility]. ?? Thrush: re-initiate fluconazole x 2 weeks, then re-evaluate. Plan: ?? FU: follow up with radiation oncology per NCC algorithm documented in this encounter Plan of Treatment Upcoming Encounters Date Type Department Care Team (Late st Contact Info) Description 05/24/2025 11:00 AM EDT Office Visit Radiation Oncology at [address] [phone] Jesse Mcmahan MD [facility] [place] [address] documented as of this encounter Visit Diagnoses Diagnosis Cancer of base of tongue- Primary Malignant neoplasm of base of tongue documented in this encounter Care Teams Newspaper Publisher Relationship Specialty Start Date End Date Bj Alves MD [address] [place] [phone] PCP - General 06/25/10 04/02/23 documented as of this encounter
--- OUTSIDE RECORDS SUMMARY | 2024-08-01 15:29 | XMS_ITS | Encounter Summary ---
Author Organization [facility] [place] [address] Care Team Providers Care Plate Gauger Name Role Phone Bj Alves MD Primary Care Provider Reason for Visit * Reason Comments Follow-up Encounter Details Date Type Department Care Team (Late st Contact Info) Description 05/06/2012 3:00 PM EDT Follow-[place] [address] Rio Gann MD [facility] [place] [address] Cancer of base of tongue (Primary Dx) Discharge Disposition: Home Social History Tobacco Use Types Packs/Day Years Used Date Smoking Tobacco: Former Cigarettes 1 38 0 08/06/1973 - 08/06/2011 Alcohol Use Standard Drinks/Week Comments Yes 1 (1 standard drink = 0.6 oz pure alcohol) rarely one glass of wine occasionally Sex and Gender Information Value Date Recorded Sex Assigned at Not on file Gender Identity Not on file Sexual Orientation Not on file documented as of this encounter Last Filed Vital Signs Vital Sign Reading Time Taken Comments Blood Pressure 124/71 05/06/2012 3:21 PM EDT Pulse 72 05/06/2012 3:21 PM EDT Temperature - - Respiratory Rate - - Oxygen Saturation - - Inhaled Oxygen Concentration - - Weight 92.2 kg (203 lb 4.8 oz) 05/06/2012 3:21 P M EDT Height 175.3 cm (5' 9) 05/06/2012 3:21 PM EDT Body Mass Index 30.02 05/06/2012 3:21 PM EDT documented in this encounter Progress Notes * Rio Gann MD - 05/06/2012 4:09 PM EDT [facility] Follow up note Sebastian Wyatt is a 57 y.o. male seen in follow-up for head and neck review. Primary: Left base of tongue Stage: [id number] Treatments: Enrolled on RTOG 1016, randomized to cetuximab arm. Received 70 Gy completed 04/06/12 New issues since last visit: Slow recovery since completing treatment. He is able to swallow liquids, however, still having significant throat pain. Recently started on diflucan for thrush. He uses his G-tube for his nutrition. PROBLEM LIST: Patient Active Problem List Diagnoses Code ??? Cancer of base of tongue 141.0C ??? Obesity 278.00M ??? Hyperlipidemia 272.4S ??? Hypertension 401.9AJ ??? Glucose intolerance (impaired glucose tolerance) 790.22U ??? Cigarette smoker 305.1AX ??? Hypothyroidism 244.9AP ??? GERD (gastroesophageal reflux disease) 530.81S ??? Psoriasis 696.1U ??? Sleep apnea 780.57C ??? Anxiety 300.00E ??? Back pain, chronic 724.5BE ??? Thalassemia minor 282.49BP ??? Claustrophobia 300.29C ??? 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 DIFFICULT AIRWAY 402135 ??? Dysphagia, unspecified 787.20 PAST MEDICAL HISTORY: Past Medical History Diagnosis Date ??? Acid reflux ??? Thyroid dysfunction ??? Arthritis ??? Psoriasis SOCIAL HISTORY: History Substance Use Topics ??? Smoking status: Former Smoker -- 1.0 packs/day for 38 years Quit date: 08/06/2011 ??? Smokeless tobacco: Not on file ??? Alcohol Use: 0.6 oz/week 1 Glasses of wine per week rarely one glass of wine occasionally MEDICATIONS: Current outpatient prescriptions ordered prior to encounter Medication Sig Dispense Refill ??? fluconazole (DIFLUCAN) 200 mg tablet Take 1 tablet by mouth daily for 5 days. 5 tablet 0 ??? fentaNYL (DURAGESIC) 50 mcg/hr patch Place 1 patch onto the skin every 72 hours. 5 patch 0 ??? OXYcodone (ROXICODONE) 5 mg immediate release tablet Take 1 tablet by mouth every 4 hours as needed for Pain. 100 tablet 0 ??? LORazepam (ATIVAN) 1 mg tablet Take 2 tablets by mouth. Take prior to bed to assist with sleep.30 tablet 0 ??? ondansetron (ZOFRAN) 8 mg tablet Take 1 tablet by mouth every 8 hours as needed for Nausea. 30 tablet 4 ??? prochlorperazine (COMPAZINE) 10 mg tablet Take 1 tablet by mouth every 6 hours as needed for Nausea. 30 tablet 5 ??? hydrocortisone 1 % cream Apply topically as needed. ??? Saliva Stimulant Agents Comb.3 (BIOTENE MOISTURIZING MOUTH) [place] by Mucous Membrane route as needed. Indications: self ??? SALIVA STIMULANT AGENTS COMB.3 (BIOTENE MOISTURIZING MOUTH MM) by Mucous Membrane route as needed. ??? acetaminophen (TYLENOL) 160 mg/5 mL liquid Take 15 mg/kg/dose by mouth every 4 hours as needed. ??? FLUoxetine (PROZAC) 20 mg capsule Take by mouth daily. ??? B Complex-Vitamin C-Folic Acid (NEPHROCAP) 1 mg capsule Take 1 capsule by mouth daily. ??? cholecalciferol, Vitamin D3, 400 unit tablet Take 400 Units by mouth daily. ??? ascorbic acid (VITAMIN C) 500 mg tablet Take 500 mg by mouth daily. ??? omeprazole (PRILOSEC) 20 mg capsule Take 20 mg by mouth daily. ??? metoprolol succinate (TOPROL-XL) 100 mg XL tablet Take 50 mg by mouth daily. ??? amlodipine-atorvastatatin (CADUET) 5-20 mg per tablet Take 1 tablet by mouth daily. ??? rosuvastatin (CRESTOR) 10 mg tablet Take 10 mg by mouth daily. ??? levothyroxine (SYNTHROID) 137 mcg tablet Take 137 mcg by mouth daily. ??? augmented betamethasone dipropionate (DIPROLENE-AF) 0.05 % ointment Apply topically 2 times daily. ??? DISCONTD: alum-mag hydroxide-simeth (MAALOX) 200-200-20 mg/5 mL suspension Take 15 mLs by mouthas needed. ALLERGIES: No Known Allergies ROS: Pertinent positive findings discussed above. No other findings on review of constitutional visual, cardiovascular, respiratory, gastrointestinal, genitourinary, musculoskeletal, dermatologic, neurological, psychiatric, endocrine, hematologic or immunologic systems. PHYSICAL EXAMINATION: General: Well developed, no distress Head/face: Normocephalic, atraumatic Oral cavity: Normal exam of the lips, teeth/gums, floor of mouth, tongue. Normal oral mucosa. Normal palate. Oropharynx: Mucositis noted along soft palate/tonsillar pillar region. Neck: No adenopathy, no masses, normal thyroid, [...] without any complications. Nasal Cavity: Normal Nasopharynx: Eschar, midline soft palate, BRIM BLOCKER side Oropharynx: Mucositis, cannot assess primary Larynx: Normal Hypopharynx: Normal ASSESSMENT/RECOMMENDATIONS: No clear evidence of recurrence in the early post treatment phase RTC per grid I appreciate the opportunity to be involved in Mr. Wyatt's care. Please do not hesitate to contact me at , (office), (page tumbler operator) or [phone] (mobile) if you have any questions. RIO GANN MD 05/06/2012 documented in this encounter Plan of Treatment Upcoming Encounters Date Type Department Care Team (Late st Contact Info) Description 05/24/2025 11:00 AM EDT Office Visit Radiation Oncology at [address] [phone] Jesse Mcmahan MD [facility] [place] [address] documented as of this encounter Visit Diagnoses Diagnosis Cancer of base of tongue- Primary Malignant neoplasm of base of tongue documented in this encounter Care Teams Plate Gauger Relationship Specialty Start Date End Date Bj Alves MD [address] [place] [phone] PCP - General 06/25/10 04/02/23 documented as of this encounter
--- OUTSIDE RECORDS SUMMARY | 2024-08-01 15:29 | XMS_ITS | Encounter Summary ---
Author Organization [facility] Javier johnsonмарина [place] [address] Care Team Providers Care Can Reconditioner Name Role Phone Bj Alves MD Primary Care Provider [phone] Reason for Visit * Reason Onset Date Comments Nutrition Counseling 08/31/2012 Encounter Details Date Type Department Care Team (Late st Contact Info) Description 08/31/2012 Telephone Hematology Oncology at [address] [phone] Sabine Nash, MANJU [facility] [place] [address] Nutrition Counseling Social History Tobacco Use Types Packs/Day Years [...] Miscellaneous Notes * Telephone Encounter - Sabine Nash, MANJU - 08/31/2012 12:20 PM EST Tc to pt for nutrition follow up. Spoke with Salvador. Also spoke with Beckie Stoner, RITCHIE at [facility]. ANIMAL STICKER has noted improvements. Pt taking risks with po and being aggressive with increasing po intake. She sent him to ENT for scoping. Found vocal cords, pharynx continue to be very swollen; however, no pouch. ANIMAL STICKER would like another MBS around mid-to-late Sep. Pt stated he did see PCP, now back on full dose of synthroid. Wt at PCP was 194 lbs on 08/30/12: increase. Wt: 191 lbs /86.8 kg on home scale. This continues to be stable. Hasn't used tube in one week, since 08/24/12. Since self discontinued TF, has appetite returned. Flushing QOD. Taking 10 mg oxycodone at night, on most night, but not every night. IBW: 69.3 kg kcals: @ 25 kcals/k/IBS: 1700 - 2000 Protein: @ 1.0 - 1.3 g/kg/IBW 86 - 113g/day Intake: White bread B: White toast with cheese, L: ham sandwich on white bread. D: Cheese ravioli with cheese sauce Supplements: Homemade milk shakes, BID (1- 1.5 cups armenian yogurt, ~ 1 cup vanilla ice cream banana (whole), 1 cup blueberries Energy: Feels more energized and motivated. Feeding horses, daily house chores. Running errands. Feet are still some pain and peeling, but better. Also eager to return back to work. Per Salvador, his workplace does not want him back until he is able to return with no restrictions. A/P: Recommended to flush tube daily. Encouraged soft foods. Discussed with pt regarding pulling TF. Pt eager. Reviewed kcal and protein needs, as they remain increased. Also discussed incorporating physical activity and strength training to help with fatigue. Suggested PT may be able to help with this. This has been vocalized in previous [id number] conversations. Will work to schedule Gtube to be pulled on 09/10/12. documented in this encounter Plan of Treatment Upcoming Encounters Date Type Department Care Team (Late st Contact Info) Description 05/24/2025 11:00 AM EDT Office Visit Radiation Oncology at [address] [phone] Jesse Mcmahan MD [facility] [place] [address] documented as of this encounter Visit Diagnoses Not on filedocumented in this encounter Care Teams Can Reconditioner Relationship Specialty Start Date End Date Bj Alves MD [address] [place] [phone] PCP - General 06/25/10 04/02/23 documented as of this encounter
--- OUTSIDE RECORDS SUMMARY | 2024-08-01 15:29 | XMS_ITS | Encounter Summary ---
Author Organization 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 Patient has been enrolled on RTOG 1016 andrandomized to the radiation therapy plus Erbitux arm. Patient, Dx, and Tx: Patient has been enrolled on RTOG 1016 and randomized to the radiation therapyplus Erbitux arm. Completed tx the week of04/08/12. He returns today for ~ 2.5 mo follow up. Assessment: Ht: 175.3 cm Wt:88 kg on 08/06/11; Previous Wts: 89 kg on 06/18/12: stable 89 kg on 06/04/12: 3.3% DECREASE in one month; mild-moderate 92 kg on 05/04/12: increase 92.3 kg on 04/20/12: Increase 91.27 kg on 04/16/12: Decrease; 2.4% in one week: SIGNIFICANT 93.441 kg on 04/09/12 94.38 kg on 04/06/12; 1.5% DECREASE, MODERATE 95.7 kg on 04/02/12 102.967 k olvin 03/19/12; INCREASE 101.152 kg on 03/16/12;1.8% Decrease in one week; Moderate 104 kg: Stable/Increased 103.5 kg on 03/02/12: Stable 103.5 kg on 02/24/12 Initial Wt: 103 kg on 02/17/12 Kcal needs while on treatment: 25-30 kcals at Adj BW: 2000 - 2500 Kcal needs after tx: 1400 - 1800 Protein needs: @ 1.3 - 1.5 g/kg Adj: 108- 125 Fluid needs: 2500 - 3000 mls Labs:NNL Meds: reviewed Food intake as compared to normal: ____Unchanged __X_Increased ____ Decreased P.O. Tomato soup (80 kcal, 2 g pro) with 1/2 cup cream (410 kcals, 5g pro) ,slice of pizza, baked davina (90 kcals, 20 g pro), shake (lithuanian yogurt (130 kcals, 17 g pro), ice cream ( 230 kcals, 4 g pro, and banana or applesauce (~ 40 - 80 kcals). Above intake provides ~ 1000 kcals and 48 g pro G-Tube: Three cans Fibersource HN/d, running nocturnally via pump. Teas, vitamins, or other nutritional supplements: D3 Food allergies or avoidances: knfa Appetite: Does have one now during the day, Nausea: denies Vomiting: denies Chewing: denies Swallowing: Painful,03/12. Takes 5 mg of roxicodone at night. Throat is raw Xerostomia: +, does soda/salt rinses throughout the day, uses [place] and Biotene. Taste Changes: +, dysguesia. Bowels: Going daily Activity: not much Food availability/purchasing, meal planning and preparation: He does this, doesn't cook very well and he prefers her to come into the kitchen. Depression: n/a, affect continues to be very optimistic and upbeat Social Support: States it is wonderful. and dtr (10 YO) very supportive. Economic Issues: none Physical Activity/Fatigue: Cat napping throughout the day. Not much activity during the day. Level of Motivation/Readiness to Change: Action Nutrition Diagnosis: Hypermetabolism related to tongue cancer as evidenced by decrease of .~ 13% unintentional weight loss through the course of his treatment. He continues to see UPSETTER SETTER UP at [facility] once/week. Has been there three times now. She advised him that he is taking calculated risks by eating solids, yet he continues to do so. Also he continues to gradually wean TF. He has decreased TF to three/day. This provides: 900 kcal, 40.5 g pro and 609 mls of free water. His current intake plus p.o provides 1900 kcals and 80 g pro. His P O. intake has increased despite his throat pain. States it doesn't matter what he eats (texture vs. Acidity). He has purchased a scale for home and has been tracking weight. His weight has increased. His activity has increased since p.o. Has increased. States she feel more ambitious. He does house chores, feeding horses, and shoveling snow. Late effects of chemo with peeling skin on hands and feet. His feet do cause pain and this limits his ability for physical activity. He does use Jeans' Cream for moisture. Encouraged him for PT for lymphedema. As pt stated he did receive a call from PT and said he didn'twant to pursue it because PT had stated it was for shoulder pain. He is eager to return to work part-time in Sep. Stated he faxed papers into Dr. Mcmahan's office before , but has not heard from them. Nutrition Intervention: Increase caloric needs : Discussed Modify diet consistency: soft diet Increase frequency of meals and snacks : q 2-3 hours Need for supplements : Nutrition Goals: Weight maintenance and PBM preservation -- Continue consuming 8 cans Fibersource H/N during the night. -- Increase p.o. Educational Handouts provided: -- Protein needs and sources -- Dirty Dozen and Clean Fifteen F& V list -- High Dean/Pro milk shake recipes -- Power pudding recipe Other: Monitoring and Evaluation: Will follow up with Mr Nayan Wyatt in one week after his scheduled UPSETTER SETTER UP visit to determine next steps with weaning. documented in this encounter Plan of Treatment Upcoming Encounters Date Type Department Care Team (Late st Contact Info) Description 05/24/2025 11:00 AM EDT Office Visit Radiation Oncology at [address] [phone] Jesse Mcmahan MD [facility] [place] [address] documented as of this encounter Visit Diagnoses Not on filedocumented in this encounter Care Teams Marine Fuel Dock Attendant Relationship Specialty Start Date End Date Bj Alves MD [address] [place] [phone] PCP - General 06/25/10 04/02/23 documented as of this encounter
--- OUTSIDE RECORDS SUMMARY | 2024-08-01 15:29 | XMS_ITS | Encounter Summary ---
Author Organization [facility] [place] [address] Care Team Providers Care Economist Research Assistant Name Role Phone Bj Alves MD Primary Care Provider [phone] Reason for Visit * Reason Comments Head And Neck Cancer Encounter Details Date Type Department Care Team (Late st Contact Info) Description 05/04/2012 10:30 AM EDT Follow-Up Hematology Oncology at [address] [phone] Hood Underwood MD Thrush (Primary Dx); Head and neck cancer Discharge Disposition: Home Social History Tobacco Use [...] Sign Reading Time Taken Comments Blood Pressure 140/89 05/04/2012 10:22 AM EDT Pulse 72 05/04/2012 10:22 AM EDT Temperature 36.5 ??C (97.7 ??F) 05/04/2012 10:22 AM E DT Respiratory Rate 16 05/04/2012 10:22 AM EDT Oxygen Saturation 98% 05/04/2012 10:22 AM EDT Inhaled Oxygen Concentration - - Weight 92 kg (202 lb 13.2 oz) 05/04/2012 10:22 A M EDT Height 175.3 cm (5' 9.02) 05/04/2012 10:22 AM E DT Body Mass Index 29.94 05/04/2012 10:22 AM EDT documented in this encounter Progress Notes * Hood Underwood MD - 05/04/2012 2:01 PM EDTAddended by: HOOD UNDERWOOD on: 05/04/2012 Modules accepted: Orders * Hood Underwood MD - 05/04/2012 1:59 PM EDT Diagnosis: 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 Patient has been enrolled on RTOG 1016 andrandomized to the radiation therapy plus Erbitux arm. Subjective: Salvador comes in today for followup. He is doing better overall but has not gained much ground in thepast week or so. He's not eating much orally yet mainly because things do not taste well and has nosense of smell. Still has some soreness in his throat as well with swallowing perhaps is a little bit better. His tube feedings are going well and he does work himself up each evening for that. His weight has been stable and he is gaining some strength daily. He does have followup with ENT. Past medical history and social history are unchanged from when I saw him 2 weeks ago. Review of Systems Constitutional: Negative for fever, chills, activity change, fatigue and unexpected weight change. HENT: Positive for sore throat, but no mouth sores and trouble swallowing. Eyes: Negative. Respiratory: Negative for cough, shortness of breath and wheezing. Cardiovascular: Negative for chest pain, palpitations and leg swelling. Gastrointestinal: Negative for nausea, vomiting, abdominal pain, diarrhea, constipation and abdominal distention. Genitourinary: Negative for dysuria and difficulty urinating. Musculoskeletal: Negative. Skin: Negative. Neurological: Negative. Hematological: Negative for adenopathy. Head: Normocephalic, without obvious abnormality, atraumatic Eyes: PERRL, conjunctiva/corneas clear, EOM's intact, fundi benign, both eyes Ears: Normal TM's and external ear canals, both ears Nose: Nares normal, septum midline, mucosa normal, no drainage or sinus tenderness Throat: Lips OK. He has a few white plaques present on the tongue. He is unable to open his mouth enough for me to be able to see the posterior pharynx. Neck: Supple, symmetrical, trachea midline, no adenopathy, thyroid: not enlarged, symmetric, no tenderness/mass/nodules, no carotid bruit or JVD Back: Symmetric, no curvature, ROM normal, no CVA tenderness Lungs: Clear to auscultation bilaterally, respirations unlabored Chest Wall: No tenderness or deformity Heart: Regular rate and rhythm, S1, S2 normal, no murmur, rub or gallop Abdomen: Soft, non-tender, bowel sounds active all four quadrants, no masses, no organomegaly Extremities: Extremities normal, atraumatic, no cyanosis or edema Pulses: 2+ and symmetric Skin: Skin color, texture, turgor normal, no rashes or lesions Lymph nodes: Cervical, supraclavicular, and axillary nodes normal Neurologic: Normal Lab today is excellent. His TSH is 1.76. CBC shows white count of 8.4 hemoglobin of 11.9 [id number] platelet count of 2:15. CMP is completely normal with creatinine of 0.8 and albumin of 4.0 andnormal liver tests. Magnesium is 2.0. Assessment/Plan: Salvador is doing extremely well at this point in time. I do have some concern he may have some oral thrush and in this regard we will start him on Diflucan 200 mg daily for 5 days. He has followup withENT and he should be able to do a pharyngeal exam with endoscopy. At the current time he cannot open his mouth completely and he may end up needing some speech therapy and swallowing studies althoughthings do seem to be going down well. From our standpoint we'll see him back in a month with a TSH.Once he is eating and drinking well we will get his feeding tube out. He'll let us know if any issues or problems develop in the interim. documented in this encounter Procedure Notes * Provider, Scanning - 06/03/2012 1:26 PM EDTAssociated Order(s): SCAN DOC: LAB * Provider, Scanning - 06/03/2012 12:50 PM EDTAssociated Order(s): SCAN DOC: LAB * Provider, Scanning - 05/04/2012 11:00 AM EDTAssociated Order(s): SCAN DOC: LAB documented in this encounter Plan of Treatment Upcoming Encounters Date Type Department Care Team (Late st Contact Info) Description 05/24/2025 11:00 AM EDT Office Visit Radiation Oncology at [address] [phone] Jesse Mcmahan MD [facility] DR RADIATION [place] [address] documented as of this encounter Procedures Procedure Name Priority Date/Time Associated Diagnosis Comments LAB SCAN 06/03/2012 1:26 PM EDT LAB SCAN 06/03/2012 12:50 PM EDT LAB SCAN 05/04/2012 11:00 AM EDT documented in this encounter Results * SCAN DOC: LAB (06/03/2012 1:26 PM EDT) Narrative 06/03/2012 1:26 PM EDT Procedure Note Provider, Scanning - 06/03/2012 1:26 PM EDT Scanning Provider MEDIA MGR SCAN EXT O RDR/RSLT * SCAN DOC: LAB (06/03/2012 12:50 PM EDT) Narrative 06/03/2012 12:50 PM EDT Procedure Note Provider, Scanning - 06/03/2012 12:50 PM EDT Scanning Provider MEDIA MGR SCAN EXT O RDR/RSLT * SCAN DOC: LAB (05/04/2012 11:00 AM EDT) Narrative 05/04/2012 11:00 AM EDT Procedure Note Provider, Scanning - 05/04/2012 11:00 AM EDT Scanning Provider MEDIA MGR SCAN EXT O RDR/RSLT documented in this encounter Visit Diagnoses Diagnosis Thrush- Primary Candidiasis of mouth Head and neck cancer Malignant neoplasm of head, face, and neck documented in this encounter Care Teams Economist Research Assistant Relationship Specialty Start Date End Date Bj lAves MD [address] [place] [phone] PCP - General 06/25/10 04/02/23 documented as of this encounter
--- OUTSIDE RECORDS SUMMARY | 2024-08-01 15:29 | XMS_ITS | Encounter Summary ---
Author Organization [facility] [address] Care Team Providers Care Arts Administrator Or Manager Name Role Phone Bj Alves MD Primary Care Provider [phone] Encounter Details Date Type Department Care Team (Latest Contact Info) Description 07/06/2012 11:00 AM EST - 07/06/2012 11:34 AM EST Hospital Encounter Hematology [place] [phone] Cancer of base of tongue; Hypothyroidism Social History Tobacco Use Types Packs/Day Years [...] as of this encounter Progress Notes * Melissa Wolff RN - 07/06/2012 11:29 AM EST Patient Name: Sebastian Wyatt Patient Age: 57 y.o. Birthdate: 1955 Admit date: 07/06/2012 Attending Physician: No att. providers found Mediport accessed for labs. documented in this encounter Plan of Treatment Upcoming Encounters Date Type Department Care Team (Late st Contact Info) Description 05/24/2025 11:00 AM EDT Office Visit Radiation Oncology at [address] [phone] Jesse Mcmahan MD [facility] [place] [address] documented as of this encounter Procedures Procedure Name Priority Date/Time Associated Diagnosis Comments DIFFERENTIAL, AUTOMATED Routine 07/06/2012 11:25 AM EST CBC (WITH DIFF) Routine 07/06/2012 11:25 AM EST Cancer of base of tongue Hypothyroidism TSH Routine 07/06/2012 11:25 AM EST Cancer of base of tongue Hypothyroidism COMPREHENSIVE METABOLIC PANEL Routine 07/06/2012 11:25 AM EST Cancer of base of tongue Hypothyroidism documented in this encounter Results * (ABNORMAL) Differential, Automated (07/06/2012 11:25 AM EST) Neutrophil % 77.3(H) 34.0 - 71.0 % CERNER MILLENNIUM Neutrophil Absolute 7.93(H) 1.50 - 6.30 x10(3)/mc L CERNER MILLENNIUM Lymph % 13.6(L) 19.0 - 53.0 % CERNER MILLENNIUM Lymphocytes Abs 1.4 1.0 - 3.6 x10(3)/mc L CERNER MILLENNIUM Monocyte % 6.8 4.0 - 13.0 % CERNER MILLENNIUM Monocyte Abs 0.7 0.2 - 1.0 x10(3)/mc L CERNER MILLENNIUM Eos % 1.4 0.0 - 7.0 % CERNER MILLENNIUM Eosinophils Abs 0.1 0.0 - 0.5 x10(3)/mc L CERNER MILLENNIUM Basophil % 0.5 0.0 - 2.0 % CERNER MILLENNIUM Baso Absolute 0.0 0.0 - 0.2 x10(3)/mc L CERNER MILLENNIUM Immature Gran % 0.40 0.00 - 0.66 % CERNER MILLENNIUM Comment: Immature granulocytes(IG's)percentage and absolute count will include metamyelocytes, myelocytes, and promyelocytes. Blood smears from CBCs yielding IG's will be scanned manually for concordance. If this scan disagrees with the automated IG or if promyelocytes are noted, a manual differential will be performed. Immature Gran Absolute 0.04 0.00 - 0.05 x10(3)/mc L CERNER MILLENNIUM Blood specimen (specimen) 07/06/2012 11:25 AM EST 07/06/2012 11:45 AM EST Butch Catalan MD HEMATOLOGY ORDERABLE S CERNER MILLENNIUM * (ABNORMAL) TSH (07/06/2012 11:25 AM EST) Thyroid Stimulating Hormone 0.14(L) 0.27 - 4.20 mcIU/mL CERNER MILLENNIUM Blood specimen (specimen) 07/06/2012 11:25 AM EST 07/06/2012 11:45 AM EST Narrative Resulting Agency Comment Spec In Lab Butch Catalan MD CHEMISTRY ORDERABLES Performing Organization Address City/[facility] Co de Phone Number CERNER MILLENNIUM * (ABNORMAL) CBC (with Diff) (07/06/2012 11:25 AM EST) White Blood Cell 10.2(H) 4.0 - 10.0 x10(3)/mc L CERNER MILLENNIUM Red Blood Cell 6.37(H) 4.63 - 6.08 x10(6)/mc L CERNER MILLENNIUM Hemoglobin 13.3(L) 13.7 - 17.5 gm/dL CERNER MILLENNIUM Hematocrit 41.4 40.0 - 51.0 % CERNER MILLENNIUM Mean Cell Volume 65.0(L) 79.0 - 92.0 fL CERNER MILLENNIUM Mean Cell Hemoglobin 20.9(L) 25.6 - 32.2 pg CERNER MILLENNIUM Mean Cell Hemoglobin Concentration 32.1 32.0 - 36.5 gm/dL CERNER MILLENNIUM Platelet 209 145 - 370 x10(3)/mc L CERNER MILLENNIUM RDW Standard Deviation 36.2 35.0 - 46.0 fL CERNER MILLENNIUM RDW coefficient of variation 15.9(H) 10.9 - 14.4 % CERNER MILLENNIUM Mean Platelet Volume Not Measured 9.0 - 12.0 fL CERNER MILLENNIUM Blood specimen (specimen) 07/06/2012 11:25 AM EST 07/06/2012 11:45 AM EST Narrative Resulting Agency Comment Spec In Lab Butch Catalan MD HEMATOLOGY ORDERABLE S CERNER MILLENNIUM * (ABNORMAL) Comprehensive metabolic panel (non-fasting) (07/06/2012 11:25 AM EST) Glucose 107 60 - 199 mg/dL CERNER MILLENNIUM Comment:Diabetes: >=200 mg/d L plus symptoms Blood Urea Nitrogen 20 10 - 20 mg/dL CERNER MILLENNIUM Creatinine 1.13 0.80 - 1.50 mg/dL CERNER MILLENNIUM Comment: Please note that the pediatric reference intervals supplied above were not validated at [facility]. Results from pediatric patients should be interpreted in conjunction to the patient's age, height and muscle mass. Sodium 139 135 - 145 mmol/L CERNER MILLENNIUM Potassium 4.3 3.5 - 5.0 mmol/L CERNER MILLENNIUM Comment: Please note: ??Patients with WBC >100,000 may have falsely elevated Potassium levels. ??For accurate Potassium quantification in these patients send serum separator tube (gold top) for subsequent determinations. ??Contact the Clinical Chemistry Laboratory if there are any questions. Chloride 101 98 - 107 mmol/L CERNER MILLENNIUM Carbon Dioxide 28 22 - 31 mmol/L CERNER MILLENNIUM Anion Gap 10 5 - 15 mmol/L CERNER MILLENNIUM Calcium 10.6(H) 8.5 - 10.5 mg/dL CERNER MILLENNIUM Protein, Total 8.0 6.4 - 8.3 gm/dL CERNER MILLENNIUM Albumin 4.5 3.2 - 5.2 gm/dL CERNER MILLENNIUM Aspartate Aminotransferase 18 0 - 39 unit/L CERNER MILLENNIUM Alanine Aminotransferase 18 0 - 55 unit/L CERNER MILLENNIUM Alkaline Phosphatase 88 40 - 120 unit/L CERNER MILLENNIUM Bilirubin, Total 0.6 0.2 - 1.3 mg/dL CERNER MILLENNIUM Bilirubin, Direct 0.1 0.0 - 0.3 mg/dL CERNER MILLENNIUM Est Glomerular Filtration Rate >60 >=60 CERNER MILLENNIUM Comment: The National Kidney Disease Education Program (NKDEP) has recommended all laboratories report estimated GFR (eGFR) along with plasma creatinine measurements to assist you with recognition of early kidney disease. Caveats: ??Plasma creatinine should be at steady-state (unchanged within the past week). For patients multiply eGFR by 1.2. The MDRD equation was developed using patients between the ages of 18 and 70 years. ?? The MDRD equation has not been validated for patients < 18 years of age and should not be used to assess renal function in the pediatric population. ??The MDRD eGFR equation will also overestimate the true GFR of patients above the age of 70. ??This overestimation is variable but increases with age. At present, NKDEP does NOT recommend using the MDRD equation for drug dosing purposes and pharmacists should continue to use their current dosing methods. In addition, numerical eGFR values greater than 60 ml/min/1.73 square meters should be treated as > 60, and not an exact number due to greater inaccuracies at these higher values. Per NKDEP, they classify normal renal function as any GFR >60ml/min/1.73 square meters; chronic kidney disease when GFR <60, and renal failure when GFR <15. ??This calculation may not be valid for patients with atypical muscle mass (very lean or obese), acute renal failure, and in patients with diabetic kidney disease. References: http://nkdep.nih.gov/resources/NKDEP_Suggestn4Labs_0606_508.pdf http://www.kidney.org/professionals/kls/pdf/faq_gfr.pdf Lauryn K, Ari NA, Adan AK, Santino TS, Елена AD, Luigi MODESTO. Relative performance of the MDRD and CKD-EPI equations for estimating glomerular filtration rate among patients with varied clinical presentations. Clin J Am Soc Nephrol;6:1963-72. Blood specimen (specimen) 07/06/2012 11:25 AM EST 07/06/2012 11:45 AM EST Narrative Resulting Agency Comment Spec In Lab Butch Catalan MD CHEMISTRY ORDERABLES [facility] documented in this encounter Visit Diagnoses Diagnosis Cancer of base of tongue Malignant neoplasm of base of tongue Hypothyroidism Unspecified hypothyroidism documented in this encounter Care Teams Arts Administrator Or Manager Relationship Specialty Start Date End Date Bj Alves MD [address] [place] [phone] PCP - General 06/25/10 04/02/23 documented as of this encounter
--- OUTSIDE RECORDS SUMMARY | 2024-08-01 15:29 | XMS_ITS | Encounter Summary ---
Author Organization [facility] [place] [address] Care Team Providers Care Urban Planner Name Role Phone Ash Hernandez MD Primary Care Provider [phone] Reason for Visit * Reason Comments Radiation Follow-up Encounter Details Date Type Department Care Team (Late st Contact Info) Description 07/06/2012 3:00 PM EST Follow-[place] [address] Jesse Mcmahan MD [facility] [place] [address] Cancer of base of tongue (Primary Dx) [...] as of this encounter Progress Notes * Jesse Mcmahan MD - 07/06/2012 4:34 PM EST Radiation Oncology Follow Up Note [...] ?? 12/09/11 CT H&N with contrast ([facility]): Mixed attenuation mass with lare low density areas suggesting necrotic change present deep to anterior aspect L SCM. Mass smoothly marginated, max 3.3 x 5.2 cm. ?? 11/27/11 PET-CT ([facility]): Despite premedication, severe claustrophobia allowed [...] ??? 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 DIFFICULT AIRWAY 200559 ??? Dysphagia, unspecified 787.20 Interval History: Sebastian Wyatt returns for routine follow up having last been seen ~ 2 monthsago. he completed radiotherapy approximately 3 months prior. Currently he notes the following symptoms: Symptom Description Ongoing Intervention Dysphagia Tolerating most foods, limited primarily by pain PEG tube Odynophagia Pain noted with swallowing, worse towards end of the day, avoiding spicy foods Narcoticanalgesia Trismus Denies Weight Loss Significant weight loss over the past two months: 202 => 185 lbs PEG feedings Diet Modifications Eating most foods in small volume Neck Symptoms L shoulder pain, associated with turning head and driving, posterior aspect. Described as burning/sharp pain. Dental Issues Denies Otalgia/Referred Pain Denies Other Pain Denies No Known Allergies Current Outpatient Prescriptions on File Prior to Visit Medication Sig Dispense Refill ??? fluconazole (DIFLUCAN) 100 mg tablet Take by mouth. 200 mg day 1 and the 100 mg for 9 days. 11 tablet 0 ??? FLUoxetine (PROZAC) 10 mg capsule Take 1 capsule by mouth daily. Take with the 20mg tab so 30mgtotal. 30 capsule 12 ??? DISCONTD: zolpidem (AMBIEN) 5 mg tablet Take 5 mg by mouth nightly as needed. ??? OXYcodone (ROXICODONE) 5 mg immediate release [...] needed for Nausea. 30 tablet 4 ??? SALIVA STIMULANT AGENTS COMB.3 (BIOTENE MOISTURIZING [...] tablet Take 137 mcg by mouth daily. Current Facility-Administered Medications on File Prior to Visit Medication Dose Route Frequency Provider Last Rate Last Dose ??? DISCONTD: sodium chloride 0.9 % flush 5 mL 5 mL Intravenous Q12H Mamadou Connolly MD ??? DISCONTD: lactated ringers infusion 1,000 mL 1,000 mL Intravenous Continuous Mamadou Connolly MD Past Medical History Diagnosis Date ??? Acid reflux ??? Thyroid dysfunction ??? Arthritis ??? Psoriasis Past Surgical History Procedure Date ??? Carpal tunnel release rt ??? Laryngoscopy, dirct, op scope, biopsy 12/12/2011 LARYNGOSCOPY, MICROSCOPE, WITH BIOPSY performed by BECKY GANN at [facility] MAIN OR ??? Laryngoscopy, dirct, op scop, exc tumr 12/12/2011 LARYNGOSCOPY, DIRECT, EXCISION OF TUMOR, CORD STRIPPING, MICRO performed by BECKY GANN at [facility] MAIN OR ??? Scan doc: pet scan 01/16/2012 PET SCAN performed by LES REYNOLDS at [facility] Physical Examination: There were no vitals [...] basins. Small area of hypopigmentation L neck. Musculoskeletal: Palms and soles with erosive, erythematous lesions bilaterally. Neurological: He is alert and oriented to person, place, and time. No cranial nerve deficit. Skin: Palms and soles with erosive, erythematous lesions bilaterally. Procedure: Flexible laryngoscopy was performed. The right naris was anesthetized with aerosolized lidocaine, and the laryngoscope was passed without difficulty. The nasopharynx examination revealed aflat whitish/yellow area ~ 0.5 cm in maximal dimension in the middle of the posterior nasopharynx. Not erosive, erythematous exophytic. Most c/w minor salivary gland impaction or mucous. The oropharynx, larynx, and piriform sinuses were visualized and were without masses or lesions. The vocal cordsapposed without difficulty. There was was edema of the supraglottic larynx. Patchy, small volume mucositis still evident L base of tongue, lateral pharyngeal wall and vallecula. No thrush noted. Interval Imaging: PET/CT SKULL BASE TO MID-THIGH Technique Procedure: Following IV injection of 97-uorrbw-3-deoxyglucose (FDG) and a standard uptake period, a [...] or distant metastases. 3. Incidental thyroiditis, unchanged. Assessment: Sebastian Wyatt is now ~ 3 months out from definitive RT + cetuximab on RTOG 1016: ?? Squamous cell carcinoma of the BOT ?? Clinically: clinically he has MARCO. On DL nasopharyngeal findings most consistent with benign mucus retention of minor salivary gland. Will continue to follow. ?? Radiographically: interval imaging demonstrates MARCO ?? Radiation toxicity: ?? Xerostomia: Moderate, using water/biotene to assist ?? Dysphagia: denies significant dysphagia. Using TFs primarily secondary to OP pain. Discussed plan of removing 1 can from TF every 5 days and switching to equivalent oral intake. He was in agreement with this plan. ?? Pain: associated with swallowing, using pain medication to some effect. Expect continued resolution. He is to keep using pain medication prn, stay away from irritating foods. ?? Fibrosis/Edema: minimal. He does have some L neck pain of unclear etiology. Unlikely to be biological sequela of RT, but possibly represents mechanical issue secondary to mask or osteoarthritis. Discussed physical therapy which he was amenable to. ?? Fatigue: severe. Expect continued improvement over time, reassurance given. He will need to be off of work until at least mid August given his current level of side effects. ?? Thyroiditis: TSH low, may be over medicated. Asked to decrease synthroid by half, will re-evaluate at next visit. Plan: ?? FU: follow up with radiation oncology per NCC algorithm documented in this encounter Plan of Treatment Upcoming Encounters Date Type Department Care Team (Late st Contact Info) Description 05/24/2025 11:00 AM EDT Office Visit Radiation Oncology at [address] [phone] Jesse Mcmahan MD [facility] [place] [address] documented as of this encounter Visit Diagnoses Diagnosis Cancer of base of tongue- Primary Malignant neoplasm of base of tongue documented in this encounter Care Teams Urban Planner Relationship Specialty Start Date End Date Ash Hernandez MD [address] [place] [phone] PCP - General 06/25/10 04/02/23 documented as of this encounter
--- OUTSIDE RECORDS SUMMARY | 2024-08-01 15:29 | XMS_ITS | Encounter Summary ---
Author Organization [facility] [place] [address] Care Team Providers Care Server Developer Name Role Phone Bj Alves MD Primary Care Provider [phone] Encounter Details Date Type Department Care Team (Late Contact Info) Description 07/06/2012 4:00 PM EST Office Visit Hematology [place] [address] Social History Tobacco Use Types Packs/Day Years [...] AM EDT Office Visit Radiation Oncology at [address] [phone] Jesse Mcmahan MD [facility] [place] [address] documented as of this encounter Visit Diagnoses Not on filedocumented in this encounter Care Teams Server Developer Relationship Specialty Start Date End Date Bj Alves MD [address] [place] [phone] PCP - General 06/25/10 04/02/23 documented as of this encounter
--- OUTSIDE RECORDS SUMMARY | 2024-08-01 15:29 | XMS_ITS | Encounter Summary ---
Author Organization [facility] Address [facility] [place] [address] Care Team Providers Care Remediation Technician Name Role Phone Bj Alves MD Primary Care Provider [phone] Reason for Referral * Physical Therapy (Routine) - Closed by system - unspecified Specialty Diagnoses / Procedures Referred By Contac t Referred To Contact Physical Therapy Diagnoses Cancer of base of tongue Shannan Johnson APRN [facility] [place] [address] Referral ID Status Reason Start Date Expiration Date Visits Requested Visits Authorized [id number] Closed by system - unspecified Evaluate and Treat 12/17/2012 06/15/2013 1 1 Reason for Visit * Reason Comments Radiation Follow-up head and neck cancer Encounter Details Date Type Department Care Team (Late st Contact Info) Description 12/16/2012 2:30 PM EDT Follow-Up Radiation Oncology at [address] [phone] Shannan Johnson APRN Cancer of base of tongue (Primary Dx); Hypothyroidism Discharge Disposition: Home Social History Tobacco [...] Sign Reading Time Taken Comments Blood Pressure 148/95 12/16/2012 2:28 PM EDT Pulse 73 12/16/2012 2:28 PM EDT Temperature 36.6 ??C (97.9 ??F) 12/16/2012 2:28 PM ED T Respiratory Rate 18 12/16/2012 2:28 PM EDT Oxygen Saturation 98% 12/16/2012 2:28 PM EDT Inhaled Oxygen Concentration - - Weight 90.3 kg (199 lb) 12/16/2012 2:28 PM EDT Height - - Body Mass Index 26.99 10/18/2012 3:08 PM EDT documented in this encounter Progress Notes * Shannan Johnson, FLAME HARDENER - 12/16/2012 4:13 PM EDT Subjective: Patient ID: Sebastian Wyatt is a 57 y.o. male. 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 1 PPD x 38 yrs. Quit 08/2011. Developed odynophagia early 11/2011, abx did not improve, . Referred to ENT. He does note some coughing in the morning ove the past year. Stagin12/09/11 CT H&N with contrast (ON LICENSE OF [facility]): Mixed attenuation mass with lare low density areas suggesting necrotic change present deep to anterior aspect L SCM. Mass smoothly marginated, max 3.3 x 5.2 cm. 11/27/11 PET-CT ([facility]): Despite premedication, severe claustrophobia allowed this can [...] ??? 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 DIFFICULT AIRWAY [id number] ??? Dysphagia, unspecified 787.20 Past Surgical History Procedure Date ??? Carpal tunnel release rt ??? Laryngoscopy, dirct, op scope, biopsy 12/12/2011 LARYNGOSCOPY, MICROSCOPE, WITH BIOPSY performed by BECKY GANN at [facility] OR ??? Laryngoscopy, dirct, op scop, exc tumr 12/12/2011 LARYNGOSCOPY, DIRECT, EXCISION OF TUMOR, CORD STRIPPING, MICRO performed by BECKY GANN at [facility] OR ??? Scan doc: pet scan 01/16/2012 PET SCAN performed by LES REYNOLDS at [facility] ??? Scan doc: pet scan 07/06/2012 PET SCAN performed by Anesthesia-Iris Reynolds at [facility] No Known Allergies Current Outpatient Prescriptions on File Prior to Visit Medication Sig Dispense Refill ??? DISCONTD: gabapentin (NEURONTIN) 100 mg capsule One pill by mouth three times a day x 1 week, increase to two pills three times a day x 1 week, increase to three pills three times a day. 90 capsule 1 ??? GLYCERIN (OASIS MOISTURIZING MOUTH MM) by Mucous Membrane route as needed. ??? amlodipine-benazepril (LOTREL) 5-10 mg per capsule [...] 10 mg by mouth daily. ??? DISCONTD: levothyroxine (SYNTHROID) 137 mcg tablet Take 175 mcg by mouth daily. ??? methotrexate 2.5 mg tablet Take by mouth once a week. Can take without regard to food. Call clinic before/prior to starting medication/script. ??? DISCONTD: PREDNISONE ORAL Take by mouth. ??? DISCONTD: celecoxib (CELEBREX) 200 mg capsule Take 200 mg by mouth daily. ??? DISCONTD: OXYcodone (ROXICODONE) 5 mg immediate release tablet Take 1 tablet by mouth every 4 hours as needed for Pain. 100 tablet 0 ??? 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 Lives near [facility] with , 10yo daughter, 2 horses, 2 dogs. Interval History: Sebastian Wyatt returns for routine follow up having completed radiotherapy approximately 8 months prior. Diagnosed with psoriatic arthritis by [employer] recently, now on MTX but no longer on prednisone. Currently he notes the following symptoms: Symptom Description Ongoing Intervention Dysphagia No choking or coughing unless eating large volumes quickly Not seeing SPECIALTY SALES REPRESENTATIVE at this time. Odynophagia Chronic pain associated with eating, often intense, using minimal pain medication as hedoes not feel that it is necessary Oxycodone prn Trismus Improving, doing exercises. PT exercises Weight Loss 185 => 199 lbs Diet Modifications Eating most foods, limited by pain. Neck Symptoms L shoulder pain, no change. Chronic at some level, intermittent flares. Stopped the gabapentin taste improving Dental Issues Some tenderness when flossing, using dental trays Following with dentistry Otalgia/Referred Pain Notes right otalgia several times a day, escalating pain over a short period of time, then resolves slowly Has been going on for 3-4 months. Left ear notes a sensation of pulsation associated with low pain. Started a few weeks prior. Xerostomia Improving over time Other Pain Pain associated knees, ankles and shoulders due to psoriatic arthritis. MTX, --prednisone is done He continues to have difficulty with fatigue, insomnia. Fatigue is often profound, unable to stay awake in the afternoons. He had labs done 12/10 and TSH was increased to 55. His levothyroxine was increased to 175 mcg a bettina couple of days ago. Review of Systems Constitutional: Positive for fatigue. Negative for fever, diaphoresis, appetite change and unexpected weight change. [Working 6 hours four days a week and four hours on Thursday HENT: Positive for tinnitus. Negative for sore throat, mouth sores and dental problem. [Swelling under chin Eyes: Negative. Respiratory: Negative for cough, chest tightness, shortness of breath and wheezing. Cardiovascular: Negative for chest pain. Musculoskeletal: Positive for joint swelling and arthralgias. Skin: Negative. Neurological: Negative for tremors. [Balance is difficult when walking on uneven surfaces and it creates pain involving his legs Hematological: Negative. Psychiatric/Behavioral: Positive for disturbed wake/sleep cycle. Negative for dysphoric mood. The patient is not nervous/anxious. [Some short term memory changes Filed Vitals: 12/16/12 1428 BP: 148/95 Pulse: 73 Temp: 36.6 ??C (97.9 ??F) TempSrc: Oral Resp: 18 Weight: 90.266 kg (199 lb) SpO2: 98% KPS: 90 Objective: Physical Exam Constitutional: He is oriented to person, place, and time. He appears well- developed and well-nourished. No distress. HENT: Head: Normocephalic. Mouth/Throat: Oropharynx is clear and moist. No oropharyngeal exudate. Saliva is thick Tongue is midline and mobile No mucositis +lymphedema under chin Eyes: Conjunctivae are normal. No scleral icterus. Neck: Normal range of motion. Neck supple. Cardiovascular: Normal rate, regular rhythm and normal heart sounds. Exam reveals no gallop and no friction rub. No murmur heard. Pulmonary/Chest: Effort normal and breath sounds normal. No respiratory distress. He has no wheezes. He has no rales. He exhibits no tenderness. Musculoskeletal: He exhibits no edema and no tenderness. Lymphadenopathy: Head (right side): No submental, no [...] Cancer base of tongue: MARCO. He has some under the chin fullness. He was not happy with the care he received at [facility] PT and asked for a referral at [facility] with their lymphedema specialist which we will arrange. Pain: pain is unchanged. He has been started on methotrexate for his psoriatic arthritis pain. He prefers to not use pain medication. He continues with severe pain with swallowing. He had been given a Rx for gabapentin by Dr Catalan and he did not take other than a day or two because he was starting the MTX at about that time. Hypothyroidism: TSH was elevated at 55.4. His levothyroxine was increased two days ago to 175 mcg aday. We reviewed the need to take his medication at the same time every day and on an empty stomach. Fatigue continues and limits the amount of time he can work Coping: He is struggling with how long he will be able to continue to work. He is currently workingpart time and due to fatigue cannot do more. He wants to work for as long as he can and hopes his employer will enable that to continue. He has applied for ADA consideration given his medical issues. We will see patient again as per head and neck grid. documented in this encounter Procedure Notes * Provider, Scanning - 12/22/2012 11:13 AM EDTAssociated Order(s): SCAN DOC: LAB documented in this encounter Plan of Treatment Upcoming Encounters Date Type Department Care Team (Late st Contact Info) Description 05/24/2025 11:00 AM EDT Office Visit Radiation Oncology at [address] [phone] Jesse Mcmahan MD [facility] [place] [address] Scheduled Referrals Name Type Priority Associated Diagnoses Orde r Schedule Referral to Physical Therapy Outpatient Referral Routine Cancer of base of tongue Ordered: 12/17/2012 documented as of this encounter Procedures Procedure Name Priority Date/Time Associated Diagnosis Comments LAB SCAN 12/22/2012 11:13 AM EDT documented in this encounter Results * SCAN DOC: LAB (12/22/2012 11:13 AM EDT) Narrative 12/22/2012 11:13 AM EDT Procedure Note Provider, Scanning - 12/22/2012 11:13 AM EDT Scanning Provider MEDIA MGR SCAN EXT O RDR/RSLT documented in this encounter Visit Diagnoses Diagnosis Cancer of base of tongue- Primary Malignant neoplasm of base of tongue Hypothyroidism Unspecified hypothyroidism documented in this encounter Care Teams Remediation Technician Relationship Specialty Start Date End Date Bj Alves MD [address] [place] [phone] PCP - General 06/25/10 04/02/23 documented as of this encounter
--- OUTSIDE RECORDS SUMMARY | 2024-08-01 15:29 | XMS_ITS | Encounter Summary ---
Author Organization [facility] [place] [address] Care Team Providers Care Head Irrigator Name Role Phone Bj Alves MD Primary Care Provider [phone] Encounter Details Date Type Department Care Team (Latest Contact Info) Description 07/06/2012 11:35 AM EST - 07/06/2012 4:13 PM EST Hospital Encounter [place] [phone] RESOURCE, ANESTHESIA-HUMERA Mamadou Ingram MD [facility] [place] [address] Cancer of base of tongue; Hypothyroidism Discharge Disposition: Home Social History Tobacco [...] Vega RN - 07/06/2012 4:08 PM EST I/rBittany Patiño RN flushed patient's port with 20 mls of normal saline and 500 units of heparin. Bandaid placed. Pt. Tolerated well./CW RN documented in this encounter Miscellaneous Notes * Miscellaneous - Provider, Scanning - 07/06/2012 8:09 PM EST * Miscellaneous - Provider, Scanning - 07/06/2012 12:53 PM EST documented in this encounter Plan of Treatment Upcoming Encounters Date Type Department Care Team (Late st Contact Info) Description 05/24/2025 11:00 AM EDT Office Visit Radiation Oncology at [address] [phone] Jesse Mcmahan MD [facility] [place] [address] (work) documented as of this encounter Procedures Procedure [...] MID-THIGH Technique Procedure: Following IV injection of 82-krhxyz-6-deoxyglucose (FDG) and a standard uptake period, a [...] you for referring this patient to the [facility] Film and interpretation reviewed by the attending Procedure Note Abhi Gao MD - 07/07/2012 Examination PET/CT SKULL BASE TO MID-THIGH Technique Procedure: Following IV injection of 50-btatbw-2-deoxyglucose (FDG) and a standard uptake period, a [...] you for referring this patient to the [facility] PET Center Film and interpretation reviewed by the attending Butch Catalan MD IMG PET ORDERABLES * POCT Glucose (07/06/2012 1:42 PM EST) Glucose, POC 103 60 - 199 mg/dL [facility] Comment: Supplemental ranges: <110 mg/dL before meals <200 mg/dL all other times of the day Blood specimen (specimen) 07/06/2012 1:42 PM EST 07/06/2012 1:42 PM EST Mamadou Connolly MD POINT OF CARE TEST O RDERABLES [facility] documented in this encounter Visit Diagnoses Diagnosis Cancer of base of tongue Malignant neoplasm of base of tongue Hypothyroidism Unspecified hypothyroidism documented in this encounter Active and Recently Administered Medications Care Teams Head Irrigator Relationship Specialty Start Date End Date Bj Alves MD [address] [place] [phone] PCP - General 06/25/10 04/02/23 documented as of this encounter
--- OUTSIDE RECORDS SUMMARY | 2024-08-01 15:29 | XMS_ITS | Encounter Summary ---
Author Organization [facility] [place] [address] Care Team Providers Care Pediatric Psychiatrist Name Role Phone Bj Alves MD Primary Care Provider [phone] Encounter Details Date Type Department Care Team (Latest Contact Info) Description 06/18/2012 Unscheduled Encounter Hematology Oncology at [address] [phone] Sabine Nash, MANJU [facility] [place] [address] Dietary surveillance and counseling (Primary Dx) Social History Tobacco Use Types [...] as of this encounter Progress Notes * Sbaine Nash, RD - 06/18/2012 1:53 PM EST Diagnosis: Intermediate grade squamous cell carcinoma [...] mo follow up. Assessment: Ht: 175.3 cm Wt: 89 kg on 06/18/12: stable 89 kg on 06/04/12: 3.3% DECREASE in one month; mild-moderate Previous Wts: 92 kg on 05/04/12: increase 92.3 kg [...] Initial Wt: 103 kg on 02/17/12 Kcal needs: 25-30 kcals at Adj BW: 2000 - 2500 Protein needs: @ 1.3 - 1.5 g/kg Adj: 108- 125 Fluid needs: 2500 - 3000 mls Labs: 04/06/12 labs: Glu 128, Alb 2.9 Meds: reviewed Food intake as compared to normal: ____Unchanged ___Increased __X__ Decreased P.O. Chx, pasta, vegetables, had an apple with skin today. Could tolerate 1/2 with skin and then had to peel it. G-Tube: Nocturnal pump, runs at 200 cc/10 hours. Flush with 100 cc of water before and after feeding. Runs 8 cans. Teas, vitamins, or other nutritional supplements: D3 Food allergies or avoidances: knfa Appetite: Does have one now during the day, 6 or Nausea: Compazine and zofran on board and takes when needed Vomiting: +, rare but has Chewing: denies Swallowing: Painful,02/09. Jocelin, fentynal patch on board. BMX on board, but says this doesn't reallynumb his throat, but it does numb everything else. Mouthsores:denies. Throat is raw Xerostomia: +, does soda/salt rinses throughout the day, uses Biotene. Purchased Theramouth, uses Ayrs gel for sleeping Taste Changes: +, dysguesia. Bowels: Going daily [...] tongue cancer as evidenced by decrease of 8.4 % weight loss in 6 weeks. Overall, Salvador has experienced ~ 13% unintentional weight loss through the course of his treatment. Salvador returns to clinic tojavier card for a followup and was seen in conjunction with Leslie Guzman APRN. She recommended taking ibuprofen to help manage lingering pain from food trials. He does c/o of shoulder pain, inability to focus, and lingering fatigue. His first MANAGER OF TRAINING appointment is on 06/21/12. He was also encouraged to get PT on board for shoulder motility/pain issues and also lymphedema that is settling in on his neck and jaw area. He has increased his p.o. Intake and can taste some foods. He continues with nocturnal TF of 8 cans. Original TF Recs: -- 8 cans Fibersource H/N via gravity bag to provide: 2400 kcals, 108 g pro, and 1624 mls free water/day. -- Pt instructed to flush tube with 60 mls before and after each feeding. Pt will need and add'l 313 to 813 mls of water/day (1.5 - 3.5 cups) taken p.o. Or via tube. -- The above recommendations meet 100% of pt's ACCOUNT EXECUTIVE's for kcal, vitamins, and minerals. -- Recommend administering 3 cans/time as mealsover a period of 1-2 hours, TID. -- PT will also need gravity bags and pole to administer formula. Nutrition Intervention: Increase caloric needs : Discussed Modify diet consistency: soft diet Increase frequency of meals and snacks : q 2-3 hours Need for supplements : BID Nutrition Goals: Weight maintenance and PBM preservation -- Continue consuming 8 cans Fibersource H/N during the night. -- Increase p.o. Educational Handouts provided: -- Protein needs and sources -- Dirty Dozen and Clean Fifteen F& V list -- High Dean/Pro milk shake recipes -- Power pudding recipe Other: Monitoring and Evaluation: Will follow up with Mr Nayan Wyatt in 2 weeks. Plan to decrease TF to 6 cans to appropriately stimulate his daytime p.o. Intake in hopes of initiating getting his gt pulled out. documented in this encounter Plan of Treatment Upcoming Encounters Date Type Department Care Team (Late st Contact Info) Description 05/24/2025 11:00 AM EDT Office Visit Radiation Oncology at [address] [phone] Jesse Mcmahan MD [facility] [place] [address] documented as of this encounter Visit Diagnoses Diagnosis Dietary surveillance and counseling- Primary documented in this encounter Care Teams Pediatric Psychiatrist Relationship Specialty Start Date End Date Bj Alves MD [address] [place] [phone] PCP - General 06/25/10 04/02/23 documented as of this encounter
--- OUTSIDE RECORDS SUMMARY | 2024-08-01 15:29 | XMS_ITS | Encounter Summary ---
Author Organization [facility] Address [facility] [place] [address] Care Team Providers Care Cut Out Machine Operator Name Role Phone Bj Alves MD Primary Care Provider [phone] Reason for Visit * Reason Onset Date Comments Other 06/21/2012 check on mouth s wab culture results Encounter Details Date Type Department Care Team (Late st Contact Info) Description 06/21/2012 Telephone Radiation Oncology at [address] [phone] Marcelina Edwards, RN Other (check on mouth swab culture results) Social History Tobacco Use Types Packs/Day Years [...] Telephone Encounter - Marcelina Rizvi RN - 06/21/2012 4:32 PM EST Radiation Oncology Nurse Phone Note CLEM Diaz called asking for the results of the mouth swab culture she did on 06/04. There are no reports in [facility]. She asked that I check [facility] for the results. There are none. I called the patient and he stated that he brought it to [facility] in [place], [place]. I called the [facility] lab and was told that it showed no fungal organism isolated. The report will be faxed to us. documented in this encounter Plan of Treatment Upcoming Encounters Date Type Department Care Team (Late st Contact Info) Description 05/24/2025 11:00 AM EDT Office Visit Radiation Oncology at [address] [phone] Jesse Mcmahan MD [facility] [place] [address] documented as of this encounter Visit Diagnoses Not on filedocumented in this encounter Care Teams Cut Out Machine Operator Relationship Specialty Start Date End Date Bj Alves MD [address] [place] [phone] PCP - General 06/25/10 04/02/23 documented as of this encounter
--- OUTSIDE RECORDS SUMMARY | 2024-08-01 15:29 | XMS_ITS | Encounter Summary ---
Author Organization [facility] [place] [address] Care Team Providers Care Retail Marketing Coordinator Name Role Phone Bj Alves MD Primary Care Provider [phone] Reason for Visit * Reason Comments Head And Neck Cancer Encounter Details Date Type Department Care Team (Late st Contact Info) Description 07/06/2012 4:00 PM EST Follow-Up [place] [phone] Butch Catalan MD [address] [place] [address] [place] [address] Cancer of base of tongue; Anxiety; Claustrophobia; Dysphagia, unspecified; GERD (gastroesophageal reflux disease); Hypothyroidism; Sleep apnea; Thalassemia minor Discharge Disposition: Home Social History [...] as of this encounter Progress Notes * Butch Catalan MD - 07/06/2012 4:24 PM EST Head and Neck Cancer Medical [...] Stagin12/09/11 CT H&N with contrast ([facility]): Mixed attenuation mass with lare low density areas suggesting necrotic change present deep to anterior aspect L SCM. Mass smoothly marginated, max 3.3 x 5.2 cm. 11/27/11 PET-CT ([facility]): Despite premedication, severe claustrophobia [...] base of tongue cancer. Interval History: Now 3 full months from completion of chemoradiation. Mouth/throat problems: xerostomia, aleksey at night; some pain with swallowing. Fluconazole helpful; finished 24 days' therapy today. Taste sensation returning, far from normal however. Occasional swallow-related cough, no major aspiration problems. Diet and nutrition problems: G-tube, 6 cans per day, via pump. It sounds like this doesn't help thesleep. Motivated to revert to PO, but post-prandial throat pain hinders this effort. Metastatic symptoms: None Functional status: fatigues very easily. Sleeps poorly, despite this, even when he pushes exertion during the day. Had been slated to restart work 07/16, but by history his exertion tolerance is not adequate for this. Interval medical problems: None new; CPAP machine not in use d/t neck edema and resulting chin strap mis-fit. New 'burning' parasthesias over L deltoid and supraspinatus regions; has been sleeping onthe couch. Posterior aspect of shoulder joint tender. 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 Rash on palms and soles since ~06/03; peeling but no itching or pain; only medication started then was fluconazole. Pain control: adequate, needs occasional oxycodone; off fentanyl. Hearing function intact. Outpatient Prescriptions Marked as Taking for the 07/06/12 encounter (Follow-Up) with Butch Catalan MD Medication Sig Dispense Refill ??? amlodipine-benazepril (LOTREL) 5-10 mg per capsule Take 2 capsules by mouth daily. ??? FLUoxetine (PROZAC) 10 mg capsule Take 1 capsule by mouth daily. Take with the 20mg tab so 30mgtotal. 30 capsule 12 ??? OXYcodone (ROXICODONE) 5 mg immediate release tablet Take 1 tablet by mouth every 4 hours as needed for Pain. 100 tablet 0 ??? LORazepam (ATIVAN) 1 mg tablet Take 2 tablets by mouth. Take prior to bed to assist with sleep.30 tablet 0 ??? SALIVA STIMULANT AGENTS COMB.3 (BIOTENE MOISTURIZING MOUTH MM) by Mucous Membrane route as needed. ??? FLUoxetine (PROZAC) 20 mg capsule Take by mouth daily. ??? metoprolol succinate (TOPROL-XL) [...] Review of systems is negative for other DENTAL TECHNICIAN METAL, bone, pulmonary, cardiac, GI, , extremity, neurologic, endocrine, skin, constitutional, emotional, or functional problems. Recent Review Flowsheet Data View Complete Flowsheet Oncology Vitals 07/06/2012 Pulse 73 Heart Rate Source Monitor Resp 16 BP 117/84 SpO2 98 Exam: General appearance: NAD, in good spirits Nutritional status: Down several Kg (vs NCCC/St J scales at least) Skin: Excellent in-field recovery; no residual cetux rash over h/n or torso Palms < soles: punctate palpable red spots with scaling on larger ones, up to 2 cm. No bleeding.No obvious psoriatic rash on extensors today. Oral: Scant palate and posterior phar wall [...] Cranial nerves: Normal Reflexes: 1 + Laryngoscopy: Done along with Dr. Mcmahan: tiny white cystic nodule R nasopharynx c/w blocked gland; minor mucosal edema; scant foci of mucositis L tongue base; no visible tumor. Cords mobile. Recent Results (from the past 72 hour(s)) COMPREHENSIVE METABOLIC PANEL (NON-FASTING) Component Value Range Glucose Lvl 107 60 - 199 (mg/dL) BUN 20 10 - 20 (mg/dL) Creatinine 1.13 0.80 - 1.50 (mg/dL) Sodium 139 135 - 145 (mmol/L) Potassium 4.3 3.5 - 5.0 (mmol/L) Chloride 101 98 - 107 (mmol/L) CO2 28 22 - 31 (mmol/L) Anion Gap 10 5 - 15 (mmol/L) Calcium 10.6 (*) 8.5 - 10.5 (mg/dL) Total Protein 8.0 6.4 - 8.3 (gm/dL) Albumin 4.5 3.2 - 5.2 (gm/dL) AST 18 0 - 39 (unit/L) ALT 18 0 - 55 (unit/L) Alk Phos 88 40 - 120 (unit/L) Total Bilirubin 0.6 0.2 - 1.3 (mg/dL) Bili, Direct 0.1 0.0 - 0.3 (mg/dL) Estimated GFR >60 >=60 CBC (WITH DIFF) Component Value Range WBC 10.2 (*) 4.0 - 10.0 (x10(3)/mcL) RBC 6.37 (*) 4.63 - 6.08 (x10(6)/mcL) Hemoglobin 13.3 (*) 13.7 - 17.5 (gm/dL) Hematocrit 41.4 40.0 - 51.0 (%) MCV 65.0 (*) 79.0 - 92.0 (fL) MCH 20.9 (*) 25.6 - 32.2 (pg) MCHC 32.1 32.0 - 36.5 (gm/dL) Platelets 209 145 - 370 (x10(3)/mcL) RDWSD 36.2 35.0 - 46.0 (fL) RDWCV 15.9 (*) 10.9 - 14.4 (%) MPV Not Measured 9.0 - 12.0 (fL) TSH Component Value Range TSH 0.14 (*) 0.27 - 4.20 (mcIU/mL) DIFFERENTIAL, AUTOMATED Component Value Range Neutrophils % 77.3 (*) 34.0 - 71.0 (%) Neutr Abs (ANC) 7.93 (*) 1.50 - 6.30 (x10(3)/mcL) Lymphocytes % 13.6 (*) 19.0 - 53.0 (%) Lymphocytes Abs 1.4 1.0 - 3.6 (x10(3)/mcL) Monocytes % 6.8 4.0 - 13.0 (%) Monocyte Abs 0.7 0.2 - 1.0 (x10(3)/mcL) Eosinophils % 1.4 0.0 - 7.0 (%) Eosinophils Abs 0.1 0.0 - 0.5 (x10(3)/mcL) Basophils % 0.5 0.0 - 2.0 (%) Basophils Abs 0.0 0.0 - 0.2 (x10(3)/mcL) Immature Gran % 0.40 0.00 - 0.66 (%) Anamika Gran Abs 0.04 0.00 - 0.05 (x10(3)/mcL) POCT GLUCOSE Component Value Range POC Glucose 103 60 - 199 (mg/dL) Radiographs: I personally reviewed today's PET/CT: I [...] to PO intake. Pain is limiting. 4. L deltoid region parasthesias: suspect C4-5 nerve root irritation from C- spine arthritis, exacerbated by position (?on RT table, ?during couch sleeping). Also suspect some focal shoulder arthritis. 5. Fatigue + poor sleep: multifactorial. Xerostomia contributing. Sleep apnea may be a big factor since mask mis-fit has halted use of CPAP machine. 6. Skin rash: unusual. Could be fluconazole by history, although this is not a common side effect. Cetuximab is more likely; irritation of the thick skin of palms, soles, paronychia is common with prolonged administration. Timing is not terribly consistent, however. 7. Suppressed TSH. 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 8. Borderline hypercalcemia. I wonder if this could be artifact of tube feedings. Plan: 1. Cut levothyroxine in half; recheck TSH next month 2. Taper feedings by 1 can/day on a weekly titration schedule. Celebrex for throat pain; oxycodone if severe. Discussed 'food as medicine' philosophy. Once he is G-tube independent X 2 weeks and maintaining weight, G-tube can be removed. 3. PT for shoulder; continue speech/swallowing therapy work. Refer to [facility] or local orthopedist if persists/worsens. MBS scheduled for next week. 4. Emmollient cream for feet/hands; to call if rash worsens. 5. New chin strap through [facility]. 6. Consider MLD if lymphedema gets worse. 7. Monitor Ca; check PTH if remains high. 8. May be better to wait until Aug 2012 to consider getting back to work. Butch Catalan MD, FACP polygraph operator Hematology/[place] [address] documented in this encounter Plan of Treatment Upcoming Encounters Date Type Department Care Team (Late st Contact Info) Description 05/24/2025 11:00 AM EDT Office Visit Radiation Oncology at [address] [phone] Jesse Mcmahan MD [facility] [place] [address] documented as of this encounter Visit Diagnoses Diagnosis Cancer of base of tongue Malignant neoplasm of base of tongue Anxiety Anxiety state, unspecified Claustrophobia Other isolated or specific phobias Dysphagia, unspecified(025.48) Dysphagia, unspecified GERD (gastroesophageal reflux disease) Esophageal reflux Hypothyroidism Unspecified hypothyroidism Sleep apnea Unspecified sleep apnea Thalassemia minor Other thalassemia documented in this encounter Care Teams Retail Marketing Coordinator Relationship Specialty Start Date End Date Bj Alves MD [address] [place] [phone] PCP - General 06/25/10 04/02/23 documented as of this encounter
--- OUTSIDE RECORDS SUMMARY | 2024-08-01 15:29 | XMS_ITS | Encounter Summary ---
Author [facility] [place] [address] Care Team Providers Care Graphite Pan Drier Tender Name Role Phone Bj Alves MD Primary Care Provider [phone] Encounter Details Date Type Department Care Team (Late st Contact Info) Description 05/04/2012 10:30 AM EDT Ancillary Appointment Hematology Oncology at [address] [phone] [address] [facility] [place] [address] Social History Tobacco Use Types Packs/Day Years [...] Progress Notes * Sabine Nash, MANJU - 05/04/2012 10:49 AM EDT [facility] Dietitian Follow Up Seen by: Gisele Nash MS, RD, LD Patient, Dx, and Tx: Pt had a rough weekend. 04/02/12 went to [facility] ED. Was not admitted, given IVF and ABX and sent home. Pt was admitted to [facility] on Thursday,04/10/12. He was discharged on , 04/14/12. 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 Patient has been enrolled on RTOG 1016 andrandomized to the radiation therapy plus Erbitux arm. Completed tx the week of04/08/12. Assessment: Ht: 175.3 cm Wt: 92 kg on 05/04/12: increase Previous Wts: 92.3 kg on 04/20/12: Increase 91.27 kg [...] Food intake as compared to normal: ____Unchanged _X___Increased ____ Decreased P.O. Limited. Squash, ice cream, and eggs. Able to drink anything and take meds p.o. G-Tube: Nocturnal pump, runs at 200 cc/10 hours. Flush with 100 cc of water before and after feeding Teas, vitamins, or other nutritional supplements: D3 [...] Taste Changes: +, dysguesia. Bowels: Going daily Food availability/purchasing, meal planning and preparation: He [...] loss through the course of his treatment. While inpatient, his weight continued to decrease. It was discovered that he was sporadically bolusing TF formula, which left him uncomfortable. He was started and then discharged on nocturnal pump feeds and has tolerated these beautifully and is finally meeting his TF goal. As this is the first time since initiating tub feeds, we will see how the weekend goes and reassess if Benecalorie needs to be added back to his routine. Now he is s/p 5 months out of treatment and steadily gaining weight and taking some foods p.o. We discussed reducing nocternal TF to 7 cans in hopes to stimulate appetite during the day time. Encouraged him to try this and if successful, we will decrease to 6 cans/night. Original TF Recs: -- 8 cans Fibersource [...] The above recommendations meet 100% of pt's GOVERNMENT GUARD's for kcal, vitamins, and minerals. -- Recommend [...] Nutrition Goals: Weight maintenance and PBM preservation Educational Handouts provided: -- Protein needs and sources -- Dirty Dozen and Clean Fifteen F& V list -- High Dean/Pro milk shake recipes -- Power pudding recipe Other: Orders will be faxed to [facility] for home supply delivery. Monitoring and Evaluation: Will follow up with Mr Nayan Wyatt in 2 weeks. documented in this encounter Plan of Treatment Upcoming Encounters Date Type Department Care Team (Late st Contact Info) Description 05/24/2025 11:00 AM EDT Office Visit Radiation Oncology at [address] [phone] Jesse Mcmahan MD [facility] [place] [address] documented as of this encounter Visit Diagnoses Not on filedocumented in this encounter Care Teams Graphite Pan Drier Tender Relationship Specialty Start Date End Date Bj Alves MD [address] [place] [phone] PCP - General 06/25/10 04/02/23 documented as of this encounter
--- OUTSIDE RECORDS SUMMARY | 2024-08-01 15:29 | XMS_ITS | Encounter Summary ---
Author Organization [facility] Javier [place] [address] Care Team Providers Care Civil Rights Attorney Name Role Phone Bj Alves MD Primary Care Provider [phone] Encounter Details Date Type Department Care Team (Late st Contact Info) Description 06/04/2012 3:00 PM EDT Ancillary Appointment Hematology Oncology at [address] [phone] Sabine Nash RD [facility] [place] [address] Social History Tobacco Use Types Packs/Day Years [...] of this encounter Progress Notes * Sabine Nash RD - 06/04/2012 4:03 PM EDT [facility] Dietitian Follow Up Seen by: Gisele Nash MS, RD, LD Patient, Dx, and Tx: Patient has been enrolled on RTOG 1016 and randomized to the radiation therapyplus Erbitux arm. Completed tx the week of04/08/12. He returns today for ~ 2 mo follow up. Assessment: Ht: 175.3 cm Wt: 89 kg on 06/04/12: 3.3% DECREASE in [...] to normal: ____Unchanged ___Increased __X__ Decreased P.O. Was experimenting with solids, but now anxious and fearful with swallowing pain. May have ricepudding. G-Tube: Nocturnal pump, runs at 200 cc/10 hours. Flush with 100 cc of water before and after feeding. Runs 7 cans. Teas, vitamins, or other nutritional supplements: [...] seen in conjunction with Leslie Guzman APRN. Salvador complains of difficulties remaining sleeping at night, anxiety, and difficulties swallowing p.o d/t pain on his tongue and in his throat, which he rates 5/10. He has decreased his nocturnal TF to 7 cans and has also decreased weight in the interim. He has just completed a 5-day round of fluconazole mouth wash for thrush. This did create some nausea for him. He is also eager to see MAINTENANCE LEADER. Original TF Recs: -- 8 cans Fibersource [...] The above recommendations meet 100% of pt's DATA COMPILER's for kcal, vitamins, and minerals. -- Recommend [...] Goals: Weight maintenance and PBM preservation -- Will touch base on 06/08 to assess how fentyl taper is going -- Recommend consuming an 8th can during the night. -- Increase p.o.; provided Unjury Cx soup samples Educational Handouts provided: -- Protein needs and [...] EDT Office Visit Radiation Oncology at [address] [phone] Jesse Mcmahan MD [facility] [place] [address] documented as of this encounter Visit Diagnoses Not on filedocumented in this encounter Care Teams Civil Rights Attorney Relationship Specialty Start Date End Date Bj Alves MD [address] [place] [phone] PCP - General 06/25/10 04/02/23 documented as of this encounter
--- OUTSIDE RECORDS SUMMARY | 2024-08-01 15:29 | XMS_ITS | Encounter Summary ---
Author Organization [facility] [place] [place] [address] Care Team Providers Care Pantry Attendant Name Role Phone Bj Alves MD Primary Care Provider [phone] Reason for Visit * Reason Comments Head And Neck Cancer Encounter Details Date Type Department Care Team (Late st Contact Info) Description 06/08/2012 11:30 AM EST Follow-Up Hematology Oncology at [address] [phone] Rakesh Underwood MD Head and neck cancer (Primary Dx); Thrush Discharge Disposition: Home Social History Tobacco Use [...] Sign Reading Time Taken Comments Blood Pressure 120/75 06/08/2012 11:20 AM EST Pulse 78 06/08/2012 11:20 AM EST Temperature 36.8 ??C (98.2 ??F) 06/08/2012 11:[address] Respiratory Rate 18 06/08/2012 11:20 AM EST Oxygen Saturation 100% 06/08/2012 11:20 AM EST Inhaled Oxygen Concentration - - Weight 90.5 kg (199 lb 8.3 oz) 06/08/2012 11:20 AM EST Height 175.3 cm (5' 9.02) 06/08/2012 11:[address] Body Mass Index 29.45 06/08/2012 11:20 AM EST documented in this encounter Progress Notes * Domingo Bates - 06/23/2012 10:47 AM EST * Flaquita Whitaker RN - 06/08/2012 3:52 PM ESTAddended by: FLAQUITA WHITAKER on: 06/08/2012 Modules accepted: Orders * Rakesh Underwood MD - 06/08/2012 12:17 PM EST Diagnosis: 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 Patient has been enrolled on RTOG 1016 andrandomized to the radiation therapy plus Erbitux arm. Subjective: Salvador comes in today for followup. He had today's appointment already schedule but he was just evaluated and multidisciplinary head and neck clinic at [facility] 4 days ago. They have arranged for some speech therapy to aid him in swallowing and have him tapering off his pain medications and also sedation. He is having sleep disturbance and is hopeful once he gets off his medications things will start to normalize. He does have a bit of a dry mouth. He notes discomfort when he swallows but overall things are slowly improving. His hope is to get back to work in about a month. Past medical history and social history are unchanged from when I saw him 4 weeks ago. Review of Systems Constitutional: Negative [...] or sinus tenderness Throat: Lips OK. He is unable to open his mouth [...] nodes normal Neurologic: Normal Lab today is excellent.CMP is completely normal with creatinine of 0.7 and normal liver tests. TSH is actually a little on the low side at less than 0.02. CBC shows a hemoglobin of 11.6 a hematocrit of 36.3 a low mean cell volume of 62 from his thalassemia trait and ANC of 5.79 and a white count of7.7 Assessment/Plan: Salvador is doing well at this point in time. He seems to have very appropriate followup arranged including speech therapy and further followup with the head and neck clinic. At this point in time I'll see him back on a when necessary basis which should prevent him from having double scheduling issues. He of course knows to call if any problems or issues develop in the interim. documented in this encounter Procedure Notes * Provider, Scanning - 07/16/2012 9:59 AM ESTAssociated Order(s): SCAN DOC: DIAGNOSTIC RADIOLOGY documented in this encounter Plan of Treatment Upcoming Encounters Date Type Department Care Team (Late st Contact Info) Description 05/24/2025 11:00 AM EDT Office Visit Radiation Oncology at [address] [phone] Jesse Mcmahan MD [facility] [place] [address] documented as of this encounter Procedures Procedure Name Priority Date/Time Associated Diagnosis Comments DIAGNOSTIC RADIOLOGY SCAN 07/16/2012 9:59 AM EST documented in this encounter Results * SCAN DOC: DIAGNOSTIC RADIOLOGY (07/16/2012 9:59 AM EST) Anatomical Region Laterality Modality Other Narrative Transcriptions Provider, Scanning - 07/16/2012 9:59 AM EST Scanning Provider MEDIA MGR SCAN EXT O RDR/RSLT documented in this encounter Visit Diagnoses Diagnosis Head and neck cancer- Primary Malignant neoplasm of head, face, and neck Thrush Candidiasis of mouth documented in this encounter Care Teams Pantry Attendant Relationship Specialty Start Date End Date Bj Alves MD [address] [place] [phone] PCP - General 06/25/10 04/02/23 documented as of this encounter
--- OUTSIDE RECORDS SUMMARY | 2024-08-01 15:29 | XMS_ITS | Encounter Summary ---
Author Organization [facility] [place] [address] Care Team Providers Care Bass Guitar Teacher Name Role Phone Bj Alves MD Primary Care Provider [phone] Encounter Details Date Type Department Care Team (Late st Contact Info) Description 06/22/2012 Telephone Hematology Oncology at [address] [phone] [facility] [place] [address] Social History Tobacco Use Types Packs/Day Years [...] Telephone Encounter - Sabine Nash RD - 06/22/2012 9:56 AM EST TC placed to pt to discuss results from his PLUMBING FOREMAN assessment/MBS at [facility] on 06/21/12. True to character Salvador was a bit vague. Stated he does have some limitations and pockets things. He did provide the PLUMBING FOREMAN information to me: Beckie Stoner. I called and LVMM with her to request she fax us her note on him. Will continue to follow. documented in this encounter Plan of Treatment Upcoming Encounters Date Type Department Care Team (Late st Contact Info) Description 05/24/2025 11:00 AM EDT Office Visit Radiation Oncology at [address] [phone] Jesse Mcmahan MD [facility] [place] [address] documented as of this encounter Visit Diagnoses Not on filedocumented in this encounter Care Teams Bass Guitar Teacher Relationship Specialty Start Date End Date Bj Alves MD [address] [place] [phone] PCP - General 06/25/10 04/02/23 documented as of this encounter
--- OUTSIDE RECORDS SUMMARY | 2024-08-01 15:29 | XMS_ITS | Encounter Summary ---
Author Organization [facility] Javier johnsonмар[place] [address] Care Team Providers Care Individual Pension Consultant Name Role Phone Bj Alves MD Primary Care Provider [phone] Encounter Details Date Type Department Care Team (Late st Contact Info) Description 06/25/2012 Telephone Hematology Oncology at [address] [phone] Sabine Nash, MANJU [facility] [place] [address] Social History Tobacco Use Types Packs/Day Years [...] Telephone Encounter - Sabine Nash, MANJU - 06/25/2012 10:24 AM EST TC placed to pt for dietitian follow up regarding 06/21/12 HOUSE PAINTING INSTRUCTOR encounter at [facility]. Spoke with Salvador. Reviewed HOUSE PAINTING INSTRUCTOR note with him. He stated he didn't recall the part of the conversation advising to [place] thickened liquids. I did reinforce that water was acceptable to consume as is. Mailed out samples of Thicken-up, Simply Thick, and Thick-it for pt to try when having broth-based soups, juices, or coffee. He is eager to start TF weaning process. A/P: -- GT weaning: Recommended pt decrease from 8 cans/night to 6 cans. -- Informed him to weight himself at home frequently to check for weight loss. Last recorded wt: 89kg/196 lbs on 06/18/12. -- Will call in one week to assess weight/tolerance. -- MBS scheduled at [facility] on 07/12/12. documented in this encounter Plan of Treatment Upcoming Encounters Date Type Department Care Team (Late st Contact Info) Description 05/24/2025 11:00 AM EDT Office Visit Radiation Oncology at [address] [phone] Jesse Mcmahan MD [facility] [place] [address] documented as of this encounter Visit Diagnoses Not on filedocumented in this encounter Care Teams Individual Pension Consultant Relationship Specialty Start Date End Date Bj Alves MD [address] [place] [phone] PCP - General 06/25/10 04/02/23 documented as of this encounter
--- OUTSIDE RECORDS SUMMARY | 2024-08-01 15:29 | XMS_ITS | Encounter Summary ---
Author Organization [facility] [place] [address] Care Team Providers Care Baseball Glove Shaper Name Role Phone Bj Alves MD Primary Care Provider [phone] Encounter Details Date Type Department Care Team (Late st Contact Info) Description 07/02/2012 11:30 AM EST Ancillary Appointment Hematology Oncology at [address] [phone] Sabine Nash, MANJU [facility] [place] [address] Social History Tobacco Use Types Packs/Day Years [...] this encounter Progress Notes * Sabine Nash, RD - 07/02/2012 4:03 PM EST Briefly touched base with pt while he was in the waiting room today. He increased his TF back to 7 cans d/t not being able to eat/swallow much. Feels as if he has picked up a stomach bug. He states he can eat p.o., but still experiences pain after, he puts this at 7/10 scale. However, he states this pain doesn't occur all the time, but enough to be annoying. Wt: ?, he states his scale broke, but doesn't feel as if he's lost any weight. He does state he has been doing swallow exercises. Fentynal patch taper was completed on 06/28/12. Bowels are regular. Also still gets some nausea, but doesn't take anything for it. Claims eating something will make it dissipate. Intake: Able to eat toast, chx, pasta, soups, and rwandan yogurt Today: ate 2 pieces toast (no crust) with jam and butter and water A/P: Salvador continues to be vague with information. He was concerned with keeping his PET appointment for 07/06/12 d/t issues with throat pain. Consulted Dr. Mcmahan and he (Martir) felt with his ability to eat toast, the PET should go on. We discussed removing the 7th can - again from his nightly feeds. Reviewed food items that he couldtolerate that would replace the missing 600 kcals from his intake and help to stabilize weight. He verbally agreed to this and appeared to fully comprehend. Encouraged him to purchase a new scale to help monitor weight as he claims he is very eager to weanfrom TF. Will call next week to assess and hopefully continue TF weaning to 4 cans. Salvador is aware of this. documented in this encounter Plan of Treatment Upcoming Encounters Date Type Department Care Team (Late st Contact Info) Description 05/24/2025 11:00 AM EDT Office Visit Radiation Oncology at [address] [phone] Jesse Mcmahan MD [facility] [place] [address] documented as of this encounter Visit Diagnoses Not on filedocumented in this encounter Care Teams Baseball Glove Shaper Relationship Specialty Start Date End Date Bj Alves MD [address] [place] [phone] PCP - General 06/25/10 04/02/23 documented as of this encounter
--- OUTSIDE RECORDS SUMMARY | 2024-08-01 15:29 | XMS_ITS | Encounter Summary ---
Author Organization [facility] Javier [place] [address] Care Team Providers Care Medical Records Coder Name Role Phone Bj Alves MD Primary Care Provider [phone] Encounter Details Date Type Department Care Team (Late st Contact Info) Description 08/10/2012 Telephone Hematology Oncology at [address] [phone] Sabine Nash, MANJU [facility] [place] [address] Social History Tobacco Use Types Packs/Day Years [...] Telephone Encounter - Sabine Nash RD - 08/10/2012 11:10 AM EST TC call to pt for dietitian follow up assessment. Spoke with Salvador. He went to STEAM PLANT OPERATOR yesterday at [facility]. STEAM PLANT OPERATOR referred him to ENT for scoping. Liquids cannow be nectar thick. He also tried fruit, australian yogurt with fruit, and a small muffin. He was able to swallow all these, but did have pain getting it down and residual pain. Last recorded wt: 194 lbs on home scale on 08/10/12 Previous Wt: 87.998 kg on 08/06/12 Appetite: Good TF: Three cans Fibersource HN/d, running nocturnally via pump. This provides: 900 kcal, 40.5 g pro and 609 mls of free water. His current intake plus p.o provides ~ 1900 kcals and 80 g pro. He continues to eat calorically dense and protein -rich foods. A/P: We will continue with 3 cans as he is waiting to get a ENT appointment to be scoped. Provided suggestions for nectar-thick liquids. Pt did state he has plenty of thickener samples. Weight is stable. Will continue to follow weekly for STEAM PLANT OPERATOR updates, weight status, and TF weaning. documented in this encounter Plan of Treatment Upcoming Encounters Date Type Department Care Team (Late st Contact Info) Description 05/24/2025 11:00 AM EDT Office Visit Radiation Oncology at [address] [phone] Jesse Mcmahan MD [facility] [place] [address] documented as of this encounter Visit Diagnoses Not on filedocumented in this encounter Care Teams Medical Records Coder Relationship Specialty Start Date End Date Bj Alves MD [address] [place] [phone] PCP - General 06/25/10 04/02/23 documented as of this encounter
--- OUTSIDE RECORDS SUMMARY | 2024-08-01 15:29 | XMS_ITS | Encounter Summary ---
Author Organization [facility] [place] [address] Care Team Providers Care Damage Inside Adjuster Name Role Phone Bj Alves MD Primary Care Provider [phone] Reason for Visit * Reason Comments Follow-up Encounter Details Date Type Department Care Team (Late st Contact Info) Description 10/18/2012 3:00 PM EDT [place] [address] Rio Gann MD [facility] [place] [address] Cancer of base of tongue (Primary Dx) [...] Sign Reading Time Taken Comments Blood Pressure 116/70 10/18/2012 3:08 PM EDT Pulse 70 10/18/2012 3:08 PM EDT Temperature - - Respiratory Rate - - Oxygen Saturation - - Inhaled Oxygen Concentration - - Weight 90.7 kg (200 lb) 10/18/2012 3:08 PM EDT Height 182.9 cm (6') 10/18/2012 3:08 PM EDT Body Mass Index 27.12 10/18/2012 3:08 PM EDT documented in this encounter Progress Notes * Rio Gann MD - 10/18/2012 3:32 PM EDT [facility] Follow up note Sebastian Wyatt is a 57 y.o. male seen in follow-up for head and neck review. Primary: Left base of tongue Stage: [id number] Treatments: Enrolled on RTOG 1016, randomized to cetuximab arm. Received 70 Gy completed 04/06/12 New issues since last visit: Slow but steady recovery. Taste and saliva are slowly improving. Stilldealing with a thrush infection. PROBLEM LIST: Patient Active Problem List Diagnoses [...] ??? 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 DIFFICULT AIRWAY 000245 ??? Dysphagia, unspecified 787.20 PAST MEDICAL HISTORY: [...] to Visit Medication Sig Dispense Refill ??? GLYCERIN (OASIS MOISTURIZING MOUTH MM) by Mucous Membrane route as needed. ??? OXYcodone (ROXICODONE) 5 mg [...] Take 137 mcg by mouth daily. ??? acetaminophen (TYLENOL) 160 mg/5 mL liquid Take 15 mg/kg/dose by mouth every 4 hours as needed. ??? ascorbic acid (VITAMIN C) 500 mg tablet Take 500 mg by mouth daily. ALLERGIES: No Known Allergies ROS: Pertinent positive findings discussed above. No other findings on review of constitutional visual, cardiovascular, respiratory, gastrointestinal, genitourinary, musculoskeletal, dermatologic, neurological, psychiatric, endocrine, hematologic or immunologic systems. PHYSICAL EXAMINATION: Filed Vitals: 10/18/12 1508 BP: 116/70 Pulse: 70 Wt Readings from Last 3 Encounters: 10/18/12 90.719 kg (200 lb) 09/24/12 89.812 kg (198 lb) 09/10/12 89.812 kg (198 lb) General: Well developed, no distress Head/face: Normocephalic, [...] complications. Nasal Cavity: Normal Nasopharynx: Normal Oropharynx: Tongue base is normal without evidence of recurrence Larynx: Normal with normal post radiation changes Hypopharynx: Normal ASSESSMENT/RECOMMENDATIONS: MARCO RTC per grid I appreciate the opportunity to be involved in Mr. Wyatt's care. Please do not hesitate to contact me at , (office), (page bleaching machine operator) or [phone] (mobile) if you have any questions. RIO GANN MD 10/18/2012 documented in this encounter Plan of Treatment Upcoming Encounters Date Type Department Care Team (Late st Contact Info) Description 05/24/2025 11:00 AM EDT Office Visit Radiation Oncology at [address] [phone] Jesse Mcmahan MD [facility] [place] [address] documented as of this encounter Visit Diagnoses Diagnosis Cancer of base of tongue- Primary Malignant neoplasm of base of tongue documented in this encounter Care Teams Damage Inside Adjuster Relationship Specialty Start Date End Date Bj Alves MD [address] [place] [phone] PCP - General 06/25/10 04/02/23 documented as of this encounter
--- OUTSIDE RECORDS SUMMARY | 2024-08-01 15:29 | XMS_ITS | Encounter Summary ---
Author Organization [facility] [place] [address] Care Team Providers Care Infusion Pharmacist Name Role Phone Bj Alves MD Primary Care Provider [phone] Reason for Visit * Reason Onset Date Comments Medical Care Coordination 07/21/2012 speech recommendation for po intake Encounter Details Date Type Department Care Team (Late st Contact Info) Description 07/21/2012 Telephone Hematology and Oncology at [facility] [place] [address] Iman Craig Medical Care Coordination (speech recommendation for po intake) Social History Tobacco Use Types Packs/Day Years [...] encounter Miscellaneous Notes * Telephone Encounter - Iman Craig RN - 07/21/2012 1:08 PM EST Message received via Spongecell basket: Sabine Nash RD Sent: ThuJuly 16, 2012 1:08 PM Message Small set back with MBS/AGITATOR OPERATOR. See Scan Docs 07/14/12. In short: honey-thick liquids, pudding thick, chunk free solids. He is still on 6 cans/d TF. Eating 4 oz yogurt BID. Working with him for other alternatives, suggested baby food. Weight? Has no scale. Coughed up what he presumed to be a blood clot Weds am. He felt this may've been due to his CPAP and having a humidifier in the room ? He returns to AGITATOR OPERATOR on Thursday. Will follow up with him on . Above noted. Triage will forward note to providers on pt's behalf. documented in this encounter Plan of Treatment Upcoming Encounters Date Type Department Care Team (Late st Contact Info) Description 05/24/2025 11:00 AM EDT Office Visit Radiation Oncology at [address] [phone] [facility] [place] [address] documented as of this encounter Visit Diagnoses Not on filedocumented in this encounter Care Teams Infusion Pharmacist Relationship Specialty Start Date End Date Bj Alves MD [address] [place] [phone] PCP - General 06/25/10 04/02/23 documented as of this encounter
--- OUTSIDE RECORDS SUMMARY | 2024-08-01 15:29 | XMS_ITS | Encounter Summary ---
Author Organization [facility] [place] [address] Care Team Providers Care Sausage Stuffer Name Role Phone Bj Alves MD Primary Care Provider [phone] Encounter Details Date Type Department Care Team (Late st Contact Info) Description 08/24/2012 Telephone Hematology Oncology at [address] [phone] Sabine Nash, MANJU [facility] [place] [address] Social History Tobacco Use Types Packs/Day Years [...] Telephone Encounter - Sabine Nash, MANJU - 08/24/2012 8:47 AM EST Tc to pt for nutrition follow up. Throat is still very sore. Scheduled to see Dr. Mcmahan on 08/26. Taking 10 mg oxycodone at night, on most nights, but not every night. [facility] PE[facility]LESO[facility] BUSINESS ANALYST would like him to get scoped. He is scheduled to see ENT at [facility] on 08/20. PEOPLES[employer] BUSINESS ANALYST has noted improvements. Intake: soft crust pizza, toast, spaghetti, and meatballs. Avoids leafy greens. B: scrambled eggs with cheese L: pumpkin soup with gouda and newton D: Pasta with sausage and 2 glasses of milk shake ( lao yogurt, IC, berries/banana) TF: nocturnally, 3 cans [...] EDT Office Visit Radiation Oncology at [address] [phone] Jesse Mcmahan MD [facility] [place] [address] documented as of this encounter Visit Diagnoses Not on filedocumented in this encounter Care Teams Sausage Stuffer Relationship Specialty Start Date End Date Bj Alves MD [address] [place] [phone] PCP - General 06/25/10 04/02/23 documented as of this encounter
--- OUTSIDE RECORDS SUMMARY | 2024-08-01 15:29 | XMS_ITS | Encounter Summary ---
Author Organization [facility] [place] [address] Care Team Providers Care Bail Bond Agent Name Role Phone Bj Alves MD Primary Care Provider [phone] Encounter Details Date Type Department Care Team (Late Contact Info) Description 06/21/2012 Orders Only Hematology [place] [address] Butch Catalan MD [address] [place] [address] [place] [address] Head and neck cancer (Primary Dx) Social [...] EDT Office Visit Radiation Oncology at [address] [phone] Jesse Mcmahan MD [facility] [place] [address] documented as of this encounter Visit Diagnoses Diagnosis Head and neck cancer- Primary Malignant neoplasm of head, face, and neck documented in this encounter Care Teams Bail Bond Agent Relationship Specialty Start Date End Date Bj Alves MD [address] [place] [phone] PCP - General 06/25/10 04/02/23 documented as of this encounter
--- OUTSIDE RECORDS SUMMARY | 2024-08-01 15:29 | XMS_ITS | Encounter Summary ---
Author Organization [facility] [place] [address] Care Team Providers Care Director Internal Control Name Role Phone Bj Alves MD Primary Care Provider [phone] Encounter Details Date Type Department Care Team (Late st Contact Info) Description 05/25/2012 Telephone Hematology Oncology at [address] [phone] [facility] [place] [address] Social History Tobacco Use Types Packs/Day Years [...] Telephone Encounter - Sabine Nash RD - 05/25/2012 8:36 AM EDT TC call to pt for dietitian follow up assessment. Spoke with Salvador. States healing is going slowly, throat is taking a while to heal. Eating a lot ofsoup. Maple syrup and eggs taste off. But feels the back of his throat will get raw with P.O. Trials and feels like he gets things caught back in his throat. Last recorded wt: 202.8 lbs on 05/06/12; feels this is stable. Appetite: He feels hungry. Eating a lot of chx-broth based soups, mac and cheese Can't stand the taste of beef. The texture of solid foods is rough on his throat. This frustrates him greatly. Intake: GT: Running 6-7 cans at night, flushing tube with 60 mls before and after feeding. Hydrating via GT with 400 mls, BID or once/day. Supplements: N/V: +, continues to take zofran and compazine. Emesis occurred on Thursday, hadn't taken any antinausea meds. Attributes to over activity Chewing/Swallowing: Throat is very sensitive and still healing. Taste Changes: dysguesia Bowels: Regular Activity/Fatigue: Continues to be easily fatigued. Pain level is still high, 03/12. Continues w/ fentynal, then takes oxycodone as needed. Feels he takes this less often then before. Has increased activity in the past 2 weeks with short walks. More medication for thrush via his PCP A/P: Salvador is a bit down-hearted that things aren't moving faster with recovery. Assured him that his final treatments were rough and he will take longer to recover because of this. We also discussed the benefits of him possible seeing some one from [employer]. He was very excited about this prospect. Will see follow up with Salvador when he returns to [facility] on 06/08/12. documented in this encounter Plan of Treatment Upcoming Encounters Date Type Department Care Team (Late Contact Info) Description 05/24/2025 11:00 AM EDT Office Visit Radiation Oncology at [address] [phone] Jesse Mcmahan MD [facility] RADIATION ONCOLOGY [facility] [place] [address] documented as of this encounter Visit Diagnoses Not on filedocumented in this encounter Care Teams Director Internal Control Relationship Specialty Start Date End Date Bj Alves MD [address] [place] [phone] PCP - General 11/23/10 8/31/23 documented as of this encounter
--- OUTSIDE RECORDS SUMMARY | 2024-08-01 15:29 | XMS_ITS | Encounter Summary ---
Author Organization [facility] Javier [address]ohnson[address] [place] [address] Care Team Providers Care Business Objects Report Developer Name Role Phone Bj Alves MD Primary Care Provider [phone] Encounter Details Date Type Department Care Team (Late st Contact Info) Description 09/10/2012 10:30 AM EST Ancillary Appointment Hematology Oncology at [address] [phone] Sabine Nash, MANJU [facility] [place] [address] Social History Tobacco Use Types Packs/Day Years [...] Progress Notes * Sabine Nash, MANJU - 09/10/2012 9:54 AM EST Diagnosis: Intermediate grade squamous cell [...] therapyplus Erbitux arm. Completed tx the week of 04/08/12. He returns (09/10/12) today to have g-tube pulled. Assessment: Ht: 175.3 cm Wt: 89.8 kg on 09/10/12: increase Previous Wts:88 kg on 08/06/11; 89 kg on 06/18/12: stable 89 kg [...] to normal: ____Unchanged __X_Increased ____ Decreased P.O. Eating white bread or blend, and margie tortilla warps, jacob lettuce, broccoli, brussels sprouts. Rice gives problems; other than that not having any intake issues. Meat: hamburger, chx, fish, and pork, braised meats can be too stringy. Spaghetti sauce is tolerable. Maple syrup and coffee doesn't taste normal for him. Hasn't tasted ETOH. G-Tube: Hasn't sued in 2-3 weeks. Did continue to flush daily. Teas, vitamins, or other nutritional supplements: D3, Food allergies or avoidances: knfa Appetite: Does have one now during the day, Nausea: denies Vomiting: denies Chewing: denies Swallowing: Painful02/09. Takes 5 mg of roxicodone when needed at night, maybe 2- 3 nights/week. Xerostomia: +, does soda/salt rinses throughout the day, uses [place] and Biotene. Taste Changes: +, hypoguesia. Bowels: Going daily Activity: Continues to do daily chores, feeds horses, etc....Getting out more and walking. Food availability/purchasing, meal planning and preparation: He does this, doesn't cook very well and he prefers her to come into the kitchen. Depression: n/a, affect continues to be very optimistic and upbeat Social Support: States it is wonderful. and dtr (10 YO) very supportive. 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 He continues to see GAMBRELER at [facility] once/week. Not limited with p.o. Activity and stamina are increasing. Encouraged him for PT for lymphedema. Started salagen for xerostomia. Nutrition Intervention: Increase caloric needs : Discussed [...] Will follow up with Mr Nayan Wyatt her H& N schema. documented in this encounter Plan of Treatment Upcoming Encounters Date Type Department Care Team (Late st Contact Info) Description 05/24/2025 11:00 AM EDT Office Visit Radiation Oncology at [address] [phone] Jesse Mcmahan MD [facility] [place] [address] documented as of this encounter Visit Diagnoses Not on filedocumented in this encounter Care Teams Business Objects Report Developer Relationship Specialty Start Date End Date Bj Alves MD [address] [place] [phone] PCP - General 06/25/10 04/02/23 documented as of this encounter
--- OUTSIDE RECORDS SUMMARY | 2024-08-01 15:29 | XMS_ITS | Encounter Summary ---
Author Organization [facility] [place] [address] Care Team Providers Care Contact Acid Plant Operator Helper Name Role Phone Bj Alves MD Primary Care Provider [phone] Reason for Visit * Reason Onset Date Comments Other 05/12/2012 Cancelling appoi ntment/Symptom Update Encounter Details Date Type Department Care Team (Late st Contact Info) Description 05/12/2012 Telephone Radiation Oncology at [address] [phone] Jesse Mcmahan MD [facility] [place] [address] Other (Cancelling appointment/Symptom Update) Social History Tobacco Use Types Packs/Day Years [...] encounter Miscellaneous Notes * Telephone Encounter - Bianka Wheat - 05/12/2012 11:42 AM EDT Salvador called stating that he just saw his PCP today in follow-up, and has thrush yet again. PCP prescribed Fluconazole 100mg tablets for him as well as some mouthwash. Salvador wasn't sure the name ofmouthwash. Salvador states this is the same stuff Dr. Underwood had prescribed for me last time. Salvador said because he had this appointment today and is having some difficulty with transportation he will not be able to come to his appointment tomorrow with Shannan. I told him that I would relay the message and if anything else needed to be done someone would givehim a call back at home. I will call PCPs office and obtain note from today and have scanned into eDH. documented in this encounter Plan of Treatment Upcoming Encounters Date Type Department Care Team (Late st Contact Info) Description 05/24/2025 11:00 AM EDT Office Visit Radiation Oncology at [address] [phone] Jesse Mcmahan MD [facility] [place] [address] documented as of this encounter Visit Diagnoses Not on filedocumented in this encounter Care Teams Contact Acid Plant Operator Helper Relationship Specialty Start Date End Date Bj Alves MD [address] [place] [phone] PCP - General 06/25/10 04/02/23 documented as of this encounter
--- OUTSIDE RECORDS SUMMARY | 2024-08-01 15:29 | XMS_ITS | Encounter Summary ---
Author Organization [facility] [place] [address] Care Team Providers Care Director Enterprise Data Architecture Name Role Phone Bj Alves MD Primary Care Provider [phone] Encounter Details Date Type Department Care Team (Late Contact Info) Description 06/01/2012 Orders Only [place]ology [place] [address] Leslie Guzman APRN Head and neck cancer Social History [...] EDT Office Visit Radiation Oncology at [address] [phone] Jesse Mcmahan MD [facility] [place] [address] documented as of this encounter Visit Diagnoses Diagnosis Head and neck cancer Malignant neoplasm of head, face, and neck documented in this encounter Care Teams Director Enterprise Data Architecture Relationship Specialty Start Date End Date Bj Alves MD [address] [place] [phone] PCP - General 06/25/10 04/02/23 documented as of this encounter
--- OUTSIDE RECORDS SUMMARY | 2024-08-01 15:29 | XMS_ITS | Encounter Summary ---
Author Organization [facility] [place] [address] Care Team Providers Care Singing Teacher Name Role Phone Ash Hernandez MD Primary Care Provider [phone] Reason for Visit * Reason Comments Radiation Follow-up Encounter Details Date Type Department Care Team (Late st Contact Info) Description 11/19/2012 2:00 PM EDT Follow-Up Radiation Oncology at [address] [phone] Jesse Mcmahan MD [facility] [place] [address] DIFFICULT AIRWAY (Primary Dx); Cancer of base of tongue Discharge Disposition: [...] Reading Time Taken Comments Blood Pressure 117/84 11/19/2012 1:44 PM EDT Pulse 69 11/19/2012 1:44 PM EDT Temperature 36.6 ??C (97.9 ??F) 11/19/2012 1:44 PM ED T Respiratory Rate 16 11/19/2012 1:44 PM EDT Oxygen Saturation 98% 11/19/2012 1:44 PM EDT Inhaled Oxygen Concentration - - Weight 91.2 kg (201 lb) 11/19/2012 1:44 PM EDT Height - - Body Mass Index 27.26 10/18/2012 3:08 PM EDT documented in this encounter Progress Notes * Jesse Mcmahan MD - 11/19/2012 2:32 PM EDT Radiation Oncology Follow Up Note [...] Staging: ?? 12/09/11 CT H&N with contrast ([facility]): Mixed attenuation mass with lare low density areas suggesting necrotic change present deep to anterior aspect L SCM. Mass smoothly marginated, max 3.3 x 5.2 cm. ?? 11/27/11 [place] [place] Despite premedication, severe claustrophobia allowed this can [...] ??? 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 DIFFICULT AIRWAY [id number] ??? Dysphagia, unspecified 787.20 Interval History: Sebastian Wyatt returns for routine follow up having completed radiotherapy approximately 7 months prior. Diagnosed with psoriatic arthritis by Cardiology Rn recently, now on MTX and prednisone. Currently he notes the following symptoms: Symptom Description Ongoing Intervention Dysphagia No choking or coughing unless eating large volumes quickly Not seeing INSULATION MECHANIC at this time. Odynophagia Chronic pain associated with eating, often intense, using minimal pain medication as hedoes not feel that it is necessary Oxycodone prn Trismus Improving, doing exercises. PT exercises Weight Loss 185 => 198 lbs Diet Modifications Eating most foods, limited by pain. Neck Symptoms L shoulder pain, no change. Chronic at some level, intermittent flares. Dental Issues Some tenderness when flossing, using [...] arthritis. MTX, prednisone He continues to have difficulty with fatigue, insomnia. Fatigue is often profound, unable to stay awake in the afternoons. No Known Allergies Current Outpatient Prescriptions on File Prior to Visit Medication Sig Dispense Refill ??? methotrexate 2.5 mg tablet Take by mouth once a week. Can take without regard to food. Call clinic before/prior to starting medication/script. ??? GLYCERIN (OASIS MOISTURIZING MOUTH MM) by [...] Take 137 mcg by mouth daily. ??? celecoxib (CELEBREX) 200 mg capsule Take 200 mg by mouth daily. ??? acetaminophen (TYLENOL) 160 mg/5 mL liquid Take 15 mg/kg/dose by mouth every 4 hours as needed. Past Medical History Diagnosis Date ??? Acid reflux ??? Thyroid dysfunction ??? Arthritis ??? Psoriasis Past Surgical History Procedure Date ??? Carpal tunnel release rt ??? Laryngoscopy, dirct, op scope, biopsy 12/12/2011 LARYNGOSCOPY, MICROSCOPE, WITH BIOPSY performed by BECKY GANN at [facility] OR ??? Laryngoscopy, dirct, op scop, exc tumr 12/12/2011 LARYNGOSCOPY, DIRECT, EXCISION OF TUMOR, CORD STRIPPING, MICRO performed by BECKY GANN at [facility] OR ??? Scan doc: pet scan 01/16/2012 PET SCAN performed by RODOLFO, ANESTHESIASHON at [facility] ??? Scan doc: pet scan 07/06/2012 PET SCAN performed by Anesthesia-Iris Borden at [facility] Physical Examination: Filed Vitals: 11/19/12 1344 BP: 117/84 Pulse: 69 Temp: 36.6 ??C (97.9 ??F) TempSrc: Oral Resp: 16 Weight: 91.173 kg (201 lb) SpO2: 98% Physical Exam Constitutional: He [...] There was was edema of the supraglottic larynx.base of tongue. Interval Imaging: No interval imaging Assessment: Sebastian Wyatt is now ~ 7 months out from definitive RT + cetuximab on RTOG 1016: ?? Squamous cell carcinoma of the BOT ?? Clinically: clinically he has MARCO. ?? Radiographically: no interval imaging ?? Radiation toxicity: ?? Xerostomia: Moderate, using water/biotene to assist ?? Dysphagia: denies significant dysphagia. Tolerating most foods, primary limitation is pain. ?? Pain: associated with swallowing, using pain medication to some effect but limiting primarily b/c of personal preference. Unclear etiology but may be neuropathic in origin. We discussed initiationof neurontin to see if his sx are improved, and he was in agreement. ?? Fibrosis/Edema: minimal. He does have some ongoing L neck pain of unclear etiology. Unlikely to be biological sequela of RT, but possibly represents mechanical issue secondary to osteoarthritis orold injury. ?? Fatigue: Improved, but still significant. ?? Thyroiditis: TSH to be re-evaluated at next visit. ?? Arthritis: psoriatic arthritis, now managed by Rheumatology. Recently started on MTX and prednison Plan: ?? FU: follow up with radiation oncology per [facility]CC algorithm ?? Pain: Neurontin 100 mg TID escalating to 300 mg TID over three weeks. documented in this encounter Plan of Treatment Upcoming Encounters Date Type Department Care Team (Late st Contact Info) Description 05/24/2025 11:00 AM EDT Office Visit Radiation Oncology at [address] [phone] Jesse Mcmahan MD [facility] [place] [address] documented as of this encounter Visit Diagnoses Diagnosis DIFFICULT AIRWAY- Primary Cancer of base of tongue Malignant neoplasm of base of tongue documented in this encounter Care Teams Singing Teacher Relationship Specialty Start Date End Date Ash Hernandez MD [address] [place] [phone] PCP - General 06/25/10 04/02/23 documented as of this encounter
--- OUTSIDE RECORDS SUMMARY | 2024-08-01 15:29 | XMS_ITS | Encounter Summary ---
[place] [address] Care Team Providers Care Shop Foreman Name Role Phone Bj Alves MD Primary Care Provider [phone] Encounter Details Date Type Department Care Team (Late st Contact Info) Description 07/06/2012 2:45 PM [place] [address] Mamadou Connolly MD [facility] [place] [address] Bj Cano CRNA [facility] DR AN[place]HESIOLOGY [place] [address] Anesthesia Record Procedure Summary Procedure Name Responsible Anesthesiologist Anesthesia Start Time Anesthesia Stop Time PET SCAN Mamadou Connolly MD 07/06/12 1445 1545 Events Date Time Event Comment 07/06/2012 1217 1445 Start 1545 Stop Meds * Agents No agents on file. * Blood No blood administrations on file. Lines, Drains, and Airways Type Details Placement Removal (RETIRED) Port A Cath 01/09/12; Chest 01/09/12 0 000 by Zaira Sheikh APRN (RETIRED) Power Port 01/09/12; 1035; Chest; Right; 8F LP Dign[address] CT Port lot# [id number] 01/09/12 1035 by Marion Huerta RN Incision 12/12/11; other (see comments) (oropharynx - biopsies); 03/31/22 (LDA cleanup utility RA#[id number]); 1715 ([facility] cleanup utility RA#[id number]) 12/12/11 0000 by Tara Cabrera RN 03/31/22 1715 by Sathish Burkett documented [...] OR Notes * Anesthesia Postprocedure Evaluation - Mamadou Connolly MD - 07/08/2012 7:59 AM EST Patient: Sebastian Wyatt Procedure(s) Performed: Procedure(s): PET SCAN Patient location: PACU Post-op pain: Adequate analgesia Post-op nausea: no nausea or vomiting Last Vitals: Filed Vitals: 07/06/12 1600 BP: 117/84 Pulse: 73 Temp: Resp: 16 Post-op cardiovascular and respiratory status: is stable Level of consciousness: awake Complications: no apparent complications Fluid Status: normal * Anesthesia Preprocedure Evaluation - Mamadou Connolly MD - 07/06/2012 12:16 PM EST Today I evaluated Sebastian Wyatt a 57 y.o. male. Procedure(s): PET SCAN Patient Active Problem List Diagnoses ??? Dysphagia, unspecified ??? DIFFICULT AIRWAY ??? [...] Stagin12/09/11 CT H&N with contrast ([facility]): Mixed attenuation mass with lare low density areas suggesting necrotic change present deep to anterior aspect L SCM. Mass smoothly marginated, max 3.3 x 5.2 cm. 11/27/11 PET-CT ([facility] [place] Despite premedication, severe [...] Received 70 Gy completed 04/06/12 Past Medical History Diagnosis Date ??? Acid reflux ??? Thyroid dysfunction ??? Arthritis ??? Psoriasis Past Surgical History Procedure Date ??? Carpal tunnel release rt ??? Laryngoscopy, dirct, op scope, biopsy 12/12/2011 LARYNGOSCOPY, MICROSCOPE, WITH BIOPSY performed by BECKY GANN at [facility] OR ??? Laryngoscopy, dirct, op scop, exc tumr 12/12/2011 LARYNGOSCOPY, DIRECT, EXCISION OF TUMOR, CORD STRIPPING, MICRO performed by BECKY GANN at [facility] OR ??? Scan doc: pet scan 01/16/2012 PET SCAN performed by RESOURCE, ANESTHESIA-HUMERA at [facility] H[facility]ER[facility] History Substance Use Topics ??? Smoking status: Former Smoker -- 1.0 packs/day for 38 years Quit date: 08/06/2011 ??? Smokeless tobacco: Never Used ??? Alcohol Use: 0.6 oz/week 1 Glasses of wine per week rarely one glass of wine occasionally No Known Allergies Medications: MAR and/or home medications have been reviewed. Physical Exam: There were no vitals filed for this visit. There is no height or weight on file to calculate BMI. Airway Assessment: Mallampati: III TM distance: >3 FB Neck ROM: full Cardiovascular Assessment: Rhythm: regular Pulmonary Assessment: Dental Assessment: Misc Assessment: Anesthesia Plan: ASA 2 MAC, with a(n) intravenous induction MAC w/ GA backup. Pt w/ Hx difficult intubation. Will have Glidescope available if intubation needed. Informed Consent: Anesthetic plan and risks discussed with patient. Plan discussed with CASH [facility]ER. [facility] Assessment: documented in this encounter Plan of Treatment Upcoming Encounters Date Type Department Care Team (Late st Contact Info) Description 05/24/2025 11:00 AM EDT Office Visit Radiation Oncology at [address] [phone] Jesse Mcmahan MD [facility] [place] [address] documented as of this encounter Visit Diagnoses Not on filedocumented in this encounter Care Teams Shop Foreman Relationship Specialty Start Date End Date Bj Alves MD [address] [place] [phone] PCP - General 06/25/10 04/02/23 documented as of this encounter
--- OUTSIDE RECORDS SUMMARY | 2024-08-01 15:29 | XMS_ITS | Encounter Summary ---
Author Organization [facility] [place] [address] Care Team Providers Care Weapons Designer Name Role Phone Bj Alves MD Primary Care Provider [phone] Reason for Referral * Speech Therapy (Routine) - Closed by system - unspecified Specialty Diagnoses / Procedures Referred By Contac t Referred To Contact Speech Pathology Diagnoses Cancer of base of tongue Leslie Guzman APRN [facility] DR HEMATOLOGY/[place] [address] Referral ID Status Reason Start Date Expiration Date Visits Requested Visits Authorized [id number] Closed by system - unspecified Evaluate and Treat 06/04/2012 12/01/2012 1 1 Reason for Visit * Reason Comments Follow-up Encounter Details Date Type Department Care Team (Late st Contact Info) Description 06/04/2012 3:30 PM EDT Follow-Up Hematology Oncology at [address] [phone] Leslie Guzman APRN Cancer of base of tongue; Sleep apnea; Anxiety; Back pain, chronic; Claustrophobia; Ulnar neuropathy; Hypothyroidism; GERD (gastroesophageal reflux disease); Psoriasis Discharge Disposition: Home Social History Tobacco Use [...] Sign Reading Time Taken Comments Blood Pressure 133/72 06/04/2012 3:08 PM EDT Pulse 83 06/04/2012 3:08 PM EDT Temperature 36.5 ??C (97.7 ??F) 06/04/2012 3:08 PM ED T Respiratory Rate 18 06/04/2012 3:08 PM EDT Oxygen Saturation 98% 06/04/2012 3:08 PM EDT Inhaled Oxygen Concentration - - Weight 89 kg (196 lb 3.4 oz) 06/04/2012 3:08 PM EDT Height 175.3 cm (5' 9.02) 06/04/2012 3:08 PM ED T Body Mass Index 28.96 06/04/2012 3:08 PM EDT documented in this encounter Progress Notes * Leslie Guzman, DIRECTOR PROCESS ENGINEERING - 06/04/2012 4:09 PM [place] [address] FOLLOW-UP PATIENT EVALUATION CHIEF COMPLAINT: Sebastian Wyatt is seen today in the multidisciplinary clinic for Head and NeckCancer follow-up. Patient Active Problem List Diagnoses ??? 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 1 PPD x 38 yrs. Quit 08/2011. Developed odynophagia early 11/2011, abx did not improve, . Referred to ENT. He does note some coughing in the morning ove the past year. Stagin12/09/11 CT H&N with contrast ([facility]): Mixed attenuation mass with lare low density areas suggesting necrotic change present deep to anterior aspect L SCM. Mass smoothly marginated, max 3.3 x 5.2 cm. 11/27/11 PET-CT ([facility] [place]): Despite premedication, severe claustrophobia allowed this can [...] ??? Back pain, chronic ??? Thalassemia minor INTERIM HISTORY: Time from Rx completion: 2 months from completion of treatment neg pos comment Medical events: continues to have trouble recovering from treatment in that his swallow is difficult to 2 pain and anxiety secondary to fearing that he will choke Major problems: x Dysphagia: x Odynophagia: x Aspiration symptoms: x Xerostomia: x Taste sensation: x please see dietitian's note for full details ROS Neuro: Denies dizziness, H/A, gait changes, numbness or tingling; vision or hearing changes Change in adenopathy or other masses: No C/V: Denies chest pain, palpitations or swelling of extremities Resp: No SOB, wheezing, or coughing GI: Bowels regular, denies abdominal pain Nutrition: [] oral [] feeding tube [x] combination Appetite: fair : Urinary pattern normal; denies pain, frequency, urgency, or incontinence Musculoskeletal complaints: None Skin: No changes, rashes, lumps INTERIM SOCIAL HISTORY Changes in job, home situation, tobacco or alcohol use: None Psychosocial/spiritual issues: Continues with anxiety related to his swallowing CHANGES IN RELEVANT FAMILY HISTORY:None Filed Vitals: 06/04/12 1508 BP: 133/72 Pulse: 83 Temp: 36.5 ??C (97.7 ??F) Resp: 18 PHYSICAL EXAM General appearance: cachectic but in no acute distress Nutritional status: tenuous-under the care of the dietitian Skin: Examination of the skin revealed no evidence of significant rashes, suspicious appearning nevi or other concerning lesions. well-healed with mild erythema underneath the dressing of Oral: tongue with evidence of either hyperkeratosis or thrush to the anterior surface Dentition: no changes Neck: The neck is supple without adenopathy noted bilaterally. Good ROM in all directions. Peripheral nodes: No lymphadenopathy noted. Chest: Examination of the chest was unremarkable. There were no bony deformities, no asymmetry, or other abnormalities. Clear to auscultation bilaterally without wheezes or crackles. Heart: S1 S2 are normal without rubs or gallops. Regular rate and rhythm. Abdomen: Abdominal exam revealed normal bowel sounds. The abdomen was soft, non- tender, and withoutmasses or hepatosplenomegaly.Adan in place without evidence of infection. Extremties: Examination of the extremities revealed no cyanosis, clubbing or edema. Neurologic: Neurologically, the patient was awake, alert, and oriented to person, place and time. There were no obvious focal neurologic abnormalities. Cranial nerves grossly intact. EOMs normal. Fiberoptic laryngoscopy: not performed today LABORATORY STUDIES RADIOLOGY STUDIES REVIEWED: Impression: 1. Recovering from treatment toxicities. 2. Possible thrush 3. anxiety causing insomnia/difficulty swallowing 4. Fatigue PLAN 5. Culture for thrush/fluconazole x 14d 6. Increase prozac to 30mg 7. Taper off fentanyl - drop by 12 mcg every 6d.He is to use his oxycodone for breakthrough if he has withdraw effects and/or pain 8. RTC 2wks 9. Followup: per [facility] standard H/N followup schema. This note prepared with voice recognition software; minor personal coach errors may result. Leslie Guzman, MSN, DIRECTOR PROCESS ENGINEERING, [facility] Hematology/Medical Oncology [phone] documented in this encounter Plan of Treatment Upcoming Encounters Date Type Department Care Team (Late st Contact Info) Description 05/24/2025 11:00 AM EDT Office Visit Radiation Oncology at [address] [phone] Jesse Mcmahan MD [facility] [place] [address] Scheduled Referrals Name Type Priority Associated Diagnoses Orde r Schedule Referral to Speech Therapy Outpatient Referral Routine Cancer of base of tongue Ordered: 06/04/2012 documented as of this encounter Visit Diagnoses Diagnosis Cancer of base of tongue Malignant neoplasm of base of tongue Sleep apnea Unspecified sleep apnea Anxiety Anxiety state, unspecified Back pain, chronic Backache, unspecified Claustrophobia Other isolated or specific phobias Ulnar neuropathy Lesion of ulnar nerve Hypothyroidism Unspecified hypothyroidism GERD (gastroesophageal reflux disease) Esophageal reflux Psoriasis Other psoriasis documented in this encounter Care Teams Weapons Designer Relationship Specialty Start Date End Date Bj Alves MD [address] [place] [phone] PCP - General 06/25/10 04/02/23 documented as of this encounter
--- OUTSIDE RECORDS SUMMARY | 2024-08-01 15:29 | XMS_ITS | Encounter Summary ---
Author Organization [facility] Address [facility] Javier johnsonмарина [place] [address] Care Team Providers Care Media Supervisor Name Role Phone Bj Alves MD Primary Care Provider [phone] Encounter Details Date Type Department Care Team (Late st Contact Info) Description 07/09/2012 8:00 AM EST Ancillary Appointment Hematology Oncology at [address] [phone] Sabine Nash, MANJU [facility] [place] [address] Social History Tobacco Use Types Packs/Day Years [...] Progress Notes * Sabine Nash, MANJU - 07/09/2012 8:37 AM EST TC to [place] for nutrition follow up. Eating beans, mashed pots, and softened cereal. Still c/o pain after eating soft foods. He has not been eating toast anymore. He has not been adding his protein powder to yogurt, which would add an additional 130 kcals, because it is chocolate flavored. Urged and encouraged him to purchase unflavored protein powder. Weight: 84.5 kg on 07/06/12; 5.1% decrease in ~ 3 weeks. Was weighed in 2k with just a mait on. Typically when in [place]. is weighed fully clothed. We reviewed foods to help increase kcals. Unclear of compliance; however, due to weight loss, noncompliance is evident. Plan: --Patient is urged to purchase a scale to monitor weight as GT weaning continues. --GT: Reduce to 5 cans/day. Will follow up on , 07/13/12 after his MBS to monitor weight and withdraw an additional can. documented in this encounter Plan of Treatment Upcoming Encounters Date Type Department Care Team (Late st Contact Info) Description 05/24/2025 11:00 AM EDT Office Visit Radiation Oncology at [address] [phone] Jesse Mcmahan MD [facility] [place] [address] documented as of this encounter Visit Diagnoses Not on filedocumented in this encounter Care Teams Media Supervisor Relationship Specialty Start Date End Date Bj Alves MD [address] [place] [phone] PCP - General 06/25/10 04/02/23 documented as of this encounter
--- OUTSIDE RECORDS SUMMARY | 2024-08-01 15:29 | XMS_ITS | Encounter Summary ---
Author Organization [facility] Address [facility] [place] [address] Care Team Providers Care Forming Operator Name Role Phone Bj Alves MD Primary Care Provider [phone] Encounter Details Date Type Department Care Team (Late st Contact Info) Description 06/08/2012 12:00 PM EST Ancillary Appointment Hematology Oncology at [address] [phone] Sabine Nash, MANJU [facility] [place] [address] Social History Tobacco Use Types Packs/Day Years [...] Progress Notes * Sabine Nash, RD - 06/08/2012 11:16 AM EST Briefly touched base with pt while he was in the waiting room today. He has started his fentanyl patch taper. This was initiated on 06/07/12. States he can't quite put his finger on it but does feel a little less in a daze or fog. He went to [facility] on last week to set up an appointment with STORY ANALYST. He is scheduled to see STORY ANALYST on 06/11/12. He has increased his TF back to 8 cans, nocturnally. Also states he has tried to take more p.o., but will feel more comfortable with these attempts after seeing Speech. Also states he didn't fill the script for Diflucan that was issued on 06/04/12 by Leslie Guzman APRN, as he was unclear if he should start this after his cultures were read. Encouraged him to fill this and start it. Will follow up with patient in 3 weeks. documented in this encounter Plan of Treatment Upcoming Encounters Date Type Department Care Team (Late st Contact Info) Description 05/24/2025 11:00 AM EDT Office Visit Radiation Oncology at [address] [phone] Jesse Mcmahan MD [facility] [place] [address] documented as of this encounter Visit Diagnoses Not on filedocumented in this encounter Care Teams Forming Operator Relationship Specialty Start Date End Date Bj Alves MD [address] [place] [phone] PCP - General 06/25/10 04/02/23 documented as of this encounter
--- OUTSIDE RECORDS SUMMARY | 2024-08-01 15:29 | XMS_ITS | Encounter Summary ---
Author Organization [facility] [address] Care Team Providers Care Radio Station Audio Engineer Name Role Phone Bj Alves MD Primary Care Provider [phone] Encounter Details Date Type Department Care Team (Late Contact Info) Description 07/06/2012 12:00 PM EST Clinical Support [facility] [place] [phone] Social History Tobacco Use Types Packs/Day Years [...] EDT Office Visit Radiation Oncology at [address] [phone] Jesse Mcmahan MD [facility] [place] [address] documented as of this encounter Visit Diagnoses Not on filedocumented in this encounter Care Teams Radio Station Audio Engineer Relationship Specialty Start Date End Date Bj Alves MD [address] [place] [phone] PCP - General 06/25/10 04/02/23 documented as of this encounter
--- OUTSIDE RECORDS SUMMARY | 2024-08-01 15:29 | XMS_ITS | Encounter Summary ---
Author Organization [facility] [place] [address] Care Team Providers Care Rug Designer Name Role Phone Bj Alves MD Primary Care Provider [phone] Reason for Referral * Physical Therapy (Routine) - Closed by system - unspecified Specialty Diagnoses / Procedures Referred By Contac t Referred To Contact Physical Therapy Diagnoses Dysphagia, unspecified(967.20) DIFFICULT AIRWAY Ulnar neuropathy Claustrophobia Thalassemia minor Back pain, chronic Anxiety Sleep apnea Psoriasis GERD (gastroesophageal reflux disease) Hypothyroidism Cigarette smoker Glucose intolerance (impaired glucose tolerance) Hypertension Hyperlipidemia Obesity Cancer of base of tongue Leslie Guzman APRN [facility] DR HEMATOLOGY/[place] [address] Referral ID Status Reason Start Date Expiration Date Visits Requested Visits Authorized [id number] Closed by system - unspecified Evaluate and Treat 2 12/15/2012 1 1 Reason for Visit * Reason Comments Pain Encounter Details Date Type Department Care Team (Late st Contact Info) Description 06/18/2012 1:00 PM EST Follow-Up Hematology Oncology at [address] [phone] Leslie Guzman APRN Dysphagia, unspecified; DIFFICULT AIRWAY; Ulnar neuropathy; Claustrophobia; Thalassemia minor; Back pain, chronic; Anxiety; Sleep apnea; Psoriasis; GERD (gastroesophageal reflux disease); Hypothyroidism; Cigarette smoker; Glucose intolerance (impaired glucose tolerance); Hypertension; Hyperlipidemia; Obesity; Cancer of base of tongue Discharge Disposition: [...] Sign Reading Time Taken Comments Blood Pressure 128/78 06/18/2012 12:57 PM EST Pulse 85 06/18/2012 12:57 PM EST Temperature 36.6 ??C (97.9 ??F) 06/18/2012 12:[address] Respiratory Rate 18 06/18/2012 12:57 PM EST Oxygen Saturation 99% 06/18/2012 12:57 PM EST Inhaled Oxygen Concentration - - Weight 89 kg (196 lb 3.4 oz) 06/18/2012 12:57 PM EST Height 175.3 cm (5' 9.02) 06/18/2012 12:[address] Body Mass Index 28.96 06/18/2012 12:57 PM EST documented in this encounter Progress Notes * Leslie Guzman, FOOD SERVICE AMBASSADOR - 06/18/2012 1:35 PM EST Oncology Clinic [facility] FOLLOW-UP PATIENT EVALUATION CHIEF COMPLAINT: Sebastian Wyatt [...] minor INTERIM HISTORY: Time from Rx completion: 10wks comment Medical events: none Major problems: L shoulder pain - burning, over area of hair lost over top of shoulder subsequent to XRT Dysphagia: Mild- r/t pain in throat when swallowing Odynophagia: none Aspiration symptoms: none Xerostomia: none Taste sensation: normal Diet restrictions: Still working towards full solids but experimenting now- [facility] for the . Functional status: Still feels unable to go back to work due to pain in shoulder when driving Dental problems: none ROS Neuro: Denies dizziness, H/A, gait changes, numbness or tingling; vision or hearing changes Change in adenopathy or other masses: No C/V: Denies chest pain, palpitations or swelling of extremities Resp: No SOB, wheezing, or coughing GI: Bowels regular, denies abdominal pain Nutrition: [] oral [] feeding tube [x] combination Appetite: good : Urinary pattern normal; denies pain, frequency, urgency, or incontinence Musculoskeletal complaints: houlder Skin: No changes, rashes, lumps but notes shoulders are now bare of hair which is not normal for him INTERIM SOCIAL HISTORY Changes in job, home situation, tobacco or alcohol use: None Psychosocial/spiritual issues: remains highly anxious; today very anxious about PET scan and wakingup in the middle of it CHANGES IN RELEVANT FAMILY HISTORY:None Filed Vitals: 06/18/12 1257 BP: 128/78 Pulse: 85 Temp: 36.6 ??C (97.9 ??F) Resp: 18 PHYSICAL EXAM General appearance: well-appearing in no acute distress Nutritional status: he has lost another kilogram since his last visit and remains on tube feeds under the care of the dietitian Skin: Examination of the skin revealed no evidence of significant rashes, suspicious appearning nevi or other concerning lesions; of note he has no here on the top of his shoulders bilaterally and hair regrowing at the bottom of his neck within the treatment field. Oral: oral mucosa is without evidence of infection; his tongue seems improved although still not completely normal; he does have some mildly erythematous areas in the back of his soft palate and tonsil however no evidence of mucositis. Dentition: no changes Neck: The neck is [...] was soft, non- tender, and withoutmasses or hepatosplenomegaly. Extremties: Examination of the extremities revealed no cyanosis, clubbing or edema. Neurologic: Neurologically, the patient was awake, alert, and oriented to person, place and time. There were no obvious focal neurologic abnormalities. Cranial nerves grossly intact. EOMs normal. LABORATORY STUDIES No results found for this or any previous visit (from the past 72 hour(s)). RADIOLOGY STUDIES REVIEWED:none today Impression: 1. Still recovering from treatment toxicities; mild pain to the back of the throat 2. Neuropathic pain to the dorsal shoulder however etiology is unclear- may be due to XRT changes/fibrosis to the neck. PLAN He will finish out the fentanyl taper. I will plan on a PT referral for him to see a physical therapist for his pain. Followup: per [facility] standard H/N followup schema. 3mo eval on the at [facility] This note prepared with voice recognition software; minor indirect sales representative errors may result. Leslie Guzman, MSN, FOOD SERVICE AMBASSADOR, [facility] Hematology/Medical Oncology [phone] documented in this encounter Procedure Notes * Provider, Scanning - 06/21/2012 4:34 PM ESTAssociated Order(s): SCAN DOC: LAB documented in this encounter Plan of Treatment Upcoming Encounters Date Type Department Care Team (Late st Contact Info) Description 05/24/2025 11:00 AM EDT Office Visit Radiation Oncology at [address] [phone] Jesse Mcmahan MD [facility] [place] [address] Scheduled Referrals Name Type Priority Associated Diagnoses Orde r Schedule Referral to Physical Therapy Outpatient Referral Routine Dysphagia, unspecified DIFFICULT AIRWAY Ulnar neuropathy Claustrophobia Thalassemia minor Back pain, chronic Anxiety Sleep apnea Psoriasis GERD (gastroesophageal reflux disease) Hypothyroidism Cigarette smoker Glucose intolerance (impaired glucose tolerance) Hypertension Hyperlipidemia Obesity Cancer of base of tongue Ordered: 06/18/2012 documented as of this encounter Procedures Procedure Name Priority Date/Time Associated Diagnosis Comments LAB SCAN 06/21/2012 4:34 PM EST documented in this encounter Results * SCAN DOC: LAB (06/21/2012 4:34 PM EST) Narrative 06/21/2012 4:34 PM EST Procedure Note Provider, Scanning - 06/21/2012 4:34 PM EST Scanning Provider MEDIA MGR SCAN EXT O RDR/RSLT documented in this encounter Visit Diagnoses Diagnosis Dysphagia, unspecified(787.20) Dysphagia, unspecified DIFFICULT AIRWAY Ulnar neuropathy Lesion of ulnar nerve Claustrophobia Other isolated or specific phobias Thalassemia minor Other thalassemia Back pain, chronic Backache, unspecified Anxiety Anxiety state, unspecified Sleep apnea Unspecified sleep apnea Psoriasis Other psoriasis GERD (gastroesophageal reflux disease) Esophageal reflux Hypothyroidism Unspecified hypothyroidism Cigarette smoker Tobacco use disorder Glucose intolerance (impaired glucose tolerance) Impaired glucose tolerance test Hypertension Unspecified essential hypertension Hyperlipidemia Other and unspecified hyperlipidemia Obesity Obesity, unspecified Cancer of base of tongue Malignant neoplasm of base of tongue documented in this encounter Care Teams Rug Designer Relationship Specialty Start Date End Date Bj Alves MD [address] [place] [phone] PCP - General 06/25/10 04/02/23 documented as of this encounter
--- OUTSIDE RECORDS SUMMARY | 2024-08-01 15:29 | XMS_ITS | Encounter Summary ---
Author Organization [facility] [place] [address] Care Team Providers Care Quality Coordinator Name Role Phone Bj Alves MD Primary Care Provider [phone] Reason for Visit * Reason Onset Date Comments Rash 07/02/2012 Encounter Details Date Type Department Care Team (Late st Contact Info) Description 07/02/2012 Telephone Hematology Oncology at [address] [phone] Mracia Hall, RN Rash Social History Tobacco Use Types Packs/Day Years [...] encounter Miscellaneous Notes * Telephone Encounter - Marcia Hall RN - 07/02/2012 11:08 AM EST Phone call from patient's , Odette (whom is a nurse practitioner). She wanted to report that patient started to develop a rash on soles of feet/heels and palms of hands about one month ago. States that there are scattered pustules and macules on heels and palms of hands. As of yesterday 2cm area of sloughing noted on his heels. States nothing looks infected and it does not look like a psoriasis rash and is inclined to think it is a delayed reaction from the cetuximab. I don't feel we need to do anything about it right now, but felt I should report it. Patient is scheduled to see Dr. Catalan and Dr. Mcmahan next Thursday and he will have them look at it at that time. Odette will certainlycall back should it worsen or start to show signs of any infection. Of note is that she also reports patient has had diarrhea for about 3 days. Note forwarded to Dr. Underwood to make him aware. documented in this encounter Plan of Treatment Upcoming Encounters Date Type Department Care Team (Late st Contact Info) Description 05/24/2025 11:00 AM EDT Office Visit Radiation Oncology at [address] [phone] Jesse Mcmahan MD [facility] [place] [address] documented as of this encounter Visit Diagnoses Not on filedocumented in this encounter Care Teams Quality Coordinator Relationship Specialty Start Date End Date Bj Alves MD [address] [place] [phone] PCP - General 06/25/10 04/02/23 documented as of this encounter
--- OUTSIDE RECORDS SUMMARY | 2024-08-01 15:29 | XMS_ITS | Encounter Summary ---
Author Organization [facility] [place] [address] Care Team Providers Care Gun Mechanic Name Role Phone Bj Alves MD Primary Care Provider [phone] Encounter Details Date Type Department Care Team (Late st Contact Info) Description 06/22/2012 Telephone Hematology [place] [phone] Salud Amaro, RN Social History Tobacco Use Types Packs/Day [...] Miscellaneous Notes * Telephone Encounter - Salud Amaro - 06/22/2012 4:18 PM EST Images from the original note were not included. Research Nurse Telephone Note RTOG 1016 Phase III Trial of Radiotherapy Plus Cetuximab VERSUS Chemoradiotherapy In HPV-Associated Oropharynx Cancer Date: 06/22/2012 Time: 1330 PT ID: [id number] Case #: [id number] Mr. 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 Mr. Modi consented to participate in RTOG 1016, signed consent and was subsequently randomized to ARM 2: RT with Cetuximab. Mr Wyatt began Day 1 Cetuximab Loading Dose @ 400 mg/m2 on 02/17/2012. Mr. modi completed Cetuximab with Infusion # 8 on 04/06/2012 Mr Wyatt began Day 1 RT on 02/24/2012. Mr Modi completed RT on 04/06/2012 06/21/2012: Telephone Messages to pt left on home phone and cell phone asking him to contact me regarding his follow up care with no response from him.. 06/22/2012: Email Message to Mr Modi sent return receipt with no response from him (see text below) 06/22/2012: 1330: 2nd Attempt: TELEPHONE CALL TO PT RE; FOLLOW UP APPOINTMENTS I was able to reach Mr. Wyatt by phone today and discussed with him the importance of attending upcoming appointments required to assess his disease status and response to treatment to define future care. Mr. Modi did state that he would accept and attend the appointments scheduled here at [facility] on 07/06/2012. Salud Amaro MIXER DRIVER CCRP RTOG Research Nurse Rena 06/22/2012 1:07 PM [email or web address] Salvador Kirk, I have not received a response to the phone messages I left at your home and on your cell yesterdaythat I am aware of. Therefore, I will try email. I understand your frustration with scheduling medical appointment at [facility] in [place] due to the traveling distance. However,- it is imperative that you have a full assessment at the 3 month post treatment period as this will define your response and disease status. The information that will be gathered is necessary to guide your cancer care which is in the interest of your best medical care. Dr. Mcmahan and Dr. Catalan, as well as Leslie Guzman, Nurse Practitioner and I, with the rest of yourtreatment team, met this morning and came up with one appointment day that will accomplish this as follows: 07/06/2012: At the [facility] 1130 am: 3K Mini-Infusion Suite for labs drawn from your port 1200 pm: 3W PET Scan 3 pm: 2K Dr. Mcmahan 4 pm: 3K Dr. Catalan All these appointments, exams and test are Standard of Care requested by your treating physicians. These are not due to your participation in your clinical trial. This is the most current appointment schedule. If you have any questions or need clarification about notification for other appointments, please contact me. I am happy to help you in any way that I can- as is the entire treatment team. You have been through the [facility] to get to this point. Now your physicians need to assess the response of your cancer to the treatment you have received to keep you healthy. Please feel free to call or contact me. Sincerely, Ramona Amaro MIXER DRIVER CCRP RTOG Projects Manager/Research Nurse Radiation Oncology [email or web address] [phone] fax [phone] A Culture of Caring documented in this encounter Plan of Treatment Upcoming Encounters Date Type Department Care Team (Late st Contact Info) Description 05/24/2025 11:00 AM EDT Office Visit Radiation Oncology at [address] [phone] Jesse Mcmahan MD [facility] [place] [address] documented as of this encounter Visit Diagnoses Not on filedocumented in this encounter Care Teams Gun Mechanic Relationship Specialty Start Date End Date Bj Alves MD [address] [place] [phone] PCP - General 06/25/10 04/02/23 documented as of this encounter
--- OUTSIDE RECORDS SUMMARY | 2024-08-01 15:29 | XMS_ITS | Encounter Summary ---
Author Organization [facility] [place] [address] Care Team Providers Care Curing Room Supervisor Name Role Phone Bj Alves MD Primary Care Provider [phone] Encounter Details Date Type Department Care Team (Late Contact Info) Description 05/26/2012 Orders Only Hematology [place] [phone] Butch Catalan MD [address] [place] [address] [place] [address] Cancer of base of tongue; Hypothyroidism Social [...] EDT Office Visit Radiation Oncology at [address] [phone] Jesse Mcmahan MD [facility] [place] [address] documented as of this encounter Results * PET-CT skull base to mid thigh (07/06/2012 3:37 PM EST) Anatomical Region Laterality Modality Other 07/06/2012 3:37 PM EST Narrative 07/07/2012 8:23 AM EST Examination PET/CT SKULL BASE TO MID-THIGH Technique Procedure: Following IV injection of 30-ejlszo-5-deoxyglucose (FDG) and a standard uptake period, a [...] you for referring this patient to the [facility] PET Center Film and interpretation reviewed by the attending Procedure Note Abhi Gao MD - 07/07/2012 Examination PET/CT SKULL BASE TO MID-THIGH Technique Procedure: Following IV injection of 37-kyucjk-0-deoxyglucose (FDG) and a standard uptake period, a [...] you for referring this patient to the [facility] PET Center Film and interpretation reviewed by the attending Butch Catalan MD G PET ORDERABLES * (ABNORMAL) TSH (07/06/2012 11:25 AM EST) Thyroid Stimulating Hormone 0.14(L) 0.27 - 4.20 mcIU/mL RAMU COBOS Blood specimen (specimen) 07/06/2012 11:25 AM EST 07/06/2012 11:45 AM EST Narrative Resulting Agency Comment Spec In Lab Butch Catalan MD CHEMISTRY ORDERABLES CERNER MILLENNIUM * (ABNORMAL) CBC (with Diff) [...] metabolic panel (non-fasting) (07/06/2012 11:25 AM EST) Pathologist [facility] Glucose 107 60 - 199 mg/dL CERNER MILLENNIUM Comment:Diabetes: >=200 mg/d L plus symptoms Blood Urea Nitrogen 20 10 - 20 mg/dL CERNER MILLENNIUM Creatinine 1.13 0.80 - 1.50 mg/dL CERNER MILLENNIUM Comment: Please note that the pediatric reference intervals supplied above were not validated at [facility]. Results from pediatric patients should be interpreted [...] In Lab Butch Catalan MD CHEMISTRY ORDERABLES [facility] documented in this encounter Visit Diagnoses Diagnosis Cancer of base of tongue Malignant neoplasm of base of tongue Hypothyroidism Unspecified hypothyroidism Cancer of base of tongue Malignant neoplasm of base of tongue Hypothyroidism Unspecified hypothyroidism documented in this encounter Care Teams Curing Room Supervisor Relationship Specialty Start Date End Date Bj Alves MD [address] [place] [phone] PCP - General 06/25/10 04/02/23 documented as of this encounter
--- OUTSIDE RECORDS SUMMARY | 2024-08-01 15:29 | XMS_ITS | Encounter Summary ---
Author Organization [facility] [place] [address] Care Team Providers Care Environmental Health Inspector Name Role Phone Bj Alves MD Primary Care Provider Encounter Details Date Type Department Care Team (Late st Contact Info) Description 09/24/2012 4:00 PM EST Ancillary Appointment Hematology Oncology at [address] [phone] Sabine Nash, MANJU [facility] [place] [address] Social History Tobacco Use Types Packs/Day Years [...] Progress Notes * Sabine Nash, MANJU - 09/24/2012 12:28 PM EST Diagnosis: Intermediate grade squamous cell [...] arm. Completed tx the week of 04/08/12. G-tube was pulled on 09/10/12. He returns today for 5 mos follow up for RT. Assessment: Ht: 175.3 cm Wt: 90 kg on 09/24/12: increase Previous Wts: 89.8 kg on 09/10/12: increase 88 kg on 08/06/11; 89 kg on 06/18/12: [...] and coffee doesn't taste normal for him. Eating white whole wheat, chx, sausage, fish, rice. B: 2 slices of toast with PB and honey L: sandwich w/ cheese and richardson, rice with cheese and ham D: fishcakes with rice and salad Snacks: may have fruit (apples or bananas) HS blueberry milkshake with vanilla ice cream, berries,banana, and upper sorbian yogurt Hasn't tasted ETOH. G-Tube: pulled 09/10/12. G-tube site healing well. Teas, vitamins, or other nutritional supplements: D3, Vitamin C, hasn't resumed Vitamin B. Food allergies or avoidances: rinku Appetite: Does have one now during the day, - Nausea: denies, but will have heartburn that tends to resolve quickly. Doesn't have to take anything for this. Vomiting: denies Chewing: denies Dentition: last dental cleaning on 09/18/12. Swallowing: Painful 03/12. This has increased. Takes 5 mg of roxicodone when needed at night, now has increased to 2-4 nights/week. Xerostomia: +, does soda/salt rinses throughout the day, uses Clara mouthwash and spray. Taste Changes: +, some hypoguesia. Taste for bananas has returned. Bowels: Going daily Activity: Continues to do daily chores, feeds horses, etc....Getting out more and walking. Food availability/purchasing, meal planning and preparation: He does this, doesn't cook very well and he prefers her to come into the kitchen. Depression: n/a, affect continues to be very optimistic and upbeat Social Support: States it is wonderful. and dtr, Lucero, (10 YO) very supportive. 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 G-tube pulled on 09/10/12. Site healing well and weight has slightly increased. Continues to have pain with swallowing, this seems to have increased recenlty. He has started taking oxycodone at night more frequently. Continues with some hypogeusia. 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 He continues to do swallow exercises. Stated PT for edema, three times/wk. Not limited with p.o. Activity and stamina are increasing. Feet are healing better and feeling better. Getting 3-4 hours of sleep/night. Hasn't started salagen for xerostomia, hasn't received it. Port to be pulled on 09/29/12. Nutrition Intervention: Increase caloric needs : Discussed Modify diet consistency: soft diet Increase frequency of meals and snacks : q 2-3 hours Need for supplements : Nutrition Goals: Weight maintenance and LBM preservation Educational Handouts provided: -- Protein needs and sources -- Dirty Dozen and Clean Fifteen F& V list -- High Dean/Pro milk shake recipes -- Power pudding recipe Other: Monitoring and Evaluation: Will follow up with Mr Nayan Wyatt per H& N schema. documented in this encounter Plan of Treatment Upcoming Encounters Date Type Department Care Team (Late st Contact Info) Description 05/24/2025 11:00 AM EDT Office Visit Radiation Oncology at [address] [phone] Jesse Mcmahan MD [facility] [place] [address] documented as of this encounter Visit Diagnoses Not on filedocumented in this encounter Care Teams Environmental Health Inspector Relationship Specialty Start Date End Date Bj Alves MD [address] [place] [phone] PCP - General 06/25/10 04/02/23 documented as of this encounter
--- OUTSIDE RECORDS SUMMARY | 2024-08-01 15:30 | XMS_ITS | Encounter Summary ---
Author Organization [facility] [place] [address] Care Team Providers Care Package Delivery Room Service Runner Name Role Phone Bj Alves MD Primary Care Provider [phone] Encounter Details Date Type Department Care Team (Late Contact Info) Description 04/14/2012 Notes Only Hematology Oncology at [address] [phone] Cordelia Schumacher RN Social History Tobacco Use Types Packs/Day [...] as of this encounter Progress Notes * Cordelia Schumacher RN - 04/14/2012 8:47 AM EDT Call placed to [facility] in [facility] this morning. Sebastian is inpatient. Left message with RN, no callreturned. Sebastian called Thursday to say that he was discharged. He was informed that he had an appt with Dr. Mcmahan on Thursday. He will be scheduled to see Dr. Underwood next week. documented in this encounter Plan of Treatment Upcoming Encounters Date Type Department Care Team (Late Contact Info) Description 05/24/2025 11:00 AM EDT Office Visit Radiation Oncology at [address] [phone] Jesse Mcmahan MD [facility] [place] [address] documented as of this encounter Visit Diagnoses Not on filedocumented in this encounter Care Teams Package Delivery Room Service Runner Relationship Specialty Start Date End Date Bj Alves MD [address] [place] [phone] PCP - General 06/25/10 04/02/23 documented as of this encounter
--- OUTSIDE RECORDS SUMMARY | 2024-08-01 15:30 | XMS_ITS | Encounter Summary ---
Author Organization [facility] [place] [address] Care Team Providers Care Divorce Lawyer Name Role Phone Bj Alves MD Primary Care Provider [phone] Reason for Visit * Reason Comments IV Medication hydration Encounter Details Date Type Department Care Team (Late st Contact Info) Description 04/09/2012 9:30 AM EDT Office Visit Hematology Oncology at [address] [phone] CLINIC, DR AMARAL HEM/ONC Rich Aguilera MD Head and neck cancer (Primary Dx) Discharge Disposition: Home Social History [...] Sign Reading Time Taken Comments Blood Pressure 125/78 04/09/2012 9:00 AM EDT Pulse 105 04/09/2012 9:00 AM EDT Temperature 37.3 ??C (99.1 ??F) 04/09/2012 9:00 AM ED T Respiratory Rate 18 04/09/2012 9:00 AM EDT Oxygen Saturation 96% 04/09/2012 9:00 AM EDT Inhaled Oxygen Concentration - - Weight - - Height - - Body Mass Index - - documented in this encounter Progress Notes * Cordelia Schumacher RN - 04/09/2012 9:21 AM EDT INFUSION THERAPY ADMINISTRATION NOTES DIAGNOSIS: head and neck cancer s/p chemo and XRT REASON FOR VISIT: Hydration SUBJECTIVE Sebastian offers that he is nauseated, and was given ondansetron 16mg IV. OBJECTIVE IV ACCESS: Mediport REACTIONS (DESCRIPTION, TIME, INTERVENTION AND EFFECTIVENESS) none ASSESSMENT Sebastian was awake, alert and he tolerated treatment well. PLAN Return to clinic Thursday for continued hydration. documented in this encounter Plan of Treatment Upcoming Encounters Date Type Department Care Team (Late st Contact Info) Description 05/24/2025 11:00 AM EDT Office Visit Radiation Oncology at [address] [phone] Jesse Mcmahan MD [facility] [place] [address] documented as of this encounter Visit Diagnoses Diagnosis Head and neck cancer- Primary Malignant neoplasm of head, face, and neck documented in this encounter Administered Medications Inactive Administered Medications - up to 3 most recent administrations Medication Order MAR Action Action Date Dose Rate Site ondansetron (ZOFRAN) 16 mg in sodium chloride 0.9% 58 mL IVPB Intravenous, at 232 mL/hr, ONCE, On Thu04/09/12 at 1130, 1 dose Given 04/09/2012 11:15 AM EDT 232 mL/hr sodium chloride 0.9% with potassium chloride 20 mEq infusion 500 mL/hr, Intravenous, ONCE, 1 dose, On Thu04/09/12 at 0930 New Bag 04/09/2012 9:00 AM EDT 500 mL/hr 500 mL/hr documented in this encounter Care Teams Divorce Lawyer Relationship Specialty Start Date End Date Bj Alves MD [address] [place] [phone] PCP - General 06/25/10 04/02/23 documented as of this encounter
--- OUTSIDE RECORDS SUMMARY | 2024-08-01 15:30 | XMS_ITS | Encounter Summary ---
Author Organization [facility] [place] [address] Care Team Providers Care Learning Support Resource Room Teacher Name Role Phone Bj Alves MD Primary Care Provider [phone] Reason for Visit * Reason Comments Head And Neck Cancer Encounter Details Date Type Department Care Team (Late st Contact Info) Description 03/23/2012 10:00 AM EDT Follow-Up Hematology Oncology at [address] [phone] Rakesh Underwood MD Oral infection (Primary Dx); Pain; Head and neck cancer; CINV (chemotherapy-induced nausea and vomiting) Discharge Disposition: Home Social History Tobacco Use [...] Sign Reading Time Taken Comments Blood Pressure 113/74 03/23/2012 10:00 AM EDT Pulse 90 03/23/2012 10:00 AM EDT Temperature 37.3 ??C (99.1 ??F) 03/23/2012 10:00 AM E DT Respiratory Rate 18 03/23/2012 10:00 AM EDT Oxygen Saturation 96% 03/23/2012 10:00 AM EDT Inhaled Oxygen Concentration - - Weight 99.3 kg (219 lb) 03/23/2012 10:00 AM EDT Height 175.3 cm (5' 9.02) 03/23/2012 10:00 AM E DT Body Mass Index 32.33 03/23/2012 10:00 AM EDT documented in this encounter Progress Notes * Flaquita Whitaker RN - 03/23/2012 3:01 PM EDTAddended by: FLAQUITA WHITAKER on: 03/23/2012 Modules accepted: Orders * Rakesh Underwood MD - 03/23/2012 11:18 AM EDT Diagnosis: 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 Patient has been enrolled on RTOG 1016 andrandomized to the radiation therapy plus Erbitux arm. Subjective: Salvador comes in today for week 6 Erbitux. His rash has not worsened and is really not an issue. The palpable lymph node in his left neck is now rodriguez martin sized. He has a bit of radiation reaction in his left cheek and late last week developed a abscess involving his left upper molar. He was able to push on the area and get it to drain and since then things have improved. He's not had any fever or chills. There is no further drainage and the area feels back to normal. He is continuing to eat and has not requiring the use of his feeding tube. He does have some fatigue but is still functional andeven did go horseback riding on the weekend although less than the usual duration. He is waking up at night with some discomfort and we discussed starting a Duragesic patch at a low dose over the weekend to see if it helps. He will continue to take when necessary breakthrough pain medications as required. Review of Systems Constitutional: Negative for fever, chills, activity change, mild fatigue and no unexpected weight change. HENT: He now has a mild sore throat on the left. No mouth sores except for a small lesion on the tip of his tongue and no trouble swallowing. Eyes: Negative. Respiratory: Negative for cough, shortness of breath and wheezing. Cardiovascular: Negative for chest pain, palpitations and leg swelling. Gastrointestinal: Negative for nausea except for that one instance on Thursday morning, and no vomiting, abdominal pain, diarrhea, constipation and abdominal distention. Genitourinary: Negative for dysuria and difficulty urinating. Musculoskeletal: Negative. Skin: Subtle actiniform rash in the scalp and on his cheeks. He has a scrotal rash is now under control and improved. Neurological: Negative. Hematological: Negative for adenopathy. Head: Normocephalic, without obvious abnormality, atraumatic Eyes: PERRL, conjunctiva/corneas clear, EOM's intact, fundi benign, both eyes Ears: Normal TM's and external ear canals, both ears Nose: Nares normal, septum midline, mucosa normal, no drainage or sinus tenderness Throat: Lips, mucosa with a radiation reaction on the left inner lower inner cheek, and tongue normal; teeth and gums normal except for a little bit of redness along the gumline of a left posterior upper molar Neck: Supple, symmetrical, trachea midline, there is a 3.5 cm node palpable in the left anterior cervical triangle it is flatter and definitely much smaller. thyroid: not enlarged, symmetric, no tenderness/mass/nodules, no [...] symmetric Skin: Skin color, texture, turgor normal, mild actiniform rash as described above Lymph nodes: Supraclavicular, and axillary nodes normal Neurologic: Normal Laboratory today is reviewed. White count is 10.0 hemoglobin 13.1 platelet count 251 ANC is 8200. CMP shows an albumin of 4.0 normal electrolytes potassium 4.1 creatinine of 0.9 magnesium of 1.9 and normal liver tests. Assessment/Plan: Salvador has a locally advanced squamous cell carcinoma of the base of the tongue with left cervical metastasis. He is tolerating the Erbitux exceptionally well and has had a marked response with over 80% reduction in his tumor mass by palpation in his left neck. His Erbitux rash is doing reasonably well and does not require any further intervention at this point. We'll go ahead with week 6 Erbitux today and see him back in a week with a CBC CMP and magnesium level prior to the anticipated week 7 of Erbitux.. his radiation therapy will extend into the first week of April and we'll make sure that he is ago from week 8 Erbitux with the protocol. My preference would be to continue the Erbitux completely through his radiation treatment. Because of the tooth infection I would like to have him on Keflex 500 by mouth 4 times a day for 10days. I think the infection is gone.it appears he still has a bit of gingivitis in the area and I would be hopeful that that will help maintain some tooth health posttreatment. We'll place him on a Duragesic patch 12.5 mcg / 3 days starting this weekend and escalate the dose if it's required when we see him next week. He'll let us know if issues or problems develop in the interim. documented in this encounter Procedure Notes * Provider, Scanning - 03/29/2012 4:28 PM EDTAssociated Order(s): SCAN DOC: LAB * Provider, Scanning - 03/25/2012 4:28 PM EDTAssociated Order(s): SCAN DOC: CHEMOTHERAPY documented in this encounter Plan of Treatment Upcoming Encounters Date Type Department Care Team (Late st Contact Info) Description 05/24/2025 11:00 AM EDT Office Visit Radiation Oncology at [address] [phone] Jesse Mcmahan MD [facility] [place] [address] documented as of this encounter Procedures Procedure Name Priority Date/Time Associated Diagnosis Comments LAB SCAN 03/29/2012 4:28 PM EDT CHEMOTHERAPY SCAN 03/25/2012 4:2 8 PM EDT documented in this encounter Results * SCAN DOC: LAB (03/29/2012 4:28 PM EDT) Narrative 03/29/2012 4:28 PM EDT Procedure Note Provider, Scanning - 03/29/2012 4:28 PM EDT Scanning Provider MEDIA MGR SCAN EXT O RDR/RSLT * SCAN DOC: CHEMOTHERAPY (03/25/2012 4:28 PM EDT) Narrative 03/25/2012 4:28 PM EDT Procedure Note Provider, Scanning - 03/25/2012 4:28 PM EDT Scanning Provider MEDIA MGR SCAN EXT O RDR/RSLT documented in this encounter Visit Diagnoses Diagnosis Oral infection- Primary Other and unspecified diseases of the oral soft tissues Pain Generalized pain Head and neck cancer Malignant neoplasm of head, face, and neck CINV (chemotherapy-induced nausea and vomiting) Nausea with vomiting documented in this encounter Care Teams Learning Support Resource Room Teacher Relationship Specialty Start Date End Date Bj Alves MD [address] [place] [phone] PCP - General 06/25/10 04/02/23 documented as of this encounter
--- OUTSIDE RECORDS SUMMARY | 2024-08-01 15:30 | XMS_ITS | Encounter Summary ---
Author Organization [facility] [place] [address] Care Team Providers Care Water And Fire Technician Name Role Phone Ash Hernandez MD Primary Care Provider [phone] Reason for Visit * Reason Comments Radiation Follow-up Encounter Details Date Type Department Care Team (Late st Contact Info) Description 04/30/2012 1:00 PM EDT Follow-Up Radiation Oncology at [address] [phone] Jesse Mcmahan MD [facility] [place] [address] Cancer of base of tongue (Primary Dx) [...] Sign Reading Time Taken Comments Blood Pressure 142/91 04/30/2012 12:56 PM EDT Pulse 80 04/30/2012 12:56 PM EDT Temperature 36.1 ??C (97 ??F) 04/30/2012 12:56 PM EDT Respiratory Rate 16 04/30/2012 12:56 PM EDT Oxygen Saturation 99% 04/30/2012 12:56 PM EDT Inhaled Oxygen Concentration - - Weight 91.6 kg (202 lb) 04/30/2012 12:56 PM EDT Height - - Body Mass Index 29.82 04/20/2012 11:56 AM EDT documented in this encounter Progress Notes * Jesse Mcmahan MD - 04/30/2012 12:56 PM EDT FOLLOW UP VISIT NOTE Primary MD: ASH HERNANDEZ MD Referring MD: Rio Graves Other Involved Physicians: Butch Catalan MD Focused Problem List: ?? 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 Presentation: ?? Hx. 1 PPD x 38 yrs. Quit 08/2011. Developed odynophagia early 11/2011, abx did not improve, . Referred to ENT. He does note some coughing in the morning ove the past year. ?? Staging: ?? 12/09/11 CT H&N with contrast ([facility]): Mixed attenuation mass with lare low density areas suggesting necrotic change present deep to anterior aspect L SCM. Mass smoothly marginated, max 3.3 x 5.2 cm. ?? 11/27/11 PET-[place] Despite premedication, severe claustrophobia allowed this can [...] 04/06/12 Interval History: Sebastian Wyatt returns for follow ~ 3 wks after completing RT. Skin: Comments: Desquamation resolved, skin erythema essentially resolved. Now hyperpigmentation and dryness. Current Regimen: Aquaphor BID 0 1 2 3 4 No change from baseline Follicular, faint or dull erythema/ epilation/dry desquamation/ decreased sweating Tender or bright erythema, patchy moist desquamation/ moderate edema Confluent, moist desquamatiom other than skin folds, pitting edema Ulceration, hemorrhage, necrosis Xerostomia: Comments: Ageusia, thickened saliva 0 1 2 3 4 No change from baseline Sx without dietary alteration Moderate to complete dryness; thick, sticky saliva; markedly altered taste Inability to aliment orally, TPN or PEG indicated NA Mucositis: Comments: Pain modestly controlled, rated 1/10 at baseline, worse with swallowing to 6-8/10. Overall improved control with 50 mcg Current Pain Regimen: Oxycodone prn, Duragesic 50 mcg. PE: extensive patchy mucositis oropharynx but slightly improved. No thrush. 0 1 2 3 4 No change from baseline Injection/ may experience mild pain not requiring analgesic Patchy mucositis & analgesia indicated, altered po intake Confluent mucosits; severe pain, unable to adequatelytake nutrition po Life threatening consequences Dysphagia: Alimentation: 1. By mouth: only liquids by mouth 2. via PEG: per ore puncher TFs overnight, tolerating well. . 0 1 2 3 4 No change from baseline Sx without dietary alteration Moderate sx, altered oral intake Inability toaliment orally, TPN or PEG indicated NA Weight : 228 lbs initial Change: 203 => 202 Larynx: Comments: 0 1 2 3 4 No change from baseline Mild or intermittent voice change; fully understandable, self- resolves Moderate or persistent voice change, able to vocalize; otalgia/ sore throat not requiring narcotic Whispered speech, throat pain/otalgia requiring narcotic Marked dyspnea, stridor or hemoptysis with trach or intubation necessary Other: ?? Nausea: Zofran, compazine. Nausea controlled. ?? Insomnia: ativan 0.5 mg, ambien. . VS: Filed Vitals: 04/30/12 1256 BP: 142/91 Pulse: 80 Temp: 36.1 ??C (97 ??F) Resp: 16 Impression: Improving skin and mucosal toxicity, acceptable pain control. No thrush evident. Tolerating TFs well, weight increased. Plan: ?? Pain control: ?? Oxycodone ?? Duragesic to 50 mcg daily ?? Skin: ?? Aquaphor BID ?? Mucositis: ?? Pain control: see above ?? Oral hygiene consisting of baking soda/salt rinse at least 8 times daily ?? BMX prn ?? Alimentation: ore puncher following ?? TFs overnight ?? Nausea: ?? Compazine prn ?? Zofran prn ?? FU: follow up bi-weekly. documented in this encounter Plan of Treatment Upcoming Encounters Date Type Department Care Team (Late st Contact Info) Description 05/24/2025 11:00 AM EDT Office Visit Radiation Oncology at [address] [phone] Jesse Mcmahan MD [facility] [place] [address] documented as of this encounter Visit Diagnoses Diagnosis Cancer of base of tongue- Primary Malignant neoplasm of base of tongue documented in this encounter Care Teams Water And Fire Technician Relationship Specialty Start Date End Date Ash Hernandez MD [address] [place] [phone] PCP - General 06/25/10 04/02/23 documented as of this encounter
--- OUTSIDE RECORDS SUMMARY | 2024-08-01 15:30 | XMS_ITS | Encounter Summary ---
Author Organization [facility] [place] [address] Care Team Providers Care Mine Boss Name Role Phone Ash Hernandez MD Primary Care Provider [phone] Reason for Visit * Reason Comments Radiation Follow-up Encounter Details Date Type Department Care Team (Late st Contact Info) Description 04/23/2012 11:30 AM EDT Follow-Up Radiation Oncology at [address] [phone] Jesse Mcmahan MD [facility] [place] [address] Cancer of base of tongue (Primary Dx) [...] Sign Reading Time Taken Comments Blood Pressure 129/85 04/23/2012 10:56 AM EDT Pulse 96 04/23/2012 10:56 AM EDT Temperature 35.7 ??C (96.2 ??F) 04/23/2012 10:56 AM E DT Respiratory Rate 16 04/23/2012 10:56 AM EDT Oxygen Saturation 98% 04/23/2012 10:56 AM EDT Inhaled Oxygen Concentration - - Weight 92.3 kg (203 lb 8 oz) 04/23/2012 10:56 AM EDT Height - - Body Mass Index 30.04 04/20/2012 11:56 AM EDT documented in this encounter Progress Notes * Jesse Mcmahan MD - 04/23/2012 10:46 AM EDT FOLLOW UP VISIT NOTE Primary MD: [...] History: Sebastian Wyatt returns for follow ~ 2 wks after completing RT. His Mg and K were within acceptable limits from last weeks lab work. Today he notes improvement in his ability to implement TFs, andhis weight has stabilized. He notes that his pain has not been well controlled over the past week. Skin: Comments: Desquamation resolved, skin erythema improving Current Regimen: Aquaphor BID 0 1 2 [...] or PEG indicated NA Mucositis: Comments: Pain poorly controlled, rated 6/10 at baseline, worse with swallowing. Current Pain Regimen: Oxycodone prn, Duragesic 25 mcg PE: extensive patchy mucositis oropharynx. No thrush. 0 1 2 3 4 No change from baseline Injection/ may experience mild pain not requiring analgesic Patchy mucositis & analgesia indicated, altered po intake Confluent mucosits; severe pain, unable to adequatelytake nutrition po Life threatening consequences Dysphagia: Alimentation: 1. By mouth: only liquids by mouth 2. via PEG: per production cost estimator TFs overnight, tolerating well. . 0 1 2 3 4 No change from baseline Sx without dietary alteration Moderate sx, altered oral intake Inability toaliment orally, TPN or PEG indicated NA Weight : 228 lbs initial Change: 200 => 203 Larynx: Comments: 0 1 2 3 4 No change from baseline Mild or intermittent voice change; fully understandable, self- resolves Moderate or persistent voice change, able to vocalize; otalgia/ sore throat not requiring narcotic Whispered speech, throat pain/otalgia requiring narcotic Marked dyspnea, stridor or hemoptysis with trach or intubation necessary Other: ?? Nausea: Zofran, compazine. Nausea controlled. ?? Insomnia: ativan 0.5 mg, ambien. Not sleeping well, perhaps secondary to pain. VS: Filed Vitals: 04/23/12 1056 BP: 129/85 Pulse: 96 Temp: 35.7 ??C (96.2 ??F) Resp: 16 Impression: Improving skin toxicity, but poor pain control. No thrush evident. Tolerating TFs well,weight increased. Plan: ?? Pain control: ?? Oxycodone ?? INCREASE Duragesic to 50 mcg daily ?? Skin: ?? Aquaphor BID ?? Mucositis: ?? Pain control: see above ?? Oral hygiene consisting of baking soda/salt rinse at least 8 times daily ?? BMX prn ?? Alimentation: production cost estimator following ?? TFs overnight ?? Nausea: ?? Compazine prn ?? Zofran prn ?? FU: follow up weekly. documented in this encounter Plan of Treatment Upcoming Encounters Date Type Department Care Team (Late st Contact Info) Description 05/24/2025 11:00 AM EDT Office Visit Radiation Oncology at [address] [phone] Jesse Mcmahan MD [facility] [place] [address] documented as of this encounter Visit Diagnoses Diagnosis Cancer of base of tongue- Primary Malignant neoplasm of base of tongue documented in this encounter Care Teams Mine Boss Relationship Specialty Start Date End Date Ash Hernandez MD [address] [place] [phone] PCP - General 06/25/10 04/02/23 documented as of this encounter
--- OUTSIDE RECORDS SUMMARY | 2024-08-01 15:30 | XMS_ITS | Encounter Summary ---
Author Organization [facility] [place] [address] Care Team Providers Care Client Operations Manager Name Role Phone Ash Hernandez MD Primary Care Provider [phone] Reason for Visit * Reason Comments Radiation Treatment Encounter Details Date Type Department Care Team (Late st Contact Info) Description 03/12/2012 8:15 AM EDT Follow-Up Radiation Oncology at [address] [phone] Jesse Mcmahan MD [facility] [place] [address] Cancer of base of tongue (Primary Dx) [...] Sign Reading Time Taken Comments Blood Pressure 121/77 03/12/2012 8:00 AM EDT Pulse 72 03/12/2012 8:00 AM EDT Temperature 37 ??C (98.6 ??F) 03/12/2012 8:00 AM EDT Respiratory Rate 16 03/12/2012 8:00 AM EDT Oxygen Saturation 97% 03/12/2012 8:00 AM EDT Inhaled Oxygen Concentration - - Weight 102.3 kg (225 lb 8 oz) 03/12/2012 8:00 AM EDT Height - - Body Mass Index 33.29 03/09/2012 9:55 AM EDT documented in this encounter Progress Notes * Jesse Mcmahan MD - 03/12/2012 8:45 AM EDT ON TREATMENT VISIT NOTE Primary MD: ASH HERNANDEZ MD [...] Staging: ?? 12/09/11 CT H&N with contrast ([facility]): Mixed attenuation mass with lare low density areas suggesting necrotic change present deep to anterior aspect L SCM. Mass smoothly marginated, max 3.3 x 5.2 cm. ?? 11/27/11 PET-CT ([facility]): Despite premedication, severe claustrophobia allowed this can [...] Enrolled on RTOG 1016, randomized to cetuximab arm Identification: Sebastian Wyatt is currently undergoing radiation therapy at [facility]. Current treatment dose: 30 Gy in 15 fractions. Anticipated total dose: 70 Gy in 35 fractions. Evaluation of Port Verification Films: done Changes in medical condition: Skin: Comments: Papular rash on face and neck, moderate, c/w cetuximab rash. No RT- specific skin toxicity. Current Regimen: Jeans cream/Aquaphor BID 0 1 2 3 4 No change from baseline Follicular, faint or dull erythema/ epilation/dry desquamation/ decreased sweating Tender or bright erythema, patchy moist desquamation/ moderate edema Confluent, moist desquamatiom other than skin folds, pitting edema Ulceration, hemorrhage, necrosis Xerostomia: Comments: Ageusia, mildly thickened saliva 0 1 2 3 4 No change from baseline Sx without dietary alteration Moderate to complete dryness; thick, sticky saliva; markedly altered taste Inability to aliment orally, TPN or PEG indicated NA Mucositis: Comments: Increasing pain, still able to swallow. Had one day where he felt her required oxycodone,but still eating without it primarily. Current Pain Regimen: tylenol prn, oxycodone prn (used only once) PE: patchy mucositis posterior oropharynx. No thrush. 0 1 2 3 4 No change from baseline Injection/ may experience mild pain not requiring analgesic Patchy mucositis & analgesia indicated, altered po intake Confluent mucosits; severe pain, unable to adequatelytake nutrition po Life threatening consequences Dysphagia: Alimentation: 1. By mouth: all by mouth, switching to softer foods 2. via PE 1 2 3 4 No change from baseline Sx without dietary alteration Moderate sx, altered oral intake Inability toaliment orally, TPN or PEG indicated NA Weight : 228 lbs initial Change: 228 => 225 Larynx: Comments: 0 1 2 3 4 No change from baseline Mild or intermittent voice change; fully understandable, self- resolves Moderate or persistent voice change, able to vocalize; otalgia/ sore throat not requiring narcotic Whispered speech, throat pain/otalgia requiring narcotic Marked dyspnea, stridor or hemoptysis with trach or intubation necessary Other: ?? Anxiety/claustrophobia: lorazepam prn VS: Filed Vitals: 03/12/12 0800 BP: 121/77 Pulse: 72 Temp: 37 ??C (98.6 ??F) Resp: 16 Impression: ?? Moderate toxicity, with increasing mucositis, xerostomia. Mild weight loss, still not interestedin using PEG yet, followed by masticator. Plan: ?? Continue RT per prescription ?? Pain control: ?? Tylenol prn ?? Oxycodone prn ?? Skin: ?? Jeans cream BID ?? Mucositis: ?? Pain control: see above ?? Oral hygiene consisting of baking soda/salt rinse at least 8 times daily ?? BMX prn ?? Alimentation: masticator following ?? Weight slightly decreased, all by mouth at this time documented in this encounter Procedure Notes * Provider, Scanning - 03/15/2012 4:45 PM EDTAssociated Order(s): SCAN DOC: LAB documented in this encounter Plan of Treatment Upcoming Encounters Date Type Department Care Team (Late st Contact Info) Description 05/24/2025 11:00 AM EDT Office Visit Radiation Oncology at [address] [phone] Jesse Mcmahan MD [facility] [place] [address] documented as of this encounter Procedures Procedure Name Priority Date/Time Associated Diagnosis Comments LAB SCAN 03/15/2012 4:45 PM EDT documented in this encounter Results * SCAN DOC: LAB (03/15/2012 4:45 PM EDT) Narrative 03/15/2012 4:45 PM EDT Procedure Note Provider, Scanning - 03/15/2012 4:45 PM EDT Scanning Provider MEDIA MGR SCAN EXT O RDR/RSLT documented in this encounter Visit Diagnoses Diagnosis Cancer of base of tongue- Primary Malignant neoplasm of base of tongue documented in this encounter Care Teams Client Operations Manager Relationship Specialty Start Date End Date Ash Hernandez MD [address] [place] [phone] PCP - General 06/25/10 04/02/23 documented as of this encounter
--- OUTSIDE RECORDS SUMMARY | 2024-08-01 15:30 | XMS_ITS | Encounter Summary ---
Author Organization [place] [address] Care Team Providers Care Senior Technical Recruiter Name Role Phone Bj Alves MD Primary Care Provider [phone] Encounter Details Date Type Department Care Team (Latest Contact Info) Description 03/19/2012 Unscheduled Encounter Hematology Oncology at [address] [phone] Sabine Nash, MANJU [facility] [place] [address] Dietary surveillance and counseling (Primary Dx) Social [...] Progress Notes * Sabine Nash RD - 03/19/2012 11:42 AM EDT [facility] Dietitian Follow Up Seen by: Gisele Nash MS, RD, LD Patient, Dx, and Tx: 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 Patient has been enrolled on RTOG 1016 and randomized to the radiation therapy plus Erbitux arm. Assessment: Ht: 175.3 cm Wt: 102.967 k olvin 03/19/12; INCREASE Previous Wts: 101.152 kg on 03/16/12;1.8% Decrease in one week; Moderate 104 kg: Stable/Increased 103.5 kg on 03/02/12: Stable 103.5 kg on 02/24/12 Initial Wt: 103 kg on 02/17/12 Kcal needs: 25-30 kcals at Adj BW: 2000 - 2500 Protein needs: @ 1.3 - 1.5 g/kg Adj: 108- 125 Fluid needs: 2500 - 3000 mls Labs: reviewed Meds: reviewed Food intake as compared to normal: ____Unchanged ____Increased __X__ Decreased It's that prednisone, I feel like I can pig out! But I do find that I need things to be room temperature to taste them. Am: Orgain and 1/2 doughnut with coffee Noon: Tried hummus, but tasteless and couldn't eat it. Also had other stuff, but can't recall. PM: Cheeseburger with mashed pots and kale Snacks: only when he feels hungry, drinking prune juice to help with bowels since started taking Jocelin Supplements: makes milkshake w/ blueberries, banana, and almond milk, and vanilla kosovan yogurt, mayput some banana pudding ice cream in it, too. Typically has QOD Tried Orgain: It's pretty tasty, has purchased a couple of cased G-Tube: flushing daily Teas, vitamins, or other nutritional supplements: D3 Food allergies or avoidances: [facility] Appetite: 7/10 scale. This has decreased, was 8-9/10 Nausea: says he feels a little stomach churning and he instantly takes an compazine. Vomiting: denies Chewing: denies Swallowing: It can be painful, Jocelin on board, BMX on board, but says this doesn't really numb his throat, but it does numb everything else. Has also noticed he can choke on saliva, but can cough Xerostomia: +, does soda/salt rinses throughout the day, uses Biotenen. Purchased Theramouth, uses Ayrs gel for sleeping Taste Changes: +, decreased significantly. Tip of tongue is numb and side is swollen Bowels: regular a little on the loose side, going daily, currently not taking anything for them Food availability/purchasing, meal planning and preparation: He does this, doesn't cook very well and he prefers her to come into the kitchen. Depression: n/a, affect continues to be very optimistic and upbeat Social Support: States it is wonderful. and dtr (10 YO) very supportive. Economic Issues: none Physical Activity: Walks up 5 flights of stairs 4-6 times/day. Doesn't use elevator, walks frequently to take breaks. Finding excuses to walk stairs more to increase activity. Feeling fatiged more than usual, gets winded more easily, but recovery is quick. Level of Motivation/Readiness to Change: Action Nutrition Diagnosis: Hypermetabolism related to tongue cancer as evidenced by decrease of 10% weight loss in 3 mos. It is difficult to determine how much of his weight loss was due to positive changes in his diet after receiving his dx vs. Unintentional weight loss 2' his cancer. However, since initiation of chemo/RT, Salvador has just recently started to lose weight. He continuesto be in great spirits and eating is going well, but I suspect intake is decreasing and kcal and protein needs continue to rise as evidenced by his weight loss and we discussed this. He continues to be very diligent with watching his weight and strives to delay using the gtube for as long as possible. We discussed that this week and the weeks to come will start to bring issues to the surface and swallowing is expected to be compromised. He has noted that over the weekend, swallowing become very painful . We dicussed increasing his supplements (Orgain and high romina/pro shakes) from every other day, to at least twice daily. Provided recipes shakes and other softer food ideas, as he is currently able to remain p.o. We also discussed bowel regularity, as he has started to take oxycodone, prn and has found this leads to constipation and prune juice is not relieving it. Pt with painful mouth sores and this is starting to impact his oral intake. Met with Dr. Limon today and he reviewed timing of pain meds for meals and encouraged small, frequent meals throughout the day. Supplement snacks with BML to help control pain. Oral intake has become compromised, gtube will need to be utilized to meet kcal and protein needs. Recommend the following: -- 9 cans Fibersource H/N via gravity bag to provide: 2250 kcals, 121.5 g pro, and 1827 mls free water/day. -- Pt instructed to flush tube with 60 mls before and after each feeding. Pt will need and add'l 313 to 813 mls of water/day (1.5 - 3.5 cups) taken p.o. Or via tube. -- The above recommendations meet 100% of pt's APPLICATION SERVICES MANAGER's for kcal, vitamins, and minerals. -- Recommend [...] Clean Fifteen F& V list -- High Romina/Pro milk shake recipes -- Power pudding recipe Other: [facility] to [facility] for [facility] supply delivery. Monitoring and Evaluation: Will follow up with Mr. Wyatt in weekly while he is going through treatment. documented in this encounter Plan of Treatment Upcoming Encounters Date Type Department Care Team (Late st Contact Info) Description 05/24/2025 11:00 AM EDT Office Visit Radiation Oncology at [address] [phone] Jesse Mcmahan MD [facility] [place] [address] documented as of this encounter Visit Diagnoses Diagnosis Dietary surveillance and counseling- Primary documented in this encounter Care Teams Senior Technical Recruiter Relationship Specialty Start Date End Date Bj Alves MD [address] [place] [phone] PCP - General 06/25/10 04/02/23 documented as of this encounter
--- OUTSIDE RECORDS SUMMARY | 2024-08-01 15:30 | XMS_ITS | Encounter Summary ---
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 Mr. Modi consented to participate in RTOG 1016, signed consent and was subsequently randomized to ARM 2: RT with Cetuximab. Mr Wyatt began Day 1 Cetuximab Loading Dose @ 400 mg/m2 on 02/17/2012. Mr Wyatt began Day 1 RT on 02/24/2012. Chemo call to pt to assess status Subjective: I have a rash on my scalp, face, and between my legs. The rash doesn't hurt or itch; the hydrocortisone cream works wonders. I am a little fatigued and occasionally need to leave work and go home and rest. I'm doing better with my anxiety and claustrophobia I feel with the treatment mask. I have little sores on my tongue I have lost about 80% of my ability to taste food but I am still eating. The right side of my throat hurts occasionally 3/10, but the liquid tylenol takes the pain away. My mouth feels dry. In discussion with Mr. Wyatt, he denies fever, nausea, vomiting or any other signs/symptoms of drug reaction. Salvador also states that he not taking any sedation or narcotics at this time; the liquidtylenol abates his pain; Salvador attributes the wonder staff at [facility] with helping him overcome his treatment anxiety/claustrophobia. Toxicity Assessment EVENT CTCAE GRADE ATTRIBUTION TO TREATMENT Onset >/= Grade 3 Resolution < Grade 3 Agitation 1 likely Fatigue 2 likely Pain 1 likely Dry Mouth 1 likely Rash (acneiform) 1 likely Dysgeusia 1 likely Education Provided: On-going discussion and review of potential side effects of Cetuximab including drug rash with patient. Symptom management Plan: 1. Pt will continue with protocol treatment per RTOG 1016 ARM 2. 2. Pt will continue open dialogue with PCP and other providers re: agitation control 3. Pt understands and agrees with plan and knows to call the [place], [place]. clinic with anyfurther questions or concerns. 4. Mr Modi also knows that he can contact me with any protocol questions or concerns. Salud Amaro INTERIOR DESIGN PROGRAM CHAIR CCRP RTOG Research Nurse documented in this encounter Plan of Treatment Upcoming Encounters Date Type Department Care Team (Late Contact Info) Description 05/24/2025 11:00 AM EDT Office Visit Radiation Oncology at [address] [phone] Jesse Mcmahan MD [facility] RADIATION ONCOLOGY [place] [phone] documented as of this encounter Visit Diagnoses Not on filedocumented in this encounter Care Teams Electronic Tech Relationship Specialty Start Date End Date Bj Alves MD [address] [place] [phone] PCP - General 06/25/10 04/02/23 documented as of this encounter
--- OUTSIDE RECORDS SUMMARY | 2024-08-01 15:30 | XMS_ITS | Encounter Summary ---
Author Organization [facility] Address [facility] [place] [address] Care Team Providers Care Preventive Medicine Specialist Name Role Phone Bj Alves MD Primary Care Provider [phone] Encounter Details Date Type Department Care Team (Late st Contact Info) Description 04/20/2012 12:00 PM EDT Ancillary Appointment Hematology Oncology at [address] [phone] Sabine Nash RD [facility] [place] [address] Social History Tobacco Use Types Packs/Day Years [...] Progress Notes * Sabine Nash, MANJU - 04/20/2012 12:15 PM EDT [facility] Dietitian Follow Up Seen by: Gisele Nash MS, RD, LD Patient, Dx, and Tx: Pt had a rough weekend. 04/02/12 went to [facility] ED. Was not admitted, given IVF and ABX and sent home. Pt was admitted to [facility] on Thursday,04/10/12. He was discharged on , 04/14/12. 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 Patient has been enrolled on RTOG 1016 andrandomized to the radiation therapy plus Erbitux arm. Assessment: Ht: 175.3 cm Wt: 92.3 kg on 04/20/12: Increase Previous Wts: 91.27 kg on 04/16/12: Decrease; 2.4% in [...] normal: ____Unchanged _X___Increased ____ Decreased P.O. Limited. Has had scrambled eggs with cheese, vegetable soup (nontomato- based), mac and cheese, water G-Tube: Nocturnal pump, runs at 200 cc/10 hours. Flush with 100 cc of water before and after feeding Teas, vitamins, or other nutritional supplements: D3 Food allergies or avoidances: knfa Appetite none. Nausea: Compazine and zofran on board and takes when needed Vomiting: denies Chewing: denies Swallowing: Painful,02/09. Jocelin, fentynal patch on board. BMX on board, but says this doesn't reallynumb his throat, but it does numb everything else. Has also noticed he can choke on saliva, but cancough Mouthsores: present, left side more painful than right. Throat is raw Xerostomia: +, does soda/salt rinses throughout the day, uses Biotene. Purchased Theramouth, uses Ayrs gel for sleeping Taste Changes: +, decreased significantly. Tip of tongue is numb and side is swollen Bowels: Going daily. Food availability/purchasing, meal planning and preparation: He does this, doesn't cook very well and he prefers her to come into the kitchen. Depression: n/a, affect continues to be very optimistic and upbeat Social Support: States it is wonderful. and dtr (10 YO) very supportive. Economic Issues: none Physical Activity/Fatigue: Cat napping throughout the day. No longer working. Level of Motivation/Readiness to Change: Action Nutrition [...] to be added back to his routine. He is hesitant to continue them 2/2 the inconvenience factor, as he in discharge, he was instructedto frequently check residuals. Josselyn Peters RN and I discussed that this doesn't need to continue. Also we informed him that he can add more formula in his bags to allow for longer durations of sleep without having to put more formula in the pump. He was very pleased with this information. Oral intake has become compromised, gtube is being utilized to meet kcal and protein needs. Recommend the following: -- 8 cans Fibersource H/N via gravity bag to provide: 2400 kcals, 108 g pro, and 1624 mls free water/day. -- Pt instructed to flush tube with 60 mls before and after each feeding. Pt will need and add'l 313 to 813 mls of water/day (1.5 - 3.5 cups) taken p.o. Or via tube. -- The above recommendations meet 100% of pt's FACILITIES FLIGHT CHECK PILOT's for kcal, vitamins, and minerals. -- Recommend [...] recipe Other: Orders will be faxed to [facility] for home supply delivery. Monitoring and Evaluation: Will follow up with Mr Nayan Wyatt in weekly while he is going through treatment. documented in this encounter Plan of Treatment Upcoming Encounters Date Type Department Care Team (Late st Contact Info) Description 05/24/2025 11:00 AM EDT Office Visit Radiation Oncology at [address] [phone] Jesse Mcmahan MD [facility] DR [place] [address] documented as of this encounter Visit Diagnoses Not on filedocumented in this encounter Care Teams Preventive Medicine Specialist Relationship Specialty Start Date End Date Bj Alves MD [address] [place] [phone] PCP - General 06/25/10 04/02/23 documented as of this encounter
--- OUTSIDE RECORDS SUMMARY | 2024-08-01 15:30 | XMS_ITS | Encounter Summary ---
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 Post Chemo call to pt to assess status Subjective: My rash is starting to fade a little bit I'm using triple antibiotic ointment on my neck and my skin there isn't cracked or oozing. It's better than Jeans Cream. I'm really tired now. Yasmine Sierra increased the fentanyl patch strength and I only need to take the break-through pain medication now once or twice a day so far. I can swallow some soft food and liquids only now.. I 'm using my G-tube every day for feedings. My saliva is thick; no better, no worse. Objective: NA- telephone interview In discussion with Mr. Wyatt, he denies fever, nausea, vomiting or any other signs/symptoms of drug reaction. Toxicity Assessment EVENT CTCAE GRADE ATTRIBUTION TO TREATMENT Onset >/= Grade 3 Resolution < Grade 3 Fatigue 2 likely Pain 2 likely 03/17/2012 03/30/2012 Dry Mouth 1 likely Rash (acneiform) 1 likely Dysphagia 3 likely 03/31/2012 Dermatitis Radiation 1 Dysgeusia 2 likely Education Provided: On-going discussion and review of potential side effects of Cetuximab including drug rash with patient. Symptom management; including need to rest due to fatigue, constipation, etc. Nutritional management: Pt knows to monitor intake and weight; pt is using tube feeds daily Plan: 1. Pt will continue with protocol treatment per RTOG 1016 ARM 2. 2. Pt understands and agrees with plan and knows to call the [place], [place]. clinic with anyfurther questions or concerns. 3. Mr Modi also knows that he can contact me with any protocol questions or concerns. Salud Amaro AIRPORT TRAFFIC CONTROLLER CCRP RTOG Research Nurse documented in this encounter Plan of Treatment Upcoming Encounters Date Type Department Care Team (Late st Contact Info) Description 05/24/2025 11:00 AM EDT Office Visit Radiation Oncology at [address] [phone] Jesse Mcmahan MD [facility] [place] [address] documented as of this encounter Visit Diagnoses Not on filedocumented in this encounter Care Teams Veneer Trimmer Relationship Specialty Start Date End Date Bj Alves MD [address] [place] [phone] PCP - General 06/25/10 04/02/23 documented as of this encounter
--- OUTSIDE RECORDS SUMMARY | 2024-08-01 15:30 | XMS_ITS | Encounter Summary ---
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 I still use the hydrocortisone cream when is bothers me and it works wonders. I'm definitely feeling the effects of treatment now and have significantly cut back on work. I'm getting more tired now. Thursday, I couldn't hardly get out of bed I'm going to start the fentanyl patch when it comes from the pharmacy maybe tomorrow. The sores on my tongue are VERY painful, especially when I try to eat. I would say 8/10 at least I can swallow soft food and liquids only now.. I 'm using my G-tube every day except for chemo day for hydration and it makes me feel much better My saliva is getting thicker and sticky but I can manage it still. My weight seems stable again. Objective: NA- telephone interview In discussion with Mr. Wyatt, he denies fever, nausea, vomiting or any other signs/symptoms of drug reaction. Salvador states that he is taking his liquid oxycodone 10 ml more about every 4 hours now. Toxicity Assessment EVENT CTCAE GRADE ATTRIBUTION TO TREATMENT Onset >/= Grade 3 Resolution < Grade 3 Agitation 1 likely Fatigue 2 likely Pain 3 likely 03/17/2012 Dry Mouth 1 likely Rash (acneiform) 1 likely Constipation 1 likely Dysgeusia 1 likely Education Provided: On-going discussion and review of potential side effects of Cetuximab including drug rash with patient. Symptom management; including need to rest due to fatigue, constipation, etc. Nutritional management: Pt knows to monitor intake and weight; pt has tube feeds available if needed. Plan: 1. Pt will continue with protocol treatment per RTOG 1016 ARM 2. 2. Pt understands and agrees with plan and knows to call the [place], [place]. clinic with anyfurther questions or concerns. 3. Mr Modi also knows that he can contact me with any protocol questions or concerns. Salud Amaro DIALYSIS EQUIPMENT TECHNICIAN CCRP RTOG Research Nurse documented in this encounter Plan of Treatment Upcoming Encounters Date Type Department Care Team (Late st Contact Info) Description 05/24/2025 11:00 AM EDT Office Visit Radiation Oncology at [address] [phone] Jesse Mcmahan MD [facility] [place] [address] documented as of this encounter Visit Diagnoses Not on filedocumented in this encounter Care Teams Career Services Officer Relationship Specialty Start Date End Date Bj Alves MD [address] [place] [phone] PCP - General 06/25/10 04/02/23 documented as of this encounter
--- OUTSIDE RECORDS SUMMARY | 2024-08-01 15:30 | XMS_ITS | Encounter Summary ---
[facility] [place] [address] Care Team Providers Care Roundhouse Firer/Fireman Name Role Phone Bj Alves MD Primary Care Provider [phone] Reason for Visit * Reason Comments Head And Neck Cancer Encounter Details Date Type Department Care Team (Late st Contact Info) Description 04/06/2012 10:30 AM EDT Follow-Up Hematology Oncology at [address] [phone] Rakesh Underwood MD Head and neck cancer (Primary Dx) [...] Sign Reading Time Taken Comments Blood Pressure 134/87 04/06/2012 9:09 AM EDT Pulse 111 04/06/2012 9:09 AM EDT Temperature 37.7 ??C (99.9 ??F) 04/06/2012 9:09 AM ED T Respiratory Rate 16 04/06/2012 9:09 AM EDT Oxygen Saturation 95% 04/06/2012 9:09 AM EDT Inhaled Oxygen Concentration - - Weight 94.3 kg (208 lb) 04/06/2012 9:09 AM EDT Height 175.3 cm (5' 9.02) 04/06/2012 9:09 AM ED T Body Mass Index 30.7 04/06/2012 9:09 AM EDT documented in this encounter Progress Notes * Rakesh Underwood MD - 04/06/2012 9:53 AM EDT Diagnosis: 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 Patient has been enrolled on RTOG 1016 andrandomized to the radiation therapy plus Erbitux arm. Subjective: Salvador comes in today for week 8 Erbitux. This past Thursday when he was here developed a fever to 103??. He went to the emergency room in [place] for evaluation. They did a thorough evaluation including a chest x-ray and UA. No obvious site of infection was found and his temperature had come down in the 99?? range. He was switched to clindamycin which he is continued. Over the weekend he has not had any further high temperatures but rather has run a low- grade temperature between 99 and 100??. Histhroat continues to be sore. He continues to have trouble sleeping because of the discomfort. He isusing his feeding tube some but is able to take in much orally. He does not think he is dehydrated and has been able to keep his fluids up. Exam and laboratory would tend to agree with this. The painmedications are not completely getting rid of the discomfort which is still a reasonably significant however he is taking some breakthrough medication now and that does seem to be helping. Other thanthroat soreness he is not really having any other discomfort. Review of Systems Constitutional: Negative for fever, chills, activity change, moderate fatigue and no unexpected weight change. HENT: He now has a severe sore throat on the left with some mouth sores Eyes: Negative. Respiratory: Negative for cough, shortness of breath and wheezing. Cardiovascular: Negative for chest pain, palpitations and leg swelling. Gastrointestinal: Negative for nausea except for that one instance on Thursday morning, and no vomiting, abdominal pain, diarrhea, constipation and abdominal distention. Genitourinary: Negative for dysuria and difficulty urinating. Musculoskeletal: Negative. Skin: Subtle actiniform rash in the scalp and on his cheeks. There is a actiniform rash on his neck. Neurological: Negative. Hematological: Negative for adenopathy. Head: Normocephalic, without obvious abnormality, atraumatic performance status may be 80% instead of 70% as recorded by nursing. Eyes: PERRL, conjunctiva/corneas clear, EOM's intact, fundi benign, both eyes Ears: Normal TM's and external ear canals, both ears Nose: Nares normal, septum midline, mucosa normal, no drainage or sinus tenderness Throat: Lips, mucosa with a radiation reaction on the left inner lower inner cheek, and tongue alsonow has some involvement l; teeth and gums normal except for a little bit of redness along the gumline of a left posterior upper molar which has not changed and in retrospect may be part of the radiation reaction. All these changes are worse than the one week ago. Neck: Supple, symmetrical, trachea midline, there is a normal size lymph node in the left neck where the original palpable node was noted. The left neck mass has resolved.. thyroid: not enlarged, symmetric, no tenderness/mass/nodules, no [...] normal, mild actiniform rash as described above is subtly worse today than a week ago there is definitely more rash in the skin folds of the neck. Lymph nodes: Supraclavicular, and axillary nodes normal Neurologic: Normal Laboratory today is reviewed. His creatinine is 0.9 BUN of 8 glucose 128 albumin 2.9 electrolytes are normal with potassium 3.7 and a magnesium of 1.9. CBC shows a white count of 8.0 hemoglobin 13.3 hematocrit 40.6 platelet count of 318 ANC is 6.54. Review of the evaluation at [facility] showed there was no evidence of pyuria with nitrate negative. Blood cultures and urine cultures are negative so far. Chest x-ray was reviewed and other than some atelectasis he did not have any evidence of pneumonitis.. Assessment/Plan: Salvador has a locally advanced squamous cell carcinoma of the base of the tongue with left cervical metastasis. He is tolerating the Erbitux exceptionally well and has had a marked response with 100% reduction in his tumor mass by palpation in his left neck. His Erbitux rash is doing reasonably well and does not require any further intervention at this point. Although it has increased slightly. We'l l go ahead with week 8 Erbitux today which is his final dose. Will arrange for daily hydration overthe next week although he is not dehydrated he might benefit from this. I'll leave it to him however whether he wants to make the drive down from home to get this since he is actually keeping himselfwell hydrated. I discussed things with radiation oncology. He will be done with his treatment on . We'll then arrange for weekly followup for symptom control after today's visit. As far as his fever goes I suspect he may have had an early aspiration episode. His x-ray however was clear and the clindamycin seems to have Things under control so I don't have anything additional to add at this point. He is encouraged to continue his Duragesic patch at 25 mcg and I told him we could go up on this ifneeded. He has some 12.5 mcg patches at home that he could add is needed. For now however he wants to use prn medication to supplement that instead. He is encouraged to continue tube feedings as he'snot able to take in a normal non-orally. He has a great resource at home and his who is a nurse practitioner. He'll let us know if issues or problems develop in the interim. documented in this encounter Procedure Notes * Provider, Scanning - 04/07/2012 7:47 AM EDTAssociated Order(s): SCAN DOC: CHEMOTHERAPY * Provider, Scanning - 04/06/2012 9:46 AM EDTAssociated Order(s): SCAN DOC: LAB * Provider, Scanning - 04/06/2012 9:45 AM EDTAssociated Order(s): SCAN DOC: DIAGNOSTIC RADIOLOGY * Provider, Scanning - 04/06/2012 9:30 AM EDTAssociated Order(s): SCAN DOC: LAB documented in this encounter ED Notes * Domingo Bates - 04/06/2012 9:50 AM EDT documented in this encounter Plan of Treatment Upcoming Encounters Date Type Department Care Team (Late st Contact Info) Description 05/24/2025 11:00 AM EDT Office Visit Radiation Oncology at [address] [phone] Jesse Mcmahan MD [facility] DR [place] [address] documented as of this encounter Procedures Procedure Name Priority Date/Time Associated Diagnosis Comments CHEMOTHERAPY SCAN 04/07/2012 7:4 7 AM EDT LAB SCAN 04/06/2012 9:46 AM EDT DIAGNOSTIC RADIOLOGY SCAN 04/06/2012 9:45 AM EDT LAB SCAN 04/06/2012 9:30 AM EDT documented in this encounter Results * SCAN DOC: CHEMOTHERAPY (04/07/2012 7:47 AM EDT) Narrative 04/07/2012 7:47 AM EDT Procedure Note Provider, Scanning - 04/07/2012 7:47 AM EDT Scanning Provider MEDIA MGR SCAN EXT O RDR/RSLT * SCAN DOC: LAB (04/06/2012 9:46 AM EDT) Narrative 04/06/2012 9:46 AM EDT Procedure Note Provider, Scanning - 04/06/2012 9:46 AM EDT Scanning Provider MEDIA MGR SCAN EXT O RDR/RSLT * SCAN DOC: DIAGNOSTIC RADIOLOGY (04/06/2012 9:45 AM EDT) Anatomical Region Laterality Modality Other Narrative 04/06/2012 9:50 AM EDT Procedure Note Provider, Scanning - 04/06/2012 9:45 AM EDT Scanning Provider MEDIA MGR SCAN EXT O RDR/RSLT * SCAN DOC: LAB (04/06/2012 9:30 AM EDT) Narrative 04/06/2012 9:30 AM EDT Procedure Note Provider, Scanning - 04/06/2012 9:30 AM EDT Scanning Provider MEDIA MGR SCAN EXT O RDR/RSLT documented in this encounter Visit Diagnoses Diagnosis Head and neck cancer- Primary Malignant neoplasm of head, face, and neck documented in this encounter Care Teams Roundhouse Firer/Fireman Relationship Specialty Start Date End Date Bj Alves MD [address] [place] [phone] PCP - General 06/25/10 04/02/23 documented as of this encounter
--- OUTSIDE RECORDS SUMMARY | 2024-08-01 15:30 | XMS_ITS | Encounter Summary ---
Author Organization [facility] [place] [address] Care Team Providers Care Courtesy Car Driver Name Role Phone Bj Alves MD Primary Care Provider [phone] Encounter Details Date Type Department Care Team (Late st Contact Info) Description 03/23/2012 10:00 AM EDT Ancillary Appointment Hematology Oncology at [address] [phone] Sabine Nash RD [facility] [place] [address] Social History Tobacco Use Types Packs/Day Years [...] Progress Notes * Sabine Nash RD - 03/23/2012 11:23 AM EDT [facility] Dietitian Follow Up Seen by: Gisele Nash MS, RD, LD Patient, Dx, and Tx: 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 Patient has been enrolled on RTOG 1016 and randomized to the radiation therapy plus Erbitux arm. Assessment: Wt: 99.38 kg on 03/23/12: 1.8% DECREASE in one week; Moderate Previous Wts: 101.152 kg on 03/16/12;1.8% Decrease in one week; Moderate 104 kg: Stable/Increased 103.5 kg on 03/02/12: Stable 103.5 kg on 02/24/12 Initial Wt: 103 kg on 02/17/12 Kcal needs: 25-30 kcals at Adj BW: 2000 - 2500 Protein needs: @ 1.3 - 1.5 g/kg Adj: 108- 125 Fluid needs: 2500 - 3000 mls Labs: 03/22/12 reviewed Meds: reviewed Food intake as compared to normal: ____Unchanged ____Increased __X__ Decreased It's that prednisone, I feel like I can pig out! But I do find that I need things to be room temperature to taste them. Am: Orgain (260 kcals, 16 g pro) with scoop of protein powder (130 kcals, 20 g pro/scoop), Noon: 2 egg omelette PM: 2 orgains with scoop of pro powder Snacks: oatmeal, Supplements: makes milkshake w/ blueberries, banana, and almond milk, and vanilla chinese yogurt, mayput some banana pudding ice cream in it, too. Typically has TID with scoop of pro powder TID Tried Orgain: It's pretty tasty, has purchased a couple of cased G-Tube: Hydrating with 1000 mls of water daily Teas, vitamins, or other nutritional supplements: D3 Food allergies or avoidances: kn Appetite: 2/10 scale. This has decreased, was 7/10. But states he is thristy. Nausea: says he feels a little stomach churning and he instantly takes an compazine. Vomiting: denies Chewing: denies Swallowing: It can be painful, Jocelin on board, no longer taking BMX. 4/10 when meds have taken effect. Xerostomia: +, does soda/salt rinses throughout the day, uses Bioteen. Purchased Theramouth BID, uses Ayrs gel for sleeping Taste Changes: +, dysgeusia, gets bitter aftertaste with most foods. Bowels: Has had to establish a bowel regimen, found that cold coffee helped keep bowels moving, buthasn't had one this am. Food availability/purchasing, meal planning and preparation: He does this, doesn't cook very well and he prefers her to come into the kitchen. Depression: n/a, affect continues to be very optimistic and upbeat Social Support: States it is wonderful. and dtr (10 YO) very supportive. Economic Issues: none Physical Activity: Feeling fatiged more than usual, gets winded more easily, not recovering as quickly. He is hopefull that the pain patch will help him sleep better. He is planning to start the patch on Mar,. Level of Motivation/Readiness to Change: Action Nutrition [...] the gtube for as long as possible. Swallowing is painful and intake has become compromised. Yesterday Salvador spoke with Bj at [facility] about his formula having corn syrup in it and he was resistant to taking it. We discussed that sugar is sugar and how cells need energy for metabolism. We also discussed that there are other alternatives such as making his own formula; however, this can be time consuming and foods safety can be at anissue. Today, we discussed keeping is Orgain supplement with protein powder at TID. We discussed maintaining current PO intake and also incorporating 2 cans Fibersouce HN to help stabilize weight. We also discussed bowel regularity, as he has started to take oxycodone, prn and has found this leads to constipation and prune juice is not relieving it. Once oral intake is compromised, gtube will need to be utilized. TF Recommendations:9 cans Fibersource H/N via gravity bag to provide: 2250 kcals, 121.5 g pro, and 1827 mls free water/day. Pt instructed to flush tube with 60 mls before and after each feeding. Pt will need and add'l 313 to 813 mls of water/day (1.5 - 3.5 cups) taken p.o. Or via tube. The above recommendations meet 100% of pt's TAB CARD PRESS OPERATOR's for kcal, vitamins, and minerals. Recommend administering 3 cans/time as mealsover a period of 1-2 hours, TID. Nutrition Intervention: Increase caloric needs : Discussed Modify diet consistency: not at this time Increase frequency of meals and snacks : q 2-3 hours Need for supplements : BID Nutrition Goals: Weight maintenance and PBM preservation Educational Handouts provided: -- Protein needs and sources -- Dirty Dozen and Clean Fifteen F& V list -- High Dean/Pro milk shake recipes -- Power pudding recipe Monitoring and Evaluation: Will follow up with Mr. Wyatt in one week (s) to re-evaluate. documented in this encounter Plan of Treatment Upcoming Encounters Date Type Department Care Team (Late st Contact Info) Description 05/24/2025 11:00 AM EDT Office Visit Radiation Oncology at [address] [phone] Jesse Mcmahan MD [facility] DR [place] [address] documented as of this encounter Visit Diagnoses Not on filedocumented in this encounter Care Teams Courtesy Car Driver Relationship Specialty Start Date End Date Bj Alves MD [address] [place] [phone] PCP - General 06/25/10 04/02/23 documented as of this encounter
--- OUTSIDE RECORDS SUMMARY | 2024-08-01 15:30 | XMS_ITS | Encounter Summary ---
Author Organization [facility] [place] [address] Care Team Providers Care Lunch Truck Driver Name Role Phone Bj Alves MD Primary Care Provider [phone] Encounter Details Date Type Department Care Team (Late st Contact Info) Description 04/09/2012 8:00 AM EDT Ancillary Appointment Hematology Oncology at [address] [phone] [address] [facility] [place] [address] Social History Tobacco Use Types Packs/Day Years [...] Progress Notes * Sabine Nash RD - 04/09/2012 8:54 AM EDT TC call to pt for dietitian follow up assessment. Left message. Called regarding how pt is tolerating benecalorie supplement and to make sure he received it from [place]. Will continue to follow. Last recorded wt: 94.38 kg on 04/06/12 Previous Wt: 95.709 kg on 04/02/12 documented in this encounter Plan of Treatment Upcoming Encounters Date Type Department Care Team (Late st Contact Info) Description 05/24/2025 11:00 AM EDT Office Visit Radiation Oncology at [address] [phone] Jesse Mcmahan MD [facility] [place] [address] documented as of this encounter Visit Diagnoses Not on filedocumented in this encounter Care Teams Lunch Truck Driver Relationship Specialty Start Date End Date Bj Alves MD [address] [place] [phone] PCP - General 06/25/10 04/02/23 documented as of this encounter
--- OUTSIDE RECORDS SUMMARY | 2024-08-01 15:30 | XMS_ITS | Encounter Summary ---
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 I'm definitely getting more tired now and have cut my work hours significantly. But I'm so bored at home!. I don't want to take a lot of pain meds. I'm a control freak and don't want to be sleepy. The sores on my tongue are VERY painful, especially when I try to eat. I would say 8/10 at least I can still swallow ok, but don't want to eat much because it hurts my tongue.. I started using my G-tube yesterday for hydration and it makes me feel much better My saliva is getting thicker and sticky but I can manage it still. My weight seems stable again. Objective: NA- telephone interview In discussion with Mr. Wyatt, he denies fever, nausea, vomiting or any other signs/symptoms of drug reaction. Salvador states that he is only taking his liquid oxycodone 10 ml 3 times a day Toxicity Assessment EVENT CTCAE GRADE ATTRIBUTION TO TREATMENT Onset >/= Grade 3 Resolution < Grade 3 Agitation 1 likely Fatigue 2 likely Pain 3 likely 03/17/2012 Dry Mouth 1 likely Rash (acneiform) 1 likely Dysgeusia 1 likely Education Provided: On-going discussion and review of potential side effects of Cetuximab including drug rash with patient. Symptom management; pt encouraged to use pain relief medications PRESCRIBED and to let treating staff know if it doesn't provide relief Nutritional management: Pt knows to monitor intake and weight; pt has tube feeds available if needed. Plan: 1. Pt will continue with protocol treatment per RTOG 1016 ARM 2. 2. Pt will continue open dialogue with PCP and other providers re: pain control 3. Pt understands and agrees with plan and knows to call the [place], [place]. clinic with anyfurther questions or concerns. 4. Mr Modi also knows that he can contact me with any protocol questions or concerns. Salud Amaro LENS FABRICATING MACHINE TENDER CCRP RTOG Research Nurse documented in this encounter Plan of Treatment Upcoming Encounters Date Type Department Care Team (Late st Contact Info) Description 05/24/2025 11:00 AM EDT Office Visit Radiation Oncology at [address] [phone] Jesse Mcmahan MD [facility] [place] [address] documented as of this encounter Visit Diagnoses Not on filedocumented in this encounter Care Teams Steel Unloader Relationship Specialty Start Date End Date Bj Alves MD [address] [place] [phone] PCP - General 06/25/10 04/02/23 documented as of this encounter
--- OUTSIDE RECORDS SUMMARY | 2024-08-01 15:30 | XMS_ITS | Encounter Summary ---
Author Organization [facility] [place] [address] Care Team Providers Care Computer Patternmaker Name Role Phone Bj Alves MD Primary Care Provider [phone] Reason for Visit * Reason Comments Chemotherapy Erbitux RTOG 1016 Do se # Encounter Details Date Type Department Care Team (Late st Contact Info) Description 03/17/2012 9:00 AM EDT Office Visit Hematology Oncology at [address] [phone] CLINIC, DR AMARAL HEM/ONC Tyson Hawkins MD Head and neck cancer (Primary Dx) [...] Sign Reading Time Taken Comments Blood Pressure 108/62 03/17/2012 9:15 AM EDT Pulse 65 03/17/2012 9:15 AM EDT Temperature 36.6 ??C (97.9 ??F) 03/17/2012 9:15 AM ED T Respiratory Rate 18 03/17/2012 9:15 AM EDT Oxygen Saturation 98% 03/17/2012 9:15 AM EDT Inhaled Oxygen Concentration - - Weight - - Height - - Body Mass Index - - documented in this encounter Progress Notes * Heather Momin, [facility] - 03/17/2012 1:52 PM EDT * Pharmacist Waste Documentation * Drug: [facility] [id number] (Cetuximab) Date Administered: 03/17/12 Time: 1:52 PM Amount Pharmacy Discarded: 37 mg * Cordelia Schumacher RN - 03/17/2012 10:17 AM EDT INFUSION THERAPY ADMINISTRATION NOTES DIAGNOSIS: Oropharangeal Cancer CYCLE #: week #5 REASON FOR VISIT: Cetuximab concurrent with XRT RTOG PROTOCOL #1016 SUBJECTIVE OBJECTIVE LAB DATA: WBC 8.8/Hgb 12.7/Hct 37.5/Plt 224/ANC 7.57/Potassium 3.6/Magnesium 1.9/ Na 136 ([facility] 03/15/2012) IV ACCESS: Mediport accessed at [facility]. Pre administration: Chemotherapy orders independently verified for drug name, route, and dosage per patient's height, weight and BSA by Cordelia Schumacher RN and Flaquita Sterling RN . REACTIONS (DESCRIPTION, TIME, INTERVENTION AND EFFECTIVENESS) none RTOG PROTOCOL 1016~ VITAL SIGNS(pre infusion and 60 min post infusion) Jtg-chwdtjykmcsphl-V 36.6~P 36.6~R 18~BP 108/62~Sat 98% 60 min [id number]-[id number]-T 36.9~P 71~R 18~BP 105/59~Sat 97% ASSESSMENT Sebastian was awake, alert and he tolerated treatment well. Premedications for Cetuximab made patient slightly sleepy. PLAN Return to clinic daily for XRT and weekly for Cetuximab. Call in interim with any questions or concerns. Patient was instructed on using g-tube for added hydration. documented in this encounter Plan of Treatment Upcoming Encounters Date Type Department Care Team (Late st Contact Info) Description 05/24/2025 11:00 AM EDT Office Visit Radiation Oncology at [address] [phone] Jesse Mcmahan MD [facility] [place] [address] documented as of this encounter Visit Diagnoses Diagnosis Head and neck cancer- Primary Malignant neoplasm of head, face, and neck documented in this encounter Administered Medications Inactive Administered Medications - up to 3 most recent administrations Medication Order MAR Action Action Date Dose Rate Site cetuximab (ERBITUX) chemo infusion 563 mg 563 mg, Intravenous, ONCE, 1 dose, On Thu03/17/12 at 0830, Administer over 1 Hours, Max infusion rate = 300 mL/hr. Product is dispensed in glass. Given 03/17/2012 10:13 AM EDT 563 mg dexamethasone sodium (PF) 10 mg in sodium chloride 0.9% 51 mL IVPB Intravenous, at 204 mL/hr, ONCE, On Thu03/17/12 at 0830, 1 dose Given 03/17/2012 9:45 AM EDT 204 mL/hr diphenhydrAMINE (BENADRYL) 25 mg in sodium chloride 0.9% 50.5 mL IVPB Intravenous, at 202 mL/hr, ONCE, On Thu03/17/12 at 0830, 1 dose Given 03/17/2012 9:20 AM EDT 202 mL/hr famotidine (PEPCID) tablet 20 mg 20 mg, Oral, ONCE, 1 dose, On Thu03/17/12 at 0830, Routine Given 03/17/2012 9:20 AM EDT 20 mg sodium chloride 0.9% 1,000 mL with magnesium sulfate 1 g infusion at 1,000 mL/hr, Intravenous, ONCE, 1 dose, On Thu03/17/12 at 0830, Infuse after Cetuximab New Bag 03/17/2012 11:20 AM EDT 1000 mL/hr documented in this encounter Care Teams Computer Patternmaker Relationship Specialty Start Date End Date Bj Alves MD [address] [place] [phone] PCP - General 06/25/10 04/02/23 documented as of this encounter
--- OUTSIDE RECORDS SUMMARY | 2024-08-01 15:30 | XMS_ITS | Encounter Summary ---
Author Organization [facility] [place] [address] Care Team Providers Care Density Control Puncher Name Role Phone Bj Alves MD Primary Care Provider [phone] Reason for Visit * Reason Comments IV Medication Hydration Encounter Details Date Type Department Care Team (Late st Contact Info) Description 04/07/2012 8:30 AM EDT Office Visit Hematology Oncology at [address] [phone] CLINIC, DR AMARAL HEM/ONC Tyson Hawkins MD [...] Sign Reading Time Taken Comments Blood Pressure 128/72 04/07/2012 11:30 AM EDT Pulse 98 04/07/2012 11:30 AM EDT Temperature 36.6 ??C (97.9 ??F) 04/07/2012 11:30 AM E DT Respiratory Rate 18 04/07/2012 11:30 AM EDT Oxygen Saturation 99% 04/07/2012 11:30 AM EDT Inhaled Oxygen Concentration - - Weight - - Height - - Body Mass Index - - documented in this encounter Progress Notes * Cordelia Schumacher RN - 04/07/2012 11:57 AM EDT INFUSION THERAPY ADMINISTRATION NOTES DIAGNOSIS: Head and Neck Cancer (s/p XRT & Chemo) REASON FOR VISIT: Hydration SUBJECTIVE Sebastian offers no complaints. OBJECTIVE IV ACCESS: Mediport REACTIONS (DESCRIPTION, TIME, INTERVENTION AND EFFECTIVENESS) none ASSESSMENT Sebastian was awake, alert and he tolerated treatment well. PLAN Return to clinic per routine. documented in this encounter Plan of Treatment Upcoming Encounters Date Type Department Care Team (Late st Contact Info) Description 05/24/2025 11:00 AM EDT Office Visit Radiation Oncology at [address] [phone] Jesse Mcmahan MD [facility] [place] [address] documented as of this encounter Visit Diagnoses Diagnosis Head and neck cancer- Primary Malignant neoplasm of head, face, and neck documented in this encounter Administered Medications Inactive Administered Medications - up to 3 most recent administrations Medication Order MAR Action Action Date Dose Rate Site sodium chloride 0.9% with potassium chloride 20 mEq infusion 500 mL/hr, Intravenous, ONCE, 1 dose, On Thu04/07/12 at 1100 New Bag 04/07/2012 11:45 AM EDT 500 mL/hr 500 mL/hr documented in this encounter Care Teams Density Control Puncher Relationship Specialty Start Date End Date Bj Alves MD [address] [place] [phone] PCP - General 06/25/10 04/02/23 documented as of this encounter
--- OUTSIDE RECORDS SUMMARY | 2024-08-01 15:30 | XMS_ITS | Encounter Summary ---
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 Mr. Modi consented to participate in RTOG 1016, signed consent and was subsequently randomized to ARM 2: RT with Cetuximab. Mr Wyatt began Day 1 Cetuximab Loading Dose @ 400 mg/m2 on 02/17/2012. Mr Wyatt began Day 1 RT on 02/24/2012. See Email Insert Below: From: Salud Amaro Sent: Thursday, March 22, 2012 5:33 PM To: Celia Low; Rakesh Underwood; Flaquita Sterling; Farzaneh Vital; Cordelia Schumacher; Tyson Limon; 'Marcelina Rizvi' ([email or web address]); Josselyn Peters; Rylee Garvey; Tash Louis; Jesse Mcmahan; Leslie Guzman Cc: Heather Momin; Luiz Banegas; Karley Fairchild Subject: Mr. Modi 03/29/2012 RTOG 1016 Importance: High Dear Providers, RE: Mr. Salvador Wyatt A# [id number] RTOG 1016 ARM 2 Cetuximab/RT 03/22/2012 Week 5 RT Infusion # 6 Cetuximab I have reviewed Mr. Modi???s labs drawn today. (See Below) I have reviewed the Flowsheet and see that at the point in time, Salvador???s wt is back to baseline pre-treatment wt (02/17/2012 =103 kg / 03/19/2012 102.9 kg) I have read last weeks??? noted of Dr. Limon???s and Dr. Ferrer and mucositis and rash do not appear =/> Grade 3 as of 03/19/2012. In speaking with Mr. Modi???s , Laura, at 1715 today, as Mr Modi was sleeping, she indicated that he is slightly more fatigued. Laura also states that Salvador is not sleeping well at night due to thick oral secretions. Laura stated that Salvador is using his G-tube for hydration. At this point in time, I do not see any toxicities that require a Cetuximab dose modification or delay. LABS OF NOTE: 03/22/2012 Na 135 If you have any questions or concerns, PLEASE give me a call tomorrow before you treat Salvador and I will be glad to help. Thank you all for your great support and help with Salvador and his treatment via RTOG 1016. Ramona Amaro RN BSN CCRP RTOG Logistic Specialist/Research Nurse [address] [phone] office; pager: [phone] Assessment: Stable Plan: Monitor labs; support per MD Continue treatment per RTOG 1016 Post-Chemo Call planned Salud Amaro RN BSN CCRP RTOG Research Nurse documented in this encounter Plan of Treatment Upcoming Encounters Date Type Department Care Team (Late st Contact Info) Description 05/24/2025 11:00 AM EDT Office Visit Radiation Oncology at [address] [phone] Jesse Mcmahan MD [facility] [place] [address] documented as of this encounter Visit Diagnoses Not on filedocumented in this encounter Care Teams Glassware Engraver Relationship Specialty Start Date End Date Bj Alves MD [address] [place] [phone] PCP - General 06/25/10 04/02/23 documented as of this encounter
--- OUTSIDE RECORDS SUMMARY | 2024-08-01 15:30 | XMS_ITS | Encounter Summary ---
Author Organization [facility] [address] Care Team Providers Care Defense Travel Administrator Name Role Phone Bj Alves MD Primary Care Provider [phone] Reason for Visit * Reason Comments Other patient had question s regarding what he can take for arthritis. Encounter Details Date Type Department Care Team (Latest Contact Info) Description 04/01/2012 Unscheduled Encounter Radiation Oncology at [address] [phone] Marcelina Edwards RN Pain (Primary Dx) Social History Tobacco Use Types [...] Progress Notes * Marcelina Rizvi RN - 04/01/2012 9:36 AM EDT Radiation Oncology Nurse Note Patient asked to see nurse today after his daily radiation treatment. He states that his arthritis is flaring up in his left ankle/foot. He has taken Celebrex in the past and is wondering if he can now. He does not have any at this time, but could ask his PCP to get some. I informed him that our clinical pharmaceutical on line reference states that the use of celebrex is contraindicated with antineoplastic agents. I advised that he try tylenol or oxycodone. He states he is trying to avoid oxycodone if at all possible, but will consider it. He verbalized understanding of these instructions. documented in this encounter Plan of Treatment Upcoming Encounters Date Type Department Care Team (Late st Contact Info) Description 05/24/2025 11:00 AM EDT Office Visit Radiation Oncology at [address] [phone] Jesse Mcmahan MD [facility] [place] [address] documented as of this encounter Visit Diagnoses Diagnosis Pain- Primary Generalized pain documented in this encounter Care Teams Defense Travel Administrator Relationship Specialty Start Date End Date Bj Alves MD [address] [place] [phone] PCP - General 06/25/10 04/02/23 documented as of this encounter
--- OUTSIDE RECORDS SUMMARY | 2024-08-01 15:30 | XMS_ITS | Encounter Summary ---
Author Organization [facility] Javier johnsonмарина [place] [address] Care Team Providers Care Polyethylene Bag Machine Operator Name Role Phone Bj Alves MD Primary Care Provider [phone] Encounter Details Date Type Department Care Team (Late st Contact Info) Description 04/02/2012 10:30 AM EDT Ancillary Appointment Hematology Oncology at [address] [phone] Sabine Nash, MANJU [facility] [place] [address] Social History Tobacco Use Types Packs/Day Years [...] Progress Notes * Sabine Nash, RD - 04/02/2012 11:00 AM EDT Pt not seen in this encounter. Was informed by Marcelina Rizvi RN that pt arrived febrile, diaphoretic and tachycardic today. He was advised to go to ED and insisted upon going to ED in [place], which is closer to home. Wt continues to decrease. Per RN and Dr. Mcmahan, pt's intake of TF volume was vague and he states he is taking in 5-6 cans/day. This doesn't not meet the kcal or protein recommendations he and I previously discussed. Conferenced with Dr. Mcmahan later in the day, as pt will hopefully be admitted. Called [facility], spoke to Geovanni NUNES to discuss TF recs, pt was not in system. TC pt, he was at home, had been discharged from ED and reported they had given him ABX and IVF. Encouraged him to increase TF to try and meet goal as he continues to take Orgain via p.o. Stated this was difficult; he attributes to feeling bloated from IVF received in ED. We discussed the importance of attempting TF goal to determine tolerance. If not able to tolerate volume will recommend Benecalorie supplement. Will follow up with Salvador on 04/06/12. documented in this encounter Plan of Treatment Upcoming Encounters Date Type Department Care Team (Late st Contact Info) Description 05/24/2025 11:00 AM EDT Office Visit Radiation Oncology at [address] [phone] Jesse Mcmahan MD [facility] [place] [address] documented as of this encounter Visit Diagnoses Not on filedocumented in this encounter Care Teams Polyethylene Bag Machine Operator Relationship Specialty Start Date End Date Bj Alves MD [address] [place] [phone] PCP - General 06/25/10 04/02/23 documented as of this encounter
--- OUTSIDE RECORDS SUMMARY | 2024-08-01 15:30 | XMS_ITS | Encounter Summary ---
Author Organization [facility] Javier johnsonмарина [place] [address] Care Team Providers Care Pocket And Pulley Machine Operator Name Role Phone Bj Alves MD Primary Care Provider [phone] Reason for Visit * Reason Onset Date Comments Medication Refill 03/25/2012 Encounter Details Date Type Department Care Team (Late st Contact Info) Description 03/25/2012 Refill Hematology Oncology at [address] [phone] Flaquita Sterling, RN Cancer of base of tongue (Primary Dx) [...] EDT Office Visit Radiation Oncology at [address] [phone] Jesse Mcmahan MD [facility] [place] [address] documented as of this encounter Visit Diagnoses Diagnosis Cancer of base of tongue- Primary Malignant neoplasm of base of tongue documented in this encounter Care Teams Pocket And Pulley Machine Operator Relationship Specialty Start Date End Date Bj Alves MD [address] [place] [phone] PCP - General 06/25/10 04/02/23 documented as of this encounter
--- OUTSIDE RECORDS SUMMARY | 2024-08-01 15:30 | XMS_ITS | Encounter Summary ---
Author Organization [facility] [place] [address] Care Team Providers Care Cutter Grind Tool Technician Name Role Phone Bj Alves MD Primary Care Provider [phone] Reason for Visit * Reason Comments Chemotherapy Erbitux RTOG 1016 Do se #6 Encounter Details Date Type Department Care Team (Late st Contact Info) Description 03/23/2012 11:00 AM EDT Office Visit Hematology Oncology at [address] [phone] CLINIC, DR AMARAL HEM/ONC Head and neck cancer (Primary Dx) Social [...] Sign Reading Time Taken Comments Blood Pressure 123/72 03/23/2012 3:20 PM EDT Pulse 98 03/23/2012 3:20 PM EDT Temperature 37.2 ??C (99 ??F) 03/23/2012 3:20 PM EDT Respiratory Rate 18 03/23/2012 3:20 PM EDT Oxygen Saturation - - Inhaled Oxygen Concentration - - Weight - - Height - - Body Mass Index - - documented in this encounter Progress Notes * Cordelia Schumacher RN - 03/23/2012 1:25 PM EDT INFUSION THERAPY ADMINISTRATION NOTES DIAGNOSIS: Oropharangeal Cancer CYCLE #: week #6 REASON FOR VISIT: Cetuximab concurrent with XRT RTOG PROTOCOL #1016 SUBJECTIVE Salvador offers that he is having a harder time swallowing, and that his throat is sore. OBJECTIVE LAB DATA: WBC 10.0/Hgb 13.1/Hct 39.4/Plt 251/ANC 8.22/Potassium 4.1/Magnesium 1.9/ Na 135 ([facility] 03/22/2012) IV ACCESS: Mediport accessed at [facility]. Pre administration: Chemotherapy orders independently verified for drug name, route, and dosage per patient's height, weight and BSA by Cordelia Schumacher RN and Flaquita Sterling RN . REACTIONS (DESCRIPTION, TIME, INTERVENTION AND EFFECTIVENESS) none RTOG PROTOCOL 1016~ VITAL SIGNS(pre infusion and 60 min post infusion) Ylx-fzphhkhqhkfbwf-W 37.2~P 90~R 18~BP 113/74~Sat 96% 60 min Xfnf-sitqguym-0382-T 37.1~P 98~R 18~BP 123/72~Sat 96% ASSESSMENT Sebastian was awake, alert and he tolerated treatment well. He complained of pain in his throat, wasgiven Oxycodone 10mg PO . Salvador met with yeast maker today and took fibersource via gtube. Post chemo and hydration Salvador was pale, vital signs stable, patient attributes it to stress of waiting for XRT, Dr. Underwood saw patient. Patient was given Ativan 0.5mg PO. PLAN Return to clinic daily for XRT and weekly for Cetuximab. Call in interim with any questions or concerns. Patient was instructed on using g-tube for added hydration & nutrition. * Heather Momin RPH - 03/23/2012 12:00 AM EDT * Pharmacist Waste Documentation * Drug: ndc [id number] (Cetuximab) Date Administered: 03/23/12 Time: 4:04 PM Amount Pharmacy Discarded: 37 mg documented in this encounter Plan of Treatment Upcoming Encounters Date Type Department Care Team (Late st Contact Info) Description 05/24/2025 11:00 AM EDT Office Visit Radiation Oncology at [address] [phone] Jesse Mcmahan MD [facility] [place] [address] documented as of this encounter Visit Diagnoses Diagnosis Head and neck cancer- Primary Malignant neoplasm of head, face, and neck documented in this encounter Administered Medications Inactive Administered Medications - up to 3 most recent administrations Medication Order MAR Action Action Date Dose Rate Site cetuximab (ERBITUX) chemo infusion 563 mg 563 mg, Intravenous, ONCE, 1 dose, On Thu03/23/12 at 1100, Administer over 1 Hours, Max infusion rate = 300 mL/hr. Product is dispensed in glass. Given 03/23/2012 12:49 PM EDT 563 mg dexamethasone sodium (PF) 10 mg in sodium chloride 0.9% 51 mL IVPB Intravenous, at 204 mL/hr, ONCE, On Thu03/23/12 at 1100, 1 dose Given 03/23/2012 11:45 AM EDT 204 mL/hr diphenhydrAMINE (BENADRYL) 25 mg in sodium chloride 0.9% 50.5 mL IVPB Intravenous, at 202 mL/hr, ONCE, On Thu03/23/12 at 1100, 1 dose Given 03/23/2012 11:15 AM EDT 202 mL/hr famotidine (PEPCID) 20 mg 20 mg, Intravenous, ONCE, 1 dose, On Thu03/23/12 at 1300, Administer over 30 Minutes, Pre Erbitux New Bag 03/23/2012 12:30 PM EDT 20 mg 100 mL/hr LORazepam (ATIVAN) tablet 0.5 mg 0.5 mg, Oral, ONCE, 1 dose, On Thu03/23/12 at 1630, X 1 now , Routine Given 03/23/2012 3:30 PM EDT 0.5 mg OXYcodone (ROXICODONE) immediate release tablet 10 mg 10 mg, Oral, ONCE, 1 dose, On Thu03/23/12 at 1530, Routine Given 03/23/2012 12:45 PM EDT 10 mg sodium chloride 0.9% 1,000 mL with magnesium sulfate 1 g infusion at 1,000 mL/hr, Intravenous, ONCE, 1 dose, On Thu03/23/12 at 1100, Infuse after Cetuximab New Bag 03/23/2012 2:10 PM EDT 1000 mL/hr documented in this encounter Care Teams Cutter Grind Tool Technician Relationship Specialty Start Date End Date Bj Alves MD [address] [place] [phone] PCP - General 06/25/10 04/02/23 documented as of this encounter
--- OUTSIDE RECORDS SUMMARY | 2024-08-01 15:30 | XMS_ITS | Encounter Summary ---
Author Organization [facility] Address [facility] [place] [address] Care Team Providers Care Door To Door Lead Generation Name Role Phone Bj Alves MD Primary Care Provider [phone] Encounter Details Date Type Department Care Team (Latest Contact Info) Description 04/06/2012 Unscheduled Encounter Hematology Oncology at [address] [phone] Sbaine Nash, MANJU [facility] [place] [address] Dietary surveillance and counseling (Primary Dx) Social [...] Progress Notes * Sabine Nash, MANJU - 04/06/2012 10:26 AM EDT [facility] Dietitian Follow Up Seen by: Gisele Nash MS, RD, LD Patient, Dx, and Tx: Pt had a rough weekend. 04/02/12 went to [facility] ED. Was not admitted, given IVF and ABX and sent home. 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 Patient has been enrolled on RTOG 1016 andrandomized to the radiation therapy plus Erbitux arm. Assessment: Ht: 175.3 cm Wt: 94.38 kg on 04/06/12; 1.5% DECREASE, MODERATE Previous Wts: 95.7 kg on 04/02/12 102.967 k olvin [...] compared to normal: ____Unchanged ____Increased __X__ Decreased I can't do too much, because I feel nasiated. I get about 4-6 cans/day in to me. P.O. Limited, orgain supplements, water, po meds at his time G-Tube: flushing daily. Administering 4-6 cans/day. Teas, vitamins, or other nutritional supplements: D3 Food allergies or avoidances: knfa Appetite none. Nausea: says he feels a little stomach churning and he instantly takes an compazine. Vomiting: denies Chewing: denies Swallowing: It can be painful, Jocelin on board, BMX on board, but says this doesn't really numb his throat, but it does numb everything else. Has also noticed he can choke on saliva, but can cough Mouthsores: present, left side more painful than right. Xerostomia: +, does soda/salt rinses throughout the day, uses Biotene. Purchased Theramouth, uses Ayrs gel for sleeping Taste Changes: +, decreased significantly. Tip of tongue is numb and side is swollen Bowels: Intermittent, last BM was on Thursday. Food availability/purchasing, meal planning and preparation: He [...] 8.4 % weight loss in 6 weeks. While he did experience weight loss (~ 10%) after dx 2/2 lifestyle changes, the most recent weightloss has been related to side effects of chemo/RT. Salvador is unable to meet the recommended TF goal of8 tetra packs of Fibersource HN due to feeling nauseated and bloated and his weight continues to decrease. He can consume 4-6 tetrapacks/day. This provides 1200 - 1800 kcals, 54- 81 g pro, and 812 - 1218 mls free water/day. He does continue to flush his tube before and after feedings with 60 mls ateach time. This current regimen provides 48 -72% of his low end estimated kcal needs and 50 - 75% of his lower end of estimated pro needs. Recommend supplementing current intake with Benecalorie BID to provide and additional 660 kcals and14 g protein. Oral intake has become compromised, gtube will [...] The above recommendations meet 100% of pt's GARDEN CONSULTANT's for kcal, vitamins, and minerals. -- Recommend [...] recipe Other: Orders will be faxed to [facility] for home supply delivery. Monitoring and Evaluation: Will follow up with Mr. Wytat in weekly while he is going through treatment. documented in this encounter Plan of Treatment Upcoming Encounters Date Type Department Care Team (Late st Contact Info) Description 05/24/2025 11:00 AM EDT Office Visit Radiation Oncology at [address] [phone] Jesse Mcmahan MD [facility] [place] [address] documented as of this encounter Visit Diagnoses Diagnosis Dietary surveillance and counseling- Primary documented in this encounter Care Teams Door To Door Lead Generation Relationship Specialty Start Date End Date Bj Alves MD [address] [place] [phone] PCP - General 06/25/10 04/02/23 documented as of this encounter
--- OUTSIDE RECORDS SUMMARY | 2024-08-01 15:30 | XMS_ITS | Encounter Summary ---
Author Organization [facility] [place] [address] Care Team Providers Care Instrumentation Instructor Name Role Phone Ash Hernandez MD Primary Care Provider [phone] Encounter Details Date Type Department Care Team (Late st Contact Info) Description 04/07/2012 Notes Only Radiation [place] [phone] Jesse Mcmahan MD [facility] [place] [address] Social History Tobacco Use Types Packs/Day Years [...] Progress Notes * Jesse Mcmahan MD - 06/03/2012 10:33 AM EDT RADIATION COMPLETION OF THERAPY NOTE Patient Name: Sebastian Wyatt Primary MD: ASH HERNANDEZ MD Referring MD: Other Involved Physicians: Focused Problem List: Patient Active Problem List Diagnoses ??? Cancer of base of tongue Overview Note: A. Presenting with sore throat, L zone II mass Spring 2011; FNA (+) SCCa. B. Staging: cystic cN2a L zone 2 mass; EUA 12/12/2011: difficult anatomy; 3 cm L BOT mass, firm L tonsil; Bx (+) SCCa in BOT, (-) in tonsil C. Rx planning in progress 12/2011 ??? Dysphagia, unspecified ??? DIFFICULT AIRWAY ??? Claustrophobia Overview Note: Needs sedation for scans ??? 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 Obesity ??? Hyperlipidemia ??? Hypertension ??? Glucose intolerance (impaired glucose tolerance) ??? Cigarette smoker ??? Hypothyroidism Overview Note: On replacement ??? GERD (gastroesophageal reflux disease) ??? Psoriasis ??? Sleep apnea Overview Note: On CPAP ??? Anxiety ??? Back pain, chronic ??? Thalassemia minor TREATMENT PLAN: Treatment site: Radiotherapy to the BOT primary and at risk lymph node basins. He was treated on RTOG 1016 Beam arrangement: VMAT composed of 3 arcs Beam energy: 6 MV Start date: 02/24/12 End date: 04/07/12 Dose per fraction: High risk: 200 cGy Int Risk: 160 cGy Elective Veronica: 150 cGy Number of fractions: 35 Total dose: High risk: 70 Gy Int Risk: 56 Gy Elective Veronica: 52.5 Gy Concurrent chemo: Arm 2, cetuximab SPECIAL TECHNICAL CONSIDERATIONS: Sebastian Wyatt was simulated on a CT simulator with custom immobilization. VMAT using a simultaneous integrated boost technique was used to encompass the target volume and minimize normal tissue toxicity according to pre-defined constraints. Daily kV imaging with weekly CBCT was used to maximize treatment accuracy. TREATMENT TOLERANCE: Sebastian Wyatt tolerated treatment with expected side effects. he developed Grade 2 skin erythema, 3 mucositis, 3 dysphagia and Grade 3 xerostomia. Symptoms were treated withBMX solution, narcotic analgesia, skin care, and aggressive oral hygiene. A PEG tube was placed prior to FRONT DESK REPRESENTATIVE, and by the end of therapy the majority of nutritional input was via this tube. Sebastian Cosby was able to continue to take liquid po throughout therapy. A paper and pulp mill operator was involved throughout treatment to try to minimize weight loss. Sebastian Wyatt knows to call this office or seek the help of the local emergency room if problems should arise. Follow-up with Dr. Mcmahan per protocol documented in this encounter Plan of Treatment Upcoming Encounters Date Type Department Care Team (Late st Contact Info) Description 05/24/2025 11:00 AM EDT Office Visit Radiation Oncology at [address] [phone] Jesse Mcmahan MD [facility] [place] [address] documented as of this encounter Visit Diagnoses Not on filedocumented in this encounter Care Teams Instrumentation Instructor Relationship Specialty Start Date End Date Ash Hernandez MD [address] [place] [phone] PCP - General 06/25/10 04/02/23 documented as of this encounter
--- OUTSIDE RECORDS SUMMARY | 2024-08-01 15:30 | XMS_ITS | Encounter Summary ---
Author Organization [facility] [place] [address] Care Team Providers Care Yeast Stacker Name Role Phone Bj Alves MD Primary Care Provider [phone] Encounter Details Date Type Department Care Team (Late st Contact Info) Description 03/16/2012 10:00 AM EDT Ancillary Appointment Hematology Oncology at [address] [phone] [facility] [place] [address] Social History Tobacco Use Types Packs/Day Years [...] Progress Notes * Sabine Nash, MANJU - 03/16/2012 12:47 PM EDT [facility] Dietitian Follow Up Seen by: Gisele Nash MS, RD, LD Patient, Dx, and Tx: 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 Patient has been enrolled on RTOG 1016 and randomized to the radiation therapy plus Erbitux arm. Assessment: Wt: 101.152 kg on 03/16/12;1.8% Decrease in one week; Moderate Previous Wts: 104 kg: Stable/Increased 103.5 kg on 03/02/12: Stable 103.5 kg on 02/24/12 Initial Wt: 103 kg on 02/17/12 Kcal needs: 25-30 kcals at Adj BW: 2000 - 2500 Protein needs: @ 1.3 - 1.5 g/kg Adj: 108- 125 Fluid needs: 2500 - 3000 mls Labs: reviewed Meds: reviewed Food intake as compared to normal: __X__Unchanged ____Increased ____ Decreased It's that prednisone, I feel like I can pig out! But I do find that I need things to be room temperature to taste them. Am: Orgain and / doughnut with coffee Noon: Tried hummus, but tasteless and couldn't eat it. Also had other stuff, but can't recall. PM: Cheeseburger with mashed pots and kale Snacks: only when he feels hungry, drinking prune juice to help with bowels since started taking Jocelin Supplements: makes milkshake w/ blueberries, banana, and almond milk, and vanilla russian yogurt, mayput some banana pudding ice cream in it, too. Typically has QOD Tried Orgain: It's pretty tasty, has purchased a couple of cased G-Tube: flushing daily Teas, vitamins, or other nutritional supplements: D3 Food allergies or avoidances: [facility] Appetite: 7/10 scale. This has decreased, was [...] the weekend, swallowing become very painful . He received BMX on Thursday and found this does help to numb things for eating purposes, but still feels the pain in the back of his throat with swallowing. Today, we dicussed increasing his supplements (Orgain and high [...] The above recommendations meet 100% of pt's GROUP BILLING COORDINATOR's for kcal, vitamins, and minerals. Recommend administering [...] AM EDT Office Visit Radiation Oncology at [address] [phone] Jesse Mcmahan MD [facility] [place] [address] documented as of this encounter Visit Diagnoses Not on filedocumented in this encounter Care Teams Yeast Stacker Relationship Specialty Start Date End Date Bj Alves MD [address] [place] [phone] PCP - General 06/25/10 04/02/23 documented as of this encounter
--- OUTSIDE RECORDS SUMMARY | 2024-08-01 15:30 | XMS_ITS | Encounter Summary ---
Author Organization [facility] [place] [address] Care Team Providers Care Supervisor Sign Shop Name Role Phone Ash Hernandez MD Primary Care Provider [phone] Reason for Visit * Reason Comments On Treatment Visit Encounter Details Date Type Department Care Team (Late st Contact Info) Description 03/26/2012 8:45 AM EDT Follow-Up Radiation Oncology at [address] [phone] Jesse Mcmahan MD [facility] [place] [address] Cancer of base of tongue (Primary Dx) [...] Sign Reading Time Taken Comments Blood Pressure 141/84 03/26/2012 8:55 AM EDT Pulse 90 03/26/2012 8:55 AM EDT Temperature 36.9 ??C (98.4 ??F) 03/26/2012 8:55 AM ED T Respiratory Rate 16 03/26/2012 8:55 AM EDT Oxygen Saturation 97% 03/26/2012 8:55 AM EDT Inhaled Oxygen Concentration - - Weight 98.4 kg (217 lb) 03/26/2012 8:55 AM EDT Height 175.3 cm (5' 9.02) 03/26/2012 8:55 AM ED T Body Mass Index 32.03 03/26/2012 8:55 AM EDT documented in this encounter Progress Notes * Jesse Mcmahan MD - 03/26/2012 9:05 AM EDT ON TREATMENT VISIT NOTE Primary [...] ?? 12/09/11 CT H&N with contrast ([facility]): Mixed attenuation mass with lare low density areas suggesting necrotic change present deep to anterior aspect L SCM. Mass smoothly marginated, max 3.3 x 5.2 cm. ?? 11/27/11 PET-CT ([facility]): Despite premedication, severe claustrophobia allowed this can [...] Wyatt is currently undergoing radiation therapy at [facility]. Current treatment dose: 52 Gy in 26fractions. Anticipated total dose: 70 Gy in 35 fractions. Evaluation of Port Verification Films: done Changes in medical condition: Skin: Comments: Papular rash on face and neck, moderate, c/w cetuximab rash. Mild skin erythema from RT. Irritation of L commissure. Current Regimen: Jeans cream/Aquaphor BID 0 1 [...] Comments: Increasing pain, still able to swallow. Using oxycodone, to start Duragesic patch today Current Pain Regimen: oxycodone, starting patch tonight PE: patchy mucositis oropharynx. No thrush. 0 1 2 3 4 No change from baseline Injection/ may experience mild pain not requiring analgesic Patchy mucositis & analgesia indicated, altered po intake Confluent mucosits; severe pain, unable to adequatelytake nutrition po Life threatening consequences Dysphagia: Alimentation: 1. By mouth: all by mouth, switching to softer foods 2. via PEG: not using PEG 0 1 2 3 4 No change from baseline Sx without dietary alteration Moderate sx, altered oral intake Inability toaliment orally, TPN or PEG indicated NA Weight : 228 lbs initial Change: 225 => 216 Larynx: Comments: 0 1 2 3 4 No change from baseline Mild or intermittent voice change; fully understandable, self- resolves Moderate or persistent voice change, able to vocalize; otalgia/ sore throat not requiring narcotic Whispered speech, throat pain/otalgia requiring narcotic Marked dyspnea, stridor or hemoptysis with trach or intubation necessary Other: ?? Anxiety/claustrophobia: lorazepam prn VS: Filed Vitals: 03/26/12 0855 BP: 141/84 Pulse: 90 Temp: 36.9 ??C (98.4 ??F) Resp: 16 Impression: ?? Moderate toxicity, with increasing mucositis, xerostomia. Significant weight loss, still not interested in using PEG, followed by diversified crops farmer. Discussed need to increase caloric intake via PEG tube,and he was in agreement. He also notes significant fatigue. Plan: ?? Continue RT per prescription ?? Pain control: ?? Tylenol prn ?? Oxycodone ?? Duragesic ?? Skin: ?? Jeans cream BID ?? Mucositis: ?? Pain control: see above ?? Oral hygiene consisting of baking soda/salt rinse at least 8 times daily ?? BMX prn ?? Alimentation: diversified crops farmer following ?? Weight decreased, all by mouth at this time, to start using PEG documented in this encounter Plan of Treatment Upcoming Encounters Date Type Department Care Team (Late st Contact Info) Description 05/24/2025 11:00 AM EDT Office Visit Radiation Oncology at [address] [phone] Jesse Mcmahan MD [facility] [place] [address] documented as of this encounter Visit Diagnoses Diagnosis Cancer of base of tongue- Primary Malignant neoplasm of base of tongue documented in this encounter Care Teams Supervisor Sign Shop Relationship Specialty Start Date End Date Ash Hernandez MD [address] [place] [phone] PCP - General 06/25/10 04/02/23 documented as of this encounter
--- OUTSIDE RECORDS SUMMARY | 2024-08-01 15:30 | XMS_ITS | Encounter Summary ---
Author Organization [facility] [address] Care Team Providers Care Head Bookkeeper Name Role Phone Bj Alves MD Primary Care Provider [phone] Reason for Visit * Reason Comments Follow-up Encounter Details Date Type Department Care Team (Late st Contact Info) Description 03/16/2012 10:00 AM EDT Follow-Up Hematology Oncology at [address] [phone] MarandajanuaryN Cancer of base of tongue (Primary Dx) [...] Sign Reading Time Taken Comments Blood Pressure 120/77 03/16/2012 9:47 AM EDT Pulse 80 03/16/2012 9:47 AM EDT Temperature 36.5 ??C (97.7 ??F) 03/16/2012 9:47 AM ED T Respiratory Rate 16 03/16/2012 9:47 AM EDT Oxygen Saturation 99% 03/16/2012 9:47 AM EDT Inhaled Oxygen Concentration - - Weight 101.2 kg (223 lb) 03/16/2012 9:47 AM EDT Height 175.3 cm (5' 9.02) 03/16/2012 9:47 AM ED T Body Mass Index 32.92 03/16/2012 9:47 AM EDT documented in this encounter Progress Notes * Celia Low, LINE PREP COOK - 03/16/2012 10:32 AM EDT Hematology/Oncology Outreach Clinic [facility] ESTABLISHED PATIENT EVALUATION: Diagnosis: 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 -- Salvador Wyatt presented with sore throat and low L neck node in November 2011. Long h/o sore throats of similar nature. Abx somewhat helpful for ST and lower neck node, but higher neck mass noted to grow. Seen by Dr. Parrish. Exam c/w L tonsil tumor; FNA of neck mass (+) for squamous cell Ca. Referred to Dr. Graves 12/04; EUA performed 12/11. Finding of ulcerated L BOT mass and firm suspicious Ltonsil noted, appearing to be separate tumors, but Bx's only demonstrated SCCa in the tongue base mass. Mouth/tongue geometry made visualization and intubation difficult; he notes some dental problems post-procedure Patient enrolled in RTOG 1016 to the radiation therapy plus Erbitux arm. Patient Active Problem List Diagnoses ??? Cancer of base of tongue A. Presenting with sore throat, L zone II mass Spring 2011; FNA (+) SCCa. B. Staging: cystic cN2a L zone 2 mass; EUA 12/12/2011: difficult anatomy; 3 cm L BOT mass, firm L tonsil; Bx (+) SCCa in BOT, (-) in tonsil C. Rx planning in progress 12/2011 ??? Claustrophobia Needs sedation for scans ??? 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 Obesity ??? Hyperlipidemia ??? Hypertension ??? Glucose intolerance (impaired glucose tolerance) ??? Cigarette smoker ??? Hypothyroidism On replacement ??? GERD (gastroesophageal reflux disease) ??? Psoriasis ??? Sleep apnea On CPAP ??? Anxiety ??? Back pain, chronic ??? Thalassemia minor Past Medical History Diagnosis Date ??? Acid reflux ??? Thyroid dysfunction ??? Arthritis ??? Psoriasis History Social History ??? Marital Status: Occupational History ??? Not on file. Social History Main Topics ??? Smoking status: Former Smoker -- 1.0 packs/day for 38 years Quit date: 08/06/2011 ??? Smokeless tobacco: Not on file ??? Alcohol Use: Yes rarely one glass of wine occasionally ??? Drug Use: Not on file ??? Sexually Active: Not on file Other Topics Concern ??? 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 Lives near [facility] with , 10yo daughter, 2 horses, 2 dogs. Born [place] of [place] parents; moved to [facility] [place] a boy. Family History Problem Relation Age of Onset ??? Heart Failure Mother ??? Diabetes ??? Heart Failure Father ??? Diabetes Father ??? Diabetes Mother INTERIM HISTORY OF PRESENT ILLNESS: It is my pleasure to meet Salvador who returns to the clinic todayfor treatment with concurrent chemo/xrt. He is enrolled on RTOG 1016 and randomized to the radiation therapy plus Erbitux arm. He has received four weeks of treatment and comes today anticipating week five of Erbitux, he continues XRT. Left neck node seems smaller. Fatigue is setting in, he is likely going to cut back on work. SOB w/stair climbing. Secretions are thickening. Mouth and throat quite sore this weekend, used oxycodone with partial relief. Asks about dose larger than 5mg, which whenhe took it brought pain from 10 to 8. He has less pain today. Continues to swallow food, odynophagia, dysgeusia, flushing Gtube, not using for nutrition. His psoriasis is improved. Rash on his scalp is stable, using hydrocortisone creme w/relief for pruritus. No new problems. INTERIM SOCIAL/FAMILY HISTORY: No interval change. MEDS: Current outpatient prescriptions ordered prior to encounter Medication Sig Dispense Refill ??? hydrocortisone 1 % cream Apply topically as needed. ??? alum-mag hydroxide-simeth (MAALOX) 200-200-20 mg/5 mL suspension Take 15 mLs by mouth as needed. ??? Saliva Stimulant Agents Comb.3 (BIOTENE MOISTURIZING MOUTH) [place] by Mucous Membrane route as needed. Indications: self ??? SALIVA STIMULANT AGENTS COMB.3 (BIOTENE MOISTURIZING MOUTH MM) by Mucous Membrane route as needed. ??? acetaminophen (TYLENOL) 160 mg/5 mL liquid Take 15 mg/kg/dose by mouth every 4 hours as needed. ??? LORazepam (ATIVAN) 0.5 mg tablet Take 1 tablet by mouth daily as needed for Anxiety (prior to radiation treatment). 20 tablet 0 ??? prochlorperazine (COMPAZINE) 10 mg tablet Take 1 tablet by mouth every 6 hours as needed for Nausea for 30 days. 30 tablet 5 ??? FLUoxetine (PROZAC) 20 mg capsule Take by mouth daily. ??? cholecalciferol, Vitamin D3, 400 unit tablet Take 400 Units by mouth daily. ??? omeprazole (PRILOSEC) 20 mg capsule Take 20 mg by mouth daily. ??? metoprolol succinate (TOPROL-XL) 100 mg XL tablet Take 50 mg by mouth daily. ??? amlodipine-atorvastatatin (CADUET) 5-20 mg per tablet Take 1 tablet by mouth daily. ??? rosuvastatin (CRESTOR) 10 mg tablet Take 10 mg by mouth daily. ??? doxazosin (CARDURA) 2 mg tablet Take 2 mg by mouth nightly. ??? levothyroxine (SYNTHROID) 137 mcg tablet Take 137 mcg by mouth daily. ??? augmented betamethasone dipropionate (DIPROLENE-AF) 0.05 % ointment Apply topically 2 times daily. ??? vitamin E 400 unit capsule Take 400 Units by mouth daily. ??? B Complex-Vitamin C-Folic Acid (NEPHROCAP) 1 mg capsule Take 1 capsule by mouth daily. ??? ascorbic acid (VITAMIN C) 500 mg tablet Take 500 mg by mouth daily. REVIEW OF SYSTEMS: Energy: fatigue Pain: throat, mouth Appetite:fair, dysgeusia Fevers/chills/drenching sweats:No Bruising/bleeding/melena:No Recent infections:No HEENT: swelling r/t tumor - decreasing, mouth sore, dysgeusia, odynophagia Nausea/vomiting/diarrhea/constipation:No Dysuria: A little slow to start, no pain SOB/cough/chest pain:No Change in adenopathy or other masses:No Unexpected weight loss or gain:No Skin rashes or petechiae: psoriasis improved Musculoskeletal complaints:No Extremities: Negative upper and lower bilaterally Neurologic symptoms:No PHYSICAL EXAM: BP 120/77 Pulse 80 Temp(Src) 36.5 ??C (97.7 ??F) (Oral) Resp 16 Ht 175.3 cm (5' 9.02) Wt 101.152 kg (223 lb) BMI 32.92 kg/m2 SpO2 99% NAD, A & O x 3. HEENT: Sclera anicteric, large patch of pseudomembrane posterior pharynx and smaller patches pseudomembrane left tongue, cracking of lips. Skin: small scattered erythematous patches with scales abdomen, maculopapular rash temples, scalp, face, patchy desquamation at the left corner of his mouth. Lymph: appx 5 cm firm left cervical node, non tender, no supraclavicular, axillary lymphadenopathy. Lungs: Bronchovesicular breath sounds throughout, no wheezes, rales, rhonci. Cardiac: Regular rate rhythm, S1, S2, no murmur, rub or gallop. Abdomen: Soft, non-tender, spleen and liver non palpable. Extremities: No lower extremity edema. M/S: No sternal or spinal tenderness. Neurologic: Gait steady, speech clear, cognition intact, no focal neurologic deficit. RADIOLOGY: no new studies LABORATORY: WBC 8.8, Hg 12.7, PLT 224, ANC 7.57, bun 12, creat 1.0, Na 136, K 3.6, Alb 4.2, Mag 1.9, AP 80, ALT 20, AST 21. ASSESSMENT/PLAN: SCC of the BOT - tolerating tx with apparent clinical response. Med onc and radiation delayed todaydue to communication system problems, patient will return tomorrow for XRT and Erbitux. Dysphagia - grade I Xerostomia grade I Dysgesua - grade 1 mucositis grade II Nutirtion - alb remains normal, minor weight loss, continue oral intake. Plan to use Gtube if he not able to maintain weight. F.Y w/nutrtionist as scheduled. Metabolic - mild hyponatremia. Add NS hydration which he refuses today, will give tomorrow. Pain - increase dose of oxycodone, continue prn. RX given. Dehydration - consider he is falling behind of his need w/XRT and due to decreased intake, will addNS hydration 1 liter daily, prn. RTCfor follow up in one week after his tx tomorrow. Will need labs and follow up per protocol. Patient was reminded to call in the interim should questions or concerns arise. documented in this encounter Plan of Treatment Upcoming Encounters Date Type Department Care Team (Late st Contact Info) Description 05/24/2025 11:00 AM EDT Office Visit Radiation Oncology at [address] [phone] Jesse Mcmahan MD [facility] [place] [address] documented as of this encounter Visit Diagnoses Diagnosis Cancer of base of tongue- Primary Malignant neoplasm of base of tongue documented in this encounter Care Teams Head Bookkeeper Relationship Specialty Start Date End Date Bj Alves MD [address] [place] [phone] PCP - General 06/25/10 04/02/23 documented as of this encounter
--- OUTSIDE RECORDS SUMMARY | 2024-08-01 15:30 | XMS_ITS | Encounter Summary ---
Author Organization [facility] [address] Care Team Providers Care Talent Scout Name Role Phone Bj Alves MD Primary Care Provider [phone] Reason for Visit * Reason Comments Esophageal Cancer Encounter Details Date Type Department Care Team (Late st Contact Info) Description 03/30/2012 10:00 AM EDT Follow-Up Hematology Oncology at [address] [phone] Rakesh Underwood MD Pain (Primary Dx); Head and neck cancer Discharge [...] Sign Reading Time Taken Comments Blood Pressure 108/84 03/30/2012 10:05 AM EDT Pulse 100 03/30/2012 10:05 AM EDT Temperature 37 ??C (98.6 ??F) 03/30/2012 10: 05 AM EDT Respiratory Rate 18 03/30/2012 10:0 5 AM EDT Oxygen Saturation 97% 03/30/2012 10: 05 AM EDT Inhaled Oxygen Concentration - - Weight 96.5 kg (212 lb 11.9 oz) 012 10:05 AM EDT Height 175.3 cm (5' 9.02) 03/30/2012 1 0:05 AM EDT Body Mass Index 31.4 03/30/2012 10:05 AM EDT documented in this encounter Progress Notes * Rakesh Underwood MD - 03/30/2012 10:39 AM EDT Diagnosis: 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 Patient has been enrolled on RTOG 1016 andrandomized to the radiation therapy plus Erbitux arm. Subjective: Salvador comes in today for week 7 Erbitux. His rash has worsened a little bit. He went on to the 12.5mg Duragesic patch and that was not as much help as he would like. There was a day that he overlapped the 2 patches and during that time he did do better. We discussed starting him on 25 mcg patches and continuing his rescue doses for discomfort. 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 His bowels are fine and he toleratedthe antibiotic well. He is swallowing most of his food but is supplementing with his gastrostomy tube a couple cans of supplement daily. He is in good spirits and has noted the lymph node in his neckhas essentially resolved. Review of Systems Constitutional: Negative for fever, chills, activity change, mild fatigue and no unexpected weight change. HENT: He now has a moderately severe sore throat on the left with [...] retrospect may be part of the radiation reaction Neck: Supple, symmetrical, trachea midline, there is a normal size lymph node in the left neck where the original palpable node was noted. The left neck mass has essentially resolved.. thyroid: not enlarged, symmetric, no tenderness/mass/nodules, [...] subtly worse today than a week ago Lymph nodes: Supraclavicular, and axillary nodes normal Neurologic: Normal Laboratory today is reviewed. White count is 6.8 hemoglobin 13.1 hematocrit 38.5 and platelet countis 285. ANC is 5.67. CMP shows a creatinine of 0.8 sodium of 135 and albumin of 3.8 and normal liver tests including an ALP of 70 a bilirubin of 0.7 and a magnesium level of 1.9. Assessment/Plan: Salvador has a locally advanced squamous [...] at this point. Although it has increased slightly.We'll go ahead with week 7 Erbitux today and see him back in a week with a CBC CMP and magnesium level prior to the anticipated week 8 of Erbitux.. this will be his final dose. His radiation therapy will be completed next week. He is encouraged to continue his Duragesic patch at 25 mcg and to continue tube feedings as he's not able to take in a normal non-orally. He has a great resource at home and his who is a nurse practitioner. He'll let us know if issues or problems develop in the interim. documented in this encounter Plan of Treatment Upcoming Encounters Date Type Department Care Team (Late st Contact Info) Description 05/24/2025 11:00 AM EDT Office Visit Radiation Oncology at [address] [phone] Jesse Mcmahan MD [facility] [place] [address] documented as of this encounter Visit Diagnoses Diagnosis Pain- Primary Generalized pain Head and neck cancer Malignant neoplasm of head, face, and neck documented in this encounter Care Teams Talent Scout Relationship Specialty Start Date End Date Bj Alves MD [address] [place] [phone] PCP - General 06/25/10 04/02/23 documented as of this encounter
--- OUTSIDE RECORDS SUMMARY | 2024-08-01 15:30 | XMS_ITS | Encounter Summary ---
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 Mr. Modi consented to participate in RTOG 1016, signed consent and was subsequently randomized to ARM 2: RT with Cetuximab. Mr Wyatt began Day 1 Cetuximab Loading Dose @ 400 mg/m2 on 02/17/2012. Mr Wyatt began Day 1 RT on 02/24/2012. Mr. Modi presented to [facility] on 04/02/2012 for radiation therapy and was found to be febrile with oral temp of ~[address] Mcmahan's instructions, Mr Modi was subsequently assessed at his local hospital and placed on Clindamycin antibiotic therapy. Mr. Modi presents today for his last Cetuximabinfusion (#8) and last week of radiation therapy. Subjective: NA - chart review Objective: NA- chart review, discussion with Treatment Team and review of associated notes from last week, ?? Mr Wyatt continues with low grade temperature (99.9 po) ?? Labs reviewed and appear acceptable to treat ?? Rash assessment by Dr. Underwood appears to be < Grade 3 ?? There do no appear to be any dose limiting or modifying toxicities today Toxicity Assessment EVENT CTCAE GRADE ATTRIBUTION TO TREATMENT Onset >/= Grade 3 Resolution < Grade 3 Fatigue 2 likely Pain 2 likely 03/17/2012 03/30/2012 Dry Mouth 1 likely Rash (acneiform) 1 likely Dysphagia 3 likely 03/31/2012 Dermatitis Radiation 2 Dysgeusia 2 likely Plan: 1. Pt will continue with protocol treatment per RTOG 1016 ARM 2 Cetuximab Infusion # 8 (last one). 2. Pt knows to call the [place] clinic with any further questions or concerns. 3. Mr Modi also knows that he can contact me with any protocol questions or concerns. Salud Amaro MEDICINE ASSISTANT CCRP RTOG Research Nurse documented in this encounter Plan of Treatment Upcoming Encounters Date Type Department Care Team (Late st Contact Info) Description 05/24/2025 11:00 AM EDT Office Visit Radiation Oncology at [address] [phone] Jesse Mcmahan MD [facility] [address] documented as of this encounter Visit Diagnoses Not on filedocumented in this encounter Care Teams Avionics Repair Technician Relationship Specialty Start Date End Date Bj Alves MD [address] [place] [phone] PCP - General 06/25/10 04/02/23 documented as of this encounter
--- OUTSIDE RECORDS SUMMARY | 2024-08-01 15:30 | XMS_ITS | Encounter Summary ---
Author Organization [facility] [place] [address] Care Team Providers Care Platform Material Handling Supervisor Name Role Phone Bj Alves MD Primary Care Provider [phone] Encounter Details Date Type Department Care Team (Late Contact Info) Description 03/31/2012 Orders Only Hematology Oncology at [address] [phone] Rakesh Underwood MD Head and neck cancer (Primary Dx) Social [...] EDT Office Visit Radiation Oncology at [address] [phone] Jesse Mcmahan MD [facility] [place] [address] documented as of this encounter Visit Diagnoses Diagnosis Head and neck cancer- Primary Malignant neoplasm of head, face, and neck documented in this encounter Care Teams Platform Material Handling Supervisor Relationship Specialty Start Date End Date Bj Alves MD [address] [place] [phone] PCP - General 06/25/10 04/02/23 documented as of this encounter
--- OUTSIDE RECORDS SUMMARY | 2024-08-01 15:30 | XMS_ITS | Encounter Summary ---
Author Organization [facility] [place] [address] Care Team Providers Care Elevator Supervisor Name Role Phone Bj Alves MD Primary Care Provider [phone] Encounter Details Date Type Department Care Team (Late st Contact Info) Description 03/30/2012 10:00 AM EDT Ancillary Appointment Hematology Oncology at [address] [phone] [facility] [place] [address] Social History Tobacco Use Types Packs/Day Years [...] Progress Notes * Sabine Nash RD - 03/30/2012 10:11 AM EDT [facility] Dietitian Follow Up Seen by: Gisele Nash MS, RD, LD Patient, Dx, and Tx: 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 Patient has been enrolled on RTOG 1016 and randomized to the radiation therapy plus Erbitux arm. This is infusion #7 of chemo/ week 6 of RT. Assessment: Wt:96.5 k% DECREASE in one week: Significant Previous Wts: 99.38 kg on 03/23/12: 1.8% DECREASE in one week; Moderate 101.152 kg on 03/16/12;1.8% Decrease in one [...] compared to normal: ____Unchanged ____Increased __X__ Decreased PO: Eggs and oatmeal, sips of water throughout the day. Supplements: Orgain (260 kcals, 16 g pro)+ 1 can Fibersource HN/day + scoop pro powder (130 kcals, 20 g pro/scoop), . Typically has TID with scoop of pro powder TID Tried Orgain: It's pretty tasty, has purchased a couple of cased G-Tube: Hydrating with 1000 mls of water daily, 4- 6 cans/day (2.5 cans BID, 1 can mixed with orgain). Flushes before and after with 60 mls. Had 4 yesterday (1390 kcals, 90 g pro, ~ 2 L of water via tube). Teas, vitamins, or other nutritional supplements: D3 Food allergies or avoidances: knfa Appetite: 4/10 scale. Nausea: +, taking compazine. Vomiting: denies Chewing: denies Swallowing: He now has a moderately severe sore throat on the left with some mouth sores. No longertaking BMX, feels this doesn't help. Jocelin on board, fentyl patch increased Xerostomia: +, does soda/salt rinses throughout the day, uses Bioteen. Purchased Theramouth BID, uses Ayrs gel for sleeping Taste Changes: +, dysgeusia, no longer getting bitter aftertaste with most foods. Bowels: so/so. Takes stool softener. Food availability/purchasing, meal planning and preparation: He does this, doesn't cook very well and he prefers her to come into the kitchen. Depression: n/a, affect continues to be very optimistic and upbeat Social Support: States it is wonderful. and dtr (10 YO) very supportive. Economic Issues: none Physical Activity: No longer working, resting more at home. Fatigue impacting activity Level of Motivation/Readiness to Change: Action Nutrition Diagnosis: Hypermetabolism related to tongue cancer as evidenced by decrease of 10% weight loss in 3 mos. It is difficult to determine how much of his weight loss was due to positive changes in his diet after receiving his dx vs. Unintentional weight loss 2' his cancer. Salvador continues to decrease weight and has been very hesitant to initiate TF. In our previous visiton 03/23/12, we agreed to start with 2 cans/day. However, per other provider notes, he started usingformula on 03/27/12 and may have even been taking the formula p.o. Swallowing is painful and intake has become compromised as he is only consuming liquids and soft foods. Yesterday Salvador spoke with Bj at [facility] about his formula having corn syrup in it and he was resistant to taking it. We discussed that sugar is sugar and how cells need energy for metabolism. [place]o discussed that there are other alternatives such as making his own formula; however, this can be time consuming and foods safety can be at an issue. We discussed keeping is Orgain supplement with protein powder once/day. We discussed his kcal/pro needs to help stabilize weight and also how many cans he needed/day to help with this. Oral intake is compromised, gtube should be utilized. TF Recommendations:8 cans Fibersource H/N via gravity bag to provide: 2400 kcals, 108 g pro, and 1624 mls free water/day. Pt instructed to flush tube with 60 mls before and after each feeding. Pt will need and add'l 876 mls of water/day (3.5 cups) taken p.o. Or via tube. The above recommendations meet 100% of pt's ARMOURED CAR ESCORT's for kcal, vitamins, and minerals. Recommend administering [...] milk shake recipes -- Power pudding recipe -- Gastrostomy and Jejunostomy Home Care Guide Monitoring and Evaluation: Will follow up with Mr. Wyatt in one week (s) to re-evaluate. documented in this encounter Plan of Treatment Upcoming Encounters Date Type Department Care Team (Late st Contact Info) Description 05/24/2025 11:00 AM EDT Office Visit Radiation Oncology at [address] [phone] Jesse Mcmahan MD [facility] [place] [address] documented as of this encounter Visit Diagnoses Not on filedocumented in this encounter Care Teams Elevator Supervisor Relationship Specialty Start Date End Date Bj Alves MD [address] [place] [phone] PCP - General 06/25/10 04/02/23 documented as of this encounter
--- OUTSIDE RECORDS SUMMARY | 2024-08-01 15:30 | XMS_ITS | Encounter Summary ---
[place] [address] Care Team Providers Care Supervisor Of Research Name Role Phone Bj Alves MD Primary Care Provider [phone] Encounter Details Date Type Department Care Team (Late st Contact Info) Description 03/29/2012 Telephone [place] [phone] Salud Amaro, RN Social History [...] * Telephone Encounter - Salud Amaro - 03/29/2012 6:25 PM EDT Images from the original note were not included. Research Nurse Telephone Note RTOG 1016 Phase III Trial of Radiotherapy Plus Cetuximab VERSUS Chemoradiotherapy In HPV-Associated Oropharynx Cancer Date: 03/29/2012 Time: 0 PT ID: [id number] Case #: [id number] Study Point: Week 6 RT/ Infusion # 7 Cetuximab Purpose of Telephone Call: Pre-Chemo Assessment Call Mr. 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 Mr. Modi consented to participate in RTOG 1016, signed consent and was subsequently randomized to ARM 2: RT with Cetuximab. Mr Rubi began Day 1 Cetuximab Loading Dose @ 400 mg/m2 on 02/17/2012. Mr Rubi began Day 1 RT on 02/24/2012. Pre-Chemo call to pt to assess status Subjective: NA- Pt Sleeping; telephone interview with Mr. Modi's , Laura Franco is using the fentanyl patch but still needs his oxycontin for breakthrough pain control. He is going to speak with Dr. Underwood tomorrow about increasing the fentanyl patch dose. He started using his G-tube for supplemental feeding Thursday. No, we don't have any problems withthe tube or his tolerating the feedings. Salvador is not constipated any more. Yes, he knows he gets chemo first so he isn't going to [facility] until 1000. Objective: NA- telephone interview ?? In discussion with Mr. Rubi' , Laura, she states that Salvador does not have any fever, nausea, vomiting or any other other complaints beside pain and fatigue ?? PRE-CHEMO LAB RESULTS UNKNOWN AT THIS TIME. Toxicity Assessment EVENT CTCAE GRADE ATTRIBUTION TO TREATMENT Onset >/= Grade 3 Resolution < Grade 3 Fatigue 2 likely Pain 3 likely 03/17/2012 Education Provided: Symptom management; including need to rest due to fatigue, constipation, etc. Nutritional management: Pt knows to monitor intake and weight; pt using G tube feeds now. and Mrs Rubi know that Salvador is to receive Chemo (Cetuximab) BEFORE RT; they are planning thearrival at [facility] appointments accordingly. Plan: 1. Pre-Chemo Lab Review tomorrow by Dr. Underwood and also myself when labs available in edH 2. Urgent email sent to providers and treatment staff that Mr. Modi is to receive Cetuximab BEFORE RT.(see email below). Follow Up telephone call Tomorrow am to [facility] providers to be made to insure thisis communicated. Pt Alert put in [facility] that will hold tx. 3. Pt will continue with protocol treatment per RTOG 1016 ARM 2 with correction in RT/Cetuximab timing 4. Mrs. Modi understands and agrees with plan and knows to call the [facility] clinic withany further questions or concerns. 5. Mr and Mrs Modi also knows that he can contact me with any protocol questions or concerns. 6. Mr. Modi know that he may also reach me via email if needed. From: Salud Amaro Sent: Thursday, March 29, 2012 5:41 PM To: Rakesh Underwood; Flaquita Sterling; Clayton Alexis; Karley Gamble; Josselyn Peters; 'Marcelina Rizvi' ([email or web address]); Cordelia Schumacher; Tash Louis; Shiloh Vital; Antonio Barboza Cc: Heather Momin; Luiz Banegas; Juana Kumar; Karley Fairchild Subject: MR Modi URGENT!!!! DO NOT TREAT MR Modi RTOG 1016 !!!!! Importance: High Dear Providers URGENT DO NOT TREAT MR RUBI BEFORE YOU READ THIS MESSAGE Mr Salvador Rubi A# [id number] is supposed to receive CETUXIMAB BEFORE RT NOT AFTER!! Please see Section 7.1.2.2: Cetuximab Weeks 2-8 (concurrent with RT and for 1 week after RT): Patients on Arm 2 will receive cetuximab, 250 mg/m2, intravenously (iv) over 60 minutes on a weekly schedule. Cetuximab should be administered prior to radiation therapy. According to Faviola, Mr. Modi is scheduled for RT BEFORE Cetuximab. Please change these times if at all possible PRE-CHEMO LABS ARE NOT SCANNED IN edH: Therefore, I cannot give clearance to treat Salvador. I will Call first thing in the morning as well. Ramona Amaro RN BSN CCRP RTOG Barrel Charrer Helper/Research Nurse Radiation Oncology [facility] phone [phone] fax [phone] [employer] Salud Amaro RN BSN CCRP RTOG Research Nurse documented in this encounter Plan of Treatment Upcoming Encounters Date Type Department Care Team (Late st Contact Info) Description 05/24/2025 11:00 AM EDT Office Visit Radiation Oncology at [address] [phone] Jesse Mcmahan MD [facility] [place] [address] documented as of this encounter Visit Diagnoses Not on filedocumented in this encounter Care Teams Supervisor Of Research Relationship Specialty Start Date End Date Bj Alves MD [address] [place] [phone] PCP - General 06/25/10 04/02/23 documented as of this encounter
--- OUTSIDE RECORDS SUMMARY | 2024-08-01 15:30 | XMS_ITS | Encounter Summary ---
Author Organization [facility] [place] [address] Care Team Providers Care Technical Solutions Consultant Name Role Phone Bj Alves MD Primary Care Provider [phone] Encounter Details Date Type Department Care Team (Late Contact Info) Description 04/29/2012 Orders Only Hematology Oncology at [address] [phone] Rakesh Underwood MD Head and [...] EDT Office Visit Radiation Oncology at [address] [phone] [facility] [place] [address] documented as of this encounter Visit Diagnoses Diagnosis Head and neck cancer- Primary Malignant neoplasm of head, face, and neck documented in this encounter Care Teams Technical Solutions Consultant Relationship Specialty Start Date End Date Bj Alves MD [address] [place] [phone] PCP - General 06/25/10 04/02/23 documented as of this encounter
--- OUTSIDE RECORDS SUMMARY | 2024-08-01 15:30 | XMS_ITS | Encounter Summary ---
Author Organization [facility] [place] [address] Care Team Providers Care Mechanical Research Engineer Name Role Phone Bj Alves MD Primary Care Provider [phone] Reason for Visit * Reason Comments Chemotherapy PROTOCOL RTOG 1016 ~ Cetuximab dose #4 Encounter Details Date Type Department Care Team (Late st Contact Info) Description 03/09/2012 11:00 AM EDT Office Visit Hematology Oncology at [address] [phone] CLINIC, DR AMARAL HEM/ONC Rakesh Underwood MD Head and neck cancer [...] Sign Reading Time Taken Comments Blood Pressure 114/69 03/09/2012 2:10 PM EDT Pulse 66 03/09/2012 2:10 PM EDT Temperature 36.8 ??C (98.2 ??F) 03/09/2012 2:10 PM ED T Respiratory Rate 18 03/09/2012 2:10 PM EDT Oxygen Saturation 97% 03/09/2012 2:10 PM EDT Inhaled Oxygen Concentration - - Weight - - Height - - Body Mass Index - - documented in this encounter Progress Notes * Cordelia Schumacher RN - 03/09/2012 10:59 AM EDT INFUSION THERAPY ADMINISTRATION NOTES DIAGNOSIS: Oropharangeal Cancer CYCLE #: week #4 REASON FOR VISIT: Cetuximab concurrent with XRT RTOG PROTOCOL #1016 SUBJECTIVE Sebastian offers that his tongue is a bit swollen and has one spot that is sore. OBJECTIVE LAB DATA: WBC 8.6/Hgb 12.8/Hct 37.4/Plt 223/ANC 6.15/Potassium 3.9/Magnesium 1.8 ([facility] 03/08/2012) IV ACCESS: Mediport accessed at [facility]. Pre administration: Chemotherapy orders independently verified for drug name, route, and dosage per patient's height, weight and BSA by Cordelia Schumacher RN and Flaquita Sterling RN . REACTIONS (DESCRIPTION, TIME, INTERVENTION AND EFFECTIVENESS) none RTOG PROTOCOL 1016~ VITAL SIGNS(pre infusion and 60 min post infusion) Gsc-[id number]-C 36.5~P 66~R 18~BP 143/89~Sat 98% 60 min [id number] 36.8~P 66~R 18~BP 114/69~Sat 97% ASSESSMENT Sebastian was awake, alert and he tolerated treatment well. Premedications for Cetuximab made patient slightly sleepy, lorazepam not taken prior to XRT. PLAN Return to clinic daily for XRT and weekly for Cetuximab. Call in interim with any questions or concerns. * Heather Momin RPH - 03/09/2012 12:00 AM EDT * Pharmacist Waste Documentation * Drug: ndc [id number] (Cetuximab) Date Administered: 03/09/12 Time: 11:31 AM Amount Pharmacy Discarded: 37 mg documented in this encounter Plan of Treatment Upcoming Encounters Date Type Department Care Team (Late st Contact Info) Description 05/24/2025 11:00 AM EDT Office Visit Radiation Oncology at [address] [phone] Jesse Mcmahan MD [facility] [place] [address] documented as of this encounter Visit Diagnoses Diagnosis Head and neck cancer- Primary Malignant neoplasm of head, face, and neck documented in this encounter Administered Medications Inactive Administered Medications - up to 3 most recent administrations Medication Order MAR Action Action Date Dose Rate Site cetuximab (ERBITUX) chemo infusion 563 mg 563 mg, Intravenous, ONCE, 1 dose, On Thu03/09/12 at 1100, Administer over 1 Hours, Max infusion rate = 300 mL/hr. Product is dispensed in glass. Given 03/09/2012 12:05 PM EDT 563 mg dexamethasone sodium (PF) 10 mg in sodium chloride 0.9% 51 mL IVPB Intravenous, at 204 mL/hr, ONCE, On Thu03/09/12 at 1100, 1 dose Given 03/09/2012 11:10 AM EDT 204 mL/hr diphenhydrAMINE (BENADRYL) 25 mg in sodium chloride 0.9% 50.5 mL IVPB Intravenous, at 202 mL/hr, ONCE, On Thu03/09/12 at 1100, 1 dose Given 03/09/2012 11:30 AM EDT 202 mL/hr famotidine (PEPCID) tablet 20 mg 20 mg, Oral, ONCE, 1 dose, On Thu03/09/12 at 1100, Routine Given 03/09/2012 11:10 AM EDT 20 mg sodium chloride 0.9% 1,000 mL with magnesium sulfate 1 g infusion at 1,000 mL/hr, Intravenous, ONCE, 1 dose, On Thu03/09/12 at 1100, Infuse after Cetuximab New Bag 03/09/2012 1:05 PM EDT 1000 mL/hr documented in this encounter Care Teams Mechanical Research Engineer Relationship Specialty Start Date End Date Bj Alves MD [address] [place] [phone] PCP - General 06/25/10 04/02/23 documented as of this encounter
--- OUTSIDE RECORDS SUMMARY | 2024-08-01 15:30 | XMS_ITS | Encounter Summary ---
Author Organization [facility] [place] [address] Care Team Providers Care Program Manager Transportation Name Role Phone Ash Hernandez MD Primary Care Provider [phone] Encounter Details Date Type Department Care Team (Late st Contact Info) Description 04/09/2012 10:00 AM EDT Follow-Up Radiation Oncology at [address] [phone] Jesse Mcmahan MD [facility] [place] [address] Cancer of base of tongue (Primary Dx) [...] Sign Reading Time Taken Comments Blood Pressure - - Pulse - - Temperature - - Respiratory Rate - - Oxygen Saturation - - Inhaled Oxygen Concentration - - Weight 93.4 kg (206 lb) 04/09/2012 9:46 AM EDT Height - - Body Mass Index 30.41 04/06/2012 9:09 AM EDT documented in this encounter Progress Notes * Jesse Mcmahan MD - 04/09/2012 9:53 AM EDT FOLLOW UP VISIT NOTE Primary [...] Staging: ?? 12/09/11 CT H&N with contrast ([facility] Mixed attenuation mass with lare low density areas suggesting necrotic change present deep to anterior aspect L SCM. Mass smoothly marginated, max 3.3 x 5.2 cm. ?? 11/27/11 PET-CT ([facility]): Despite premedication, severe claustrophobia [...] Gy completed 04/06/12 Interval History: Sebastian Wyatt completed radiotherapy on 04/06/12 and returns for routine follow up. Since completing [employer] he has been stable, with ongoing mucositis, dysgeusia, and skin irritation. He has not had a return of his fever from a week prior, and has been on antibiotics as prescribed. Skin: Comments: Irritation of L commissure, small volume desquamation on skin fold of neck Current Regimen: Jeans cream/Aquaphor BID 0 1 [...] TPN or PEG indicated NA Mucositis: Comments: Stable pain, still able to swallow small volume liquids, soft solids. Current Pain Regimen: Duragesic patch @ 25 mcg, oxycodone prn PE: extensive patchy mucositis oropharynx. No thrush. 0 1 2 3 4 No change from baseline Injection/ may experience mild pain not requiring analgesic Patchy mucositis & analgesia indicated, altered po intake Confluent mucosits; severe pain, unable to adequatelytake nutrition po Life threatening consequences Dysphagia: Alimentation: 1. By mouth: minimal by mouth softer foods 2. via PEG: per editor news. Limited over past few days by nausea, and overall has had limited intake. 0 1 2 3 4 No change from baseline Sx without dietary alteration Moderate sx, altered oral intake Inability toaliment orally, TPN or PEG indicated NA Weight : 228 lbs initial Change: 211 => 206 Larynx: Comments: 0 1 2 3 4 No change from baseline Mild or intermittent voice change; fully understandable, self- resolves Moderate or persistent voice change, able to vocalize; otalgia/ sore throat not requiring narcotic Whispered speech, throat pain/otalgia requiring narcotic Marked dyspnea, stridor or hemoptysis with trach or intubation necessary Other: ?? Nausea: increased nausea associated with TFs. He is currently pushing in TFs too rapidly, and wediscussed slowing down intake In order to minimize nausea. Compazine prn. VS: There were no vitals filed for this visit. Impression: overall stable symptoms excepting some increased nausea, with no return of febrile episode. Emphasized need to slow down TFs. We will add zofran to his nausea regime. Plan: ?? Pain control: ?? Tylenol prn ?? Oxycodone ?? Duragesic ?? Skin: ?? Jeans cream BID, antibiotic ointment ?? Mucositis: ?? Pain control: see above ?? Oral hygiene consisting of baking soda/salt rinse at least 8 times daily ?? BMX prn ?? Alimentation: editor news following ?? Slow down TFs, emphasized need to increase caloric intake. ?? Nausea: ?? Compazine prn ?? ADD zofran prn ?? FU: one week documented in this encounter ED Notes * Paulo Vehicle Service Attendant - 04/12/2012 10:43 AM EDT documented in this encounter Miscellaneous Notes * Discharge Summary - Domingo Bates - 04/15/2012 1:45 PM EDT documented in this encounter Plan of Treatment Upcoming Encounters Date Type Department Care Team (Late st Contact Info) Description 05/24/2025 11:00 AM EDT Office Visit Radiation Oncology at [address] [phone] Jesse Mcmahan MD [facility] [place] [address] documented as of this encounter Visit Diagnoses Diagnosis Cancer of base of tongue- Primary Malignant neoplasm of base of tongue documented in this encounter Care Teams Program Manager Transportation Relationship Specialty Start Date End Date Ash Hernandez MD [address] [place] [phone] PCP - General 06/25/10 04/02/23 documented as of this encounter
--- OUTSIDE RECORDS SUMMARY | 2024-08-01 15:30 | XMS_ITS | Encounter Summary ---
Author Organization [facility] [place] [address] Care Team Providers Care Junior Buyer Name Role Phone Bj Alves MD Primary Care Provider Reason for Visit * Reason Onset Date Comments Other 03/22/2012 Encounter Details Date Type Department Care Team ([facility] Contact Info) Description 03/22/2012 Telephone Hematology Oncology at [address] [phone] Flaquita Sterling, RN Other Social History Tobacco Use Types [...] encounter Miscellaneous Notes * Telephone Encounter - Flaquita Sterling RN - 03/22/2012 2:15 PM EDT Willow Lobo, PRASANTH, oncology case management rn with [employer] called to report that [employer] will cover Mr. Wyatt's chemotherapy. The authorization number is #[id number]. 03/22/2012: This note has been forwarded to Ms. Fatimah Chu, Financial Counselor/[facility] ([phone]) for documentation. Salud Amaro RN/RTOG Research Nurse documented in this encounter Plan of Treatment Upcoming Encounters Date Type Department Care Team (Late Contact Info) Description 05/24/2025 11:00 AM EDT Office Visit Radiation Oncology at [address] [phone] Jesse Mcmahan MD [facility] [place] [address] documented as of this encounter Visit Diagnoses Not on filedocumented in this encounter Care Teams Junior Buyer Relationship Specialty Start Date End Date Bj Alves MD [address] [place] [phone] PCP - General 06/25/10 04/02/23 documented as of this encounter
--- OUTSIDE RECORDS SUMMARY | 2024-08-01 15:30 | XMS_ITS | Encounter Summary ---
Author Organization [facility] [place] [address] Care Team Providers Care Ramp Lead Name Role Phone Ash Hernandez MD Primary Care Provider [phone] Reason for Visit * Reason Comments On Treatment Visit Encounter Details Date Type Department Care Team (Late st Contact Info) Description 04/02/2012 7:45 AM EDT Follow-Up Radiation Oncology at [address] [phone] Jesse Mcmahan MD [facility] [place] [address] Cancer of base of tongue (Primary Dx) [...] Sign Reading Time Taken Comments Blood Pressure 111/84 04/02/2012 8:00 AM EDT Pulse 135 04/02/2012 8:42 AM EDT Temperature 39.4 ??C (102.9 ??F) 04/02/2012 8:42 AM E DT Respiratory Rate 20 04/02/2012 8:00 AM EDT Oxygen Saturation 93% 04/02/2012 8:42 AM EDT Inhaled Oxygen Concentration - - Weight 95.7 kg (211 lb) 04/02/2012 8:00 AM EDT Height - - Body Mass Index 31.14 03/30/2012 10:05 AM EDT documented in this encounter Progress Notes * Jesse Mcmahan MD - 04/02/2012 8:37 AM EDT ON TREATMENT VISIT NOTE Primary [...] Staging: ?? 12/09/11 CT H&N with contrast ([facility]): Mixed attenuation mass with lare low density areas suggesting necrotic change present deep to anterior aspect L SCM. Mass smoothly marginated, max 3.3 x 5.2 cm. ?? 11/27/11 PET-CT ([facility]): Despite premedication, [...] Wyatt is currently undergoing radiation therapy at [facility]. Current treatment dose: 64 Gy in 32 fractions. Anticipated total dose: 70 Gy in 35 fractions. Evaluation of Port Verification Films: done Changes in medical condition: Today Mr. Wyatt is actively diaphoretic. He has a fever of ~ 103 degrees. He notes a cough which he attributes to the mucus production in the back of his throat, productive of mucus but intermittent. He does not feel dyspneic. He does note some urinary hesitancy but no dysuria. He states that he began to feel hot and sweaty ~ 2 days prior. He is currently on Keflex for skin and mucosal irritation 2/2 cetuximab and radiotherapy. Skin: Comments: Papular rash on face and neck, moderate, c/w cetuximab rash. Moderatre skin erythema fromRT. Irritation of L commissure. Current Regimen: Jeans [...] Mucositis: Comments: Increasing pain, still able to swallow small volume [...] mouth softer foods 2. via PEG: per layout man 0 1 2 3 4 No change from baseline Sx without dietary alteration Moderate sx, altered oral intake Inability toaliment orally, TPN or PEG indicated NA Weight : 228 lbs initial Change: 216 => 211 Larynx: Comments: 0 1 2 3 4 No change from baseline Mild or intermittent voice change; fully understandable, self- resolves Moderate or persistent voice change, able to vocalize; otalgia/ sore throat not requiring narcotic Whispered speech, throat pain/otalgia requiring narcotic Marked dyspnea, stridor or hemoptysis with trach or intubation necessary Other: ?? Anxiety/claustrophobia: lorazepam prn ?? Pulmonary status: physical exam reveals some upper airway sounds, but no obvious rales or rhochi. VS: Filed Vitals: 04/02/12 0800 BP: 111/84 Pulse: 140 Temp: 39.5 ??C (103.1 ??F) Resp: 20 Impression: ?? Pt febrile, diaphoretic and tachycardic today. High concern re underlying infection. Asked him to go to ED adjacent to [facility] but he insisted on proceeding to ED close to home in [place]. Tylenol given to diminish fever prior to leaving. No obvious etiology of infection, highest probability aspiration PNA. Significant toxicity, with increasing mucositis, xerostomia. Still mild weight loss, usingPEG, followed bydietician. Plan: ?? Hold second fraction of RT today ?? Proceed to ED for evaluation of underlying infection, will contact [place] ED and discuss. ?? Pain control: ?? Tylenol prn ?? Oxycodone ?? Duragesic ?? Skin: ?? Jeans cream BID ?? Mucositis: ?? Pain control: see above ?? Oral hygiene consisting of baking soda/salt rinse at least 8 times daily ?? BMX prn ?? Alimentation: layout man following ?? Weight decreased, will need to increase TF documented in this encounter Plan of Treatment Upcoming Encounters Date Type Department Care Team (Late st Contact Info) Description 05/24/2025 11:00 AM EDT Office Visit Radiation Oncology at [address] [phone] Jesse Mcmahan MD [facility] [place] [address] documented as of this encounter Visit Diagnoses Diagnosis Cancer of base of tongue- Primary Malignant neoplasm of base of tongue documented in this encounter Care Teams Ramp Lead Relationship Specialty Start Date End Date Ash Hernandez MD [address] [place] [phone] PCP - General 06/25/10 04/02/23 documented as of this encounter
--- OUTSIDE RECORDS SUMMARY | 2024-08-01 15:30 | XMS_ITS | Encounter Summary ---
Author Organization [facility] Address [facility] [place] [address] Care Team Providers Care Business Education Teacher Name Role Phone Bj Alves MD Primary Care Provider [phone] Encounter Details Date Type Department Care Team (Late st Contact Info) Description 03/20/2012 Telephone Hematology [place] [phone] Judson Ferrer MD [facility] DR HEMATOLOGY/[place] [address] Social History Tobacco Use Types Packs/Day Years [...] encounter Miscellaneous Notes * Telephone Encounter - Judson Ferrer - 03/20/2012 9:41 AM EDT His calls stating that he is feeling his usual general fatigue, but no fever/chills/nausea/vomiting/abdominal pain/chest pain/SOB/BARBOSA/focal neuro symptoms/dysuria/oliguria/hematuria. She says shewas supposed to have checked his urine last week because she had told one of his health providers that his urination has been slowing down over the past few months. She checked it today with a clean catch urine dip. She says it noted small-mod blood. He is otherwise asymptomatic, as above. I asked her to have this repeated on Thursday when she goes for appointments and radiation, and to call us should he develop any new symptoms such as fever, chills, abdominal pain, hematuria, oliguria, dysuria, or other symptoms of concern. Judson Ferrer MD Fellow, Hematology/Oncology Pager #: [phone] documented in this encounter Plan of Treatment Upcoming Encounters Date Type Department Care Team (Late st Contact Info) Description 05/24/2025 11:00 AM EDT Office Visit Radiation Oncology at [address] [phone] Jesse Mcmahan MD [facility] [place] [address] documented as of this encounter Visit Diagnoses Not on filedocumented in this encounter Care Teams Business Education Teacher Relationship Specialty Start Date End Date Bj Alves MD [address] [place] [phone] PCP - General 06/25/10 04/02/23 documented as of this encounter
--- OUTSIDE RECORDS SUMMARY | 2024-08-01 15:30 | XMS_ITS | Encounter Summary ---
Author Organization [facility] [place] [address] Care Team Providers Care Quill Fixer Name Role Phone Bj Alves MD Primary Care Provider [phone] Encounter Details Date Type Department Care Team (Late st Contact Info) Description 03/09/2012 10:30 AM EDT Ancillary Appointment Hematology Oncology at [address] [phone] [facility] [place] [address] Social History Tobacco Use Types Packs/Day Years [...] Progress Notes * Sabine Nash RD - 03/09/2012 11:26 AM EDT [facility] Dietitian Follow Up Seen by: Gisele Nash MS, RD, LD Patient, Dx, and Tx: 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 Patient has been enrolled on RTOG 1016 and randomized to the radiation therapy plus Erbitux arm. Assessment: Wt: 104 kg: Stable/Increased Previous Wts: 103.5 kg on 03/02/12: Stable 103.5 kg [...] I feel like I can pig out! Am: PB and crackers Noon: salad PM: fish and fish cakes, green beans, rice, and pumpkin ice cream (3 bowls) Snacks: nuts, raisins, yogurt Supplements: makes milkshake w/ blueberries, banana, and almond milk, and vanilla zambian yogurt, mayput some banana pudding ice cream in it, too. Typically has 5/7 days week Tried Orgain: It's pretty tasty G-Tube: flushing daily Teas, vitamins, or other nutritional supplements: D3 Food allergies or avoidances: [facility] Appetite: 8-9/10 scale I can keep my appetite under control during the day, but at night, lately,I can eat a side of beef. Nausea: denies for the most part, but does say he's felt more of a heart burn sensation on 4 or 5 occasions, but will take a compazine and this helps. sli Vomiting: denies Chewing: denies Swallowing: getting more uncomfortable, using liquid tylenol for now, not oxy. Xerostomia: +, at least BID or TID does soda/salt rinses, also uses Biotenen. Using more water supplement for lack of saliva with eating. Taste Changes: +, no longer eating beef; tasteless. Tip of tongues no longer feels numb, foods are starting to be not as intense. Bowels: regular a little on the loose [...] to walk stairs more to increase activity. Level of Motivation/Readiness to Change: Action Nutrition Diagnosis: Hypermetabolism related to tongue cancer as evidenced by decrease of 10% weight loss in 3 mos. It is difficult to determine how much of his weight loss was due to positive changes in his diet after receiving his dx vs. Unintentional weight loss 2' his cancer. Salvador continues to be in great spirits and eating very well. He is very diligent with watching his weight and strives to delay using the gtube for as long as possible. We discussed that the next weekwill really start to bring issues to the surface and swallowing is expected to be compromised. He has noted that over the weekend, swallowing has become more painful. Discussed using BMX to help to relieve this when eating. He received some from Josselyn Peters RN before leaving clinic today. He mentioned that Dr. Limon had scripted ativan last week to help with anxiety. He reports that he took it, but didn't feel anything from it. Upon further contemplation, he said he tried to take it many years before for flying and it didn't have any affects. Thus, he feels he won't take it. Once oral intake is compromised, gtube [...] The above recommendations meet 100% of pt's TENANT RELATIONS COORDINATOR's for kcal, vitamins, and minerals. Recommend administering 3 cans/time as mealsover a period of 1-2 hours, TID. Nutrition Intervention: Increase caloric needs : Discussed Modify diet consistency: not at this time Increase frequency of meals and snacks : q 2-3 hours Need for supplements : encouraged, and would like for him to try Orgain, as he prefers to organic products and natural sugars. Will provide samples. Nutrition Goals: Weight maintenance and PBM preservation Educational Handouts provided: -- Protein needs and sources -- Dirty Dozen and Clean Fifteen F& V list Monitoring and Evaluation: Will follow up with Mr. Wyatt in one week (s) to re-evaluate. documented in this encounter Plan of Treatment Upcoming Encounters Date Type Department Care Team (Late st Contact Info) Description 05/24/2025 11:00 AM EDT Office Visit Radiation Oncology at [address] [phone] Jesse Mcmahan MD [facility] [place] [address] documented as of this encounter Visit Diagnoses Not on filedocumented in this encounter Care Teams Quill Fixer Relationship Specialty Start Date End Date Bj Alves MD [address] [place] [phone] PCP - General 06/25/10 04/02/23 documented as of this encounter
--- OUTSIDE RECORDS SUMMARY | 2024-08-01 15:30 | XMS_ITS | Encounter Summary ---
Author Organization [facility] [place] [address] Care Team Providers Care Spot Remover Name Role Phone Bj Alves MD Primary Care Provider [phone] Reason for Visit * Reason Onset Date Comments Other 03/11/2012 Insurance compan y Encounter Details Date Type Department Care Team (Late st Contact Info) Description 03/11/2012 Telephone Hematology Oncology at [address] [phone] Flaquita Sterling, RN Other (Insurance company) Social History Tobacco Use Types Packs/Day Years [...] Telephone Encounter - Flaquita Sterling RN - 03/11/2012 10:30 AM EDT Willow Lobo, Oncology Customer Care Coordinator, for [employer], called requesting information regarding Mr. Aguilars chemotherapy. His [employer] case #[id number]. , extension [phone] FAX [phone] Thursday-Thursday, 8:30 AM-5 PM Physically in [place] A copy of Mr. Blue chemotherapy orders were faxed to [employer]. Ms. Lobo was referred to [facility] RTOG block and case maker, Salud Amaro RN, for more information regarding RTOG Protocol 1016. Salud Prem's phone is [phone]. documented in this encounter Plan of Treatment Upcoming Encounters Date Type Department Care Team (Late st Contact Info) Description 05/24/2025 11:00 AM EDT Office Visit Radiation Oncology at [address] [phone] Jesse Mcmahan MD [facility] [address] [place] [address] documented as of this encounter Visit Diagnoses Not on filedocumented in this encounter Care Teams Spot Remover Relationship Specialty Start Date End Date Bj Alves MD [address] [place] [phone] PCP - General 06/25/10 04/02/23 documented as of this encounter
--- OUTSIDE RECORDS SUMMARY | 2024-08-01 15:30 | XMS_ITS | Encounter Summary ---
Author [facility] [place] [address] Care Team Providers Care Bottle Washing Machine Operator Name Role Phone Bj Alves MD Primary Care Provider [phone] Reason for Visit * Reason Comments Head And Neck Cancer Encounter Details Date Type Department Care Team (Late st Contact Info) Description 04/20/2012 12:00 PM EDT Follow-Up Hematology Oncology at [address] [phone] Rakesh Underwood MD Head and [...] Sign Reading Time Taken Comments Blood Pressure 121/80 04/20/2012 11:56 AM EDT Pulse 81 04/20/2012 11:56 AM EDT Temperature 36.8 ??C (98.2 ??F) 04/20/2012 11:56 AM E DT Respiratory Rate 16 04/20/2012 11:56 AM EDT Oxygen Saturation 97% 04/20/2012 11:56 AM EDT Inhaled Oxygen Concentration - - Weight 92.1 kg (203 lb) 04/20/2012 11:56 AM EDT Height 175.3 cm (5' 9.02) 04/20/2012 11:56 AM E DT Body Mass Index 29.96 04/20/2012 11:56 AM EDT documented in this encounter Progress Notes * Rakesh Underwood MD - 04/20/2012 12:47 PM EDT Diagnosis: 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 Patient has been enrolled on RTOG 1016 andrandomized to the radiation therapy plus Erbitux arm. Subjective: Salvador comes in today for followup. Since I last saw him he has had a admission to the hospital in [place] for hypokalemia associated with diarrhea while the patient was on clindamycin. He told me that they did not find C. difficile and his diarrhea is markedly improved now that he stopped the antibiotic. She was also placed on continuous tube feedings which she cooks himself up to in the evenings. Since doing that things have gone better and his nutritional status and strength has improved although he still quite weak overall. There's a little desquamation on the skin on his neck and he is still having a sore throat the pain medications are taking care of that. He notes he is eating some and still believes that he has reasonable saliva production. Past medical history and social history are reviewed above. Review of Systems Constitutional: Negative for fever, [...] cheek, and tongue alsonow has some involvement it looks a little better though than a couple weeks ago. Neck: Supple, symmetrical, trachea midline, there is a normal size lymph node in the left neck where the original palpable node was noted. The left neck mass has resolved.. thyroid: not enlarged, symmetric, no tenderness/mass/nodules, no carotid bruit or JVD. The skin over the platysmas does have some excoriation Back: Symmetric, no curvature, ROM normal, no CVA tenderness Lungs: Clear to auscultation bilaterally, respirations unlabored Chest Wall: No tenderness or deformity Heart: Regular rate and rhythm, S1, S2 normal, no murmur, rub or gallop Abdomen: Soft, non-tender, bowel sounds active all four quadrants, no masses, no organomegaly. His feeding tube looks fine Extremities: Extremities normal, atraumatic, no cyanosis or edema Pulses: 2+ and symmetric Skin: Skin color, texture, turgor normal, mild actiniform rash as described above is subtly worse today than a week ago there is definitely more rash in the skin folds of the neck. Lymph nodes: Supraclavicular, and axillary nodes normal Neurologic: Normal Laboratory is reviewed from the . His albumin was reasonable at 2.8 potassium 4.3 magnesium 1.6liver tests normal and creatinine 1.0. Assessment/Plan: Salvador has a locally advanced squamous cell carcinoma of the base of the tongue with left cervical metastasis. He is recovering from combined treatment and doing quite well overall. I think he is turned a corner on his nutritional status and would expect him to slowly but steadily get better over the next few weeks. Not sure the diarrhea was from the antibiotic and may have been from bolus tube feedings but either way he became hypokalemic and required hospitalization. With repletion he is doingmuch better now and with the continuous infusion feedings in the evenings I think things are now under control. I gave him the option to come back in one week or 2 when he would like to come back in 2 weeks. We'll check lab on return. He'll keep his followup with radiation therapy. documented in this encounter Plan of Treatment Upcoming Encounters Date Type Department Care Team (Late st Contact Info) Description 05/24/2025 11:00 AM EDT Office Visit Radiation Oncology at [address] [phone] Jesse Mcmahan MD [facility] [place] [address] documented as of this encounter Visit Diagnoses Diagnosis Head and neck cancer- Primary Malignant neoplasm of head, face, and neck documented in this encounter Care Teams Bottle Washing Machine Operator Relationship Specialty Start Date End Date Bj Alves MD [address] [place] [phone] PCP - General 06/25/10 04/02/23 documented as of this encounter
--- OUTSIDE RECORDS SUMMARY | 2024-08-01 15:30 | XMS_ITS | Encounter Summary ---
Author Organization [facility] [place] [address] Care Team Providers Care Trial Consultant Name Role Phone Bj Alves MD Primary Care Provider [phone] Encounter Details Date Type Department Care Team (Late Contact Info) Description 04/12/2012 Telephone Hematology Oncology at [address] [phone] Cordelia Schumacher RN Social History Tobacco Use [...] encounter Miscellaneous Notes * Telephone Encounter - Cordelia Schumacher RN - 04/12/2012 10:08 AM EDT Rec'd call from [facility] Sebastian was being seen in the emergency room and will not be in for hydration today. documented in this encounter Plan of Treatment Upcoming Encounters Date Type Department Care Team (Late Contact Info) Description 05/24/2025 11:00 AM EDT Office Visit Radiation Oncology at [address] [phone] Jesse Mcmahan MD [facility] [place] [address] documented as of this encounter Visit Diagnoses Not on filedocumented in this encounter Care Teams Trial Consultant Relationship Specialty Start Date End Date Bj Alves MD [address] [place] [phone] PCP - General 06/25/10 04/02/23 documented as of this encounter
--- OUTSIDE RECORDS SUMMARY | 2024-08-01 15:30 | XMS_ITS | Encounter Summary ---
Author Organization [facility] [place] [address] Care Team Providers Care Print Press Operator Name Role Phone jB Alves MD Primary Care Provider [phone] Reason for Visit * Reason Comments On Treatment Visit Encounter Details Date Type Department Care Team (Late st Contact Info) Description 03/19/2012 8:15 AM EDT Follow-Up Radiation Oncology at [address] [phone] Tyson Limon MD Tongue cancer (Primary Dx) Discharge Disposition: Home Social [...] Sign Reading Time Taken Comments Blood Pressure 121/73 03/19/2012 8:27 AM EDT Pulse 70 03/19/2012 8:27 AM EDT Temperature - - Respiratory Rate 16 03/19/2012 8:27 AM EDT Oxygen Saturation 98% 03/19/2012 8:27 AM EDT Inhaled Oxygen Concentration - - Weight 103 kg (227 lb) 03/19/2012 8:27 AM EDT Height - - Body Mass Index 33.51 03/16/2012 9:47 AM EDT documented in this encounter Progress Notes * Tyson Limon MD - 03/19/2012 9:45 AM EDT 03-19-2012 0TV Squamous cell carcinoma of L BOT, 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 1 PPD x 38 yrs. Quit 08/2011. Developed odynophagia early 11/2011, abx did not improve, . Referred to ENT. He does note some coughing in the morning ove the past year. Stagin12/09/11 CT H&N with contrast ([facility]): Mixed attenuation mass with lare low density areas suggesting necrotic change present deep to anterior aspect L SCM. Mass smoothly marginated, max 3.3 x 5.2 cm 11/27/11 PET-CT ([facility]): Despite premedication, severe claustrophobia limited value of study. 12/12/11 EUA with triple endoscopy and biospsy: LPR changes to the mucosa. Difficult to [...] for malignancy Positive for HPV genotype p16 Enrolled on RTOG 1016, randomized to cetuximab arm Identification: Sebastian Wyatt is currently undergoing radiation therapy at [facility] . Current treatment dose: 40 Gy in 20 fractions. Anticipated total dose: 70 Gy in 35 fractions. Evaluation of Port Verification Films: done Changes in medical condition: Skin: Comments: Papular rash on face and neck, moderate, c/w cetuximab rash. ( Follicular, faint or dull erythema/ epilation/dry desquamation/ decreased sweating Tender or bright erythema, patchy moist desquamation/ moderate edema Confluent, moist desquamatiom other than skin folds, pitting edema) RT-specific skin toxicity.aerly Gr 2 Current Regimen: Jeans cream/Aquaphor BID Gr 2 Rad epiderm Xerostomia: Comments: Ageusia, Pain 3-7/10 when chewing. Moderate to complete dryness; thick, sticky saliva; markedly altered taste I TPN or PEG indicated NA Gr 2 Pain 3-7/10 when chewing. Moderate to complete dryness; thick, sticky saliva; markedly altered taste I TPN or PEG indicated NA Mucositis: Comments: Increasing pain 4-7-8/10, still able to swallow. Not convinced Maal/lido effective, uses oxycodone/RX. Current Pain Regimen: tylenol prn, oxycodone prn, Maal/lido PE: patchy mucositis posterior oropharynx. tongue and sft palate areas of Gr 2-3 painful mucositis Patchy Gr 3 altered po intake due to pain Confluent mucosits; severe pain, difficult to adequately take nutrition po Dysphagia: Alimentation: 1. By mouth: all by mouth, switching to softer foods : Gr 3 , altered oral intake Try oxycodone 20 min 4-6 times a day before eating. Maal/lido 10 min prior tointervening SOFT//LIQUID food intake Weight : gained 2 # Larynx: Comments: 0 1 2 3 4 No change from baseline Mild or intermittent voice change; fully understandable, self- resolves Moderate or persistent voice change, able to vocalize; otalgia/ sore throat not requiring narcotic Whispered speech, throat pain/otalgia requiring narcotic Marked dyspnea, stridor or hemoptysis with trach or intubation necessary Filed Vitals: 03/12/12 0800 BP: 121/77 Pulse: 72 Temp: 37 ??C (98.6 ??F) Resp: 16 Impression : Moderate toxicity, with increasing mucositis, xerostomia. still not interested in using PEG yet, followed by field mechanic. Plan: Continue RT per prescription Pain control: Tylenol prn Oxycodone prn Maal/lido Skin: Jeans cream BID Mucositis: Pain control: see above Oral hygiene consisting of baking soda/salt rinse at least 8 times daily BMX prn Alimentation: field mechanic following No Known Allergies Medications at End of Encounter hydrocortisone 1 % cream (Taking) Apply topically as needed. alum-mag hydroxide-simeth (MAALOX) 200-200-20 mg/5 mL suspension (Taking) Take 15 mLs by mouth as needed. Saliva Stimulant Agents Comb.3 (BIOTENE MOISTURIZING MOUTH) [place] (Taking) by Mucous Membrane route as needed. Indications: self Number of times this order has been changed since signin Order Audit Malone SALIVA STIMULANT AGENTS COMB.3 (BIOTENE MOISTURIZING MOUTH MM) (Taking) by Mucous Membrane route asneeded. Number of times this order has been changed since signin Order Audit Malone acetaminophen (TYLENOL) 160 mg/5 mL liquid (Taking) Take 15 mg/kg/dose by mouth every 4 hours as needed. FLUoxetine (PROZAC) 20 mg capsule (Taking) Take by mouth daily. cholecalciferol, Vitamin D3, 400 unit tablet (Taking) Take 400 Units by mouth daily. omeprazole (PRILOSEC) 20 mg capsule (Taking) Take 20 mg by mouth daily. metoprolol succinate (TOPROL-XL) 100 mg XL tablet (Taking) Take 50 mg by mouth daily. amlodipine-atorvastatatin (CADUET) 5-20 mg per tablet (Taking) Take 1 tablet by mouth daily. rosuvastatin (CRESTOR) 10 mg tablet (Taking) Take 10 mg by mouth daily. doxazosin (CARDURA) 2 mg tablet (Taking) Take 2 mg by mouth nightly. levothyroxine (SYNTHROID) 137 mcg tablet (Taking) Take 137 mcg by mouth daily. augmented betamethasone dipropionate (DIPROLENE-AF) 0.05 % ointment (Taking) Apply topically 2 times daily. LORazepam (ATIVAN) 0.5 mg tablet Take 1 tablet by mouth daily as needed for Anxiety (prior to radiation treatment). vitamin E 400 unit capsule Take 400 Units by mouth daily. B Complex-Vitamin C-Folic Acid (NEPHROCAP) 1 mg capsule Take 1 capsule by mouth daily. ascorbic acid (VITAMIN C) 500 documented in this encounter Plan of Treatment Upcoming Encounters Date Type Department Care Team (Late st Contact Info) Description 05/24/2025 11:00 AM EDT Office Visit Radiation Oncology at [address] [phone] Jesse Mcmahan MD [facility] [address] documented as of this encounter Visit Diagnoses Diagnosis Tongue cancer- Primary Malignant neoplasm of tongue, unspecified site documented in this encounter Care Teams Print Press Operator Relationship Specialty Start Date End Date Bj Alves MD [address] [place] [phone] PCP - General 06/25/10 04/02/23 documented as of this encounter
--- OUTSIDE RECORDS SUMMARY | 2024-08-01 15:30 | XMS_ITS | Encounter Summary ---
Author Organization [facility] [place] [address] Care Team Providers Care Field Sales Consultant Name Role Phone Bj Alves MD Primary Care Provider [phone] Reason for Visit * Reason Comments Chemotherapy Encounter Details Date Type Department Care Team (Tobin st Contact Info) Description 03/30/2012 11:00 AM EDT Office Visit Hematology Oncology at [address] [phone] CLINIC, DR AMARAL HEM/ONC Head and neck [...] Sign Reading Time Taken Comments Blood Pressure 128/77 03/30/2012 2:05 PM EDT Pulse 91 03/30/2012 2:05 PM EDT Temperature 36.7 ??C (98.1 ??F) 03/30/2012 2:05 PM ED T Respiratory Rate 18 03/30/2012 2:05 PM EDT Oxygen Saturation 95% 03/30/2012 2:05 PM EDT Inhaled Oxygen Concentration - - Weight - - Height - - Body Mass Index - - documented in this encounter Progress Notes * Heather Momin [facility] - 03/30/2012 3:18 PM EDT * Pharmacist Waste Documentation * Drug: ndc [id number] (Cetuximab) Date Administered: 03/30/12 Time: 3:18 PM Amount Pharmacy Discarded: 37 mg * Tash Louis RN - 03/30/2012 11:05 AM EDT INFUSION THERAPY ADMINISTRATION NOTES DIAGNOSIS: Oropharangeal Cancer CYCLE: week #7 REASON FOR VISIT: Cetuximab concurrent with XRT RTOG PROTOCOL #1016 SUBJECTIVE Salvador states Dr. Underwood increased his pain medication today to help him with his painful swallowing. States has now stopped working, and is having a new car driver whenever he comes to the clinic. OBJECTIVE LAB DATA: WBC 6.8/Hgb 13.1/Hct 38.5/Plt 285/ANC 5.67/Potassium 3.6/ Na 135 ([facility] 03/29/2012) IV ACCESS: Mediport accessed at [facility]. Pre administration: Chemotherapy orders independently verified for drug name, route, and dosage per patient's height, weight and BSA by Tash Louis RN and Flaquita Sterling RN . REACTIONS (DESCRIPTION, TIME, INTERVENTION AND EFFECTIVENESS) none RTOG PROTOCOL 1016~ VITAL SIGNS(pre infusion and 60 min post infusion) Pre-administration- BP 108/84; HR 100; Resp 18; T 37degrees; Pox 97% 60 min Post-infusion- BP 128/77; HR 91; Resp 18; T 36.7 degrees; Pox 95% ASSESSMENT Sebastian was awake, alert and he tolerated treatment well. PLAN Return to clinic daily for XRT and weekly for Cetuximab. Call in interim with any questions or concerns. Patient was instructed on using g-tube for added hydration & nutrition. documented in this encounter Plan of Treatment Upcoming Encounters Date Type Department Care Team (Late st Contact Info) Description 05/24/2025 11:00 AM EDT Office Visit Radiation Oncology at [address] [phone] Jesse Mcmahan MD [facility] [place] [address] documented as of this encounter Visit Diagnoses Diagnosis Head and neck cancer- Primary Malignant neoplasm of head, face, and neck documented in this encounter Administered Medications Inactive Administered Medications - up to 3 most recent administrations Medication Order MAR Action Action Date Dose Rate Site cetuximab (ERBITUX) chemo infusion 563 mg 563 mg, Intravenous, ONCE, 1 dose, On Thu03/30/12 at 1100, Administer over 1 Hours, Max infusion rate = 300 mL/hr. Product is dispensed in glass. Given 03/30/2012 11:54 AM EDT 563 mg dexamethasone sodium (PF) 10 mg in sodium chloride 0.9% 51 mL IVPB Intravenous, at 204 mL/hr, ONCE, On Thu03/30/12 at 1100, 1 dose, Pre cetuximab Given 03/30/2012 10:40 AM EDT 20 4 mL/hr diphenhydrAMINE (BENADRYL) 25 mg in sodium chloride 0.9% 50.5 mL IVPB Intravenous, at 202 mL/hr, ONCE, On Thu03/30/12 at 1100, 1 dose, Pre cetuximab Given 03/30/2012 11:05 AM EDT 20 2 mL/hr famotidine (PEPCID) tablet 20 mg 20 mg, Oral, ONCE, 1 dose, On Thu03/30/12 at 1145, Routine Given 03/30/2012 11:00 AM EDT 20 mg sodium chloride 0.9% 1,000 mL with magnesium sulfate 1 g infusion at 1,000 mL/hr, Intravenous, ONCE, 1 dose, On Thu03/30/12 at 1200, Infuse after Cetuximab New Bag 03/30/2012 1:00 PM EDT 1000 mL/hr documented in this encounter Care Teams Field Sales Consultant Relationship Specialty Start Date End Date Bj Alves MD [address] [place] [phone] PCP - General 06/25/10 04/02/23 documented as of this encounter
--- OUTSIDE RECORDS SUMMARY | 2024-08-01 15:30 | XMS_ITS | Encounter Summary ---
Author Organization [facility] [place] [address] Care Team Providers Care Director Information Security Name Role Phone Ash Hernandez MD Primary Care Provider [phone] Reason for Visit * Reason Comments Radiation Follow-up Encounter Details Date Type Department Care Team (Late st Contact Info) Description 04/16/2012 1:00 PM EDT Follow-Up Radiation Oncology at [address] [phone] Jesse Mcmahan MD [facility] [place] [address] Cancer of base of tongue (Primary Dx); Head and neck cancer Discharge [...] Sign Reading Time Taken Comments Blood Pressure 118/86 04/16/2012 12:53 PM EDT Pulse 99 04/16/2012 12:53 PM EDT Temperature 36.1 ??C (96.9 ??F) 04/16/2012 12:53 PM E DT Respiratory Rate 16 04/16/2012 12:53 PM EDT Oxygen Saturation 97% 04/16/2012 12:53 PM EDT Inhaled Oxygen Concentration - - Weight 90.7 kg (200 lb) 04/16/2012 12:53 PM EDT Height - - Body Mass Index 29.52 04/06/2012 9:09 AM EDT documented in this encounter Progress Notes * Jesse Mcmahan MD - 04/16/2012 1:41 PM EDT FOLLOW UP VISIT NOTE Primary [...] ?? 12/09/11 CT H&N with contrast ([facility]): Mixed attenuation mass with lare low density areas suggesting necrotic change present deep to anterior aspect L SCM. Mass smoothly marginated, max 3.3 x 5.2 cm. ?? 11/27/11 PET-CT ([facility] Despite premedication, severe claustrophobia allowed this can [...] completed radiotherapy on 04/06/12 and returns for follow up. Since his last visithe was admitted to [facility] with fever, nausea, and failure to thrive. He was found to be hypomagnesemicand hypokalemic and his electrolytes were corrected. His low grade fever was felt to be related to his oropharyngeal mucositis. He was having difficulty with TFs at home, and he has now been started on overnight pump feeds. Since discharge he says that he has been doing well. He has been having no difficulty with o/n TFs, drinking water by mouth throughout the day as well as via his PEG tube. He continues to have some skin and oropharyngeal discomfort. Skin: Comments: Improving desquamation on skin fold of neck Current Regimen: Jeans cream/Aquaphor BID, Silvadene 0 1 2 3 4 No change [...] volume liquids, soft solids. Current Pain Regimen: Oxycodone prn, using 10 mg every 4 hours PE: extensive patchy mucositis oropharynx. No thrush. 0 1 2 3 4 No change from baseline Injection/ may experience mild pain not requiring analgesic Patchy mucositis & analgesia indicated, altered po intake Confluent mucosits; severe pain, unable to adequatelytake nutrition po Life threatening consequences Dysphagia: Alimentation: 1. By mouth: only liquids by mouth 2. via PEG: per [employer] ticket checker.TFs overnight, tolerating well. . 0 1 2 3 4 No change from baseline Sx without dietary alteration Moderate sx, altered oral intake Inability toaliment orally, TPN or PEG indicated NA Weight : 228 lbs initial Change: 206 => 200 Larynx: Comments: 0 1 2 3 4 No change from baseline Mild or intermittent voice change; fully understandable, self- resolves Moderate or persistent voice change, able to vocalize; otalgia/ sore throat not requiring narcotic Whispered speech, throat pain/otalgia requiring narcotic Marked dyspnea, stridor or hemoptysis with trach or intubation necessary Other: ?? Nausea: Zofran, compazine. Occasional intermittent nausea. ?? Constipation: not an issue. ?? Insomnia: ativan 0.5 mg, ambien. Not sleeping at all. Discussed temporary increase in ativan, will initiate. VS: Filed Vitals: 04/16/12 1253 BP: 118/86 Pulse: 99 Temp: 36.1 ??C (96.9 ??F) Resp: 16 Impression: Interval hospitalization secondary to poor intake resulting in electrolyte imbalance, dehydration. Now stable, tolerating TFs. Continued mucositis, ageusia, occasional nausea. Insomnia bothersome. Pain control sufficient. Plan: ?? Pain control: ?? Oxycodone ?? Skin: ?? Aquaphor BID, silvadene ?? Mucositis: ?? Pain control: see above ?? Oral hygiene consisting of baking soda/salt rinse at least 8 times daily ?? BMX prn ?? Alimentation: [employer] ticket checker following ?? TFs overnight ?? Nausea: ?? Compazine prn ?? Zofran prn ?? Electrolyte imbalance: CMP, Mg today ?? FU: follow up twice weekly. * Paulo Vocational Case Manager - 04/16/2012 1:28 PM EDT * Paulo Vocational Case Manager - 04/16/2012 1:28 PM EDT documented in this encounter H&P Notes * Paulo Vocational Case Manager - 04/16/2012 1:28 PM EDT documented in this encounter Procedure Notes * Provider, Scanning - 04/16/2012 3:27 PM EDTAssociated Order(s): SCAN DOC: LAB documented in this encounter Miscellaneous Notes * Miscellaneous - Paulo, Vocational Case Manager - 04/19/2012 1:48 PM EDT * Discharge Summary - Paulo, Vocational Case Manager - 04/16/2012 1:28 PM EDT documented in this encounter Plan of Treatment Upcoming Encounters Date Type Department Care Team (Late st Contact Info) Description 05/24/2025 11:00 AM EDT Office Visit Radiation Oncology at [address] [phone] Jesse Mcmahan MD [facility] [place] [address] documented as of this encounter Procedures Procedure Name Priority Date/Time Associated Diagnosis Comments LAB SCAN 04/16/2012 3:27 PM EDT documented in this encounter Results * SCAN DOC: LAB (04/16/2012 3:27 PM EDT) Narrative 04/16/2012 3:27 PM EDT Procedure Note Provider, Scanning - 04/16/2012 3:27 PM EDT Scanning Provider MEDIA MGR SCAN EXT O RDR/RSLT documented in this encounter Visit Diagnoses Diagnosis Cancer of base of tongue- Primary Malignant neoplasm of base of tongue Head and neck cancer Malignant neoplasm of head, face, and neck documented in this encounter Care Teams Director Information Security Relationship Specialty Start Date End Date Ash Hernandez MD [address] [place] [phone] PCP - General 06/25/10 04/02/23 documented as of this encounter
--- OUTSIDE RECORDS SUMMARY | 2024-08-01 15:30 | XMS_ITS | Encounter Summary ---
Author Organization [facility] [place] [address] Care Team Providers Care Crepe Sole Wire Brusher Name Role Phone Bj Alves MD Primary Care Provider [phone] Reason for Visit * Reason Comments Chemotherapy Cetuximab Week # 8-P ROTOCOL RTOG 1016 Encounter Details Date Type Department Care Team (Late st Contact Info) Description 04/06/2012 11:30 AM EDT Office Visit Hematology Oncology at [address] [phone] CLINIC, DR AMARAL HEM/ONC Head and neck [...] Reading Time Taken Comments Blood Pressure 128/78 04/06/2012 1:45 PM EDT Pulse 98 04/06/2012 1:45 PM EDT Temperature 37.5 ??C (99.5 ??F) 04/06/2012 1:45 PM ED T Respiratory Rate 18 04/06/2012 1:45 PM EDT Oxygen Saturation 99% 04/06/2012 1:45 PM EDT Inhaled Oxygen Concentration - - Weight - - Height - - Body Mass Index - - documented in this encounter Progress Notes * Heather Momin T, [facility] - 04/06/2012 2:39 PM EDT * Pharmacist Waste Documentation * Drug: [facility] [id number] (Cetuximab) Date Administered: 04/06/12 Time: 2:40 PM Amount Pharmacy Discarded: 37 mg * Cordelia Schumacher RN - 04/06/2012 10:20 AM EDT INFUSION THERAPY ADMINISTRATION NOTES DIAGNOSIS: Oropharangeal Cancer CYCLE #: week #8 (FINAL) REASON FOR VISIT: Cetuximab concurrent with XRT -FINAL WEEK RTOG PROTOCOL #1016 SUBJECTIVE Salvador offers that he is having a harder time swallowing, and that his throat is sore, he is nauseated today, and complains of feeling as if he is going to vomit. OBJECTIVE LAB DATA: WBC 8.02/Hgb 13.3/Hct 40.6/Plt 318/ANC 6.54/Potassium 3.7/Magnesium 1.9 ([facility] 04/06/2012) IV ACCESS: Mediport accessed at [facility]. Pre administration: Chemotherapy orders independently verified for drug name, route, and dosage per patient's height, weight and BSA by Cordelia Schumacher RN and Flaquita Sterling RN . Added Zofran today IV for patient's complaints of nausea. Pepcid given IV today related to patient's difficulty swallowing. REACTIONS (DESCRIPTION, TIME, INTERVENTION AND EFFECTIVENESS) none RTOG PROTOCOL 1016~ VITAL SIGNS(pre infusion and 60 min post infusion) Eet-rvrzqjquncpzso-K 37.7~P 111~R 16~BP 134/87~Sat 95% 60 min [id number] 37.5~P 98~R 18~BP 128/78~Sat 96% ASSESSMENT Sebastian was awake, alert and he tolerated treatment well. He was accompainied by his today. PLAN Return to clinic tomorrow for BID XRT, hydration tomorrow in infusion clinic. Call in interim with any questions or concerns. Patient was instructed on using g-tube for added hydration & nutrition. He is scheduled for hydration per Dr. Underwood. documented in this encounter Plan of Treatment Upcoming Encounters Date Type Department Care Team (Late st Contact Info) Description 05/24/2025 11:00 AM EDT Office Visit Radiation Oncology at [address] [phone] Jesse Mcmahan MD [facility] DR [place] [address] documented as of this encounter Visit Diagnoses Diagnosis Head and neck cancer- Primary Malignant neoplasm of head, face, and neck documented in this encounter Administered Medications Inactive Administered Medications - up to 3 most recent administrations Medication Order MAR Action Action Date Dose Rate Site cetuximab (ERBITUX) chemo infusion 563 mg 563 mg, Intravenous, ONCE, 1 dose, On Thu04/06/12 at 1130, Administer over 1 Hours, Max infusion rate = 300 mL/hr. Product is dispensed in glass. Given 04/06/2012 11:31 AM EDT 563 mg dexamethasone sodium (PF) 10 mg in sodium chloride 0.9% 51 mL IVPB Intravenous, at 204 mL/hr, ONCE, On Thu04/06/12 at 1130, 1 dose, Pre cetuximab Given 04/06/2012 10:05 AM EDT 204 mL/h r diphenhydrAMINE (BENADRYL) 25 mg in sodium chloride 0.9% 50.5 mL IVPB Intravenous, at 202 mL/hr, ONCE, On Thu04/06/12 at 1130, 1 dose, Pre cetuximab Given 04/06/2012 10:30 AM EDT 202 mL/h r famotidine (PEPCID) 20 mg in sodium chloride 0.9% 52 mL IVPB Intravenous, at 208 mL/hr, ONCE, On Thu04/06/12 at 1030, 1 dose Given 04/06/2012 10:50 AM EDT 208 mL/hr ondansetron (ZOFRAN) 16 mg in sodium chloride 0.9% 58 mL IVPB Intravenous, at 232 mL/hr, ONCE, On Thu04/06/12 at 1045, 1 dose Given 04/06/2012 11:10 AM EDT 232 mL/hr sodium chloride 0.9% 1,000 mL with magnesium sulfate 1 g infusion at 1,000 mL/hr, Intravenous, ONCE, 1 dose, On Thu04/06/12 at 1130, Infuse after Cetuximab New Bag 04/06/2012 12:40 PM EDT 1000 mL/hr documented in this encounter Care Teams Crepe Sole Wire Brusher Relationship Specialty Start Date End Date Bj Alves MD [address] [place] [phone] PCP - General 06/25/10 04/02/23 documented as of this encounter
--- OUTSIDE RECORDS SUMMARY | 2024-08-01 15:30 | XMS_ITS | Encounter Summary ---
[place] [address] Care Team Providers Care Coin Box Inspector Name Role Phone Bj Alves MD Primary Care Provider [phone] Encounter Details Date Type Department Care Team (Late st Contact Info) Description 03/15/2012 Notes Only [place] [phone] Salud Amaro, RN Social History Tobacco Use [...] encounter Progress Notes * Salud Amaro - 03/15/2012 5:32 PM EDT Images from the original note were not included. 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 Salvador Wyatt A# [id number] RTOG 1016 ARM 2 Cetuximab/RT 03/15/2012 Week 4 RT Infusion # 5 Cetuximab I have reviewed Mr. Modi???s labs drawn today. (See Below) I have reviewed the Flowsheet and see that at the point in time, Salvador???s wt is down slightly: 3 lbs from pre-tx baseline (approx. 1.3 %) I have read last weeks??? noted of Dr. Underwood and Dr. Mcmahan???s and mucositis and rash do not appear =/> Grade 3 as of 03/12/2012. At this point in time, I do not see any toxicities that require a Cetuximab dose modification or delay. In speaking with Mr. Modi, at 1715 today, he indicated that he is being now to feel the cumulative effects of treatment with fatigue and throat pain. Salvador states he may discontinue working and is taking his pain medication when needed. LABS OF NOTE: Na 136 K+ 3.6 Creatinine: 1.0 If you have any questions or concerns, PLEASE give me a call tomorrow before you treat Salvador and I will be glad to help. Thank you all for your great support and help with Salvador and his treatment via RTOG 1016. Ramona Amaro WIND TURBINE ENGINEER CCRP RTOG Epic Application Coordinator/Research Nurse [address] [phone] office; pager: [phone] Assessment: Stable Plan: ?? Monitor labs; support per MD ?? Continue treatment per RTOG 1016 ?? Post-Chemo Call planned Salud Amaro WIND TURBINE ENGINEER CCRP RTOG Research Nurse documented in this encounter Plan of Treatment Upcoming Encounters Date Type Department Care Team (Late st Contact Info) Description 05/24/2025 11:00 AM EDT Office Visit Radiation Oncology at [address] [phone] Jesse Mcmahan MD [facility] [place] [address] documented as of this encounter Visit Diagnoses Not on filedocumented in this encounter Care Teams Coin Box Inspector Relationship Specialty Start Date End Date Bj Alves MD [address] [place] [phone] PCP - General 06/25/10 04/02/23 documented as of this encounter
--- OUTSIDE RECORDS SUMMARY | 2024-08-01 15:30 | XMS_ITS | Encounter Summary ---
Author Organization [facility] Address [facility] [place] [address] Care Team Providers Care Vacuum Evaporation Operator Name Role Phone Bj Alves MD Primary Care Provider [phone] Encounter Details Date Type Department Care Team (Latest Contact Info) Description 04/16/2012 Unscheduled Encounter Hematology Oncology at [address] [phone] Sabine Nash, MANJU [facility] [place] [address] Dietary surveillance and counseling (Primary Dx) Social [...] Progress Notes * Sabine Nash, MANJU - 04/16/2012 1:42 PM EDT [facility] Dietitian Follow Up Seen by: Gisele Nash MS, RD, LD Patient, Dx, and Tx: Pt had a rough weekend. 04/02/12 went to [facility] ED. Was not admitted, given IVF and ABX and sent home. Pt was admitted to [facility] on Thursday,04/10/12. He was discharged on , 04/14/12. 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 Patient has been enrolled on RTOG 1016 andrandomized to the radiation therapy plus Erbitux arm. Assessment: Ht: 175.3 cm Wt: 91.27 kg on 04/16/12: Decrease; 2.4% in one week: SIGNIFICANT Previous Wts: 93.441 kg on 04/09/12 94.38 kg on [...] about 4-6 cans/day in to me. P.O. Limited to water, po meds at his time G-Tube: Nocturnal pump, runs at 200 cc/10 hours. Flush with 100 cc of water before and after feeding Teas, vitamins, or other nutritional supplements: D3 Food allergies or avoidances: knfa Appetite none. Nausea: Compazine on board and takes when needed Vomiting: denies Chewing: denies Swallowing: Painful, Jocelin, fentynal patch on board, BMX on board, but says this doesn't really numbhis throat, but it does numb everything else. [...] The above recommendations meet 100% of pt's CRITICAL CARE NURSE PRACTITIONER's for kcal, vitamins, and minerals. -- Recommend [...] recipe Other: Orders will be faxed to [facility] for home supply delivery. Monitoring and Evaluation: Will follow up with Mr. Wyatt in weekly while he is going through treatment. documented in this encounter Plan of Treatment Upcoming Encounters Date Type Department Care Team (Late st Contact Info) Description 05/24/2025 11:00 AM EDT Office Visit Radiation Oncology at [address] [phone] Jesse Mcmahan MD [facility] [place] [address] documented as of this encounter Visit Diagnoses Diagnosis Dietary surveillance and counseling- Primary documented in this encounter Care Teams Vacuum Evaporation Operator Relationship Specialty Start Date End Date Bj Alves MD [address] [place] [phone] PCP - General 06/25/10 04/02/23 documented as of this encounter
--- OUTSIDE RECORDS SUMMARY | 2024-08-01 15:31 | XMS_ITS | Encounter Summary ---
[facility] [place] [address] Care Team Providers Care Structural Metal Worker Name Role Phone Ash Hernandez MD Primary Care Provider [phone] Reason for Visit * Reason Comments Hearing Loss Encounter Details Date Type Department Care Team (Late st Contact Info) Description 02/03/2012 8:45 AM EDT Office Visit Audiology at [address] [phone] Yasmin Krishnan AUD Abnormal auditory perception, unspecified (Primary Dx) Discharge Disposition: Home Social History [...] of this encounter Progress Notes * Yasmin Krishnan AUD - 02/03/2012 10:19 AM EDT HISTORY: Patient: Sebastian Wyatt Age: 56 y.o. Type of Visit: Audiologic evaluation Reason for visit: Baseline audiogram prior to chemotherapy and radiation Mr. Wyatt's history includes the following: ?? Prior audiologic history/ evaluations: none. ?? /medical history: Mr. Wyatt denies pain, vertigo, or fullness, but does report some intermittent tinnitus. 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 He is right handed so his gun tends to be closer to the left ear. Mr. 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 ?? Familial history of childhood sensorineural hearing loss: none known. ?? Ear health, middle ear infections: no significant history of middle ear infections/fluid ?? Auditory responsiveness: Mr. Wyatt feels that he is hearing well, but reports that his feels he has selective hearing. EVALUATION: (please refer to audiogram) Results: Bilaterally: normal hearing 250-8000Hz, with thresholds slightly worse in the left than the right. IMPRESSIONS: Today's testing results indicate hearing sensitivity within normal limits for each ear. Word recognition abilities are excellent bilaterally. Mr. Wyatt' hearing sensitivity is considered adequate at this time to support communication purposes. To be noted, Otoacoustic emissions were reduced to absent for the left ear and were present for theright ear, which supports history of noise exposure. Today???s results and the following recommendations were shared with Mr. Wyatt. He requested records be sent to him as he may seen an heavy duty press operator closer to home for follow up. RECOMMENDATIONS: 1. Medical management as necessary 2. Audiological evaluation per protocols or should Mr. Wyatt feel hearing change or acquire tinnitus. It was a pleasure to see Mr. Wyatt today. Please do not hesitate to contact this Section at [phone] if there are questions. Dhiraj Comer,NEPTALI-A Clinical Structures Engineer [facility] CC: Sebastian Wyatt [address] [place] [phone] ASH HERNANDEZ MD documented in this encounter Plan of Treatment Upcoming Encounters Date Type Department Care Team (Late st Contact Info) Description 05/24/2025 11:00 AM EDT Office Visit Radiation Oncology at [address] [phone] Jesse Mcmahan MD [facility] [place] [address] documented as of this encounter Visit Diagnoses Diagnosis Abnormal auditory perception, unspecified- Primary documented in this encounter Care Teams Structural Metal Worker Relationship Specialty Start Date End Date Ash Hernandez MD [address] [place] [phone] PCP - General 06/25/10 04/02/23 documented as of this encounter
--- OUTSIDE RECORDS SUMMARY | 2024-08-01 15:31 | XMS_ITS | Encounter Summary ---
Author Organization [facility] [place] [address] Care Team Providers Care Counter Cutter Name Role Phone Bj Alves MD Primary Care Provider [phone] Reason for Visit * Reason Comments Head And Neck Cancer Encounter Details Date Type Department Care Team (Late st Contact Info) Description 03/09/2012 10:00 AM EDT Follow-Up Hematology Oncology at [address] [phone] Rakesh Underwood MD Head and [...] Sign Reading Time Taken Comments Blood Pressure 143/83 03/09/2012 9:55 AM EDT Pulse 68 03/09/2012 9:55 AM EDT Temperature 36.5 ??C (97.7 ??F) 03/09/2012 9:55 AM ED T Respiratory Rate 18 03/09/2012 9:55 AM EDT Oxygen Saturation 98% 03/09/2012 9:55 AM EDT Inhaled Oxygen Concentration - - Weight 104 kg (229 lb 4.5 oz) 03/09/2012 9:55 AM EDT Height 175.3 cm (5' 9.02) 03/09/2012 9:55 AM ED T Body Mass Index 33.84 03/09/2012 9:55 AM EDT documented in this encounter Progress Notes * Rakesh Underwood MD - 03/09/2012 11:04 AM EDT Diagnosis: 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 Patient has been enrolled on RTOG 1016 andrandomized to the radiation therapy plus Erbitux arm. Subjective: Salvador comes in today for week 4 Erbitux. His scalp rashes about the same. He is a bit more of an actiniform rash on his cheeks but this is still minimal. Has a little bit of a sore spot at the tip ofhis tongue that he feels may actually be some of the same rash. He notes his scrotal rash is now under control with the cream and this is not checked today. He does have some fatigue and is noticing a little bit of soreness with swallowing in his left throat. The left neck mass has continued to getsmaller in size although not at the same rate it did initially. (It should be noted the mass went down about 50% with the first Erbitux prior to starting the radiation therapy) bowel function is fineand is really not having any other difficulties. He does note his appetite at night it is a lot more than usual he is having to try to curtail how much he eats in the evenings Review of Systems Constitutional: Negative for fever, [...] no drainage or sinus tenderness Throat: Lips, mucosa, and tongue normal; teeth and gums normal Neck: Supple, symmetrical, trachea midline, there is [...] Laboratory today is reviewed. White count is 8.6 hemoglobin 12.8 hematocrit 37.4 platelet count 223ANC 6.15. CMP shows a normal creatinine of 0.7 glucose is 106 albumin is staying up at 4.0 and liver tests are completely normal with a bilirubin of 0.6 and normal alkaline phosphatase of 85. Magnesium level is staying in the normal range at 1.8 Assessment/Plan: Salvador has a locally advanced squamous [...] this point. We'll go ahead with week 4 Erbitux today and see him back in a week with a CBC CMP and magnesium level prior to the anticipated week 5 of Erbitux.. He'll let us know if issues or problems develop in the interim. documented in this encounter Procedure Notes * Provider, Scanning - 03/22/2012 3:53 PM EDTAssociated Order(s): SCAN DOC: LAB * Provider, Scanning - 03/15/2012 4:13 PM EDTAssociated Order(s): SCAN DOC: LAB documented in this encounter Plan of Treatment Upcoming Encounters Date Type Department Care Team (Late st Contact Info) Description 05/24/2025 11:00 AM EDT Office Visit Radiation Oncology at [address] [phone] Jesse Mcmahan MD [facility] [place] [address] documented as of this encounter Procedures Procedure Name Priority Date/Time Associated Diagnosis Comments LAB SCAN 03/22/2012 3:53 PM EDT LAB SCAN 03/15/2012 4:13 PM EDT documented in this encounter Results * SCAN DOC: LAB (03/22/2012 3:53 PM EDT) Narrative 03/22/2012 3:53 PM EDT Procedure Note Provider, Scanning - 03/22/2012 3:53 PM EDT Scanning Provider MEDIA MGR SCAN EXT O RDR/RSLT * SCAN DOC: LAB (03/15/2012 4:13 PM EDT) Narrative 03/15/2012 4:13 PM EDT Procedure Note Provider, Scanning - 03/15/2012 4:13 PM EDT Scanning Provider MEDIA MGR SCAN EXT O RDR/RSLT documented in this encounter Visit Diagnoses Diagnosis Head and neck cancer- Primary Malignant neoplasm of head, face, and neck documented in this encounter Care Teams Counter Cutter Relationship Specialty Start Date End Date Bj Alves MD [address] [place] [phone] PCP - General 06/25/10 04/02/23 documented as of this encounter
--- OUTSIDE RECORDS SUMMARY | 2024-08-01 15:31 | XMS_ITS | Encounter Summary ---
Author Organization [facility] [place] [address] Care Team Providers Care Sleeve Setter Safety Stitch Name Role Phone Bj Alves MD Primary Care Provider [phone] Reason for Visit * Reason Comments Head And Neck Cancer Encounter Details Date Type Department Care Team (Late st Contact Info) Description 02/24/2012 9:30 AM EDT Follow-Up Hematology Oncology at [address] [phone] Rakesh Underwood MD Head and neck cancer Social History Tobacco [...] Sign Reading Time Taken Comments Blood Pressure 137/86 02/24/2012 9:17 AM EDT Pulse 65 02/24/2012 9:17 AM EDT Temperature 36.5 ??C (97.7 ??F) 02/24/2012 9:17 AM ED T Respiratory Rate 16 02/24/2012 9:17 AM EDT Oxygen Saturation 98% 02/24/2012 9:17 AM EDT Inhaled Oxygen Concentration - - Weight 103.5 kg (228 lb 2.8 oz) 02/24/2012 9:17 AM EDT Height 175.3 cm (5' 9.02) 02/24/2012 9:17 AM ED T Body Mass Index 33.68 02/24/2012 9:17 AM EDT documented in this encounter Progress Notes * Rakesh Underwood MD - 02/24/2012 9:59 AM EDT Diagnosis: 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 Patient has been enrolled on RTOG 1016 andrandomized to the radiation therapy plus Erbitux arm. Subjective: Padmini comes in today for week to Erbitux. His first week of Erbitux was exactly one week ago and heis scheduled to start radiation therapy today. He is a little bit anxious about that because of some fears and concerns about claustrophobia and the radiation treatment mask holding him still. He believes he can handle that however. As far as last week's Erbitux goes he has really not had any ill effects from that. He noted a little bit of redness in his face and that it felt a bit warmer but does not have an overt rash. He had a little bit of nausea on Thursday morning and took a Compazine with good relief for that. The tumor is definitely smaller by more than 50% and he is very pleased with that. Review systems is otherwise c ompletely negative. Review of Systems Constitutional: Negative for fever, chills, activity change, fatigue and unexpected weight change. HENT: Negative for sore throat, mouth sores and trouble swallowing. Eyes: Negative. [...] Supple, symmetrical, trachea midline, there is a 4 cm node palpable in the left anterior cervical triangle it is flatter and definitely much smaller. The node size was measured with a ruler today, thyroid: not enlarged, symmetric, no tenderness/mass/nodules, no [...] normal, no rashes or lesions Lymph nodes: Supraclavicular, and axillary nodes normal Neurologic: Normal Laboratory today is reviewed. CBC shows a white count of 9.2 hemoglobin 12.7 and platelet count of 228. ANC was 6.01. CMP shows a normal glucose of 88 creatinine of 0.7 calcium was 9.2 electrolytes completely normal with potassium 3.8. Magnesium was 1.9 all liver tests were normal with a bilirubin of 0.7 and ALP of 87 and SGOT of 28 Assessment/Plan: Clem has a locally advanced squamous cell carcinoma of the base of the tongue with left cervical metastasis. He tolerated week one quite well and has a normal performance status at 100% and no discomfort. His lab is fine for week 2 treatment. He is definitely shown a good response with by my estimate perhaps even a 50% reduction in the tumor with week one Erbitux. We'll go ahead with treatment today and he'll start his radiation per protocol. We'll see him back in a week with a CBC CMP and magnesium level. He will call if any problems develop in the interim. documented in this encounter Plan of Treatment Upcoming Encounters Date Type Department Care Team (Late st Contact Info) Description 05/24/2025 11:00 AM EDT Office Visit Radiation Oncology at [address] [phone] Jesse Mcmahan MD [facility] [place] [address] documented as of this encounter Visit Diagnoses Diagnosis Head and neck cancer Malignant neoplasm of head, face, and neck documented in this encounter Care Teams Sleeve Setter Safety Stitch Relationship Specialty Start Date End Date Bj Alves MD [address] [place] [phone] PCP - General 06/25/10 04/02/23 documented as of this encounter
--- OUTSIDE RECORDS SUMMARY | 2024-08-01 15:31 | XMS_ITS | Encounter Summary ---
Author Organization [facility] [place] [address] Care Team Providers Care Apple Peeler Operator Name Role Phone Ash Hernandez MD Primary Care Provider [phone] Reason for Visit * Reason Comments On Treatment Visit Encounter Details Date Type Department Care Team (Late st Contact Info) Description 02/27/2012 8:45 AM EDT Follow-Up Radiation Oncology at [address] [phone] Jesse Mcmahan MD [facility] [place] [address] Cancer of base of tongue (Primary Dx) [...] Sign Reading Time Taken Comments Blood Pressure 163/93 02/27/2012 8:59 AM EDT Pulse 69 02/27/2012 8:59 AM EDT Temperature 36.7 ??C (98.1 ??F) 02/27/2012 8:59 AM ED T Respiratory Rate 16 02/27/2012 8:59 AM EDT Oxygen Saturation 96% 02/27/2012 8:59 AM EDT Inhaled Oxygen Concentration - - Weight 103.4 kg (228 lb) 02/27/2012 8:59 AM EDT Height - - Body Mass Index 33.65 02/24/2012 9:17 AM EDT documented in this encounter Progress Notes * Jesse Mcmahan MD - 02/27/2012 11:06 AM EDT ON TREATMENT VISIT NOTE Primary [...] Staging: ?? 12/09/11 CT H&N with contrast ([facility]): Mixed attenuation mass with lare low density areas suggesting necrotic change present deep to anterior aspect L SCM. Mass smoothly marginated, max 3.3 x 5.2 cm. ?? 11/27/11 PET-CT ([facility]): Despite premedication, severe [...] Wyatt is currently undergoing radiation therapy at [facility]. Current treatment dose: 8 Gy in 4 fractions. Anticipated total dose: 70 Gy in 35 fractions. Evaluation of Port Verification Films: done Changes in medical condition: Skin: Physical exam: mild erythema/papular rash noted on face and scalp Comments: 0 1 2 3 4 No change from baseline Follicular, faint or dull erythema/ epilation/dry desquamation/ decreased sweating Tender or bright erythema, patchy moist desquamation/ moderate edema Confluent, moist desquamatiom other than skin folds, pitting edema Ulceration, hemorrhage, necrosis Cough: Comments: 0 1 2 3 4 No change from baseline Mild sx of dry cough, non-prescription intervention indicated Moderate sx, narcotic anti-tussive indicated, limiting instrumental ADLs Severe cough unresponsive to Rx, severe pneumonitis, intermittent 02/steroids; limiting self-care ADLs NA Dyspnea: Physical Exam: ?? Pulmonary: CTAB no w/r/r Comments: 0 1 2 3 4 No change from baseline SOB with moderate exertion SOB with minimal exertion, limiting instrumentalADLs SOB @ rest, severe pneumonitis, intermittent 02/steroids limiting self-care ADLs Life threatening consequences/ continuous 02 or assisted ventilation Esophagitis: Comments: 0 1 2 3 4 No change from baseline Mild dysphagia or odynophagia; may require topical anesthetic or non-narcotic analgesics; may require soft diet Moderate dysphagia or odynophagia; may require narcotic analgesics; may require puree or liquid diet Severe dysphagia / odynophagia with dehydration or weight loss(>15% from baseline) requiring N-G feeding tube, I.V. fluids or hyperalimentation Complete obstruction, ulceration, perforation, fistula Weight : 228 lbs initial Change: NA Other: ?? VS: Filed Vitals: 02/27/12 0859 BP: 163/93 Pulse: 69 Temp: 36.7 ??C (98.1 ??F) Resp: 16 Assessment: ?? No toxicity from RT at this time, started treatment within the last week. Cetuximab rash present. Plan: ?? Continue RT per prescription ?? Skin: Jeans cream QD ?? Pain control: no intervention needed at this time ?? Esophagitis: no intervention needed at this time ?? Cough: No intervention needed at this time ?? Alimentation: followed by migration agent, weight stable, all by mouth documented in this encounter Plan of Treatment Upcoming Encounters Date Type Department Care Team (Late st Contact Info) Description 05/24/2025 11:00 AM EDT Office Visit Radiation Oncology at [address] [phone] Jesse Mcmahan MD [facility] [place] [address] documented as of this encounter Visit Diagnoses Diagnosis Cancer of base of tongue- Primary Malignant neoplasm of base of tongue documented in this encounter Care Teams Apple Peeler Operator Relationship Specialty Start Date End Date Ash Hernandez MD [address] [place] [phone] PCP - General 06/25/10 04/02/23 documented as of this encounter
--- OUTSIDE RECORDS SUMMARY | 2024-08-01 15:31 | XMS_ITS | Encounter Summary ---
Author Organization [facility] [place] [address] Care Team Providers Care Farm Helper Name Role Phone Bj Alves MD Primary Care Provider [phone] Reason for Visit * Reason Comments Dysphagia Encounter Details Date Type Department Care Team ([facility] st Contact Info) Description 02/03/2012 10:00 AM EDT Office [place] [phone] Rio Lugo, OPS ANALYST Bj Alves MD [address] [place] [phone] Dysphagia, unspecified Discharge Disposition: Home Social History Tobacco Use [...] of this encounter Progress Notes * Rio Lugo, OPS ANALYST - 02/03/2012 11:33 AM EDT Speech-Language Pathology Office Swallow Evaluation 02/03/2012 11:21 AM 1955 Referring MD: Jesse Mcmahan Date seen by referring MD: 01/22/12 Total Treatment Time: 46 min. Total Timed Code Treatment: 0 min. Certification Period: N/A History: Patient is a 56 y.o. male who has been diagnosed with SCC of left base of tongue (cT1-2 N2a-b M0). XRT is being planned. Speech consulted for swallow evaluation and pre-XRT swallow exercise program teaching. For complete history see physician's H&P. PMH: Past Medical History Diagnosis Date ??? Acid reflux ??? Thyroid dysfunction ??? Arthritis ??? Psoriasis S: Pt. conatacted, alert. Sitting upright. Oriented x 4. Follows directions. Pt. denies pain at this time. O: Current diet: Regular diet with regular liquids. Respiratory Status: Currently on RA. Utilized BiPAP at night. Feeding / Oral Care Status: Independent. Oral / Laryngeal Mechanism Clinical Assessment: Lingual: Tongue protrudes midline. Normal lingual ROM in all planes. Normal articulation in conversation. Labial: Equal protrusion and retraction bilaterally. Normal articulation in conversation. Velar: Uvula is midline. Velar elevation is present. Velo-pharyngeal seal is functional. Sensation: Grossly intact. Vocal fold function and airway protection: Vocal quality is clear. Voluntary cough is strong and sufficient to protect airway. Bolus Presentation(s) ?? Thin liquid, Regular consistency Oral Preparatory Phase Mastication: Normal. Oral Transit: Normal. Bolus Cohesion: Normal. Labial Seal / Loss: Negative. Oral Stasis: Negative. Pharyngeal Phase Initiation: Timely. Laryngeal Elevation: Normal to palpation. Vocal quality change: Vocal quality is clear following all swallows. No change in vocal quality. Cough: Without cough following swallows. Change in O2 sats: Not tested. Pt. complaint of food getting stuck: Negative. Esophageal Phase Appears to be WFL, No overt clinical s/s of esophageal phase dysphagia noted during this evaluation. A: Dx: Normal oral swallow. Functionally appearing pharyngeal swallow. Summary: Normal oral manipulation of bolus material. Without signs of aspiration or pharyngeal dysphagia at this time. Presented and demonstrated swallowing home exercise program. Pt return demonstrated to indicate understanding. Written instructions were provided. Pt indicated desire to follow-up with further speech intervention closer to home at a hospital in [place], [place]. No further speech appointments will be scheduled here at [facility] at this time per pt's request. Education: Discussed anticipated effects of XRT on swallow function. Pt and his expressed understanding. Presented and demonstrated swallowing home exercise program. Pt return demonstrated to indicate understanding. Written instructions were provided. P: RECOMMENDATIONS: ?? Continue regular diet with regular liquids. ?? Upright to feed. ?? Complete swallow exercise program 3 times daily. Frequency of care: To be determined by OPS ANALYST treating OPS ANALYST locally to pt's residents. Pt./family are in agreement with treatment plan. Short-Term Goals: To be determined by treating OPS ANALYST locally to pt's residence. Long-Term Goals: To be determined by treating OPS ANALYST locally to pt's residence. Thank you for this consult with this patient. Please feel free to page me with any questions or concerns. Rio Lugo MS, [facility]-OPS ANALYST Inpatient Rehabilitation Medicine Pager: # [phone] documented in this encounter Plan of Treatment Upcoming Encounters Date Type Department Care Team (Late st Contact Info) Description 05/24/2025 11:00 AM EDT Office Visit Radiation Oncology at [address] [phone] Jesse Mcmahan MD [facility] [place] [address] documented as of this encounter Visit Diagnoses Diagnosis Dysphagia, unspecified(787.20) Dysphagia, unspecified documented in this encounter Care Teams Farm Helper Relationship Specialty Start Date End Date Bj Alves MD [address] [place] [phone] PCP - General 06/25/10 04/02/23 documented as of this encounter
--- OUTSIDE RECORDS SUMMARY | 2024-08-01 15:31 | XMS_ITS | Encounter Summary ---
Author Organization [facility] [place] [address] Care Team Providers Care Bandage Maker Name Role Phone Bj Alves MD Primary Care Provider [phone] Encounter Details Date Type Department Care Team (Late Contact Info) Description 02/17/2012 Orders Only Hematology Oncology at [address] [phone] Marcia Hall, RN Head and neck cancer; Nausea Social History Tobacco Use Types Packs/Day Years [...] EDT Office Visit Radiation Oncology at [address] [phone] Jesse Mcmahan MD [facility] [place] [address] documented as of this encounter Visit Diagnoses Diagnosis Head and neck cancer Malignant neoplasm of head, face, and neck Nausea Nausea alone documented in this encounter Care Teams Bandage Maker Relationship Specialty Start Date End Date Bj Alves MD [address] [place] [phone] PCP - General 06/25/10 04/02/23 documented as of this encounter
--- OUTSIDE RECORDS SUMMARY | 2024-08-01 15:31 | XMS_ITS | Encounter Summary ---
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 Mr. Modi consented to participate in RTOG 1016, signed consent and was subsequently randomized to ARM 2: RT with Cetuximab. Mr yWatt received Day 1 Cetuximab Loading Dose @ 400 mg/m2 on 02/17/2012. Subjective: My face feels sort of warm and is a little flushed Is this good news? I have no other complaints In discussion with Mr. Wyatt, he denies fever, nausea, vomiting or any other signs/symptoms of drug reaction. Toxicity Assessment EVENT CTCAE GRADE ATTRIBUTION TO TREATMENT Onset >/= Grade 3 Resolution < Grade 3 Flushing 1 Education Provided: ?? Discussion and review of potential side effects of Cetuximab including drug rash with patient. ?? Mr. Modi was advised to monitor his temperature for the next 24 hours and to report to me and his treatment team at [place], [place] any fever. Plan: 1. Pt will continue on study RTOG 1016 per protocol. 2. Anticipated RT Start next week as planned Pt understands and agrees with plan and knows to call the [place], [place]. clinic with any further questions or concerns. Mr Modi also knows that he can contact me with any protocol questions or concerns. Salud Amaro PICTURE FRAME MAKER CCRP RTOG Research Nurse documented in this encounter Plan of Treatment Upcoming Encounters Date Type Department Care Team (Late st Contact Info) Description 05/24/2025 11:00 AM EDT Office Visit Radiation Oncology at [address] [phone] Jesse Mcmahan MD [facility] [place] [address] documented as of this encounter Visit Diagnoses Not on filedocumented in this encounter Care Teams Rubber Splicer Relationship Specialty Start Date End Date Bj Alves MD [address] [place] [phone] PCP - General 06/25/10 04/02/23 documented as of this encounter
--- OUTSIDE RECORDS SUMMARY | 2024-08-01 15:31 | XMS_ITS | Encounter Summary ---
Author Organization [facility] [place] [address] Care Team Providers Care Cloud Operations Engineer Name Role Phone Bj Alves MD Primary Care Provider [phone] Encounter Details Date Type Department Care Team (Late st Contact Info) Description 02/24/2012 11:00 AM EDT Ancillary Appointment Hematology Oncology at [address] [phone] [facility] [place] [address] Social History Tobacco Use Types Packs/Day Years [...] Progress Notes * Sabine Nash RD - 02/24/2012 1:25 PM EDT [facility] Initial Dietitian Assessment Seen By: Gisele Nash MS, RD, LD Referred by: H/N team Reason for visit: H/N Ca Patient and diagnosis: 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 Patient has been enrolled on RTOG 1016 and randomized to the radiation therapy plus Erbitux arm. Started Chemo 02/17/12.GT in 5 weeks ago. Assessment: HPI: 56 YO M has a past medical history of Acid reflux; Thyroid dysfunction; Arthritis; and Psoriasis. 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 Meds: reviewed Labs: reviewed Current Wt: 103.5 kg on 02/24/12 Previous Wt. 103.6 kg on 02/03/12 Ht: 175 cm UBW: 114.5 kg /250-252 lbs prior to dx in November 2011, after dx changed diet (cut out red meat, increased fruit and vegetables, decreased sugar intake) and experienced weight loss. the weight just kept falling off. % UBW: 90% IBW: 70 kg +/- 10% Adjust BW: 83.4 kg % ABW: 124% Kcal needs: 25-30 kcals at Adj BW: 2000 - 2500 Protein needs: @ 1.3 - 1.5 g/kg Adj: 108- 125 Fluid needs: 2500 - 3000 mls BMI: 33.8 ___ Edema ___ Ascites ___Muscle wasting Food Intake: TF: not at this time; flushing 60 mls, QOD Am: oatmeal, raisins, maple syrup, or Sooo Sweet (stevia) and coffee or toast Noon: broccoli, cauliflower, beans, will use spinach on occ, but prefers lettuce from home, rye croutons, onions, cabbage prepares from salad bar at local market Pm: brown rice, white meat (chx, fish, turkey, or veg burger) and a veg Snacks: almonds, Supplements/Frequency: none at this time ___ Ensure/Plus ___ Boost/Plus ___ CIB ___ Other: Teas, vitamins, or other nutritional supplements: Vit D3, Food allergies or avoidances: knfa, typically eats organic fruits and veg, drinks coconut milk and almond milk Appetite: 8-9/10 scale I could pig out, but not a that high (10). Nausea: denies Vomiting: denies Chewing: denies Dentition: good, went to dentist on 02/21/12 for regular cleaning. Everything is ok. Swallowing: denies Taste Changes: denies Bowels: regular, going everyday Food availability/purchasing, meal planning and preparation: He does this, doesn't cook very well and he prefers her to come into the kitchen. Depression: n/a, affect is very optimistic and upbeat Social Support: States it is wonderful. Economic Issues: none Physical Activity: Walks up 5 flights of stairs 4-6 times/day. Doesn't use elevator, walks frequently to take breaks. Level of Motivation/Readiness to Change: Action Nutrition Diagnosis: Hypermetabolism related to tongue cancer as evidenced by decrease of 10% weight loss in 3 mos. It is difficult to determine how much of his weight loss was due to positive changes in his diet after receiving his dx vs. Unintentional weight loss 2' his cancer. We discussed his increase kcal and protein needs and how to meet this: small, frequent meals q 2-3 hours. Encouraged him to continue with current activity level as much as possible to help LBM preservation. Also discussed how this helps with fatigue, which he is not currently experiencing yet. We also reviewed the likelihood of using his gtube for nutrition. He is optimistic in not wanting use it. Recommended flushing GT daily as opposed to QOD. TF rec's have not been faxed to [facility] as pt's first day is today, 02/24/12 and able to take all foods and meds p.o. TF Recommendations:9 cans Fibersource H/N via gravity bag to provide: 2250 kcals, 121.5 g pro, and 1827 mls free water/day. Pt instructed to flush tube with 60 mls before and after each feeding. Pt will need and add'l 313 to 813 mls of water/day (1.5 - 3.5 cups) taken p.o. Or via tube. The above recommendations meet 100% of pt's WELLNESS NURSE's for kcal, vitamins, and minerals. Recommend administering 3 cans/time as mealsover a period of 1-2 hours, TID. Nutrition Intervention: Increase caloric needs: Discussed Modify diet consistency: not at this time Increase frequency of meals and snacks: q 2-3 hours Need for supplements: encouraged, and would like for him to try Orgain, as he prefers to organic products and natural sugars. Will provide samples. Nutrition Goals: Weight maintenance and PBM preservation Educational Handouts provided: -- Protein needs and sources -- Dirty Dozen and Clean Fifteen F& V list Other Recommendations: None at this time. Monitoring and Evaluation: Will follow up with Mr. Wyatt in one week (s) to re-evaluate. More than 75 of this 60 minute visit was spent in direct patient nutrition counseling. I have provided him with my card and contact information should s/he have any questions in the mean time. Thank you for this consult. documented in this encounter Plan of Treatment Upcoming Encounters Date Type Department Care Team (Late st Contact Info) Description 05/24/2025 11:00 AM EDT Office Visit Radiation Oncology at [address] [phone] Jesse Mcmahan MD [facility] [place] [address] documented as of this encounter Visit Diagnoses Not on filedocumented in this encounter Care Teams Cloud Operations Engineer Relationship Specialty Start Date End Date Bj Alves MD [address] [place] [phone] PCP - General 06/25/10 04/02/23 documented as of this encounter
--- OUTSIDE RECORDS SUMMARY | 2024-08-01 15:31 | XMS_ITS | Encounter Summary ---
Author Organization [facility] [place] [address] Care Team Providers Care Artificial Flowers Dyer Name Role Phone Bj Alves MD Primary Care Provider [phone] Reason for Visit * Reason Comments Head And Neck Cancer Encounter Details Date Type Department Care Team (Late st Contact Info) Description 01/29/2012 2:00 PM EDT Follow-Up Hematology Oncology at [address] [phone] Rakesh Underwood MD Head and neck cancer (Primary Dx); Nausea Discharge Disposition: Home Social History Tobacco Use [...] Sign Reading Time Taken Comments Blood Pressure 119/74 01/29/2012 2:13 PM EDT Pulse 56 01/29/2012 2:13 PM EDT Temperature 36.6 ??C (97.9 ??F) 01/29/2012 2:13 PM ED T Respiratory Rate 16 01/29/2012 2:13 PM EDT Oxygen Saturation 98% 01/29/2012 2:13 PM EDT Inhaled Oxygen Concentration - - Weight 104.5 kg (230 lb 6.1 oz) 01/29/2012 2:13 PM EDT Height 175.3 cm (5' 9.02) 01/29/2012 2:13 PM ED T Body Mass Index 34.01 01/29/2012 2:13 PM EDT documented in this encounter Progress Notes * Rakesh Underwood MD - 01/29/2012 3:58 PM EDT Images from the original note were not included. 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 HPV positive (genotype 16) Subjective: Padmini comes in today for medical oncology consultation appear in [facility]. One week from Thursday he will be beginning definitive radiation therapy to the tongue and neck for the treatment of his locally metastatic squamous cell carcinoma. He has had a port placed along with a feeding tube and to see medical oncology at [facility]. Recommendations were made for treatment with concurrent radiation therapy and chemotherapy with chemotherapy consisting of weekly cis- modoc. The patient is here today with his physician's assistant facility manager to discuss starting treatment. In talking to him he is doing well without problems or symptoms. His port is healed and well and his feeding tube is doing well. He is doing daily gastrostomy tube flushes without problems. Notes she's lost a little bit of weight having gone through all the procedure slightly but is doing well and has continued to work part-time.Other than the swelling in his left neck he has been symptom-free from this cancer. Past medical history is reviewed: Past Medical History Diagnosis Date ??? Acid reflux ??? Thyroid dysfunction ??? Arthritis ??? Psoriasis Past Surgical History Procedure Date ??? Carpal tunnel release rt ??? Laryngoscopy, dirct, op scope, biopsy 12/12/2011 LARYNGOSCOPY, MICROSCOPE, WITH BIOPSY performed by BECKY GANN at [facility] MAIN OR ??? Laryngoscopy, dirct, op scop, exc tumr 12/12/2011 LARYNGOSCOPY, DIRECT, EXCISION OF TUMOR, CORD STRIPPING, MICRO performed by BECKY GANN at [facility] MA[facility] OR ??? Scan doc: pet scan 01/16/2012 PET SCAN performed by LES REYNOLDS at [facility] Patient Active Problem List Diagnoses Code ??? [...] ??? 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 DIFFICULT AIRWAY 325326 Family History Problem Relation Age of Onset ??? Heart Failure Mother ??? Diabetes ??? Heart Failure Father ??? Diabetes Father ??? Diabetes Mother ??? Thyroid Disease Sister hypothyroidism ??? Thyroid Disease Mother hypothyroidism History Smoking status ??? Former Smoker -- 1.0 packs/day for 38 years ??? Quit date: 08/06/2011 Smokeless tobacco ??? Not on file Social history is remarkable for the patient having a 10-year-old at home. 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 His is a local nurse practitioner and is here with him today for today's visit. Review of Systems Constitutional: Negative for fever, [...] Supple, symmetrical, trachea midline, there is a 3 cm node palpable in the left anterior cervical triangle., thyroid: not enlarged, symmetric, no tenderness/mass/nodules, no [...] Supraclavicular, and axillary nodes normal Neurologic: Normal Lab Results Component Value Date CREATININE 0.91 01/22/2012 Lab Results Component Value Date WBC 11.4* 01/09/2012 RBC 6.45* 01/09/2012 HGB 13.6* 01/09/2012 HCT 41.3 01/09/2012 MCV 64.0* 01/09/2012 MCH 21.1* 01/09/2012 MCHC 32.9 01/09/2012 PLATELET 200 01/09/2012 RDWCV 14.8* 01/09/2012 SURGICAL PATHOLOGY ---Pathologic Diagnosis--- A - Cyst, left vallecula Benign squamous lined cyst B - Left tongue base Invasive squamous cell carcinoma, intermediate grade C - Left tonsil negative for malignancy Specimen: B - Left tongue base Analysis: HPV Genotyping by Leila Linear Array HPV Genotyping Test Results: Positive for HPV genotype 16 PET/CT SCAN DATE OF EXAM: 01/16/12. PROCEDURE: Following IV injection of 13-tqwfqe-7-deoxyglucose (FDG) and a standard uptake period, a non-contrast CT scan followed by a PET scan were acquired along the length of the body from the top of the head to mid thighs. The non-contrast CT was used for anatomic localization and photon attenuation correction of the PET scan. Blood Glucose Level (mg/dL): 110. FDG Dose: 16.5 mCi (0.15 mCi/kg to maximum of 18mCi). CORRELATIVE STUDIES: PET/CT, 11/27/11. CLINICAL HISTORY: Left base of tongue cancer with level II chance metastasis. This is a staging exam. FINDINGS: Head/Neck: A 31 x 35 mm hypermetabolic necrotic-appearing chance mass is seen in the left level II region (axial image #73). An 11 mm hypermetabolic lymph node is present in the left level V region at the level of the hyoid, abutting the posterior margin of the left sternocleidomastoid muscle (axial image #79). A small hypermetabolic focus is seen in the left base of tongue/lingual tonsil region (axial image #72). There is subtle asymmetrically increased activity in the left pharyngeal tonsil region, which is a more equivocal finding. There is mild diffusely increased activity in both lobes of the thyroid, likely representing a thyroiditis. Normal activity in all other regions. Chest: Normal activity in all regions. A central line is seen with the tip terminating at the junction of the SVC and right atrium. Abdomen/Pelvis: Normal activity in all regions. Again seen is a 37 mm infrarenal abdominal aortic aneurysm. There has been interval placement of a gastrostomy tube. Skeleton: No significant osseous abnormalities are identified. IMPRESSION: 1. The primary site of malignancy is seen in the left base of tongue/lingual tonsil region. 2. A small focus of activity in the left pharyngeal tonsil region, which has a more equivocal appearance and could represent asymmetric lymphoid hyperplasia; however, an additional focus of malignancy is not excluded. 3. Large necrotic chance metastasis in the left level II region. 4. A small chance metastasis in the left level V region at the level of the hyoid. 5. No evidence for distant sites of metastasis. 6. Incidental finding of diffuse activity in both lobes of the thyroid, likely representing thyroiditis. 7. Incidental finding of an infrarenal abdominal aortic aneurysm, unchanged compared to the prior study of 11/27/11. Assessment/Plan: Clem has a locally advanced squamous cell carcinoma of the base of the tongue with left cervical metastasis. He is scheduled for definitive chemoradiation therapy to begin a week from this coming Thursday. Recommendations are made for weekly cis-modoc and we will make arrangements for him to start treatment with cis-modoc 30 mg meter squared weekly while on radiation therapy. Risks and sideeffects were gone over in detail and chemotherapy teaching was done. The patient and his had agood understanding of things but I believe all her questions were answered today. He did mention that he had talked to Dr. Mcmahan about a possible clinical trial if he was HPV positive. We did make a call to Dr. Mcmahan regarding this and the patient will be contacting him tomorrow in regards to whether that would be a viable option for him. We'll set him up for treatment with chemotherapy a week from this Thursday. We'll have him check a port trauma CBC and CMP and magnesium level prior to chemotherapy on February 08. documented in this encounter Plan of Treatment Upcoming Encounters Date Type Department Care Team (Late st Contact Info) Description 05/24/2025 11:00 AM EDT Office Visit Radiation Oncology at [address] [phone] Jesse Mcmahan MD [facility] [place] [address] documented as of this encounter Visit Diagnoses Diagnosis Head and neck cancer- Primary Malignant neoplasm of head, face, and neck Nausea Nausea alone documented in this encounter Care Teams Artificial Flowers Dyer Relationship Specialty Start Date End Date Bj Alves MD [address] [place] [phone] PCP - General 06/25/10 04/02/23 documented as of this encounter
--- OUTSIDE RECORDS SUMMARY | 2024-08-01 15:31 | XMS_ITS | Encounter Summary ---
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 Chemo call to pt to assess status: No answer; message left on ans machine to please call me. 1035: Contact made with patient: Subjective: My face feels ok. I feel great. I'm having anger and frustration control issues. In discussion with Mr. Wyatt, he denies fever, nausea, vomiting or any other signs/symptoms of drug reaction. Toxicity Assessment EVENT CTCAE GRADE ATTRIBUTION TO TREATMENT Onset >/= Grade 3 Resolution < Grade 3 Agitation 2 Education Provided: On-going discussion and review of potential side effects of Cetuximab including drug rash with patient. Discussion with Mr. Modi re: his reported bouts of agitation that reach 8/10 level; stress reduction techniques; drug management, etc. Plan: 1. Pt will continue with protocol treatment per RTOG 1016 ARM 2. 2. Pt will continue open dialogue with PCP and other providers re: agitation control 3. Pt understands and agrees with plan and knows to call the [place] clinic with anyfurther questions or concerns. 4. Mr Modi also knows that he can contact me with any protocol questions or concerns. Salud Amaro SALES SYSTEMS ENGINEER CCRP RTOG Research Nurse documented in this encounter Plan of Treatment Upcoming Encounters Date Type Department Care Team (Late st Contact Info) Description 05/24/2025 11:00 AM EDT Office Visit Radiation Oncology at [address] [phone] Jesse Mcmahan MD [facility] [place] [address] documented as of this encounter Visit Diagnoses Not on filedocumented in this encounter Care Teams Slot Tag Inserter Relationship Specialty Start Date End Date Bj Alves MD [address] [place] [phone] PCP - General 06/25/10 04/02/23 documented as of this encounter
--- OUTSIDE RECORDS SUMMARY | 2024-08-01 15:31 | XMS_ITS | Encounter Summary ---
[place] [address] Care Team Providers Care Plasma Cutting Machine Operator Name Role Phone Bj Alves MD Primary Care Provider [phone] Reason for Referral * Speech Therapy ([facility]) - Complete - Patient Seen (External Appt Consult Notes Rcv'd) Specialty Diagnoses / Procedures Referred By Sheila colvin Referred To Contact Speech Pathology / Speech Therapy Diagnoses Head and neck cancer Jesse Mcmahan MD [facility] [place] [address] [facility] [place] [address] Referral ID Status Reason Start Date Expiration Date Visits Requested Visits Authorized [id number] Complete - Patient Seen (External Appt Consult Notes Rcv'd) Evaluate and Treat 02/02/2012 07/31/2012 1 1 * Audiology Exam (Urgent) - Closed Specialty Diagnoses / Procedures Referred By Sheila colvin Referred To Contact Audiology Diagnoses Head and neck cancer Jesse Mcmahan MD [facility] [place] [address] [facility] [address] [place] [phone] Referral ID Status Reason Start Date Expiration Date V isits Requested Visits Authorized [id number] Closed Specialty Service Requested 02/02/2012 07/31/2012 1 1 Encounter Details Date Type Department Care Team (Late Contact Info) Description 02/02/2012 Orders [place] [phone] Jesse Mcmahan MD [facility] [place] [address] Head and neck cancer (Primary Dx) Social [...] of this encounter Progress Notes * Salud Madrid - 02/02/2012 2:23 PM EDTAddended by: SALUD MADRID on: 02/02/2012 Modules accepted: Orders documented in this encounter Plan of Treatment Upcoming Encounters Date Type Department Care Team (Late Contact Info) Description 05/24/2025 11:00 AM EDT Office Visit Radiation Oncology at [address] [phone] Jesse Mcmahan MD [facility] [place] [address] Scheduled Referrals Name Type Priority Associated Diagnoses Orde r Schedule REFERRAL TO AUDIOLOGY Outpatient Referral Routine Head and neck cancer Ordered: 02/02/2012 REFERRAL TO SPEECH THERAPY Outpatient Referral Routine Head and neck cancer Ordered: 02/02/2012 documented as of this encounter Results * Magnesium (02/03/2012 10:23 AM EDT) Magnesium 0.88 0.69 - 1.07 mmol/L [facility] Blood specimen (specimen) 02/03/2012 10:23 AM EDT 02/03/2012 10:30 AM EDT Narrative Resulting Agency Comment Spec In Lab Jesse Mcmahan MD CHEMISTRY ORDERABLES [facility] * Comprehensive metabolic panel (non-fasting) (02/03/2012 10:23 AM EDT) Glucose 98 60 - 199 mg/dL [facility] Comment:Diabetes: >=200 mg/d L plus symptoms Blood Urea Nitrogen 15 10 - 20 mg/dL [facility] Creatinine 0.95 0.80 - 1.50 mg/dL [facility] Comment: Please note that the pediatric reference intervals supplied above were not validated at [facility]. Results from pediatric patients should be interpreted in conjunction to the patient's age, height and muscle mass. Sodium 138 135 - 145 mmol/L [facility] Potassium 4.2 3.5 - 5.0 mmol/L [facility] Comment: Please note: ??Patients with WBC >100,000 may have falsely elevated Potassium levels. ??For accurate Potassium quantification in these patients send serum separator tube (gold top) for subsequent determinations. ??Contact the Clinical Chemistry Laboratory if there are any questions. Chloride 102 98 - 107 mmol/L [facility] Carbon Dioxide 27 22 - 31 mmol/L [facility]EN[facility] Anion Gap 9 5 - 15 mmol/L [facility] M[facility]EN[facility] Calcium 10.1 8.5 - 10.5 mg/dL [facility] Protein, Total 7.5 6.4 - 8.3 gm/dL [facility] Albumin 4.6 3.2 - 5.2 gm/dL [facility] MILLENNI[facility] Aspartate Aminotransferase 20 0 - 39 unit/L [facility] M[facility]ENNI[facility] Alanine Aminotransferase 19 0 - 55 unit/L [facility] M[facility]ENNI[facility] Alkaline Phosphatase 76 40 - 120 unit/L [facility] MILLENNIUM Bilirubin, [...] J Am Soc Nephrol;6:1963-72. Blood specimen (specimen) 02/03/2012 10:23 AM EDT 02/03/2012 10:30 AM EDT Narrative Resulting Agency Comment Spec In Lab Jesse Mcmahan MD CHEMISTRY ORDERABLES Performing Organization Address City/State/ZIP [place] Phone Number [facility] * (ABNORMAL) CBC (with Diff) (02/03/2012 10:23 AM EDT) White Blood Cell 7.9 4.0 - 10.0 x10(3)/mc L [facility] Red Blood Cell 5.93 4.63 - 6.08 x10(6)/mc L [facility]ENNI[facility] Hemoglobin 12.7(L) 13.7 - 17.5 gm/dL [facility]ENNI[facility] Hematocrit 37.5(L) 40.0 - 51.0 % [facility] MILLENNIUM Mean Cell Volume 63.2(L) 79.0 - 92.0 fL [facility] MILLENNIUM Mean Cell Hemoglobin 21.4(L) 25.6 - 32.2 pg [facility] M[facility]ENNIUM Mean Cell Hemoglobin Concentration 33.9 32.0 - 36.5 gm/dL [facility]ERNER MILLENNIUM Platelet 165 145 - 370 x10(3)/mc L CERNER MILLENNIUM RDW Standard Deviation 33.3(L) 35.0 - 46.0 fL CERNER MILLENNIUM RDW coefficient of variation 14.7(H) 10.9 - 14.4 % CERNER MILLENNIUM Mean Platelet Volume 9.6 9.0 - 12.0 fL [facility] MILLENNIUM Blood specimen (specimen) 02/03/2012 10:23 AM EDT 02/03/2012 10:30 AM EDT Narrative Resulting Agency Comment Spec In Lab Jesse Mcmahan MD HEMATOLOGY ORDERABLE S [facility] documented in this encounter Visit Diagnoses Diagnosis Head and neck cancer- Primary Malignant neoplasm of head, face, and neck documented in this encounter Care Teams Plasma Cutting Machine Operator Relationship Specialty Start Date End Date Bj Alves MD [address] [place] [phone] PCP - General 06/25/10 04/02/23 documented as of this encounter
--- OUTSIDE RECORDS SUMMARY | 2024-08-01 15:31 | XMS_ITS | Encounter Summary ---
Author Organization [facility] [place] [address] Care Team Providers Care Devulcanizer Operator Name Role Phone Ash Hernandez MD Primary Care Provider [phone] Encounter Details Date Type Department Care Team (Late st Contact Info) Description 01/09/2012 3:26 PM EDT - 01/09/2012 5:54 [place] [phone] Maxi Saavedra MD [facility] [place] [address] PERCUTANEOUS GASTROSTOMY Social History Tobacco Use Types Packs/Day Years [...] Sign Reading Time Taken Comments Blood Pressure 136/65 01/09/2012 12:00 PM EDT Pulse 67 01/09/2012 12:00 PM EDT Temperature 36.7 ??C (98.1 ??F) 01/09/2012 11:27 AM E DT Respiratory Rate 16 01/09/2012 12:00 PM EDT Oxygen Saturation 99% 01/09/2012 12:00 PM EDT Inhaled Oxygen Concentration - - Weight 109.8 kg (242 lb) 01/09/2012 7:48 AM EDT Height 175.3 cm (5' 9) 01/09/2012 7:27 AM EDT Body Mass Index 35.74 01/09/2012 7:27 AM EDT documented in this encounter Discharge Instructions * Discharge Instructions* Sydnee Cuellar PA - 01/09/2012 10:30 AM EDT DC INSTRUCTIONS: 1) Gastrostomy sutures to be removed in 10 days. This can be done with your PCP. [place] suture is to be cut flush with the skin (under the knot). 2) Please flush tube with 30-50cc water before and after tube feedings and medications. 3) Keep dressing in place for 3 days, then may remove and cover as needed for drainage. 4) Okay to shower with dressing off in 3-4 days. Wash around tube and sutures with soap and water and pat dry. Do not use Hydrogen Peroxide. 5) Call the Interventional Radiology Department ([phone]) for pain, redness or drainage aroundthe feeding tube or sutures, or for any trouble with tube feedings or flushing. documented in this encounter Medications at Time of Discharge Medication Sig Dispensed Refills Start Date End Date FLUoxetine (PROZAC) 20 mg capsule Take by mouth daily. 013 clonAZEpam (KLONOPIN) 1 mg tablet Take 1 mg by mouth 2 times daily as needed. 02/27/2012 vitamin E 400 unit capsule Take 400 Units by mouth daily. 04/20/2012 B Complex-Vitamin C-Folic Acid (NEPHROCAP) 1 mg capsule Take 1 capsule by mouth daily. 08/22/2016 cholecalciferol, Vitamin D3, 400 unit tablet Take 400 Units by mouth daily. 09/01/2013 ascorbic acid (VITAMIN C) 500 mg tablet Take 500 mg by mouth daily. 01/09/2017 OXYcodone (ROXICODONE) 5 mg/5 mL solution Take 5 mLs by mouth every 4 hours as needed for Pain. 250 mL 0 12/12/2011 03/16/2012 metoprolol succinate (TOPROL-XL) 100 mg XL tablet Take 50 mg by mouth daily. 10/18/2015 rosuvastatin (CRESTOR) 10 mg tablet Take 5 mg by mouth daily. 10/18/2015 doxazosin (CARDURA) 2 mg tablet Take 2 mg by mouth nightly. 04/20/2012 levothyroxine (SYNTHROID) 137 mcg tablet Take 175 mcg by mouth daily. 12/16/2012 augmented betamethasone dipropionate (DIPROLENE-AF) 0.05 % ointment Apply topically 2 times daily. 06/04/2012 documented as of this encounter Progress Notes * Caroline Brown RN - 01/09/2012 12:18 PM EDT 1200- g tube and mediport sites dry intact * Sydnee Cuellar PA - 01/09/2012 8:15 AM EDT PCP: ASH HERNANDEZ MD Referring Physician: Larry Procedure Indication: Base of tongue cancer Planned Procedure: Gastrostomy tube and port placement Presenting Diagnosis/ Complaint: Sebastian Wyatt is a 56 y.o. 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 Will require enteral feeding given current dysphagia and expected diminished ability to take po post-op and chemoradiation. Presentation: Hx. 1 PPD x 38 yrs. Quit 08/2011. Developed odynophagia early 11/2011, abx did not improve, . Stagin12/09/11 CT H&N with contrast ([facility]): Mixed attenuation mass with lare low density areas suggesting necrotic change present deep to anterior aspect L SCM. Mass smoothly marginated, max 3.3 x 5.2 cm. 11/27/11 [place] Despite premedication, severe claustrophobia allowed this can [...] C - Left tonsil: negative for malignancy Labs pending The patient's history and physical exam have been reviewed and completed. There has been no interval change from that of the pre-operative history and physical exam done within the last 30 days. Risks and benefits discussed and patient consented to the procedure. Physical Exam Heart: RRR Lungs: clear Procedure to be performed with Anesthesia assistance. documented in this encounter Procedure Notes * Sydnee Cuellar PA - 01/09/2012 10:30 AM EDTProcedure(s): PRO INSERT TUNNELED CV CATH W SUBQ PORT, AGE 5 YRS OR OLDER VIR PROCEDURE NOTE: Procedure: Placement of right IJ single lumen chest port (Dignity CT POWER PORT) ACC#: [id number] Indication: Tongue base cancer, needs access for chemotherapy TECHNIQUE: After discussing risks (including infection, hemorrhage, occlusion), and benefits, patient consented to the procedure and conscious sedation. A moment of truth was performed and the patient and procedure correctly identified. Due to the painful nature of the procedure and airway concernsthe procedure was performed with assistance from Anesthesia. After maximal sterile barrier technique preparation of the right neck and upper chest, ultrasound was used to localize the right internal jugular vein. 1% lidocaine SQ was administered for anesthesia, and a 21 ga needle was advanced under ultrasound guidance into the IJ and a 0.018 inch wire was advanced into SVC. A 4 Fr introducer sheath was placed and the wire exchanged for a 0.035 inch wire. Lidocaine was then infiltrated in a caudal-lateral direction, and infiltrated over a 2.5 cm infraclavicular area for pocket creation. A 2 cm incision was made and, with blunt dissection, a pocket created. Port was attached to the catheter, placed into the pocket. A tunneler was then used to bring the catheter through the tunnel to the venotomy site. Venotomy was dilated to accommodate the peel-away sheath, and during breath-hold,the catheter advanced. Sheath was removed. Port flushed and aspirated well. The pocket was closed using a two layer technique with absorbable suture material (2-0 vicryl deep interrupted and 4-0 monocryl running subcuticular). Skin closed with indermil. Patient tolerated the procedure well. There were no immediate complications. Port loaded with heparin per protocol. MEDICATIONS: Ancef 1 gram IV See Anesthesia sheet for additional medication details Contrast: none Fluoro time: 0.4 minutes. EBL: < 5 cc IMPRESSION: US and fluoro guided placement single lumen right IJ Dignity CT POWER port, catheter tip in cavoatrial junction. Port ready for use. Procedure performed by Sydnee Cuellar PA-C Attending: Dr. Saavedra documented in this encounter Miscellaneous Notes * Miscellaneous - Provider, Scanning - 01/10/2012 1:14 AM EDT * Miscellaneous - Provider, Scanning - 01/10/2012 1:11 AM EDT * Miscellaneous - Provider, Scanning - 01/09/2012 8:50 AM EDT documented in this encounter Plan of Treatment Upcoming Encounters Date Type Department Care Team (Late st Contact Info) Description 05/24/2025 11:00 AM EDT Office Visit Radiation Oncology at [address] [phone] Jesse Mcmahan MD [facility] [place] [address] documented as of this encounter Procedures Procedure Name Priority Date/Time Associated Diagnosis Comments VENOUS ACCESS PLACEMENT 01/09/2012 11:26 PM EDT head and neck cancer PERCUTANEOUS GASTROSTOMY 01/09/2012 11:26 PM EDT head and neck cancer IR MEDIPORT PLACEMENT Routine 01/09/2012 10:13 AM EDT Tonsillar cancer SCAN, PERIPHERAL BLOOD Routine 01/09/2012 8:20 AM EDT NUCLEATED RED BLOOD CELLS Routine 01/09/2012 8:20 AM EDT DIFFERENTIAL, AUTOMATED Routine 01/09/2012 8:20 AM EDT PROTHROMBIN TIME Routine 01/09/2012 8:20 AM EDT CBC (WITH DIFF) Routine 01/09/2012 8:20 AM EDT documented in this encounter Results * IR mediport placement or removal (01/09/2012 10:13 AM EDT) Anatomical Region Laterality Modality X-Ray Angiograph y 01/09/2012 10:1 3 AM EDT Impressions 01/11/2012 2:53 PM EDT IMPRESSION: US and fluoro guided placement single lumen right IJ Dignity CT POWER port, catheter tip in cavoatrial junction. Port ready for use. ?? Procedure performed by Sydnee Cuellar PA-C ?? Attending: Dr. Quentin Burger 01/11/2012 2:53 PM EDT VIR PROCEDURE NOTE: ?? Procedure: Placement of right IJ single lumen chest port (Dignity CT POWER PORT) ?? ACC#: [id number] ?? Indication: Tongue base cancer, needs access for chemotherapy ?? TECHNIQUE: After discussing risks (including infection, hemorrhage, occlusion), and benefits, patient consented to the procedure and conscious sedation. A moment of truth was performed and the patient and procedure correctly identified. Due to the painful nature of the procedure and airway concerns the procedure was performed with assistance from Anesthesia. ?? After maximal sterile barrier technique preparation of the right neck and upper chest, ultrasound was used to localize the right internal jugular vein. 1% lidocaine SQ was administered for anesthesia, and a 21 ga needle was advanced under ultrasound guidance into the IJ and a 0.018 inch wire was advanced into SVC. A 4 Fr introducer sheath was placed and the wire exchanged for a 0.035 inch wire. Lidocaine was then infiltrated in a caudal-lateral direction, and infiltrated over a 2.5 cm infraclavicular area for pocket creation. ?? A 2 cm incision was made and, with blunt dissection, a pocket created. Port was attached to the catheter, placed into the pocket. A tunneler was then used to bring the catheter through the tunnel to the venotomy site. Venotomy was dilated to accommodate the peel-away sheath, and during breath-hold, the catheter advanced. Sheath was removed. Port flushed and aspirated well. The pocket was closed using a two layer technique with absorbable suture material (2-0 vicryl deep interrupted and 4-0 monocryl running subcuticular). Skin closed with indermil. Patient tolerated the procedure well. There were no immediate complications. Port loaded with heparin per protocol. ?? MEDICATIONS: ?? Ancef 1 gram IV ?? See Anesthesia sheet for additional medication details ?? Contrast: none ?? Fluoro time: 0.4 minutes. ?? EBL: < 5 cc ?? Procedure Note Maxi Saavedra MD - 01/11/2012 VIR PROCEDURE NOTE: Procedure: Placement of right IJ single lumen chest port (Dignity CT POWER PORT) ACC#: [id number] Indication: Tongue base cancer, needs access for chemotherapy TECHNIQUE: After discussing risks (including infection, hemorrhage,occlusion), and benefits, patient consented to the procedure and conscious sedation. A moment of truth was performed and the patient and procedure correctly identified. Due to the painful nature of the procedure and airway concernsthe procedure was performed with assistance from Anesthesia. After maximal sterile barrier technique preparation of the right neck andupper chest, ultrasound was used to localize the right internal jugular vein. 1% lidocaine SQ was administered for anesthesia, and a 21 ga needle wasadvanced under ultrasound guidance into the IJ and a 0.018 inch wire was advancedinto SVC. A 4 Fr introducer sheath was placed and the wire exchanged for a0.035 inch wire. Lidocaine was then infiltrated in a caudal-lateral direction,and infiltrated over a 2.5 cm infraclavicular area for pocket creation. A 2 cm incision was made and, with blunt dissection, a pocket created.Port was attached to the catheter, placed into the pocket. A tunneler was then usedto bring the catheter through the tunnel to the venotomy site. Venotomy was dilated to accommodate the peel-away sheath, and during breath-hold, the catheter advanced. Sheath was removed. Port flushed and aspirated well.The pocket was closed using a two layer technique with absorbable suturematerial (2-0 vicryl deep interrupted and 4-0 monocryl running subcuticular). Skin closed with indermil. Patient tolerated the procedure well. There were no immediate complications. Port loaded with heparin per protocol. MEDICATIONS: Ancef 1 gram IV See Anesthesia sheet for additional medication details Contrast: none Fluoro time: 0.4 minutes. EBL: < 5 cc IMPRESSION IMPRESSION: US and fluoro guided placement single lumen right IJ DignityCT POWER port, catheter tip in cavoatrial junction. Port ready for use. Procedure performed by Sydnee Cuellar PA-C Attending: Dr. Saavedra Jesse Mcmahan MD IMG IR ORDERABLES * (ABNORMAL) DIFFERENTIAL, AUTOMATED (01/09/2012 8:20 AM EDT) Neutrophil % 80.7(H) 34.0 - 71.0 % CERNER MILLENNIUM Neutrophil Absolute 9.22(H) 1.50 - 6.30 x10(3)/mc L CERNER MILLENNIUM Lymph % 14.2(L) 19.0 - 53.0 % CERNER MILLENNIUM Lymphocytes Abs 1.6 1.0 - 3.6 x10(3)/mc L CERNER MILLENNIUM Monocyte % 3.8(L) 4.0 - 13.0 % CERNER MILLENNIUM Monocyte Abs 0.4 0.2 - 1.0 x10(3)/mc L CERNER MILLENNIUM Eos % 0.5 0.0 - 7.0 % CERNER MILLENNIUM Eosinophils Abs 0.1 0.0 - 0.5 x10(3)/mc L CERNER MILLENNIUM Basophil % 0.5 0.0 - 2.0 % CERNER MILLENNIUM Baso Absolute 0.1 0.0 - 0.2 x10(3)/mc L CERNER MILLENNIUM Immature Gran % 0.30 0.00 - 0.66 % CERNER MILLENNIUM Comment: Immature granulocytes(IG's)percentage and absolute count will include metamyelocytes, myelocytes, and promyelocytes. Blood smears from CBCs yielding IG's will be scanned manually for concordance. If this scan disagrees with the automated IG or if promyelocytes are noted, a manual differential will be performed. Immature Gran Absolute 0.03 0.00 - 0.05 x10(3)/mc L CERNER MILLENNIUM Blood specimen (specimen) 01/09/2012 8:20 AM EDT 01/09/2012 8:33 AM EDT Maxi Saavedra MD HEMATOLOGY ORDERABLE S Performing Organization Address [facility] Co de Phone Number CERNER MILLENNIUM * NUCLEATED RED BLOOD CELLS (01/09/2012 8:20 AM EDT) NRBC% auto 0.0 0.0 - 0.2 % CERNER MILLENNIUM NRBC Absolute 0.000 0.000 - 0.012 x10(3)/mcL CERNER MILLENNIUM Blood specimen (specimen) 01/09/2012 8:20 AM EDT 01/09/2012 8:33 AM EDT Narrative Resulting Agency Comment Spec In Lab Maxi Saavedra MD HEMATOLOGY ORDERABLE S Performing Organization Address [facility] de Phone Number CERNER MILLENNIUM * SCAN, PERIPHERAL BLOOD (01/09/2012 8:20 AM EDT) Plat estimate Normal CERNER MILLENNIUM RBC Morphology Abnormal CERNE R MILLENNIUM Microcyte 1-5 /HPF CERNER MILLENNIUM Ovalocytes 1-5 /HPF CERNER MILLENNIUM Blood specimen (specimen) 01/09/2012 8:20 AM EDT 01/09/2012 8:33 AM EDT Narrative Resulting Agency Comment Spec In Lab Maxi Saavedra MD HEMATOLOGY ORDERABLE S Performing Organization Address [facility] Co de Phone Number CERNER MILLENNIUM * Prothrombin Time (01/09/2012 8:20 AM EDT) Prothrombin Time 13.7 11.9 - 14.7 sec CERNER MILLENNIUM Comment: [facility] Transfusion Committee Guidelines: INR less than 2.0, PTT less than OR equal to 43.5 seconds, or Fibrinogen greater than or equal to 100 mg/dl indicate adequate procoagulant activity for hemostasis in patients without underlying bleeding disorders. International Normalization Ratio 1.0 0.9 - 1.1 CERNER MILLENNIUM Blood specimen (specimen) 01/09/2012 8:20 AM EDT 01/09/2012 8:33 AM EDT Narrative Resulting Agency Comment Spec In Lab Maxi Saavedra MD HEMATOLOGY ORDERABLE S CERNER MILLENNIUM * (ABNORMAL) CBC (with Diff) (01/09/2012 8:20 AM EDT) White Blood Cell 11.4(H) 4.0 - 10.0 x10(3)/mc L CERNER MILLENNIUM Red Blood Cell 6.45(H) 4.63 - 6.08 x10(6)/mc L CERNER MILLENNIUM Hemoglobin 13.6(L) 13.7 - 17.5 gm/dL CERNER MILLENNIUM Hematocrit 41.3 40.0 - 51.0 % CERNER MILLENNIUM Mean Cell Volume 64.0(L) 79.0 - 92.0 fL CERNER MILLENNIUM Mean Cell Hemoglobin 21.1(L) 25.6 - 32.2 pg CERNER MILLENNIUM Mean Cell Hemoglobin Concentration 32.9 32.0 - 36.5 gm/dL CERNER MILLENNIUM Platelet 200 145 - 370 x10(3)/mc L CERNER MILLENNIUM RDW Standard Deviation 33.6(L) 35.0 - 46.0 fL CERNER MILLENNIUM RDW coefficient of variation 14.8(H) 10.9 - 14.4 % CERNER MILLENNIUM Mean Platelet Volume 10.0 9.0 - 12.0 fL CERNER MILLENNIUM Blood specimen (specimen) 01/09/2012 8:20 AM EDT 01/09/2012 8:33 AM EDT Narrative Resulting Agency Comment Spec In Lab Maxi Saavedra MD HEMATOLOGY ORDERABLE S CERCHAITANYA VALDEZENNIUM documented in this encounter Visit Diagnoses Not on filedocumented in this encounter Administered Medications Inactive Administered Medications - up to 3 most recent administrations Medication Order MAR Action Action Date Dose Rate Site fentaNYL 50mcg/mL injection 25 mcg, Intravenous, EVERY 10 MIN PRN, Starting on Thu01/09/12 at 1141, Until Thu01/09/12 at 2130, Pain, for breakthrough pain, Hold for respiratory rate less than 10 per minute. Maximum dose: 250 mcg over one hour., PACU Recovery, Routine Given 01/09/2012 12:16 PM EDT 25 mcg Given 01/09/2012 11:45 AM EDT 25 mcg documented in this encounter Active and Recently Administered Medications Times are shown in EDT. PRN Medication Order 01/07/2012 01/08/2012 01/09/2012 fentaNYL 50mcg/mL injection (CANCELED) 25 mcg, Intravenous, EVERY 10 MIN PRN, Starting on Thu01/09/12 at 1141, Until Thu01/09/12 at 2130, Pain, for breakthrough pain, Hold for respiratory rate less than 10 per minute. Maximum dose: 250 mcg over one hour., PACU Recovery, Routine 1145 (Given - Provid er: Caroline Brown RN)1216 (Given - Provider: Caroline Brown RN) documented in this encounter Care Teams Devulcanizer Operator Relationship Specialty Start Date End Date Ash Hernandez MD [address] [place] [phone] PCP - General 06/25/10 04/02/23 documented as of this encounter
--- OUTSIDE RECORDS SUMMARY | 2024-08-01 15:31 | XMS_ITS | Encounter Summary ---
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 Mr. Modi consented to participate in RTOG 1016, signed consent and was subsequently randomized to ARM 2: RT with Cetuximab. Mr Wyatt received Day 1 Cetuximab Loading Dose @ 400 mg/m2 on 02/17/2012. Subjective: My face feels ok. I did not get any fever. I have no other complaints In discussion with Mr. Wyatt, he denies fever, nausea, vomiting or any other signs/symptoms of drug reaction. Toxicity Assessment EVENT CTCAE GRADE ATTRIBUTION TO TREATMENT Onset >/= Grade 3 Resolution < Grade 3 None Education Provided: On-going discussion and review of potential side effects of Cetuximab including drug rash with patient. Plan: 1. Pt will continue with protocol treatment per RTOG 1016 ARM 2. 2. Anticipated RT Start next week as planned Pt understands and agrees with plan and knows to call the [place], [place]. clinic with any further questions or concerns. Mr Modi also knows that he can contact me with any protocol questions or concerns. Salud Amaro ACTIVITY LEADER CCRP RTOG Research Nurse documented in this encounter Plan of Treatment Upcoming Encounters Date Type Department Care Team (Late st Contact Info) Description 05/24/2025 11:00 AM EDT Office Visit Radiation Oncology at [address] [phone] Jesse Mcmahan MD [facility] [place] [address] documented as of this encounter Visit Diagnoses Not on filedocumented in this encounter Care Teams Group Home Supervisor Relationship Specialty Start Date End Date Bj Alves MD [address] [place] [phone] PCP - General 06/25/10 04/02/23 documented as of this encounter
--- OUTSIDE RECORDS SUMMARY | 2024-08-01 15:31 | XMS_ITS | Encounter Summary ---
Author Organization [facility] [place] [address] Care Team Providers Care Associate Quality Engineer Name Role Phone Bj Alves MD Primary Care Provider Encounter Details Date Type Department Care Team (Late Contact Info) Description 02/02/2012 Orders Only [place] [phone] Jesse Mcmahan MD [facility] [place] [address] Head and neck cancer (Primary Dx) Social [...] AM EDT Office Visit Radiation Oncology at [address] [phone] Jesse Mcmahan MD [facility] [place] [address] Scheduled Orders Name Type Priority Associated Diagnoses Orde r Schedule Miscellaneous Lab request Lab Routine Head and neck cancer Expected: 02/03/2012 (Approximate), Expires: 02/01/2013 documented as of this encounter Visit Diagnoses Diagnosis Head and neck cancer- Primary Malignant neoplasm of head, face, and neck documented in this encounter Care Teams Associate Quality Engineer Relationship Specialty Start Date End Date Bj Alves MD [address] [place] [phone] PCP - General 06/25/10 04/02/23 documented as of this encounter
--- OUTSIDE RECORDS SUMMARY | 2024-08-01 15:31 | XMS_ITS | Encounter Summary ---
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 Mr Modi and his , Laura, were seen today in the Department of Radiation Oncology for discussion oftreatment options for his cancer and potential interest in participating in RTOG 1016. Objective of visit: Meet with the patient his in clinic to provide information regarding protocol [id number], answer questions or concerns about study plan and evaluate interest in study participation. Information Provided: Protocol was reviewed with patient by myself and Dr. Jesse Mcmahan, including, a description of the proposed care, treatment, services, medications, interventions, procedures, and follow-up including duration of subject???s participation in study. Potential discomforts and risks were reviewed. The patient was informed regarding the uncertainties, both in terms of benefit aswell as risks that are part of participation in clinical trials. Discussed confidentiality of patient???s health information as specified in the protocol. Pt was advised that he may discontinue treatment at any time and that refusing to participate or discontinuing treatment will not compromise thepatient???s access to treatment options or care. The patient was given written information regarding the protocol and was offered adequate time to review the information. The patient was given adequate time to ask questions and review concerns, all of which were answered to the patient???s satisfaction. Mr Wyatt discussed alternative treatment options with Dr. Mcmahan. Assessment/Outcome: Mr. Wyatt did sign consent to participate in RTOG 1016. A copy signed by both Mr. Wyatt and was mailed to Mr. Wyatt for his personal records. Mr. Wyatt and his , Laura, know to contact me with any protocol questions during the course of his participation in RTOG 1016. Salud Amaro RN BSN CCRP RTOG Research Nurse documented in this encounter Plan of Treatment Upcoming Encounters Date Type Department Care Team (Late st Contact Info) Description 05/24/2025 11:00 AM EDT Office Visit Radiation Oncology at [address] [phone] Jesse Mcmahan MD [facility] [place] [address] documented as of this encounter Visit Diagnoses Not on filedocumented in this encounter Care Teams Education Sales Consultant Relationship Specialty Start Date End Date Bj Alves MD [address] [place] [phone] PCP - General 06/25/10 04/02/23 documented as of this encounter
--- OUTSIDE RECORDS SUMMARY | 2024-08-01 15:31 | XMS_ITS | Encounter Summary ---
Author Organization [facility] [place] [address] Care Team Providers Care Storeperson Name Role Phone Bj Alves MD Primary Care Provider Encounter Details Date Type Department Care Team (Latest Contact Info) Description 01/13/2012 Unscheduled Encounter Hematology [place] [address] Al Nash, MANJU [facility] [place] [address] Dietary surveillance and counseling (Primary Dx) Social [...] as of this encounter Progress Notes * Al Nash, RD - 01/13/2012 1:29 PM EDT Received message from Leslie Holman that pt was requesting to speak to a dietitian regarding supplements and tx. Spoke with pt. He inquired about some supplements, but couldn't recall all that he was curious about. Provided me his email address to respond with evidence- based information. Emailed the following reply. Please refer to the [employer]'s Comprehensive Database for moredetails on these. I provided the detailed information to the pt from the website. Hello Salvador, It was nice talking to you today. I apologize for the length of the email. I was unable to make these into pdf files. I???ve added short comments to the supplements we discussed today and have provided the informationfrom the [employer] Comprehensive Database. Overall, I recommend discontinuing these once your therapy initiates. Below is the information on the following supplements from the: Vitamin C - C and E are antioxidants, which research is inconclusive if they are beneficial or limiting in the context of chemotherapy. I don???t recommend either during treatment. Vitamin E - see above. Wheat Grass - one concern here is the how safe is it from food borne bacteria as it is a sprouted grain/grass. I don???t recommend consuming it during treatment. Green Tea - a cup a day may be alright; however, it also depends upon which chemo you receive. Quecertin - this may have antioxidant effects. Again, wouldn???t take during therapy. Reservatol - there is little information on this, but it can interefere with cytochrome P450, whichis a group of enzymes dealing metabolic processes, particularly of drugs, toxins, etc. I don???t suggest taking this when your treatment begins as it could impact the efficacy of your chemotherapy. This is the link for [facility] Herbal information website: http://www.[facility].org/cancer-care/integrative-medicine/ajbes-gyjnx-outaglfysg-oth er-products If you read the consumer tab of the supplements, it should be very insightful. Feel free to email me the other supplements you had questions on. However, I feel after visiting the [facility] site, you???ll find this will help to steer you in the best direction. Thanks, documented in this encounter Plan of Treatment Upcoming Encounters Date Type Department Care Team (Late st Contact Info) Description 05/24/2025 11:00 AM EDT Office Visit Radiation Oncology at [address] [phone] Jesse Mcmahan MD [facility] [place] [address] documented as of this encounter Visit Diagnoses Diagnosis Dietary surveillance and counseling- Primary documented in this encounter Care Teams Storeperson Relationship Specialty Start Date End Date Bj Alves MD [address] [place] [phone] PCP - General 06/25/10 04/02/23 documented as of this encounter
--- OUTSIDE RECORDS SUMMARY | 2024-08-01 15:31 | XMS_ITS | Encounter Summary ---
Author Organization [facility] [place] [address] Care Team Providers Care Straddle Truck Driver Name Role Phone Bj Alves MD Primary Care Provider [phone] Encounter Details Date Type Department Care Team (Late Contact Info) Description 02/05/2012 External Results Audiology at [address] [phone] Yasmin Krishnan AUD Social History Tobacco Use Types Packs/Day Years [...] AM EDT Office Visit Radiation Oncology at [address] [phone] Jesse Mcmahan MD [facility] [place] [address] documented as of this encounter Procedures Procedure Name Priority Date/Time Associated Diagnosis Comments AUDIOLOGY SCAN Routine 02/03/2012 documented in this encounter Results * Scan Doc: Audiology (02/03/2012) Yasmin MADRIGAL MEDIA MGR SCAN EX T ORDR/RSLT documented in this encounter Visit Diagnoses Not on filedocumented in this encounter Care Teams Straddle Truck Driver Relationship Specialty Start Date End Date Bj Alves MD [address] [place] [phone] PCP - General 06/25/10 04/02/23 documented as of this encounter
--- OUTSIDE RECORDS SUMMARY | 2024-08-01 15:31 | XMS_ITS | Encounter Summary ---
[place] [address] Care Team Providers Care Director Of Medical Staff Services Name Role Phone Bj Alves MD Primary Care Provider [phone] Encounter Details Date Type Department Care Team (Late st Contact Info) Description 01/16/2012 1:55 PM EDT - 01/16/2012 3:08 [place] [phone] RESOURCE, AN[facility]IA[facility] None PET SCAN Social History Tobacco Use [...] Sign Reading Time Taken Comments Blood Pressure 134/70 01/16/2012 2:40 PM EDT Pulse 60 01/16/2012 2:40 PM EDT Temperature 36.8 ??C (98.2 ??F) 01/16/2012 2:40 PM ED T Respiratory Rate 18 01/16/2012 2:40 PM EDT Oxygen Saturation 97% 01/16/2012 2:40 PM EDT Inhaled Oxygen Concentration - - Weight - - Height - - Body Mass Index - - documented in this encounter Discharge Instructions * Discharge Instructions* Karley Fernandez RN - 01/16/2012 2:59 PM EDT POST ANESTHESIA INSTRUCTIONS Go home, rest, use caution on stairs. Change positions slowly. Do not smoke if you are alone. Diet light to regular as tolerated today. If nausea occurs start with clear liquids and progress slowly. No driving, operating machinery, alcoholic beverages and no important decisions for 24 hours. Monitor IV site for signs and symptoms of infection: increasing redness, swelling, foul drainage, if occurs contact M.D. Patients who have had endotrachial tubes (this tube, used by anesthesia department, is passed down your throat after you are asleep, to ensure safe air passage during your operation). A sore throat is normal due to the tube. Cold liquids or soothing lozenges will help ease the discomfort. The generalized muscle aches are due to the medication given to you just before the tube is inserted. As the medication wears off, you may develop muscle soreness, which usually goes away in 12-24 hours. documented in this encounter Medications at Time [...] daily. 06/04/2012 documented as of this encounter Miscellaneous Notes * Miscellaneous - Provider, Scanning - 01/17/2012 12:25 AM EDT * Miscellaneous - Provider, Scanning - 01/16/2012 1:19 PM EDT documented in this encounter Plan of Treatment Upcoming Encounters Date Type Department Care Team (Late st Contact Info) Description 05/24/2025 11:00 AM EDT Office Visit Radiation Oncology at [address] [phone] Jesse Mcmahan MD [facility] DR [place] [address] documented as of this encounter Procedures Procedure Name Priority Date/Time Associated Diagnosis Comments PET SCAN 01/16/2012 9:55 PM EDT Squamous cell cancer base of tongue POCT GLUCOSE Routine 01/16/2012 12:55 PM EDT documented in this encounter Results * POCT GLUCOSE LAB USE ONLY (01/16/2012 12:55 PM EDT) Glucose, POC 110 60 - 199 mg/dL [facility] Comment: Supplemental ranges: <110 mg/dL before meals <200 mg/dL all other times of the day Blood specimen (specimen) 01/16/2012 12:55 PM EDT 01/16/2012 12:55 PM EDT Jose Enrique Butcher MD POINT OF CARE TEST O RDERABLES [facility] documented in this encounter Visit Diagnoses Not on filedocumented in this encounter Active and Recently Administered Medications Care Teams Director Of Medical Staff Services Relationship Specialty Start Date End Date Bj Alves MD [address] [place] [phone] PCP - General 06/25/10 04/02/23 documented as of this encounter
--- OUTSIDE RECORDS SUMMARY | 2024-08-01 15:31 | XMS_ITS | Encounter Summary ---
Author Organization [facility] [place] [address] Care Team Providers Care Clinical Fellow Name Role Phone Bj Alves MD Primary Care Provider [phone] Encounter Details Date Type Department Care Team (Latest Contact Info) Description 02/13/2012 Unscheduled Encounter Hematology Oncology at [address] [phone] Sabine Nash, MANJU [facility] [place] [address] Dietary surveillance and counseling (Primary Dx) Social [...] Progress Notes * Sabine Nash, RD - 02/13/2012 4:32 PM EDT Initial TF/G-tube Consult Current Wt: 103.6 kg on 02/03/12 Ht: 175 cm IBW: 70 kg +/- 10% Adjust BW: 83.4 kg Kcal needs: 25-30 kcals at Adj BW: 2000 - 2500 Protein needs: @ 1.3 - 1.5 g/kg Adj: 108- 125 Fluid needs: 2500 - 3000 mls TF Recommendations:9 cans Fibersource H/N via gravity bag to provide: 2250 kcals, 121.5 g pro, and 1827 mls free water/day. Pt instructed to flush tube with 60 mls before and after each feeding. Pt will need and add'l 313 to 813 mls of water/day (1.5 - 3.5 cups) taken p.o. Or via tube. The above recommendations meet 100% of pt's SECURITY CONTROLS ASSESSOR's for kcal, vitamins, and minerals. Recommend administering 3 cans/time as mealsover a period of 1-2 hours, TID. Will continue to follow during tx. documented in this encounter Plan of Treatment Upcoming Encounters Date Type Department Care Team (Late st Contact Info) Description 05/24/2025 11:00 AM EDT Office Visit Radiation Oncology at [address] [phone] Jesse Mcmahan MD [facility] [place] [address] documented as of this encounter Visit Diagnoses Diagnosis Dietary surveillance and counseling- Primary documented in this encounter Care Teams Clinical Fellow Relationship Specialty Start Date End Date Bj Alves MD [address] [place] [phone] PCP - General 06/25/10 04/02/23 documented as of this encounter
--- OUTSIDE RECORDS SUMMARY | 2024-08-01 15:31 | XMS_ITS | Encounter Summary ---
Author Organization [facility] [place] [address] Care Team Providers Care Merchandise Shopper Name Role Phone Bj Alves MD Primary Care Provider [phone] Reason for Visit * Reason Comments Chemotherapy RTOG 1016 Cetuximab Encounter Details Date Type Department Care Team (Tobin st Contact Info) Description 02/17/2012 12:00 PM EDT Office Visit Hematology Oncology at [address] [phone] CLINIC, DR AMARAL HEM/ONC Head and neck [...] Progress Notes * Cordelia Schumacher RN - 02/17/2012 4:46 PM EDT INFUSION THERAPY ADMINISTRATION NOTES DIAGNOSIS: H&N Cancer CYCLE #: 1 REASON FOR VISIT: PROTOCOL 1016 Cetuximab Load SUBJECTIVE Salvador offers no complaints. OBJECTIVE LAB DATA: WNL IV ACCESS: Mediport Pre administration: Chemotherapy orders independently verified for drug name, route, and dosage per patient's height, weight and BSA by Cordelia Schumacher RN and Tash Louis RN. REACTIONS (DESCRIPTION, TIME, INTERVENTION AND EFFECTIVENESS) none ASSESSMENT Salvador was awake, alert and he tolerated treatment well. 30 min into infusion vital signs @ 1415-Temp 37.0- Pulse 54- Resp 18- BP 119/70- sat 97% 60 min post infusion vital signs @ 1700-Temp 36.9-Pulse 67-Resp 18-BP 118/73-sat 96% Pt. chemo teaching instructions included: During clinic hours (8am-5pm Thursday-Thursday): pt. can call [phone] with questions or concerns. After clinic hours (5pm-8am Thursday-Thursday and weekends) pt can call [phone] and ask for the time broker/oncologist continuity clerk for Dr. Underwood or Dr. Lucy Wyatt verbalized understanding of potential chemotherapy side effects and home care including but not limited to- handwashing to prevent infection, signs and symptoms of low blood counts(fever, fatigue, bleeding), to call with a fever of 100.4 or greater, any significant constipation/diarrhea, importance of nutrition and fluid intake (drinking at least 32-64 ounces of non-caffeinated beverages/day), mouth care. Sebastian Wyatt verbalized understanding of how to take prescription medications given for home use after chemotherapy. Patient has compazine ordered. PLAN Return to clinic next week for cetuximab followed by XRT. documented in this encounter Plan of Treatment Upcoming Encounters Date Type Department Care Team (Late st Contact Info) Description 05/24/2025 11:00 AM EDT Office Visit Radiation Oncology at [address] [phone] Jesse Mcmahan MD [facility] [address] documented as of this encounter Visit Diagnoses Diagnosis Head and neck cancer- Primary Malignant neoplasm of head, face, and neck documented in this encounter Administered Medications Inactive Administered Medications - up to 3 most recent administrations Medication Order MAR Action Action Date Dose Rate Site cetuximab (ERBITUX) chemo infusion 900 mg 900 mg, Intravenous, ONCE, 1 dose, On Thu02/17/12 at 1200, Administer over 2 Hours, Max infusion rate = 300 mL/hr. Product is dispensed in glass. Given 02/17/2012 1:47 PM EDT 900 mg dexamethasone sodium (PF) 10 mg in sodium chloride 0.9% 51 mL IVPB Intravenous, at 204 mL/hr, ONCE, On Thu02/17/12 at 1315, 1 dose Given 02/17/2012 1:15 PM EDT 204 mL/hr diphenhydrAMINE (BENADRYL) 50 mg in sodium chloride 0.9% 51 mL IVPB Intravenous, at 204 mL/hr, ONCE, On Thu02/17/12 at 1200, 1 dose Given 02/17/2012 1:00 PM EDT 204 mL/hr famotidine (PEPCID) tablet 20 mg 20 mg, Oral, ONCE, 1 dose, On Thu02/17/12 at 1200, Routine Given 02/17/2012 1:00 PM EDT 20 mg sodium chloride 0.9% 1,000 mL with magnesium sulfate 1 g infusion at 1,000 mL/hr, Intravenous, ONCE, 1 dose, On Thu02/17/12 at 1200, Infuse after Cetuximab New Bag 02/17/2012 3:55 PM EDT 1000 mL/hr documented in this encounter Care Teams Merchandise Shopper Relationship Specialty Start Date End Date Bj Alves MD [address] [place] [phone] PCP - General 06/25/10 04/02/23 documented as of this encounter
--- OUTSIDE RECORDS SUMMARY | 2024-08-01 15:31 | XMS_ITS | Encounter Summary ---
Author Organization [facility] [place] [address] Care Team Providers Care Supervisor Filling And Packing Name Role Phone Bj Alves MD Primary Care Provider [phone] Reason for Visit * Reason Onset Date Comments Advice Only 01/13/2012 Encounter Details Date Type Department Care Team (Late st Contact Info) Description 01/13/2012 Telephone Hematology [place] [address] Butch Catalan MD [address] [place] [address] [place] [address] Advice Only Social History Tobacco Use Types Packs/Day Years [...] encounter Miscellaneous Notes * Telephone Encounter - Butch Catalan MD - 01/13/2012 5:07 PM EDT Returned phone call. Discussed treatment options. He prefers to proceed with primary chemoRT, rather than surgery. Has PET/CT under general anesthesia Monday 01/15. Has had dental clearance; fluoride trays to be molded 01/13. Has Mediport and G-tube in place. Will ask Rad Onc team to proceed with simulation scheduling [facility]. We discussed neoadjuvant chemotherapy, but since we should be able to proceed with concurrent chemoRT quickly I do not feel this is indicated. Butch Catalan MD, FACP Hematology/Oncology Section, [facility] snuff grinder and screener, [employer] [phone] documented in this encounter Plan of Treatment Upcoming Encounters Date Type Department Care Team (Late st Contact Info) Description 05/24/2025 11:00 AM EDT Office Visit Radiation Oncology at [address] [phone] Jesse Mcmahan MD [facility] [place] [address] documented as of this encounter Visit Diagnoses Diagnosis Cancer of base of tongue Malignant neoplasm of base of tongue documented in this encounter Care Teams Supervisor Filling And Packing Relationship Specialty Start Date End Date Bj Alves MD [address] [place] [phone] PCP - General 06/25/10 04/02/23 documented as of this encounter
--- OUTSIDE RECORDS SUMMARY | 2024-08-01 15:31 | XMS_ITS | Encounter Summary ---
Author Organization [facility] Address [facility] [place] [address] Care Team Providers Care Staff Counsel Name Role Phone Bj Alves MD Primary Care Provider [phone] Reason for Visit * Reason Comments Labs Only Encounter Details Date Type Department Care Team (Latest Contact Info) Description 01/22/2012 1:24 PM EDT - 01/22/2012 11:59 PM EDT Hospital Encounter Hematology [place] [address] CLINIC, Jesse Matthews MD [facility] [place] [address] Head and neck cancer Discharge Disposition: Home [...] as of this encounter Progress Notes * Zaira Sheikh RN - 01/22/2012 1:58 PM EDT Port accessed using sterile technique. Blood work drawn and sent to lab. Site unremarkable. documented in this encounter Plan of Treatment Upcoming Encounters Date Type Department Care Team (Late st Contact Info) Description 05/24/2025 11:00 AM EDT Office Visit Radiation Oncology at [address] [phone] Jesse Mcmahan MD [facility] [place] [address] documented as of this encounter Procedures Procedure Name Priority Date/Time Associated Diagnosis Comments CREATININE STAT 01/22/2012 1:50 PM EDT Head and neck cancer documented in this encounter Results * Creatinine, serum (01/22/2012 1:50 PM EDT) Creatinine 0.91 0.80 - 1.50 mg/dL [facility] Comment: Please note that the pediatric reference intervals supplied above were not validated at [facility]. Results from pediatric patients should be interpreted in conjunction to the patient's age, height and muscle mass. Est Glomerular Filtration Rate >60 >=60 [facility] Comment: The National Kidney Disease Education Program [...] J Am Soc Nephrol;6:1963-72. Blood specimen (specimen) 01/22/2012 1:50 PM EDT 01/22/2012 1:55 PM EDT Narrative Resulting Agency Comment Spec In Lab Jesse Mcmahan MD CHEMISTRY ORDERABLES Performing Organization Address City/State/[facility] Co in Phone Number [facility] documented in this encounter Visit Diagnoses Diagnosis Head and neck cancer Malignant neoplasm of head, face, and neck documented in this encounter Care Teams Staff Counsel Relationship Specialty Start Date End Date Bj Alves MD [address] [place] [phone] PCP - General 06/25/10 04/02/23 documented as of this encounter
--- OUTSIDE RECORDS SUMMARY | 2024-08-01 15:31 | XMS_ITS | Encounter Summary ---
Author Organization [facility] [place] [address] Care Team Providers Care Pelt Salter Name Role Phone Bj Alves MD Primary Care Provider [phone] Reason for Visit * Reason Comments Chemotherapy Cetuximab dose #2 RT OG PROTOCOL 1016 Encounter Details Date Type Department Care Team (Late st Contact Info) Description 02/24/2012 10:30 AM EDT Office Visit Hematology Oncology at [address] [phone] CLINIC, DR AMARAL HEM/ONC Rakesh Underwood MD [...] Progress Notes * Cordelia Schumacher RN - 02/24/2012 10:44 AM EDT INFUSION THERAPY ADMINISTRATION NOTES DIAGNOSIS: Oropharangeal Cancer CYCLE #: 2 REASON FOR VISIT: Cetuximab #2 RTOG PROTOCOL #1016 SUBJECTIVE Sebastian offers that he is happy that his tumor has reduced in size. OBJECTIVE LAB DATA:WBC 9.2/Hgb 12.7/Hct 39.1/Plt 228/ANC 6.01/Potassium 3.8/Magnesium 1.9 IV ACCESS: Mediport accessed at [facility]. Pre administration: Chemotherapy orders independently verified for drug name, route, and dosage per patient's height, weight and BSA by Cordelia Schumacher RN and Flaquita Sterling RN. REACTIONS (DESCRIPTION, TIME, INTERVENTION AND EFFECTIVENESS) none RTOG PROTOCOL 1016~ VITAL SIGNS(pre infusion and 60 min post infusion) [id number]-U 97.7~P 65~R 16~BP 137/86~Sat 98% 60 min [id number]~36.5~P 62~R 16~BP 135/82~Sat 98% ASSESSMENT Sebastian was awake, alert and he tolerated treatment well. PLAN Return to clinic daily for XRT and weekly for Cetuximab. * Heather Momin RPH - 02/24/2012 12:00 AM EDT * Pharmacist Waste Documentation * Drug: ndc [id number] (Cetuximab) Date Administered: 02/24/12 Time: 3:06 PM Amount Pharmacy Discarded: 37 mg documented in this encounter Plan of Treatment Upcoming Encounters Date Type Department Care Team (Late st Contact Info) Description 05/24/2025 11:00 AM EDT Office Visit Radiation Oncology at [address] [phone] Jesse Mcmahan MD [facility] [place] [address] documented as of this encounter Visit Diagnoses Diagnosis Head and neck cancer- Primary Malignant neoplasm of head, face, and neck documented in this encounter Administered Medications Inactive Administered Medications - up to 3 most recent administrations Medication Order MAR Action Action Date Dose Rate Site cetuximab (ERBITUX) chemo infusion 563 mg 563 mg, Intravenous, ONCE, 1 dose, On Thu02/24/12 at 1030, Administer over 1 Hours, Max infusion rate = 300 mL/hr. Product is dispensed in glass. Given 02/24/2012 11:08 AM EDT 563 mg dexamethasone sodium (PF) 10 mg in sodium chloride 0.9% 51 mL IVPB Intravenous, at 204 mL/hr, ONCE, On Thu02/24/12 at 1030, 1 dose Given 02/24/2012 10:40 AM EDT 204 mL/hr diphenhydrAMINE (BENADRYL) 25 mg in sodium chloride 0.9% 50.5 mL IVPB Intravenous, at 202 mL/hr, ONCE, On Thu02/24/12 at 1030, 1 dose Given 02/24/2012 10:10 AM EDT 202 mL/hr famotidine (PEPCID) tablet 20 mg 20 mg, Oral, ONCE, 1 dose, On Thu02/24/12 at 1030, Routine Given 02/24/2012 10:40 AM EDT 20 mg sodium chloride 0.9% 1,000 mL with magnesium sulfate 1 g infusion at 1,000 mL/hr, Intravenous, ONCE, 1 dose, On Thu02/24/12 at 1030, Infuse after Cetuximab New Bag 02/24/2012 12:15 PM EDT 1000 mL/hr documented in this encounter Care Teams Pelt Salter Relationship Specialty Start Date End Date Bj Alves MD [address] [place] [phone] PCP - General 06/25/10 04/02/23 documented as of this encounter
--- OUTSIDE RECORDS SUMMARY | 2024-08-01 15:31 | XMS_ITS | Encounter Summary ---
Author Organization [place] [address] Care Team Providers Care Business Improvement Manager Name Role Phone Bj Alves MD Primary Care Provider [phone] Reason for Visit * Reason Comments On Treatment Visit Encounter Details Date Type Department Care Team (Late st Contact Info) Description 03/05/2012 8:15 AM EDT Follow-Up Radiation Oncology at [address] [phone] Tyson Limon MD Head and neck cancer (Primary Dx) [...] Sign Reading Time Taken Comments Blood Pressure 147/89 03/05/2012 8:44 AM EDT Pulse 83 03/05/2012 8:44 AM EDT Temperature - - Respiratory Rate 16 03/05/2012 8:44 AM EDT Oxygen Saturation 96% 03/05/2012 8:44 AM EDT Inhaled Oxygen Concentration - - Weight 104.3 kg (230 lb) 03/05/2012 8:44 AM EDT Height - - Body Mass Index 33.95 03/02/2012 9:24 AM EDT documented in this encounter Progress Notes * Tyson Limon MD - 03/05/2012 1:21 PM EDT Focused Problem List: Squamous cell carcinoma of L BOT, 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 1 PPD x 38 yrs. Quit 08/2011. Developed odynophagia early 11/2011, abx did not improve, . Referred to ENT. He does note some coughing in the morning ove the past year. Therapy: Enrolled on RTOG 1016, randomized to cetuximab arm Identification: Sebastian Wyatt is currently undergoing radiation therapy at [facility] . Current treatment dose: 818Gy in 9 fractions. Anticipated total dose: 70 Gy in 35 fractions. Evaluation of Port Verification Films: done Changes in medical condition: Skin: Physical exam: mild erythema/papular rash noted on face and scalp Comments: 1 0 1 2 3 4 No change from baseline Follicular, faint or dull erythema/ epilation/dry desquamation/ decreased sweating Tender or bright erythema, patchy moist desquamation/ moderate edema Confluent, moist desquamatiom other than skin folds, pitting edema Ulceration, hemorrhage, necrosis Cough: Comments: 0 0 1 2 3 4 No change from baseline Mild sx of dry cough, non-prescription intervention indicated Moderate sx, narcotic anti-tussive indicated, limiting instrumental ADLs Severe cough unresponsive to Rx, severe pneumonitis, intermittent 02/steroids; limiting self-care ADLs NA Dyspnea: Physical Exam: Pulmonary: CTAB no w/r/r Comments:0 0 1 2 3 4 No change from baseline SOB with moderate exertion SOB with minimal exertion, limiting instrumentalADLs SOB @ rest, severe pneumonitis, intermittent 02/steroids limiting self-care ADLs Life threatening consequences/ continuous 02 or assisted ventilation Esophagitis: Comments: 0 0 1 2 3 4 No change [...] fistula Weight : 228 lbs initial Change: no recorded change Other: Assessment: Minimal toxicity from RT Cetuximab rash present. Plan: Continue RT per prescription Skin: Jeans cream QD Pain control: no intervention needed at this time Esophagitis: no intervention needed at this time , Karina/pharengeal reaction:grade 1 erythema--usees Saline with good effect Cough: No intervention needed at this time Alimentation: followed by joy loader, weight stable, all by mouth documented in this encounter Plan of Treatment Upcoming Encounters Date Type Department Care Team (Late st Contact Info) Description 05/24/2025 11:00 AM EDT Office Visit Radiation Oncology at [address] [phone] Jesse Mcmahan MD [facility] [place] [address] documented as of this encounter Visit Diagnoses Diagnosis Head and neck cancer- Primary Malignant neoplasm of head, face, and neck documented in this encounter Care Teams Business Improvement Manager Relationship Specialty Start Date End Date Bj Alves MD [address] [place] [phone] PCP - General 06/25/10 04/02/23 documented as of this encounter
--- OUTSIDE RECORDS SUMMARY | 2024-08-01 15:31 | XMS_ITS | Encounter Summary ---
Author Organization [facility] [place] [address] Care Team Providers Care Bowling Alley Floors Installer Name Role Phone Bj Alves MD Primary Care Provider [phone] Reason for Visit * Reason Comments Chemotherapy Cetuximab week #3 Encounter Details Date Type Department Care Team (Late st Contact Info) Description 03/02/2012 10:30 AM EDT Office Visit Hematology Oncology at [address] [phone] CLINIC, DR AMARAL HEM/ONC Rakesh Underwood MD [...] as of this encounter Progress Notes * oJse Gray, PharmD - 03/02/2012 12:45 PM EDT * Pharmacist Waste Documentation * Drug: ndc [id number] (Cetuximab) Date Administered: 03/02/12 Time: 1200 Amount Pharmacy Discarded: 37 mg * Cordelia Schumacher RN - 03/02/2012 9:31 AM EDT INFUSION THERAPY ADMINISTRATION NOTES DIAGNOSIS: Oropharangeal Cancer CYCLE #: week #3 REASON FOR VISIT: Cetuximab concurrent with XRT RTOG PROTOCOL #1016 SUBJECTIVE Sebastian offers that he is happy that his tumor has reduced in size & that his Cetuximab rash has started on his head and face. Patient has groin rash that is itchy, hydrocortisone cream works well. OBJECTIVE LAB DATA: WBC 9.8/Hgb 12.8/Hct 38.71/Plt 233/ANC 7.55/Potassium 3.7/Magnesium 1.7 ([facility] 03/01/2012) IV ACCESS: Mediport accessed at [facility]. Pre administration: Chemotherapy orders independently verified for drug name, route, and dosage per patient's height, weight and BSA by Cordelia Schumacher RN and Flaquita Sterling RN . REACTIONS (DESCRIPTION, TIME, INTERVENTION AND EFFECTIVENESS) none RTOG PROTOCOL 1016~ VITAL SIGNS(pre infusion and 60 min post infusion) Ibx-rrrahoaxtvpwhc-U 36.6~P 81~R 16~BP 137/79~Sat 98% 60 min [id number]~37.0~P66~R18~BP114/65~Sat97% ASSESSMENT Sebastian was awake, alert and he tolerated treatment well. PLAN Return to clinic daily for XRT and weekly for Cetuximab. Call in interim with any questions or concerns. documented in this encounter Plan of Treatment Upcoming Encounters Date Type Department Care Team (Late st Contact Info) Description 05/24/2025 11:00 AM EDT Office Visit Radiation Oncology at [address] [phone] Jesse Mcmahan MD [facility] [place] [address] documented as of this encounter Visit Diagnoses Diagnosis Head and neck cancer- Primary Malignant neoplasm of head, face, and neck documented in this encounter Administered Medications Inactive Administered Medications - up to 3 most recent administrations Medication Order MAR Action Action Date Dose Rate Site cetuximab (ERBITUX) chemo infusion 563 mg 563 mg, Intravenous, ONCE, 1 dose, On Thu03/02/12 at 1030, Administer over 1 Hours, Max infusion rate = 300 mL/hr. Product is dispensed in glass. Given 03/02/2012 10:59 AM EDT 563 mg dexamethasone sodium (PF) 10 mg in sodium chloride 0.9% 51 mL IVPB Intravenous, at 204 mL/hr, ONCE, On Thu03/02/12 at 1030, 1 dose Given 03/02/2012 10:30 AM EDT 204 mL/hr diphenhydrAMINE (BENADRYL) 25 mg in sodium chloride 0.9% 50.5 mL IVPB Intravenous, at 202 mL/hr, ONCE, On Thu03/02/12 at 1030, 1 dose Given 03/02/2012 10:15 AM EDT 202 mL/hr famotidine (PEPCID) tablet 20 mg 20 mg, Oral, ONCE, 1 dose, On Thu03/02/12 at 1030, Routine Given 03/02/2012 10:15 AM EDT 20 mg sodium chloride 0.9% 1,000 mL with magnesium sulfate 1 g infusion at 1,000 mL/hr, Intravenous, ONCE, 1 dose, On Thu03/02/12 at 1030, Infuse after Cetuximab New Bag 03/02/2012 12:15 PM EDT 1000 mL/hr documented in this encounter Care Teams Bowling Alley Floors Installer Relationship Specialty Start Date End Date Bj Alves MD [address] [place] [phone] PCP - General 06/25/10 04/02/23 documented as of this encounter
--- OUTSIDE RECORDS SUMMARY | 2024-08-01 15:31 | XMS_ITS | Encounter Summary ---
Author Organization [facility] [place] [address] Care Team Providers Care List Of First Job Ideas Name Role Phone Ash Hernandez MD Primary Care Provider [phone] Reason for Visit * Reason Comments Radiation Follow-up Encounter Details Date Type Department Care Team (Late st Contact Info) Description 02/03/2012 11:30 AM EDT Follow-[place] [phone] Jesse Mcmahan MD [facility] [place] [address] Head and neck cancer; Cancer of base of tongue Discharge Disposition: [...] Sign Reading Time Taken Comments Blood Pressure 116/67 02/03/2012 11:36 AM EDT Pulse 63 02/03/2012 11:36 AM EDT Temperature 36.4 ??C (97.5 ??F) 02/03/2012 11:36 AM E DT Respiratory Rate 20 02/03/2012 11:36 AM EDT Oxygen Saturation 97% 02/03/2012 11:36 AM EDT Inhaled Oxygen Concentration - - Weight 103.6 kg (228 lb 8 oz) 02/03/2012 11:36 A M EDT Height 175.3 cm (5' 9.02) 02/03/2012 11:36 AM E DT Body Mass Index 33.73 02/03/2012 11:36 AM EDT documented in this encounter Progress Notes * Jesse Mcmahan MD - 02/04/2012 1:45 PM EDT Radiation Oncology Follow Up Note Primary MD: ASH HERNANDEZ MD Referring MD: [...] 3.3 x 5.2 cm. ?? 11/27/11 PET-CT ([facility] Despite premedication, severe [...] Positive for HPV genotype p16 ?? Therapy: pending Interval History: Sebastian Wyatt returns for follow up to discuss participation in RTOG 1016. Physical Examination: Filed Vitals: 02/03/12 1136 BP: 116/67 Pulse: 63 Temp: 36.4 ??C (97.5 ??F) TempSrc: Oral Resp: 20 Weight: 103.647 kg (228 lb 8 oz) SpO2: 97% Physical Exam Constitutional: He is well-developed, well-nourished, and in no distress. HENT: Visual inspection of OC and OP revealed no evidence of suspicious masses or lesions, although examination limited by body habitus. Moisture good. Eyes: EOM are normal. Pupils are equal, round, and reactive to light. Neck: No tracheal deviation present. Lymphadenopathy: He has cervical adenopathy (Palpation reveals ~4 cm L level II [address].). Assessment: Sebastian Wyatt has been simulated and treatment planning is ongoing. His cancer wasfound to be HPV+ and he present to discuss participation in RTOG 1016, which randomized HPV+ pts with OP cancer to RT + cisplatin vs RT + cetuximab. We discussed the rationale, logistics and efficacydata of this trial in detail, noting the data supporting the use of cetuximab in this context. We again discussed the risks of therapy, including but not limited to short term sequelae (fatigue, skinerythema, mucositis, dysphagia, ageusia, xerostomia, weight loss) and termite helper sequelae (skin fibrosis, termite helper dysphagia potentially requiring a permanent feeding tube, xerostomia, osteoradionecrosis, esophageal stricture, and the low probability of significant damage to soft tissue, bone or skin requiring surgical or medical intervention). Mr. Wyatt expressed an understanding of these risks. The patient had a number of questions regarding the RTOG trial, optimal therapy and potential side effects. These questions were answered to their satisfaction. He wished to participate in this trial and consent was signed. Plan: ?? Proceed with DECORATING MACHINE TENDER per RTOG 1016. documented in this encounter Plan of Treatment Upcoming Encounters Date Type Department Care Team (Late st Contact Info) Description 05/24/2025 11:00 AM EDT Office Visit Radiation Oncology at [address] [phone] Jesse Mcmahan MD [facility] DR RADIATION [facility]COL[facility] [place] [address] documented as of this encounter Procedures Procedure Name Priority Date/Time Associated Diagnosis Comments SCAN, PERIPHERAL BLOOD Routine 2 10:23 AM EDT DIFFERENTIAL, AUTOMATED Routine 02/03/2012 10:23 AM EDT CBC (WITH DIFF) Routine 02/03/2012 10:23 AM EDT Head and neck cancer MAGNESIUM Routine 02/03/2012 10:23 AM EDT Head and neck cancer COMPREHENSIVE METABOLIC PANEL Routine 02/03/2012 10:23 AM EDT Head and neck cancer documented in this encounter Results * DIFFERENTIAL, AUTOMATED (02/03/2012 10:23 AM EDT) Neutrophil % 68.9 34.0 - 71.0 % CERNER MILLENNIUM Neutrophil Absolute 5.46 1.50 - 6.30 x10(3)/mcL CERNER MILLENNIUM Lymph % 22.5 19.0 - 53.0 % CERNER MILLENNIUM Lymphocytes Abs 1.8 1.0 - 3.6 x10(3)/mcL CERNER MILLENNIUM Monocyte % 5.1 4.0 - 13.0 % CERNER MILLENNIUM Monocyte Abs 0.4 0.2 - 1.0 x10(3)/mcL CERNER MILLENNIUM Eos % 2.3 0.0 - 7.0 % CERNER MILLENNIUM Eosinophils Abs 0.2 0.0 - 0.5 x10(3)/mcL CERNER MILLENNIUM Basophil % 0.9 0.0 - 2.0 % CERNER MILLENNIUM Baso Absolute 0.1 0.0 - 0.2 x10(3)/mcL CERNER MILLENNIUM Immature Gran % 0.30 0.00 - 0.66 % CERNER MILLENNIUM Comment: Immature granulocytes(IG's)percentage and absolute count will include metamyelocytes, myelocytes, and promyelocytes. Blood smears from CBCs yielding IG's will be scanned manually for concordance. If this scan disagrees with the automated IG or if promyelocytes are noted, a manual differential will be performed. Immature Gran Absolute 0.02 0.00 - 0.05 x10(3)/mcL RAMU GLYNNIUM Blood specimen (specimen) 02/03/2012 10:23 AM EDT 02/03/2012 10:30 AM EDT Jesse Mcmahan MD HEMATOLOGY ORDERABLE S Performing Organization Address [facility] de Phone Number RAMU COBOS * SCAN, PERIPHERAL BLOOD (02/03/2012 10:23 AM EDT) Plat estimate Normal CERCHAITANYA VALDEZENNIUM RBC Morphology Abnormal CERNE R MILLENNIUM Microcyte gtr than 10 /HPF CERNER MILLENNIUM Ovalocytes 1-5 /HPF CERNER MILLENNIUM [place] Cells 1-5 /HPF CERNER MILLENNIUM Stippled RBC Present >1/HPF RAMU GLYNNIUM Blood specimen (specimen) 02/03/2012 10:23 AM EDT 02/03/2012 10:30 AM EDT Narrative Resulting Agency Comment Spec In Lab Jesse Mcmahan MD HEMATOLOGY ORDERABLE S Performing Organization Address [facility] Phone Number RAMU COBOS * Magnesium (02/03/2012 10:23 AM EDT) Pathologist [facility] Magnesium 0.88 0.69 - 1.07 mmol/L RAMU COBOS Blood specimen (specimen) 02/03/2012 10:23 AM EDT 02/03/2012 10:30 AM EDT Narrative Resulting Agency Comment Spec In Lab Jesse Mcmahan MD CHEMISTRY ORDERABLES Performing Organization Address [facility] Phone Number RAMU COBOS * Comprehensive metabolic panel (non-fasting) (02/03/2012 10:23 AM EDT) Glucose 98 60 - 199 mg/dL [facility] Comment:Diabetes: >=200 mg/d L plus symptoms Blood Urea Nitrogen 15 10 - 20 mg/dL CERNER MILLENNIUM Creatinine 0.95 0.80 - 1.50 mg/dL CERNER MILLENNIUM Comment: Please note that the pediatric reference intervals supplied above were not validated at [facility]. Results from pediatric patients should be interpreted [...] In Lab Jesse Mcmahan MD CHEMISTRY ORDERABLES [facility] * (ABNORMAL) CBC (with Diff) [...] Malignant neoplasm of head, face, and neck Cancer of base of tongue Malignant neoplasm of base of tongue documented in this encounter Care Teams List Of First Job Ideas Relationship Specialty Start Date End Date Ash Hernandez MD [address] [place] [phone] PCP - General 06/25/10 04/02/23 documented as of this encounter
--- OUTSIDE RECORDS SUMMARY | 2024-08-01 15:31 | XMS_ITS | Encounter Summary ---
Author Organization [facility] [place] [address] Care Team Providers Care Lens Block Gauger Name Role Phone Bj Alves MD Primary Care Provider [phone] Reason for Visit * Reason Comments Head And Neck Cancer Encounter Details Date Type Department Care Team (Late st Contact Info) Description 03/02/2012 9:30 AM EDT Follow-Up Hematology Oncology at [address] [phone] Rakesh Underwood MD Head and [...] Sign Reading Time Taken Comments Blood Pressure 137/79 03/02/2012 9:24 AM EDT Pulse 81 03/02/2012 9:24 AM EDT Temperature 36.6 ??C (97.9 ??F) 03/02/2012 9:24 AM ED T Respiratory Rate 16 03/02/2012 9:24 AM EDT Oxygen Saturation 98% 03/02/2012 9:24 AM EDT Inhaled Oxygen Concentration - - Weight 103.5 kg (228 lb 2.8 oz) 03/02/2012 9:24 AM EDT Height 175.3 cm (5' 9.02) 03/02/2012 9:24 AM ED T Body Mass Index 33.68 03/02/2012 9:24 AM EDT documented in this encounter Progress Notes * Rakesh Underwood MD - 03/02/2012 10:10 AM EDT Diagnosis: 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 Patient has been enrolled on RTOG 1016 andrandomized to the radiation therapy plus Erbitux arm. Subjective: Padmini comes in today for week 3 Erbitux. He is starting to get a little bit of a rash in his scalp and has a scrotal rash as well. He is using some EMLA cream to the scrotum and that is helping significantly. He feels well overall and does have a little bit of a dry mouth. He is also noticed a little bit of change in his sense of taste. He is keeping his appetite up and eating well and has not lost any weight in the last week. Otherwise he feels fine with a negative review of systems. Review of Systems Constitutional: Negative for fever, [...] his cheeks. He has a scrotal rash that is a bit more noticeable.. Neurological: Negative. Hematological: Negative for adenopathy. Head: [...] Laboratory today is reviewed. White count is 9.8 hemoglobin 12.8 hematocrit 38.7 platelet count is 233 ANC is 7.55 CMP is completely normal with creatinine of 0.8 normal electrolytes liver tests are normal with a bilirubin of 0.6 ALP of 86 and SGOT of 22. Magnesium is normal at 1.7 Assessment/Plan: Clem has a locally advanced squamous cell carcinoma of the base of the tongue with left cervical metastasis. He is tolerating the Erbitux exceptionally well and has had a marked response with over 80% reduction in his tumor mass by palpation in his left neck. I believe it is too soon to consider antibiotics as a rash overall is minimal although it's a scrotal rash worsens any one would considerdoxycycline. He'll keep an eye on things and we'll see him back in a week with lab. We'll go ahead with week 3 Erbitux today.. documented in this encounter Procedure Notes * Provider, Scanning - 03/08/2012 3:49 PM EDTAssociated Order(s): SCAN DOC: LAB documented in this encounter Plan of Treatment Upcoming Encounters Date Type Department Care Team (Late st Contact Info) Description 05/24/2025 11:00 AM EDT Office Visit Radiation Oncology at [address] [phone] Jesse Mcmahan MD [facility] [place] [address] documented as of this encounter Procedures Procedure Name Priority Date/Time Associated Diagnosis Comments LAB SCAN 03/08/2012 3:49 PM EDT documented in this encounter Results * SCAN DOC: LAB (03/08/2012 3:49 PM EDT) Narrative 03/08/2012 3:49 PM EDT Procedure Note Provider, Scanning - 03/08/2012 3:49 PM EDT Scanning Provider MEDIA MGR SCAN EXT O RDR/RSLT documented in this encounter Visit Diagnoses Diagnosis Head and neck cancer- Primary Malignant neoplasm of head, face, and neck documented in this encounter Care Teams Lens Block Gauger Relationship Specialty Start Date End Date Bj Alves MD [address] [place] [phone] PCP - General 06/25/10 04/02/23 documented as of this encounter
--- OUTSIDE RECORDS SUMMARY | 2024-08-01 15:31 | XMS_ITS | Encounter Summary ---
Author Organization Formerly [facility] [place] [address] Care Team Providers Care Digital Developer Name Role Phone Bj Alves MD Primary Care Provider [phone] Reason for Visit * Reason Comments Follow-up Encounter Details Date Type Department Care Team (Late st Contact Info) Description 02/17/2012 11:00 AM EDT Follow-Up Hematology Oncology at [address] [phone] Raul Ayala MD [facility] [address] [place] [address] Head and neck cancer (Primary Dx) Discharge [...] Sign Reading Time Taken Comments Blood Pressure 130/79 02/17/2012 11:31 AM EDT Pulse 57 02/17/2012 11:31 AM EDT Temperature 37 ??C (98.6 ??F) 02/17/2012 11:31 AM EDT Respiratory Rate 18 02/17/2012 11:31 AM EDT Oxygen Saturation 97% 02/17/2012 11:31 AM EDT Inhaled Oxygen Concentration - - Weight 103 kg (227 lb 1.2 oz) 02/17/2012 11:31 A M EDT Height 175.3 cm (5' 9.02) 02/17/2012 11:31 AM E DT Body Mass Index 33.52 02/17/2012 11:31 AM EDT documented in this encounter Progress Notes * Raul Ayala MD - 02/17/2012 5:12 PM EDT Diagnosis: 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 HPV positive (genotype 16) Subjective:I have anxiety Interim history: Mr. Wyatt currently on clinical trial randomized to concurrent radiation and targeted therapy with cetuximab. He denies any pain, nausea, vomiting, fever or chills. Her energy level at his baseline. He has no problem with swallowing food Past medical history, social history and family are reviwed: No changes since the visit Review of Systems Constitutional: Negative for fever, [...] adenopathy. Head: Normocephalic, without obvious abnormality, atraumatic Palpable mildly tender mass about 4 cm in left submandibular area Eyes: PERRL, conjunctiva/corneas clear, EOM's intact, fundi [...] Supraclavicular, and axillary nodes normal Neurologic: Normal He is fully active to carry all activitities without restrains. Performance status is zero Labs: Calcium 9.4, BUN 11, creatinine 1.1, albumin 4.0, AST 19, ALT 29, alkaline phosphatase 82, total bilirubin 0.54, magnesium 1.9, WBC 8.01, hemoglobin 12.4, platelet count 216, ANC 5.62 Assessment/Plan: has a locally advanced squamous cell carcinoma of the base of the tongue with left cervical metastasis. He is is scheduled definitive chemoradiation therapy on RTOG 1016 trial , which randomized HPV+ pts with OP cancer to RT + cisplatin vs RT + cetuximab. Sebastian is in Cetuximab +RT arm. Risks and side effects were gone over in details.He will receive a loading dose of Cetuximab today. The plan is to start radiation and weekly Cetuximab next week.He will follow with next week with CBC, CMP and magnesium level. Plan was discussed with the patient. All questions were answered to patient's satisfaction documented in this encounter Procedure Notes * Provider, Scanning - 02/18/2012 10:35 AM EDTAssociated Order(s): SCAN DOC: LAB * Provider, Scanning - 02/17/2012 4:40 PM EDTAssociated Order(s): SCAN DOC: CHEMOTHERAPY documented in this encounter Plan of Treatment Upcoming Encounters Date Type Department Care Team (Late st Contact Info) Description 05/24/2025 11:00 AM EDT Office Visit Radiation Oncology at [address] [phone] Jesse Mcmahan MD [facility] [place] [address] documented as of this encounter Procedures Procedure Name Priority Date/Time Associated Diagnosis Comments LAB SCAN 02/18/2012 10:35 AM EDT CHEMOTHERAPY SCAN 02/17/2012 4:4 0 PM EDT documented in this encounter Results * SCAN DOC: LAB (02/18/2012 10:35 AM EDT) Narrative 02/18/2012 10:35 AM EDT Procedure Note Provider, Scanning - 02/18/2012 10:35 AM EDT Scanning Provider MEDIA MGR SCAN EXT O RDR/RSLT * SCAN DOC: CHEMOTHERAPY (02/17/2012 4:40 PM EDT) Narrative 02/17/2012 4:40 PM EDT Procedure Note Provider, Scanning - 02/17/2012 4:40 PM EDT Scanning Provider MEDIA MGR SCAN EXT O RDR/RSLT documented in this encounter Visit Diagnoses Diagnosis Head and neck cancer- Primary Malignant neoplasm of head, face, and neck documented in this encounter Care Teams Digital Developer Relationship Specialty Start Date End Date Bj Alves MD [address] [place] [phone] PCP - General 06/25/10 04/02/23 documented as of this encounter
--- OUTSIDE RECORDS SUMMARY | 2024-08-01 15:31 | XMS_ITS | Encounter Summary ---
Author Organization [facility] [place] [address] Care Team Providers Care Cadd Drafter Name Role Phone Bj Alves MD Primary Care Provider [phone] Encounter Details Date Type Department Care Team (Late st Contact Info) Description 01/09/2012 9:08 [place] [phone] Genevieve Benitez MD [facility] [place] [address] Howard Oneil MD Anesthesia Record Procedure Summary Procedure Name Responsible Anesthesiologist Anesthesia Start Time Anesthesia Stop Time PERCUTANEOUS GASTROSTOMY Genevieve Benitez MD 01/09/12 0908 01/09/12 1131 Events Date Time Event Comment 01/09/2012 0746 0908 Start 1131 Stop Meds * Agents No agents on file. * Blood No blood administrations on file. Lines, Drains, and Airways Type Details Placement Removal (RETIRED) Port A Cath 01/09/12; Chest 01/09/12 0 000 by Zaira Sheikh APRN (RETIRED) Power Port 01/09/12; 1035; Chest; Right; 8F LP D[address] [facility] Port lot# [id number] 01/09/12 1035 by Marion Huerta RN Incision 12/12/11; other (see comments) (oropharynx - biopsies); 03/31/22 (LDA cleanup utility RA#[id number]); 1715 (LDA cleanup utility RA#[id number]) 12/12/11 0000 by Tara [...] OR Notes * Anesthesia Postprocedure Evaluation - Mayte Cardona MD - 01/09/2012 11:40 AM EDT Patient: Sebastian Wyatt Procedure(s) Performed: Procedure(s): PERCUTANEOUS GASTROSTOMY VENOUS ACCESS PLACEMENT Patient location: PACU Post-op pain: Adequate analgesia Post-op nausea: no nausea or vomiting Last Vitals: Filed Vitals: 01/09/12 0727 BP: 142/79 Pulse: 70 Temp: 36.2 ??C (97.2 ??F) Resp: 16 Post-op cardiovascular and respiratory status: is stable Level of consciousness: awake, alert and oriented Complications: no apparent complications, tolerated the procedure well and no evidence of recall Fluid Status: normal * Anesthesia Preprocedure Evaluation - Genevieve Benitez MD - 01/09/2012 7:42 AM EDT Images from the original note were not included. Anesthesia Evaluation No hx of anesthetic complications Airway Mallampati: III TM distance: >3 FB Neck ROM: full Comment: Thick neck. Dental - normal exam Pulmonary - normal exam breath sounds clear to auscultation (+) shortness of breath, sleep apnea CPAP, ROS comment: Former cigars-quit August 2011 Cardiovascular Exercise tolerance: good (+) hypertension, ROS comment: Hyperlipidemia Neuro/Psych (+) psychiatric history (Anxiety and claustrophobia.) GI/Hepatic/Renal (+) GERD well controlled, Endo/Other (+) hypothyroidism, Comments: H/O Glucose intolerance. H/O Psoriasis (possible psoriatic arthritis). Thalassemia minor.Abdominal Anesthesia Plan ASA 3 MAC with intravenous induction 56 yo former smoker with base of tongue tumore for PEG/mediport placement. Of note, patient was difficult laryngoscopy for recent biopsy in OR resulting in chipped front left tooth. Reportedly acceptable mask airway with oral airway in place. Discussed implications of difficult airway with patient.Plan MAC with GA back up, adjunct airway equipment to be available. Anesthetic plan and risks discussed with patient. Plan discussed with resident. documented in this encounter Miscellaneous Notes * Addendum Note - Ethel Huynh - 03/23/2012 3:17 PM EDT Addendum created 03/23/12 1517 by Ethel Huynh Modules edited:Anesthesia Responsible Staff * Addendum Note - Tonya Cheung - 01/12/2012 2:15 PM EDT Addendum created 01/12/12 1415 by Tonya Cheung Modules edited:Anesthesia Events, Anesthesia Responsible Staff documented in this encounter Plan of Treatment Upcoming Encounters Date Type Department Care Team (Late st Contact Info) Description 05/24/2025 11:00 AM EDT Office Visit Radiation Oncology at [address] [phone] Jesse Mcmahan MD [facility] [place] [address] documented as of this encounter Visit Diagnoses Not on filedocumented in this encounter Care Teams Cadd Drafter Relationship Specialty Start Date End Date Bj Alves MD [address] [place] [phone] PCP - General 06/25/10 04/02/23 documented as of this encounter
--- OUTSIDE RECORDS SUMMARY | 2024-08-01 15:31 | XMS_ITS | Encounter Summary ---
Author Organization [facility] [place] [address] Care Team Providers Care Welding Manager Name Role Phone Bj Alves MD Primary Care Provider [phone] Encounter Details Date Type Department Care Team (Late Contact Info) Description 01/22/2012 4:00 PM EDT Initial consult [place] [address] Social History Tobacco Use Types Packs/Day Years [...] EDT Office Visit Radiation Oncology at [address] [phone] Jesse Mcmahan MD [facility] [address] [place] [address] documented as of this encounter Visit Diagnoses Not on filedocumented in this encounter Care Teams Welding Manager Relationship Specialty Start Date End Date Bj Alves MD [address] [place] [phone] PCP - General 06/25/10 04/02/23 documented as of this encounter
--- OUTSIDE RECORDS SUMMARY | 2024-08-01 15:31 | XMS_ITS | Encounter Summary ---
[place] [address] Care Team Providers Care Asparagus Cutter Name Role Phone Bj Alves MD Primary Care Provider [phone] Encounter Details Date Type Department Care Team (Late st Contact Info) Description 02/23/2012 Notes Only [place] [phone] Salud Amaro, RN Social History Tobacco Use [...] encounter Progress Notes * Salud Amaro - 02/25/2012 12:06 PM EDT RESEARCH NURSE NOTE RTOG 1016 Phase III Trial of Radiotherapy Plus Cetuximab VERSUS Chemoradiotherapy In HPV-Associated Oropharynx Cancer Date: 02/23/2012 Time:1630: PT ID: [id number] Case #: [id number] Study Day: Week 1 RT/Infusion # 2 Cetuximab Pre-Chemo Assessment Mr. 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 Mr. Modi consented to participate in RTOG 1016, signed consent and was subsequently randomized to ARM 2: RT with Cetuximab. Mr Wyatt received Day 1 Cetuximab Loading Dose @ 400 mg/m2 on 02/17/2012. Mr. Wyatt is scheduled to being Day 1 RT and receive Infusion #2 Cetuximab tomorrow, 02/24/2012. Toxicity Assessment EVENT CTCAE GRADE ATTRIBUTION TO TREATMENT Onset >/= Grade 3 Resolution < Grade 3 None Pre-Chemo labs reviewed. Assessment: No dose limiting or modifying toxicities noted Plan: 1. Pt appears stable and able to continue with protocol treatment per RTOG 1016 ARM 2. Salud Amaro [employer]ER [employer] SUPERVISOR CCRP RTOG Research Nurse documented in this encounter Plan of Treatment Upcoming Encounters Date Type Department Care Team (Late st Contact Info) Description 05/24/2025 11:00 AM EDT Office Visit Radiation Oncology at [address] [phone] Jesse Mcmahan MD [facility] [place] [address] documented as of this encounter Visit Diagnoses Not on filedocumented in this encounter Care Teams Asparagus Cutter Relationship Specialty Start Date End Date Bj Alves MD [address] [place] [phone] PCP - General 06/25/10 04/02/23 documented as of this encounter
--- OUTSIDE RECORDS SUMMARY | 2024-08-01 15:31 | XMS_ITS | Encounter Summary ---
Author Organization [facility] [place] [address] Care Team Providers Care General Manager Food Name Role Phone Bj Alves MD Primary Care Provider [phone] Encounter Details Date Type Department Care Team (Late Contact Info) Description 01/22/2012 Orders Only [place] [address] Jesse Mcmahan MD [facility] [place] [address] Head and neck cancer (Primary Dx) Social [...] EDT Office Visit Radiation Oncology at [address] [phone] Jesse Mcmahan MD [facility] [place] [address] documented as of this encounter Results * Creatinine, serum (01/22/2012 1:50 PM EDT) Creatinine 0.91 0.80 - 1.50 mg/dL [facility] Comment: Please note that the pediatric reference intervals supplied above were not validated at [facility]. Results from pediatric patients should be interpreted in conjunction to the patient's age, height and muscle mass. Est Glomerular Filtration Rate >60 >=60 [facility] Comment: The National Kidney Disease Education Program [...] diabetic kidney disease. References: http://nkdep.nih.gov/resources/NKDEP_Suggestn4Labs_0606_508.pdf http://www.kidney.org/professionals/kls/pdf/faq_gfr.pdf Lauryn Felder, Ari NA, Adan AK, Santino TS, Елена AD, Luigi MODESTO. Relative performance of the MDRD and CKD-EPI equations for estimating glomerular filtration rate among patients with varied clinical presentations. Clin J Am Soc Nephrol;6:1963-72. Blood specimen (specimen) 01/22/2012 1:50 PM EDT 01/22/2012 1:55 PM EDT Narrative Resulting Agency Comment Spec In Lab Jesse Mcmahan MD CHEMISTRY ORDERABLES [facility] documented in this encounter Visit Diagnoses Diagnosis Head and neck cancer- Primary Malignant neoplasm of head, face, and neck documented in this encounter Care Teams General Manager Food Relationship Specialty Start Date End Date Bj Alves MD [address] [place] [phone] PCP - General 06/25/10 04/02/23 documented as of this encounter
--- OUTSIDE RECORDS SUMMARY | 2024-08-01 15:31 | XMS_ITS | Encounter Summary ---
Author Organization Formerly [facility] [place] [address] Care Team Providers Care Epic Stork Specialists Name Role Phone Bj Alves MD Primary Care Provider [phone] Reason for Visit * Reason Onset Date Comments Other 01/23/2012 Patient Teaching G-Tube Encounter Details Date Type Department Care Team (Late st Contact Info) Description 01/23/2012 Telephone [place] [address] Jesse Mcmahan MD [facility] [place] [address] Other (Patient Teaching G-Tube) Social History Tobacco Use Types Packs/Day Years [...] encounter Miscellaneous Notes * Telephone Encounter - Myra Pacheco RN - 01/23/2012 10:29 AM EDT Delayed documentation follow up telephone note from 01/16/12 patient teaching for Head and Neck cancer patients and G-tube teaching over the phone and information mailed to patient. G-tube Instructions: Date of G-tube placement: 01/09/12 Instruction methods: Verbal and Visual Instructions given: Site Care: Informed that there will be metal anchors around the tube insertion site for 10 days. They will secure the tube and they are to remain dry and intact. The dressing can be changed 3 days after insertion. After 3 days, wash daily with soap and water, observed site and apply light dressing.Instructed to observe the site for any purulent drainage, increased redness or swelling and report abnormal findings to their MD. After the anchors are removed no dressing needed. The importance of thorough hand washing was reinforced. Tube Care: Informed need to keep tube secure, with tape or flexitrack. Need to flush tube daily. Flushing instructions: Instructed to flush tube with at least 60 cc H20. Showed them a push/pause technique if the flushing feels sluggish. Informed them not to put anything in tube for the first 24 hours, then the tube can be flushed daily with water. Troubleshooting hints: Instructed not to put anything in the tube except for water and eventually Tube Feeding formula will provided to them. Reinforced the importance of checking with MD before putting any medications in the tube. Also, instructions were given if the tube becomes dislodged. Pain Management: Informed pt that localized discomfort at the insertion site is common and to take analgesics as directed. Patient may experience excess gas walking sometimes helps relieve gas. Call MD if pain is not relieved by prescribed medication. Return demonstration: None at this time. Sebastian Wyatt was going to his local MD in [facility] for the anchor removeal and patient demonstration for G-Tube flushing. Patient refused VNA services at this time. Instructions for Management of Radiation Side Effects for Head and Neck Cancer Patient Diagnosis: Base of Tongue People present for instruction: Sebastian Wyatt Method of instruction: Verbal Materials Given: _x _[facility] Radiation Oncology general information packet, _ x_copy of Recommended Supply and To-do List for Head and Neck Cancer Radiation Therapy Patients, _ x_brochures on mouth care and xerostomia from [employer] [place] [employer] Importance of clearance from dentist discussed: Reviewed Dental Care and Floride Trays Equipment to consider obtaining: Reviewed with patient he may not need the below items _x _Humidifier _x _Water Pic _x _Suction machine if needed once well into treatment. Mouth care supplies: _x _Recipe given for salt and baking soda and water as follows, 1 teaspoon of salt and baking soda mixed in 1 quart bottle. May leave at room temperature if covered, may refrigerate. _ x_Demonstration of 15 second vigorous mouth rinse. Skin care supplies: _x _Unscented soaps in the radiation field, rinse well, pat dry. _x _Wear natural fiber clothing that does not rub at the neck. Avoid friction. _x _Use skin care products that have no aluminum, petroleum, or scent. Expected side effects: _x _Reviewed: Dysphagia, dysgeusia, anorexia, salivary changes, xerostomia, nausea, skin side effects, fatigue, deconditioning, hair loss at occipital region, submental lymphedema, Medications to manage side effects: _x _Mouth rinses _x _Antiemetics _x _Analgesics _ x_Stressed of the use of antiemetic and analgesic medications to increase the likelihood patient will continue to take nourishment by mouth, improve quality of life. _ _For concurrent chemoradiation patients, medical oncology will manage anti- emetic and analgesic medications. x Ancillary therapies during and after treatment outlined: _x _Speech therapist for swallow evaluation initially, at mid treatment and post treatment, prn as well. _x _Physical therapy while on treatment for light conditioning to conserve lean muscle mass. Manuallymphatic drainage post treatment will be needed. Weekly appointments: _ x_Radiation oncologist Dr. Mcmahan and radiation oncology nurse _ x_Dietician _ x_Medical oncology as he is receiving concurrent chemoradiation Patient is going to have Chemo/Radiation in [facility] Daily to do list given: _x _Mouth care: 6-8 times/day rinsing, _ x_Brushing teeth 3 times, _ x_Small, frequent meals, _x _Maintain weight. _ x_Place list in visible place in home Comments: spent 30 minutes discussing side effects with patient. documented in this encounter Plan of Treatment Upcoming Encounters Date Type Department Care Team (Late st Contact Info) Description 05/24/2025 11:00 AM EDT Office Visit Radiation Oncology at [address] [phone] Jesse Mcmahan MD [facility] [place] [address] documented as of this encounter Visit Diagnoses Not on filedocumented in this encounter Care Teams Epic [employer] Special[employer] Relationship Specialty Start Date End Date Bj Alves MD [address] [place] [phone] PCP - General 06/25/10 04/02/23 documented as of this encounter
--- OUTSIDE RECORDS SUMMARY | 2024-08-01 15:31 | XMS_ITS | Encounter Summary ---
Author Organization [facility] [place] [address] Care Team Providers Care Food Service Coordinator Name Role Phone Bj Alves MD Primary Care Provider [phone] Encounter Details Date Type Department Care Team (Latest Contact Info) Description 01/22/2012 4:00 PM EDT Ancillary Appointment [place] [address] Jesse Mcmahan MD [facility] [address] [place] [address] Cancer of base of tongue (Primary Dx) [...] Progress Notes * Jesse Mcmahan MD - 01/23/2012 10:06 AM EDT Simulation was performed in anticipation of radiotherapy for squamous cell carcinoma of the head and neck. The consent was reviewed with the physician and signed by both the patient and physician. Anintravenous line was placed in anticipation of contrast administration. The patient was then brought to the simulation room and a time-out was performed per protocol. he was then placed on the simulation table and a custom cushion was constructed for his neck. A custom aquaplast mask was then created. The simulation CT scan was performed with contrast, images were reviewed and approved by the physician, and tattoos were created by the therapy staff as indicated. The patient tolerated the procedure without difficulty, and was given a time to return to start radiotherapy. documented in this encounter Plan of Treatment Upcoming Encounters Date Type Department Care Team (Late st Contact Info) Description 05/24/2025 11:00 AM EDT Office Visit Radiation Oncology at [address] [phone] Jesse Mcmahan MD [facility] [place] [address] documented as of this encounter Visit Diagnoses Diagnosis Cancer of base of tongue- Primary Malignant neoplasm of base of tongue documented in this encounter Care Teams Food Service Coordinator Relationship Specialty Start Date End Date Bj Alves MD [address] [place] [phone] PCP - General 06/25/10 04/02/23 documented as of this encounter
--- OUTSIDE RECORDS SUMMARY | 2024-08-01 15:31 | XMS_ITS | Encounter Summary ---
Author Organization [facility] [place] [address] Care Team Providers Care Rod Cup Filler Name Role Phone Bj Alves MD Primary Care Provider [phone] Encounter Details Date Type Department Care Team (Late st Contact Info) Description 03/02/2012 10:30 AM EDT Ancillary Appointment Hematology Oncology at [address] [phone] [facility] [place] [address] Social History Tobacco Use Types Packs/Day Years [...] Progress Notes * Sabine Nash RD - 03/02/2012 11:22 AM EDT [facility] Dietitian Follow Up Seen by: Gisele Nash MS, RD, LD Patient, Dx, and Tx: 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 Patient has been enrolled on RTOG 1016 and randomized to the radiation therapy plus Erbitux arm. Assessment: Wt: 103.5 kg on 03/02/12: Stable Previous Wt: 103.5 kg on 02/24/12 Initial Wt: 103 kg on 02/17/12 Kcal needs: 25-30 kcals at Adj BW: 2000 - 2500 Protein needs: @ 1.3 - 1.5 g/kg Adj: 108- 125 Fluid needs: 2500 - 3000 mls Labs: reviewed Meds: reviewed Food intake as compared to normal: __X__Unchanged ____Increased ____ Decreased When I feel I am losing weight, I will eat more. I have found a great ice cream (Gordon's Banana Pudding). I can taste everything in it. Am: huge bowl of oatmeal (he estimates 2 servings), maple syrup, and 2 slices of toast with PB, onepiece had honey Noon: tuna salad wrap with potato chips PM: indonesian buffet Snacks: nuts, raisins, yogurt Supplements: makes milkshake w/ blueberries, banana, and almond milk, and vanilla bulgarian yogurt, mayput some banana pudding ice cream in it, too. Typically has 5/7 days week. Hasn't tried Orgain G-Tube: flushing daily Teas, vitamins, or other nutritional supplements: D3 Food allergies or avoidances: [facility] Appetite: 8-9/10 scale My tastes are off, but that's not changing how much I am eating. Nausea: slight upset stomach, but not refluxing up, doesn't last long; takes antacid and antinauseameds and this takes care of it. Vomiting: denies Chewing: denies Swallowing: no problems Xerostomia: +, occasionally does soda/salt rinses, does do fluride, sugarless mints, feels all these do help Taste Changes: +, tip of tongues feels numb, foods are starting to be not as intense Bowels: regular, going daily, currently not taking anything for [...] as possible. We discussed that the next two weeks will really start to bring issues to the surface and swallowing is expected to be compromised. Once oral intake is compromised, gtube will [...] The above recommendations meet 100% of pt's REMELT WORKER's for kcal, vitamins, and minerals. Recommend administering [...] Will follow up with Mr. Wyatt in oneweek (s) to re-evaluate. documented in this encounter Plan of Treatment Upcoming Encounters Date Type Department Care Team (Late st Contact Info) Description 05/24/2025 11:00 AM EDT Office Visit Radiation Oncology at [address] [phone] Jesse Mcmahan MD [facility] [place] [address] documented as of this encounter Visit Diagnoses Not on filedocumented in this encounter Care Teams Rod Cup Filler Relationship Specialty Start Date End Date Bj Alves MD [address] [place] [phone] PCP - General 06/25/10 04/02/23 documented as of this encounter
--- OUTSIDE RECORDS SUMMARY | 2024-08-01 15:31 | XMS_ITS | Encounter Summary ---
[facility] [place] [address] Care Team Providers Care Softlines Supervisor Name Role Phone Ash Hernandez MD Primary Care Provider [phone] Encounter Details Date Type Department Care Team (Latest Contact Info) Description 01/09/2012 10:06 AM EDT - 01/09/2012 11:59 PM EDT Hospital [place] [phone] Tonsillar cancer Social History Tobacco Use Types Packs/Day [...] on file documented as of this encounter Discharge Instructions * Discharge Instructions* Ash Caballero, DO - 01/09/2012 12:27 PM EDT [facility] Department of Vascular and Interventional Radiology Discharge Instructions for your Chest Port x You have received a ???Power Port?? , which provides access for infusions and blood draws. What makes this a ???Power Port?? is the unique ability to ???power inject?? contrast (intravenous dye) through the port when getting a CT scan, which produces superior images (pictures). Patients who don???t have these special ports need to have an IV started if they need dye injected for their CT scan. Your port is printed with the letters ???CT?? which can be detected by x- ray to identify it as a ???Power Port?? . You will be provided with an ID card stating the scraper burrer and type of port youhave. Please carry this with you in a safe place. . You have received a Mediport/Chestport, which provides access for infusions/ blood draws. Bandage: There is a sterile dressing over the port site consisting of small gauze with a clear dressing (Tegaderm or [id number] ). This dressing should be left in place for 48 hours. If the clear dressing becomes loose you should place tape over the edges to secure it in place. Note: If you have steri-strips beneath your dressing, simply allow them to fall off. Do not peel them off. Bathing: Do not take a shower until 48 hours after your port is placed; after this time you may shower with the dressing in place, then remove it and pat your skin dry. After 48 hours, we recommend that you cover the area with Saran Wrap and tape the edges for 1 week while showering, facing away from the shower stream. You may use a bandaid to cover the site after the 48 hours are up if there is any drainage. No tub baths, whirlpools or swimming for one week following port placement. What to expect when your port is accessed: 1. You may feel tenderness the first few times it is accessed but generally this subsides over time. Ask your healthcare provider to use a local anesthetic on the site if discomfort is a problem for you. You may ask for a prescription for a topical cream (EMLA) from your clinician; you may apply athome prior to your appointments, to help numb the skin over your port. 2. The clinician should be wearing sterile gloves and a mask during the access procedure 3. The skin over and 2 inches around the port should be cleaned with a disinfectant 4. Tell the clinician if you would like the skin numbed (lidocaine) before the access needle is placed. 5. Unless you are unable to take heparin (blood thinner), the port should be injected with a heparin solution before deaccess (at end of each treatment or blood draw). When to call your healthcare provider: If you notice bleeding from the puncture site in your neck, or from the port incision on your chest, you should apply firm pressure over the site for 10-15 minutes, keeping the site covered. Call if you are still bleeding after 10-15 minutes. If you develop pain, redness, drainage or swelling at or around the port site, or the puncture sitein the neck If you develop fever (elevation of more than 2 degrees or greater than 101F) and/or shaking chills When to call the Interventional Radiology Department: Please call with any questions or concerns. If it is during regular office hours, please call [phone]. If it is after regular office hours, or on weekends or holidays, please call [phone] and ask to speak to the Burner Tender tangible personal property appraiser for Interventional Radiology. _x__ You have received medication during your procedure to help lesson anxiety and keep you comfortable. These medications affect judgement and reaction time. We recommend that you do not drive, operate equipment, sign any important documents, or smoke unattended for 24 hours following your procedure. Because of the sedation, be careful on stairs, as you may be unsteady on your feet. You may resume your regular diet as tolerated. IV site -- slight redness, or tenderness is normal, you can use a warm compress. If tenderness and redness increases or foul drainage occurs, please contact your M. D. Revised 08/15/11 [facility] Vascular and Interventional Radiology Discharge Instructions for Tube Care Activity: Rest for the next 24 hours.You may be sore for several days after the tube is inserted. This may limit your activity. You should be careful to avoid activity that causes a pulling sensation, pain or kinking of the tube. When to call your healthcare provider: There may be a little blood in the drainage after the tube is placed or changed. Contact your healthcare provider if the bleeding doesn???t stop in a couple of days or if the drainage becomes bright red. If drainage leaks around the tube, or there is decreased drainage into the bag or bulb. If the tube stops draining. If skin around the tube is red or irritated or if you see any swelling or drainage around the tube. If you have shaking chills. If you have a fever equal to or greater than 101 degrees Fahrenheit If you have unusual pain at the tube site. If the smell of the drainage becomes strong, call your healthcare provider. Tube Care: If your tube is connected to a drainage bag or bulb, it is important to empty it regularly. Monitor the dressing daily and change as needed. You may take a shower but you must cover the dressing with plastic wrap to keep it dry. It may be easier to take a sponge bath. You may NOT take a tub bath or swim. It is important that you take care of your tube. It can be pulled out if it is caught on something.If you think the tube is partly pulled out or if it comes out completely, we can usually put it back in easily if you come to see us within 12-24 hours. It is important to keep the skin around the tube healthy. You should clean the area with soap and water a minimum of three times per week. Replace the gauze dressing after you have cleaned and completely dried the skin. Gastropexy sutures should be released in 7-10 days. When to call the Interventional Radiology Department: Please call with any questions or concerns. If it is during regular office hours, please call [phone]. If it is after regular office hours, or on weekends or holidays, please call [phone] and ask to speak to the Burner Tender tangible personal property appraiser for Interventional Radiology. Revised 03/30/2009 documented in this encounter Medications at Time [...] of this encounter Progress Notes * Maxi Saavedra MD - 01/08/2012 3:43 PM EDT PRE-PROCEDURE VIR NOTE: PCP: ASH HERNANDEZ MD Referring Physician: Larry Procedure Indication: Base of tongue cancer Planned Procedure: Gastrostomy tube Presenting Diagnosis/ Complaint: Sebastian Wyatt is a 56 y.o. 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 Will require enteral feeding given current dysphagia and expected diminished ability to take po post-op and chemoradiation. Presentation: Hx. 1 PPD x 38 yrs. Quit 08/2011. Developed odynophagia early 11/2011, abx did not improve, . Stagin12/09/11 CT H&N with contrast ([facility]): Mixed attenuation mass with lare low density areas suggesting necrotic change present deep to anterior aspect L SCM. Mass smoothly marginated, max 3.3 x 5.2 cm. 11/27/11 PET-CT ([facility]): Despite premedication, severe claustrophobia [...] C - Left tonsil: negative for malignancy Past Medical/Surgical History Patient Active Problem List Diagnoses Code ??? [...] ??? 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 DIFFICULT AIRWAY [id number] Past Medical History Diagnosis Date ??? Acid reflux ??? Thyroid dysfunction ??? Arthritis ??? Psoriasis Past Surgical History Procedure Date ??? Carpal tunnel release rt ??? Laryngoscopy, dirct, op scope, biopsy 12/12/2011 LARYNGOSCOPY, MICROSCOPE, WITH BIOPSY performed by BECKY GANN at [facility] MAIN OR ??? Laryngoscopy, dirct, op scop, exc tumr 12/12/2011 LARYNGOSCOPY, DIRECT, EXCISION OF TUMOR, CORD STRIPPING, MICRO performed by BECKY GANN at [facility] MA[facility] OR Medications: Current outpatient prescriptions ordered prior to encounter Medication Sig ??? vitamin E 400 unit capsule Take 400 Units by mouth daily. ??? B Complex-Vitamin C-Folic Acid (NEPHROCAP) 1 mg capsule Take 1 capsule by mouth daily. ??? cholecalciferol, Vitamin D3, 400 unit tablet Take 400 Units by mouth daily. ??? ascorbic acid (VITAMIN C) 500 mg tablet Take 500 mg by mouth daily. ??? OXYcodone (ROXICODONE) 5 mg/5 mL solution Take 5 mLs by mouth every 4 hours as needed for Pain. ??? omeprazole (PRILOSEC) 20 mg capsule Take [...] % ointment Apply topically 2 times daily. Allergies: Review of patient's allergies indicates no known allergies. Social History and Habits: History Social History ??? 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 Lives near [facility] with , 10yo daughter, 2 horses, 2 dogs. Significant Family History: Family History Problem Relation Age of Onset ??? Heart Failure Mother ??? Diabetes ??? Heart Failure Father ??? Diabetes Father ??? Diabetes Mother ??? Thyroid Disease Sister hypothyroidism ??? Thyroid Disease Mother hypothyroidism Physical Exam: Pending Assessment/Plan: 56 yo gentleman with base of tongue cancer, for gastrostomy tube in preparation for resection and chemo/rt. Prophylactic antibiotic: Ancef 1 g IV Medications to discontinue: none Patient Positioning / Access site: Supine / luq documented in this encounter Procedure Notes * Maxi Saavedra MD - 01/09/2012 12:21 PM EDTProcedure(s): IR ALL GI PROCEDURES VIR PROCEDURE NOTE : Percutaneous gastrostomy tube placement. ACC#: [id number] Indication for Procedure: Oral cancer, requires enteric catheter for nutritional support during therapy. Procedure events and findings: After discussing risks (including infection and hemorrhage) and benefits, patient consented to the procedure. Prophylactic antibiotic Ancef 1g IV was administered. The epigastrium was prepared in sterile fashion, maximum sterile barrier technique was used throughout. A nasoenteric tube was placed under fluoroscopic guidance and used for insufflation of the stomach. Procedure performed with sedation by Anesthesia team, please see separate report. The skin over the stomach was infiltrated with 15 cc 1% lidocaine for anesthesia. An 18 gauge gastropexy needle was advanced under fluoroscopic guidance into the stomach with return of air. A T tack was deployed through the needle using a 0.035 wire under fluoroscopic guidance. This was repeated with one additional T tack. Between the T tacks, another puncture was made and over an 0.035?? guidewire the tract was dilated to 12 Fr. A 12 Fr locking pigtail gastrostomy tube (WhatleyHugh) was placed advanced over the wire. Loop was formed and secured. Contrast study demonstrated intragastric location of the catheter. The catheter was flushed with saline and secured to the skin. The patient tolerated the procedure well and there were no immediate complications. EBL: <5 cc. Contrast: 5 cc Omnipaque. Medications: Glucagon 0.5 mg IV, Cefazolin 1 GM IV, remainder as per Anesthesia. Fluoro Dose: 2.0 mins. Impression: Placement of a 12 Fr locking loop percutaneous gastrostomy tube. Recommendation: Tube may be used after 8 hours if bowel sounds have returned. Please flush tube with sterile saline or H20 after every use. Fellow: Ash Caballero DO Attending: Maxi Saavedra MD I, Dr. Saavedra, was present throughout the procedure. documented in this encounter Plan of Treatment Upcoming Encounters Date Type Department Care Team (Late st Contact Info) Description 05/24/2025 11:00 AM EDT Office Visit Radiation Oncology at [address] [phone] Jesse Mcmahan MD [facility] [place] [address] documented as of this encounter Procedures Procedure Name Priority Date/Time Associated Diagnosis Comments IR ALL GI PROCEDURES Routine 01/09/2012 11:20 AM EDT Tonsillar cancer documented in this encounter Results * IR all GI procedures (01/09/2012 11:20 AM EDT) Anatomical Region Laterality Modality Abdomen X-Ray Angiograph y 01/09/2012 11:2 0 AM EDT Narrative 01/11/2012 2:53 PM EDT ?VIR ?? PROCEDURE NOTE: Percutaneous gastrostomy tube ?? placement. ? ACC#: ?? [id number] ?Indication ?? for Procedure: Oral cancer, requires enteric ?? catheter for nutritional support during therapy. ?Procedure ?? Events and Findings: After discussing risks (including ?? infection and hemorrhage) and benefits, patient consented to the procedure. ?? Prophylactic antibiotic Ancef 1g IV was administered. The epigastrium was ?? prepared in sterile fashion, maximum sterile barrier technique was used ?? throughout. A nasoenteric tube was placed under fluoroscopic guidance and ?? used for insufflation of the stomach. Procedure performed with sedation by ?? Anesthesia team, please see separate report. ?The ?? skin over the stomach was infiltrated with 15 cc 1% lidocaine for anesthesia. ?? An 18 gauge gastropexy needle was advanced under fluoroscopic guidance into ?? the stomach with return of air. A T tack was deployed through the needle ?? using a 0.035 wire under fluoroscopic guidance. This was repeated with ?? one additional T tack. Between the T tacks, another puncture was made and ?? over a 0.035 guide wire the tract was dilated to 12 Fr. A 12 Fr locking ?? pigtail gastrostomy tube (Odilia) was placed advanced over the wire. ?? Loop was formed and secured. Contrast study demonstrated intragastric ?? location of the catheter. The catheter was flushed with saline and secured to ?? the skin. ?The ?? patient tolerated the procedure well and there were no immediate ?? complications. ?EBL: ?? <5 cc. ?Contrast: ?? 5 cc Omnipaque. ? Medications: ?? Glucagon 0.5 mg IV, Cefazolin 1 GM IV, remainder as per Anesthesia. ?Fluoro ?? Dose: 2.0 mins. ?Impression: ?? Placement of a 12 Fr locking loop percutaneous gastrostomy tube. ?Recommendation: ?? Tube may be used after 8 hours if bowel sounds have returned. Please flush ?? tube with sterile saline or H20 after every use. ?Fellow: ?? Ash Caballero, DO ? Attending: ?? Maxi Saavedra MD ?I, ?? Dr. Saavedra, was present throughout the procedure. ? ; ?? {CR} ? ; ?? {CR} ? ; ?? {CR} ? ; ?? {CR} ? ; ?? {CR} ? Film and interpretation reviewed by the attending Procedure Note Maxi Saavedra MD - 01/11/2012 VIR PROCEDURE NOTE: Percutaneous gastrostomy tube placement. ACC#: [id number] Indication for Procedure: Oral cancer, requiresenteric catheter for nutritional support during therapy. Procedure Events and Findings: After discussing risks (including infection and hemorrhage)and benefits, patient consented to the procedure. Prophylactic antibioticAncef 1g IV was administered. The epigastrium was prepared in sterile fashion, maximum sterile barrier technique was used throughout. A nasoenterictube was placed under fluoroscopic guidance and used for insufflation of thestomach. Procedure performed with sedation by Anesthesia team, please seeseparate report. The skin over the stomach was infiltrated with 15 cc 1%lidocaine for anesthesia. An 18 gauge gastropexy needle was advanced underfluoroscopic guidance into the stomach with return of air. A T tack was deployedthrough the needle using a 0.035 wire under fluoroscopic guidance. This wasrepeated with one additional T tack. Between the T tacks, another puncture wasmade and over a 0.035 guide wire the tract was dilated to 12 Fr. A 12 Frlocking pigtail gastrostomy tube (Odilia) was placed advanced over thewire. Loop was formed and secured. Contrast study demonstrated intragastric location of the catheter. The catheter was flushed with saline and securedto the skin. The patient tolerated the procedure well and there were no immediate complications. EBL: <5 cc. Contrast: 5 cc Omnipaque. Medications: Glucagon 0.5 mg IV, Cefazolin 1 GM IV, remainder as per Anesthesia. Fluoro Dose: 2.0 mins. Impression: Placement of a 12Fr locking loop percutaneous gastrostomy tube. Recommendation: Tube maybe used after 8 hours if bowel sounds have returned. Please flush tube with sterile saline or H20 after every use. Fellow: Ash Caballero DO Attending: Maxi Saavedra MD I, Dr. Saavedra, was present throughoutthe procedure. ; {CR} ; {CR} ; {CR} ; {CR} ; {CR} Film and interpretation reviewed by the attending Jesse Mcmahan MD IMG IR ORDERABLES documented in this encounter Visit Diagnoses Diagnosis Tonsillar cancer Malignant neoplasm of tonsil documented in this encounter Care Teams Softlines Supervisor Relationship Specialty Start Date End Date Ash Hernandez MD [address] [place] [phone] PCP - General 06/25/10 04/02/23 documented as of this encounter
--- OUTSIDE RECORDS SUMMARY | 2024-08-01 15:31 | XMS_ITS | Encounter Summary ---
[place] [address] Care Team Providers Care Patent Agent Name Role Phone Bj Alves MD Primary Care Provider [phone] Reason for Visit * Reason Onset Date Comments Pre Procedure Call 03/08/2012 Encounter Details Date Type Department Care Team (Late st Contact Info) Description 03/08/2012 Telephone [place] [address] Salud Amaro, RN Pre Procedure Call Social History Tobacco Use Types Packs/Day Years [...] * Telephone Encounter - Salud Amaro - 03/08/2012 5:55 PM EDT Images from the original note were not included. 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 Salvador Wyatt A# [id number] RTOG 1016 ARM 2 Cetuximab/RT 03/09/2012 Week 3 RT Infusion # 4 Cetuximab I have reviewed Mr. Modi???s labs drawn today. I have reviewed the Flowsheet and see that at the point in time, Salvador???s wt has been stable. I have read last weeks??? noted of Dr. Underwood and Dr. Limon and mucositis and rash do not appear=/> Grade 3 as of 03/05/2012. At this point in time, I do not see any toxicities that require a Cetuximab dose modification or delay. In speaking with Mr. Modi???s , Laura, at 1715 today, she indicated that she believes Salvador is taking ATIVAN before he leaves his house to help him with anxiety related to his RT Mask. Please assess Salvador???s medication regimen and adjust as necessary to accommodate comfort during RTas well as pt. safety. It may be that he should take Ativan upon arrival at [facility] or perhaps, a goat driver may be indicated. I will also leave a voice message requesting a call to me from [facility] to discuss this issue/concern. If you have any questions or concerns, PLEASE give me a call tomorrow before you treat Salvador and I will be glad to help. Thank you all for your great support and help with Salvador and his treatment via RTOG 1016. Ramona Amaro RN BSN CCRP RTOG Furniture Assembler And Installer/Research Nurse [address] [address] office; pager: [phone] Assessment: ?? Appears stable ?? No apparent dose limiting toxicities noted at this time ?? Potential for Injury ? Plan ?? Concerns reviewed with , chris Sanchez: The possibility that Mr Modi may be taking sedation and driving and dangers/risks involved. ?? Alternate plan discussed with her; i.e., pt may need goat driver; pt may take sedation once arrives at [facility]. St and monitored after tx for ability to drive ?? Email and telephone discussion with [facility] Rad/Onc Nurse, Rylee Garvey, who will assess thissituation with Salvador's treatment teams ?? Continue to treat per RTOG 1016 unless indicated otherwise at pre-treatment MD assessment tomorrow. ?? Follow up with Mr. Modi with post chemo call within 24 hrs of tx. Salud Amaro RN BSN CCRP RTOG Research Nurse documented in this encounter Plan of Treatment Upcoming Encounters Date Type Department Care Team (Late st Contact Info) Description 05/24/2025 11:00 AM EDT Office Visit Radiation Oncology at [address] [phone] Jesse Mcmahan MD [facility] [place] [address] documented as of this encounter Visit Diagnoses Not on filedocumented in this encounter Care Teams Patent Agent Relationship Specialty Start Date End Date Bj Alves MD [address] [place] [phone] PCP - General 06/25/10 04/02/23 documented as of this encounter
--- OUTSIDE RECORDS SUMMARY | 2024-08-01 15:31 | XMS_ITS | Encounter Summary ---
Author Organization [facility] [place] [address] Care Team Providers Care Business Development Representative Name Role Phone Bj Alves MD Primary Care Provider [phone] Encounter Details Date Type Department Care Team (Latest Contact Info) Description 01/16/2012 11:18 AM EDT - 01/16/2012 4:00 PM EDT Hospital Encounter [place] [address] RESOURCE, ANESTHESIA-[facility] Jose Enrique Jewell MD Discharge Disposition: Home Social History Tobacco Use [...] EDT Office Visit Radiation Oncology at [address] [phone] Jesse Mcmahan MD [facility] [place] [address] documented as of this encounter Procedures Procedure Name Priority Date/Time Associated Diagnosis Comments PET SCAN 01/16/2012 9:55 PM EDT Squamous cell cancer base of tongue POCT GLUCOSE Routine 01/16/2012 12:55 PM EDT documented in this encounter Results * POCT GLUCOSE LAB USE ONLY (01/16/2012 12:55 PM EDT) Glucose, POC 110 60 - 199 mg/dL [facility] Comment: Supplemental ranges: <110 mg/dL before meals <200 mg/dL all other times of the day Blood specimen (specimen) 01/16/2012 12:55 PM EDT 01/16/2012 12:55 PM EDT Jose Enrique Butcher MD POINT OF CARE TEST O RDERABLES [facility] documented in this encounter Visit Diagnoses Not on filedocumented in this encounter Active and Recently Administered Medications Care Teams Business Development Representative Relationship Specialty Start Date End Date Bj Alves MD [address] [place] [phone] PCP - General 06/25/10 04/02/23 documented as of this encounter
--- OUTSIDE RECORDS SUMMARY | 2024-08-01 15:31 | XMS_ITS | Encounter Summary ---
Author Organization [facility] [place] [address] Care Team Providers Care Field Technical Specialist Name Role Phone Ash Hernandez MD Primary Care Provider [phone] Reason for Visit * Reason Comments Simulation Head & Neck cancer Encounter Details Date Type Department Care Team (Late st Contact Info) Description 01/22/2012 2:00 PM EDT Follow-Up [place] [address] Jesse Mcmahan MD [facility] [place] [address] Head and neck cancer (Primary Dx) Discharge [...] Reading Time Taken Comments Blood Pressure 141/84 01/22/2012 1:57 PM EDT Pulse 69 01/22/2012 1:57 PM EDT Temperature 36.7 ??C (98.1 ??F) 01/22/2012 1:57 PM ED T Respiratory Rate 20 01/22/2012 1:57 PM EDT Oxygen Saturation 98% 01/22/2012 1:57 PM EDT Inhaled Oxygen Concentration - - Weight 105.2 kg (232 lb) 01/22/2012 1:57 PM EDT Height - - Body Mass Index 34.26 01/09/2012 7:27 AM EDT documented in this encounter Progress Notes * Jesse Mcmahan MD - 01/23/2012 9:49 AM EDT Radiation Oncology Follow Up Note Primary MD: ASH HERNANDEZ MD Referring MD: Rio Gann Other Involved Physicians: Butch Catalan MD Focused [...] Staging: ?? 12/09/11 CT H&N with contrast ([facility]): Mixed attenuation mass with lare low density areas suggesting necrotic change present deep to anterior aspect L SCM. Mass smoothly marginated, max 3.3 x 5.2 cm. ?? 11/27/11 PET-CT ([facility]): Despite premedication, severe [...] History: Sebastian Wyatt returns for follow up having last been at his initial consultation. In the interval since his last visit he has undergone a PET-CT. Currently he notes the following symptoms: Symptom Description Ongoing Intervention Odynophagia Mild pain with swallowing, tolerating most foods well Narcotic analgesia prn Dysphagia Denies Trismus Denies Otalgia/ Hearing changes Denies Xerostomia Denies Skin changes Denies Neck Symptoms Stable mass associated with L neck, not bothersome to him Dysgeusia Denies Weight Loss ~10 lbs over 3 weeks he denies new onset BARBOSA, n/v, unilateral changes in strength/sensation or cognitive changes. No Known Allergies Patient's Medications New Prescriptions No medications on file Previous Medications AMLODIPINE-ATORVASTATATIN (CADUET) 5-20 MG PER TABLET Take 1 tablet by mouth daily. ASCORBIC ACID (VITAMIN C) 500 MG TABLET Take 500 mg by mouth daily. AUGMENTED BETAMETHASONE DIPROPIONATE (DIPROLENE-AF) 0.05 % OINTMENT Apply topically 2 times daily. B COMPLEX-VITAMIN C-FOLIC ACID (NEPHROCAP) 1 MG CAPSULE Take 1 capsule by mouth daily. CHOLECALCIFEROL, VITAMIN D3, 400 UNIT TABLET Take 400 Units by mouth daily. CLONAZEPAM (KLONOPIN) 1 MG TABLET Take 1 mg by mouth 2 times daily as needed. DOXAZOSIN (CARDURA) 2 MG TABLET Take 2 mg by mouth nightly. FLUOXETINE (PROZAC) 20 MG CAPSULE Take by mouth daily. LEVOTHYROXINE (SYNTHROID) 137 MCG TABLET Take 137 mcg by mouth daily. METOPROLOL SUCCINATE (TOPROL-XL) 100 MG XL TABLET Take 50 mg by mouth daily. OMEPRAZOLE (PRILOSEC) 20 MG CAPSULE Take 20 mg by mouth daily. OXYCODONE (ROXICODONE) 5 MG/5 ML SOLUTION Take 5 mLs by mouth every 4 hours as needed for Pain. ROSUVASTATIN (CRESTOR) 10 MG TABLET Take 10 mg by mouth daily. VITAMIN E 400 UNIT CAPSULE Take 400 Units by mouth daily. Modified Medications No medications on file Discontinued Medications No medications on file Past Medical History Diagnosis Date ??? Acid reflux ??? Thyroid dysfunction ??? Arthritis ??? Psoriasis Past Surgical History Procedure Date ??? Carpal tunnel release rt ??? Laryngoscopy, dirct, op scope, biopsy 12/12/2011 LARYNGOSCOPY, MICROSCOPE, WITH BIOPSY performed by RIO GANN at [facility] MAIN OR ??? Laryngoscopy, dirct, op scop, exc tumr 12/12/2011 LARYNGOSCOPY, DIRECT, EXCISION OF TUMOR, CORD STRIPPING, MICRO performed by RIO GANN at [facility] MAIN OR ??? Scan doc: pet scan 01/16/2012 PET SCAN performed by LES REYNOLDS at [facility] [place] Physical Examination: Filed Vitals: 01/22/12 1357 BP: 141/84 Pulse: 69 Temp: 36.7 ??C (98.1 ??F) TempSrc: Oral Resp: 20 Weight: 105.235 kg (232 lb) SpO2: 98% Physical Exam Constitutional: He is well-developed, well-nourished, [...] reveals ~4 cm L level II LN.). Procedure: direct laryngoscopy Flexible laryngoscopy was performed. The right naris was anesthetized with aerosolized lidocaine, and the laryngoscope was passed without difficulty. The nasopharynx was visualized and was without masses or lesions. The oropharynx, larynx, and piriform sinuses were visualized. Redundant tissue present in the oropharynx. An area of erythema and fullness is noted in the L BOT. The vocal cords apposed without difficulty. Interval Imaging: images viewed, and I agree with the assessment as stated FINDINGS: Head/Neck: A 31 x 35 mm [...] Skeleton: No significant osseous abnormalities are identified. IMPRESSION IMPRESSION: 1. The primary site of malignancy [...] compared to the prior study of 11/27/11. Assessment: Sebastian Wyatt has received his PET-CT under sedation secondary to his severe claustrophobia, and we reviewed the results of his imaging. FOL and imaging demonstrated localized disease, and we discussed proceeding with simulation and radiotherapy. His case was reviewed at head and neck tumor board, and because of his anatomy concern was expressed about the utility of robotic surgery, and it was felt that he would best be served by definitive TRADE SHOW MANAGER. We discussed the rationale, logistics and efficacy of definitive chemoradiotherapy as well as robotic surgery f/b adjuvant radiotherapy. We again discussed the risks of therapy, including but not limited to short term sequelae (fatigue, skin erythema, mucositis, dysphagia, ageusia, xerostomia, weight loss) and meterman sequelae (skin fibrosis, meterman dysphagia potentially requiring a permanent feeding tube, xerostomia, osteoradionecrosis, esophageal stricture, and the low probability of significant damage to soft tissue, bone or skin requiring surgical or medical intervention). Mr. Wyatt expressed an understanding of these risks. The patient had a number of questions regarding optimal therapy and potential side effects. These questions were answered to their satisfaction. Plan: ?? Proceed with simulation today with IV contrast * Myra Pacheco RN - 01/22/2012 2:48 PM EDT Section of Radiation Oncology Contrast Information Safety Questions 1. Has the patient ever had an x-ray study before which involved injection of a contrast agent or x-ray dye? yes If yes, did the patient have any reaction to the injection? no If yes, please describe the reaction: na 2. Is the patient allergic to any foods, medicines, or other substances? yes No Known Allergies 3. Has the patient received any contrast within the past 48 hours? no 4. Does the patient have any procedures scheduled in the next 48 hours? no 5. Does the patient have a history of kidney disease or kidney problems? no 6. Does the patient have a history of asthma? no 7. Does the patient have a history of multiple myeloma? no 8. Does the patient have diabetes? no 9. Is the patient currently taking or have they ever taken glucophage or metformin? no If yes, when was last dose taken? na 10. Has the patient had a creatinine level drawn within the past 30 day? yes Lab Results Component Value Date CREATININE 0.91 01/22/2012 If no, when will it be drawn? Na 11. If patient is on glucophage or metformin, have they been instructed to stop it for the next [address] simulation and have repeat creatinine drawn prior to restarting? [x} No Was creatinine ordered? Where will creatinine be drawn? na Radiation Oncology CT IV Contrast Simulation Nursing Note Diagnosis: Head and Neck Cancer IV Access: Right forearm place by IV Team/Vascular Access Team Gauge: 20 gauge Blood Return: Yes CT Simulation of: Objective: Pre-contrast qustionnaire completed prior to IV insertion Simulation merchandise flow team member assessed IV line patency prior to IV contrast dye MD and RN present for contrast injection and 5 minutes after: yes Volume of Contrast injected: 100ml of Omnipaque Volume of Contrast wasted: none Procedure done in Radiation Oncology 2K CT Simulator Room. Reaction: none: No adverse reaction / Patient tolerated procedure well Signs and symptoms or infiltration/extravastion: None IV discontinued: Yes Comments: Patient is aware to drink 2 liters of water in the next 48 hours post IV contrast. documented in this encounter Plan of Treatment Upcoming Encounters Date Type Department Care Team (Late st Contact Info) Description 05/24/2025 11:00 AM EDT Office Visit Radiation Oncology at [address] [phone] Jesse Mcmahan MD [facility] [place] [address] documented as of this encounter Visit Diagnoses Diagnosis Head and neck cancer- Primary Malignant neoplasm of head, face, and neck documented in this encounter Care Teams Field Technical Specialist Relationship Specialty Start Date End Date Ash Hernandez MD [address] [place] [phone] PCP - General 06/25/10 04/02/23 documented as of this encounter
--- OUTSIDE RECORDS SUMMARY | 2024-08-01 15:31 | XMS_ITS | Encounter Summary ---
Author Organization [facility] [place] [address] Care Team Providers Care Customer Services Coordinator Name Role Phone Bj Alves MD Primary Care Provider [phone] Encounter Details Date Type Department Care Team (Late Contact Info) Description 01/22/2012 3:00 PM EDT Follow-Up [place] [address] Social History Tobacco Use Types Packs/Day Years [...] EDT Office Visit Radiation Oncology at [address] [phone] [facility] [place] [address] documented as of this encounter Visit Diagnoses Not on filedocumented in this encounter Care Teams Customer Services Coordinator Relationship Specialty Start Date End Date Bj Alves MD [address] [place] [phone] PCP - General 06/25/10 04/02/23 documented as of this encounter
--- OUTSIDE RECORDS SUMMARY | 2024-08-01 15:31 | XMS_ITS | Encounter Summary ---
Author Organization [facility] [address] Care Team Providers Care Operating Room Nurse Name Role Phone Bj Alves MD Primary Care Provider [phone] Encounter Details Date Type Department Care Team (Late st Contact Info) Description 02/12/2012 Notes [place] [phone] Salud Amaro, RN Social History Tobacco Use [...] encounter Progress Notes * Salud Amaro - 02/18/2012 7:19 PM EDT RESEARCH NURSE NOTE RTOG 1016 Phase III Trial of Radiotherapy Plus Cetuximab VERSUS Chemoradiotherapy In HPV-Associated Oropharynx Cancer Date: 02/12/2012 PT ID: [id number] Case #: [id number] Purpose of Visit: Randomization/ Pre Treatment Assessment Mr. 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 Mr. Modi previously consented to participate in RTOG 1016 and is being seen atthe [place], [place] for randomization to protocol. Mr. Modi is accompanied today by his , Laura, and their young daughter. Further review of the protocol was done, including risks, side effects, length of time in study, etc. Mr. Modi desired to continue to Step 2 treatment randomization and was subsequently randomized to ARM 2: RT with Cetuximab. Subjective: I feel really really good I don't have any trouble swallowing or anything. I'm very anxious to get my treatment started Since I was younger, I have occasional ringing in my ears.It comes and goes and doesn't last but afew seconds. Objective: Mr Wyatt is awake, alert, cooperative, appears comfortable without pain and in no distress. Baseline Toxicity Assessment EVENT CTCAE GRADE ATTRIBUTION TO TREATMENT Onset >/= Grade 3 Resolution < Grade 3 Tinnitus 1 Mr Modi appears ready and anxious to begin treatment. Education: I met with Dr. Underwood, the study participants treating Medical Oncologist and his treatment team torraviiew and verify Mr Modi's treatment plan. All questions were answered to their satisfaction. A copy of the full protocol is the patient's treatment chart . Plan: ?? Mr Wyatt is scheduled to receive Day 1 Cetuximab Loading Dose @ 400 mg/m2 on 02/17/2012. ?? Mr and Mrs Modi know to contact me with any questions regarding participation in RTOG 1016 ?? Mr and Mrs Modi know to contact their treatment team at [facility], [place], [place] with medical questions/concerns CHEMO CHECK: Cetuximab Loading Dose 400mg/m2 IV Pt BSA 2.25 Ordered dose: 900 mg IV I verified that the dose ordered is consistent with treatment plan per RTOG 1016 ARM 2. Cetuximab Drug orders and Dose Calculation Double-checked with Dr. Underwood, Flaquita Sterling RN and Heather Momin, Pharmacist. Salud Amaro RN BSN CCRP RTOG Research Nurse documented in this encounter Plan of Treatment Upcoming Encounters Date Type Department Care Team (Late st Contact Info) Description 05/24/2025 11:00 AM EDT Office Visit Radiation Oncology at [address] [phone] Jesse Mcmahan MD [facility] [place] [address] documented as of this encounter Visit Diagnoses Not on filedocumented in this encounter Care Teams Operating Room Nurse Relationship Specialty Start Date End Date Bj Alves MD [address] [place] [phone] PCP - General 06/25/10 04/02/23 documented as of this encounter
--- OUTSIDE RECORDS SUMMARY | 2024-08-01 15:31 | XMS_ITS | Encounter Summary ---
Author Organization [facility] [place] [address] Care Team Providers Care Quality Assurance Assistant Name Role Phone Bj Alves MD Primary Care Provider [phone] Encounter Details Date Type Department Care Team (Late st Contact Info) Description 01/16/2012 1:29 PM [place] [phone] Jose Enrique Butcher MD Huntington, Jeremy, MD [facility] [place] [address] Anesthesia Record Procedure Summary Procedure Name Responsible Anesthesiologist Anesthesia Start Time Anesthesia Stop Time PET SCAN Jose Enriqeu Butcher MD 01/16/12 1329 2 1444 Events Date Time Event Comment 01/16/2012 1329 Start 1444 Stop Meds * Agents No agents on file. * Blood No blood administrations on file. Lines, Drains, and Airways Type Details Placement Removal (RETIRED) Port A Cath 01/09/12; Chest 01/09/12 0 000 by Zaira Sheikh APRN (RETIRED) Power Port 01/09/12; 1035; Chest; Right; 8F LP Dign[address] CT Port lot# [id number] 01/09/12 1035 by Marion Huerta RN Incision [...] OR Notes * Anesthesia Postprocedure Evaluation - Gregory Aly CRNA - 01/16/2012 2:58 PM EDT Patient: Sebastian Wyatt Procedure(s) Performed: Procedure(s): PET SCAN Patient location: PACU Post-op pain: Adequate analgesia Post-op nausea: no nausea or vomiting Last Vitals: Filed Vitals: 01/16/12 1440 BP: 134/70 Pulse: 60 Temp: 36.8 ??C (98.2 ??F) Resp: 18 Post-op cardiovascular and respiratory status: is stable Level of consciousness: awake, alert and oriented Complications: no apparent complications and tolerated the procedure well Fluid Status: normal * Anesthesia Preprocedure Evaluation - Dontrell Malik - 01/15/2012 9:19 PM EDT Images from the original note were not included. Anesthesia Evaluation Hx of anesthetic complications (h/o difficult airway 12/12/11 with Gr 4 view with MAC. required bougie use.) Airway Mallampati: III TM distance: >3 FB Neck ROM: full Comment: Thick neck. Dental - normal exam Pulmonary - normal exam breath sounds clear to auscultation (+) shortness of breath, sleep apnea CPAP, ROS comment: Former cigars-quit August 2011 Cardiovascular Exercise tolerance: good (+) hypertension well controlled, ROS comment: Hyperlipidemia Neuro/Psych (+) neuromuscular disease (left ulnar neuropathy from a previous trauma), psychiatric history (Anxiety and claustrophobia.) GI/Hepatic/Renal (+) GERD well controlled, (-) liver disease and renal disease Endo/Other (+) hypothyroidism (on synthroid), (-) Type I DM and Type II DM Comments: H/O Glucose intolerance. H/O Psoriasis (possible psoriatic arthritis). Thalassemia minor. NKDA H/H 13.6/41.3 Abdominal Anesthesia Plan ASA 3 MAC with intravenous induction 56 yo former smoker with base of tongue tumor here for PET scan. Patient was difficult laryngoscopyfor recent biopsy in OR 12/12/11 resulting in chipped front left tooth. Good mask airway with oral airway in place. Discussed implications of difficult airway with patient. Plan MAC with GA back up, adjunct airway equipment to be available. Questions were sought and answered Anesthetic plan and risks discussed with patient. Plan discussed with resident and attending. documented in this encounter Miscellaneous Notes * Addendum Note - Tonya Cheung - 01/19/2012 1:59 PM EDT Addendum created 01/19/12 1359 by Tonya Cheung Modules edited:Anesthesia Events, Anesthesia Responsible Staff documented in this encounter Plan of Treatment Upcoming Encounters Date Type Department Care Team (Late st Contact Info) Description 05/24/2025 11:00 AM EDT Office Visit Radiation Oncology at [address] [phone] Jesse Mcmahan MD [facility] [place] [address] documented as of this encounter Visit Diagnoses Not on filedocumented in this encounter Care Teams Quality Assurance Assistant Relationship Specialty Start Date End Date Bj Alves MD [address] [place] [phone] PCP - General 06/25/10 04/02/23 documented as of this encounter
--- OUTSIDE RECORDS SUMMARY | 2024-08-01 15:32 | XMS_ITS | Encounter Summary ---
Author Organization [facility] Address [address] [place] [address] Care Team Providers Care Investigation Specialist Name Role Phone Bj Alves MD Primary Care Provider [phone] Encounter Details Date Type Department Care Team ([facility] Contact Info) Description 03/29/2020 Orders Only [facility] Rheumatology [address] [place] [phone] Lise Jean Baptiste RN Psoriatic arthritis ([facility]) (Primary Dx) Social History Tobacco Use Types Packs/Day Years Used Date Smoking Tobacco: Former Smokeless Tobacco: Never Interpersonal Safety Answer Date Record ed Physically Hurt Never 03/04/2020 Verbally Threaten Not on file 03/04/2020 Sex and Gender Information Value Date Recorded Sex Assigned at Not on file Legal Sex Male 17:43 EST Gender Identity Male 03/26/2020 15:17 EDT Sexual Orientation Not on file COVID-19 Exposure Response Date Recorded In the last month, have you been in contact with someone who was confirmed or suspected to have Coronavirus / COVID-19? No / Unsure 03/29/2020 9:25 EDT documented as of this encounter Plan of Treatment Not on file documented as of this encounter Visit Diagnoses Diagnosis Psoriatic arthritis ([facility])- Primary Psoriatic arthropathy documented in this encounter Care Teams Investigation Specialist Relationship Specialty Start Date End Date Bj Alves MD [address] [place], [place] [phone] PCP - General 02/28/09 documented as of this encounter
--- OUTSIDE RECORDS SUMMARY | 2024-08-01 15:32 | XMS_ITS | Encounter Summary ---
Author Organization [facility] [place] [address] Care Team Providers Care Brass Plater Name Role Phone Bj Alves MD Primary Care Provider [phone] Encounter Details Date Type Department Care Team (Late st Contact Info) Description 11/14/2011 Orders [place] [phone] Sherrie William RN Metastatic squamous cell carcinoma (Primary Dx) Social History Tobacco Use Types Packs/Day Years Used Date Smoking Tobacco: Never Assessed Sex and Gender Information Value Date Recorded Sex Assigned at Not on file Gender Identity Not on file Sexual Orientation Not on file documented as of this encounter Plan of Treatment Upcoming Encounters Date Type Department Care Team (Late st Contact Info) Description 05/24/2025 11:00 AM EDT Office Visit Radiation Oncology at [address] [phone] eJsse Mcmahan MD [facility] [place] [address] documented as of this encounter Results * PET-CT skull base to mid thigh (11/27/2011 12:24 PM EDT) Anatomical Region Laterality Modality Other 11/27/2011 12:2 4 PM EDT Narrative 11/27/2011 12:25 PM EDT Examination PET/CT SCAN Procedure:Following IV injection of 82-qrgnjv-3-deoxyglucose (FDG) and a standard uptake period, a non-contrast CT scan followed by a PET scan were acquired were performed. Despite premedication, severe claustrophobia allowed this can only to be performed from the lower chest to the mid thighs. The CT portion of the examination was performed from the top of the head to the mid thighs. The non-contrast CT was used for anatomic localization and photon attenuation correction of the PET scan. Blood Glucose Level (mg/dL):105 FDG Dose:16.8 mCi (0.15 mCi/kg to maximum of 18 mCi). Pre-treatment: Alprazolam 0.5 mg PO. Clinical History Metastatic SCCa left neck, Left neck mass Comparison None Findings Head/Neck:No FDG PET scan of the head or neck were performed. The non contrast CT does demonstrate an enlarged and necrotic left-sided level 2 lymph node. ??There is soft tissue prominence of the left tonsillar pillar. Chest: Only the lung bases were scanned. ??No abnormal FDG activity was seen. Abdomen/Pelvis: No abnormal FDG activity is seen. There is a 3.8 cm infrarenal abdominal aortic aneurysm. Skeleton/Extremities: No abnormal FDG activity is seen. Impression This study is of limited diagnostic value. Due to claustrophobia no scanning of the head, neck or upper chest was performed. No distant metastases are identified in this study. Thank you for referring this patient to the [facility] PET Center Procedure Note Abhi Gao MD - 11/27/2011 Examination PET/CT SCAN Procedure:Following IV injection of 93-rkzxda-8-deoxyglucose (FDG) and a standard uptake period, a non-contrast CT scan followed by a PET scan were acquired were performed. Despite premedication, severe claustrophobia allowed this can only to be performed from the lower chest to the mid thighs. The CT portion of the examination was performed from the top of the head to the mid thighs. The non-contrast CT was used for anatomic localization and photon attenuation correction of the PET scan. Blood Glucose Level (mg/dL):105 FDG Dose:16.8 mCi (0.15 mCi/kg to maximum of 18 mCi). Pre-treatment: Alprazolam 0.5 mg PO. Clinical History Metastatic SCCa left neck, Left neck mass Comparison None Findings Head/Neck:No FDG PET scan of the head or neck were performed. The non contrast CT does demonstrate an enlarged and necrotic left-sidedlevel 2 lymph node. There is soft tissue prominence of the left tonsillarpillar. Chest: Only the lung bases were scanned. No abnormal FDG activity wasseen. Abdomen/Pelvis: No abnormal FDG activity is seen. There is a 3.8 cm infrarenal abdominal aortic aneurysm. Skeleton/Extremities: No abnormal FDG activity is seen. Impression This study is of limited diagnostic value. Due to claustrophobia noscanning of the head, neck or upper chest was performed. No distant metastases are identified in this study. Thank you for referring this patient to the [facility] PET Center Rio Graves MD IMG PET ORDERABLES documented in this encounter Visit Diagnoses Diagnosis Metastatic squamous cell carcinoma- Primary Other malignant neoplasm without specification of site Metastatic squamous cell carcinoma Other malignant neoplasm without specification of site documented in this encounter Care Teams Brass Plater Relationship Specialty Start Date End Date Bj Alves MD [address] [place] [phone] PCP - General 06/25/10 04/02/23 documented as of this encounter
--- OUTSIDE RECORDS SUMMARY | 2024-08-01 15:32 | XMS_ITS | Encounter Summary ---
Author Organization [facility] [place] [address] Care Team Providers Care Customer Service Assistant Name Role Phone Ash Hernandez MD Primary Care Provider [phone] Encounter Details Date Type Department Care Team (Latest Contact Info) Description 01/09/2012 7:12 AM EDT - 01/09/2012 12:50 PM EDT Hospital Encounter [place] [address] Maxi Saavedra MD [facility] [place] [address] Tonsillar cancer Discharge Disposition: Home Social History Tobacco [...] This can be done with your PCP. Tarlton suture is to be cut flush with [...] Peroxide. 5) Call the Interventional Radiology Department ([phone]) for pain, redness or drainage aroundthe feeding [...] improve, . Stagin12/09/11 CT H&N with contrast (NCH): Mixed attenuation mass with lare low density areas suggesting necrotic change present deep to anterior aspect L SCM. Mass smoothly marginated, max 3.3 x 5.2 cm. 11/27/11 PET-CT ([facility] [...] chest port (Dignity CT POWER PORT) ACC#: [id number] Indication: Tongue base cancer, needs access for [...] EDT Office Visit Radiation Oncology at [address] [phone] Jesse Mcmahan MD [facility] [place] [address] documented as of this encounter Procedures Procedure [...] port (Dignity CT POWER PORT) ?? ACC#: [id number] ?? Indication: Tongue base cancer, needs access [...] chest port (Dignity CT POWER PORT) ACC#: [id number] Indication: Tongue base cancer, needs access for [...] EDT Maxi Saavedra MD HEMATOLOGY ORDERABLE S CERNER MILLENNIUM * NUCLEATED RED BLOOD CELLS (01/09/2012 8:20 AM EDT) NRBC% auto 0.0 0.0 - 0.2 % CERNER MILLENNIUM NRBC Absolute 0.000 0.000 - 0.012 x10(3)/mcL CERNER MILLENNIUM Blood specimen (specimen) 01/09/2012 8:20 AM EDT 01/09/2012 8:33 AM EDT Narrative Resulting Agency Comment Spec In Lab Maxi Saavedra MD HEMATOLOGY ORDERABLE S Performing Organization Address [facility]/ZIP Co de Phone Number CERNER MILLENNIUM * SCAN, PERIPHERAL BLOOD (01/09/2012 8:20 AM EDT) Plat estimate Normal CERNER MILLENNIUM RBC Morphology Abnormal CERNE R MILLENNIUM Microcyte 1-5 /HPF CERNER MILLENNIUM Ovalocytes 1-5 /HPF CERNER MILLENNIUM Blood specimen (specimen) 01/09/2012 8:20 AM EDT 01/09/2012 8:33 AM EDT Narrative Resulting Agency Comment Spec In Lab Maxi Saavedra MD HEMATOLOGY ORDERABLE S CERNER MILLENNIUM * Prothrombin Time (01/09/2012 8:20 AM EDT) Prothrombin Time 13.7 11.9 - 14.7 sec CERNER MILLENNIUM Comment: [facility] Transfusion Committee Guidelines: INR less than [...] VALDEZENNIUM documented in this encounter Visit Diagnoses Diagnosis Tonsillar cancer Malignant neoplasm of tonsil documented in this encounter Administered Medications Inactive [...] RN) documented in this encounter Care Teams Customer Service Assistant Relationship Specialty Start Date End Date Ash Hernandez MD [address] [place] [phone] PCP - General 06/25/10 04/02/23 documented as of this encounter
--- OUTSIDE RECORDS SUMMARY | 2024-08-01 15:32 | XMS_ITS | Encounter Summary ---
Author Organization [facility] [place] [address] Care Team Providers Care Shoe Stock Associate Name Role Phone Bj Alves MD Primary Care Provider [phone] Encounter Details Date Type Department Care Team (Late Contact Info) Description 01/02/2012 Orders Only Hematology [place] [address] Leslie Guzman APRN Tonsillar cancer (Primary Dx) Social History Tobacco Use [...] EDT Office Visit Radiation Oncology at [address] [phone] Jesse Mcmahan MD [facility] [place] [address] documented as of this encounter Results * IR all GI procedures (01/09/2012 11:20 AM EDT) Anatomical Region Laterality Modality Abdomen X-Ray Angiograph y 01/09/2012 11:2 0 AM EDT Narrative 01/11/2012 2:53 PM EDT ?VIR ?? PROCEDURE NOTE: Percutaneous gastrostomy tube ?? placement. ? ACC#: ?? [id number] ?Indication ?? for Procedure: Oral cancer, requires [...] or H20 after every use. ?Fellow: ?? Bj Federico, DO ? Attending: ?? Maxi Saavedra MD ?I, ?? Dr. Saavedra, was present throughout the procedure. ? ; ?? {CR} ? ; ?? {CR} ? ; ?? {CR} ? ; ?? {CR} ? ; ?? {CR} ? Film and interpretation reviewed by the attending Procedure Note Maxi Saavedra MD - 01/11/2012 VIR PROCEDURE NOTE: Percutaneous gastrostomy tube placement. ACC#: [id number] Indication for Procedure: Oral cancer, requiresenteric catheter [...] Fr. A 12 Frlocking pigtail gastrostomy tube (WhatleyHugh) was placed advanced over thewire. Loop was [...] saline or H20 after every use. Fellow: Bj Caballero DO Attending: Maxi Saavedra MD I, Dr. Saavedra, was present throughoutthe procedure. ; {CR} ; {CR} ; {CR} ; {CR} ; {CR} Film and interpretation reviewed by the attending Jesse Mcmahan MD IMG IR ORDERABLES * IR mediport placement or removal (01/09/2012 10:13 AM EDT) Anatomical Region Laterality Modality X-Ray Angiograph y 01/09/2012 10:1 3 AM EDT Impressions 01/11/2012 2:53 PM EDT IMPRESSION: US and fluoro guided placement single lumen right IJ Dignity CT POWER port, catheter tip in cavoatrial junction. Port ready for use. ?? Procedure performed by Sydnee Cuellar PA-C ?? Attending: Dr. Saavedra Narrative 01/11/2012 2:53 PM EDT VIR PROCEDURE NOTE: ?? Procedure: Placement of right IJ single lumen chest port (Dignity CT POWER PORT) ?? ACC#: [id number] ?? Indication: Tongue base cancer, needs access [...] chest port (Dignity CT POWER PORT) ACC#: [id number] Indication: Tongue base cancer, needs access for [...] Saavedra Jesse Mcmahan MD IMG IR ORDERABLES documented in this encounter Visit Diagnoses Diagnosis Tonsillar cancer- Primary Malignant neoplasm of tonsil Tonsillar cancer Malignant neoplasm of tonsil Tonsillar cancer Malignant neoplasm of tonsil documented in this encounter Care Teams Shoe Stock Associate Relationship Specialty Start Date End Date Bj Alves MD [address] [place] [phone] PCP - General 06/25/10 04/02/23 documented as of this encounter
--- OUTSIDE RECORDS SUMMARY | 2024-08-01 15:32 | XMS_ITS ---
[place] [address] Care Team Providers Care Electron Beam Welding Machine Operator Name Role Phone Melvin Alarcon MD Primary Care Provider [phone] Rheumatology Status:Ineligible (Enrolling) Start date:12/25/2023 Enrollment reason:Ineligible - Insurance Mandate Current support & services provided:Prior Authorization Management Linked medications:ixekizumab (Active) Linked problems:Psoriasis with arthropathy (Active) Continued Care and Services Coordination
--- OUTSIDE RECORDS SUMMARY | 2024-08-01 15:32 | XMS_ITS | Encounter Summary ---
Author Organization [facility] [place] [address] Care Team Providers Care Shipping Agent Name Role Phone Bj Alves MD Primary Care Provider [phone] Encounter Details Date Type Department Care Team (Late st Contact Info) Description 12/12/2011 2:07 PM EDT Anesthesia Event [place] [phone] Butch Arcos MD Mancuso, Aaron, MD [facility] [place] [address] Anesthesia Record Procedure Summary Procedure Name Responsible Anesthesiologist Anesthesia Start Time Anesthesia Stop Time LARYNGOSCOPY, MICROSCOPE, WITH BIOPSY (WRVU 3.55) (Throat) Butch Arcos MD 12/12/11 1407 12/12/11 1535 Events Date Time Event Comment 12/12/2011 1357 1407 Start 1535 Stop Meds * Agents No agents on file. * Blood No blood administrations on file. Lines, Drains, and Airways Type Details Placement Removal Incision 12/12/11; other (see comments) (oropharynx - biopsies); 03/31/22 (LDA cleanup utility RA#[id number]); 1715 (LDA cleanup utility RA#[id number]) 12/12/11 0000 by Tara Cabrera RN 03/31/22 1715 by Sathish Burkett (RETIRED) Peripheral IV Line - Single Lumen 12/12/11 (placed by Karena Garcia RN); 1332; 12/12/11; 1710 12/12/11 1332 by Leslie Kirby RN 12/12/11 1710 by Amber Pascual RN documented in this encounter Social History Tobacco Use Types Packs/Day Years Used Date Smoking Tobacco: Former Cigarettes 1 38 0 08/06/1973 - 08/06/2011 Alcohol Use Standard Drinks/Week Comments Yes 0 (1 standard drink = 0.6 oz pure alcohol) rarely one glass of wine occasionally Sex and Gender Information Value Date Recorded Sex Assigned at Not on file Gender Identity Not on file Sexual Orientation Not on file documented as of this encounter OR Notes * Anesthesia Postprocedure Evaluation - Marisela Rubin J - 12/12/2011 3:38 PM EDT Patient: Sebastian Wyatt Procedure(s) Performed: Procedure(s): LARYNGOSCOPY, MICROSCOPE, WITH BIOPSY LARYNGOSCOPY, DIRECT, EXCISION OF TUMOR, CORD STRIPPING, MICRO Patient location: PACU Post-op pain: Adequate analgesia Post-op nausea: no nausea or vomiting Last Vitals: Filed Vitals: 12/12/11 1534 BP: 156/93 Pulse: 89 Temp: 36.8 ??C (98.2 ??F) Resp: 16 Post-op cardiovascular and respiratory status: is stable Level of consciousness: awake, alert and oriented Complications: no apparent complications, tolerated the procedure well and no evidence of recall Fluid Status: normal * Anesthesia Preprocedure Evaluation - Butch Arcos MD - 12/11/2011 11:28 PM EDT Anesthesia Evaluation No hx of anesthetic complications [...] arthritis). Thalassemia minor.Abdominal Anesthesia Plan ASA 3 General with intravenous induction Anesthetic plan and risks discussed with patient. Plan discussed with resident. documented in this encounter Miscellaneous Notes * Addendum Note - Butch Arcos MD - 12/22/2011 4:09 PM EDT * Addendum Note - Butch Arcos MD - 12/22/2011 4:09 PM EDT * Addendum Note - Ethel Huynh - 12/15/2011 12:12 PM EDT Addendum created 12/15/11 1212 by Ethel Huynh Modules edited:Anesthesia Events, Anesthesia Responsible Staff documented in this encounter Plan of Treatment Upcoming Encounters Date Type Department Care Team (Late st Contact Info) Description 05/24/2025 11:00 AM EDT Office Visit Radiation Oncology at [address] [phone] Jesse Mcmahan MD [facility] [place] [address] documented as of this encounter Visit Diagnoses Not on filedocumented in this encounter Care Teams Shipping Agent Relationship Specialty Start Date End Date Bj Alves MD [address] [place] [phone] PCP - General 06/25/10 04/02/23 documented as of this encounter
--- OUTSIDE RECORDS SUMMARY | 2024-08-01 15:32 | XMS_ITS | Encounter Summary ---
[place] [address] Care Team Providers Care Kitchen Cleaner Name Role Phone Bj Alves MD Primary Care Provider [phone] Encounter Details Date Type Department Care Team (Latest Contact Info) Description 11/27/2011 9:41 AM EDT - 11/27/2011 11:59 PM EDT Hospital Encounter [place] [phone] Metastatic squamous cell carcinoma Social History Tobacco Use Types Packs/Day Years [...] Sig Dispensed Refills Start Date End Date metoprolol succinate (TOPROL-XL) 100 mg XL tablet [...] daily. 06/04/2012 documented as of this encounter Plan of Treatment Upcoming Encounters Date Type Department Care Team (Late st Contact Info) Description 05/24/2025 11:00 AM EDT Office Visit Radiation Oncology at [address] [phone] Jesse Mcmahan MD [facility] [place] [address] documented as of this encounter Procedures Procedure Name Priority Date/Time Associated Diagnosis Comments NM PET CT SKULL BASE TO MID-THIGH ([facility]) Routine 11/27/2011 12:24 PM EDT Metastatic squamous cell carcinoma POCT GLUCOSE Routine 11/27/2011 9:59 AM EDT documented in this encounter Results * PET-CT skull base to mid thigh (11/27/2011 12:24 PM EDT) Anatomical Region Laterality Modality Other 11/27/2011 12:2 4 PM EDT Narrative 11/27/2011 12:25 PM EDT Examination PET/CT SCAN Procedure:Following IV injection of 97-scaour-0-deoxyglucose (FDG) and a standard uptake period, a [...] you for referring this patient to the [facility] PET Center Procedure Note Abhi Gao MD - 11/27/2011 Examination PET/CT SCAN Procedure:Following IV injection of 83-joayjm-9-deoxyglucose (FDG) and a standard uptake period, a [...] you for referring this patient to the [facility] PET Center Rio Graves MD [facility] PET ORDERABLES * POCT GLUCOSE LAB USE ONLY (11/27/2011 9:59 AM EDT) [facility] Glucose, POC 105 60 - 199 mg/dL [facility] Comment: Supplemental ranges: <110 mg/dL before meals <200 mg/dL all other times of the day Blood specimen (specimen) 11/27/2011 9:59 AM EDT 11/27/2011 9:59 AM EDT Rio Graves MD POINT OF CARE TEST ORDERABLES Performing Organization Address City/State/[facility] Co il Phone Number [facility] documented in this encounter Visit Diagnoses Diagnosis Metastatic squamous cell carcinoma Other malignant neoplasm without specification of site documented in this encounter Administered Medications Inactive Administered Medications - up to 3 most recent administrations Medication Order MAR Action Action Date Dose Rate Site ALPRAZolam (XANAX) tablet 0.5 mg 0.5 mg, Oral, ONCE, 1 dose, On Evelina 11/27/11 at 0900, Routine Given 11/27/2011 9:00 AM EDT 0.5 mg documented in this encounter Care Teams Kitchen Cleaner Relationship Specialty Start Date End Date Bj Alves MD [address] [place] [phone] PCP - General 06/25/10 04/02/23 documented as of this encounter
--- OUTSIDE RECORDS SUMMARY | 2024-08-01 15:32 | XMS_ITS | Encounter Summary ---
Author Organization [facility] [place] [address] Care Team Providers Care Pharmacy Customer Care Specialist Name Role Phone Bj Alves MD Primary Care Provider [phone] Encounter Details Date Type Department Care Team (Latest Contact Info) Description 12/18/2011 Multidisciplinary Ca re Committee [place] [address] Mian Nichole MD [facility] [place] [address] Social History Tobacco Use Types Packs/Day Years [...] as of this encounter Progress Notes * Mian Nichole MD - 12/17/2011 8:44 AM EDT Head and Neck Tumor Board Note Presenter: Peter Graves MD DATE OF PRESENTATION: 12.25.11 Tumor site: SCCa BOT History Substance Use Topics ??? Smoking status: Former Smoker -- 1.0 packs/day for 38 years Quit date: 08/06/2011 ??? Smokeless tobacco: Not on file ??? Alcohol Use: Yes rarely one glass of wine occasionally Synopsis: Presented with sore throat in November 2011 which resolved followed by a level II node. FNA was performed +SCCa. Further workup localizes the primary at the left BOT. Stage T1/2N1 SCCa BOT EXAM: Left tonsil tumor extending in the left base fo tongue with level 2 node. FNL confirms this with presence of vallecular cyst. Endoscopy/biopsies: Difficult exposure. Ulcerative area in left BOT, about 2 cm in size. Pathology + for SCCa in BOT. Tonsil bx negative. CT scan: Primary difficult to see but there is left BOT asymmetry. Also chance disease in levels 2 and 3. MRI would help in defining borders of tumor in base of tongue. Comorbidities: Patient Active Problem List Diagnoses Code ??? Tonsil cancer 146.0AD ??? Obesity 278.00M ??? Hyperlipidemia 272.4S ??? Hypertension 401.9AJ ??? Glucose intolerance (impaired glucose tolerance) 790.22U ??? Cigarette smoker 305.1AX ??? Hypothyroidism 244.9AP ??? GERD (gastroesophageal reflux disease) 530.81S ??? Psoriasis 696.1U ??? Sleep apnea 780.57C ??? Anxiety 300.00E ??? Back pain, chronic 724.5BE ??? Thalassemia minor 282.49BP Recommendations: Could undergo trial of TORS with neck dissection however with difficult exposure. Could have mandibular swing approach. Alternative is chemoradiation therapy. Clinical trial availability: documented in this encounter Plan of Treatment Upcoming Encounters Date Type Department Care Team (Late st Contact Info) Description 05/24/2025 11:00 AM EDT Office Visit Radiation Oncology at [address] [phone] Jesse Mcmahan MD [facility] [place] [place] [address] documented as of this encounter Visit Diagnoses Not on filedocumented in this encounter Care Teams Pharmacy Customer Care Specialist Relationship Specialty Start Date End Date Bj Alves MD [address] [place] [phone] PCP - General 06/25/10 04/02/23 documented as of this encounter
--- OUTSIDE RECORDS SUMMARY | 2024-08-01 15:32 | XMS_ITS | Encounter Summary ---
Author Organization [facility] Address [address] [place] [address] Care Team Providers Care Threading Machine Feeder Automatic Name Role Phone Bj Alves MD Primary Care Provider [phone] Reason for Visit * Reason Comments Other Encounter Details Date Type Department Care Team ([facility] st Contact Info) Description 05/23/2021 Refill [facility] [place] [address] [place] [address] [phone] Tanner Frost MD [facility] Rheumatology [address] [place] [address] [place] [address] Other Social History Tobacco Use Types Packs/Day Years Used Date Smoking Tobacco: Former Smokeless Tobacco: Never Interpersonal Safety Answer Date Record ed Physically Hurt Never 03/04/2020 Verbally Threaten Not on file 03/04/2020 Sex and Gender Information Value Date Recorded Sex Assigned at Not on file Legal Sex Male 17:43 EST Gender Identity Male 03/26/2020 15:17 EDT Sexual Orientation Not on file documented as of this encounter Miscellaneous Notes * Telephone Encounter - Kaia Chacon RN - 05/23/2021 0816 EDT Patient not following up here. Rx refill refused. documented in this encounter Plan of Treatment Not on file documented as of this encounter Visit Diagnoses Not on filedocumented in this encounter Care Teams Threading Machine Feeder Automatic Relationship Specialty Start Date End Date Bj Alves MD NPI: [id number] [place] [address] PCP - General 02/28/09 documented as of this encounter
--- OUTSIDE RECORDS SUMMARY | 2024-08-01 15:32 | XMS_ITS | Encounter Summary ---
Author Organization [facility] Address [address] [place] [address] Care Team Providers Care Typesetting Supervisor Name Role Phone Bj Alves MD Primary Care Provider Encounter Details Date Type Department Care Team (Late st Contact Info) Description 04/08/2022 Lab Requisition [facility] Pathology & Laboratory Medicine - [facility] [address] [place], [place] [id number] Outr Resulting Lab, Provider Social History Tobacco Use Types Packs/Day Years [...] on file documented as of this encounter Procedures Procedure Name Priority Date/Time Associated Diagnosis Comments T3 FREE Routine 04/08/2022 15:05 EDT documented in this encounter Results * T3 FREE (04/08/2022 15:05 EDT) T3, Free 3.0 2.8 - 5.3 pg/mL 04/08/2022 22:50 EDT [facility] Blood VENOUS BLOOD / Unknown 04/08/2022 15:05 EDT 04/08/2022 21:36 EDT us Provider Outr Resulting Lab CHEMISTRY & BLOOD GA S ORDERABLES Final Result [facility] [address] [place] [address] documented in this encounter Visit Diagnoses Not on filedocumented in this encounter Care Teams Typesetting Supervisor Relationship Specialty Start Date End Date Bj Alves MD [address] [place] [address] PCP - General 02/28/09 documented as of this encounter
--- OUTSIDE RECORDS SUMMARY | 2024-08-01 15:32 | XMS_ITS | Encounter Summary ---
Author Organization [facility] [place] [address] Care Team Providers Care Shift Engineer Name Role Phone Bj Alves MD Primary Care Provider [phone] Encounter Details Date Type Department Care Team (Late st Contact Info) Description 01/02/2012 Telephone Hematology [place] [phone] Leslie Hall, HERBERT Social History Tobacco Use Types Packs/Day [...] encounter Miscellaneous Notes * Telephone Encounter - Leslie Hall APRN - 01/02/2012 3:26 PM EDT Message copied by LESLIE HALL on ThuJan 02, 2012 3:26 PM ------ Message from: FARZANEH VYAS Created: ThuJanuary 01, 2012 2:05 PM Regarding: Return call requested Leslie, Patient called and stated the he was expecting a call back from you this morning. Please call him back at [phone]. Norbert, Farzaneh email communication from Dr. Mcmahan in response to my query to he and Dr. Graves on 12/30/11: I talked with him yesterday. I think we need to complete the PET-CT of the Head, which he could nottolerate b/c of anxiety. This will be impt for treatment planning. If he has not activity in the tonsil then I would favor proceeding with definitive RELIEF CAPTAIN to diminish delay given the negative biopsy. I will schedule the PET-CT SIERRA. -Aramis I had him penciled in for tonsillectomy and neck dissection on 01/18, but I agree with repeat PET/CT(will probably need more than Ativan though???). I???ll keep him on the schedule for now but we cancancel depending on PET/CT results. - Roldan From: Leslie Hall Sent: Monday, January 02, 2012 8:51 AM To: Sherrie William; Rio Graves Cc: Jesse Mcmahan Subject: Need plan on Schuyler Importance: High Hi all, He has decided to do chemo/rad instead of the major surgery. In Olivier???s note though, he had recommended tonsillectomy/bx then starting treatment. If that isn???t going to happen, then I can go ahead and get the sim and chemo dates started. Pt is really anxious and has called several times. Roldan- what would you like to do? Thanks k 01/02/12: I spoke with sect of RT and clarified the plan and did orders for the PET, G tube, and port. I havecalled pt to insure he was clear on the plan. documented in this encounter Plan of Treatment Upcoming Encounters Date Type Department Care Team (Late st Contact Info) Description 05/24/2025 11:00 AM EDT Office Visit Radiation Oncology at [address] [phone] [facility] [place] [address] documented as of this encounter Visit Diagnoses Not on filedocumented in this encounter Care Teams Shift Engineer Relationship Specialty Start Date End Date Bj Alves MD [address] [place] [phone] PCP - General 06/25/10 04/02/23 documented as of this encounter
--- OUTSIDE RECORDS SUMMARY | 2024-08-01 15:32 | XMS_ITS | Encounter Summary ---
Author Organization [facility] Address [address] [place] [address] Care Team Providers Care Hydroelectric Plant Operator Name Role Phone Bj Alves MD Primary Care Provider [phone] Reason for Visit * Reason Onset Date Comments Prior Auth, Medication 09/05/2022 Encounter Details Date Type Department Care Team ([facility] st Contact Info) Description 09/05/2022 Telephone [facility] Rheumatology [address] [place] [address] Christy Sharp RN Prior Auth, Medication Social History Tobacco Use Types Packs/Day Years [...] encounter Miscellaneous Notes * Telephone Encounter - Christy Sharp RN - 09/05/2022 1144 EST Opened in error; Dr. Frost patient [place] [facility] [place] documented in this encounter Plan of Treatment Not on file documented as of this encounter Visit Diagnoses Not on filedocumented in this encounter Care Teams Hydroelectric Plant Operator Relationship Specialty Start Date End Date Bj Alves MD [address] [place] [address] PCP - General 02/28/09 documented as of this encounter
--- OUTSIDE RECORDS SUMMARY | 2024-08-01 15:32 | XMS_ITS | Encounter Summary ---
Author Organization [facility] Address [address] [place] [address] Care Team Providers Care Toy Painter Name Role Phone Bj Alves MD Primary Care Provider [phone] Reason for Visit * Reason Comments Other Encounter Details Date Type Department Care Team ([facility] st Contact Info) Description 07/15/2021 Refill [facility] Rheumatology [address] [place] [address] [phone] Tanner Frost MD [facility] Rheumatology [address] [place] [address] [place] [address] Other Social History Tobacco Use Types Packs/Day [...] on filedocumented in this encounter Care Teams Toy Painter Relationship Specialty Start Date End Date Bj Alves MD [address] [place] [address] PCP - General 02/28/09 documented as of this encounter
--- OUTSIDE RECORDS SUMMARY | 2024-08-01 15:32 | XMS_ITS | Encounter Summary ---
Author Organization [facility] Address [address] [place] [address] Care Team Providers Care Picture Painter Name Role Phone Bj Alves MD Primary Care Provider [phone] Encounter Details Date Type Department Care Team (Latest Contact Info) Description 11/04/2018 11:21 EDT - 11/04/2018 23:59 EDT Hospital Encounter [address] [address] Marion Sanchez MD [place] Location [address] [place] [address] Discharge Disposition: Home or Self Care Social History Tobacco Use Types Packs/Day Years Used Date Smoking Tobacco: Never Assessed Sex and Gender Information Value Date Recorded Sex Assigned at Not on file Legal Sex Male 17:43 EST Gender Identity Male 03/26/2020 15:17 EDT Sexual Orientation Not on file documented as of this encounter Medications at Time of Discharge amlodipine (NORVASC) 10 mg tablet Take 10 mg by mouth daily. betamethasone dipropionate (DIPROLENE) 0.05 % ointment Apply 0.05 Tubes topically as needed. Fenofibrate 54 mg Tab Take 54 mg by mouth daily. fluticasone (FLONASE) 50 mcg/Actuation nasal spray 1 [place] by Nasal route as needed. Multivitamins with Minerals Tab Take 1 Tab by mouth daily. buPROPion (WELLBUTRIN XL) 150 mg XL tablet Take 150 mg by mouth daily. 0 meloxicam (MOBIC) 15 mg tablet Take 15 mg by mouth daily as needed for Pain. 0 omeprazole (PRILOSEC) 20 mg capsule Take 20 mg by mouth daily as needed. 0 documented as of this encounter Discharge Disposition Disposition Code Departure Means Destination Home or Self Half-Way documented in this encounter Plan of Treatment Not on file documented as of this encounter Visit Diagnoses Not on filedocumented in this encounter Care Teams Picture Painter Relationship Specialty Start Date End Date Bj Alves MD [address] [place] [address] PCP - General 02/28/09 documented as of this encounter
--- OUTSIDE RECORDS SUMMARY | 2024-08-01 15:32 | XMS_ITS | Encounter Summary ---
Author Organization [facility] Address [address] [place] [address] Care Team Providers Care Reefer Engineer Name Role Phone Bj Alves MD Primary Care Provider [phone] Encounter Details Date Type Department Care Team (Late st Contact Info) Description 08/16/2019 Lab Requisition [facility] Pathology & Laboratory Medicine - [facility] [address] [place] [address] Jericho Gonzales MD [address] [place] [phone] Benign lipomatous neoplasm of skin and subcutaneous tissue of head, face and neck Social History Tobacco Use Types [...] Procedure Name Priority Date/Time Associated Diagnosis Comments SURGICAL PATHOLOGY Today 08/16/2019 13 :00 EST documented in this encounter Results * SURGICAL PATHOLOGY (08/16/2019 13:00 EST) Final Diagnosis A. SOFT TISSUE, FOREHEAD LIPOMA, EXCISON: - Benign fibroadipose tissue and fibromuscular tissue, consistent with lipoma. 08/18/2019 17:[address] [facility] at 1721 Clinical History Lipoma of forehead D17.0: Benign lipomatous neoplasm of skin and subcutaneous tissue of head, face and neck 08/18/2019 17:21 [facility] Attestation By the signature below, the attending physician certifies that they have personally conducted a gross and/or microscopic examination of the described specimens and rendered or confirmed the above diagnosis. 08/18/2019 17:21 [facility] at 1721 Gross Description A. Received in formalin labelled with proper patient identification (initials Z, L) and forehead lipoma is a 2.0 x 1.5 x 0.9 cm irregular fragment of contreras-yellow to jung soft tissue weighing 1.03 g. The outer surface is inked. Sectioning reveals homogenous, contreras-yellow cut surfaces. No firm areas identified. The specimen is entirely submitted in A 1-A2. Leonor Krystal 08/17/2019 10:37 08/18/2019 17:21 [facility] Scanned Images 08/18/2019 17:21 [facility] Tissue SOFT TISSUE / Unknown 08/16/2019 13:00 EST 08/17/2019 10:18 EST us Jericho Gonzales MD PATHOLOGY ORDERABLES F inal Result [facility] [address] [place] [address] documented in this encounter Visit Diagnoses Diagnosis Benign lipomatous neoplasm of skin and subcutaneous tissue of head, face and neck documented in this encounter Care Teams Reefer Engineer Relationship Specialty Start Date End Date Bj Alves MD [address] [place] [address] PCP - General 02/28/09 documented as of this encounter
--- OUTSIDE RECORDS SUMMARY | 2024-08-01 15:32 | XMS_ITS | Encounter Summary ---
Author Organization [facility] Address [address] [place] [address] Care Team Providers Care Compact Assembler Name Role Phone Bj Alves MD Primary Care Provider [phone] Reason for Visit * Reason Comments Other Encounter Details Date Type Department Care Team ([facility] st Contact Info) Description 08/31/[address] [facility] Rheumatology [address] [place] [address] [phone] Tanner Forst MD [facility] Rheumatology [address] [place] [address] [place] [address] Other Social History Tobacco Use Types Packs/Day [...] on filedocumented in this encounter Care Teams Compact Assembler Relationship Specialty Start Date End Date Bj Alves MD [address] [place] [address] PCP - General 02/28/09 documented as of this encounter
--- OUTSIDE RECORDS SUMMARY | 2024-08-01 15:32 | XMS_ITS | Encounter Summary ---
Author Organization [facility] Address [address] [place] [address] Care Team Providers Care Interlocking And Signal Mechanic Name Role Phone Bj Alves MD Primary Care Provider [phone] Encounter Details Date Type Department Care Team (Late st Contact Info) Description 04/23/2023 Lab Requisition [facility] Pathology & Laboratory Medicine - [facility] [address] [place], [place] [address] Outr Resulting Lab, Provider Social History Tobacco [...] Date/Time Associated Diagnosis Comments T3 FREE Routine 04/23/2023 17:02 EDT documented in this encounter Results * T3 FREE (04/23/2023 17:02 EDT) T3, Free 5.0 2.8 - 5.3 pg/mL 04/23/2023 22:48 EDT [facility] Blood VENOUS BLOOD / Unknown 04/23/2023 17:02 EDT 04/23/2023 22:11 EDT us Provider Outr Resulting Lab CHEMISTRY & BLOOD GA S ORDERABLES Final Result [facility] [address] [place] [address] documented in this encounter Visit Diagnoses Not on filedocumented in this encounter Care Teams Interlocking And Signal Mechanic Relationship Specialty Start Date End Date Bj Alves MD [address] [place] [address] PCP - General 02/28/09 documented as of this encounter
--- OUTSIDE RECORDS SUMMARY | 2024-08-01 15:32 | XMS_ITS | Encounter Summary ---
Author Organization [facility] Address [address] [place] [address] Care Team Providers Care Plodding Operator Name Role Phone Bj Alves MD Primary Care Provider [phone] Reason for Visit * Reason Comments Other Encounter Details Date Type Department Care Team ([facility] st Contact Info) Description 07/17/2021 Refill [facility] Rheumatology [address] [place] [address] [phone] Tanner Frost MD [facility] Rheumatology [address] [place] [address] [place] [address] Other Social History Tobacco Use Types Packs/Day [...] on filedocumented in this encounter Care Teams Plodding Operator Relationship Specialty Start Date End Date Bj Alves MD [address] [place] [address] PCP - General 02/28/09 documented as of this encounter
--- OUTSIDE RECORDS SUMMARY | 2024-08-01 15:32 | XMS_ITS | Encounter Summary ---
Author Organization [facility] [place] [address] Care Team Providers Care Choir Accompanist Name Role Phone Bj Alves MD Primary Care Provider [phone] Encounter Details Date Type Department Care Team (Late st Contact Info) Description 12/22/2011 [place] [address] Butch Arcos MD Social History Tobacco Use Types Packs/Day Years [...] Miscellaneous Notes * Telephone Encounter - Butch Arcos MD - 12/22/2011 4:28 PM EDT Anesthesiology Follow-up phone call with Mr. Wyatt regarding his difficult airway and the dental damage he apparently sustained during his recent operative procedure. During my preoperative assessment I had cautioned he (and his ) that his history and anatomy suggested he might be a difficult intubation. This was based on his history of sleep apnea, thick/immobile neck and Mal. 3 grade. We (both senior resident and I) did indeed have difficulty visualizing his airway. We attempted nasal intubation twicebefore abandoning that and simply intubating orally. We intubated orally on the first attempt-MAC4 and were able to see epiglottis with hint of posterior arytenoids (bougie readily passed with intubat ion over bougie). During the procedure we did identify a chipped tooth (and Mr. Wyatt states thata dental implant-single tooth-also appears to have loosened during the procedure. We had not appreciated the latter). I explained that in our attempts to line up the anatomic structures of his airway we apparently had our metal blade on his teeth-certainly explaining at least the chipped tooth. I explained that itis important for he and his to be aware of the difficulties with his airway going forward. I did say that with good positioning preop and possibly other blades (e.g. Glidescope) that a planned oral intubation would not be extraordinarily difficult. (Though if he were to receive further therapyfor his pathology-such as RT-he might very well need an awake fiberoptic in the future). Mr. Wyatt took great pains to stress that he and his are not at all unhappy with the care they received and that they very much appreciated the followup. Olivier Arcos documented in this encounter Plan of Treatment Upcoming Encounters Date Type Department Care Team (Late st Contact Info) Description 05/24/2025 11:00 AM EDT Office Visit Radiation Oncology at [address] [phone] Jesse Mcmahan MD [facility] [place] [address] documented as of this encounter Visit Diagnoses Not on filedocumented in this encounter Care Teams Choir Accompanist Relationship Specialty Start Date End Date Bj Alves MD [address] [place] [phone] PCP - General 06/25/10 04/02/23 documented as of this encounter
--- OUTSIDE RECORDS SUMMARY | 2024-08-01 15:32 | XMS_ITS | Encounter Summary ---
Author Organization [facility] Address [address] [place] [address] Care Team Providers Care Saloonkeeper Name Role Phone Bj Alves MD Primary Care Provider [phone] Encounter Details Date Type Department Care Team (Late st Contact Info) Description 11/04/2018 Results Only [facility] [phone] Brenda Burns MD [address] [place] [phone] Social History Tobacco Use Types Packs/Day Years [...] Priority Date/Time Associated Diagnosis Comments SURGICAL PATHOLOGY Routine 11/04/2018 21 :27 EDT documented in this encounter Results * SURGICAL PATHOLOGY (11/04/2018 21:27 EDT) Pathology Report: SURGICAL PATHOLOGY REPORT Reports generated via electronic interface contain original data; however they are lacking the format of the original report. Caution should be taken when reading/interpret ing unformatted reports. Name: ? SEBASTIAN RUBI ? Accession #: ? [id number] ? : ? 1955 (Age: 63) ??M ? Collect Date: ? 11/04/2018 ? Location: ? [facility] ? Receive Date: ? 11/04/2018 ? Provider: BRENDA BURNS MD Copy to: ? Final Pathologic Diagnosis: A. COLON, ASCENDING, POLYP, POLYPECTOMY: - Tubular adenoma. B. COLON, SIGMOID, PROXIMAL, POLYP, POLYPECTOMY: - Tubular adenoma. C. COLON, SIGMOID, MID, POLYP, POLYPECTOMY: - Tubular adenoma. D. COLON, SIGMOID, DISTAL, POLYP, POLYPECTOMY: - Tubular adenoma. E. COLON, SIGMOID, DISTAL, POLYP #2, POLYPECTOMY: - Inflammatory polyp. Document reviewed and electronically signed by: TOMAS DAVIS MD Report ??Date: 11/08/2018 12:56 By the signature above, the attending physician certifies that he/she has personally conducted a gross and/or microscopic examination of the described specimens and rendered or confirmed the above diagnosis. Specimen(s) Received: A. ??Ascending colon polypectomy B. ??Proximal sigmoid polypectomy C. ??Mid sigmoid polypectomy D. ??Distal sigmoid colon polypectomy E. ??Distal sigmoid colon polyp #2 Clinical History: Large sigmoid polyp; colon polyps Gross Description: A. ?Received in formalin labelled with proper patient identification (initials Z, L) and ascending colon polyp are two pink-contreras tissues (0.2 x 0.2 x 0.2 cm and 0.3 x 0.2 x 0.2 cm). Entirely submitted in A1. B. ?Received in formalin labelled with proper patient identification (initials Z, L) and proximal sigmoid polyp is a 0.3 x 0.3 x 0.2 cm fragment of pink-contreras soft tissue. The margin is inked blue. The specimen is submitted in toto in B1. C. ?Received in formalin labelled with proper patient identification (initials Z, L) and mid sigmoid polyp is a single pink-contreras tissue fragment (0.3 x 0.3 x 0.2 cm). Submitted intact in C1. D. ?Received in formalin labelled with proper patient identification (initials Z, L) and distal colon polyp is a single pink-contreras tissue fragment (0.4 x 0.3 x 0.3 cm). Submitted intact in D1. E. ?Received in formalin labelled with proper patient identification (initials Z, L) and distal sigmoid colon #2 is a single pink-contreras tissue fragment (0.3 x 0.3 x 0.2 cm). Submitted intact in E1. VALENTÍN Jacinto (ASCP) 11/05/2018 7:44 AM End of Report [facility] 11/04/2018 21:2 7 EDT 11/04/2018 21:27 EDT us Brenda Burns MD PATHOLOGY ORDERABLES F inal Result [facility] [address] [place] [address] documented in this encounter Visit Diagnoses Not on filedocumented in this encounter Care Teams Saloonkeeper Relationship Specialty Start Date End Date Bj Alves MD [address] [place] [address] PCP - General 02/28/09 documented as of this encounter
--- OUTSIDE RECORDS SUMMARY | 2024-08-01 15:32 | XMS_ITS | Encounter Summary ---
Author Organization [facility] [place] [address] Care Team Providers Care Dogman/Woman Name Role Phone Bj Alves MD Primary Care Provider [phone] Reason for Visit * Reason Onset Date Comments Other 12/31/2011 Encounter Details Date Type Department Care Team (Late st Contact Info) Description 12/31/2011 Telephone [place] [address] Jesse Mcmahan MD [facility] [place] [address] Other Social History Tobacco Use Types Packs/Day [...] Telephone Encounter - Myra Pacheco RN - 12/31/2011 6:53 PM EDT Return phone call to patient no answer left message to return call. Patient has some questions unable to answer at this time. documented in this encounter Plan of Treatment Upcoming Encounters Date Type Department Care Team (Late st Contact Info) Description 05/24/2025 11:00 AM EDT Office Visit Radiation Oncology at [address] [phone] Jesse Mcmahan MD [facility] [place] [address] documented as of this encounter Visit Diagnoses Not on filedocumented in this encounter Care Teams Dogman/Woman Relationship Specialty Start Date End Date Bj Alves MD [address] [place] [phone] PCP - General 06/25/10 04/02/23 documented as of this encounter
--- OUTSIDE RECORDS SUMMARY | 2024-08-01 15:32 | XMS_ITS | Encounter Summary ---
Author Organization [facility] Address [address] [place] [address] Care Team Providers Care Gelatin Plant Supervisor Name Role Phone Bj Alves MD Primary Care Provider Reason for Visit * Reason Onset Date Comments Appointment Related 08/31/2020 Encounter Details Date Type Department Care Team (Late st Contact Info) Description 08/31/2020 Telephone [facility] [address], [place] [id number] Lise Jean Baptiste RN Appointment Related Social History Tobacco Use Types Packs/Day Years [...] encounter Miscellaneous Notes * Telephone Encounter - Lise Jean Baptiste RN - 08/31/2020 6341 EST Refill request from [employer] for MTX injectable.Called pt.He does not need refill.He has not decided where he will follow up and will call us back once he has made up his mind.For now,he is getting his refills from his PCP. documented in this encounter Plan of Treatment Not on file documented as of this encounter Visit Diagnoses Not on filedocumented in this encounter Care Teams Gelatin Plant Supervisor Relationship Specialty Start Date End Date Bj Alves MD [address] [place] [address] PCP - General 02/28/09 documented as of this encounter
--- OUTSIDE RECORDS SUMMARY | 2024-08-01 15:32 | XMS_ITS | Encounter Summary ---
Author Organization [facility] Address [address] [place] [address] Care Team Providers Care Consumer Studies Professor Name Role Phone Bj Alves MD Primary Care Provider [phone] Encounter Details Date Type Department Care Team (Late st Contact Info) Description 05/16/2022 Lab Requisition [facility] Pathology & Laboratory Medicine - [facility] [address] [place] [address], [place] [address] Outr Resulting Lab, Provider Social History Tobacco [...] Date/Time Associated Diagnosis Comments T3 FREE Routine 05/16/2022 9:18 EDT documented in this encounter Results * T3 FREE (05/16/2022 9:18 EDT) T3, Free 4.5 2.8 - 5.3 pg/mL 05/16/2022 21:49 EDT [facility] Blood VENOUS BLOOD / Unknown 05/16/2022 9:18 EDT 05/16/2022 20:47 EDT us Provider Outr Resulting Lab CHEMISTRY & BLOOD GA S ORDERABLES Final Result [facility] [address] [place] [address] documented in this encounter Visit Diagnoses Not on filedocumented in this encounter Care Teams Consumer Studies Professor Relationship Specialty Start Date End Date Bj Alves MD [address] [place] [address] PCP - General 02/28/09 documented as of this encounter
--- OUTSIDE RECORDS SUMMARY | 2024-08-01 15:32 | XMS_ITS | Encounter Summary ---
Author Organization [facility] Address [address] [place] [address] Care Team Providers Care Certified Vehicle Fire Investigator Name Role Phone Bj Alves MD Primary Care Provider [phone] Reason for Visit * Reason Comments New Patient Visit Referred here for ps oriatic arthritis.Reports bilat ankle pain,continuous flare.Keeps getting worse.Takes Otezla.Tried MTX,not helping so stopped.Followed by onco as recovering throat CA.Taking Celebrex with good results * Referral (Routine) - Closed Specialty Diagnoses / Procedures Referred By Sheila colvin Referred To Contact Rheumatology Diagnoses Psoriasis with arthropathy ([facility]) Jes Brown [address] [place] [phone] Phone: tel: fax: [facility] Rheumatology [address] [place] [id number] Phone: tel: fax: Referral ID Status Reason Start Date Expiration Date Visits Re quested Visits Authorized [id number] Closed 1 1 Encounter Details Date Type Department Care Team (Late st Contact Info) Description 03/29/2020 9:30 EDT Office Visit [facility] Rheumatology [address] [place] [address] Tanner Frost MD [facility] Rheumatology [address] [place] [address] [place] [phone] Psoriasis with arthropathy ([facility]-CMS) (Primary Dx) Social History Tobacco Use Types [...] 9:25 EDT documented as of this encounter Last Filed Vital Signs Vital Sign Reading Time Taken Comments Blood Pressure 122/80 03/29/2020 0930 EDT Pulse - - Temperature 35.6 ??C (96 ??F) 03/29/2020 0930 EDT Respiratory Rate - - Oxygen Saturation - - Inhaled Oxygen Concentration - - Weight 95.3 kg (210 lb) 03/29/2020 0930 EDT Height - - Body Mass Index - - documented in this encounter Patient Instructions * Patient Instructions* Tanner Frost MD - 03/29/2020 9:30 EDT Images from the original note were not included. Bilateral foot and ankle xrays at [facility] Will check with [facility] Radiation Oncology re use of biologic DMARD [facility] Patient Instructions Psoriasis: Care Instructions Your Care Instructions Psoriasis (say nhi-RI-ai-jorge) is a long-term skin problem that causes thick, white, silvery, or red patches on the skin. The patches may be small or large, and they occur most often on the knees, elbows, scalp, hands, feet, or lower back. The skin may be scaly. If the condition is severe, your skin can become itchy and tender. Psoriasisalso can be embarrassing if the patches are on visible areas. You can treat psoriasis with good care at home and with medicine from your doctor. You may put medicine on your skin and take pills or have shots to stop the redness and swelling. Your doctor also may suggest ultraviolet light treatments. Follow-up care is a guerrero part of your treatment and safety. Be sure to make and go to all appointments, and call your doctor if you are having problems. It's also a good idea to know your test resultsand keep a list of the medicines you take. How can you care for yourself at home? ?? If your doctor prescribes medicine, use it exactly as prescribed. Follow your doctor's advice for sunlight or ultraviolet light treatment. Call your doctor if you think you are having a problem with your medicine. ?? Protect your skin: ? Keep your skin moist. After bathing, put an ointment, cream, or lotion on your skin while it is still damp. This seals in moisture. Use hxhi-ood-wxfrzuy products that your doctor suggests. These may include Cetaphil, Lubriderm, or Eucerin. Petroleum jelly (such as Vaseline) and vegetable shortening (such as Crisco) also work. ? If you have psoriasis on your scalp, use a shampoo with salicylic acid, such as Neutrogena T/Raul. ? Avoid harsh skin products, such as those that contain alcohol. ? Cover your skin in cold weather. ? Try to prevent sunburn. Although short periods of sun exposure reduce psoriasis in most people, too much sun can damage the skin and cause skin cancer. In addition, sunburns can trigger psoriasis. Use sunscreen on areas of your skin that do not have psoriasis. Make sure to use a broad-spectrum sun screen that has a sun protection factor (SPF) of 30 or higher. Use it every day, even when it is cloudy. ? Take care to avoid accidents such as cutting or scraping your skin. An injury to the skin can cause psoriasis patches to form anywhere on the body, including the area of the injury. ? Avoid tight shoes, clothing, watchbands, and hats. These may irritate your skin. ? Use a vaporizer or humidifier to add moisture to your bedroom. Follow the directions for cleaningthe machine. ?? Try making one or more changes to your daily habits to help with managing your psoriasis. For example: ? Try to control stress and anxiety. They may cause psoriasis to appear suddenly or can make symptoms worse. ? If you smoke, think about quitting. If you need help quitting, talk to your doctor about stop-smoking programs and medicines. ? If you drink, limit or reduce the amount of alcohol you drink. ? If you are overweight, see if you can lose some weight. ?? Seek support from family and friends. Talk to a counselor or other professional if you feel sad about your condition and need more help. When should you call for help? Call your doctor now or seek immediate medical care if: ? You have signs of infection, such as: ? Increased pain, swelling, warmth, or redness. ? Red streaks leading from the area. ? Pus draining from the area. ? A fever. ??Watch closely for changes in your health, and be sure to contact your doctor if: ? You have swelling, stiffness, or pain in your joints. ? You do not get better as expected. Where can you learn more? Go to https://[email or web address].Datamolino/Lockbox or log into your [employer] account at https://[email or web address] Locksmith Enter U759 in the search box to learn more about Psoriasis: Care Instructions. Current as of: June 01, 2019Content Version: 12.4 ?? 0618-4345 [facility]. Care instructions adapted under license by [facility]. If you have questions about a medical condition or this instruction, always ask your healthcare professional. [facility] disclaims any warranty or liability for your use of this information. documented in this encounter Progress Notes * Tanner Frost MD - 03/29/2020 0930 EDT [facility] [place] [place] Rheumatology Chief Complaint Patient presents with ??? New Patient Visit Referred here for psoriatic arthritis.Reports bilat ankle pain,continuous flare.Keeps getting worse.Takes Otezla.Tried MTX,not helping so stopped.Followed by onco as recovering throat CA.Taking Celebrex with good results Salvador is a new patient to [facility] [place] [place] rheumatology. He has been referred by his primary care provider Bj Alves for evaluation of possible psoriatic arthritis. Current treatment for psoriasis includesOtezla. Articular pain has been treated with Celebrex and methylprednisolone which proved to be ineffective. Referral is in part to determine if he may be a candidate for a biologic agent. Previously cared for by Dr. Garcia. 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 Reason for referral is uncontrolled psoriatic arthritis on Otezla. Chief complaint: Pain and swelling in ankles heels ball of feet. HPI: Salvador is a 65-year-old with fairly [...] therapy alone. Diagnosis was made by his primary care provider. He was evaluated by Dr. Lua in 2012 who confirmed the diagnosis of psoriasis. He was diagnosed with throat cancer 2011. He had radiation therapy and chemotherapy. He finished his last treatment in 2012. He is quite active in practicing [employer]. He attributed joint pains in ankles and [...] He was referred to Dr. Garcia in [place] and was seeing her approximately every 3 months. He was started on methotrexate and was up to 0.4 cc weekly. He was switched to Otezla. This did okay with his skin yet not so great on his joints. He was tr eated with combination therapy with Otezla and methotrexate for approximately 6 months. Radiation oncology recommended stopping methotrexate as the combination was not working. Biologic DMARD treatment was last discussed with radiation oncology last May. Current Outpatient Medications Medication ??? amlodipine (NORVASC) 10 mg tablet ??? apremilast (OTEZLA) 30 mg tablet ??? betamethasone dipropionate (DIPROLENE) 0.05 % ointment ??? celecoxib (CELEBREX) 100 mg capsule ??? Fenofibrate 54 mg Tab ??? fluticasone (FLONASE) 50 mcg/Actuation nasal spray ??? Multivitamins with Minerals Tab No current facility-administered medications for this visit. Allergies include: Patient has no known allergies. Past Medical History: Diagnosis Date ??? Cancer ([facility]) 2013 Throat tx with chemo and radiation [...] 3.3 x 5.2 cm. 11/27/[address] [facility]. Due to severe claustrophobia only performed from the lower chest to mid thighs. No distant metastases identified. 12/12/2011 EUA with triple endoscopy and biopsy. Enrolled on RTOG 1016 randomized to cetuximab arm. Received 70 Gy completed 04/06/2012. Most recent follow-up with Dr. Mcmahan at [facility] 06/08/2019. Addressed the following ongoing symptoms:Dysphagia, rare or done aphasia, stable trismus, moderate dysgeusia and moderate xerostomia, painful neck and shoulder pain left more than right associated with activity, ulnar neuropathy, intermittent tinnitus. Review of Systems: 14 point ROS was done with the patient. See scanned document for details. Pertinent positives and negatives are noted in the HPI. Constitutional: No fevers. He does have fatigue. No night sweats. Weight is stable. HEENT: No [...] treated with topical therapy. He lives in [place] with his who is a PA at the [employer]. 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 Hobbies and interests: Demohourery-traditional, competitive/shooting. Hiking. Likes to workout. Exercise: Very active. No recent travel. Toxic exposures: Radiation therapy and chemotherapy and prior tobacco use. No new medications. No known arthropod contact ECM rash. Physical Examination: BP 122/80 Temp (!) 35.6 ??C (96 ??F) Wt 95.3 kg (210 lb) Physical exam: General appearance and movement: alert, nontoxic, no distress, healthy appearing. Gets out of chaireasily without stiffness or pain. HEENT: anicteric sclerae, conjunctivae clear Neck: no lymphadenopathy or thyromegaly; firm anterior soft tissue in the low cervical spine: Fibrotic changes cervical region left more than right Heart: regular rate and rhythm no extra [...] flexion, extension, internal and external rotation Knees: Small cool left knee effusion; minimal bilateral crepitation Ankles: Both ankles swollen and warm Feet: Right great toe swelling and warmth and tenderness to palpation along MTP rows bilaterally [...] ??? Performing Lab 03/23/2020 [facility] ??? COVID-19 Result 03/23/2020 NEGATIVE Lab Requisition on 01/25/2020 Component Date Value ??? COVID-19 Result 01/25/2020 NEGATIVE ??? Performing Lab 01/25/2020 [facility] ??? COVID-19 Result 01/25/2020 NEGATIVE Diagnosis / Assessment: 1. Psoriasis with arthropathy ([facility]) Clinical presentation is consistent with psoriatic arthritis. Currently on Otezla which is not addressing his plaque psoriasis on the elbows or the left upper leg and is not really doing anything for the inflammation he is experiencing in both ankles and MTPs. It did not appear that combination of Otezla and methotrexate had any significant therapeutic effect on his joint inflammation. He had been evaluated for possibility of gout given the location of the inflammatory manifestations. He was treated acutely for gout without much response. He was additionally on allopurinol for period of time. His uric acid at one point was 9.5. Most recently 8.9. I donot know the full history of his gout evaluation and will be obtaining records from Dr. Garcia to fill in these blanks. Joint inflammation has not responded to monotherapy with Otezla, monotherapy with methotrexate though at low dose of 10 mg weekly, or combined therapy with Otezla and methotrexate. Both Rheumatology and Radiation Oncology have been reluctant to consider augmenting therapy with a biologic DMARD. By his report radiation oncology has seemed to be more receptive to this idea though my review of last clinic note did not provide any opinion on this matter. I think it would be help ful to discuss directly with Dr. Mcmahan his opinion about use of this level of immunosuppressant therapy with his diagnosis of squamous cell cancer. Thank you very much for referring Salvador to [facility] [place] [place] rheumatology. Please feel free to contact me if youhave any further questions or concerns regarding his evaluation. Recommendations/Evaluation: 60 mins gkjv-mp-yurl time, > 50% spent in discussion about the diagnostic and therapeutic approach to assessing patients with musculoskeletal complaints. We discussed how to differentiate between inflammatory and mechanical causes of musculoskeletal pain. We discussed pattern recognition in identifying specific rheumatologic conditions and the role of diagnostic testing. We discussed treatmentoptions including pharmacologic and nonpharmacologic approaches. Tanner Frost MD documented in this encounter Plan of Treatment Not on file documented as of this encounter Visit Diagnoses Diagnosis Psoriasis with arthropathy ([facility])- Primary Psoriatic arthropathy documented in this encounter Discontinued Medications Medication Sig Discontinue Reason Start Date End Da te buPROPion (WELLBUTRIN XL) 150 mg XL tablet Take 150 mg by mouth daily. Therapy completed 03/29/2020 meloxicam (MOBIC) 15 mg tablet Take 15 mg by mouth daily as needed for Pain. Therapy completed 03/29/2020 omeprazole (PRILOSEC) 20 mg capsule Take 20 mg by mouth daily as needed. Therapy completed 03/29/2020 documented as of this encounter Historical Medications * This list may reflect changes made after this encounter. celecoxib (CELEBREX) 100 mg capsule Take 100 mg by mouth daily. apremilast (OTEZLA) 30 mg tablet Take 30 mg by mouth 2 times daily. added in this encounter Care Teams Certified Vehicle Fire Investigator Relationship Specialty Start Date End Date Bj Alves MD [address] [place] [address] PCP - General 02/28/09 documented as of this encounter
--- OUTSIDE RECORDS SUMMARY | 2024-08-01 15:32 | XMS_ITS | Encounter Summary ---
Author Organization [facility] Address [address] [place] [address] Care Team Providers Care Timber Packer Name Role Phone Bj Alves MD Primary Care Provider [phone] Encounter Details Date Type Department Care Team (Late st Contact Info) Description 07/07/2022 Lab Requisition [facility] Pathology & Laboratory Medicine - [facility] [address], [place] [address] Outr Resulting Lab, Provider Social History Tobacco [...] Date/Time Associated Diagnosis Comments T3 FREE Routine 07/07/2022 11:31 EST documented in this encounter Results * T3 FREE (07/07/2022 11:31 EST) T3, Free 2.9 2.8 - 5.3 pg/mL 07/07/2022 22:44 EST [facility] Blood VENOUS BLOOD / Unknown 07/07/2022 11:31 EST 07/07/2022 22:11 EST us Provider Outr Resulting Lab CHEMISTRY & BLOOD GA S ORDERABLES Final Result [facility] [address] [place] [address] documented in this encounter Visit Diagnoses Not on filedocumented in this encounter Care Teams Timber Packer Relationship Specialty Start Date End Date Bj Alves MD [address] [place] [address] PCP - General 02/28/09 documented as of this encounter
--- OUTSIDE RECORDS SUMMARY | 2024-08-01 15:32 | XMS_ITS | Encounter Summary ---
Author Organization [facility] Address [address] [place] [address] Care Team Providers Care Cnp Name Role Phone Bj Alves MD Primary Care Provider [phone] Encounter Details Date Type Department Care Team (Late st Contact Info) Description 04/26/2022 Lab Requisition [facility] Pathology & Laboratory Medicine - [facility] [place] [address] [place], [place] [address] Outr Resulting Lab, Provider Social History Tobacco [...] Procedure Name Priority Date/Time Associated Diagnosis Comments FUNGUS CULTURE Routine 04/25/2022 16:15 EDT documented in this encounter Results * FUNGUS CULTURE (04/25/2022 16:15 EDT) Organism ID No fungi isolated 05/02/2022 9:59 EDT [facility] Swab ENTIRE TONGUE / Unknown 04/25/2022 16:15 EDT 04/26/2022 14:56 EDT us Provider Outr Resulting Lab MICROBIOLOGY - GENER AL ORDERABLES Final Result [facility] [address] [place] [address] documented in this encounter Visit Diagnoses Not on filedocumented in this encounter Care Teams Cnp Relationship Specialty Start Date End Date Bj Alves MD [address] [place] [address] PCP - General 02/28/09 documented as of this encounter
--- OUTSIDE RECORDS SUMMARY | 2024-08-01 15:32 | XMS_ITS | Encounter Summary ---
Author Organization [facility] Address [address] [place] [address] Care Team Providers Care Logging Superintendent Name Role Phone Bj Alves MD Primary Care Provider [phone] Encounter Details Date Type Department Care Team (Late st Contact Info) Description 11/01/2021 Lab Requisition [facility] Pathology & Laboratory Medicine - [facility] [address] [place] [address] Jericho Gonzales MD [address] [place] [phone] Encounter for other general examination Social History Tobacco Use Types Packs/Day Years [...] Date/Time Associated Diagnosis Comments SURGICAL PATHOLOGY Today 11/01/2021 11 :37 EDT documented in this encounter Results * SURGICAL PATHOLOGY (11/01/2021 11:37 EDT) Note to Patient The following pathology results have been interpreted by your pathologist and may be available to you before your health provider has had the opportunity to review them. Please allow time for your provider to receive these results and explore management options, if applicable. 11/06/2021 13:48 [facility] Final Diagnosis A. TRANSVERSE COLON, BIOPSY: - Hyperplastic polyp B. TRANSVERSE COLON, BIOPSY #2: - Tubular adenoma C. TRANSVERSE COLON, BIOPSY #3: - Tubular adenoma 11/06/2021 13:48 [facility] Attestation By the signature below, the attending physician certifies that they have 1) personally conducted a gross and/or microscopic examination of the described specimen(s), and/or personally interpreted the results of laboratory testing of the described specimen(s), and 2) personally rendered or confirmed the above diagnosis. 11/06/2021 13:48 [facility] at 1348 Clinical History History of colon polyps; diverticulosis, colon polyps 11/06/2021 13:48 [facility] Gross Description A. Received in formalin labelled with proper patient identification (initials Z, L) and transverse colon polyp # 1? is a contreras nodular tissue, 0.3 x 0.2 x 0.1 cm. Entirely submitted in A1. B. Received in formalin labelled with proper patient identification (initials Z, L) and transverse colon polyp # 2 are two pale-contreras tissues averaging 0.1 x 0.1 by less than 0.1 cm. Entirely submitted in B1. C. Received in formalin labelled with proper patient identification (initials Z, L) and transverse polyp is a contreras-brown polyp, 0.3 x 0.3 x 0.2 cm. Entirely submitted in C1. VALENTÍN DONNELLY(ASCP) 11/04/2021 10:22 11/06/2021 13:48 [facility] Performing Lab [facility] 11/06/2021 13:48 [facility] Scanned Images 11/06/2021 13:48 [facility] Tissue ENTIRE TRANSVERSE COLON / Unknown 11/01/2021 11:37 EDT 11/01/2021 22:02 EDT Tissue specimen (specimen) TRANSVERSE COLON STRUCTURE / Unknown 11/01/2021 11:37 EDT 11/01/2021 22:02 EDT Tissue specimen (specimen) TRANSVERSE COLON STRUCTURE / Unknown 11/01/2021 11:37 EDT 11/01/2021 22:03 EDT us Jericho Gonzales MD PATHOLOGY ORDERABLES F inal Result [facility] [address] [place] [address] documented in this encounter Visit Diagnoses Diagnosis Encounter for other general examination documented in this encounter Care Teams Logging Superintendent Relationship Specialty Start Date End Date Bj Alves MD [address] [place] [address] PCP - General 02/28/09 documented as of this encounter
--- OUTSIDE RECORDS SUMMARY | 2024-08-01 15:32 | XMS_ITS | Encounter Summary ---
Author Organization [facility] [place] [address] Care Team Providers Care Stable Manager Name Role Phone Bj Alves MD Primary Care Provider [phone] Reason for Visit * Reason Onset Date Comments Other 01/08/2012 G-tube teaching Encounter Details Date Type Department Care Team (Late st Contact Info) Description 01/08/2012 Telephone [place] [address] Jesse Mcmahan MD [facility] [place] [address] Other (G-tube teaching) Social History Tobacco Use Types Packs/Day Years [...] Telephone Encounter - Myra Pacheco RN - 01/09/2012 5:18 PM EDT G-Tube Instruction Nursing unable to do patient teaching related to G-Tube In person. Patient education done over the phone. Patient also stated did not want VNA service to reinforce patient teaching related to G-tube care. Patient, family member, friend or nurse is to provide supplies for G-tube dressing and flushing equipment. Diagnosis: Head and Neck Cancer Date of G-tube placement: 01/09/12 People present for instruction: Review G-tube teaching over the phone Barriers to learning: Distance and Time Method of instruction: Verbal only Site Care: Informed patient that there will be anchors around the tube insertion site for 10-14 days. These anchors will secure the tube and they should remain dry and intact. The dressing can be changed daily and prn. The site should be observed with each dressing change. Any purulent drainage,severe redness, swelling or sever pain should be reported to your nurse or physician. Once the anchors have been removed the site can be washed daily with soap and water. Hand washing technique was reviewed. Dressing supplies shown and demonstration of dressing change done with sample g-tube. Tube Care: Discussed the importance of keeping tube secure with flexi-trak or similar device. Instructed to flush tube daily if it is not used for nutrition or medication delivery. Flexi-trak shown and demonstration of application done with sample g-tube. Flushing Instructions: Instructed to flush the g-tube daily with 60 cc's of water when tube not being used for nutrition or medication delivery. Supplies for tube flushing shown and demonstration of drawing up water and flushing of tube done using sample tube. Other Important Information: Instructed not to put anything but water and formula into the tube. Nomedications should be put through the tube unless instructed by the MD or nursing staff. Reviewed instruction of what to do should tube become dislodged-slide the red rubber catheter (provided at time of tube placement) into the tract and phone the physician. Further instruction as to where to report and when will be given to you. Red rubber catheter shown to patient. You will have an appointmentwith a dietitian to determine which formula and delivery method will most likely work best for you. Pain Management: Discussed that localized discomfort at the insertion site is common and pain medication should be taken as directed. If no relief when using pain medication as prescribed the physician should be called. Some people experience abdominal cramping or gas-like pains. Walking often willhelp relieve this type of discomfort. Return Demonstration of Tube Flushing: none at this time Patient Concerns/Comments: Patient states he does not want VNA to come in to do teaching of G-Tube site care and flushing documented in this encounter Plan of Treatment Upcoming Encounters Date Type Department Care Team (Late st Contact Info) Description 05/24/2025 11:00 AM EDT Office Visit Radiation Oncology at [address] [phone] Jesse Mcmahan MD [facility] [place] [address] documented as of this encounter Visit Diagnoses Not on filedocumented in this encounter Care Teams Stable Manager Relationship Specialty Start Date End Date Bj Alves MD [address] [place] [phone] PCP - General 06/25/10 04/02/23 documented as of this encounter
--- OUTSIDE RECORDS SUMMARY | 2024-08-01 15:32 | XMS_ITS | Encounter Summary ---
Author Organization [facility] [place] [address] Care Team Providers Care Block And Case Maker Name Role Phone Bj Alves MD Primary Care Provider [phone] Encounter Details Date Type Department Care Team (Late st Contact Info) Description 12/12/2011 1:34 PM EDT - 12/12/2011 4:02 PM EDT [place] [phone] Rio Graves MD [facility] [place] [address] LARYNGOSCOPY, MICROSCOPE, WITH BIOPSY (WRVU 3.55) Social History Tobacco Use Types Packs/Day Years [...] Sign Reading Time Taken Comments Blood Pressure 156/93 12/12/2011 3:34 PM EDT Pulse 89 12/12/2011 3:34 PM EDT Temperature 36.8 ??C (98.2 ??F) 12/12/2011 3:34 PM ED T Respiratory Rate 16 12/12/2011 3:34 PM EDT Oxygen Saturation 98% 12/12/2011 3:34 PM EDT Inhaled Oxygen Concentration - - Weight 110.7 kg (244 lb) 12/12/2011 12:48 PM EDT Height 175.3 cm (5' 9) 12/12/2011 12:48 PM EDT Body Mass Index 36.03 12/12/2011 12:48 PM EDT documented in this encounter Discharge Instructions * Patient Instructions* Jennifer Akins MD - 12/12/2011 3:39 PM EDT Patient Discharge Instructions: RESTRICTIONS: - Avoid strenuous activity for one week - Avoid heavy lifting for one week - Don't take aspirin or blood thinner until OK'd by your physician - No driving a car while taking narcotic pain medications RECOMMENDATIONS: - Stool softener, mild laxatives or enemas if needed to avoid straining with a bowel movement - Take Tylenol for a low grade fever (less than 100 degrees F) CALL YOUR DOCTOR IF: - Increased bleeding occurs - Increased, continued or a different type of pain occurs - Breathing problems - Temperature greater than 101 degrees F - Signs or symptoms of infection Diet: Soft foods for a few days, then return to regular diet. Follow up appointments: Dr. Graves will contact you with the pathology. If you have not heard from us please call the clinic later in the week next week. IMPORTANT PHONE NUMBERS: ENT Clinic: [phone] ENT Residents Seamer Operator (after 5pm or before 8am): [phone] documented in this encounter Medications at Time of Discharge Medication Sig Dispensed Refills Start Date End Date OXYcodone (ROXICODONE) 5 mg/5 mL solution Take [...] as of this encounter Progress Notes * Tash Alexis RN - 12/15/2011 10:46 AM EDT Post op call done with pt. Pt states that he was very happy with preop care. [place] well taken care of and that staff was attentive. Went on to state that he was not happy with post op care. Stated that he felt that staff was not attentive enough regarding post op abdominal pain. Stated that when he could finally get oob (once anesthesia wore off), he realized that his pain was due to a full bladder. Voided with immediate relief. States no continued abdominal pain or difficulty voiding. * Amber Pascual RN - 12/12/2011 3:58 PM EDT PT emptied bladder in BR and said that the pain in his rectum was gone! I feel so much better . Monse Pascual RN * Amber Pascual RN - 12/12/2011 3:49 PM EDT Pt C/O rectal pain- needing to have a bowel movement. Taking clear lig. In and out of BR sitting onthe toilet. NO BM > MM documented in this encounter H&P Notes * Rio Graves MD - 12/12/2011 1:32 PM EDT Patient Name: Sebastian Rubi Patient Age: 56 y.o. Birthdate: 1955 Admit date: 12/12/2011 Attending Physician: Rio Graves MD The patient's history and physical exam have been reviewed and completed. There has been no interval change from that of the pre-operative history and physical exam done within the last 30 days. documented in this encounter Miscellaneous Notes * Miscellaneous - Provider, Scanning - 12/15/2011 7:08 AM EDT * Miscellaneous - Provider, Scanning - 12/14/2011 11:21 PM EDT * OR Attestation - Rio Graves MD - 12/12/2011 3:38 PM EDT Attestation: Case Date: 12/12/2011 I was present and I participated during the entire procedure (does not need to include opening and closing). RIO GRAVES MD 12/12/2011 * Op Note - Rio Graves MD - 12/12/2011 3:30 PM EDT Images from the original note were not included. [facility] Operative Note Patient Name: Sebastian Rubi : [id number] MR#: [id number] Case Date: 12/12/2011 Surgeon: Surgeon(s) and Role: * RIO GRAVES MD - Primary * Jennifer AKINS MD - Resident-Surgeon Chief Preoperative diagnosis: Laryngeal lesion Postoperative diagnosis: Laryngeal lesion Procedure(s): LARYNGOSCOPY, MICROSCOPE, WITH BIOPSY LARYNGOSCOPY, DIRECT, EXCISION OF TUMOR, CORD STRIPPING, MICRO General Estimated Blood Loss: min Drains: none Disposition: awakened from anesthesia, extubated and taken to the recovery room in a stable condition, having suffered no apparent untoward event. Condition: doing well without problems (Please see the Surgical Encounter Summary for any Implant and Specimen details pertinent to this patient.) HPI/Surgical Indications: This patient presents with metastatic adenopathy. Primary ? at the tonguebase/tonsil, left side. Procedure Description: Informed consent obtained. Time out performed. Anesthesia attempted nasal intubation but had to convert to oral. A tooth guard was placed to protect the upper dentition. Sina vallecula- scope was used to expose the larynx and hypopharynx. A laryngeal telescope was used for visualization. Photodocumentation was performed. A cyst in the left vallecula is seen. This was excised using laryngeal telescope, cups, and micro-scissors. We did encounter a fair amount of bleeding and suction cautery was used for this. Biopsies: - Left BOT - Left tonsil Findings: LPR changes to the mucosa. Difficult to visualize the larynx. Left tonsil is firm Ulcerative area at the left tongue base also suspicious for primary. BOT and tonsil seem to be discontiguous. Visualization for TORS approach is good for the tonsil resection but may be challenging for the BOT(FK retractor may help with this). TORS resection could be attempted however patient is not the ideal candidate. * Miscellaneous - Provider, Scanning - 12/12/2011 1:15 PM EDT documented in this encounter Plan of Treatment Upcoming Encounters Date Type Department Care Team (Late st Contact Info) Description 05/24/2025 11:00 AM EDT Office Visit Radiation Oncology at [address] [phone] Jesse Mcmahan MD [facility] [place] [address] documented as of this encounter Procedures Procedure Name Priority Date/Time Associated Diagnosis Comments LARYNGOSCOPY, DIRECT, EXCISION OF TUMOR, CORD STRIPPING, MICRO Routine 12/15/2011 7:53 AM EDT Head and neck cancer MOLECULAR GENETICS REPORT Routine 12/12/2011 3:45 PM EDT SURGICAL PATHOLOGY REPORT Routine 12/12/2011 3:45 PM EDT SPECIMEN TO PATHOLOGY Routine 12/12/2011 3:04 PM EDT SPECIMEN TO PATHOLOGY Routine 12/12/2011 3:04 PM EDT SPECIMEN TO PATHOLOGY Routine 12/12/2011 2:57 PM EDT LARYNGOSCOPY, DIRECT, EXCISION OF TUMOR, CORD STRIPPING, MICRO (WRVU 4.52) 12/12/2011 2:04 PM EDT Head and neck cancer LARYNGOSCOPY, MICROSCOPE, WITH BIOPSY (WRVU 3.55) 12/12/2011 2:04 PM EDT Head and neck cancer documented in this encounter Results * MOLECULAR GENETICS REPORT (12/12/2011 3:45 PM EDT) Molecular Report ? [facility] ? Provider: ?? RIO GRAVES Pt. Name: ?? SEBASTIAN RUBI ? Acc #: ?[id number] ?Pt. ? Col Date: ?? 12/12/2011 ? /Sex: ?1955,(56 years),Male ? Rec Date: ?? 12/12/2011 ? LOC: ?SDP ? MOLECULAR GENETIC STUDIES ? ---REPORT OF DNA ANALYSIS--- ? Human Papillomavirus (HPV) Genotyping Analysis ? Indication for Study: Laryngeal lesion ? Specimen: B - Left tongue base ? Analysis: ??HPV Genotyping by Leila Linear Array HPV Genotyping Test ? Results: Positive for HPV genotype 16 ? Comments: The results of this test indicate that the submitted tissue ? contained one of the 37 HPV types detected by this assay. ? Methods: ??Highly purified genomic DNA was extracted from a formalin fixed ? paraffin embedded tissue section after lysing of the cells. HPV genotyping ? was performed using the Linear Array HPV Genotpying Test that includes PCR ? for a consensus sequence found in high and low risk HPV types followed by ? gel electrophoresis, and a linear array (DNA transfer) with probes for 37 ? HPV types, 13 of which are high risk (16, 18, 31, 33, 35, 39, 45, 51, 52, ? 56, 58, 59, 68). ??Products were verified using gel electrophoresis. ? This test was developed and its performance determined by the [facility] ? Molecular Pathology ??Laboratory. It has not been cleared or approved by the ? U.S. Food and Drug Administration. This test is used for clinical purposes ? and should not be considered as investigational or for research purposes. ? The Molecular Pathology Laboratory is certified by the Clinical Laboratory ? Improvement Act of 1987 and as such is allowed to perform high complexity ? clinical testing. ? References: ??Yaneth TW, Ty . Biochemistry 1991;30:9896-1656; ? James ARREDONDO, et al. J pathol 1999;189:12-19; Levar PE, et al. J Clin ? Microbiol 2000;38:357-361. ? _ ? Verified date: ??01/22/12 ??HAB ? Verified by: ?Zaira Magana MD ? (Electronic Signature) RAMU COBOS 12/12/2011 3:45 PM EDT Rio Graves MD PATHOLOGY/CYTOLOGY ORDERABLES [facility] * SURGICAL PATHOLOGY REPORT (12/12/2011 3:45 PM EDT) Surgical Pathology Report ? [facility] ? Provider: ?? RIO GRAVES Pt. Name: ?? SEBASTIAN RUBI ? Acc #: ?[id number] ?Pt. ? Col Date: ?? 12/12/2011 ? /Sex: ?1955,(56 years),Male ? Rec Date: ?? 12/12/2011 ? LOC: ?SDP ? SURGICAL PATHOLOGY ? ---Pathologic Diagnosis--- ? A - Cyst, left vallecula ? Benign squamous lined cyst ? B - Left tongue base ? Invasive squamous cell carcinoma, intermediate grade ? C - Left tonsil ? negative for malignancy ? 12/15/11 ? VAM ? 12/15/11 Verified by: ? Reuben Dorado MD ? Pathologist ? (Electronic Signature) ? The attending pathologist whose signature appears on this report has ? reviewed all diagnostic slides and has edited the gross and/or ? microscopic portion of the report in rendering the final pathologic ? diagnosis. ? ---Microscopic Description--- ? Slides reviewed, microscopic description not recorded. ? ---Gross Description--- ? A - Labeled/Fixative : Cyst left vallecula, fresh. ? Qty/Size/Weight: ?1.3 x 1.0 x 0.6 cm. ? Tissue Description: ?? Intact cyst. ? Sections/Process ing: ??Bisected. ??(T1) ? B - Labeled/Fixative : Left tongue base, fresh. ? Qty/Size/Weight: ?Four, ranging from 0.3 cm to 0.6 cm. ? Tissue Description: ?? Becenti fragments of mucosa. ? Sections/Process ing: ??(T1) ? C - Labeled/Fixative : Left tonsil, fresh. ? Qty/Size/Weight: ?Two, averaging 0.4 cm. ? Tissue Description: ?? Soft, pink tissues. ? Sections/Process ing: ??(T1) ??aje/SNS ? ---Clinical Information--- ? Specimen Submitted: ? A - Cyst left vallecula ? [facility] ? Provider: ?? RIO GRAVES Pt. Name: ?? SEBASTIAN RUBI ? Acc #: ?[id number] ?Pt. ? Col Date: ?? 12/12/2011 ? /Sex: ?1955,(56 years),Male ? Rec Date: ?? 12/12/2011 ? LOC: ?SDP ? SURGICAL PATHOLOGY ? B - Left tongue base ? C - Left tonsil ? Clinical History/Diagnosi s: ? Laryngeal lesion CERNER MILLENNIUM 12/12/2011 3:45 PM EDT Rio Graves MD PATHOLOGY/CYTOLOGY ORDERABLES Performing Organization Address [facility] Co de Phone Number [facility] * Specimen to Pathology (surgical or derm) (12/12/2011 3:04 PM EDT) AP Specimen 12/12/2011 3:04 PM EDT 12/12/2011 3:04 PM EDT Narrative CERCHAITANYA MILLENNIUM - 12/12/2011 3:04 PM EDT Specimen requisition ordered. ??Separate Pathology report to follow Rio Graves MD PATHOLOGY/CYTOLOGY ORDERABLES Performing Organization Address [facility] Co de Phone Number [facility] * Specimen to Pathology (surgical or derm) (12/12/2011 3:04 PM EDT) AP Specimen 12/12/2011 3:04 PM EDT 12/12/2011 3:04 PM EDT Narrative RAMU COBOS - 12/12/2011 3:04 PM EDT Specimen requisition ordered. ??Separate Pathology report to follow Rio Graves MD PATHOLOGY/CYTOLOGY ORDERABLES Performing Organization Address [facility] Co de Phone Number RAMU COBOS * Specimen to Pathology (surgical or derm) (12/12/2011 2:57 PM EDT) AP Specimen 12/12/2011 2:57 PM EDT 12/12/2011 2:58 PM EDT Narrative RAMU COBOS - 12/12/2011 2:57 PM EDT Specimen requisition ordered. ??Separate Pathology report to follow Rio Graves MD PATHOLOGY/CYTOLOGY ORDERABLES Performing Organization Address [facility] de Phone Number RAMU COBOS documented in this encounter Visit Diagnoses Diagnosis Head and neck cancer Malignant neoplasm of head, face, and neck Head and neck cancer Malignant neoplasm of head, face, and neck documented in this encounter Administered Medications Inactive Administered Medications - up to 3 most recent administrations Medication Order MAR Action Action Date Dose Rate Site epiNEPHrine (ADRENALIN) 1:1,000 (0.1 %) nasal solution ONCE PRN, Starting on Thu12/12/11 at 1527, Until Thu12/12/11 at 2038, Congestion, Intra-Operative (Intra-Procedure), Routine Given 12/12/2011 3:27 PM EDT 1 puff 19- Surgical Site OXYcodone (ROXICODONE) 5 mg/5 mL solution 5 mg 5 mg, Oral, EVERY 4 HOURS PRN, Starting on Thu12/12/11 at 1538, Until Thu12/12/11 at 2038, Pain, Routine Given 12/12/2011 4:16 PM EDT 10 mg documented in this encounter Active and Recently Administered Medications Times are shown in EDT. PRN Medication Order 12/10/2011 12/11/2011 12/12/2011 epiNEPHrine (ADRENALIN) 1:1,000 (0.1 %) nasal solution (CANCELED) ONCE PRN, Starting on Thu12/12/11 at 1527, Until Thu12/12/11 at 2038, Congestion, Intra-Operative (Intra-Procedure), Routine 1527 (Given - Provid er: Jennifer Akins MD) OXYcodone (ROXICODONE) 5 mg/5 mL solution 5 mg 5 mg, Oral, EVERY 4 HOURS PRN, Starting on Thu12/12/11 at 1538, Until Thu12/12/11 at 2038, Pain, Routine 1616 (Given - Provid er: Amber Pascual RN) documented in this encounter Care Teams Block And Case Maker Relationship Specialty Start Date End Date Bj Alves MD [address] [place] [phone] PCP - General 06/25/10 04/02/23 documented as of this encounter
--- OUTSIDE RECORDS SUMMARY | 2024-08-01 15:32 | XMS_ITS | Encounter Summary ---
Author Organization [facility] [place] [address] Care Team Providers Care Stores Clerk Name Role Phone Bj Alves MD Primary Care Provider [phone] Reason for Visit * Reason Comments Follow-up Encounter Details Date Type Department Care Team (Late st Contact Info) Description 12/25/2011 4:00 PM EDT Follow-Up [place] [phone] Rio Graves MD [facility] [place] [address] Cancer of base of tongue (Primary Dx) [...] - Inhaled Oxygen Concentration - - Weight 110.2 kg (243 lb) 12/25/2011 4:47 PM EDT Height 176.5 cm (5' 9.5) 12/25/2011 4:47 PM EDT Body Mass Index 35.37 12/25/2011 4:47 PM EDT documented in this encounter Progress Notes * Rio Graves MD - 12/25/2011 6:23 PM EDT Follow up for [id number] SCCa of the left BOT. S/p endoscopy. Case reviewed at [facility]. Has met with Riley Catalan and Martir. We discussed TORS resection with SND. Exposure was difficult but doable during his endoscopy. I didadvise him that we may not be able to achieve full exposure and complete resection through TORS. Additional exposure through the neck or possible mandibulotomy would be necessary. This would also require a flap if mandibulotomy was performed. Regardless, I have recommended that he undergo tracheostomy given his LIBERTY and difficult exposure. We discussed attempted TORS resection and then backing outif not possible. We discussed chemoradiation as first line therapy. He will give these issues some thought. In the meantime, in order to expedite, I will look for robotic time and get his case scheduled with the understanding that we can cancel if he decides to proceed with chemoradiation as first line treatment. Time spent in counseling and discussion of the above: 25 minutes documented in this encounter Plan of Treatment Upcoming Encounters Date Type Department Care Team (Late st Contact Info) Description 05/24/2025 11:00 AM EDT Office Visit Radiation Oncology at [address] [phone] Jesse Mcmahan MD [facility] [place] [address] documented as of this encounter Visit Diagnoses Diagnosis Cancer of base of tongue- Primary Malignant neoplasm of base of tongue documented in this encounter Care Teams Stores Clerk Relationship Specialty Start Date End Date Bj Alves MD [address] [place] [phone] PCP - General 06/25/10 04/02/23 documented as of this encounter
--- OUTSIDE RECORDS SUMMARY | 2024-08-01 15:32 | XMS_ITS | Encounter Summary ---
Author Organization [facility] [place] [address] Care Team Providers Care Truck Body Builder Apprentice Name Role Phone Bj Alves MD Primary Care Provider [phone] Encounter Details Date Type Department Care Team (Late Contact Info) Description 01/02/2012 Orders Only [place] [address] Jesse Mcmahan MD [facility] [place] [address] Cancer of base of tongue (Primary Dx) [...] Visit Radiation Oncology at [address] [address] Jesse Mcmahan MD [facility] [place] [address] documented as of this encounter Results * PET-CT skull base to mid thigh (01/16/2012 2:35 PM EDT) Anatomical Region Laterality Modality Other 01/16/2012 2:35 PM EDT Impressions 01/19/2012 10:47 PM EDT IMPRESSION: 1. ??The primary site of malignancy is seen in the left base of tongue/lingual tonsil region. ?? 2. ??A small focus of activity in the left pharyngeal tonsil region, which has a more equivocal appearance and could represent asymmetric lymphoid hyperplasia; however, an additional focus of malignancy is not excluded. ?? 3. ??Large necrotic chance metastasis in the left level II region. ?? 4. ??A small chance metastasis in the left level V region at the level of the hyoid. ?? 5. ??No evidence for distant sites of metastasis. ?? 6. ??Incidental finding of diffuse activity in both lobes of the thyroid, likely representing thyroiditis. ?? 7. ??Incidental finding of an infrarenal abdominal aortic aneurysm, unchanged compared to the prior study of 11/27/11. ?? Thank you for referring this patient to the [facility] PET Center. Narrative 01/19/2012 10:47 PM EDT PET/CT SCAN DATE OF EXAM: ??01/16/12. ?? PROCEDURE: Following IV injection of 50-ipunhh-0-deoxyglucose (FDG) and a standard uptake period, a non-contrast CT scan followed by a PET scan were acquired along the length of the body from the top of the head to mid thighs. ?? The non-contrast CT was used for anatomic localization and photon attenuation correction of the PET scan. Blood Glucose Level (mg/dL): ??110. ?? FDG Dose: ??16.5 mCi ??(0.15 mCi/kg to maximum of 18mCi). CORRELATIVE STUDIES: ??PET/CT, 11/27/11. ?? CLINICAL HISTORY: ??Left base of tongue cancer with level II chance metastasis. ?? This is a staging exam. ?? FINDINGS: Head/Neck: ??A 31 x 35 mm hypermetabolic necrotic-appearing chance mass is seen in the left level II region (axial image #73). ??An 11 mm hypermetabolic lymph node is present in the left level V region at the level of the hyoid, abutting the posterior margin of the left sternocleidomastoid muscle (axial image #79). ?? A small hypermetabolic focus is seen in the left base of tongue/lingual tonsil region (axial image #72). ??There is subtle asymmetrically increased activity in the left pharyngeal tonsil region, which is a more equivocal finding. ??There is mild diffusely increased activity in both lobes of the thyroid, likely representing a thyroiditis. ??Normal activity in all other regions. ?? Chest: ??Normal activity in all regions. ??A central line is seen with the tip terminating at the junction of the SVC and right atrium. ?? Abdomen/Pelvis: ??Normal activity in all regions. ??Again seen is a 37 mm infrarenal abdominal aortic aneurysm. ??There has been interval placement of a gastrostomy tube. ?? Skeleton: ??No significant osseous abnormalities are identified. ?? Procedure Note Murtaza Willis MD - 01/19/2012 PET/CT SCAN DATE OF EXAM: 01/16/12. PROCEDURE: Following IV injection of 75-mkxtcf-6-deoxyglucose (FDG) and a standard uptake period, a non-contrast CT scan followed by a PET scan were acquired along the length of the body from the top of the head to midthighs. The non-contrast CT was used for anatomic localization and photonattenuation correction of the PET scan. Blood Glucose Level (mg/dL): 110. FDG Dose: 16.5 mCi (0.15 mCi/kg to maximum of 18mCi). CORRELATIVE STUDIES: PET/CT, 11/27/11. CLINICAL HISTORY: Left base of tongue cancer with level II nodalmetastasis. This is a staging exam. FINDINGS: Head/Neck: A 31 x 35 mm hypermetabolic necrotic-appearing chance mass isseen in the left level II region (axial image #73). An 11 mm hypermetaboliclymph node is present in the left level V region at the level of the hyoid,abutting the posterior margin of the left sternocleidomastoid muscle (axial image#79). A small hypermetabolic focus is seen in the left base of tongue/lingualtonsil region (axial image #72). There is subtle asymmetrically increasedactivity in the left pharyngeal tonsil region, which is a more equivocal finding.There is mild diffusely increased activity in both lobes of the thyroid, likely representing a thyroiditis. Normal activity in all other regions. Chest: Normal activity in all regions. A central line is seen with thetip terminating at the junction of the SVC and right atrium. Abdomen/Pelvis: Normal activity in all regions. Again seen is a 37 mm infrarenal abdominal aortic aneurysm. There has been interval placementof a gastrostomy tube. Skeleton: No significant osseous abnormalities are identified. IMPRESSION IMPRESSION: 1. The primary site of malignancy is seen in the left base oftongue/lingual tonsil region. 2. A small focus of activity in the left pharyngeal tonsil region, whichhas a more equivocal appearance and could represent asymmetric lymphoidhyperplasia; however, an additional focus of malignancy is not excluded. 3. Large necrotic chance metastasis in the left level II region. 4. A small chance metastasis in the left level V region at the level ofthe hyoid. 5. No evidence for distant sites of metastasis. 6. Incidental finding of diffuse activity in both lobes of the thyroid,likely representing thyroiditis. 7. Incidental finding of an infrarenal abdominal aortic aneurysm,unchanged compared to the prior study of 11/27/11. Thank you for referring this patient to the [facility] PET Center. Jesse Mcmahan MD IMG PET ORDERABLES documented in this encounter Visit Diagnoses Diagnosis Cancer of base of tongue- Primary Malignant neoplasm of base of tongue documented in this encounter Care Teams Truck Body Builder Apprentice Relationship Specialty Start Date End Date Bj Alves MD [address] [place] [id number] PCP - General 06/25/10 04/02/23 documented as of this encounter
--- OUTSIDE RECORDS SUMMARY | 2024-08-01 15:32 | XMS_ITS | Encounter Summary ---
Author Organization [facility] Address [address] [place] [address] Care Team Providers Care Grain Operations Manager Name Role Phone Bj Alves MD Primary Care Provider [phone] Encounter Details Date Type Department Care Team (Late st Contact Info) Description 04/25/2022 Lab Requisition [facility] Pathology & Laboratory Medicine - [facility] [address] [place], [place] [address] Outr Resulting Lab, Provider Social History Tobacco [...] on filedocumented in this encounter Care Teams Grain Operations Manager Relationship Specialty Start Date End Date Bj Alves MD [address] [place] [address] PCP - General 02/28/09 documented as of this encounter
--- OUTSIDE RECORDS SUMMARY | 2024-08-01 15:32 | XMS_ITS | Encounter Summary ---
[place] [address] Care Team Providers Care [employer] Resource Teacher Name Role Phone Bj lAves MD Primary Care Provider [phone] Reason for Visit * Reason Comments Follow-up new patient workup Encounter Details Date Type Department Care Team (Late st Contact Info) Description 12/17/2011 2:00 PM EDT Office Visit Hematology [place] [id number] Butch Catalan MD [address] [place] [address] [place] [address] Claustrophobia; Cancer of base of tongue; Ulnar neuropathy; Cigarette smoker; Anxiety; Psoriasis; Sleep apnea; Thalassemia minor Discharge Disposition: Home [...] Sign Reading Time Taken Comments Blood Pressure 144/92 12/17/2011 1:55 PM EDT Pulse 67 12/17/2011 1:55 PM EDT Temperature 36.9 ??C (98.4 ??F) 12/17/2011 1:55 PM ED T Respiratory Rate 20 12/17/2011 1:55 PM EDT Oxygen Saturation 98% 12/17/2011 1:55 PM EDT Inhaled Oxygen Concentration - - Weight 110.1 kg (242 lb 12.8 oz) 12/17/2011 1:55 PM EDT Height 176.6 cm (5' 9.53) 12/17/2011 1:55 PM ED T Body Mass Index 35.31 12/17/2011 1:55 PM EDT documented in this encounter Progress Notes * Butch Catalan MD - 12/17/2011 2:42 PM EDT Images from the original note were not included. Head and Neck Medical Oncology New Patient Consultation Patient Active Problem List Diagnoses ??? Cancer [...] ??? Back pain, chronic ??? Thalassemia minor History: Consultation requested by Dr. Graves for discussion of role of chemotherapy in mgmtn of BOT +/- tonsil cancer. Salvador Wyatt presented with sore throat and low L neck node in November 2011. Long h/o sore throatsof similar nature. Abx somewhat helpful for ST and lower neck node, but higher neck mass noted to grow. Seen by Dr. Parrish. Exam c/w L tonsil tumor; FNA of neck mass (+) for squamous cell Ca. Referred to Dr. Graves 12/04; EUA performed 12/11. Finding of ulcerated L BOT mass and firm suspicious L tonsil noted, appearing to be separate tumors, but Bx's only demonstrated SCCa in the tongue base mass. Mouth/tongue geometry made visualization and intubation difficult; he notes some dental problems po st-procedure. Dysphagia: minimal Odynophagia: Moderate, overall unchanged Weight loss: Trying to lose; ~14 lbs, anxiety >> odynophagia Diet modifications: Nuts bother throat Neck symptoms: Mass only, trivial discomfort Referred pain: none Metastatic symptoms: none Functional problems: none Coping/emotional issues: Anxious re: Dx. Very caustrophobic X many years; could not get through H/N portion of PET/CT. Can tolerate procedures with medication + time to prepare. Dental care: UTD; dentist has noted bone loss; last checkup 2 weeks ago, no major problems identified; tenderness of R upper incisor and chipping of L upper post-anesthesia Medical issues: Psoriasis is not new. Some diffuse small joint stiffness and fullness around MCPs; Dx of psoriatic arthritis has been entertained but Rheum consult put on hold d/t Ca Dx. 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 Acid reflux ??? Thyroid dysfunction ??? Arthritis ??? Psoriasis History Social History ??? 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 Lives near [facility] with , 10yo daughter, 2 horses, 2 dogs. Born [place] parents; moved to [facility] as a boy. Family History Problem Relation Age of Onset ??? Heart Failure Mother ??? Diabetes ??? Heart Failure Father ??? Diabetes Father ??? Diabetes Mother Current outpatient prescriptions ordered prior to encounter Medication Sig Dispense Refill ??? OXYcodone (ROXICODONE) 5 mg/5 mL solution Take 5 mLs by mouth every 4 hours as needed for Pain.250 mL 0 ??? omeprazole (PRILOSEC) 20 mg capsule Take [...] % ointment Apply topically 2 times daily. Filed Vitals: 12/17/11 1355 BP: 144/92 Pulse: 67 Temp: 36.9 ??C (98.4 ??F) TempSrc: Oral Resp: 20 Height: 176.6 cm (5' 9.53) Weight: 110.133 kg (242 lb 12.8 oz) SpO2: 98% Body surface area is 2.32 meters squared. General appearance: NAD, in good spirits but gets teary-eyed during discussion of Ca Dx. Nutritional status: Large-framed, moderately obese Face: normal Nasal: clear Ear: clear Skin: Multiple psoriatic plaques on arms, forearms; nails intact Oral: Bulky tongue, difficult to see; L tonsil enlarged, firm to palpation. Tongue mobility normal.No halitosis Dentition: Extensive gnosticism Neck: Thyroid normal Right: No palpable adenopathy Left: Mobile cystic zone II mass ~4 X 4.5 cm, nontender Peripheral nodes: nil Chest: clear Heart: RRR, normal tones Abdomen: Benign, no HSM Extremties: no clubbing or edema; minimal synovial thickening MCP 'hollows' Neurologic: normal Cranial nerves: normal Reflexes: 2+ Laryngoscopy: Not repeated today. Radiographs: I personally reviewed images: CT 12/09/2011: PET/CT of 11/27/2011: incomplete above clavicles; negative below. Labs: None recent. Outside studies show normal chems; CBC shows microcytosis without anemia, c/w Thalassemia trait. Pathology: ---Pathologic Diagnosis--- A - Cyst, left vallecula Benign squamous lined cyst B - Left tongue base Invasive squamous cell carcinoma, intermediate grade C - Left tonsil negative for malignancy Impression: ?? L tonsil clinically suspicious for cancer, but initial Bx negative, and it may well be a false negative. ?? L BOT clinically suspicious and confirmed as SCCa, smoking-associated, appears to be cT2 N2a disease. A few other nodes are seen by CT in L neck but these are to my eyes equivocal. ?? Neck adenopathy is moderate in size but without obvious clinical or radiographic signs of extracapsular spread. ?? Mouth/throat anatomy makes transoral surgery potentially difficult. ?? Psoriasis, ?psoriatic arthritis. Plan: 1. Discuss with Dr. Graves. Repeat Bx of tonsil may be in order. Oncologically, transoral robotic surgery + neck dissection + adjuvant RT (+/- chemo, depending on final path) might be the least 'toxic' curative-intent strategy. However his anatomy may interfere. Primary chemoRT would get around t his issue but might carry more neck and throat toxicity, and increase the chance of persistent neckdisease necessitating neck dissection. But this might still be less toxic than non-robotic open resection. 2. My favored strategy: diagnostic tonsillectomy + L neck dissection, followed by RT to BOT +/- tonsil and elective L neck RT. 3. Discussed the situation and the several 'correct' options that the H/N team will be discussing. Talked about short- and long-term chemo and RT toxicities in broad brushstrokes. Stressed that this cancer appears potentially curable, and that our deliberations are to find the least toxic pathway to this goal. 4. If chemo ultimately indicated, I would suggest weekly cisplatin. 5. He will call his dentist to discuss fitting for fluoride trays. 6. Set to meet again with Dr. Graves and to meet Dr. Mcmahan on 12/24. 7. Postpone Rheumatology eval until after cancer treatment; most disease- modifying agents would have to be curtailed during cancer therapy and the joints don't bother much now. I am grateful for the opportunity to consult with this patient. Followup: pending discussion/decisions above. Butch Catalan MD, FACP Hematology/Oncology Section [phone] documented in this encounter Plan of Treatment Upcoming Encounters Date Type Department Care Team (Late st Contact Info) Description 05/24/2025 11:00 AM EDT Office Visit Radiation Oncology at [address] [phone] Jesse Mcmahan MD [facility] DR [place] [address] documented as of this encounter Visit Diagnoses Diagnosis Claustrophobia Other isolated or specific phobias Cancer of base of tongue Malignant neoplasm of base of tongue Ulnar neuropathy Lesion of ulnar nerve Cigarette smoker Tobacco use disorder Anxiety Anxiety state, unspecified Psoriasis Other psoriasis Sleep apnea Unspecified sleep apnea Thalassemia minor Other thalassemia documented in this encounter Care Teams [employer] Resource Teacher Relationship Specialty Start Date End Date Bj Alves MD [address] [place] [phone] PCP - General 06/25/10 04/02/23 documented as of this encounter
--- OUTSIDE RECORDS SUMMARY | 2024-08-01 15:32 | XMS_ITS | Encounter Summary ---
Author Organization [facility] Address [address] [place] [address] Care Team Providers Care Loading Dock Helper Name Role Phone Bj Alves MD Primary Care Provider [phone] Encounter Details Date Type Department Care Team (Late st Contact Info) Description 01/25/2020 Lab Requisition [facility] Pathology & Laboratory Medicine - [facility] [address] [place], [place] [id number] Outr Resulting Lab, Provider Social History Tobacco [...] Procedure Name Priority Date/Time Associated Diagnosis Comments DO NOT ORDER STANDALONE - BROAD COVID TEST Today 01/25/2020 11:07 EDT COVID-19 TESTING Routine 01/25/2020 11:0 7 EDT documented in this encounter Results * DO NOT ORDER STANDALONE - BROAD COVID TEST (01/25/2020 11:07 EDT) COVID-19 rt-PCR Result NEGATIVE Negative 01/27/2020 2:18 EDT [facility] Comment: 2019-novel Coronavirus (2019-nCoV) not detected by the qRT-PCR assay. Consider testing for other respiratory viruses or re-collecting for 2019-nCoV testing. Note: Optimum timing for peak viral levels during infections caused by 2019-nCoV have not been determined. Collection of multiple specimens from the same patient may be necessary to detect the virus. Limitations Positive results are indicative of active infection with SARS-CoV-2 but do not rule out bacterial infection or co-infection with other viruses. The agent detected may not be the definite cause of disease. In addition, detection of viral RNA may not indicate the presence of infectious virus or that SARS-CoV-2 is the causative agent for clinical symptoms. Negative results do not preclude SARS-CoV-2 infection and should not be used as the sole basis for patient management decisions. Negative results must be combined with clinical observations, patient history, and epidemiological information. False negative results may also occur if amplification inhibitors are present in the specimen or if inadequate numbers of organisms are present in the specimen. Optimum specimen types and timing for peak viral levels during infections caused by SARS-CoV-2 have not been fully determined. Collection of multiple specimens (types and time points) from the same patient may be necessary to detect the virus. The test was validated for use with upper respiratory specimens obtained via nasopharyngeal or oropharyngeal swabs in VTM, UTM, M4, M5, M6, saline, and MTM media. The performance of this test has not been established for other specimens. Specimens collected using other FDA recommended Specimen Collection Materials listed in the FDA COVID-19 Diagnostic [employer] communication (October 27, 2019) are processed with the caveat that they were not all validated for use with this test and the result must be interpreted in this context. Furthermore, a false negative results may occur if a specimen is improperly collected, transported or handled. If the virus mutates in the RT-PCR target region, SARS-CoV-2 may not be detected or may be detected less predictably. Inhibitors or other types of interference may produce a false negative result. An interference study evaluating the effect of common cold medications was not performed. This test is not FDA-cleared but its performance characteristics were established by our CLIA-certified, CAP-accredited, high complexity laboratory in accordance with CLIA regulations, [employer] (CAP) guidelines (Oct 20, 2019), and FDA guidance (Oct 01, 2019). This test is only for use under the Food and Drug Administration's Emergency Use Authorization. Swab ENTIRE NASOPHARYNX / Unknown 01/25/2020 11:07 EDT 01/25/2020 21:34 EDT us Provider Outr Resulting Lab MICROBIOLOGY - GENER AL ORDERABLES Final Result [facility] [place], [place] * COVID-19 TESTING (01/25/2020 11:07 EDT) COVID-19 rt-PCR Result NEGATIVE Negative 01/27/2020 6:34 EDT [facility] Comment: 2019-novel Coronavirus (2019-nCoV) not detected by the qRT-PCR assay. Consider testing for other respiratory viruses or re-collecting for 2019-nCoV testing. Note: Optimum timing for peak viral levels during infections caused by 2019-nCoV have not been determined. Collection of multiple specimens from the same patient may be necessary to detect the virus. Limitations Positive results are indicative of active infection with SARS-CoV-2 but do not rule out bacterial infection or co-infection with other viruses. The agent detected may not be the definite cause of disease. In addition, detection of viral RNA may not indicate the presence of infectious virus or that SARS-CoV-2 is the causative agent for clinical symptoms. Negative results do not preclude SARS-CoV-2 infection and should not be used as the sole basis for patient management decisions. Negative results must be combined with clinical observations, patient history, and epidemiological information. False negative results may also occur if amplification inhibitors are present in the specimen or if inadequate numbers of organisms are present in the specimen. Optimum specimen types and timing for peak viral levels during infections caused by SARS-CoV-2 have not been fully determined. Collection of multiple specimens (types and time points) from the same patient may be necessary to detect the virus. The test was validated for use with upper respiratory specimens obtained via nasopharyngeal or oropharyngeal swabs in VTM, UTM, M4, M5, M6, saline, and MTM media. The performance of this test has not been established for other specimens. Specimens collected using other FDA recommended Specimen Collection Materials listed in the FDA COVID-19 [employer] communication (October 27, 2019) are processed with the caveat that they were not all validated for use with this test and the result must be interpreted in this context. Furthermore, a false negative results may occur if a specimen is improperly collected, transported or handled. If the virus mutates in the RT-PCR target region, SARS-CoV-2 may not be detected or may be detected less predictably. Inhibitors or other types of interference may produce a false negative result. An interference study evaluating the effect of common cold medications was not performed. This test is not FDA-cleared but its performance characteristics were established by our CLIA-certified, CAP-accredited, high complexity laboratory in accordance with CLIA regulations, [employer] (CAP) guidelines (Oct 20, 2019), and FDA guidance (Oct 01, 2019). This test is only for use under the Food and Drug Administration's Emergency Use Authorization. Performing Lab [facility] 01/27/2020 6:34 EDT [facility] Swab 01/25/2020 11:0 7 EDT 01/25/2020 21:34 EDT us Provider Outr Resulting Lab MICROBIOLOGY - GENER AL ORDERABLES Final Result [facility] [address] [place] [address] [facility] [place] documented in this encounter Visit Diagnoses Not on filedocumented in this encounter Care Teams Loading Dock Helper Relationship Specialty Start Date End Date Bj Alves MD [address] [place] [address] PCP - General 02/28/09 documented as of this encounter
--- OUTSIDE RECORDS SUMMARY | 2024-08-01 15:32 | XMS_ITS | Encounter Summary ---
Author Organization [facility] Address [address] [place] [address] Care Team Providers Care Sales Representative Health Insurance Name Role Phone Bj Alves MD Primary Care Provider [phone] Reason for Visit * Reason Comments Other Encounter Details Date Type Department Care Team ([facility] st Contact Info) Description 04/16/2021 Refill [facility] Rheumatology [address] [place] [id number] Tanner Frost MD [facility] Rheumatology [address] [place] [address] [place] [phone] Other Social History Tobacco Use Types Packs/Day [...] on filedocumented in this encounter Care Teams Sales Representative Health Insurance Relationship Specialty Start Date End Date Bj Alves MD [address] [place] [address] PCP - General 02/28/09 documented as of this encounter
--- OUTSIDE RECORDS SUMMARY | 2024-08-01 15:32 | XMS_ITS | Encounter Summary ---
Author Organization [facility] Address [address] [place] [address] Care Team Providers Care Blue Crabber Name Role Phone Bj Alves MD Primary Care Provider [phone] Encounter Details Date Type Department Care Team (Late st Contact Info) Description 03/23/2020 Lab Requisition [facility] Pathology & Laboratory Medicine - [facility] [address], [place] [address] Outr Resulting Lab, Provider Social History Tobacco Use Types Packs/Day Years Used Date Smoking Tobacco: Never Assessed Interpersonal Safety Answer Date Record ed Physically [...] ORDER STANDALONE - BROAD COVID TEST Today 03/23/2020 9:44 EDT COVID-19 TESTING Routine 03/23/2020 9:44 EDT documented in this encounter Results * DO NOT ORDER STANDALONE - BROAD COVID TEST (03/23/2020 9:44 EDT) COVID-19 rt-PCR Result NEGATIVE Negative 03/24/2020 20:27 EDT [facility] Comment: 2019-novel Coronavirus (2019-nCoV) not [...] in accordance with CLIA regulations, [employer] (CAP) guidelines (Oct 20, 2019), and FDA guidance (Oct 01, 2019). This test is only for use under the Food and Drug Administration's Emergency Use Authorization. Swab ENTIRE NASOPHARYNX / Unknown 03/23/2020 9:44 EDT 03/23/2020 15:52 EDT us Provider Outr Resulting Lab MICROBIOLOGY - GENER AL ORDERABLES Final Result [facility] [place] * COVID-19 TESTING (03/23/2020 9:44 EDT) COVID-19 rt-PCR Result NEGATIVE Negative 03/24/2020 23:31 EDT [facility] Comment: 2019-novel Coronavirus (2019-nCoV) not detected [...] in accordance with CLIA regulations, [employer]ologists (CAP) guidelines (Oct 20, 2019), and FDA guidance (Oct 01, 2019). This test is only for use under the Food and Drug Administration's Emergency Use Authorization. Performing Lab [employer] 03/24/2020 23:31 EDT [facility] Swab 03/23/2020 9:44 EDT 03/23/2020 15:52 EDT us Provider Outr Resulting Lab MICROBIOLOGY - GENER AL ORDERABLES Final Result [facility] [address] [place] [address] [facility] [place] documented in this encounter Visit Diagnoses Not on filedocumented in this encounter Care Teams Blue Crabber Relationship Specialty Start Date End Date Bj lAves MD [address] [place] [address] PCP - General 02/28/09 documented as of this encounter
--- OUTSIDE RECORDS SUMMARY | 2024-08-01 15:32 | XMS_ITS | Encounter Summary ---
Author Organization [facility] [place] [address] Care Team Providers Care Side Laster Staple Name Role Phone Bj Alves MD Primary Care Provider [phone] Encounter Details Date Type Department Care Team (Late Contact Info) Description 12/08/2011 Orders [place] [phone] Annamarie Benitez RN Pre-procedure lab exam (Primary Dx) Social History Tobacco Use Types [...] EDT Office Visit Radiation Oncology at [address] [phone] Jesse Mcmahan MD [facility] [place] [address] documented as of this encounter Visit Diagnoses Diagnosis Pre-procedure lab exam- Primary Pre-procedural laboratory examination documented in this encounter Care Teams Side Laster Staple Relationship Specialty Start Date End Date Bj Alves MD [address] [place] [phone] PCP - General 06/25/10 04/02/23 documented as of this encounter
--- OUTSIDE RECORDS SUMMARY | 2024-08-01 15:32 | XMS_ITS | Encounter Summary ---
Author Organization [facility] Address [address] [place] [address] Care Team Providers Care Utility Clerk Name Role Phone Bj Alves MD Primary Care Provider [phone] Reason for Visit * Reason Comments Other Encounter Details Date Type Department Care Team ([facility] st Contact Info) Description 06/17/2021 Refill [facility] Rheumatology [address] [place] [phone] Tanner Frost MD [facility] Rheumatology [address] [place] [address] [place] [address] Other Social History Tobacco Use Types Packs/Day [...] on filedocumented in this encounter Care Teams Utility Clerk Relationship Specialty Start Date End Date Bj Alves MD [address] [place] [address] PCP - General 02/28/09 documented as of this encounter
--- OUTSIDE RECORDS SUMMARY | 2024-08-01 15:32 | XMS_ITS | Encounter Summary ---
Author Organization [facility] [place] [address] Care Team Providers Care Pie Filler Name Role Phone Bj Alves MD Primary Care Provider Encounter Details Date Type Department Care Team (Late Contact Info) Description 12/09/2011 Orders [place] [address] Rio Graves MD [facility] [place] [address] Social History Tobacco Use Types Packs/Day Years [...] EDT Office Visit Radiation Oncology at [address] [phone] Jesse Mcmahan MD [facility] [place] [address] documented as of this encounter Procedures Procedure Name Priority Date/Time Associated Diagnosis Comments FILM LIBRARY STORAGE ONLY CT SPINE Routine 12/09/2011 1:52 PM EDT documented in this encounter Results * FILM LIBRARY- STORAGE ONLY CT SPINE (12/09/2011 1:52 PM EDT) 12/09/2011 1:52 PM EDT Narrative RAD - 01/27/2014 1:33 AM EDT This is a non-reportable exam. Procedure Note Edgard Alcantar - 01/27/2014 This is a non-reportable exam. Rio Graves MD IMG FILM LIBRARY O RDERABLES RAD [address] [place] [address] documented in this encounter Visit Diagnoses Not on filedocumented in this encounter Care Teams Pie Filler Relationship Specialty Start Date End Date Bj Alves MD [address] [place] [phone] PCP - General 06/25/10 04/02/23 documented as of this encounter
--- OUTSIDE RECORDS SUMMARY | 2024-08-01 15:32 | XMS_ITS | Encounter Summary ---
Author Organization [facility] Address [address] [place] [address] Care Team Providers Care Marker Machine Name Role Phone Bj Alves MD Primary Care Provider [phone] Reason for Visit * Reason Comments Follow-up Psoriatic arthritis Encounter Details Date Type Department Care Team (Late st Contact Info) Description 04/17/2020 8:00 EDT Telemedicine [facility] Rheumatology [address] [place] [id number] Tanner Frost MD [facility] Rheumatology [address] [place] [address] [place] [phone] PSA (psoriatic arthritis) ([facility]) (Primary Dx); Psoriasis with arthropathy ([facility]) Social History Tobacco Use Types Packs/Day Years [...] 9:25 EDT documented as of this encounter Progress Notes * Tanner Frost MD - 04/17/2020 0800 EDT [facility] Rheumatology Chief Complaint Patient presents with ??? Follow-up Psoriatic arthritis This is a scheduled follow-up appointment after initial evaluation. Please refer to my initial evaluation for details of presentation. 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 He is quite active in practicing [employer]. He attributed joint pains in ankles and [...] He was referred to Dr. Garcia in [place] and was seeing her approximately every 3 [...] Past Medical History: Diagnosis Date ??? Cancer ([facility]) 2012 Throat tx with chemo and radiation [...] 3.3 x 5.2 cm. 11/27/[address] [facility]. Due to severe claustrophobia only performed from the lower chest to mid thighs. No distant metastases identified. 12/12/2011 EUA with triple endoscopy and biopsy. Enrolled on RTOG 1016 randomized to cetuximab arm. Received 70 Gy completed 04/06/2012. Most recent follow-up with Dr. Mcmahan at [facility] 06/08/2019. Addressed the following ongoing symptoms:Dysphagia, rare or done aphasia, stable trismus, moderate dysgeusia and moderate xerostomia, painful neck and shoulder pain left more than right associated with activity, ulnar neuropathy, intermittent tinnitus. Clinical presentation is consistent with psoriatic arthritis. Currently on Otezla which is not addressing his plaque psoriasis on the elbows or the left upper leg and is not really doing anything forthe inflammation he is experiencing in both ankles and MTPs. It did not appear that combination of O tezla and methotrexate had any significant therapeutic effect on his joint inflammation. He had been evaluated for possibility of gout given the location of the inflammatory manifestations. He was treated acutely for gout without much response. He was additionally on allopurinol for period of time.His uric acid at one point was 9.5. Most recently 8.9. I do not know the full history of his gout evaluation and will be obtaining records from Dr. Garcia to fill in these blanks. Joint inflammationhas not responded to monotherapy with Otezla, monotherapy with methotrexate though at low dose of 10 mg weekly, or combined therapy with Otezla and methotrexate. Both Rheumatology and Radiation Oncology have been reluctant to consider augmenting therapy with a biologic DMARD. By his report radiation oncology has seemed to be more receptive to this idea though my review of last clinic note did notprovide any opinion on this matter. I think it would be helpful to discuss directly with Dr. Mcmahan his opinion about use of this level of immunosuppressant therapy with his diagnosis of squamous cell cancer. 04-17-2020 Interval events: This is a scheduled 2-week interval telephone visit with Salvador. Unfortunately he did not get his foot x-rays as we had recommended. Radiation oncology notes from [facility] reviewed from Dr. Mcmahan Review of Systems: Essentially no change in his review of systems Constitutional: No fevers. HEENT: He has dry mouth and dry eyes. Recent oral examination without evidence of disease recurrence. He has had issues with [...] bruising. Musculoskeletal joint pain as in HPI. Neurologic: He does have trismus. No difficulty with cognition. 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 Genitourinary: No dysuria or hematuria. He has been diagnosed with BPH. Physical Examination: There were no vitals taken for this visit. This was a telephone visit No physical examination as this was a telephone visit. He was alert and oriented. Appropriate speech thought and content. No distress. Labs: 11/08/2019: TSH 15.30, previously 23.20 August [...] 03/23/2020 NEGATIVE ??? Performing Lab 03/23/2020 [facility] ??? COVID-19 Result 03/23/2020 NEGATIVE Lab Requisition on 01/25/2020 Component Date Value ??? COVID-19 Result 01/25/2020 NEGATIVE ??? Performing Lab 01/25/2020 [facility] ??? COVID-19 Result 01/25/2020 NEGATIVE Diagnosis / Assessment: 1. Psoriasis with arthropathy ([facility]) At this point we need to determine whether or not we can manage his psoriatic arthritis with monotherapy with methotrexate. I think is most reasonable to try him on this strategy in combination with Otezla and try to push the subcutaneously administered dose of methotrexate up to 20 mg rather than s tarting a biologic DMARD. I will be in touch with Dr. Mcmahan to review his opinion on this matter.Also I have recommended that Salvador get his x-rays done as soon as possible to determine if there are changes that are more consistent with psoriatic arthritis or with gouty arthropathy. Recommendations/Evaluation: This visit was conducted by telephone. I spent a total of 10 minutes in discussion with the patientas described in the progress note. Tanner Frost MD documented in this encounter Plan of Treatment Not on file documented as of this encounter Visit Diagnoses Diagnosis PSA (psoriatic arthritis) ([facility])- Primary Psoriatic arthropathy Psoriasis with arthropathy ([facility]) Psoriatic arthropathy documented in this encounter Care Teams Marker Machine Relationship Specialty Start Date End Date Bj Alves MD [address] [place] [address] PCP - General 02/28/09 documented as of this encounter
--- OUTSIDE RECORDS SUMMARY | 2024-08-01 15:32 | XMS_ITS | Encounter Summary ---
Author Organization [facility] Address [address] [place] [address] Care Team Providers Care Prescription Benefit Specialist Name Role Phone Bj Alves MD Primary Care Provider [phone] Reason for Visit * Reason Comments Other Encounter Details Date Type Department Care Team ([facility] st Contact Info) Description 10/18/2021 Refill [facility] Rheumatology [address] [place] [address] [phone] Tanner Frost MD [facility] Rheumatology [address] [place] [address] [place] [phone] Other Social History Tobacco Use Types Packs/Day [...] on filedocumented in this encounter Care Teams Prescription Benefit Specialist Relationship Specialty Start Date End Date Bj Alves MD [address] [place] [address] PCP - General 02/28/09 documented as of this encounter
--- OUTSIDE RECORDS SUMMARY | 2024-08-01 15:32 | XMS_ITS | Encounter Summary ---
Author Organization [facility] Address [facility] [place] [address] Care Team Providers Care Cosmetology Instructor Name Role Phone Bj Alves MD Primary Care Provider [phone] Reason for Visit * Reason Comments Neck Mass had fna lt neck node Encounter Details Date Type Department Care Team (Late st Contact Info) Description 11/27/2011 3:40 PM EDT Office [place] [address] CLINIC, Rio Gipson MD [facility] [place] [address] Head and neck cancer (Primary Dx); Tonsil cancer Discharge Disposition: Home Social History Tobacco [...] Sign Reading Time Taken Comments Blood Pressure 153/85 11/27/2011 3:26 PM EDT Pulse 90 11/27/2011 3:26 PM EDT Temperature - - Respiratory Rate 24 11/27/2011 3:26 PM EDT Oxygen Saturation - - Inhaled Oxygen Concentration - - Weight 110.9 kg (244 lb 9.6 oz) 11/27/2011 3:26 PM EDT Height 175.3 cm (5' 9) 11/27/2011 3:26 PM EDT Body Mass Index 36.12 11/27/2011 3:26 PM EDT documented in this encounter Progress Notes * Rio Graves MD - 12/04/2011 7:36 PM EDT [facility] Head and Neck Tumor Clinic New Patient Consultation Consult requested by: Skyler Parrish CHIEF COMPLAINT Tonsil cancer HISTORY History was obtained through review of the relevant records, discussion with referring physician and/or patient interview. This is a 56 y.o. male had developed sore throat in early November 2011. Treated initially with antibiotics and sore throat symptoms mostly resolved. He then noticed a lymph node in the left neck. Was seen by Dr. Parrish who performed a fine needle aspiration of this node c/w metastatic SCCa. Exam suggestive of tonsil primary, left side. Head and neck symptom survey: Dysphagia: n Odynophagia: mild Otalgia: n Weight loss: n Trismus: n Adenopathy: y Nerve deficit: n Voice change: n Hemoptysis: n Loose dentition: n Dry mouth: n Taste disturbance: n PROBLEM LIST Patient Active Problem List Diagnoses Date Noted ??? Tonsil cancer [146.0AD] 12/04/2011 PAST HISTORY Past Medical History Diagnosis Date ??? Acid reflux ??? Thyroid dysfunction ??? Arthritis ??? Psoriasis Past Surgical History Procedure Date ??? Carpal tunnel release rt FAMILY HISTORY Family History Problem Relation Age of Onset ??? Heart Failure Mother ??? Diabetes ??? Heart Failure Father ??? Diabetes Father ??? Diabetes Mother SOCIAL HISTORY History Substance Use Topics ??? Smoking status: Former Smoker -- 1.0 packs/day for 38 years Quit date: 08/06/2011 ??? Smokeless tobacco: Not on file ??? Alcohol Use: Yes rarely one glass of wine occasionally ALLERGIES No Known Allergies MEDICATIONS Current outpatient prescriptions Medication Sig Dispense Refill ??? omeprazole (PRILOSEC) 20 mg capsule Take [...] % ointment Apply topically 2 times daily. ROS: Pertinent positive findings discussed above. No other findings on review of constitutional visual, cardiovascular, respiratory, gastrointestinal, genitourinary, musculoskeletal, dermatologic, neurological, psychiatric, endocrine, hematologic or immunologic systems. EXAM: Vitals: Blood pressure 153/85, pulse 90, resp. rate 24, height 175.3 cm (5' 9), weight 110.95 kg (244 lb 9.6 oz). General: No acute distress Face: Normocephalic and atraumatic Eyes: Extraocular movement is full and intact. No dysconjugate gaze. No evidence of nystagmus. Periocular structures and conjunctiva healthy without lesions. Ears: Normal exam of the external ear, canal and tympanic membrane. Nose: Normal external exam. Normal exam of the septum and turbinates. Mouth: Lips and gingiva pink, moist, without lesions. Full dentition. Tongue and floor of mouth soft without lesions or masses. Hard palate without lesions. Pharynx: Mallampati 3/4, prominent tongue, tumor in the left tonsil extending to the BOT. Salivary: Normal exam of the parotid and submandibular glands. Neck: Level II node, mobile, 2.5 cm Resp: Breathing comfortably without stridor or retractions. Normal respirations. CV: Normal carotid pulses. MSK: Normal neck range of motion, no trismus. Skin: Skin survey of the head and neck is without concerning lesion. Neurologic: Cranial nerves II-XII intact and symmetric. AxOx3, responds appropriately to questions. Psych: Normal mood and affect. PROCEDURE NOTE: Flexible Fiberoptic Laryngoscopy: Topical anesthetic and decongestant applied to the nasal cavity. Patient tolerated the procedure well without any complications. Nasal Cavity: normal Nasopharynx: normal Oropharynx: Tumor along the left tonsil and into the BOT Larynx: Vallecular cyst Hypopharynx: normal REVIEW OF IMAGING STUDIES: PET/CT reviewed. Patient became claustrophobic so the head and neck PET was not done. No distal mets. On non-contrasted CT, the primary can be visualized in the tonsil/BOT. Adenopathy left level II. ASSESSMENT/RECOMMENDATIONS: T2N1M0 SCCa of the left tonsil/BOT Will arrange staging endoscopy for further staging. Check dedicated CT neck with contrast. This will help determine if surgical resection is feasible. Post staging endoscopy will meet with the rest of the HN team to discuss treatment options (TORS vschemorads) I appreciate the opportunity to be involved in Mr. Wyatt's care. Please do not hesitate to contact me at [email or web address], (office), (page cloth dye range operator) or [phone] (mobile) if you have any questions. RIO GRAVES MD 12/04/2011 documented in this encounter Plan of Treatment Upcoming Encounters Date Type Department Care Team (Late st Contact Info) Description 05/24/2025 11:00 AM EDT Office Visit Radiation Oncology at [address] [phone] Jesse Mcmahan MD [facility] [place] [address] documented as of this encounter Procedures Procedure Name Priority Date/Time Associated Diagnosis Comments LARYNGOSCOPY, MICROSCOPE, WITH BIOPSY Routine 12/01/2011 10:35 AM EDT Head and neck cancer documented in this encounter Visit Diagnoses Diagnosis Head and neck cancer- Primary Malignant neoplasm of head, face, and neck Tonsil cancer Malignant neoplasm of tonsil documented in this encounter Care Teams Cosmetology Instructor Relationship Specialty Start Date End Date Bj Alves MD [address] [place] [phone] PCP - General 06/25/10 04/02/23 documented as of this encounter
--- OUTSIDE RECORDS SUMMARY | 2024-08-01 15:32 | XMS_ITS | Referral Summary ---
Author Organization [facility] Address [address] [place] [address] Care Team Providers Care Electro Optical Engineer Name Role Phone Bj Alves MD Primary Care Provider [phone] Allergies No known active allergies Medications Fenofibrate 54 mg Tab Take 54 mg by mouth daily. Active fluticasone (FLONASE) 50 mcg/Actuation nasal spray 1 Holiday by Nasal route as needed. Active betamethasone dipropionate (DIPROLENE) 0.05 % ointment Apply 0.05 Tubes topically as needed. Active Multivitamins with Minerals Tab Take 1 Tab by mouth daily. Active amlodipine (NORVASC) 10 mg tablet Take 10 mg by mouth daily. Active apremilast (OTEZLA) 30 mg tablet Take 30 mg by mouth 2 times daily. Active celecoxib (CELEBREX) 100 mg capsule Take 100 mg by mouth daily. Active Active Problems Problem Noted Date Diagnosed Date Benign prostatic hyperplasia with lower urinary tract symptoms 01/27/2019 Depression 01/27/2019 AAA (abdominal aortic aneurysm) without rupture (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 1 PPD x 38 yrs. Quit 08/2011. Developed odynophagia early 11/2011, abx did not improve, . Referred to ENT. He does note some coughing in the morning ove the past year. Stagin12/09/11 CT H&N with contrast ([facility]): Mixed attenuation mass with lare low density areas suggesting necrotic change present deep to anterior aspect L SCM. Mass smoothly marginated, max 3.3 x 5.2 cm. 11/27/11 PET-CT ([facility]): Despite premedication, severe claustrophobia allowed [...] cetuximab arm. Received 70 Gy completed 04/06/12 Social History Tobacco Use Types Packs/Day Years Used Date Smoking Tobacco: Former Smokeless Tobacco: Never Interpersonal Safety Answer Date Record ed Physically Hurt Never 03/04/2020 Verbally Threaten Not on file 03/04/2020 Sex and Gender Information Value Date Recorded Sex Assigned at Not on file Legal Sex Male 17:43 EST Gender Identity Male 03/26/2020 15:17 EDT Sexual Orientation Not on file Last Filed Vital Signs Vital Sign Reading Time Taken Comments Blood Pressure 122/80 03/29/2020 0930 EDT Pulse 76 04/19/2009 1315 EDT Temperature 35.6 ??C (96 ??F) 03/29/2020 0930 EDT Respiratory Rate 12 04/19/2009 1315 EDT Oxygen Saturation 99% 04/19/2009 1315 EDT Inhaled Oxygen Concentration - - Weight 95.3 kg (210 lb) 03/29/2020 0930 EDT Height 177.8 cm (5' 10) 04/12/2009 1140 EDT Body Mass Index - - Plan of Treatment Not on file Insurance [address] [address] [place] [address] MEDICARE [employer] MEDICARE Care Teams Electro Optical Engineer Relationship Specialty Start Date End Date Bj Alves MD [address] [place], [place] [phone] PCP - General 02/28/09
--- OUTSIDE RECORDS SUMMARY | 2024-08-01 15:32 | XMS_ITS | Encounter Summary ---
Author Organization [facility] [place] [address] Care Team Providers Care Casing Sewer Name Role Phone Ash Hernandez MD Primary Care Provider [phone] Reason for Visit * Reason Comments Radiation Consult Tongue Cancer Encounter Details Date Type Department Care Team (Late st Contact Info) Description 12/25/2011 3:00 PM EDT Office Visit [place] [address] Jesse Mcmahan MD [facility] [place] [address] Cancer of base of tongue (Primary Dx) [...] Sign Reading Time Taken Comments Blood Pressure 153/68 12/25/2011 2:27 PM EDT Pulse 79 12/25/2011 2:27 PM EDT Temperature 37.2 ??C (98.9 ??F) 12/25/2011 2:27 PM ED T Respiratory Rate 20 12/25/2011 2:27 PM EDT Oxygen Saturation 99% 12/25/2011 2:27 PM EDT Inhaled Oxygen Concentration - - Weight 110.5 kg (243 lb 8 oz) 12/25/2011 2:27 PM EDT Height - - Body Mass Index 35.41 12/17/2011 1:55 PM EDT documented in this encounter Progress Notes * Cassy Robles RN - 12/25/2011 3:11 PM EDT RADIATION ONCOLOGY NURSING INITIAL NURSING ASSESSMENT IDENTIFICATION: Sebastian Wyatt is a 56 y.o. year-old male with tongue cancer ADVANCE DIRECTIVES: In eD-H [ ] Has documents [ ] Will bring in [ X ] If no AD, was Advance Directive pamphlet provided? Yes PRESENTING SYMPTOMS?CHIEF COMPLAINT:This is a 56 y.o. male had developed sore throat in early November2011. Treated initially with antibiotics and sore throat symptoms mostly resolved. He then noticed a lymph node in the left neck. Was seen by Dr. Parrish who performed a fine needle aspiration of thisnode c/w metastatic SCCa. Exam suggestive of tonsil primary, left side. REVIEW OF SYSTEMS:Review of Systems Constitutional: Negative. HENT: Positive for neck pain. Eyes: Negative. Respiratory: Negative. Cardiovascular: Negative. Gastrointestinal: Positive for heartburn. Genitourinary: Negative. Musculoskeletal: Positive for joint pain. Negative for back pain. Skin: Negative. Neurological: Negative. Endo/Heme/Allergies: Negative. Psychiatric/Behavioral: The patient is nervous/anxious. Prior Radiotherapy: No [ X] Yes [ ] Site: Date: Physician/Location: Prior Chemotherapy: No [ X ] Yes [ ] Drug(s): Physician/Location: Date of last treatment: Prior Hormone Therapy: No [ X ] Yes [ ] Drug(s): Physician/Location: RADIATION SPECIFIC REVIEW: NO: YES: Hearing Aides No Claustrophobia or requires sedation for MRIs YES Allergy to CT or MRI contrast agent, iodine or shellfish/ hx asthma No Diabetic and on metformin No Metal in body, implanted device, worked with metal, body piercings,braces Gold post Dental health- loose, broken or chipped teeth ,dentures (no=intact) 1 broken tooth and one loose after recent anaesthesia. Pacemaker No Difficulty breathing/pain while lying flat No Kidney problems/creatinine No Balance difficulty: No [ X ] Yes [ ] Assistive Device(s): None [ X ] Cane [ ] Walker [ ] Wheelchair [ ] Other [ ] Activities of Daily Living: No limits [ X ] Needs dressing assistance [ ] Needs meal assistance [ ] At risk for fall: No [ X ] Yes [ ] If at risk for fall, what action were implemented to prevent falls: PAIN ASSESSMENT: [ ] out of 10 Location: Description: [ ] Dull [ ] Sharp [ ] Burning [ ] Throbbing [ ] Radiating [ ] Continuous [ ]Intermittent Aggravating Factors: [ ] Movement [ ] Position [ ]Immobility [ ]Other Alleviating Factors: [ ]Medication [ ] Positioning [ ] Other Current Pain Management Plan: [ ]Satisfied [ ] Not satisfied SOCIAL ASSESSMENT: See EDH social assessment information entered. Support Systems: Barriers to treatment: None Referrals/Interventions:None LEARNING STYLE: Written and verbal RADIATION SPECIFIC TEACHING: __X_ [facility] Radiation Therapy and You ___ Site specific teaching : ___ Other: PLAN: Consult with dr. Mcmahan * Jesse Mcmahan MD - 12/25/2011 3:10 PM EDT Radiation Oncology Consultation Note Primary MD: ASH HERNANDEZ MD Referring MD: Rio Graves Other Involved Physicians: Butch Catalan MD Focused Problem List: ?? 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 Presentation: ?? Hx. 1 PPD x 38 yrs. Quit 08/2011. Developed odynophagia early 11/2011, abx did not improve, . Referred to ENT. He does note some coughing in the morning ove the past year. ?? Staging: ?? 12/09/11 CT H&N with contrast ([facility]): Mixed attenuation mass with lare low density areas suggesting necrotic change present deep to anterior aspect L SCM. Mass smoothly marginated, max 3.3 x 5.2 cm. ?? 11/27/11 PET-CT ([facility] Despite premedication, severe claustrophobia allowed this can [...] - Left tonsil: negative for malignancy ?? Therapy: History of Present Illness: Sebastian Wyatt is a 56 y.o. male who is seen in consultation in the section of Radiation Oncology at [facility] regarding his squamous cell carcinoma of the BOT. The patient's initial presentation and evaluation is as per the problem list noted above. Currently, he has the following symptoms: Symptom Description Ongoing Intervention Dysphagia He notes difficulty with meat, nuts, bulky foods. Odynophagia Very mild discomfort with swallowing, Trismus Denies Weight Loss Lost ~ 10 lbs after diagnosis. Diet Modifications Increasing carefully about what he eats. Neck Symptoms Denies Dental Issues Last saw dentist prior to biopsy Otalgia/Referred Pain Denies Other Pain Denies Sebastian Wyatt denies new onset BARBOSA, n/v, unilateral changes in strength or sensation, visual orcognitive changes. Allergies as of 12/25/2011 ??? (No Known Allergies) Past Medical History Diagnosis Date ??? Acid reflux ??? Thyroid dysfunction ??? Arthritis ??? Psoriasis Past Surgical History Procedure Date ??? Carpal tunnel release rt ??? Laryngoscopy, dirct, op scope, biopsy 12/12/2011 LARYNGOSCOPY, MICROSCOPE, WITH BIOPSY performed by RIO GRAVES at [facility] MA[facility] OR ??? Laryngoscopy, dirct, op scop, exc tumr 12/12/2011 LARYNGOSCOPY, DIRECT, EXCISION OF TUMOR, CORD STRIPPING, MICRO performed by RIO GRAVES at [facility] MA[facility] OR History Social History ??? Marital Status: Spouse Name: N/A Number of Children: N/A ??? Years of Education: N/A Social History Main Topics ??? 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 Lives near [facility] with , 10yo daughter, 2 horses, 2 dogs. Family History Problem Relation Age of Onset ??? Heart Failure Mother ??? Diabetes ??? Heart Failure Father ??? Diabetes Father ??? Diabetes Mother ??? Thyroid Disease Sister hypothyroidism ??? Thyroid Disease Mother hypothyroidism Patient's Medications New Prescriptions No medications on [...] TABLET Take 400 Units by mouth daily. DOXAZOSIN (CARDURA) 2 MG TABLET Take 2 mg by mouth nightly. LEVOTHYROXINE (SYNTHROID) 137 MCG TABLET Take 137 [...] file Discontinued Medications No medications on file Physical Exam: Filed Vitals: 12/25/11 1427 BP: 153/68 Pulse: 79 Temp: 37.2 ??C (98.9 ??F) TempSrc: Oral Resp: 20 Weight: 110.451 kg (243 lb 8 oz) SpO2: 99% Physical Exam Constitutional: He is oriented to person, place, and time and well-developed, well-nourished, and in no distress. HENT: Head: Normocephalic and atraumatic. Visual inspection of OC and OP revealed no evidence of suspicious masses or lesions. Palpation revealed no suspicious masses and no induration along the posterior tongue. Moisture good. Pt with teethin good repair. Eyes: EOM are normal. Pupils are equal, round, and reactive to light. Neck: No tracheal deviation present. ~5 cm mass L level II neck, fixed and non-tender. No other adenopathy evident in cervical, SCLV, ICLV basins. Neurological: He is alert and oriented to person, place, and time. No cranial nerve deficit. Procedure: Direct Laryngoscopy - deferred, Dr. Graves to perform today. Review of Systems: as documented per the nursing assessment, reviewed and I agree with the assessment as stated Imaging: See problem list for details, CT of H&N and PET-CT reviewed and I concur with the assessment as stated Contraindications to Radiotherapy: NO YES: Date, site, dose (women only) X Prior Radiotherapy X Collagen-Vascular dz X Assessment: Sebastian Wyatt is a 56 y.o. male who presents to discuss radiation therapy as a component of treatment for his squamous cell carcinoma of the BOT. The patient's cancer is AJCC 7th stage as follows: T: cT1-2 N: cN2a-b M: cM0 Stage: IV-A ?? Squamous cell carcinoma of the BOT: ?? Staging: his cancer has been staged with a CT of the H&N, a partially completed PET-CT scan,EUA with triple endoscopy and pathologic evaluation of the primary. His PET-CT is inadequate and heshould have one to facilitate treatment planning for radiotherapy. ?? Therapy: Sebastian Wyatt has been evaluated by surgery and is felt to be a candidate for resection, although there are concerns secondary to his body habitus and the possibility of adequate robotic surgery. The patient's case has been reviewed at the [facility] tumor board and it was felt that robotic surgery f/b adjuvant radiotherapy or definitive chemoradiotherapy would be reasonable options for potential cure of his locally advanced malignancy. These recommendations are in line with NCCN recommendations. We discussed the rationale, logistics and efficacy of definitive chemoradiotherapy as well as robotic surgery f/b adjuvant radiotherapy. We discussed the potential risk factors which would prompt the addition of chemotherapy to adjuvant radiotherapy. With respect to radiotherapy, we discussed the risks of therapy, including but not limited to short term sequelae (fatigue, skin erythema, mucositis, dysphagia, ageusia, xerostomia, weight loss) and remote computer terminal operator sequelae (skin fibrosis, assisted dysphagia potentially requiring a permanent feeding tube, xerostomia, osteoradionecrosis, esophageal stricture, and the low probability of significant damage to soft tissue, bone or skin requiring surgical or medical intervention). Mr. Wyatt expressed an understanding of these risks. The patient and his family had a number of questions regarding optimal therapy, the utility of surgery in conjunction with chemoradiotherapy, and potential side effects. These questions were answered to their satisfaction. Plan: ?? Further Staging: PET-CT of head ?? Dental Issues: has had dental evaluation, will need to confirm eligibility for XRT by getting dental records ?? Enteral Nutrition: discussed need for PEG ?? Treatment: Definitive chemoradiotherapy vs TORS f/b adjuvant radiotherapy +/- chemotherapy ?? Referral to Speech/Swallow Pathology ?? Referral to Supervisor Gelatin Plant documented in this encounter Plan of Treatment Upcoming Encounters Date Type Department Care Team (Late st Contact Info) Description 05/24/2025 11:00 AM EDT Office Visit Radiation Oncology at [address] [phone] Jesse Mcmahan MD [facility] [place] [address] documented as of this encounter Visit Diagnoses Diagnosis Cancer of base of tongue- Primary Malignant neoplasm of base of tongue documented in this encounter Care Teams Casing Sewer Relationship Specialty Start Date End Date Ash Hernandez MD [address] [place] [phone] PCP - General 06/25/10 04/02/23 documented as of this encounter
--- OUTSIDE RECORDS SUMMARY | 2024-08-01 15:32 | XMS_ITS | Encounter Summary ---
Author Organization [facility] [place] [address] Care Team Providers Care Neurosurgery Physician Name Role Phone Bj Alves MD Primary Care Provider [phone] Encounter Details Date Type Department Care Team (Latest Contact Info) Description 12/12/2011 12:37 PM EDT - 12/12/2011 5:10 PM EDT Hospital Encounter [place] [address] Rio Graves MD [facility] [place] [address] Head and neck cancer Discharge Disposition: Home [...] next week. IMPORTANT PHONE NUMBERS: ENT Clinic: [phone] ENT Residents Quality Assurance Tester (after 5pm or before 8am): [phone] documented in this encounter Medications at Time [...] he was very happy with preop care. [place] well taken care of and that staff [...] from the original note were not included. [facility] Operative Note Patient Name: Sebastian Rubi : [id number] MR#: [id number] Case Date: 12/12/2011 Surgeon: Surgeon(s) and Role: [...] EDT Office Visit Radiation Oncology at [address] [phone] Jesse Mcmahan MD [facility] [place] [place] [address] documented as of this encounter Procedures Procedure [...] (12/12/2011 3:45 PM EDT) Molecular Report ? [facility] ? Provider: ?? RIO GRAVES Pt. Name: ?? JRTHIAGOSEBASTIAN Regalado ? Acc #: ?[id number] ?Pt. ? Col Date: ?? 12/12/2011 ? [...] developed and its performance determined by the [facility] ? Molecular Pathology ??Laboratory. It has not [...] high complexity ? clinical testing. ? References: ??Wolfe TW, Ty DH. Biochemistry 1991;30:0717-0508; ? James GOULDM, et al. J pathol 1999;189:12-19; Levar PE, et al. J Clin ? Microbiol 2000;38:357-361. ? _ ? Verified date: ??01/22/12 ??HAB ? Verified by: ?Zaira Magana MD ? (Electronic Signature) RAMU COBOS 12/12/2011 3:45 PM EDT Roi Graves MD PATHOLOGY/CYTOLOGY ORDERABLES [facility] * SURGICAL PATHOLOGY REPORT (12/12/2011 3:45 PM EDT) Surgical Pathology Report ? [facility] ? Provider: ?? RIO GRAVES Pt. Name: ?? SEBASTIAN RUBI ? Acc #: ?[id number] ?Pt. ? Col Date: ?? 12/12/2011 ? [...] to 0.6 cm. ? Tissue Description: ?? [place] fragments of mucosa. ? Sections/Process ing: ??(T1) ? C - Labeled/Fixative : Left tonsil, fresh. ? Qty/Size/Weight: ?Two, averaging 0.4 cm. ? Tissue Description: ?? Soft, pink tissues. ? Sections/Process ing: ??(T1) ??aje/SNS ? ---Clinical Information--- ? Specimen Submitted: ? A - Cyst left vallecula ? [facility] ? Provider: ?? RIO GRAVES Pt. Name: ?? SEBASTIAN RUBI ? Acc #: ?[id number] ?Pt. ? Col Date: ?? 12/12/2011 ? /Sex: ?1955,(56 years),Male ? Rec Date: ?? 12/12/2011 ? LOC: ?SDP ? SURGICAL PATHOLOGY ? B - Left tongue base ? C - Left tonsil ? Clinical History/Diagnosi s: ? Laryngeal lesion CERNER COURTNEYCHINTANIUM 12/12/2011 3:45 PM EDT Rio Graves MD PATHOLOGY/CYTOLOGY ORDERABLES Performing Organization Address [facility] de Phone Number [facility] * Specimen to Pathology (surgical or derm) (12/12/2011 3:04 PM EDT) AP Specimen 12/12/2011 3:04 PM EDT 12/12/2011 3:04 PM EDT Narrative JUANNER COURTNEYCHINTANIUM - 12/12/2011 3:04 PM EDT Specimen requisition ordered. ??Separate Pathology report to follow Rio Graves MD PATHOLOGY/CYTOLOGY ORDERABLES Performing Organization Address [facility] de Phone Number [facility] * Specimen to Pathology (surgical or derm) (12/12/2011 3:04 PM EDT) AP Specimen 12/12/2011 3:04 PM EDT 12/12/2011 3:04 PM EDT Narrative RAMU COBOS - 12/12/2011 3:04 PM EDT Specimen requisition ordered. ??Separate Pathology report to follow Rio Graves MD PATHOLOGY/CYTOLOGY ORDERABLES Performing Organization Address [facility] Co de Phone Number RAMU COBOS * Specimen to Pathology (surgical or derm) (12/12/2011 2:57 PM EDT) AP Specimen 12/12/2011 2:57 PM EDT 12/12/2011 2:58 PM EDT Narrative RAMU COBOS - 12/12/2011 2:57 PM EDT Specimen requisition ordered. ??Separate Pathology report to follow Rio Graves MD PATHOLOGY/CYTOLOGY ORDERABLES Performing Organization Address [facility] de Phone Number RAMU COBOS documented in this encounter Visit Diagnoses Diagnosis Head and neck cancer Malignant neoplasm of head, face, and neck documented in this encounter Administered Medications Inactive Administered Medications - up to 3 most recent administrations Medication Order MAR Action Action Date Dose Rate Site OXYcodone (ROXICODONE) 5 mg/5 mL solution 5 mg 5 mg, Oral, EVERY 4 HOURS PRN, Starting on Thu12/12/11 at 1538, Until Thu12/12/11 at 2039, Pain, Routine Given 12/12/2011 4:16 PM EDT 10 mg documented in this encounter Active and Recently Administered Medications Times are shown in EDT. PRN Medication Order 12/10/2011 12/11/2011 12/12/2011 epiNEPHrine (ADRENALIN) 1:1,000 (0.1 %) nasal solution (CANCELED) ONCE PRN, Starting on Thu12/12/11 at 1527, Until Thu12/12/11 at 203, Congestion, Intra-Operative (Intra-Procedure), Routine 1527 (Given - Provid er: Jennifer Akins MD) OXYcodone (ROXICODONE) 5 mg/5 mL solution 5 mg 5 mg, Oral, EVERY 4 HOURS PRN, Starting on Thu12/12/11 at 1538, Until Thu12/12/11 at 2039, Pain, Routine 1616 (Given - Provid er: Amber Pascual RN) documented in this encounter Care Teams Neurosurgery Physician Relationship Specialty Start Date End Date Bj Alves MD [address] [place] [address] [phone] PCP - General 06/25/10 04/02/23 documented as of this encounter
--- OUTSIDE RECORDS SUMMARY | 2024-08-01 15:32 | XMS_ITS | Clinical Summary ---
Author Organization [facility] Address [address] [place] [address] Care Team Providers Care Home Decorator Name Role Phone Bj Alves MD Primary Care Provider [phone] Allergies No known active allergies Medications Fenofibrate 54 mg Tab Take 54 mg by mouth daily. Active fluticasone (FLONASE) 50 mcg/Actuation nasal spray 1 [place] by Nasal route as needed. 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 1 PPD x 38 yrs. Quit 08/2011. Developed odynophagia early 11/2011, abx did not improve, . Referred to ENT. He does note some coughing in the morning ove the past year. Stagin12/09/11 CT H&N with contrast ([facility] Mixed attenuation mass with lare low density areas suggesting necrotic change present deep to anterior aspect L SCM. Mass smoothly marginated, max 3.3 x 5.2 cm. 11/27/11 PET-CT ([facility] Despite premedication, severe claustrophobia [...] cetuximab arm. Received 70 Gy completed 04/06/12 Surgical History Surgery Date Site/Laterality Comments ABDOMINAL AORTIC ANEURYSM RE PAIR, ENDOVASCULAR 08/03/2018 - 08/02/2019 Medical History Medical History Date Comments Cancer ([facility]) 2013 Throat tx with chemo and radiation Social History Tobacco Use Types Packs/Day Years Used Date Smoking Tobacco: Former Smokeless Tobacco: Never Interpersonal Safety Answer Date Record ed Physically Hurt Never 03/04/2020 Verbally Threaten Not on file 03/04/2020 Sex and Gender Information Value Date Recorded Sex Assigned at Not on file Legal Sex Male 17:43 EST Gender Identity Male 03/26/2020 15:17 EDT Sexual Orientation Not on file Obstetrics History Last Filed Vital Signs Vital Sign Reading [...] Mass Index - - Plan of Treatment Health Maintenance Due Date Last Done Comments Hepatitis C Screen 1955 Fall Risk Screening 2021 COVID-19 Vaccine (2023-25 season) 2024 RSV Immunization ( o r 60+ Years) (1 - 1-dose 75+ series) 2031 Insurance [facility] [employer] MEDICARE CIG MEDICARE Care Teams Home Decorator Relationship Specialty Start Date End Date Bj Alves MD [address] [place] [address] PCP - General 02/28/09
--- OUTSIDE RECORDS SUMMARY | 2024-08-01 15:32 | XMS_ITS | Encounter Summary ---
Author Organization [facility] Address [address] [place] [address] Care Team Providers Care Supplemental Nurse Name Role Phone Bj Alves MD Primary Care Provider [phone] Encounter Details Date Type Department Care Team (Latest Contact Info) Description 03/29/2020 Travel Social History Tobacco Use Types Packs/Day [...] on filedocumented in this encounter Care Teams Supplemental Nurse Relationship Specialty Start Date End Date Bj Alves MD [address] [place] [address] PCP - General 02/28/09 documented as of this encounter
--- OUTSIDE RECORDS SUMMARY | 2024-08-01 15:32 | XMS_ITS | Encounter Summary ---
Author Organization [facility] Address [address] [place] [address] Care Team Providers Care Infrastructure Security Architect Name Role Phone Bj Alves MD Primary Care Provider [phone] Encounter Details Date Type Department Care Team (Late st Contact Info) Description 08/09/2020 Lab Requisition [facility] Pathology & Laboratory Medicine - [facility] [address] [place] [address] Sean Cabrales, [address] [place] [address] Encounter for other general examination Social History [...] Date/Time Associated Diagnosis Comments SURGICAL PATHOLOGY Today 08/08/2020 16 :00 EST documented in this encounter Results * SURGICAL PATHOLOGY (08/08/2020 16:00 EST) Final Diagnosis A. SKIN OF SCALP, PUNCH BIOPSY: - Blue nevus, narrowly encompassed within the examined sections. See microscopic. 08/13/2020 13:20 EST [facility] Attestation By the signature below, the attending physician certifies that they have 1) personally conducted a gross and/or microscopic examination of the described specimen(s), and/or personally interpreted the results of laboratory testing of the described specimen(s), and 2) personally rendered or confirmed the above diagnosis. 08/13/2020 13:20 [facility] at 1320 Microscopic Description Multiple levels are reviewed. 08/13/2020 13:20 [facility] Clinical History Suspicious nevus scalp; blue nevus vs melanoma? 08/13/2020 13:20 [facility] Gross Description A. Received in formalin labelled with proper patient identification (initials Z, L) and not otherwise specified is a punch biopsy of brown jung skin (0.4 cm in diameter and 0.3 cm in depth). The specimen is submitted intact in A1. VALENTÍN XAVIER(ASCP) 08/10/2020 18:47 08/13/2020 13:20 [facility] Performing Lab [facility] 08/13/2020 13:20 [facility] Scanned Images 08/13/2020 13:20 [facility] Tissue TISSUE SPECIMEN FROM SKIN / Unknown 08/08/2020 16:00 EST 08/10/2020 17:34 EST us Sean Cabrales DO PATHOLOGY ORDERABLES Final R esult [facility] [address] [place] [address] documented in this encounter Visit Diagnoses Diagnosis Encounter for other general examination documented in this encounter Care Teams Infrastructure Security Architect Relationship Specialty Start Date End Date Bj Alves MD [address] [place] [address] PCP - General 02/28/09 documented as of this encounter
--- OUTSIDE RECORDS SUMMARY | 2024-08-01 15:33 | XMS_ITS | Encounter Summary ---
Author Organization [facility] Address [address] [place] [address] Care Team Providers Care Brick Wheeler Name Role Phone Bj Alves MD Primary Care Provider [phone] Encounter Details Date Type Department Care Team (Latest Contact Info) Description 04/08/2018 15:39 EDT - 04/08/2018 23:59 EDT Hospital Encounter [address] [address] Marion Sanchez MD [place] Location [address] [place] [address] Discharge Disposition: Home or Self Care Social [...] fluticasone (FLONASE) 50 mcg/Actuation nasal spray 1 [place] by Nasal route as needed. Multivitamins with [...] Code Departure Means Destination Home or Self Prison documented in this encounter Plan of Treatment Not on file documented as of this encounter Visit Diagnoses Not on filedocumented in this encounter Care Teams Brick Wheeler Relationship Specialty Start Date End Date Bj Alves MD [address] [place] [address] PCP - General 02/28/09 documented as of this encounter
--- OUTSIDE RECORDS SUMMARY | 2024-08-01 15:33 | XMS_ITS | Encounter Summary ---
Author Organization [facility] Address [address] [place] [address] Care Team Providers Care Owner Oral Surgeon Name Role Phone Bj Alves MD Primary Care Provider [phone] Encounter Details Date Type Department Care Team (Late st Contact Info) Description 04/08/2018 Results Only [facility] [phone] Young Trujillo MD [address] [place] [phone] Social History Tobacco Use Types Packs/Day Years [...] Date/Time Associated Diagnosis Comments SURGICAL PATHOLOGY Routine 04/08/2018 8:45 EDT documented in this encounter Results * SURGICAL PATHOLOGY (04/08/2018 8:45 EDT) Pathology Report: SURGICAL PATHOLOGY REPORT Reports generated via electronic interface contain original data; however they are lacking the format of the original report. Caution should be taken when reading/interpret ing unformatted reports. Name: ? SEBASTIAN RUBI ? Accession #: ? [id number] ? : ? 1955 (Age: 63) ??M ? Collect Date: ? 04/08/2018 ? Location: ? [facility] ? Receive Date: ? 04/09/2018 ? Provider: YOUNG TRUJILLO MD Copy to: ? Final Pathologic Diagnosis: A. COLON, SIGMOID, POLYP, POLYPECTOMY: - Tubulovillous adenoma. B. COLON, DISTAL SIGMOID, POLYP, POLYPECTOMY: - Fragments of tubulovillous adenoma. Document reviewed and electronically signed by: Niall Eric MD Report ??Date: 04/12/2018 17:38 By the signature above, the attending physician certifies that he/she has personally conducted a gross and/or microscopic examination of the described specimens and rendered or confirmed the above diagnosis. Specimen(s) Received: A. ??Sigmoid polyp B. ??Distal sigmoid polyp Clinical History: Not listed Gross Description: A. ?Received in formalin labelled with proper patient identification (initials Z, L) and sigmoid polyp is a single brown-black polypoid tissue (0.8 x 0.6 x 0.3 cm). The margin is inked blue. The specimen is bisected and entirely submitted in A1. B. ?Received in formalin labelled with proper patient identification (initials Z, L) and distal sigmoid polyp are two light contreras and brown-black polypoid tissues (1.5 x 0.9 x 0.8 cm and 1.2 x 0.8 x 0.4 cm). The margins are inked blue. The smaller polyp is trisected and entirely submitted in B1. The larger polyp is sectioned into seven sections and entirely submitted in B2 through B4. Also received in the same container are seven light contreras tissue fragments that range from (0.6 x 0.4 x 0.2 cm and 0.2 x 0.1 x 0.1 cm). The specimens are submitted intact in B5 through B7. Jessica Peguero 04/09/2018 9:06 AM End of Report [facility] 04/08/2018 8:45 EDT 04/09/2018 8:45 EDT us Young Trujillo MD PATHOLOGY ORDERABLES Final Res ult [facility] [address] [place] [address] documented in this encounter Visit Diagnoses Not on filedocumented in this encounter Care Teams Owner Oral Surgeon Relationship Specialty Start Date End Date Bj Alves MD [address] [place] [address] PCP - General 02/28/09 documented as of this encounter
--- OUTSIDE RECORDS SUMMARY | 2024-08-01 15:33 | XMS_ITS | Encounter Summary ---
Author Organization [facility] Address [address] [place] [address] Care Team Providers Care Script Artist Name Role Phone Bj Alves MD Primary Care Provider [phone] Encounter Details Date Type Department Care Team (Late st Contact Info) Description 04/19/2009 Orders Only [facility] [phone] Lidya Al MD [address] [place], [place] [id number] Social History Tobacco Use Types Packs/Day Years [...] Procedure Name Priority Date/Time Associated Diagnosis Comments MR CERVICAL SPINE WO CONTRAST 04/19/2009 12:51 EDT documented in this encounter Results * MR CERVICAL SPINE WO CONTRAST (04/19/2009 12:51 EDT) Anatomical Region Laterality Modality Other 04/19/2009 12:5 1 EDT 04/20/2009 13:08 EDT Narrative 04/20/2009 13:08 EDT MR CERVICAL SPINE WITHOUT CONTRAST 2008 INDICATION: Neck pain with left upper extremity radicular symptoms COMPARISON: None. TECHNIQUE: MR examination of the cervical spine without IV contrast was performed using the following sequences: 1. Sagittal T1 and T2. 2. Axial T2 gradient. 3. Sagittal oblique T2. FINDINGS: The cervical spinal cord is normal in size and signal without intradural extramedullary lesion or cerebellar tonsillar ectopia. There is degenerative disc disease from C2-C3 through C6-C7 with mild loss of disc signal. The cervical vertebral bodies are preserved in normal height, alignment, and marrow signal. There is mild degenerative facet joint osteoarthritis, most notable from C4-C5 through C7-T1. There is minimal degenerative type endplate signal centered about the C2-C3 disc. At C2-C3, there is small focal central disc protrusion with minimal degenerative facet joint osteoarthritis, which results in no acquired spinal canal or neuroforaminal compromise. At C3-C4, there is a tiny focal left lateral recess and left foraminal disc protrusion with minimal degenerative facet joint osteoarthritis, which result in mild left without right neuroforaminal narrowing and no acquired spinal canal compromise. At C4-C5, there is a tiny focal central disc protrusion, with mild degenerative facet joint osteoarthritis, which results in mild right without left neuroforaminal narrowing and no acquired spinal canal compromise. At C5-C6, there is disc osteophyte complex with uncovertebral spurs and mild degenerative facet joint osteoarthritis, which result in mild to moderate right and moderate to severe left neuroforaminal narrowing, ??without acquired spinal canal compromise. At C6-C7, there is broad-based left central disc protrusion with mild degenerative facet joint osteoarthritis, which result in mild bilateral neuroforaminal narrowing, left greater than right, without acquired spinal canal compromise. At C7-T1, there is no focal disc herniation, neuroforaminal narrowing, or acquired spinal canal compromise. The included paraspinous soft tissues are normal in signal. IMPRESSION: 1. Multilevel degenerative disc disease with small focal disc herniation at C2-C3, tiny focal left lateral recess and left foraminal herniation at C3-C4, tiny focal central disc herniation at C4-C5 and broad-based left central disc herniation at C6-C7, without acquired spinal canal compromise. 2. Mild multilevel degenerative facet joint osteoarthritis. Mild/moderate right and moderate to severe left neuroforaminal narrowing, at C5-C6, mild bilateral neuroforaminal narrowing at C6-C7, mild right without left neuroforaminal narrowing at C4-C5, and mild left without right neuroforaminal narrowing at C3-C4. I have personally reviewed the images and the above interpretation and agree with the findings. Procedure Note Bj Valiente MD, MD / Bj Valiente MD, MD / Bj Valiente MD, MD - 04/20/2009 MR CERVICAL SPINE WITHOUT CONTRAST 2008 INDICATION: Neck pain with left upper extremity radicular symptoms COMPARISON: None. TECHNIQUE: MR examination of the cervical spine without IV contrast was performed using the following sequences: 1. Sagittal T1 and T2. 2. Axial T2 gradient. 3. Sagittal oblique T2. FINDINGS: The cervical spinal cord is normal in size and signal without intradural extramedullary lesion or cerebellar tonsillar ectopia. There is degenerative disc disease from C2-C3 through C6-C7 with mild loss of disc signal. The cervical vertebral bodies are preserved in normal height, alignment, and marrow signal. There is mild degenerative facet joint osteoarthritis, most notable from C4-C5 through C7-T1. There is minimal degenerative type endplate signal centered about the C2-C3 disc. At C2-C3, there is small focal central disc protrusion with minimal degenerative facet joint osteoarthritis, which results in no acquired spinal canal or neuroforaminal compromise. At C3-C4, there is a tiny focal left lateral recess and left foraminal disc protrusion with minimal degenerative facet joint osteoarthritis, which result in mild left without right neuroforaminal narrowing and no acquired spinal canal compromise. At C4-C5, there is a tiny focal central disc protrusion, with mild degenerative facet joint osteoarthritis, which results in mild right without left neuroforaminal narrowing and no acquired spinal canal compromise. At C5-C6, there is disc osteophyte complex with uncovertebral spurs and mild degenerative facet joint osteoarthritis, which result in mild to moderate right and moderate to severe left neuroforaminal narrowing, without acquired spinal canal compromise. At C6-C7, there is broad-based left central disc protrusion with mild degenerative facet joint osteoarthritis, which result in mild bilateral neuroforaminal narrowing, left greater than right, without acquired spinal canal compromise. At C7-T1, there is no focal disc herniation, neuroforaminal narrowing, or acquired spinal canal compromise. The included paraspinous soft tissues are normal in signal. IMPRESSION: 1. Multilevel degenerative disc disease with small focal disc herniation at C2-C3, tiny focal left lateral recess and left foraminal herniation at C3-C4, tiny focal central disc herniation at C4-C5 and broad-based left central disc herniation at C6-C7, without acquired spinal canal compromise. 2. Mild multilevel degenerative facet joint osteoarthritis. Mild/moderate right and moderate to severe left neuroforaminal narrowing, at C5-C6, mild bilateral neuroforaminal narrowing at C6-C7, mild right without left neuroforaminal narrowing at C4-C5, and mild left without right neuroforaminal narrowing at C3-C4. I have personally reviewed the images and the above interpretation and agree with the findings. Lidya Al MD IMG MRI ORDERABLES Final Result documented in this encounter Visit Diagnoses Not on filedocumented in this encounter Care Teams Script Artist Relationship Specialty Start Date End Date Bj Alves MD [address] [place] [address] PCP - General 02/28/09 documented as of this encounter
--- OUTSIDE RECORDS SUMMARY | 2024-08-01 15:33 | XMS_ITS | Encounter Summary ---
Author Organization [facility] Address [address] [place] [address] Care Team Providers Care Supervisor Die Casting Name Role Phone Unavailable Primary Care Provider Unavailabl e Encounter Details Date Type Department Care Team (Late st Contact Info) Description 10/19/2002 10:16 EST Hospital Encounter [facility] [place] [address] [place] [address] Bj Alves MD [address] [place] [phone] Social History Tobacco Use Types Packs/Day Years [...]
--- OUTSIDE RECORDS SUMMARY | 2024-08-01 15:33 | XMS_ITS | Encounter Summary ---
Author Organization [facility] Address [address] [place] [address] Care Team Providers Care Account Manager Sales Representative Name Role Phone Unavailable Primary Care Provider Unavailabl e Encounter Details Date Type Department Care Team (Latest Contact Info) Description 09/05/2002 8:09 EST - 09/30/2002 11:59 EST Hospital Encounter [facility] - [place] [address] [place] [address] Bj Alves MD [address] [place] [phone] Discharge Disposition: Auto Discharge Social History Tobacco Use Types Packs/Day Years Used Date Smoking Tobacco: Never Assessed Sex and Gender Information Value Date Recorded Sex Assigned at Not on file Legal Sex Male 17:43 EST Gender Identity Male 03/26/2020 15:17 EDT Sexual Orientation Not on file documented as of this encounter Discharge Disposition Disposition Code Departure Means Destination Auto Discharge documented in this encounter Plan of Treatment Not on file documented as of this encounter Visit Diagnoses Not on filedocumented in this encounter
--- OUTSIDE RECORDS SUMMARY | 2024-08-01 15:33 | XMS_ITS | Encounter Summary ---
Author Organization [facility] Address [address] [place] [address] Care Team Providers Care Oil And Gas Principal Name Role Phone Bj Alves MD Primary Care Provider [phone] Encounter Details Date Type Department Care Team (Latest Contact Info) Description 04/19/2009 8:00 EDT - 04/19/2009 13:35 EDT Hospital Encounter [facility] Perioperative Services- [facility] [address] [place], [place] [phone] Lidya Al MD [address] [place], [place] [phone] Discharge Disposition: Home or Self Care Social [...] Sign Reading Time Taken Comments Blood Pressure 136/83 04/19/2009 1315 EDT Pulse 76 04/19/2009 1315 EDT Temperature 35.9 ??C (96.6 ??F) 04/19/2009 1315 EDT Respiratory Rate 12 04/19/2009 1315 EDT Oxygen Saturation 99% 04/19/2009 1315 EDT Inhaled Oxygen Concentration - - Weight 106.6 kg (235 lb) 04/12/2009 1140 EDT Height 177.8 cm (5' 10) 04/12/2009 1140 EDT Body Mass Index 33.72 04/12/2009 1140 EDT documented in this encounter Medications at Time of Discharge amlodipine (NORVASC) 10 mg tablet Take 10 mg by mouth daily. betamethasone dipropionate (DIPROLENE) 0.05 % ointment Apply 0.05 Tubes topically as needed. Fenofibrate 54 mg Tab Take 54 mg by mouth daily. fluticasone (FLONASE) 50 mcg/Actuation nasal spray 1 [place] by Nasal route as needed. Multivitamins with [...] Code Departure Means Destination Home or Self Care documented in this encounter Progress Notes * Bri Le RN - 04/19/2009 1314 EDT 1313 Verbally reviewed discharge instructions with pt, hard copy signed and given to pt.-djp * Christina Flowers RN - 04/19/2009 1254 EDT 1254 - Sebastian Wyatt Admit s/p MRI with anesthesia. Awake, lying supine on stretcher. Denies pain. Identification verified verbally and on patient wristband. PIV in right AC patent . LR infusingKVO. Family here. documented in this encounter H&P Notes * Inpatient, Physician - 04/24/2009 1339 EDT documented in this encounter Procedure Notes * Inpatient, Physician - 04/24/2009 1339 EDTAssociated Order(s): ORDERS - SCANNED documented in this encounter OR Notes * Anesthesia Preprocedure Evaluation - Inpatient, Physician - 04/24/2009 1339 EDT * Anesthesia Preprocedure Evaluation - Inpatient, Physician - 04/20/2009 0930 EDT * Anesthesia Procedure Notes - Inpatient, Physician - 04/19/2009 1257 EDT documented in this encounter Miscellaneous Notes * Scanned Note-Null - Inpatient, Physician - 04/29/2009 1455 EDT * Scanned Note-Null - Inpatient, Physician - 04/24/2009 1339 EDT * Scanned Note-Null - Inpatient, Physician - 04/24/2009 1339 EDT * Plan of Care - Inpatient, Physician - 04/24/2009 1339 EDT documented in this encounter Plan of Treatment Not on file documented as of this encounter Procedures Procedure Name Priority Date/Time Associated Diagnosis Comments ORDERS - SCANNED 04/24/2009 13:3 9 EDT documented in this encounter Results * ORDERS - SCANNED (04/24/2009 13:39 EDT) 04/24/2009 13:3 9 EDT Narrative Procedure Note Inpatient, Physician - 04/24/2009 13:39 EDT Physician Inpatient MD ADMISSION ORDERABLES Staci l Result documented in this encounter Visit Diagnoses Not on filedocumented in this encounter Administered Medications Inactive Administered Medications - up to 3 most recent administrations Medication Order MAR Action Action Date Dose Rate Site lactated ringers (LR) infusion at 25 mL/hr, 1,000 mL, intravenous, CONTINUOUS, Starting on Evelina 04/19/09 at 0900, Until Evelina 04/19/09 at 1535, Routine, Pre Op Day of Surgery New Bag 04/19/2009 8:46 EDT 1,000 mL 25 mL/hr documented in this encounter Historical Medications * This list may reflect changes made after this encounter. amlodipine (NORVASC) 10 mg tablet Take 10 mg by mouth daily. Multivitamins with Minerals Tab Take 1 Tab by mouth daily. betamethasone dipropionate (DIPROLENE) 0.05 % ointment Apply 0.05 Tubes topically as needed. fluticasone (FLONASE) 50 mcg/Actuation nasal spray 1 [place] by Nasal route as needed. Fenofibrate 54 mg Tab Take 54 mg by mouth daily. omeprazole (PRILOSEC) 20 mg capsule Take 20 mg by mouth daily as needed. 0 meloxicam (MOBIC) 15 mg tablet Take 15 mg by mouth daily as needed for Pain. 0 buPROPion (WELLBUTRIN XL) 150 mg XL tablet Take 150 mg by mouth daily. 0 added in this encounter Active and Recently Administered Medications Times are shown in EDT. Continuous Medication Order 04/17/2009 04/18/2009 04/19/2009 lactated ringers (LR) infusion (CANCELED) at 25 mL/hr, 1,000 mL, intravenous, CONTINUOUS, Starting on Evelina 04/19/09 at 0900, Until Evelina 04/19/09 at 1535, Routine, Pre Op Day of Surgery 0846 (New Bag - Prov ider: Bri Le RN)1329 (Completed - Provider: Bri Le RN) documented in this encounter Orders Medications Ordered That Elton ht Not Have Been Administered Count Last Ordered Date First Ordered Date atropine 0.1 mg/mL 10 mL syringe 0.5 mg 1 0 04/19/2009 lactated ringers (LR) infusion 1 04/19/2009 naloxone (NARCAN) injection 0.2 mg 1 2008 propofol (DIPRIVAN) infusion 1 04/19/2009 Nursing Count Last Ordered Date First Orde red Date APPLY WARMING BLANKET 1 04/19/2009 CARDIAC MONITORING 1 04/19/2009 MONITOR AIRWAY 1 04/19/2009 NOTIFY SERVICE 1 04/19/2009 PULSE OXIMETRY 1 04/19/2009 VITAL SIGNS 1 04/19/2009 Admission Count Last Ordered Date First Orde red Date NOTIFY PPS OF DISCHARGE COMPLETE 1 04/19/20 documented in this encounter Care Teams Oil And Gas Principal Relationship Specialty Start Date End Date Bj Alves MD [address] [place] [address] PCP - General 02/28/09 documented as of this encounter
--- OUTSIDE RECORDS SUMMARY | 2024-08-01 15:33 | XMS_ITS | Encounter Summary ---
Author Organization [facility] Address [address] [place] [address] Care Team Providers Care Recordings Librarian Name Role Phone Bj Alves MD Primary Care Provider [phone] Encounter Details Date Type Department Care Team ([facility] st Contact Info) Description 03/27/2009 Orders Only [facility] [phone] Lidya Al MD [address] [place], [place] [id number] Social History Tobacco Use Types Packs/Day Years [...] on filedocumented in this encounter Care Teams Recordings Librarian Relationship Specialty Start Date End Date Bj Alves MD [address] [place], [place] [phone] PCP - General 02/28/09 documented as of this encounter
--- OUTSIDE RECORDS SUMMARY | 2024-08-01 15:33 | XMS_ITS | Encounter Summary ---
Author Organization [facility] Address [address] [place] [address] Care Team Providers Care Dairy Technologist Name Role Phone Unavailable Primary Care Provider Unavailabl e Encounter Details Date Type Department Care Team (Late st Contact Info) Description 12/27/2002 9:15 EDT Hospital Encounter [facility] - [place] [address] [place] [address] Bj Alves MD [address] [place] [phone] Social History Tobacco Use Types Packs/Day Years [...]
--- OUTSIDE RECORDS SUMMARY | 2024-08-01 15:33 | XMS_ITS | Encounter Summary ---
Author Organization [facility] Address [address] [place] [address] Care Team Providers Care Cement Loader Name Role Phone Unavailable Primary Care Provider Unavailabl e Encounter Details Date Type Department Care Team (Late st Contact Info) Description 08/10/2002 9:28 EST Hospital Encounter [facility] - [place] [address] [place] [address] Bj Alves MD [address] [place] [phone] Social History Tobacco Use Types Packs/Day Years [...]
--- OUTSIDE RECORDS SUMMARY | 2024-08-01 15:33 | XMS_ITS | Encounter Summary ---
Author Organization [facility] Address [address] [place] [address] Care Team Providers Care Automobile Damage Field Appraiser Name Role Phone Bj Alves MD Primary Care Provider [phone] Encounter Details Date Type Department Care Team (Late st Contact Info) Description 11/10/2011 Results Only [facility] - [facility] [place] [place] [address], [place] [phone] Skyler Parrish MD [address] [place] [address] [phone] Social History Tobacco Use Types Packs/Day Years [...] Procedure Name Priority Date/Time Associated Diagnosis Comments CYTOPATHOLOGY Routine 11/10/2011 0:00 EDT documented in this encounter Results * CYTOPATHOLOGY (11/10/2011 0:00 EDT) Pathology Report: CYTOPATHOLOGY REPORT Reports generated via electronic interface contain original data; however they are lacking the format of the original report. Caution should be taken when reading/interpreti ng unformatted reports. Name: ? SEBASTIAN RUBI ? Accession #: ? [id number] : ? 1955 (Age: 56) ??M ?Collect Date: ? 11/10/2011 Location: ? [facility] ? Receive Date: ? 11/12/2011 Provider: ? SKYLER PARRISH MD Copy to: ? CYTOLOGIC DIAGNOSIS: ? Neck, left, mass, fine needle aspiration: 1. ?Positive for malignant cells. 2. ? Squamous cell carcinoma, keratinizing. ?? Document reviewed and electronically signed by: ? JAN BRUNSON MD Report Date: ??11/12/2011 15:58 By the signature above, the attending physician certifies that he/she has personally conducted a gross and/or microscopic examination of the described specimens and rendered or confirmed the above diagnosis. Specimen Type: ? Head/Neck, Fine Needle Aspiration, Left Neck Mass Clinical History: ? Left neck mass; clinical diagnosis code: 784.2 ? Gross Description: ? One vial of CytoLyt was received and processed by selective cellular enhancement technique. ? End of Report [facility] 11/10/2011 11/12/2011 8:0 1 EDT us Skyler Parrish MD PATHOLOGY ORDERABLES Final Resul t [facility] [address] [place] [address] documented in this encounter Visit Diagnoses Not on filedocumented in this encounter Care Teams Automobile Damage Field Appraiser Relationship Specialty Start Date End Date Bj Alves MD [address] [place] [address] PCP - General 02/28/09 documented as of this encounter
[2024-08-01 22:10] LABS: PSA, Diagnostic 1.3 ng/mL (<=4.5)
== END 2024-08-01 15:20 | disposition home or self-care (01) ==
LOC: LBO 15:22
PROVIDERS: PCP Family Medicine; Visit Provider Nurse Practitioner Gerontology
DX: N40.1 Benign prostatic hyperplasia with lower urinary tract symptoms (principal); N13.8 Other obstructive and reflux uropathy; R97.20 Elevated prostate specific antigen [PSA]
CPT/HCPCS: 36415; 84153